=== PATIENT | female | born 1935 | race Caucasian/White ===

== ENCOUNTER 2016-11-25 12:01 | Emergency (ER) | payer MEDICARE, OTHER ==
[~2016-11-25] VITALS: Ht 165.1 cm; Wt 103.0 kg
[~2016-11-25 12:01] MED LIST: ACET-62 PO; APIX5TAB PO; BACI1CAP4 PO; CALC-850 PO CHEW; CHOL400T23 PO; CYCL5TAB PO; DONE10TA PO; FERR142T14 PO; GABA-305 PO; LEVO112T7 PO; LORA0.5T2 PO; MELA5TAB14 PO; MELO-273 PO; MEMA28CA PO; NITR0.4T39 PO; OMEP20CA4 PO; ONDA4TAB7 SL; OXYC1TAB66 PO; PRIM50TA30 PO; PROM25TA7 PO; VENL75TA4 PO; [UNRECOGNIZED DRUG - CODE] PO
[2016-11-25 12:05] VITALS: Ht 165.1 cm; Wt 103.0 kg
--- OUTSIDE RECORDS SUMMARY | 2016-11-25 12:05 | XMS REPORT | Continuity of Care Document ---
Author Author [facility] Organization [facility] Address Unknown Phone Unavailable Allergies Medications Problems Procedures Results Encounters ACCT No. Visit Date/Time Discharge Status Pt. Type Provider Facility Loc./Unit Complaint [id number] 11/21/2013 12:44:00 11/21/2013 23 :59:59 CLS Outpatient [id number] 11/07/2013 15:10:00 11/07/2013 23 :59:59 CLS Outpatient [id number] 11/05/2013 14:25:00 11/05/2013 23 :59:59 CLS Outpatient [id number] 10/17/2013 14:13:00 10/17/2013 23 :59:59 CLS Outpatient [id number] 10/15/2013 14:49:00 10/15/2013 23 :59:59 CLS Outpatient [id number] 09/24/2013 15:27:00 09/24/2013 23 :59:59 CLS Outpatient [id number] 09/09/2013 14:29:00 09/09/2013 23 :59:59 CLS Outpatient
--- OUTSIDE RECORDS SUMMARY | 2016-11-25 12:07 | XMS REPORT | Continuity of Care Document ---
Author Author [facility] Organization [facility] Address Unknown Phone Unavailable Support Name Relationship Address Phone ELDA TRACEY MD Caregiver [address] [place] [phone] STEPHANE WARNER MD Caregiver [address] [place] [phone] VALENTINA PUTNAM Next Of Kin [address] [place], [place] [id number] Insurance Providers Payer Name Policy Number Subscriber Name Relationship Medicare [id number] Diana Brunson 18 Self Other A Insurance [id number] Diana Brunson 18 Self Advance Directives Directive Response Recorded Date/Time Advanced Directives Type None 10/03/14 10:07pm Problems Medical Problems Problem Onset Date Status INTRACTABLE N/V, HYPONATREMIA Unknown Active Hyponatremia Unknown Active Intermittent confusion Unknown Active Mild hypovolemia Unknown Active REFRACTORY NAUSEA & VOMITING Unknown Active Chronic headache Unknown Active UTI (lower urinary tract infection) Unknown Active Decreased appetite Unknown Active Abdominal pain Unknown Active Chronic headache Unknown Active Gait instability Unknown Active Nausea Unknown Active Gait instability Unknown Active CAD (coronary artery disease) Unknown Active Hypercholesterolemia Unknown Active Hypothyroidism Unknown Active GERD (gastroesophageal reflux disease) Unknown Active History of kidney stones Unknown Resolved Myoclonic jerking Unknown Active Laceration of head Unknown Active Fall Unknown Active Laceration of head Unknown Active Gastroenteritis Unknown Active GERD (gastroesophageal reflux disease) Unknown Active Abdominal pain Unknown Active Intractable nausea and vomiting Unknown Active History of cardiac arrhythmia Unknown Active Aortic stenosis Unknown Active Depression Unknown Active Gastroenteritis Unknown Active Hypokalemia Unknown Resolved UTI (lower urinary tract infection) Unknown Active Syncopal episodes Unknown Active Medications Medication Dose Route Sig Days/Qty Instructions Order Date Discontinued Date Status Ibandronate Sodium 150 Mg PO MONTHLY 06/30/09 08/18/09 Discontinued Potassium Chloride 10 Meq PO NEEDED 05/04/10 05/07/10 Discontinued Omeprazole 20 Mg PO DAILY 10/25/08 06/29/09 Discontinued Orlistat 120 Mg PO DAILY 06/30/09 05/03/10 Discontinued Simvastatin 20 Mg PO DAILY 06/30/09 05/03/10 Discontinued Multivitamins 1 Tab PO DAILY 05/04/10 05/07/10 Discontinued Tramadol Hcl 50 Mg PO NEEDED 05/07/10 12/26/12 Discontinued Simvastatin 40 Mg PO DAILY 05/04/10 05/07/10 Discontinued Ascorbic Acid 1,000 Mg PO 2-3 TIMES A WK 05/04/10 05/07/10 Discontinued Glucosa [place] 2KCL/Chondroitin [place] 1 Cap PO 2-3 TIMES A WK 05/04/1011/11 Discontinued Fish Oil/Tyler-3 Fatty Acids 1 Cap PO NEEDED 05/07/10 08/05/10 Discontinued Calcium Carbonate 1 Tab PO DAILY 05/07/10 12/27/12 Discontinued Ferrous Sulfate 1 Tab PO DAILY 05/04/10 05/07/10 Discontinued Polyethylene Glycol 3350 17 Gm PO DAILY 05/07/10 12/10/10 Discontinued Fondaparinux Sodium 2.5 Mg SQ DAILY 05/07/10 07/30/10 Discontinued Docusate Sodium 100 Mg PO TWICE A DAY 05/07/10 07/30/10 Discontinued Potassium Chloride 10 Meq PO DAILY 05/07/10 03/05/13 Discontinued Simvastatin 40 Mg PO BEDTIME 05/07/10 Active Omeprazole 40 Mg PO NEEDED 07/30/10 12/10/10 Discontinued Citalopram Hydrobromide 40 Mg PO DAILY 12/09/10 12/27/12 Discontinued Ascorbic Acid 2,000 Mg PO DAILY 12/09/10 03/05/13 Discontinued Glucosamine Hcl/Chondr [place] A Na 1 Tab PO DAILY 12/09/10 01/02/11 Discontinued Multivitamins W-Minerals 1 Cap PO DAILY 12/09/10 01/02/11 Discontinued Levothyroxine Sodium 100 Mcg PO DAILY 10/22/12 Active Meloxicam 7.5 Mg PO DAILY 10/22/12 Active Prednisone 10 Mg PO DAILY 10/22/12 12/26/12 Discontinued Venlafaxine Hcl 75 Mg PO TWICE A DAY 12/27/12 10/25/13 Discontinued Hydrocodone Bit/Acetaminophen 1 Tab PO EVERY 4 HOURS 12/27/12 Discontinued Donepezil Hcl 10 Mg PO BEDTIME 10/25/13 Active Venlafaxine Hcl 75 Mg PO TWICE A DAY 03/24/14 Active Omeprazole 1 Cap PO DAILY 04/11/14 Active Divalproex Sodium 1 Tab PO TWICE A DAY 04/11/14 Active Ciprofloxacin HCl DAILY 04/11/14 06/23/14 Discontinued Gabapentin 1 Tab PO BEDTIME 04/11/14 06/23/14 Discontinued Hydrocodone/Acetaminophen 1 Tab PO Every 6 Hours 04/11/14 Active Sotalol HCl 80 Mg PO TWICE A DAY 04/11/14 Active Ondansetron 4 Mg PO FOUR TIMES DAILY PRN NAUSEA &/OR VOMITING 4 Qty 06/23/14 Discontinued Gabapentin 600 Mg PO THREE TIMES A DAY 30 Days 06/23/14 Active Cyclobenzaprine HCl 1 Tab PO TWICE A DAY MAY CAUSE DROWSINESS OR DIZZINESS 07/10/14 Active Ciprofloxacin HCl 250 Mg PO DAILY 30 Qty 07/10/14 Active Memantine HCl 5 Mg PO DAILY 10/03/14 Active Lactobacillus Combination No.4 10/03/14 Active Ferrous Sulfate Unknown Dose PO GIVE WITH BREAKFAST 10/03/14 Active Social History Social History Problem Response Recorded Date/Time Hx Substance Use No 10/03/2014 11:53pm Hx Alcohol Use No 10/03/2014 11:53pm Has the pt used tobacco in the last 12 months No 06/20/2014 7:02am Tobacco Usage none 06/20/2014 11:43am Query Response Start Date Stop Date Smoking Status Unknown if ever smoked Hospital Discharge Instructions No hospital discharge instructions. Plan of Care No plan of care. Functional Status Query Response Date Recorded Physical Hygiene Self October 03, 2014 11:53pm Disabilities None October 03, 2014 11:53pm Devices Used None October 03, 2014 11:53pm Dressing Self October 03, 2014 11:53pm Ambulation Assist October 03, 2014 11:53pm Diet Self October 03, 2014 11:53pm Mental Status Alert Oriented October 04, 2014 12:37am Disabilities None October 03, 2014 11:53pm Devices Used None October 03, 2014 11:53pm Physical Hygiene Self October 03, 2014 11:53pm Dressing Self October 03, 2014 11:53pm Ambulation Assist October 03, 2014 11:53pm Diet Self October 03, 2014 11:53pm Allergies, Adverse Reactions, Alerts Allergen Type Severity Reaction Status Last Updated naproxen sodium Adverse Reaction Intermediate HIGH BP, SOA Active 10/03/14 Iodinated Contrast Media - IV Dye Allergy Unknown RASH,SOA Active 10/03/14 Penicillin Allergy Severe ANAPHYLACTIC-ENDED IN ICU FOR A DAY Active 10/03 Sulfa (Sulfonamide Antibiotics) Allergy Unknown RASH,ITCHY Active 10/03/14 Morphine Allergy Unknown Active 10/03/14 Aspirin Adverse Reaction Intermediate HIGH BP, SOA Active 10/03/14 Nitrofurantoin Allergy Unknown Active 10/03/14 Fluoxetine Allergy Unknown Active 10/03/14 Metoclopramide Adverse Reaction Unknown Active 10/03/14 Immunizations Name Given Type Hx Influenza Vaccination N ALLERGIC TO VACCINE Historical Hx Pneumococcal Vaccination No Historical Hx Tetanus, Diptheria, Pertussis No Historical Hx Influenza Vaccination N ALLERGIC TO VACCINE Historical Hx Tetanus, Diptheria, Pertussis No Historical Vital Signs Acute Vital Signs Vital Response Date/Time Temperature (Fahrenheit) 98.2 deg F (96.8 - 99.1) Temperature (Calculated Celsius) 36.65274 degrees C (36.0 - 37.3) Pulse Rate (adult) 66 bpm (60 - 100) Respiratory Rate 16 breaths/min (10 - 20) O2 Sat by Pulse Oximetry 96 % (90 - 100) Blood Pressure 160/78 mm Hg Height 5 ft 6 in Weight 173 lb Body Mass Index 27.0 kg/m^2 Results Test Source Date Result Interp. Ref. Range Comments Activated Partial Thromboplast Time April 11, 2014 11:34am 30.2 SEC N 24-36 Alanine Aminotransferase (ALT/SGPT) October 03, 2014 10:10pm 32 U/L N 9- 52 Albumin October 03, 2014 10:10pm 3.6 G/DL N 3.5-5.0 Albumin/Globulin Ratio October 03, 2014 10:10pm 1.3 RATIO N 1.1-2.2 Alkaline Phosphatase October 03, 2014 10:10pm 70 U/L N 38-126 Amylase Level June 20, 2014 1:09am 58 U/L N 30-110 Anion Gap October 03, 2014 10:10pm 11 MEQ/L N 5-15 Aspartate Amino Transf (AST/SGOT) October 03, 2014 10:10pm 26 U/L N 14- 36 B-Type Natriuretic Peptide December 12, 2007 10:50am 139 PG/ML H 15-100 BUN/Creatinine Ratio October 03, 2014 10:10pm 27 RATIO H 6-26 Band Neutrophils # March 05, 2013 11:19am 2.4 T/MM3 - Band Neutrophils % March 05, 2013 11:19am 11.0 % H 0-6 Basophils # (Auto) October 03, 2014 10:10pm 0.0 T/MM3 N 0-0.2 Basophils (%) (Auto) October 03, 2014 10:10pm 0.3 % N 0-2 Blood Urea Nitrogen October 03, 2014 10:10pm 24.0 MG/DL H 7-17 Calcium Level October 03, 2014 10:10pm 8.7 MG/DL N 8.4-10.2 Calculated Osmolality October 03, 2014 10:10pm 269 MOSM/KG N 261-280 Carbon Dioxide Level October 03, 2014 10:10pm 24 MEQ/L N 22-30 Chemistry Specimen Hemolysis October 03, 2014 10:10pm < 15 0-25 0-25 : No Hemolysis.26-70: Slight Hemolysis - can falsely elevate K and Urine Protein. 71-285: Moderate Hemolysis - can falsely elevate K, Troponin I, CA 19-9, PTH, CSF GLucose, and Urine Protein, and can falsely decrease Phenytoin. 286-999: Gross Hemolysis - can falsely elevate K, Troponin I, CA 19-9, PTH, CSF Glucose, and Urine Protine, and can falsely decrease Phenytoin. Recommend specimen recollection. Chloride Level October 03, 2014 10:10pm 103 MEQ/L N 98-107 Cortisol AM Sample January 14, 2008 8:19am Send out - Creatinine October 03, 2014 10:10pm 0.9 MG/DL N 0.7-1.2 EKG August 17, 2009 11:29pm Complete - Eosinophils # (Auto) October 03, 2014 10:10pm 0.1 T/MM3 N 0-0.5 Eosinophils (%) (Auto) October 03, 2014 10:10pm 1.6 % N 0-4 Erythrocyte Sedimentation Rate March 05, 2013 11:19am 33 MM/HR H 0-20 Fractionated Catecholamines February 26, 2008 2:15pm Sent out - Free Thyroxine January 14, 2008 8:19am 0.67 NG/DL L 0.78-2.19 Free Triiodothyronine January 14, 2008 8:19am 2.91 PG/ML N 2.77-5.27 Globulin October 03, 2014 10:10pm 2.7 G/DL N 2.4-3.6 Glomerular Filtration Rate Calc October 03, 2014 10:10pm 60 - Glucometer June 22, 2014 2:47pm 88 mg/dL N 65-110 Glucose Level October 03, 2014 10:10pm 89 MG/DL N 65-110 Hematocrit October 03, 2014 10:10pm 30.7 % L 36-46 Hemoglobin October 03, 2014 10:10pm 10.0 GM/DL L 12-16 Icterus Index October 03, 2014 10:10pm < 2 0-7 Immature Granulocyte # (Auto) October 03, 2014 10:10pm 0.03 T/MM3 N 0.00 -0.03 Immature Granulocyte % (Auto) October 03, 2014 10:10pm 0.4 % N 0.0-0.5 Lab Scanned Report April 12, 2010 9:33am LAB TEST FORM REQUEST [id number] - Lipase June 20, 2014 1:09am 138 U/L N 23-300 Lymphocytes # (Auto) October 03, 2014 10:10pm 2.5 T/MM3 N 1-4.8 Lymphocytes # (Manual) March 05, 2013 11:19am 1.5 T/MM3 N 1-4.8 Lymphocytes % (Manual) March 05, 2013 11:19am 7.0 % L 23-45 Lymphocytes (%) (Auto) October 03, 2014 10:10pm 34.2 % N 23-45 MRSA Specimen Source April 12, 2010 9:18am Nasal - Magnesium Level June 21, 2014 4:56am 1.9 MG/DL N 1.6-2.3 COMMENT wyatt Mean Corpuscular Hemoglobin October 03, 2014 10:10pm 31.4 UUG N 26-34 Mean Corpuscular Hemoglobin Concent October 03, 2014 10:10pm 32.6 GM/DL N 31-37 Mean Corpuscular Volume October 03, 2014 10:10pm 96.5 UM3 N 80-100 Mean Platelet Volume October 03, 2014 10:10pm 9.8 UM3 N 9.4-12.4 Methicillin-Resist S.aureus DNA PCR April 12, 2010 9:18am Negative - Monocytes # (Auto) October 03, 2014 10:10pm 1.2 T/MM3 H 0-0.8 Monocytes # (Manual) March 05, 2013 11:19am 1.7 T/MM3 H 0-0.8 Monocytes % (Manual) March 05, 2013 11:19am 8.0 % N 0-9.0 Monocytes (%) (Auto) October 03, 2014 10:10pm 15.9 % H 0-9.0 HJ-Qyr-O-Type Natriuretic Peptide October 03, 2014 10:10pm 863 PG/ML H 0 -175 Rule in cut points: <50 years old=450; 50-75 years old=900; >75 years old=1800; When utilizing ProBNP rule-in cut points, adjustment for impaired renal function is typically not required. Neutrophils # (Auto) October 03, 2014 10:10pm 3.5 T/MM3 N 1.8-7.7 Neutrophils # (Manual) March 05, 2013 11:19am 16.0 T/MM3 H 1.8-7.7 Neutrophils % (Manual) March 05, 2013 11:19am 74.0 % H 33-66 Neutrophils (%) (Auto) October 03, 2014 10:10pm 47.6 % N 33-66 Platelet Count October 03, 2014 10:10pm 231 T/MM3 N 130-400 Potassium Level October 03, 2014 10:10pm 4.2 MEQ/L N 3.6-5 Prealbumin April 11, 2014 11:34am 15.9 MG/DL L 17.6-36.0 COMMENT blood in lab Procalcitonin April 11, 2014 11:34am < 0.05 NG/ML - PCT </=0.5 ng/ mL - sepsis not likely;PCT >0.5 and </=2 ng/mL - sepsis possible; PCT >2 ng/mL - sepsis likely; PCT >/=10 ng/mL - systemic inflammatory response - sepsis or septic shock highly indicated. Prothromb Time International Ratio April 11, 2014 11:34am 0.93 N 0.81- 1.09 THERAPUTIC RANGE=2.00-3.00 FOR ANTI-THROMBOSIS THERAPUTIC RANGE=2.50- 3.50 FOR IMPLANTED VALVE RDW Standard Deviation October 03, 2014 10:10pm 50.5 FL H 36.9-50.2 Red Blood Count October 03, 2014 10:10pm 3.18 M/MM3 L 4.00-5.20 Sodium Level October 03, 2014 10:10pm 138 MEQ/L N 134-144 Somatomedin-C January 14, 2008 8:19am Send out - Tests Not Done August 17, 2009 11:57pm Not done - Has specimen been collected/obtained? Y Thyroid Stimulating Hormone (TSH) April 11, 2014 11:34am 0.52 MIU/L N 0.47-4.68 Total Bilirubin October 03, 2014 10:10pm 0.30 MG/DL N 0.20-1.30 Total Protein October 03, 2014 10:10pm 6.3 G/DL N 6.3-8.2 Troponin I October 03, 2014 10:10pm 0.017 ng/ml N 0-0.12 Turbidity October 03, 2014 10:10pm < 20 0-20 Urinalysis Comment October 04, 2014 12:05am Microscopic not ind. - Has specimen been collected/obtained? Y Urine Bacteria July 10, 2014 3:55pm 3+ H - Has specimen been collected/obtained? Y Urine Bilirubin October 04, 2014 12:05am Negative - Has specimen been collected/obtained? Y Urine Blood October 04, 2014 12:05am Negative - Has specimen been collected/obtained? Y Urine Calcium Oxalate Crystals May 04, 2010 9:20am Moderate - Has specimen been collected/obtained? Y Urine Collection Type October 04, 2014 12:05am Voided-not cc-midstr - Has specimen been collected/obtained? Y Urine Color October 04, 2014 12:05am Yellow - Has specimen been collected/obtained? Y Urine Culture Indicated July 10, 2014 3:55pm Cult reflexed &setup - Has specimen been collected/obtained? Y Urine Glucose (UA) October 04, 2014 12:05am Negative - Has specimen been collected/obtained? Y Urine Ketones October 04, 2014 12:05am Negative - Has specimen been collected/obtained? Y Urine Leukocyte Esterase October 04, 2014 12:05am Trace H - Has specimen been collected/obtained? Y Urine Microscopic Not Indicated August 05, 2010 8:01am Not indicated - Has specimen been collected/obtained? Y Urine Nitrite October 04, 2014 12:05am Negative - Has specimen been collected/obtained? Y Urine Protein October 04, 2014 12:05am Negative - Has specimen been collected/obtained? Y Urine RBC July 10, 2014 3:55pm 1-3 /HPF - Has specimen been collected/obtained? Y Urine Renal Epithelial Cells May 04, 2010 9:20am 3-5 /HPF - Has specimen been collected/obtained? Y Urine Specific [place] October 04, 2014 12:05am 1.025 - Has specimen been collected/obtained? Y Urine Squamous Epithelial Cells July 10, 2014 3:55pm 0-5 - Has specimen been collected/obtained? Y Urine Transitional Epithelial Cells May 04, 2010 9:20am 0-1 /HPF - Has specimen been collected/obtained? Y Urine Turbidity October 04, 2014 12:05am Clear - Has specimen been collected/obtained? Y Urine Urobilinogen October 04, 2014 12:05am 0.2 EU/DL - Has specimen been collected/obtained? Y Urine WBC July 10, 2014 3:55pm 50-200 /HPF H - Has specimen been collected/obtained? Y Urine WBC Clumps March 05, 2013 12:50pm Many H - Has specimen been collected/obtained? Y Urine pH October 04, 2014 12:05am 5.5 - Has specimen been collected/ obtained? Y Valproic Acid (Depakene) Level October 03, 2014 10:10pm 32.4 UG/ML L 50- 120 Venous Blood Lactate April 11, 2014 11:34am 0.9 MMOL/L N 0.6-2.2 Vitamin B12 Level April 11, 2014 11:34am 747 PG/ML N 239-931 COMMENT blood in lab White Blood Count October 03, 2014 10:10pm 7.4 T/MM3 N 4.5-11.0 Blood Culture Blood April 11, 2014 11:37am NO GROWTH AFTER 5 DAYS Gram Stain Knee, Intraoperative Site-Right May 04, 2010 1:53pm Urine Culture Urine, Straight Cath July 10, 2014 4:31pm Escherichia Coli Procedures Procedure Status Date Provider(s) COMPREHEN METABOLIC PANEL completed 07/10/14 URINALYSIS AUTO W/SCOPE completed 07/10/14 COMPLETE CBC W/AUTO DIFF WBC completed 07/10/14 CULTURE AEROBIC IDENTIFY completed 07/10/14 URINE CULTURE/COLONY COUNT completed 07/10/14 MICROBE SUSCEPTIBLE GRAEME completed 07/10/14 HYDRATE IV INFUSION ADD-ON completed 07/10/14 HYDRATE IV INFUSION ADD-ON completed 07/10/14 THER/PROPH/DIAG INJ IV PUSH completed 07/10/14 EMERGENCY DEPT VISIT completed 07/10/14 [id number] ITEM OR SERVICE completed 07/10/14 [id number]"INJECTION, HYDROMORPHONE, UP TO 4 MG" completed 07/10/14 [id number]"INFUSION, NORMAL SALINE SOLUTION , 1000 CC" completed 07/10/14 Encounters Encounter Location Date/Time Departed Emergency Room [facility] 10/03/14 10:07pm Departed Emergency Room [facility] 07/10/14 2:48pm Recent Diagnosis
--- OUTSIDE RECORDS SUMMARY | 2016-11-25 12:07 | XMS REPORT | Continuity of Care Document ---
Author Author [facility] Organization [facility] Address Unknown Phone Unavailable Support Name Relationship Address Phone VALENTINA PUTNAM Next Of Kin [address] [place] [address] Unavailable Insurance Providers Payer Name Policy Number Subscriber Name Relationship Medicare [id number] Diana Brunson 16 Self [employer] [id number] Diana Brunson 16 Self Problems No Known Problems or Medical conditions. Family History History Response Recorded Date/Time HX of Orthopedic Surgeries N however, hear due to compression fx t-11 2:59pm Hx Abdominal Surgery Y moises, GASTRIC BYPASS 03/05/13 2:59pm HX Cerebrovascular Accident N 03/05/13 2:59pm Hx Seizures N 03/05/13 2:59pm Hx Angina Y 03/05/13 11:24am Hx Congestive Heart Failure N 03/05/13 2:59pm Hx Heart Attack N 03/05/13 2:59pm Hx Hypertension N 03/05/13 2:59pm Hx Rheumatic Fever N 03/05/13 11:24am Hx Chronic Obstructive Pulmonary Disease (COPD) N 03/05/13 2:59pm Hx Diabetes N 03/05/13 2:59pm Hx Cancer N 03/05/13 2:59pm Hx MRSA N 03/05/13 2:59pm HX of Cardiac Surgeries N 03/05/13 2:59pm HX of Reproductive Surgeries N 03/05/13 2:59pm HX of Endocrine Surgeries Y thyroidectomy 03/05/13 2:59pm HX of Throat Surgery N 03/05/13 2:59pm HX of Neurological Surgeries N 03/05/13 2:59pm HX of Genitourinary Surgeries N 03/05/13 2:59pm Cardiac CAD 01/02/11 9:34pm Social History History Response Recorded Date/Time Smoking Status Never smoker 03/05/13 2:59pm Hx Substance Use N 03/05/13 11:24am Hx Alcohol Use N 03/05/13 11:24am Has the pt used tobacco in the last 12 months N 03/05/13 2:59pm Allergies, Adverse Reactions, Alerts Allergen Type Severity Reaction Last Updated naproxen sodium Adverse Reaction Intermediate HIGH BP, SOA 03/05/13 Iodinated Contrast Media - IV Dye Allergy Unknown RASH,SOA 03/05/13 Penicillins Allergy Severe ANAPHYLACTIC-ENDED IN ICU FOR A DAY 03/05/13 Sulfa (Sulfonamide Antibiotics) Allergy Unknown RASH,ITCHY 03/05/13 morphine Allergy Unknown 03/05/13 aspirin Adverse Reaction Intermediate HIGH BP, SOA 03/05/13 Nitrofurantoin Allergy Unknown 03/05/13 fluoxetine Allergy Unknown 03/05/13 metoclopramide Adverse Reaction Unknown 03/05/13 Medications Medication Dose Units Route Sig Qty Days Promethazine Hcl (Phenergan) 25 Mg PO PRN Prednisone 10 Mg PO DAILY Hydrocodone Bit/Acetaminophen ([place] 7.5/325 Tablet) 1 Tab PO Q4HR Venlafaxine Hcl (Effexor) 75 Mg PO BID Cyclobenzaprine Hcl (Flexeril) 5 Mg PO DAILY Meloxicam (Mobic) 7.5 Mg PO BID Levothyroxine Sodium 125 Mcg PO DAILY Simvastatin (Zocor) 20 Mg PO HS Sotalol Hcl (Sotalol Af) 80 Mg PO BID Zolpidem Tartrate (Ambien) 10 Mg PO HS Ascorbic Acid (Vitamin C) 2000 Mg PO DAILY Potassium Chloride 10 Meq PO DAILY Citalopram Hydrobromide (Celexa) 40 Mg PO DAILY Calcium Carbonate (Calcium) 1 Tab PO DAILY Prednisone 10 Mg PO DAILY Tramadol Hcl (Ultram) 50 Mg PO PRN Immunizations Name Given Type Hx Influenza Vaccination N H Hx Pneumococcal Vaccination N H Hx Tetanus, Diptheria, Pertussis N H Response Recorded Date/Time Status not known Unknown Results Test Date Result Interp. Ref. Range Activated Partial Thromboplast Time March 05, 2013 11:19am 31.7 sec - Alanine Aminotransferase (ALT/SGPT) March 05, 2013 11:19am 35 U/L N 9-52 Albumin March 05, 2013 11:19am 3.3 G/DL L 3.5-5.0 Albumin/Globulin Ratio March 05, 2013 11:19am 1.3 RATIO N 1.1-2.2 Alkaline Phosphatase March 05, 2013 11:19am 78 U/L N 38-126 Amylase Level August 17, 2009 11:46pm 45 U/L N 30-110 Anion Gap March 09, 2013 4:42am 10 MEQ/L N 5-15 Aspartate Amino Transf (AST/SGOT) March 05, 2013 11:19am 31 U/L N 14-36 B-Type Natriuretic Peptide December 12, 2007 10:50am 139 PG/ML H 15-100 BUN/Creatinine Ratio March 09, 2013 4:42am 20 RATIO N 6-26 Band Neutrophils # March 05, 2013 11:19am 2.4 T/MM3 - Band Neutrophils % March 05, 2013 11:19am 11.0 % H 0-6 Basophils # (Auto) March 09, 2013 4:42am 0.0 T/MM3 N 0-0.2 Basophils (%) (Auto) March 09, 2013 4:42am 0.2 % N 0-2 Blood Urea Nitrogen March 09, 2013 4:42am 8.0 MG/DL N 7-17 Calcium Level March 09, 2013 4:42am 8.0 MG/DL L 8.4-10.2 Calculated Osmolality March 09, 2013 4:42am 270 MOSM/KG N 261-280 Carbon Dioxide Level March 09, 2013 4:42am 28 MEQ/L N 22-30 Chloride Level March 09, 2013 4:42am 104 MEQ/L N 98-107 Cortisol AM Sample January 14, 2008 8:19am Send out - Creatinine March 09, 2013 4:42am 0.4 MG/DL DL 0.7-1.2 Eosinophils # (Auto) March 09, 2013 4:42am 0.1 T/MM3 N 0-0.5 Eosinophils (%) (Auto) March 09, 2013 4:42am 0.9 % N 0-4 Erythrocyte Sedimentation Rate March 05, 2013 11:19am 33 MM/HR H 0-20 Fractionated Catecholamines February 26, 2008 2:15pm Sent out - Free Thyroxine January 14, 2008 8:19am 0.67 NG/DL L 0.78-2.19 Free Triiodothyronine January 14, 2008 8:19am 2.91 PG/ML N 2.77-5.27 Globulin March 05, 2013 11:19am 2.6 G/DL N 2.4-3.6 Glucose Level March 09, 2013 4:42am 89 MG/DL N 65-110 Hematocrit March 09, 2013 4:42am 30.8 % L 36-46 Hemoglobin March 09, 2013 4:42am 9.8 GM/DL L 12-16 Lipase August 17, 2009 11:46pm 98 U/L N 23-300 Lymphocytes # (Auto) March 09, 2013 4:42am 1.2 T/MM3 N 1-4.8 Lymphocytes # (Manual) March 05, 2013 11:19am 1.5 T/MM3 N 1-4.8 Lymphocytes % (Manual) March 05, 2013 11:19am 7.0 % L 23-45 Lymphocytes (%) (Auto) March 09, 2013 4:42am 23.0 % N 23-45 Magnesium Level March 05, 2013 11:19am 1.7 MG/DL N 1.6-2.3 Mean Corpuscular Hemoglobin March 09, 2013 4:42am 29.1 UUG N 26-34 Mean Corpuscular Hemoglobin Concent March 09, 2013 4:42am 31.8 GM/DL N 31- 37 Mean Corpuscular Volume March 09, 2013 4:42am 91.4 UM3 N 80-100 Mean Platelet Volume March 09, 2013 4:42am 9.4 UM3 N 9.4-12.4 Monocytes # (Auto) March 09, 2013 4:42am 0.8 T/MM3 N 0-0.8 Monocytes # (Manual) March 05, 2013 11:19am 1.7 T/MM3 H 0-0.8 Monocytes % (Manual) March 05, 2013 11:19am 8.0 % N 0-9.0 Monocytes (%) (Auto) March 09, 2013 4:42am 14.4 % H 0-9.0 Neutrophils # (Auto) March 09, 2013 4:42am 3.2 T/MM3 N 1.8-7.7 Neutrophils # (Manual) March 05, 2013 11:19am 16.0 T/MM3 H 1.8-7.7 Neutrophils % (Manual) March 05, 2013 11:19am 74.0 % H 33-66 Neutrophils (%) (Auto) March 09, 2013 4:42am 59.8 % N 33-66 Platelet Count March 09, 2013 4:42am 259 T/MM3 N 130-400 Potassium Level March 09, 2013 4:42am 4.0 MEQ/L DN 3.6-5 Prothromb Time International Ratio March 05, 2013 11:19am 1.20 N 0.79-1.23 RDW Standard Deviation March 09, 2013 4:42am 46.5 FL N 36.9-50.2 Red Blood Count March 09, 2013 4:42am 3.37 M/MM3 L 4.00-5.20 Sodium Level March 09, 2013 4:42am 142 MEQ/L N 134-144 Somatomedin-C January 14, 2008 8:19am Send out - Tests Not Done August 17, 2009 11:57pm Not done - Thyroid Stimulating Hormone (TSH) January 14, 2008 8:19am 1.51 MIU/ML N 0.47- 4.68 Total Bilirubin March 05, 2013 11:19am 0.60 MG/DL N 0.20-1.30 Total Protein March 05, 2013 11:19am 5.9 G/DL L 6.3-8.2 Troponin I March 05, 2013 9:30pm 0.082 ng/ml N 0-0.12 Urine Bacteria March 05, 2013 12:50pm 4+ H - Urine Bilirubin March 05, 2013 12:50pm Negative - Urine Blood March 05, 2013 12:50pm 3+ H - Urine Calcium Oxalate Crystals May 04, 2010 9:20am Moderate - Urine Collection Type March 05, 2013 12:50pm Straight cath - Urine Color March 05, 2013 12:50pm Yellow - Urine Culture Indicated March 05, 2013 12:50pm Cult reflexed &setup - Urine Glucose (UA) March 05, 2013 12:50pm Negative - Urine Ketones March 05, 2013 12:50pm Negative - Urine Leukocyte Esterase March 05, 2013 12:50pm 2+ H - Urine Nitrite March 05, 2013 12:50pm Negative - Urine Protein March 05, 2013 12:50pm Trace H - Urine RBC March 05, 2013 12:50pm 1-3 /HPF - Urine Renal Epithelial Cells May 04, 2010 9:20am 3-5 /HPF - Urine Specific [place] March 05, 2013 12:50pm 1.015 - Urine Squamous Epithelial Cells March 05, 2013 12:50pm 10-20 - Urine Transitional Epithelial Cells May 04, 2010 9:20am 0-1 /HPF - Urine Turbidity March 05, 2013 12:50pm Very cloudy - Urine Urobilinogen March 05, 2013 12:50pm 1 EU/DL - Urine WBC March 05, 2013 12:50pm 10-20 /HPF H - Urine WBC Clumps March 05, 2013 12:50pm Many H - Urine pH March 05, 2013 12:50pm 5.0 - White Blood Count March 09, 2013 4:42am 5.4 T/MM3 N 4.5-11.0 Urinalysis Comment October 22, 2012 8:16pm Microscopic not ind. - Glucometer March 05, 2013 11:12am 153 mg/dL H 65-110 EKG August 17, 2009 11:29pm Complete - Methicillin-Resist S.aureus DNA PCR April 12, 2010 9:18am Negative - Glomerular Filtration Rate Calc March 09, 2013 4:42am 154 - Immature Granulocyte # (Auto) March 09, 2013 4:42am 0.09 T/MM3 H 0.00-0.03 Immature Granulocyte % (Auto) March 09, 2013 4:42am 1.7 % H 0.0-0.5 Venous Blood Lactate March 05, 2013 12:25pm 1.3 MMOL/L N 0.6-2.2 Procalcitonin March 05, 2013 12:45pm 20.56 NG/ML PH - MRSA Specimen Source April 12, 2010 9:18am Nasal - Urine Microscopic Not Indicated August 05, 2010 8:01am Not indicated - Name: DIANA BRUNSON Unit #: [id number]
: 1935 Sex: F
Loc / Svc: MED Admit Date: 03/05/13
Signed Discharge Date:
DISCHARGE SUMMARY Report #: [id number]

General
Date
Date
DATE: 03/09/13
TIME: 13:07
Attending Physician
Abigail Glass DO
Admitting Physician
Abigail Glass DO
Consulting Physician
Admitting Diagnosis
1. UTI with sepsis< br>2. SIRS
3. Leukocytosis with bandemia
4. Chronic headaches due to prior closed head injury
5. Hypotension
6. Recent fx vertebrae
7. Chronic pain syndrome r/t #4, #7
8. Narcotic dependency r/t #7
9. Hypokalemia. K 2.6
10. Mitral valve prolapse
11. Prior gastric bypass with revision
Discharge Diagnosis
1. UTI with sepsis -- Escherichia coli noted on urine culture
2. bacteremia, ecoli / strep ashton pastuerianus
3. Leukocytosis with bandemia
4. Chronic headaches due to prior closed head injury
5. Hypotension
6. Recent fx vertebrae
7. Chronic pain syndrome r /t #4, #7
8. Narcotic dependency r/t #7
9. Hypokalemia.
10. Mitral valve prolapse
11. Prior gastric bypass with revision
12. Hyponatremia- improved
Procedures
none
Laboratory
Laboratory
Laboratory Tests< br>Test 03/09/13
04:42

White Blood Count 5.4 T/MM3

Red Blood Count 3.37 M/MM3

Hemoglobin 9.8 GM/DL

Hematocrit 30.8 %

Mean Corpuscular Volume 91.4 UM3

Mean Corpuscular Hemoglobin 29.1 UUG

Mean Corpuscular Hemoglobin 31.8 GM/DL
Concent

RDW Standard Deviation 46.5 FL

Platelet Count 259 T/MM3

Mean Platelet Volume 9.4 UM3

Immature Granulocyte % (Auto) 1.7 %

Neutrophils (%) ( Auto) 59.8 %

Lymphocytes (%) (Auto) 23.0 %

Monocytes (%) (Auto) 14.4 %

Eosinophils (%) (Auto) 0.9 %

Basophils (%) (Auto) 0.2 %< br>
Immature Granulocyte # (Auto) 0.09 T/MM3

Neutrophils # (Auto) 3.2 T/MM3

Lymphocytes # (Auto) 1.2 T/MM3

Monocytes # (Auto) 0.8 T/MM3

Eosinophils # (Auto) 0.1 T/MM3

Basophils # (Auto) 0.0 T/ MM3

Sodium Level 142 MEQ/L

Potassium Level 4.0 MEQ/L

Chloride Level 104 MEQ/L

Carbon Dioxide Level 28 MEQ/L

Anion Gap 10 MEQ/L

Blood Urea Nitrogen 8.0 MG/DL

Creatinine 0.4 MG/DL< br>
Glomerular Filtration Rate 154
Calc

BUN/Creatinine Ratio 20 RATIO

Glucose Level 89 MG/DL

Calculated Osmolality 270 MOSM/ KG

Calcium Level 8.0 MG/DL
History of Present Illness
Mrs. Brunson is a 77 year old female who was noted to have difficulty getting her words out starting
last night. Family concerned because 2 years ago she fell face first and has suffered some ongoing
headaches as a result. She has seen multiple neurologists, last seeing Dr. Price in [facility]. She is
on Ultram and Lortab for chronic pain. Daughter Lela reports concern patient was having a stroke so
brought her to ER for evaluation. patient verbalizes thinking she has had a fever recently,
although has not checked it. Denies cough. In Er Mrs. Brunson was found to have WBC 21.6 with a left
shift and bandemia. K 2.6. Procalcitonin 20.56. Urine noted to be grossly infected appearing with 4
+ bacteria, WBC clumps. She was given a dose of IV Levaquin and admitted as an inpt to the
hospitalist service for further monitoring and treatment.
Hospital Course
Pt admitted to the inpt unit under the hospitalist service. She was started on Levaquin, but this
was later changed to rocephin as her C &S revealed better abx coverage with this agent. She was
given IVF, and pain and nausea were controlled with PRN medications. She was given protonix and
SCDs for DVT and GI proteciton. She was given po and IV K for repletion. Overall her hospital stay
was one of steady improvement. PT did see her during her stay and she made good gains with them.
They day of discharge she was feeling well, still having some nausea but po intake was good. She
felt ready to go home. She was instructed to f/u with Dr Amin next week and rxs were called for
keflex 500mg TID for 10 days and zofran ODT #30 for prn nausea control. No other changes were made
to her medications. Should her s/s recur she could contact Dr Amin through the office or return
to the ED for emergent evalaution
Home Meds
Reported Medications
Promethazine Hcl (Phenergan) 25 Mg Tablet 25 Mg PO PRN

Prednisone 10 Mg Tablet 10 Mg PO DAILY
12/27/12
Hydrocodone Bit/Acetaminophen ([place] 7.5/325 Tablet) 1 Tab Tablet 1 Tab PO Q4HR
12/27
Venlafaxine Hcl (Effexor) 75 Mg Tablet 75 Mg PO BID
12/27/12
Cyclobenzaprine Hcl (Flexeril) 5 Mg Tablet 5 Mg PO DAILY
10/22/12
Meloxicam (Mobic) 7.5 Mg Tablet 7.5 Mg PO BID
10/22/12
Levothyroxine Sodium 125 Mcg Tablet 125 Mcg PO DAILY
10/22/12
Simvastatin (Zocor) 20 Mg Tablet 20 Mg PO HS Ref 0
05/07/10
Sotalol Hcl (Sotalol Af) 80 Mg Tablet 80 Mg PO BID Ref 0
05/07/10
Zolpidem Tartrate (Ambien) 10 Mg Tablet 10 Mg PO HS Ref 0
05/07/10
Discontinued Reported Medications
Ascorbic Acid (Vitamin C) 1000 Mg Tablet 2000 Mg PO DAILY Ref 0
12/09
Potassium Chloride 10 Meq Capsule.sa 10 Meq PO DAILY Ref 0

Discharge Disposition
stable
ABIGAIL GLASS Mar 09, 2013 13:14 Procedures Procedure Code Date DIAGNOSTIC COLONOSCOPY 82319 06/30/09 TOTAL KNEE REPLACEMENT 81.54 05/04/10 PACKED CELL TRANSFUSION 99.04 05/07/10 AMBULAT & GAIT TRAINING 93.22 05/07/10 OCCUPATIONAL THERAPY 93.83 05/07/10 THER/PROPH/DIAG INJ IV PUSH 45308 07/30/10 TX/PRO/DX INJ NEW DRUG ADDON 18918 07/30/10 REMOVAL OF THYROID 03220 12/10/10 CONTROL OF NOSEBLEED 31073 01/02/11 THER/PROPH/DIAG INJ IV PUSH 73944 01/02/11 HYDRATE IV INFUSION ADD-ON 45743 01/02/11 CONTROL OF NOSEBLEED 26013 10/22/12 Blood Culture 03/05/13 Gram Stain 05/04/10 Urine Culture 03/05/13 Encounters Encounter Location Date/Time Discharged Inpatient [facility] 03/05/13 1:24pm Departed Emergency Room [facility] 10/22/12 7:19pm
--- OUTSIDE RECORDS SUMMARY | 2016-11-25 12:08 | XMS REPORT | Continuity of Care Document ---
Author Author [facility] Organization [facility] Address Unknown Phone Unavailable Support Name Relationship Address Phone TANNER HUANG MD Caregiver [address] [place] [address] [place] [id number] ELDA TRACEY MD Caregiver [address] [place] [address] [place] [address] [phone] STEPHANE WARNER MD Caregiver [address] [place] [address] [place] [address] VALENTINA PUTNAM Next Of Kin [address] [place], [place] [id number] Insurance Providers Payer Name Policy Number Subscriber Name Relationship Medicare [id number] Diana Brunson 16 Self [place] 1977 Diana Brunson 16 Self Advance Directives Directive Response Recorded Date/Time Advanced Directives Type Living Will DPOA for Healthcare 04/11/14 1:25pm Ordered Resuscitation Status Full Code 04/11/14 3:27pm Chief Complaint and Reason for Visit Chief Complaint GAIT INSTABILITY Reason for Visit Gait instability Nausea Gait instability CAD (coronary artery disease) Hypercholesterolemia Hypothyroidism GERD (gastroesophageal reflux disease) History of kidney stones Myoclonic jerking Problems Medical Problems Problem Onset Date Status [...] stones Unknown Resolved Myoclonic jerking Unknown Active Medications Medication Dose Route Sig Days/Qty Instructions Order Date Discontinued Date Status Zolpidem Tartrate 10 Mg PO BEDTIME 05/07/10 Active Ibandronate Sodium 150 Mg PO MONTHLY 06/30/09 [...] 2-3 TIMES A WK 05/04/1011/11 Discontinued Fish Oil/[place]-3 Fatty Acids 1 Cap PO NEEDED 05/07/10 [...] PO DAILY 12/09/10 01/02/11 Discontinued Levothyroxine Sodium 125 Mcg PO DAILY 10/22/12 Active Meloxicam 7.5 [...] DAY 04/11/14 Active Ciprofloxacin HCl DAILY 04/11/14 Active Gabapentin 1 Tab PO BEDTIME 04/11/14 Active Hydrocodone/Acetaminophen 1 Tab PO Every 6 Hours 04/11/14 Active Sotalol HCl 80 Mg PO TWICE A DAY 04/11/14 Active Social History Social History Problem Response Recorded Date/Time Smoking Status Never smoker 04/11/2014 1:32pm Hx Substance Use No 04/11/2014 10:35am Hx Alcohol Use No 04/11/2014 10:35am Has the pt used tobacco in the last 12 months No 04/11/2014 1:32pm Query Response Start Date Stop Date Smoking Status Never smoker Hospital Discharge Instructions Instructions: Care Instructions: Reason for Hospitalization: Myoclonic jerking I was in the hospital because (patient own words): IT WAS HARD TO WALK AND I HAD A HEADACHE Discharge Diet: Cardiac, plenty of fluids Discharge Activity: As tolerated Follow Up Appointments: Dr Mcguire in ~ 1 week Condition at time of discharge: Good Care Plan Discharge Patient: Goal: Understand discharge plan Patient Instructions: see patient instructions Plan of Care Discharge Date 04/12/14 3:30pm Disposition 01 DISCHARGED HOME, SELF-CARE Instructions/Education Provided Myoclonus DI for Dehydration -- Adult Prescriptions See Medications Section Functional Status Query Response Date Recorded Physical Hygiene Self April 12, 2014 2:46pm Disabilities None April 12, 2014 2:46pm Devices Used Cane April 12, 2014 2:46pm Dressing Self April 12, 2014 2:46pm Ambulation Self April 12, 2014 2:46pm Diet Self April 12, 2014 2:46pm Mental Status Alert April 12, 2014 2:46pm Disabilities None April 12, 2014 2:46pm Devices Used Cane April 12, 2014 2:46pm Physical Hygiene Self April 12, 2014 2:46pm Dressing Self April 12, 2014 2:46pm Ambulation Self April 12, 2014 2:46pm Diet Self April 12, 2014 2:46pm Allergies, Adverse Reactions, Alerts Allergen Type Severity Reaction Status Last Updated naproxen sodium Adverse Reaction Intermediate HIGH BP, SOA Active 04/11/14 Iodinated Contrast Media - IV Dye Allergy Unknown RASH,SOA Active 04/11/14 Penicillin Allergy Severe ANAPHYLACTIC-ENDED IN ICU FOR A DAY Active 04/11 Sulfa (Sulfonamide Antibiotics) Allergy Unknown RASH,ITCHY Active 04/11/14 Morphine Allergy Unknown Active 04/11/14 Aspirin Adverse Reaction Intermediate HIGH BP, SOA Active 04/11/14 Nitrofurantoin Allergy Unknown Active 04/11/14 Fluoxetine Allergy Unknown Active 04/11/14 Metoclopramide Adverse Reaction Unknown Active 04/11/14 Immunizations Name Given Type Hx Influenza Vaccination N ALLERGIC TO VACCINE Historical Hx Pneumococcal Vaccination No Historical Hx Tetanus, Diptheria, Pertussis No Historical Hx Influenza Vaccination N ALLERGIC TO VACCINE Historical Hx Tetanus, Diptheria, Pertussis No Historical Vital Signs Acute Vital Signs Vital Response Date/Time Temperature (Fahrenheit) 98.3 deg F (96.8 - 99.1) Temperature (Calculated Celsius) 36.53419 degrees C (36.0 - 37.3) Temperature Source Oral Pulse Rate (adult) 62 bpm (60 - 100) Respiratory Rate 16 breaths/min (10 - 20) O2 Sat by Pulse Oximetry 99 % (90 - 100) Blood Pressure 152/83 mm Hg Blood Pressure Source Automatic Cuff Height 5 ft 5 in Weight 155 lb Body Mass Index 25.0 kg/m^2 Results Test Source Date Result Interp. Ref. Range Comments Activated Partial Thromboplast Time April 11, 2014 11:34am 30.2 SEC N 24-36 Alanine Aminotransferase (ALT/SGPT) April 11, 2014 11:34am 30 U/L N 9- 52 Albumin April 11, 2014 11:34am 3.2 G/DL L 3.5-5.0 Albumin/Globulin Ratio April 11, 2014 11:34am 1.2 RATIO N 1.1-2.2 Alkaline Phosphatase April 11, 2014 11:34am 82 U/L N 38-126 Amylase Level March 24, 2014 3:00pm 69 U/L N 30-110 Anion Gap April 12, 2014 4:12am 10 MEQ/L N 5-15 Aspartate Amino Transf (AST/SGOT) April 11, 2014 11:34am 33 U/L N 14- 36 B-Type Natriuretic Peptide December 12, 2007 10:50am 139 PG/ML H 15-100 BUN/Creatinine Ratio April 12, 2014 4:12am 17 RATIO N 6-26 Band Neutrophils # March 05, 2013 11:19am 2.4 T/MM3 - Band Neutrophils % March 05, 2013 11:19am 11.0 % H 0-6 Basophils # (Auto) April 12, 2014 4:12am 0.0 T/MM3 N 0-0.2 Basophils (%) (Auto) April 12, 2014 4:12am 0.7 % N 0-2 Blood Urea Nitrogen April 12, 2014 4:12am 10.0 MG/DL N 7-17 Calcium Level April 12, 2014 4:12am 8.5 MG/DL N 8.4-10.2 Calculated Osmolality April 12, 2014 4:12am 266 MOSM/KG N 261-280 Carbon Dioxide Level April 12, 2014 4:12am 29 MEQ/L N 22-30 Chemistry Specimen Hemolysis April 12, 2014 4:12am < 15 0-25 0-25: No Hemolysis.26-70: Slight Hemolysis - can falsely elevate K and Urine Protein. 71-285: Moderate Hemolysis - can falsely elevate K, Troponin I, CA 19-9, PTH, CSF GLucose, and Urine Protein, and can falsely decrease Phenytoin. 286-999: Gross Hemolysis - can falsely elevate K, Troponin I, CA 19-9, PTH, CSF Glucose, and Urine Protine, and can falsely decrease Phenytoin. Recommend specimen recollection. Chloride Level April 12, 2014 4:12am 100 MEQ/L N 98-107 Cortisol AM Sample January 14, 2008 8:19am Send out - Creatinine April 12, 2014 4:12am 0.6 MG/DL L 0.7-1.2 EKG August 17, 2009 11:29pm Complete - Eosinophils # (Auto) April 12, 2014 4:12am 0.1 T/MM3 N 0-0.5 Eosinophils (%) (Auto) April 12, 2014 4:12am 2.6 % N 0-4 Erythrocyte Sedimentation Rate March 05, 2013 11:19am 33 MM/HR H 0-20 Fractionated Catecholamines February 26, 2008 2:15pm Sent out - Free Thyroxine January 14, 2008 8:19am 0.67 NG/DL L 0.78-2.19 Free Triiodothyronine January 14, 2008 8:19am 2.91 PG/ML N 2.77-5.27 Globulin April 11, 2014 11:34am 2.6 G/DL N 2.4-3.6 Glomerular Filtration Rate Calc April 12, 2014 4:12am 96 - Glucometer October 27, 2013 10:10am 129 mg/dL H 65-110 Glucose Level April 12, 2014 4:12am 89 MG/DL N 65-110 Hematocrit April 12, 2014 4:12am 33.9 % L 36-46 Hemoglobin April 12, 2014 4:12am 10.9 GM/DL L 12-16 Icterus Index April 12, 2014 4:12am < 2 0-7 Immature Granulocyte # (Auto) April 12, 2014 4:12am 0.04 T/MM3 H 0.00- 0.03 Immature Granulocyte % (Auto) April 12, 2014 4:12am 0.9 % H 0.0-0.5 Lab Scanned Report April 12, 2010 9:33am LAB TEST FORM REQUEST [id number] - Lipase March 24, 2014 3:00pm 181 U/L N 23-300 Lymphocytes # (Auto) April 12, 2014 4:12am 1.5 T/MM3 N 1-4.8 Lymphocytes # (Manual) March 05, 2013 11:19am 1.5 T/MM3 N 1-4.8 Lymphocytes % (Manual) March 05, 2013 11:19am 7.0 % L 23-45 Lymphocytes (%) (Auto) April 12, 2014 4:12am 32.8 % N 23-45 MRSA Specimen Source April 12, 2010 9:18am Nasal - Magnesium Level April 11, 2014 11:34am 2.0 MG/DL N 1.6-2.3 Mean Corpuscular Hemoglobin April 12, 2014 4:12am 30.2 UUG N 26-34 Mean Corpuscular Hemoglobin Concent April 12, 2014 4:12am 32.2 GM/DL N 31-37 Mean Corpuscular Volume April 12, 2014 4:12am 93.9 UM3 N 80-100 Mean Platelet Volume April 12, 2014 4:12am 9.0 UM3 L 9.4-12.4 Methicillin-Resist S.aureus DNA PCR April 12, 2010 9:18am Negative - Monocytes # (Auto) April 12, 2014 4:12am 0.7 T/MM3 N 0-0.8 Monocytes # (Manual) March 05, 2013 11:19am 1.7 T/MM3 H 0-0.8 Monocytes % (Manual) March 05, 2013 11:19am 8.0 % N 0-9.0 Monocytes (%) (Auto) April 12, 2014 4:12am 15.7 % H 0-9.0 YR-Ehx-A-Type Natriuretic Peptide April 11, 2014 11:34am 715 PG/ML H 0- 175 Rule in cut points: <50 years old=450; 50-75 years old=900; >75 years old=1800; When utilizing ProBNP rule-in cut points, adjustment for impaired renal function is typically not required. Neutrophils # (Auto) April 12, 2014 4:12am 2.2 T/MM3 N 1.8-7.7 Neutrophils # (Manual) March 05, 2013 11:19am 16.0 T/MM3 H 1.8-7.7 Neutrophils % (Manual) March 05, 2013 11:19am 74.0 % H 33-66 Neutrophils (%) (Auto) April 12, 2014 4:12am 47.3 % N 33-66 Platelet Count April 12, 2014 4:12am 314 T/MM3 N 130-400 Potassium Level April 12, 2014 4:12am 3.9 MEQ/L N 3.6-5 Prealbumin April 11, 2014 [...] 3.50 FOR IMPLANTED VALVE RDW Standard Deviation April 12, 2014 4:12am 46.0 FL N 36.9-50.2 Red Blood Count April 12, 2014 4:12am 3.61 M/MM3 L 4.00-5.20 Sodium Level April 12, 2014 4:12am 139 MEQ/L N 134-144 Somatomedin-C January 14, 2008 8:19am Send out - Tests Not Done August 17, 2009 11:57pm Not done - Has specimen been collected/obtained? Y Thyroid Stimulating Hormone (TSH) April 11, 2014 11:34am 0.52 MIU/L N 0.47-4.68 Total Bilirubin April 11, 2014 11:34am < 0.10 MG/DL L 0.20-1.30 Total Protein April 11, 2014 11:34am 5.8 G/DL L 6.3-8.2 Troponin I April 11, 2014 11:34am < 0.012 ng/ml 0-0.12 Turbidity April 12, 2014 4:12am < 20 0-20 Urinalysis Comment April 11, 2014 10:55am Microscopic not ind. - Has specimen been collected/obtained? Y Urine Bacteria March 24, 2014 3:50pm 3+ H - Has specimen been collected/ obtained? Y Urine Bilirubin April 11, 2014 10:55am Negative - Has specimen been collected/obtained? Y Urine Blood April 11, 2014 10:55am Negative - Has specimen been collected/obtained? Y Urine Calcium Oxalate Crystals May 04, 2010 9:20am Moderate - Has specimen been collected/obtained? Y Urine Collection Type April 11, 2014 10:55am Straight cath - Has specimen been collected/obtained? Y Urine Color April 11, 2014 10:55am Yellow - Has specimen been collected/obtained? Y Urine Culture Indicated March 24, 2014 3:50pm Cult reflexed &setup - Has specimen been collected/obtained? Y Urine Glucose (UA) April 11, 2014 10:55am Negative - Has specimen been collected/obtained? Y Urine Ketones April 11, 2014 10:55am Negative - Has specimen been collected/obtained? Y Urine Leukocyte Esterase April 11, 2014 10:55am Negative - Has specimen been collected/obtained? Y Urine Microscopic Not Indicated August 05, 2010 8:01am Not indicated - Has specimen been collected/obtained? Y Urine Nitrite April 11, 2014 10:55am Negative - Has specimen been collected/obtained? Y Urine Protein April 11, 2014 10:55am Negative - Has specimen been collected/obtained? Y Urine RBC March 24, 2014 3:50pm 1-3 /HPF - Has specimen been collected /obtained? Y Urine Renal Epithelial Cells May 04, 2010 9:20am 3-5 /HPF - Has specimen been collected/obtained? Y Urine Specific [place] April 11, 2014 10:55am 1.020 - Has specimen been collected/obtained? Y Urine Squamous Epithelial Cells March 05, 2013 12:50pm 10-20 - Has specimen been collected/obtained? Y Urine Transitional Epithelial Cells May 04, 2010 9:20am 0-1 /HPF - Has specimen been collected/obtained? Y Urine Turbidity April 11, 2014 10:55am Clear - Has specimen been collected/obtained? Y Urine Urobilinogen April 11, 2014 10:55am 0.2 EU/DL - Has specimen been collected/obtained? Y Urine WBC March 24, 2014 3:50pm 20-30 /HPF H - Has specimen been collected/obtained? Y Urine WBC Clumps March 05, 2013 12:50pm Many H - Has specimen been collected/obtained? Y Urine pH April 11, 2014 10:55am 7.0 - Has specimen been collected/ obtained? Y Venous Blood Lactate April 11, 2014 11:34am 0.9 MMOL/L N 0.6-2.2 Vitamin B12 Level April 11, 2014 11:34am 747 PG/ML N 239-931 COMMENT blood in lab White Blood Count April 12, 2014 4:12am 4.6 T/MM3 N 4.5-11.0 Blood Culture Blood April 11, 2014 11:37am NO GROWTH AFTER 24 HOURS Gram Stain Knee, Intraoperative Site-Right May 04, 2010 1:53pm Urine Culture Urine, Straight Cath March 24, 2014 4:31pm Escherichia Coli Name: DIANA BRUNSON Unit #: [id number] : 1935 Sex: F Loc / Svc: ED DOS: 04/11/14 Signed Report #: [id number] DIAGNOSTIC IMAGING REPORT TYPE OF EXAM: CT HEAD W/O CONTRAST Dictated By: KOLBY KIM MD INDICATION: ITS.REASON: altered, AMANDA CT HEAD W/O CONTRAST: Comparison: March 05, 2013 Technique: Axial CT images through the head were performed without contrast. FINDINGS: The ventricles are of normal size, shape, and contour for the patient 's age. There are scattered areas of low attenuation in the white matter which most likely represent changes from chronic microvascular ischemia. The brainstem, cerebellum, and cerebral hemispheres otherwise have a normal morphology and CT attenuation. There is no evidence of midline displacement. No hemorrhage , signs of acute territorial stroke, mass effect, mass lesions, or edema is evident. The visualized portions of the skull base, midface, and calvarium demonstrate no abnormality. The paranasal sinuses are well aerated and free of significant disease. The tympanic and mastoid cavities appear normal. IMPRESSION: No acute intracranial abnormality or hemorrhage. . Procedures Procedure Status Date Provider(s) THER/PROPH/DIAG INJ IV PUSH completed 03/24/14 Encounters Encounter Location Date/Time Discharged Inpatient [facility] 04/11/14 12:51pm Departed Emergency Room [facility] 03/24/14 2:48pm Recent Diagnosis Gait instability Nausea Gait instability CAD (coronary artery disease) Hypercholesterolemia Hypothyroidism GERD (gastroesophageal reflux disease) History of kidney stones Myoclonic jerking
--- OUTSIDE RECORDS SUMMARY | 2016-11-25 12:08 | XMS REPORT | Continuity of Care Document ---
Author Author [facility] Organization [facility] Address Unknown Phone Unavailable Support Name Relationship Address Phone ELDA AMIN MD Caregiver [address] [place] [phone] ELIZABETH GARZA MD Caregiver [address] [place] [phone] VALENTINA PUTNAM Next Of Kin [address] [place], [place] [id number] Insurance Providers Payer Name Policy Number Subscriber Name Relationship Medicare [id number] Diana Brunson 18 Self Other A Insurance [id number] Diana Brunson 16 Self Advance Directives Directive Response Recorded Date/Time Advanced Directives Type Living Will DPOA for Healthcare 07/10/14 3:19pm Chief Complaint and Reason for Visit Chief Complaint Nausea,Vomiting,Diarrhea Reason for Visit Gastroenteritis [id number] Abdominal pain Problems Medical Problems Problem Onset Date Status [...] UTI (lower urinary tract infection) Unknown Active Medications Medication Dose Route Sig [...] 2-3 TIMES A WK 05/04/1011/11 Discontinued Fish Oil/Amboy-3 Fatty Acids 1 Cap PO NEEDED 05/07/10 [...] TIMES A DAY 30 Days 06/23/14 Active Ondansetron 4 Mg PO Q6H/0300,0900,1500,2100 30 Qty Oral disintegrating tablet 06/23/14 Active Cyclobenzaprine HCl 1 Tab PO TWICE A DAY 07/10/14 Active Ciprofloxacin HCl 1 Tab PO TWICE A DAY 10 Qty 07/10/14 Active Ciprofloxacin HCl 250 Mg PO DAILY 30 Qty 07/10/14 Active Social History Social History Problem Response Recorded Date/Time Smoking Status Never smoker 07/10/2014 3:29pm Hx Substance Use No 07/10/2014 3:29pm Hx Alcohol Use No 07/10/2014 3:29pm Has the pt used tobacco in the last 12 months No 06/20/2014 7:02am Query Response Start Date Stop Date Smoking Status Never smoker Hospital Discharge Instructions Instructions: Care Instructions: Reason for Hospitalization: hypokalemia, intractable vomiting I was in the hospital because (patient own words): "NAUSEA" Discharge Activity: As Tolerated Follow Up Appointments: FOLLOW UP WITH DR. AMIN ON 06/30/14 AT 9:30 AM Patient Instructions: Resume home medications as directed Condition at time of discharge: Good Have blood checked on 07/14 as outpatient. Notify Physician If: 1. Call your surgeon if you are having problems relating to your bowels at [phone]. 2. Please call Dr[address] Alicea or return to the emergency room if you develope fevers, chills, chest pain, shortness of breath, abdominal pain, dizziness with standing, passing out. Condition at time of discharge: Good Good Good General Information: n/a Condition at time of discharge: Fair Plan of Care Discharge Date 06/23/14 4:05pm Disposition 01 DISCHARGED HOME, SELF-CARE Condition at Discharge Improved Instructions/Education Provided [place] Diet Nausea and Vomiting-Adult Prescriptions See Medications Section Referrals ELDA AMIN MD 3 Days Functional Status Query Response Date Recorded Physical Hygiene Self July 10, 2014 3:29pm Disabilities None July 10, 2014 3:29pm Devices Used Walker July 10, 2014 3:29pm Dressing Self July 10, 2014 3:29pm Ambulation Assist July 10, 2014 3:29pm Diet Assist July 10, 2014 3:29pm Mental Status Alert Oriented July 10, 2014 3:29pm Disabilities None July 10, 2014 3:29pm Devices Used Walker July 10, 2014 3:29pm Physical Hygiene Self July 10, 2014 3:29pm Dressing Self July 10, 2014 3:29pm Ambulation Assist July 10, 2014 3:29pm Diet Assist July 10, 2014 3:29pm Allergies, Adverse Reactions, Alerts Allergen Type Severity Reaction Status Last Updated naproxen sodium Adverse Reaction Intermediate HIGH BP, SOA Active 07/10/14 Iodinated Contrast Media - IV Dye Allergy Unknown RASH,SOA Active 07/10/14 Penicillin Allergy Severe ANAPHYLACTIC-ENDED IN ICU FOR A DAY Active 06/20 Sulfa (Sulfonamide Antibiotics) Allergy Unknown RASH,ITCHY Active 07/10/14 Morphine Allergy Unknown Active 07/10/14 Aspirin Adverse Reaction Intermediate HIGH BP, SOA Active 07/10/14 Nitrofurantoin Allergy Unknown Active 07/10/14 Fluoxetine Allergy Unknown Active 07/10/14 Metoclopramide Adverse Reaction Unknown Active 07/10/14 Immunizations Name Given Type Hx Influenza Vaccination N ALLERGIC TO VACCINE Historical Hx Pneumococcal Vaccination No Historical Hx Tetanus, Diptheria, Pertussis No Historical Hx Influenza Vaccination N ALLERGIC TO VACCINE Historical Hx Tetanus, Diptheria, Pertussis No Historical Vital Signs Acute Vital Signs Vital Response Date/Time Temperature (Fahrenheit) 97.2 deg F (96.8 - 99.1) Temperature (Calculated Celsius) 36.78175 degrees C (36.0 - 37.3) Pulse Rate (adult) 65 bpm (60 - 100) Respiratory Rate 16 breaths/min (10 - 20) O2 Sat by Pulse Oximetry 94 % (90 - 100) Blood Pressure 160/70 mm Hg Height 5 ft 5 in Weight 163 lb Body Mass Index 27.0 kg/m^2 Results Test Source Date Result Interp. Ref. Range Comments Activated Partial Thromboplast Time April 11, 2014 11:34am 30.2 SEC N 24-36 Alanine Aminotransferase (ALT/SGPT) July 10, 2014 3:50pm 33 U/L N 9- 52 Albumin July 10, 2014 3:50pm 3.3 G/DL L 3.5-5.0 Albumin/Globulin Ratio July 10, 2014 3:50pm 1.2 RATIO N 1.1-2.2 Alkaline Phosphatase July 10, 2014 3:50pm 91 U/L N 38-126 Amylase Level June 20, 2014 1:09am 58 U/L N 30-110 Anion Gap July 10, 2014 3:50pm 5 MEQ/L N 5-15 Aspartate Amino Transf (AST/SGOT) July 10, 2014 3:50pm 25 U/L N 14- 36 B-Type Natriuretic Peptide December 12, 2007 10:50am 139 PG/ML H 15-100 BUN/Creatinine Ratio July 10, 2014 3:50pm 23 RATIO N 6-26 Band Neutrophils # March 05, 2013 11:19am 2.4 T/MM3 - Band Neutrophils % March 05, 2013 11:19am 11.0 % H 0-6 Basophils # (Auto) July 10, 2014 3:50pm 0.0 T/MM3 N 0-0.2 Basophils (%) (Auto) July 10, 2014 3:50pm 0.8 % N 0-2 Blood Urea Nitrogen July 10, 2014 3:50pm 14.0 MG/DL N 7-17 Calcium Level July 10, 2014 3:50pm 8.4 MG/DL N 8.4-10.2 Calculated Osmolality July 10, 2014 3:50pm 259 MOSM/KG L 261-280 Carbon Dioxide Level July 10, 2014 3:50pm 28 MEQ/L N 22-30 Chemistry Specimen Hemolysis July 10, 2014 3:50pm < 15 0-25 0-25 : No Hemolysis.26-70: [...] decrease Phenytoin. Recommend specimen recollection. Chloride Level July 10, 2014 3:50pm 101 MEQ/L N 98-107 Cortisol AM Sample January 14, 2008 8:19am Send out - Creatinine July 10, 2014 3:50pm 0.6 MG/DL L 0.7-1.2 EKG August 17, 2009 11:29pm Complete - Eosinophils # (Auto) July 10, 2014 3:50pm 0.1 T/MM3 N 0-0.5 Eosinophils (%) (Auto) July 10, 2014 3:50pm 1.3 % N 0-4 Erythrocyte Sedimentation Rate March 05, 2013 11:19am 33 MM/HR H 0-20 Fractionated Catecholamines February 26, 2008 2:15pm Sent out - Free Thyroxine January 14, 2008 8:19am 0.67 NG/DL L 0.78-2.19 Free Triiodothyronine January 14, 2008 8:19am 2.91 PG/ML N 2.77-5.27 Globulin July 10, 2014 3:50pm 2.8 G/DL N 2.4-3.6 Glomerular Filtration Rate Calc July 10, 2014 3:50pm 96 - Glucometer June 22, 2014 2:47pm 88 mg/dL N 65-110 Glucose Level July 10, 2014 3:50pm 97 MG/DL N 65-110 Hematocrit July 10, 2014 3:50pm 32.9 % L 36-46 Hemoglobin July 10, 2014 3:50pm 10.6 GM/DL L 12-16 Icterus Index July 10, 2014 3:50pm < 2 0-7 Immature Granulocyte # (Auto) July 10, 2014 3:50pm 0.01 T/MM3 N 0.00 -0.03 Immature Granulocyte % (Auto) July 10, 2014 3:50pm 0.2 % N 0.0-0.5 Lab Scanned Report April 12, 2010 9:33am LAB TEST FORM REQUEST [id number] - Lipase June 20, 2014 1:09am 138 U/L N 23-300 Lymphocytes # (Auto) July 10, 2014 3:50pm 1.9 T/MM3 N 1-4.8 Lymphocytes # (Manual) March 05, 2013 11:19am 1.5 T/MM3 N 1-4.8 Lymphocytes % (Manual) March 05, 2013 11:19am 7.0 % L 23-45 Lymphocytes (%) (Auto) July 10, 2014 3:50pm 35.6 % N 23-45 MRSA Specimen Source April 12, 2010 9:18am Nasal - Magnesium Level June 21, 2014 4:56am 1.9 MG/DL N 1.6-2.3 COMMENT wyatt Mean Corpuscular Hemoglobin July 10, 2014 3:50pm 30.9 UUG N 26-34 Mean Corpuscular Hemoglobin Concent July 10, 2014 3:50pm 32.2 GM/DL N 31-37 Mean Corpuscular Volume July 10, 2014 3:50pm 95.9 UM3 N 80-100 Mean Platelet Volume July 10, 2014 3:50pm 9.2 UM3 L 9.4-12.4 Methicillin-Resist S.aureus DNA PCR April 12, 2010 9:18am Negative - Monocytes # (Auto) July 10, 2014 3:50pm 0.7 T/MM3 N 0-0.8 Monocytes # (Manual) March 05, 2013 11:19am 1.7 T/MM3 H 0-0.8 Monocytes % (Manual) March 05, 2013 11:19am 8.0 % N 0-9.0 Monocytes (%) (Auto) July 10, 2014 3:50pm 12.3 % H 0-9.0 LA-Opj-A-Type Natriuretic Peptide April 11, 2014 11:34am 715 PG/ML H 0- 175 Rule in cut points: <50 years old=450; 50-75 years old=900; >75 years old=1800; When utilizing ProBNP rule-in cut points, adjustment for impaired renal function is typically not required. Neutrophils # (Auto) July 10, 2014 3:50pm 2.6 T/MM3 N 1.8-7.7 Neutrophils # (Manual) March 05, 2013 11:19am 16.0 T/MM3 H 1.8-7.7 Neutrophils % (Manual) March 05, 2013 11:19am 74.0 % H 33-66 Neutrophils (%) (Auto) July 10, 2014 3:50pm 49.8 % N 33-66 Platelet Count July 10, 2014 3:50pm 284 T/MM3 N 130-400 Potassium Level July 10, 2014 3:50pm 4.4 MEQ/L N 3.6-5 Prealbumin April 11, 2014 [...] 3.50 FOR IMPLANTED VALVE RDW Standard Deviation July 10, 2014 3:50pm 51.4 FL H 36.9-50.2 Red Blood Count July 10, 2014 3:50pm 3.43 M/MM3 L 4.00-5.20 Sodium Level July 10, 2014 3:50pm 134 MEQ/L N 134-144 Somatomedin-C January 14, 2008 8:19am Send out - Tests Not Done August 17, 2009 11:57pm Not done - Has specimen been collected/obtained? Y Thyroid Stimulating Hormone (TSH) April 11, 2014 11:34am 0.52 MIU/L N 0.47-4.68 Total Bilirubin July 10, 2014 3:50pm 0.20 MG/DL N 0.20-1.30 Total Protein July 10, 2014 3:50pm 6.1 G/DL L 6.3-8.2 Troponin I April 11, 2014 11:34am < 0.012 ng/ml 0-0.12 Turbidity July 10, 2014 3:50pm < 20 0-20 Urinalysis Comment June 20, 2014 1:23am Microscopic not ind. - Has specimen been collected/obtained? Y Urine Bacteria July 10, 2014 3:55pm 3+ H - Has specimen been collected/obtained? Y Urine Bilirubin July 10, 2014 3:55pm Negative - Has specimen been collected/obtained? Y Urine Blood July 10, 2014 3:55pm Trace-intact H - Has specimen been collected/obtained? Y Urine Calcium Oxalate Crystals May 04, 2010 9:20am Moderate - Has specimen been collected/obtained? Y Urine Collection Type July 10, 2014 3:55pm Straight cath - Has specimen been collected/obtained? Y Urine Color July 10, 2014 3:55pm Yellow - Has specimen been collected/obtained? Y Urine Culture Indicated July 10, 2014 3:55pm Cult reflexed &setup - Has specimen been collected/obtained? Y Urine Glucose (UA) July 10, 2014 3:55pm Negative - Has specimen been collected/obtained? Y Urine Ketones July 10, 2014 3:55pm Negative - Has specimen been collected/obtained? Y Urine Leukocyte Esterase July 10, 2014 3:55pm Trace H - Has specimen been collected/obtained? Y Urine Microscopic Not Indicated August 05, 2010 8:01am Not indicated - Has specimen been collected/obtained? Y Urine Nitrite July 10, 2014 3:55pm Positive H - Has specimen been collected/obtained? Y Urine Protein July 10, 2014 3:55pm Negative - Has specimen been collected/obtained? Y Urine RBC July 10, 2014 3:55pm 1-3 /HPF - Has specimen been collected/obtained? Y Urine Renal Epithelial Cells May 04, 2010 9:20am 3-5 /HPF - Has specimen been collected/obtained? Y Urine Specific [place] July 10, 2014 3:55pm 1.025 - Has specimen been collected/obtained? Y Urine Squamous Epithelial Cells July 10, 2014 3:55pm 0-5 - Has specimen been collected/obtained? Y Urine Transitional Epithelial Cells May 04, 2010 9:20am 0-1 /HPF - Has specimen been collected/obtained? Y Urine Turbidity July 10, 2014 3:55pm Sl cloudy - Has specimen been collected/obtained? Y Urine Urobilinogen July 10, 2014 3:55pm 0.2 EU/DL - Has specimen been collected/obtained? Y Urine WBC July 10, 2014 3:55pm 50-200 /HPF H - Has specimen been collected/obtained? Y Urine WBC Clumps March 05, 2013 12:50pm Many H - Has specimen been collected/obtained? Y Urine pH July 10, 2014 3:55pm 6.0 - Has specimen been collected/ obtained? Y Venous Blood Lactate April 11, 2014 11:34am 0.9 MMOL/L N 0.6-2.2 Vitamin B12 Level April 11, 2014 11:34am 747 PG/ML N 239-931 COMMENT blood in lab White Blood Count July 10, 2014 3:50pm 5.3 T/MM3 N 4.5-11.0 Blood Culture Blood April 11, 2014 11:37am NO GROWTH AFTER 5 DAYS Gram Stain Knee, Intraoperative Site-Right May 04, 2010 1:53pm Urine Culture Urine, Straight Cath March 24, 2014 4:31pm Escherichia Coli Name: DIANA BRUNSON Unit #: [id number] : 1935 Sex: F DISCHARGE SUMMARY Admit Date: 06/21/14 Report #: [id number] General Date Date DATE: 06/23/14 TIME: 11:05 Attending Physician Arden Savage MD Admitting Physician Arden Savage MD Consulting Physician Admitting Diagnosis VOMITING, HYPONATREMIA Discharge Diagnosis RESOLVED INTRACTABLE VOMITING Laboratory Laboratory Laboratory Tests Test 06/22/14 06/23/14 14:47 04:52 Glucometer 88 mg/dL White Blood Count 4.3 T/MM3 Red Blood Count 3.59 M/MM3 Hemoglobin 10.9 GM/DL Hematocrit 33.8 % Mean Corpuscular Volume 94.2 UM3 Mean Corpuscular Hemoglobin 30.4 UUG Mean Corpuscular Hemoglobin 32.2 GM/DL Concent RDW Standard Deviation 51.8 FL Platelet Count 288 T/MM3 Mean Platelet Volume 9.1 UM3 Immature Granulocyte % (Auto) 0.5 % Neutrophils (%) (Auto) 45.0 % Lymphocytes (%) (Auto) 34.1 % Monocytes (%) (Auto) 18.3 % Eosinophils (%) (Auto) 1.4 % Basophils (%) (Auto) 0.7 % Immature Granulocyte # (Auto) 0.02 T/MM3 Neutrophils # (Auto) 1.9 T/MM3 Lymphocytes # (Auto) 1.5 T/MM3 Monocytes # (Auto) 0.8 T/MM3 Eosinophils # (Auto) 0.1 T/MM3 Basophils # (Auto) 0.0 T/MM3 Turbidity < 20 Sodium Level 134 MEQ/L Potassium Level 4.1 MEQ/L Chloride Level 101 MEQ/L Carbon Dioxide Level 28 MEQ/L Anion Gap 5 MEQ/L Blood Urea Nitrogen 9.0 MG/DL Creatinine 0.5 MG/DL Glomerular Filtration Rate 119 Calc BUN/Creatinine Ratio 18 RATIO Glucose Level 88 MG/DL Calculated Osmolality 256 MOSM/KG Calcium Level 8.2 MG/DL Total Bilirubin 0.40 MG/DL Icterus Index < 2 Aspartate Amino Transf 46 U/L (AST/SGOT) Alanine Aminotransferase 50 U/L (ALT/SGPT) Alkaline Phosphatase 67 U/L Total Protein 5.4 G/DL Albumin 2.9 G/DL Globulin 2.5 G/DL Albumin/Globulin Ratio 1.2 RATIO Chemistry Specimen Hemolysis < [address] of the abdomen showing no acute disease History of Present Illness Diana Brunson is an 78 year old woman who presented to [facility] ED on 06/20 for acute onset of N/V/D. At that time she was complaining of cramping/sharp and diffuse abdominal pain. She also was complaining of headache, which is more chronic for her. She has been feeling weak/dizzy. She denies seeing any blood in her emesis or diarrhea. She denies respiratory problems or chest pain, but the patient hasn't been a good historian. In the ED, labs were stable, though hgb was slightly low at 11.6. On chemistries, her Na was low at 129 and AST was slightly high at 42. CT scan of her abd/pel did not show obvious disease, but was limited due to respiratory motion. Radiologist did note bladder distention. She was given IVF and antiemetics, but her symptoms persisted. Dr. Savage was notified, and given her intractable N/V, she was placed into outpatient observation status. Hospital Course Patient was admitted to inpatient status under the care of Dr. Savage. She was started on IV fluids and given Zofran and Phenergan as needed for nausea and vomiting. Patient was given Dilaudid as needed for pain . Protonix 40 mg daily was given during hospitalization for GI protection. Imodium was offered for diarrhea. SCDs to bilateral lower extremities for DVT prophylaxis. Patient's laboratory studies were monitored daily her hyponatremia did improve from 129 on admission to 134 on day of discharge. Patient's intractable nausea and vomiting did improve and patient was able to eat the majority of her breakfast on day of discharge. Patient is requesting to be discharged, she is feeling much better. Did encourage patient to followup with her primary care provider Dr. Amin in one week for reevaluation. She was in the with prescription of Zofran ODT 4 mg every 6 hours when necessary nausea and vomiting. This is a general summation of the patients hospital course. Please refer to the medical record if additional detail is needed. Total discharge time- 35 minutes Problems: (1) Intractable nausea and vomiting Status: Acute Assessment & Plan: Continue IVF at 60 ml/hr Continue antiemetics Will change diet to regular diet (2) Hyponatremia Status: Acute Assessment & Plan: Improved, Na up to 136 (3) Chronic headache Status: Chronic Assessment & Plan: Increase Neurontin to 600 mg TID -- Valentina (daughter) states that at home she has been taking 300 mg TID (4) CAD (coronary artery disease) Status: Chronic (5) History of cardiac arrhythmia Status: Chronic Assessment & Plan: Hx PVC's and PACs; continue Betapace (6) Hypercholesterolemia Status: Chronic Assessment & Plan: Continue Zocor. (7) Hypothyroidism Status: Chronic Assessment & Plan: Continue Synthroid. (8) GERD (gastroesophageal reflux disease) Status: Chronic Assessment & Plan: Continue PPI. (9) Aortic stenosis Status: Chronic (10) Depression Status: Chronic Assessment & Plan: Continue Effexor. (11) Hypokalemia Status: Resolved DVT Prophylaxis: SCD'S GI Prophylaxis: Protonix Code Status Full Code Home Meds Active Scripts Ondansetron (Zofran Odt)4 Mg Tab.rapdis4 Mg PO Q6HR #30 TAB Oral disintegrating tablet Prov:JAYME CALDWELL APRN 06/23/14 Gabapentin (Neurontin)600 Mg [id number] Mg PO TID 30 Days Prov:JAYME CALDWELL APRN 06/23/14 Reported Medications Sotalol HCl (Sotalol)80 Mg Jgkhmh96 Mg PO BID 04/11/14 Hydrocodone/Acetaminophen ([place] 10-325 Tablet)1 Each Tablet1 Tab PO Q6H 04/11/14 Divalproex Sodium (Depakote)125 Mg Tablet.dr1 Tab PO BID 04/11/14 Omeprazole (Prilosec)20 Mg Capsule.dr1 Cap PO DAILY 04/11/14 Venlafaxine Hcl (Effexor)100 Mg Vgvlnx12 Mg PO BID 03/24/14 Donepezil Hcl (Aricept)10 Mg Zadmfr98 Mg PO HS 10/25/13 Meloxicam (Mobic)7.5 Mg Tablet7.5 Mg PO DAILY 10/22/12 Levothyroxine Sodium 125 Mcg Tphfef508 Mcg PO DAILY 10/22/12 Simvastatin (Zocor)20 Mg Antsru91 Mg PO HS Ref 0 05/07/10 Zolpidem Tartrate (Ambien)10 Mg Qbiwni31 Mg PO HS Ref 0 05/07/10 Discontinued Reported Medications Gabapentin (Neurontin)300 Mg Capsule1 Tab PO HS 04/11/14 Ciprofloxacin HCl (Cipro)250 Mg Tablet Daily 04/11/14 Discontinued Scripts Ondansetron (Zofran Odt)4 Mg Tab.rapdis4 Mg PO QID PRN (NAUSEA &/OR VOMITING) # 4 TAB Ref 0 Prov:TRISHA DHILLON MD 06/20/14 Discharge Disposition stable Copies To 1: ELDA AMIN MD, JULIE V APRN Jun 23, 2014 11:05 Procedures Procedure Status Date Provider(s) RPR S/N/AX/GEN/TRNK 2.5CM/< completed 05/06/14 FADY WHITE MD Encounters Encounter Location Date/Time Registered Emergency Room [facility] 07/10/14 2:48pm Discharged Inpatient [facility] 06/21/14 1:06pm Departed Emergency Room [facility] 05/06/14 9:40pm Discharged Inpatient [facility] 04/11/14 12:51pm Recent Diagnosis
--- OUTSIDE RECORDS SUMMARY | 2016-11-25 12:08 | XMS REPORT | Continuity of Care Document ---
Author Author [facility] Organization [facility] Address Unknown Phone Unavailable Support Name Relationship Address Phone ELDA TRACEY MD Caregiver [address] [place] [phone] ELIZABETH GARZA MD Caregiver [address] [place] [phone] VALENTINA PUTNAM Next Of Kin [address] [place], [place] [id number] Insurance Providers Payer Name Policy Number Subscriber Name Relationship Medicare [id number] Diana Brunson 18 Self Other A Insurance [id number] Diana Brunson 18 Self Advance Directives Directive Response Recorded Date/Time Advanced Directives Type None 11/23/14 10:17am Problems Medical Problems Problem Onset Date Status [...] infection) Unknown Active Syncopal episodes Unknown Active Syncopal episodes Unknown Active UTI (lower urinary tract infection) [...] 2-3 TIMES A WK 05/04/1011/11 Discontinued Fish Oil/[place]-3 Fatty Acids 1 Cap PO NEEDED 05/07/10 [...] Tab PO EVERY 4 HOURS 12/27/12 Discontinued Venlafaxine Hcl 75 Mg PO TWICE [...] DAY 30 Days 06/23/14 Active Cyclobenzaprine HCl 5 Mg PO TWICE A DAY MAY CAUSE DROWSINESS OR DIZZINESS 07/10/14 Active Ciprofloxacin HCl 250 Mg PO DAILY 30 Qty 07/10/14 Active Memantine HCl 5 Mg PO DAILY 10/03/14 Active Lactobacillus Combination No.4 10/03/14 Active Ferrous Sulfate Unknown Dose PO GIVE WITH BREAKFAST 10/03/14 Active Donepezil HCl 1 Tab PO BEDTIME 11/23/14 Active Levofloxacin 1 Tab-Cap PO DAILY 7 Qty 11/23/14 Active Social History Social History Problem Response Recorded Date/Time Hx Substance Use No 11/23/2014 11:20am Hx Alcohol Use No 11/23/2014 11:20am Has the pt used tobacco in the last 12 months No 06/20/2014 7:02am Tobacco Usage none 06/20/2014 11:43am Query Response Start Date Stop Date Smoking Status Unknown if ever smoked Hospital Discharge Instructions No hospital discharge instructions. Plan of Care No plan of care. Functional Status Query Response Date Recorded Physical Hygiene Self November 23, 2014 11:20am Disabilities None November 23, 2014 11:20am Devices Used None November 23, 2014 11:20am Dressing Self November 23, 2014 11:20am Ambulation Self November 23, 2014 11:20am Diet Self November 23, 2014 11:20am Mental Status Alert Oriented November 23, 2014 12:25pm Disabilities None November 23, 2014 11:20am Devices Used None November 23, 2014 11:20am Physical Hygiene Self November 23, 2014 11:20am Dressing Self November 23, 2014 11:20am Ambulation Self November 23, 2014 11:20am Diet Self November 23, 2014 11:20am Allergies, Adverse Reactions, Alerts Allergen Type Severity Reaction Status Last Updated naproxen sodium Adverse Reaction Intermediate HIGH BP, SOA Active 11/23/14 Iodinated Contrast Media - IV Dye Allergy Unknown RASH,SOA Active 11/23/14 Penicillin Allergy Severe ANAPHYLACTIC-ENDED IN ICU FOR A DAY Active 11/23 Sulfa (Sulfonamide Antibiotics) Allergy Unknown RASH,ITCHY Active 11/23/14 Morphine Allergy Unknown Active 11/23/14 Aspirin Adverse Reaction Intermediate HIGH BP, SOA Active 11/23/14 Nitrofurantoin Allergy Unknown Active 11/23/14 Fluoxetine Allergy Unknown Active 11/23/14 Metoclopramide Adverse Reaction Unknown Active 11/23/14 Immunizations Name Given Type Hx Influenza Vaccination N ALLERGIC TO VACCINE Historical Hx Pneumococcal Vaccination No Historical Hx Tetanus, Diptheria, Pertussis No Historical Hx Influenza Vaccination N ALLERGIC TO VACCINE Historical Hx Tetanus, Diptheria, Pertussis No Historical Vital Signs Acute Vital Signs Vital Response Date/Time Temperature (Fahrenheit) 98.7 deg F (96.8 - 99.1) Temperature (Calculated Celsius) 37.19375 degrees C (36.0 - 37.3) Pulse Rate (adult) 54 bpm (60 - 100) Respiratory Rate 16 breaths/min (10 - 20) O2 Sat by Pulse Oximetry 97 % (90 - 100) Blood Pressure 126/69 mm Hg Height 5 ft 5 in Weight 154 lb Body Mass Index 25.0 kg/m^2 Results [...] October 03, 2014 10:10pm 60 - Glucometer November 23, 2014 10:24am 224 mg/dL H 65-110 Glucose Level October 03, 2014 10:10pm [...] 12, 2010 9:33am LAB TEST FORM REQUEST [id number] - Lipase June 20, 2014 1:09am 138 [...] 03, 2014 10:10pm 15.9 % H 0-9.0 [id number] Natriuretic Peptide October 03, 2014 10:10pm 863 [...] Has specimen been collected/obtained? Y Urine Bacteria November 23, 2014 11:25am None seen - Has specimen been collected/obtained? Y Urine Bilirubin November 23, 2014 11:25am Negative - Has specimen been collected/obtained? Y Urine Blood November 23, 2014 11:25am Trace-intact H - Has specimen been collected/obtained? Y Urine Calcium Oxalate Crystals May 04, 2010 9:20am Moderate - Has specimen been collected/obtained? Y Urine Collection Type November 23, 2014 11:25am Cleancatch-midstream - Has specimen been collected/obtained? Y Urine Color November 23, 2014 11:25am Yellow - Has specimen been collected/obtained? Y Urine Culture Indicated July 10, 2014 3:55pm Cult reflexed &setup - Has specimen been collected/obtained? Y Urine Glucose (UA) November 23, 2014 11:25am Negative - Has specimen been collected/obtained? Y Urine Ketones November 23, 2014 11:25am Negative - Has specimen been collected/obtained? Y Urine Leukocyte Esterase November 23, 2014 11:25am 2+ H - Has specimen been collected/obtained? Y Urine Microscopic Not Indicated August 05, 2010 8:01am Not indicated - Has specimen been collected/obtained? Y Urine Nitrite November 23, 2014 11:25am Negative - Has specimen been collected/obtained? Y Urine Protein November 23, 2014 11:25am Negative - Has specimen been collected/obtained? Y Urine RBC November 23, 2014 11:25am 1-3 /HPF - Has specimen been collected/obtained? Y Urine Renal Epithelial Cells May 04, 2010 9:20am 3-5 /HPF - Has specimen been collected/obtained? Y Urine Specific [place] November 23, 2014 11:25am 1.015 - Has specimen been collected/obtained? Y Urine Squamous Epithelial Cells November 23, 2014 11:25am 5-10 - Has specimen been collected/obtained? Y Urine Transitional Epithelial Cells May 04, 2010 9:20am 0-1 /HPF - Has specimen been collected/obtained? Y Urine Turbidity November 23, 2014 11:25am Clear - Has specimen been collected/obtained? Y Urine Urobilinogen November 23, 2014 11:25am 0.2 EU/DL - Has specimen been collected/obtained? Y Urine WBC November 23, 2014 11:25am 3-5 /HPF - Has specimen been collected/obtained? Y Urine WBC Clumps March 05, 2013 12:50pm Many H - Has specimen been collected/obtained? Y Urine pH November 23, 2014 11:25am 5.5 - Has specimen been collected/ obtained? [...] Cath July 10, 2014 4:31pm Escherichia Coli Name: DIANA BRUNSON Unit #: [id number] : 1935 Sex: F Loc / Svc: ED DOS: 10/03/14 Signed Report #: [id number] DIAGNOSTIC IMAGING REPORT TYPE OF EXAM: CHEST 1 VIEW Dictated By: KOLBY KIM MD INDICATION: ITS.REASON: cardiac evaluation, altered mental status symptomatic bradycardia CHEST 1 VIEW: Comparison: April 11, 2014 Findings: The lungs are stable in appearance without new focal airspace consolidation. There is no pleural effusion or pneumothorax. The heart size, pulmonary vascularity and mediastinal contours are unchanged. IMPRESSION: Stable appearance of the chest without acute cardiopulmonary disease. . Procedures Procedure Status Date Provider(s) ROUTINE VENIPUNCTURE completed 10/03/14 CT HEAD/BRAIN W/O DYE completed 10/03/14 CHEST X-RAY 1 VIEW FRONTAL completed 10/03/14 COMPREHEN METABOLIC PANEL completed 10/03/14 ASSAY DIPROPYLACETIC ACD TOT completed 10/03/14 URINALYSIS AUTO W/O SCOPE completed 10/03/14 ASSAY OF NATRIURETIC PEPTIDE completed 10/03/14 ASSAY OF TROPONIN QUANT completed 10/03/14 COMPLETE CBC W/AUTO DIFF WBC completed 10/03/14 HYDRATION IV INFUSION INIT completed 10/03/14 EMERGENCY DEPT VISIT completed 10/03/14 [id number] ITEM OR SERVICE completed 10/03/14 [id number]"INFUSION, NORMAL SALINE SOLUTION , 1000 CC" completed 10/03/14 Encounters Encounter Location Date/Time Departed Emergency Room [facility] 11/23/14 10:12am Departed Emergency Room [facility] 10/03/14 10:07pm Recent Diagnosis
--- NOTE | 2016-11-25 12:10 | NUR ---
BOWEL MOVEMENT WHEN MOVING PT TO COMMODE CHAIR PT IS INCONTENTENT OF A LARGE AMOUNT OF URINE, HAS LIQUID BOWEL DRIPPING AND A LARGE HARD BOWEL MOVEMENT ON THE OUTSIDE OF ANUS. [place] JELLY USED AROUND THE EDGES AND PT HAS A LARGE BOWEL MOVEMENT/HARD INTO THE COMMODE, SEVERAL SMALLER STOOLS FOLLOW ON THEIR OWN. NOTED SMALL AMOUNT OF BRIGHT RED BLOOD WHICH PT STATES HAS BEEN "DRIPPING OUT WITH STOOL" FOR SEVERAL DAYS. PT IS CLEANED, ADULT DISPOSBALE UNDERWEAR APPLIED AND PT PLACED BACK ON COT. PT REPORTS GREAT RELIEF STATING HER RECTAL PAIN IS NO LONGER A 10/10, NOW IS A 5/10.
--- OUTSIDE RECORDS SUMMARY | 2016-11-25 12:10 | XMS REPORT | Continuity of Care Document ---
Author Author [facility] Organization [facility] Address Unknown Phone Unavailable Support Name Relationship Address Phone TRISHA DHILLON MD Caregiver [address] [place] [address] ELDA TRACEY MD Caregiver [address] [place] [phone] VALENTINA PUTNAM Next Of Kin [address] [place], [place] [id number] Insurance Providers Payer Name Policy Number Subscriber Name Relationship Medicare [id number] Diana Brunson 18 Self Nancy Of [place] [id number] Diana Brunson 18 Self Advance Directives Directive Response Recorded Date/Time Advanced Directives Type Living Will DPOA for Healthcare 03/24/14 2:55pm Problems Medical Problems Problem Onset Date Status INTRACTABLE N/V, HYPONATREMIA Unknown Active Hyponatremia Unknown Active Intermittent confusion Unknown Active Mild hypovolemia Unknown Active REFRACTORY NAUSEA & VOMITING Unknown Active Chronic headache Unknown Active UTI (lower urinary tract infection) Unknown Active Decreased appetite Unknown Active Abdominal pain Unknown Active Chronic headache Unknown Active Medications Medication Dose Route Sig Days/Qty Instructions Order Date Discontinued Date Status Zolpidem Tartrate 10 Mg PO BEDTIME 05/07/10 Active Ibandronate Sodium 150 Mg PO MONTHLY 06/30/09 08/18/09 Discontinued Potassium Chloride 10 Meq PO NEEDED 05/04/10 05/07/10 Discontinued Omeprazole 20 Mg PO DAILY 10/25/08 06/29/09 Discontinued Sotalol Hcl 80 Mg PO TWICE A DAY 05/07/10 Active Orlistat 120 Mg PO DAILY 06/30/09 05/03/10 [...] 2-3 TIMES A WK 05/04/1011/11 Discontinued Fish Oil/[place]-3 Fatty Acids 1 Cap PO NEEDED 05/07/10 [...] Meq PO DAILY 05/07/10 03/05/13 Discontinued Simvastatin 20 Mg PO BEDTIME 05/07/10 Active Omeprazole 40 [...] DAILY 10/22/12 Active Meloxicam 7.5 Mg PO TWICE A DAY 10/22/12 Active Cyclobenzaprine Hcl 5 Mg PO DAILY 10/22/12 Active Prednisone 10 Mg PO DAILY 10/22/12 12/26/12 Discontinued Venlafaxine Hcl 75 Mg PO TWICE A DAY 12/27/12 10/25/13 Discontinued Hydrocodone Bit/Acetaminophen 1 Tab PO EVERY 4 HOURS 12/27/12 Active Promethazine Hcl 25 Mg PO NEEDED 12/27/12 Active Donepezil Hcl 10 Mg PO BEDTIME 10/25/13 Active Venlafaxine Hcl 100 Mg PO 03/24/14 Active Gabapentin 100 Mg PO 03/24/14 Active Ondansetron 4 Mg PO FOUR TIMES DAILY PRN NAUSEA &/OR VOMITING 10 Qty Active Social History Social History Problem Response Recorded Date/Time Smoking Status Never smoker 03/24/2014 2:48pm Hx Substance Use No 03/24/2014 2:48pm Hx Alcohol Use No 03/24/2014 2:48pm Has the pt used tobacco in the last 12 months No 10/23/2013 3:45pm Query Response Start Date Stop Date Smoking Status Never smoker Hospital Discharge Instructions No hospital discharge instructions. Plan of Care No plan of care. Functional Status Query Response Date Recorded Physical Hygiene Assist March 24, 2014 2:48pm Disabilities Visual March 24, 2014 2:48pm Devices Used Dentures Glasses March 24, 2014 2:48pm Dressing Assist March 24, 2014 2:48pm Ambulation Assist March 24, 2014 2:48pm Diet Assist March 24, 2014 2:48pm Mental Status Alert March 24, 2014 5:28pm Disabilities Visual March 24, 2014 2:48pm Devices Used Dentures Glasses March 24, 2014 2:48pm Physical Hygiene Assist March 24, 2014 2:48pm Dressing Assist March 24, 2014 2:48pm Ambulation Assist March 24, 2014 2:48pm Diet Assist March 24, 2014 2:48pm Allergies, Adverse Reactions, Alerts Allergen Type Severity Reaction Status Last Updated naproxen sodium Adverse Reaction Intermediate HIGH BP, SOA Active 03/24/14 Iodinated Contrast Media - IV Dye Allergy Unknown RASH,SOA Active 03/24/14 Penicillin Allergy Severe ANAPHYLACTIC-ENDED IN ICU FOR A DAY Active 03/24 Sulfa (Sulfonamide Antibiotics) Allergy Unknown RASH,ITCHY Active 03/24/14 Morphine Allergy Unknown Active 03/24/14 Aspirin Adverse Reaction Intermediate HIGH BP, SOA Active 03/24/14 Nitrofurantoin Allergy Unknown Active 03/24/14 Fluoxetine Allergy Unknown Active 03/24/14 Metoclopramide Adverse Reaction Unknown Active 03/24/14 Immunizations Name Given Type Hx Influenza Vaccination N ALLERGIC TO VACCINE Historical Hx Pneumococcal Vaccination No Historical Hx Tetanus, Diptheria, Pertussis No Historical Hx Influenza Vaccination N ALLERGIC TO VACCINE Historical Hx Tetanus, Diptheria, Pertussis No Historical Vital Signs Acute Vital Signs Vital Response Date/Time Temperature (Fahrenheit) 97.2 deg F (96.8 - 99.1) Temperature (Calculated Celsius) 36.87136 degrees C (36.0 - 37.3) Pulse Rate (adult) 71 bpm (60 - 100) Respiratory Rate 20 breaths/min (10 - 20) O2 Sat by Pulse Oximetry 95 % (90 - 100) Blood Pressure 156/82 mm Hg Height 5 ft 5 in Weight 147 lb Body Mass Index 24.0 kg/m^2 Results Test Source Date Result Interp. Ref. Range Comments Activated Partial Thromboplast Time March 05, 2013 11:19am 31.7 sec - PTT performed at [facility] Reference [facility], [address] [place] [id number] MedicalDirector Santino Aguirre MD Alanine Aminotransferase (ALT/SGPT) March 24, 2014 3:00pm 39 U/L N 9-52 Albumin March 24, 2014 3:00pm 3.6 G/DL N 3.5-5.0 Albumin/Globulin Ratio March 24, 2014 3:00pm 1.3 RATIO N 1.1-2.2 Alkaline Phosphatase March 24, 2014 3:00pm 101 U/L N 38-126 Amylase Level March 24, 2014 3:00pm 69 U/L N 30-110 Anion Gap March 24, 2014 3:00pm 9 MEQ/L N 5-15 Aspartate Amino Transf (AST/SGOT) March 24, 2014 3:00pm 41 U/L H 14-36 B-Type Natriuretic Peptide December 12, 2007 10:50am 139 PG/ML H 15-100 BUN/Creatinine Ratio March 24, 2014 3:00pm 28 RATIO H 6-26 Band Neutrophils # March 05, 2013 11:19am 2.4 T/MM3 - Band Neutrophils % March 05, 2013 11:19am 11.0 % H 0-6 Basophils # (Auto) March 24, 2014 3:00pm 0.0 T/MM3 N 0-0.2 Basophils (%) (Auto) March 24, 2014 3:00pm 0.3 % N 0-2 Blood Urea Nitrogen March 24, 2014 3:00pm 11.0 MG/DL N 7-17 Calcium Level March 24, 2014 3:00pm 8.6 MG/DL N 8.4-10.2 Calculated Osmolality March 24, 2014 3:00pm 249 MOSM/KG L 261-280 Carbon Dioxide Level March 24, 2014 3:00pm 27 MEQ/L N 22-30 Chloride Level March 24, 2014 3:00pm 93 MEQ/L L 98-107 Cortisol AM Sample January 14, 2008 8:19am Send out - Creatinine March 24, 2014 3:00pm 0.4 MG/DL L 0.7-1.2 Eosinophils # (Auto) March 24, 2014 3:00pm 0.1 T/MM3 N 0-0.5 Eosinophils (%) (Auto) March 24, 2014 3:00pm 0.8 % N 0-4 Erythrocyte Sedimentation Rate March 05, 2013 11:19am 33 MM/HR H 0-20 Fractionated Catecholamines February 26, 2008 2:15pm Sent out - Free Thyroxine January 14, 2008 8:19am 0.67 NG/DL L 0.78-2.19 Free Triiodothyronine January 14, 2008 8:19am 2.91 PG/ML N 2.77-5.27 Globulin March 24, 2014 3:00pm 2.8 G/DL N 2.4-3.6 Glucose Level March 24, 2014 3:00pm 117 MG/DL H 65-110 Hematocrit March 24, 2014 3:00pm 37.2 % N 36-46 Hemoglobin March 24, 2014 3:00pm 12.1 GM/DL N 12-16 Lipase March 24, 2014 3:00pm 181 U/L N 23-300 Lymphocytes # (Auto) March 24, 2014 3:00pm 1.5 T/MM3 N 1-4.8 Lymphocytes # (Manual) March 05, 2013 11:19am 1.5 T/MM3 N 1-4.8 Lymphocytes % (Manual) March 05, 2013 11:19am 7.0 % L 23-45 Lymphocytes (%) (Auto) March 24, 2014 3:00pm 24.3 % N 23-45 Magnesium Level October 26, 2013 4:55am 2.1 MG/DL N 1.6-2.3 COMMENT blood in lab Mean Corpuscular Hemoglobin March 24, 2014 3:00pm 30.0 UUG N 26-34 Mean Corpuscular Hemoglobin Concent March 24, 2014 3:00pm 32.5 GM/DL N 31 -37 Mean Corpuscular Volume March 24, 2014 3:00pm 92.1 UM3 N 80-100 Mean Platelet Volume March 24, 2014 3:00pm 9.3 UM3 L 9.4-12.4 Monocytes # (Auto) March 24, 2014 3:00pm 0.8 T/MM3 N 0-0.8 Monocytes # (Manual) March 05, 2013 11:19am 1.7 T/MM3 H 0-0.8 Monocytes % (Manual) March 05, 2013 11:19am 8.0 % N 0-9.0 Monocytes (%) (Auto) March 24, 2014 3:00pm 12.9 % H 0-9.0 Neutrophils # (Auto) March 24, 2014 3:00pm 3.6 T/MM3 N 1.8-7.7 Neutrophils # (Manual) March 05, 2013 11:19am 16.0 T/MM3 H 1.8-7.7 Neutrophils % (Manual) March 05, 2013 11:19am 74.0 % H 33-66 Neutrophils (%) (Auto) March 24, 2014 3:00pm 61.2 % N 33-66 Platelet Count March 24, 2014 3:00pm 306 T/MM3 N 130-400 Potassium Level March 24, 2014 3:00pm 4.0 MEQ/L N 3.6-5 Prothromb Time International Ratio March 05, 2013 11:19am 1.20 N 0.79- 1.23 THERAPUTIC RANGE=2.00-3.00 FOR ANTI-THROMBOSIS THERAPUTIC RANGE=2.50- 3.50 FOR IMPLANTED VALVE RDW Standard Deviation March 24, 2014 3:00pm 45.0 FL N 36.9-50.2 Red Blood Count March 24, 2014 3:00pm 4.04 M/MM3 N 4.00-5.20 Sodium Level March 24, 2014 3:00pm 129 MEQ/L L 134-144 Somatomedin-C January 14, 2008 8:19am Send out - Tests Not Done August 17, 2009 11:57pm Not done - Has specimen been collected/obtained? Y Thyroid Stimulating Hormone (TSH) March 24, 2014 3:00pm 0.62 MIU/L N 0.47 -4.68 Total Bilirubin March 24, 2014 3:00pm 0.10 MG/DL L 0.20-1.30 Total Protein March 24, 2014 3:00pm 6.4 G/DL N 6.3-8.2 Troponin I March 24, 2014 3:00pm < 0.012 ng/ml 0-0.12 Urine Bacteria March 24, 2014 3:50pm 3+ H - Has specimen been collected/ obtained? Y Urine Bilirubin March 24, 2014 3:50pm Negative - Has specimen been collected/obtained? Y Urine Blood March 24, 2014 3:50pm Trace-intact H - Has specimen been collected/obtained? Y Urine Calcium Oxalate Crystals May 04, 2010 9:20am Moderate - Has specimen been collected/obtained? Y Urine Collection Type March 24, 2014 3:50pm Straight cath - Has specimen been collected/obtained? Y Urine Color March 24, 2014 3:50pm Yellow - Has specimen been collected /obtained? Y Urine Culture Indicated March 24, 2014 3:50pm Cult reflexed &setup - Has specimen been collected/obtained? Y Urine Glucose (UA) March 24, 2014 3:50pm Negative - Has specimen been collected/obtained? Y Urine Ketones March 24, 2014 3:50pm Negative - Has specimen been collected/obtained? Y Urine Leukocyte Esterase March 24, 2014 3:50pm Trace H - Has specimen been collected/obtained? Y Urine Nitrite March 24, 2014 3:50pm Positive H - Has specimen been collected/obtained? Y Urine Protein March 24, 2014 3:50pm Negative - Has specimen been collected/obtained? Y Urine RBC March 24, 2014 3:50pm 1-3 /HPF - Has specimen been collected /obtained? Y Urine Renal Epithelial Cells May 04, 2010 9:20am 3-5 /HPF - Has specimen been collected/obtained? Y Urine Specific [place] March 24, 2014 3:50pm 1.010 L - Has specimen been collected/obtained? Y Urine Squamous Epithelial Cells March 05, 2013 12:50pm 10-20 - Has specimen been collected/obtained? Y Urine Transitional Epithelial Cells May 04, 2010 9:20am 0-1 /HPF - Has specimen been collected/obtained? Y Urine Turbidity March 24, 2014 3:50pm Clear - Has specimen been collected/obtained? Y Urine Urobilinogen March 24, 2014 3:50pm 0.2 EU/DL - Has specimen been collected/obtained? Y Urine WBC March 24, 2014 3:50pm 20-30 /HPF H - Has specimen been collected/obtained? Y Urine WBC Clumps March 05, 2013 12:50pm Many H - Has specimen been collected/obtained? Y Urine pH March 24, 2014 3:50pm 6.0 - Has specimen been collected/ obtained? Y White Blood Count March 24, 2014 3:00pm 6.0 T/MM3 N 4.5-11.0 Chemistry Specimen Hemolysis March 24, 2014 3:00pm 23 N 0-25 0-25: No Hemolysis.26-70: Slight Hemolysis - can falsely elevate K and Urine Protein. 71-285: Moderate Hemolysis - can falsely elevate K, Troponin I, CA 19-9, PTH, CSF GLucose, and Urine Protein, and can falsely decrease Phenytoin. 286-999: Gross Hemolysis - can falsely elevate K, Troponin I, CA 19-9, PTH, CSF Glucose, and Urine Protine, and can falsely decrease Phenytoin. Recommend specimen recollection. Urinalysis Comment October 22, 2012 8:16pm Microscopic not ind. - Has specimen been collected/obtained? Y Glucometer October 27, 2013 10:10am 129 mg/dL H 65-110 Lab Scanned Report April 12, 2010 9:33am LAB TEST FORM REQUEST [id number] - EKG August 17, 2009 11:29pm Complete - Methicillin-Resist S.aureus DNA PCR April 12, 2010 9:18am Negative - Turbidity March 24, 2014 3:00pm < 20 0-20 Glomerular Filtration Rate Calc March 24, 2014 3:00pm 154 - Immature Granulocyte # (Auto) March 24, 2014 3:00pm 0.03 T/MM3 N 0.00- 0.03 Immature Granulocyte % (Auto) March 24, 2014 3:00pm 0.5 % N 0.0-0.5 Venous Blood Lactate March 05, 2013 12:25pm 1.3 MMOL/L N 0.6-2.2 Procalcitonin October 23, 2013 1:34pm < 0.05 NG/ML - PCT </=0.5 ng/ mL - sepsis not likely;PCT >0.5 and </=2 ng/mL - sepsis possible; PCT >2 ng/mL - sepsis likely; PCT >/=10 ng/mL - systemic inflammatory response - sepsis or septic shock highly indicated. Icterus Index March 24, 2014 3:00pm < 2 0-7 MRSA Specimen Source April 12, 2010 9:18am Nasal - Urine Microscopic Not Indicated August 05, 2010 8:01am Not indicated - Has specimen been collected/obtained? Y Blood Culture Blood October 23, 2013 1:34pm NO GROWTH AFTER 5 DAYS Urine Culture Urine, Straight Cath March 05, 2013 1:23pm Escherichia Coli Gram Stain Knee, Intraoperative Site-Right May 04, 2010 1:53pm Procedures No known history of procedures. Encounters Encounter Location Date/Time Departed Emergency Room [facility] 03/24/14 2:48pm Recent Diagnosis
--- OUTSIDE RECORDS SUMMARY | 2016-11-25 12:11 | XMS REPORT | Continuity of Care Document ---
Author Author [facility] Organization [facility] Address Unknown Phone Unavailable Support Name Relationship Address Phone FADY WHITE MD Caregiver [facility] [address] [address] Unavailable ELDA TRACEY MD Caregiver [address] [place] [address] [place] [address] [phone] VALENTINA PUTNAM Next Of Kin [address] [place], [place] [id number] Insurance Providers Payer Name Policy Number Subscriber Name Relationship Medicare [id number] Diana Brunson 16 Self [place] [id number] Diana Brunson 16 Self Chief Complaint and Reason for Visit Chief Complaint Female Urogenital Problems Reason for Visit [id number] Nausea Problems Medical Problems Problem Onset Date Status [...] Unknown Active Laceration of head Unknown Active Medications Medication Dose Route Sig [...] 2-3 TIMES A WK 05/04/1011/11 Discontinued Fish Oil/[place]-3 Fatty Acids 1 Cap PO NEEDED 05/07/10 [...] History Problem Response Recorded Date/Time Smoking Status Unknown if ever smoked 05/06/2014 10:05pm Hx Substance Use No 05/06/2014 10:05pm Hx Alcohol Use No 05/06/2014 10:05pm Has the pt used tobacco in the [...] discharge plan Patient Instructions: see patient instructions Condition at time of discharge: Good Plan of Care Discharge Date 04/12/14 3:30pm Disposition 02 [place] [facility] Condition at Discharge Stable Instructions/Education Provided Myoclonus DI for Dehydration -- Adult Prescriptions See Medications Section Referrals ELDA TRACEY MD Functional Status Query Response Date Recorded Physical Hygiene Self May 06, 2014 10:05pm Disabilities Visual May 06, 2014 10:05pm Devices Used Glasses May 06, 2014 10:05pm Dressing Self May 06, 2014 10:05pm Ambulation Self May 06, 2014 10:05pm Diet Self May 06, 2014 10:05pm Mental Status Alert Oriented May 06, 2014 10:37pm Disabilities Visual May 06, 2014 10:05pm Devices Used Glasses May 06, 2014 10:05pm Physical Hygiene Self May 06, 2014 10:05pm Dressing Self May 06, 2014 10:05pm Ambulation Self May 06, 2014 10:05pm Diet Self May 06, 2014 10:05pm Allergies, Adverse Reactions, Alerts Allergen Type Severity Reaction Status Last Updated naproxen sodium Adverse Reaction Intermediate HIGH BP, SOA Active 05/06/14 Iodinated Contrast Media - IV Dye Allergy Unknown RASH,SOA Active 05/06/14 Penicillin Allergy Severe ANAPHYLACTIC-ENDED IN ICU FOR A DAY Active 05/06 Sulfa (Sulfonamide Antibiotics) Allergy Unknown RASH,ITCHY Active 05/06/14 Morphine Allergy Unknown Active 05/06/14 Aspirin Adverse Reaction Intermediate HIGH BP, SOA Active 05/06/14 Nitrofurantoin Allergy Unknown Active 05/06/14 Fluoxetine Allergy Unknown Active 05/06/14 Metoclopramide Adverse Reaction Unknown Active 05/06/14 Immunizations Name Given Type Hx Influenza Vaccination N ALLERGIC TO VACCINE Historical Hx Pneumococcal Vaccination No Historical Hx Tetanus, Diptheria, Pertussis No Historical Hx Influenza Vaccination N ALLERGIC TO VACCINE Historical Hx Tetanus, Diptheria, Pertussis No Historical Vital Signs Acute Vital Signs Vital Response Date/Time Temperature (Fahrenheit) 97.1 deg F (96.8 - 99.1) Temperature (Calculated Celsius) 36.17393 degrees C (36.0 - 37.3) Pulse Rate (adult) 67 bpm (60 - 100) Respiratory Rate 20 breaths/min (10 - 20) O2 Sat by Pulse Oximetry 97 % (90 - 100) Blood Pressure 156/74 mm Hg Height 5 ft 4 in Weight 187 lb Body Mass Index 32.0 kg/m^2 Results Test Source Date Result Interp. [...] 12, 2014 4:12am 29 MEQ/L N 22-30 Chloride Level April 12, 2014 4:12am 100 MEQ/L N 98-107 Cortisol AM Sample January 14, 2008 8:19am Send out - Creatinine April 12, 2014 4:12am 0.6 MG/DL L 0.7-1.2 Eosinophils # (Auto) April 12, 2014 4:12am [...] 11, 2014 11:34am 2.6 G/DL N 2.4-3.6 Glucose Level April 12, 2014 4:12am 89 MG/DL N 65-110 Hematocrit April 12, 2014 4:12am 33.9 % L 36-46 Hemoglobin April 12, 2014 4:12am 10.9 GM/DL L 12-16 Lipase March 24, 2014 3:00pm 181 U/L N 23-300 Lymphocytes # (Auto) April 12, 2014 4:12am 1.5 T/MM3 N 1-4.8 Lymphocytes # (Manual) March 05, 2013 11:19am 1.5 T/MM3 N 1-4.8 Lymphocytes % (Manual) March 05, 2013 11:19am 7.0 % L 23-45 Lymphocytes (%) (Auto) April 12, 2014 4:12am 32.8 % N 23-45 Magnesium Level April 11, 2014 11:34am 2.0 MG/DL N 1.6-2.3 Mean Corpuscular Hemoglobin April 12, 2014 4:12am 30.2 UUG N 26-34 Mean Corpuscular Hemoglobin Concent April 12, 2014 4:12am 32.2 GM/DL N 31-37 Mean Corpuscular Volume April 12, 2014 4:12am 93.9 UM3 N 80-100 Mean Platelet Volume April 12, 2014 4:12am 9.0 UM3 L 9.4-12.4 Monocytes # (Auto) April 12, 2014 4:12am 0.7 T/MM3 N 0-0.8 Monocytes # (Manual) March 05, 2013 11:19am 1.7 T/MM3 H 0-0.8 Monocytes % (Manual) March 05, 2013 11:19am 8.0 % N 0-9.0 Monocytes (%) (Auto) April 12, 2014 4:12am 15.7 % H 0-9.0 Neutrophils # (Auto) April 12, 2014 4:12am [...] MG/DL L 17.6-36.0 COMMENT blood in lab Prothromb Time International Ratio April 11, 2014 [...] 11, 2014 11:34am < 0.012 ng/ml 0-0.12 Urine Bacteria March [...] Has specimen been collected/obtained? Y Urine Specific [place] April 11, 2014 10:55am 1.020 - Has [...] - Has specimen been collected/ obtained? Y Vitamin B12 Level April 11, 2014 11:34am 747 PG/ML N 239-931 COMMENT blood in lab White Blood Count April 12, 2014 4:12am 4.6 T/MM3 N 4.5-11.0 Chemistry Specimen Hemolysis April 12, 2014 4:12am [...] decrease Phenytoin. Recommend specimen recollection. Urinalysis Comment April 11, 2014 10:55am Microscopic not ind. - Has specimen been collected/obtained? Y Glucometer October 27, 2013 10:10am 129 mg/dL H 65-110 Lab Scanned Report April 12, 2010 9:33am LAB TEST FORM REQUEST [id number] - EKG August 17, 2009 11:29pm Complete - Methicillin-Resist S.aureus DNA PCR April 12, 2010 9:18am Negative - Turbidity April 12, 2014 4:12am < 20 0-20 Glomerular Filtration Rate Calc April 12, 2014 4:12am 96 - Immature Granulocyte # (Auto) April 12, 2014 4:12am 0.04 T/MM3 H 0.00- 0.03 Immature Granulocyte % (Auto) April 12, 2014 4:12am 0.9 % H 0.0-0.5 Venous Blood Lactate April 11, 2014 11:34am 0.9 MMOL/L N 0.6-2.2 Procalcitonin April 11, 2014 11:34am < 0.05 NG/ML - PCT </=0.5 ng/ mL - sepsis not likely;PCT >0.5 and </=2 ng/mL - sepsis possible; PCT >2 ng/mL - sepsis likely; PCT >/=10 ng/mL - systemic inflammatory response - sepsis or septic shock highly indicated. Icterus Index April 12, 2014 4:12am < 2 0-7 MRSA Specimen Source April 12, 2010 9:18am Nasal - FB-Szb-F-Type Natriuretic Peptide April 11, 2014 11:34am 715 PG/ML H 0- 175 Rule in cut points: <50 years old=450; 50-75 years old=900; >75 years old=1800; When utilizing ProBNP rule-in cut points, adjustment for impaired renal function is typically not required. Urine Microscopic Not Indicated August 05, 2010 8:01am Not indicated - Has specimen been collected/obtained? Y Blood Culture Blood April 11, 2014 11:37am NO GROWTH AFTER 5 DAYS Urine Culture Urine, Straight Cath March 24, 2014 4:31pm Escherichia Coli Gram Stain Knee, Intraoperative Site-Right May 04, 2010 1:53pm Name: DIANA BRUNSON Unit #: [id number] : 1935 Sex: F Loc / Svc: ED DOS: 04/11/14 Signed Report #: [id number] DIAGNOSTIC IMAGING REPORT TYPE OF EXAM: CT [...] PUSH completed 03/24/14 Encounters Encounter Location Date/Time Departed Emergency Room [facility] 05/06/14 9:40pm Discharged Inpatient [facility] 04/11/14 12:51pm Departed Emergency Room [facility] 03/24/14 2:48pm Recent Diagnosis
--- NOTE | 2016-11-25 12:20 | NUR ---
PROVIDER DR. OLSON IN ROOM WITH PT.
--- OUTSIDE RECORDS SUMMARY | 2016-11-25 12:20 | XMS REPORT | Continuity of Care Document ---
Author Author [facility] Organization [facility] Address Unknown Phone Unavailable Allergies Medications Problems Procedures Results Encounters ACCT No. Visit Date/Time Discharge Status Pt. Type Provider Facility Loc./Unit Complaint [id number] 11/21/2013 12:44:00 11/21/2013 23 :59:59 CLS Outpatient [id number] 11/07/2013 15:10:00 11/07/2013 23 :59:59 CLS Outpatient [id number] 11/05/2013 14:25:00 11/05/2013 23 :59:59 CLS Outpatient [id number] 10/17/2013 14:13:00 10/17/2013 23 :59:59 CLS Outpatient [id number] 10/15/2013 14:49:00 10/15/2013 23 :59:59 CLS Outpatient [id number] 09/24/2013 15:27:00 09/24/2013 23 :59:59 CLS Outpatient [id number] 09/09/2013 14:29:00 09/09/2013 23 :59:59 CLS Outpatient
--- OUTSIDE RECORDS SUMMARY | 2016-11-25 12:21 | XMS REPORT | Continuity of Care Document ---
Author Author [facility] Organization [facility] Address Unknown Phone Unavailable Support Name Relationship Address Phone VALENTINA PUTNAM Next Of Kin [address] [place] [address] Unavailable Insurance Providers Payer Name Policy Number Subscriber Name Relationship Medicare [id number] Diana Brunson 16 Self [place] [employer] [place] [id number] Diana Brunson 16 Self Problems No Known [...] Prednisone 10 Mg PO DAILY Hydrocodone Bit/Acetaminophen ([place] 7.5/325 Tablet) 1 Tab PO Q4HR Venlafaxine [...] 2010 9:20am 3-5 /HPF - Urine Specific [place] March 05, 2013 12:50pm 1.015 - Urine [...] indicated - Name: DIANA BRUNSON Unit #: [id number]
: 1935 Sex: F
Loc / Svc: MED Admit Date: 03/05/13
Signed Discharge Date:
DISCHARGE SUMMARY Report #: [id number]

General
Date
Date
DATE: 03/09/13
TIME: 13:07
[...] multiple neurologists, last seeing Dr. Price in [facility]. She is
on Ultram and Lortab [...] 10 Mg PO DAILY
12/27/12
Hydrocodone Bit/Acetaminophen ([place] 7.5/325 Tablet) 1 Tab Tablet 1 Tab [...] 13:14 Procedures Procedure Code Date DIAGNOSTIC COLONOSCOPY 97587 06/30/09 TOTAL KNEE REPLACEMENT 81.54 05/04/10 PACKED CELL TRANSFUSION 99.04 05/07/10 AMBULAT & GAIT TRAINING 93.22 05/07/10 OCCUPATIONAL THERAPY 93.83 05/07/10 THER/PROPH/DIAG INJ IV PUSH 25437 07/30/10 TX/PRO/DX INJ NEW DRUG ADDON 76706 07/30/10 REMOVAL OF THYROID 58363 12/10/10 CONTROL OF NOSEBLEED 83953 01/02/11 THER/PROPH/DIAG INJ IV PUSH 73296 01/02/11 HYDRATE IV INFUSION ADD-ON 10532 01/02/11 CONTROL OF [place]SEBLE[place] 66381 10/22/12 Blood Culture 03/05/13 Gram Stain 05/04/10 Urine Culture 03/05/13 Encounters Encounter Location Date/Time Discharged Inpatient [facility] 03/05/13 1:24pm Departed Emergency Room [facility] 10/22/12 7:19pm
--- OUTSIDE RECORDS SUMMARY | 2016-11-25 12:22 | XMS REPORT | Continuity of Care Document ---
Author Author [facility] Organization LIVE Address Unknown Phone Unavailable Support Name Relationship Address Phone ELDA TRACEY MD Caregiver [address] [place] [phone] ELIZABETH GARZA MD Caregiver [address] [place] [phone] VALENTINA PUTNAM Next Of Kin [address] [place], [place] [id number] Insurance Providers Payer Name Policy Number Subscriber Name Relationship Medicare [id number] Diana Brunson 16 Self Other A Insurance [id number] Diana Brunson 16 Self Advance Directives Directive [...] 2-3 TIMES A WK 05/04/1011/11 Discontinued Fish Oil/[place]-3 Fatty Acids 1 Cap PO NEEDED 05/07/10 [...] F (96.8 - 99.1) Temperature (Calculated Celsius) 37.95298 degrees C (36.0 - 37.3) Pulse Rate [...] 12, 2010 9:33am LAB TEST FORM REQUEST [id number] - Lipase June 20, 2014 1:09am 138 [...] 03, 2014 10:10pm 15.9 % H 0-9.0 MF-Nci-Z-Type Natriuretic Peptide October 03, 2014 10:10pm 863 [...] Has specimen been collected/obtained? Y Urine Specific [place] November 23, 2014 11:25am 1.015 - Has [...] Escherichia Coli Name: DIANA BRUNSON Unit #: [id number] : 1935 Sex: F Loc / Svc: ED DOS: 10/03/14 Signed Report #: [id number] DIAGNOSTIC IMAGING REPORT TYPE OF EXAM: CHEST [...] completed 10/03/14 EMERGENCY DEPT VISIT completed 10/03/14 [id number] ITEM OR SERVICE completed 10/03/14 [id number]"INFUSION, NORMAL SALINE SOLUTION , 1000 CC" completed 10/03/14 Encounters Encounter Location Date/Time Departed Emergency Room [facility] 11/23/14 10:12am Departed Emergency Room [facility] 10/03/14 10:07pm Recent Diagnosis
--- OUTSIDE RECORDS SUMMARY | 2016-11-25 12:22 | XMS REPORT | Continuity of Care Document ---
Author Author [facility] Organization [facility] Address Unknown Phone Unavailable Support Name Relationship Address Phone ELDA TRACEY MD Caregiver [address] [place] [address] [place] [phone] STEPHANE WARNER MD Caregiver [address] [place] [phone] VALENTINA PUTNAM Next Of Kin [address] [place], [place] [id number] Insurance Providers Payer Name Policy Number Subscriber Name Relationship Medicare [id number] Diana Brunson 16 Self Other A Insurance [id number] Diana Brunson 16 Self Advance Directives Directive [...] 2-3 TIMES A WK 05/04/1011/11 Discontinued Fish Oil/[place]-3 Fatty Acids 1 Cap PO NEEDED 05/07/10 [...] F (96.8 - 99.1) Temperature (Calculated Celsius) 36.27492 degrees C (36.0 - 37.3) Pulse Rate [...] 12, 2010 9:33am LAB TEST FORM REQUEST [id number] - Lipase June 20, 2014 1:09am 138 [...] 03, 2014 10:10pm 15.9 % H 0-9.0 AR-Yfs-Q-Type Natriuretic Peptide October 03, 2014 10:10pm 863 [...] Has specimen been collected/obtained? Y Urine Specific [place] October 04, 2014 12:05am 1.025 - Has [...] completed 07/10/14 EMERGENCY DEPT VISIT completed 07/10/14 [id number] ITEM OR SERVICE completed 07/10/14 [id number]"INJECTION, HYDROMORPHONE, UP TO 4 MG" completed 07/10/14 [id number]"INFUSION, NORMAL SALINE SOLUTION , 1000 CC" completed 07/10/14 Encounters Encounter Location Date/Time Departed Emergency Room [facility] 10/03/14 10:07pm Departed Emergency Room [facility] 07/10/14 2:48pm Recent Diagnosis
--- OUTSIDE RECORDS SUMMARY | 2016-11-25 12:23 | XMS REPORT | Continuity of Care Document ---
Author Author [facility] Organization [facility] Address Unknown Phone Unavailable Support Name Relationship Address Phone ELDA AMIN MD Caregiver [address] [place] [phone] ELIZABETH GARZA MD Caregiver [address] [place] [phone] VALENTINA PUTNAM Next Of Kin [address] [place], [place] [address] Insurance Providers Payer Name Policy Number Subscriber Name Relationship Medicare [id number] Diana Brunson 16 Self Other A Insurance [id number] Diana Brunson 16 Self Advance Directives Directive Response Recorded Date/Time Advanced Directives Type Living Will DPOA for Healthcare 07/10/14 3:19pm Chief Complaint and Reason for Visit Chief Complaint Nausea,Vomiting,Diarrhea Reason for Visit Gastroenteritis [id number] Abdominal pain Problems Medical Problems Problem Onset [...] 2-3 TIMES A WK 05/04/1011/11 Discontinued Fish Oil/[place]-3 Fatty Acids 1 Cap PO NEEDED 05/07/10 [...] having problems relating to your bowels at [phone]. 2. Please call Dr[address] Alicea or return to the emergency room if you develope fevers, chills, chest pain, shortness of breath, abdominal pain, dizziness with standing, passing out. Condition at time of discharge: Good Good Good General Information: n/a Condition at time of discharge: Fair Plan of Care Discharge Date 06/23/14 4:05pm Disposition 01 DISCHARGED HOME, SELF-CARE Condition at Discharge Improved Instructions/Education Provided Gordon Diet Nausea and Vomiting-Adult Prescriptions See Medications [...] F (96.8 - 99.1) Temperature (Calculated Celsius) 36.29087 degrees C (36.0 - 37.3) Pulse Rate [...] 12, 2010 9:33am LAB TEST FORM REQUEST [id number] - Lipase June 20, 2014 1:09am 138 [...] 10, 2014 3:50pm 12.3 % H 0-9.0 JA-Upd-V-Type Natriuretic Peptide April 11, 2014 11:34am 715 [...] Has specimen been collected/obtained? Y Urine Specific [place] July 10, 2014 3:55pm 1.025 - Has [...] Escherichia Coli Name: DIANA BRUNSON Unit #: [id number] : 1935 Sex: F DISCHARGE SUMMARY Admit Date: 06/21/14 Report #: [id number] General Date Date DATE: 06/23/14 TIME: 11:05 [...] 78 year old woman who presented to [facility] ED on 06/20 for acute onset of [...] Prov:JAYME CALDWELL APRN 06/23/14 Gabapentin (Neurontin)600 Mg Flcrqt593 Mg PO TID 30 Days Prov:JAYME CALDWELL APRN 06/23/14 Reported Medications Sotalol HCl (Sotalol)80 Mg Pxalvu33 Mg PO BID 04/11/14 Hydrocodone/Acetaminophen ([place] 10-325 Tablet)1 Each Tablet1 Tab PO Q6H 04/11/14 Divalproex Sodium (Depakote)125 Mg Tablet.dr1 Tab PO BID 04/11/14 Omeprazole (Prilosec)20 Mg Capsule.dr1 Cap PO DAILY 04/11/14 Venlafaxine Hcl (Effexor)100 Mg Iiphwg52 Mg PO BID 03/24/14 Donepezil Hcl (Aricept)10 Mg Hsuwhz81 Mg PO HS 10/25/13 Meloxicam (Mobic)7.5 Mg Tablet7.5 Mg PO DAILY 10/22/12 Levothyroxine Sodium 125 Mcg Agxaqw529 Mcg PO DAILY 10/22/12 Simvastatin (Zocor)20 Mg Bnpodl84 Mg PO HS Ref 0 05/07/10 Zolpidem Tartrate (Ambien)10 Mg Aggkmn77 Mg PO HS Ref 0 05/07/10 Discontinued [...] Encounters Encounter Location Date/Time Registered Emergency Room [facility] 07/10/14 2:48pm Discharged Inpatient [facility] 06/21/14 1:06pm Departed Emergency Room [facility] 05/06/14 9:40pm Discharged Inpatient [facility] 04/11/14 12:51pm Recent Diagnosis
--- OUTSIDE RECORDS SUMMARY | 2016-11-25 12:23 | XMS REPORT | Continuity of Care Document ---
Author Author [facility] Organization [facility] Address Unknown Phone Unavailable Support Name Relationship Address Phone TANNER HUANG MD Caregiver [address] [place] [address] [place] [address] ELDA TRACEY MD Caregiver [address] [place] [address] [place] [address] [phone] STEPHANE WARNER MD Caregiver [address] [place] [address] [place] [address] VALENTINA PUTNAM Next Of Kin [address] [place], [place] [id number] Insurance Providers Payer Name Policy Number Subscriber Name Relationship Medicare [id number] Diana Brunson 16 Self [place] [id number] Diana Brunson 16 Self Advance Directives Directive [...] 2-3 TIMES A WK 05/04/1011/11 Discontinued Fish Oil/[place]-3 Fatty Acids 1 Cap PO NEEDED 05/07/10 [...] F (96.8 - 99.1) Temperature (Calculated Celsius) 36.76059 degrees C (36.0 - 37.3) Temperature Source [...] 12, 2010 9:33am LAB TEST FORM REQUEST [id number] - Lipase March 24, 2014 3:00pm 181 [...] 12, 2014 4:12am 15.7 % H 0-9.0 MG-Wyy-L-Type Natriuretic Peptide April 11, 2014 11:34am 715 [...] Has specimen been collected/obtained? Y Urine Specific [place] April 11, 2014 10:55am 1.020 - Has [...] Escherichia Coli Name: DIANA BRUNSON Unit #: [id number] : 1935 Sex: F Loc / Svc: ED DOS: 04/11/14 Signed Report #: [id number] DIAGNOSTIC IMAGING REPORT TYPE OF EXAM: CT [...] 03/24/14 Encounters Encounter Location Date/Time Discharged Inpatient [facility] 04/11/14 12:51pm Departed Emergency Room [facility] 03/24/14 2:48pm Recent Diagnosis Gait instability Nausea Gait instability CAD (coronary artery disease) Hypercholesterolemia Hypothyroidism GERD (gastroesophageal reflux disease) History of kidney stones Myoclonic jerking
--- OUTSIDE RECORDS SUMMARY | 2016-11-25 12:24 | XMS REPORT | Continuity of Care Document ---
Author Author [facility] Organization [facility] Address Unknown Phone Unavailable Support Name Relationship Address Phone TRISHA DHILLON MD Caregiver [address] [place] [address] ELDA TRACEY MD Caregiver [address] [place] [phone] VALENTINA PUTNAM Next Of Kin [address] [place], [place] [id number] Insurance Providers Payer Name Policy Number Subscriber Name Relationship Medicare [id number] Diana Brunson 16 Self [place] [id number] Diana Brunson 16 Self Advance Directives Directive [...] 2-3 TIMES A WK 05/04/1011/11 Discontinued Fish Oil/[place]-3 Fatty Acids 1 Cap PO NEEDED 05/07/10 [...] F (96.8 - 99.1) Temperature (Calculated Celsius) 36.39718 degrees C (36.0 - 37.3) Pulse Rate [...] 11:19am 31.7 sec - PTT performed at [facility], [address] [place] [id number] MedicalDirector Santino Aguirre MD Alanine Aminotransferase (ALT/SGPT) [...] Has specimen been collected/obtained? Y Urine Specific [place] March 24, 2014 3:50pm 1.010 L - [...] 12, 2010 9:33am LAB TEST FORM REQUEST [id number] - EKG August 17, 2009 11:29pm Complete [...] Encounters Encounter Location Date/Time Departed Emergency Room [facility] 03/24/14 2:48pm Recent Diagnosis
--- OUTSIDE RECORDS SUMMARY | 2016-11-25 12:26 | XMS REPORT | Continuity of Care Document ---
Author Author [facility] Organization [facility] Address Unknown Phone Unavailable Support Name Relationship Address Phone FADY WHITE MD Caregiver [facility] [address] [place] [address] Unavailable ELDA TRACEY MD Caregiver [address] [place] [address] [place] [address] [phone] VALENTINA PUTNAM Next Of Kin [address] [place], [place] [id number] Insurance Providers Payer Name Policy Number Subscriber Name Relationship Medicare [id number] Diana Brunson 16 Self [place] [id number] Diana Brunson 16 Self Chief Complaint and Reason for Visit Chief Complaint Female Urogenital Problems Reason for Visit [id number] Nausea Problems Medical Problems Problem Onset Date [...] 2-3 TIMES A WK 05/04/1011/11 Discontinued Fish Oil/[place]-3 Fatty Acids 1 Cap PO NEEDED 05/07/10 [...] Date 04/12/14 3:30pm Disposition 02 TO OBS [facility] Condition at Discharge Stable Instructions/Education Provided Myoclonus [...] F (96.8 - 99.1) Temperature (Calculated Celsius) 36.01298 degrees C (36.0 - 37.3) Pulse Rate [...] Has specimen been collected/obtained? Y Urine Specific [place] April 11, 2014 10:55am 1.020 - Has [...] 12, 2010 9:33am LAB TEST FORM REQUEST [id number] - EKG August 17, 2009 11:29pm Complete [...] Source April 12, 2010 9:18am Nasal - YR-Yyh-O-Type Natriuretic Peptide April 11, 2014 11:34am 715 [...] 2010 1:53pm Name: DIANA BRUNSON Unit #: [id number] : 1935 Sex: F Loc / Svc: ED DOS: 04/11/14 Signed Report #: [id number] DIAGNOSTIC IMAGING REPORT TYPE OF EXAM: CT [...] Encounters Encounter Location Date/Time Departed Emergency Room [facility] 05/06/14 9:40pm Discharged Inpatient [facility] 04/11/14 12:51pm Departed Emergency Room [facility] 03/24/14 2:48pm Recent Diagnosis
--- NOTE | 2016-11-25 12:36 | ERPDOC ---
Departure Disposition Decision Date: Nov 25, 2016 Disposition Decision Time: 14:35 Disposition: 01 DISCHARGED HOME, SELF-CARE Impression Impression Impression: Primary Impression: Constipation Constipation type: drug induced constipation Qualified Codes: K59.03 - Drug induced constipation Severity: Mild Condition: Improved Seen By: Physician only Referrals: ELDA TRACEY MD (Family) 2 Days INGRID NASSAR MD 2 Days Patient Instructions: Constipation (ED) Problems/Meds/Labs Reviewed?: Yes Medications reviewed and manag: Yes Follow up care ordered?: Yes Mental Status: Alert, Oriented HPI - Abdominal Pain General Chief Complaint: Abdominal Pain Stated Complaint: BACKED BOWL SYSTEM Time Seen by Provider: 12:13 Source: patient, family History/Exam Limitations: no limitations HPI - Abdominal Pain Initial Comments 81-year-old female presents to the emergency department with a chief complaint of constipation and not having a bowel movement in approximately one week. Patient notes generalized lower abdominal discomfort with her symptoms. Pain is moderate in nature. Pain is dull. There is no radiation of discomfort. Patient does note that she takes oral narcotic pain medication on a daily basis which is probably contributing to her constipation. Patient was at home when her symptoms began. Symptoms have been persistent in nature since onset. She does not note anything that makes her symptoms any better or any worse. No other complaints or associated symptoms. She has not tried any intervention for her symptoms prior to arrival to the ED. Allergies: Coded Allergies: Penicillins (Verified Allergy, Severe, ANAPHYLACTIC-ENDED IN ICU FOR A DAY , 11/25/16) Iodinated Contrast Media - Oral and (Verified Allergy, Unknown, RASH,SOA, 11/25/16) Sulfa (Sulfonamide Antibiotics) (Verified Allergy, Unknown, RASH,ITCHY, ) fluoxetine (Verified Allergy, Unknown, 11/25/16) morphine (Verified Allergy, Unknown, 11/25/16) nitrofurantoin (Verified Allergy, Unknown, 11/25/16) aspirin (Verified Adverse Reaction, Intermediate, HIGH BP, SOA, 11/25/16) naproxen sodium (Verified Adverse Reaction, Intermediate, HIGH BP, SOA, ) metoclopramide (Verified Adverse Reaction, Unknown, 11/25/16) PT HAD REGLAN PREOPERATIVELY AND A REACTION THAT SHE WAS UNABLE TO DESCRIBE Past History Patient Surgical History Cholecystectomy Heart catheterization Foot surgery Knee surgery, right TKA Past Medical History Metabolic: hypercholesterolemia, hypertension, hypothyroidism Cardiac: CAD GI: GERD, constipation Female: UTI, kidney stones Neurological: headaches Musculoskeletal: neck pain Psychological: depression Surgical History General: gallbladder Cardiac: cardiac cath Joint: foot, knee Family History Family PMH: FOUND: cancer Vaccines Hx Influenza Vaccination: No (unsure) Hx Pneumococcal Vaccination: No (unsure) Hx Tetanus, Diptheria, Pertuss: No Social History Smoking Status: Never smoker Substance Use Type: does not use Alcohol Intake: none Marital Status: Sexuality: male partner Housing: house Current Occupational Status: retired Review of Systems Constitutional Constitutional: DENIES: chills, fever Eyes General: DENIES: erythema, exudate Lids/Accessories: DENIES: erythema, swelling Vision: DENIES: acuity, blurring ENMT Ears: DENIES: drainage, erythema Hearing: DENIES: hearing loss Balance: DENIES: ataxia, falling to one side Sinuses: DENIES: congestion, pain Nose: DENIES: nosebleeds, pain Mouth/Throat: DENIES: painful swallowing, sore throat Teeth: DENIES: pain Jaw: DENIES: pain Cardiovascular Cardiac: DENIES: chest pain, dyspnea on exertion Rhythm/Rate: DENIES: irregular beat, palpitations Vascular: DENIES: pedal edema, unilateral swelling Pulmonary Respiratory: DENIES: cough, dyspnea, pleuritic chest pain, sputum GI Upper Abdomen: DENIES: nausea, pain, vomiting Lower Abdomen: constipation, pain, DENIES: blood in stool, diarrhea General: DENIES: dysuria, pain Musculoskeletal General: DENIES: pain, tenderness Integumentary Skin: DENIES: itching, rash Neurological General: DENIES: headache, numbness, weakness Psychiatric Psychiatric: DENIES: emotional instability, suicidal ideation/attempt Endocrine Endocrine: DENIES: polydipsia, polyphagia Hematologic/Lymphatic Hematologic/Lymphatic: DENIES: frequent nosebleeds, lymphadenopathy Allergic/Immunological Allergic/Immunoligical: DENIES: allergic reactions, hives Physical Exam General General Nourishment: well nourished, well developed, appears stated age, no acute distress, adult General Body Habitus: well groomed Vitals and Pain First Documented Vital Signs Date Time Temp Pulse Resp B/P Pulse Ox O2 Delivery O2 Flow Rate FiO2 11/25/16 12:05 98.7 54 16 129/70 97 Room Air Weight: Kilograms: 103.000 Height (feet): 5 Height (inches): 5.00 Triage Pain Scale: RN VS reviewed by Provider: Yes Normal Exams: Head: Normocephalic w/o trauma Eyes: Pupils are PERRLA w/ EOMI, No scleral icterus, irritation, or foreign bodies noted ENMT: No facial trauma, nasal exudates, pharyngeal erythema, or exudates are noted Dental: No fractured, loose, or missing teeth noted Neck: Full range of motion, without adenopathy, JVD, bruits or thyromegaly Chest/Resp: Clear all santiago, with good airflow, and symmetry bilaterally CV: Regular rate and rhythm, without murmur or gallop, Pulses 2+ all extremities, capillary refill, <2 seconds all ext., no pedal edema noted Abdomen: Bowel sounds positive, soft, non-tender, non-distended, no hepatosplenomegaly, masses or bruits noted Lymphatic: No lymphadenopathy, or lymphedema noted Musculoskeletal: No tenderness, or deformity noted, good range of motion, all extremities Integumentary: No rashes, hives, or bruising noted, hair and nails, without abnormality Neurologic: Patient is alert, and oriented, cranial nerves, motor/sensory/ cerebellar, exams w/o gross deficits, to observation Psychiatric: Patient exhibits, appropriate attention, emotion and affect Differential Diagnoses Considering: Constipation, Hernia, IBS, Ileus Progress Results/Orders Orders Procedure Category Date Status Time Cbc W/Auto LAB 11/25/16 Complete Diff-Reflex Manual Cmp - Comprehensive LAB 11/25/16 Complete Metabolic Lipase LAB 11/25/16 Complete Ua, Dip Wreflex LAB 11/25/16 Complete Microsc & Movie Producer 12:24 Catheterize For Ua JACKIE 11/25/16 Complete 12:24 EKG EKG 11/25/[address] Abd/Pelvis W/O CT 11/25/16 Resulted Contrast 12:24 Iv Lock (Ed Only) EDM 11/25/16 Transmitted 12:27 Lab Results Laboratory Tests Test 11/25/16 12:50 11/25/16 13:49 White Blood Count 5.8T/MM3 Red Blood Count 3.78M/MM3 Hemoglobin 12.1GM/DL Hematocrit 37.0% Mean Corpuscular Volume 97.9UM3 Mean Corpuscular Hemoglobin 32.0UUG Mean Corpuscular Hemoglobin Concent 32.7GM/DL RDW Standard Deviation 48.0FL Platelet Count 212T/MM3 Mean Platelet Volume 9.8UM3 Immature Granulocyte % (Auto) 0.3% Neutrophils (%) (Auto) 70.0% Lymphocytes (%) (Auto) 18.2% Monocytes (%) (Auto) 10.8% Eosinophils (%) (Auto) 0.5% Basophils (%) (Auto) 0.2% Absolute Immature Granulocyte (auto 0.02T/MM3 Absolute Neutrophils (auto) 4.0T/MM3 Absolute Lymphocytes (auto) 1.1T/MM3 Absolute Monocytes (auto) 0.6T/MM3 Absolute Eosinophils (auto) 0.0T/MM3 Absolute Basophils (auto) 0.0T/MM3 Turbidity < 20 Sodium Level 135MEQ/L Potassium Level 3.9MEQ/L Chloride Level 98MEQ/L Carbon Dioxide Level 31MEQ/L Anion Gap 6MEQ/L Blood Urea Nitrogen 12.0MG/DL Creatinine 0.7MG/DL Glomerular Filtration Rate Calc 80 BUN/Creatinine Ratio 17RATIO Glucose Level 96MG/DL Calculated Osmolality 260MOSM/KG Calcium Level 8.6MG/DL Total Bilirubin 0.60MG/DL Icterus Index < 2 Aspartate Amino Transf (AST/SGOT) 26U/L Alanine Aminotransferase (ALT/SGPT) 26U/L Alkaline Phosphatase 60U/L Total Protein 6.7G/DL Albumin 3.9G/DL Globulin 2.8G/DL Albumin/Globulin Ratio 1.4RATIO Lipase 66U/L Chemistry Specimen Hemolysis < 15 Urine Collection Type Straight cath Urine Color Yellow Urine Turbidity Clear Urine pH 7.0 Urine Specific [place] <=1.005 Urine Protein Negative Urine Glucose (UA) Negative Urine Ketones Negative Urine Blood Negative Urine Nitrite Negative Urine Bilirubin Negative Urine Urobilinogen 0.2EU/DL Urine Leukocyte Esterase Negative Urinalysis Comment Microscopic not ind. Progress Progress Labs/imaging were discussed in detail with the patient and questions are answered. Patient has a large bowel movement in the emergency department which improved her symptoms markedly. Patient is given a soapsuds enema and produces another bowel movement in the ED. Patient is feeling much better and is ready to be discharged home. Patient is discharged home in improved condition. She is to follow up as instructed. Patient is to return to the emergency Department if her condition worsens or changes in any manner. Patient is in agreement with the current plan of management. Patient is discussed with Dr. Nassar of general surgery and follow-up care is established for the patient in regards to the colonoscopy. Patient verbalizes agreement and understanding of the need for colonoscopy. EKG EKG : Rate: <60 Rhythm: sinus QRS: normal Intervals: [address]/T: non-specific changes Interpreted by: signing physician CT CT : CT: Abd/Pelvis no contrast Interpretation: Reviewed Written Report (larger stool [place]. otherwise no acute process. Follow-up colonoscopy recommended.) TOMMY OLSON DO Nov 25, 2016 12:36
--- NOTE | 2016-11-25 12:44 | NUR ---
EKG EKG TAKEN AND GIVEN TO DR OLSON
--- NOTE | 2016-11-25 12:58 | NUR ---
RADIOLOGY PT TO RADIOLOGY PER CART
--- NOTE | 2016-11-25 12:58 | NUR ---
CT PT TO CT PER COT.
[2016-11-25] MEDS ORDERED: APIX5TAB PO (13:05)
--- NOTE | 2016-11-25 13:07 | NUR ---
CT PT RETURNED.
--- NOTE | 2016-11-25 13:08 | NUR ---
REPORT RECEIVED FROM ANABELLA MAC. CARE ASSUMED.
[2016-11-25 13:14] LABS: BASOPHILS % (AUTO) 0.2 % (0-2); EOSINOPHILS % (AUTO) 0.5 % (0-4); HGB - HEMOGLOBIN 12.1 GM/DL (12-16); IMMATURE GRANULOCYTE # (AUTO) 0.02 T/MM3 (0.00-0.03); IMMATURE GRANULOCYTE % (AUTO) 0.3 % (0.0-0.5); LYMPHOCYTES # (AUTO) 1.1 T/MM3 (1-4.8); LYMPHOCYTES % (AUTO) 18.2 % (23-45); MEAN CORPUSCULAR HGB CONC(MCHC 32.7 GM/DL (31-37); MEAN CORPUSCULAR VOLUME 97.9 UM3 (80-100); MEAN PLATELET VOLUME 9.8 UM3 (9.4-12.4); MONOCYTES # (AUTO) 0.6 T/MM3 (0-0.8); MONOCYTES % (AUTO) 10.8 % (0-9.0); RED BLOOD COUNT 3.78 M/MM3 (4.00-5.20); WBC - WHITE BLOOD COUNT 5.8 T/MM3 (4.5-11.0)
[2016-11-25 13:26] LABS: ALBUMIN 3.9 G/DL (3.5-5.0); ALBUMIN/GLOBULIN RATIO 1.4 RATIO (1.1-2.2); ALKALINE PHOSPHATASE 60 U/L (38-126); ALT (SGPT) 26 U/L (9-52); ANION GAP 6 MEQ/L (5-15); AST (SGOT) 26 U/L (14-36); BUN/CREATININE RATIO 17 RATIO (6-26); CALCIUM 8.6 MG/DL (8.4-10.2); CHLORIDE 98 MEQ/L (98-107); CO2 - CARBON DIOXIDE 31 MEQ/L (22-30); CREATININE 0.7 MG/DL (0.7-1.2); GLOMERULAR FILTRATION RATE 80; GLUCOSE 96 MG/DL (65-110); POTASSIUM 3.9 MEQ/L (3.6-5); SODIUM 135 MEQ/L (134-144); TOTAL PROTEIN 6.7 G/DL (6.3-8.2)
--- NOTE | 2016-11-25 13:35 | DI ---
Indication: ITS.REASON: constipation, pain PROCEDURE: CT ABD/PELVIS W/O CONTRAST: Encounter: Initial Comparison: CT abdomen and pelvis dated June 20, 2014 Technique: Axial CT images were performed through the abdomen and pelvis without intravenous contrast. Coronal and sagittal two-dimensional reformats. Automated Exposure Control and Iterative Reconstruction dose reducing techniques were utilized. Findings: The lung bases are grossly clear. The unenhanced contours of the liver are stable. Postoperative changes in the proximal stomach and GE junction region. The gallbladder is not seen. The spleen, fatty replaced pancreas and right adrenal gland are grossly normal. Left adrenal gland is partially obscured by metallic artifact. Kidneys are grossly stable. No obstructing renal or ureteral stone disease appreciated. Bladder is normal. Uterus is unremarkable. Small amount of free pelvic fluid. Large amount of stool in the colon. There is an area of irregular narrowing in the mid sigmoid colon best seen on axial image #61 involving a segment of approximately 3 cm in length. Surgical anastomosis seen in the bowel at a couple different locations. No evidence of acute small bowel obstruction. Bone windows show degenerative change in the spine with prior treated compression fracture of T11. There is bilateral L5 spondylolysis with grade 1 spondylolisthesis of L5 on S1. Impression: Large colonic stool burden with suggestion of a sigmoid colonic stricture which could be benign or malignant. Recommend direct visualization with colonoscopy or flexible sigmoidoscopy to evaluate for any underlying neoplasm. .
[2016-11-25 13:55] LABS: LIPASE 66 U/L (23-300)
[2016-11-25 13:56] LABS: BLOOD, URINE NEGATIVE (NEGATIVE); COLOR,URINE YELLOW (YELLOW); LEUKOCYTE ESTERASE ,URINE NEGATIVE (NEGATIVE); NITRITE,URINE NEGATIVE (NEGATIVE); UROBILINOGEN,URINE 0.2 EU/DL (NORMAL)
--- NOTE | 2016-11-25 14:11 | NUR ---
SOAP SUDS ENEMA ADMINISTERED AT THIS TIME DIRECTED BY DR OLSON. PT TOLERATED ADMINISTRATION WELL.
--- NOTE | 2016-11-25 14:30 | NUR ---
ENEMA SMALL AMOUNT OF LIQUID RETURN FROM ENEMA. DR OLSON NOTIFIED.
[2016-11-25 14:40] VITALS: BP 184/86; PULSE 66; RESP 16; TEMP 97.7; O2SAT 96
--- NOTE | 2016-11-25 14:47 | NUR ---
DEPART PT ASSISTED TO . PT TAKEN TO PRIVATE VEHICLE DRIVEN BY , TAKEN VIA , BY ANABELLA CHICAS.
== END 2016-11-25 14:47 | disposition home or self-care (01) ==
LOC: ED 12:01
DX: K59.03 Drug induced constipation (principal); T40.2X5A Adverse effect of other opioids, initial encounter; Y92.009 Unspecified place in unspecified non-institutional (private) residence as the place of occurrence of the external cause; I10 Essential (primary) hypertension
CPT/HCPCS: 36000; 51701; 80053; 81003; 83690; 85025; 93005

== ENCOUNTER 2016-11-27 00:59 | Emergency (ER) | payer MEDICARE, OTHER ==
[~2016-11-27] VITALS: Ht 165.1 cm; Wt 89.4 kg
--- OUTSIDE RECORDS SUMMARY | 2016-11-27 01:04 | XMS REPORT | Continuity of Care Document ---
Author Author [facility] Organization [facility] Address Unknown Phone Unavailable Allergies Medications Problems Procedures Results Encounters ACCT No. Visit Date/Time Discharge Status Pt. Type Provider Facility Loc./Unit Complaint [id number] 11/21/2013 12:44:00 11/21/2013 23 :59:59 CLS Outpatient [id number] 11/07/2013 15:10:00 11/07/2013 23 :59:59 CLS Outpatient [id number] 11/05/2013 14:25:00 11/05/2013 23 :59:59 CLS Outpatient [id number] 10/17/2013 14:13:00 10/17/2013 23 :59:59 CLS Outpatient [id number] 10/15/2013 14:49:00 10/15/2013 23 :59:59 CLS Outpatient [id number] 09/24/2013 15:27:00 09/24/2013 23 :59:59 CLS Outpatient [id number] 09/09/2013 14:29:00 09/09/2013 23 :59:59 CLS Outpatient
--- OUTSIDE RECORDS SUMMARY | 2016-11-27 01:05 | XMS REPORT | Continuity of Care Document ---
Author Author [facility] Organization [facility] Address Unknown Phone Unavailable Support Name Relationship Address Phone ELDA TRACEY MD Caregiver [address] [place] [place] [phone] STEPHANE WARNER MD Caregiver [address] [place] [phone] VALENTINA PUTNAM Next Of Kin [address] [place], [place] [id number] Insurance Providers Payer Name Policy Number Subscriber Name Relationship Medicare [id number] Diana Brunson 18 Self Other A Insurance [id number] Diana Brunson 18 Self Advance Directives Directive [...] 2-3 TIMES A WK 05/04/1011/11 Discontinued Fish Oil/[place]-3 Fatty Acids 1 Cap PO NEEDED 05/07/10 [...] F (96.8 - 99.1) Temperature (Calculated Celsius) 36.20086 degrees C (36.0 - 37.3) Pulse Rate [...] 12, 2010 9:33am LAB TEST FORM REQUEST [id number] - Lipase June 20, 2014 1:09am 138 [...] 03, 2014 10:10pm 15.9 % H 0-9.0 WA-Wls-A-Type Natriuretic Peptide October 03, 2014 10:10pm 863 [...] Has specimen been collected/obtained? Y Urine Specific [place] October 04, 2014 12:05am 1.025 - Has [...] completed 07/10/14 EMERGENCY DEPT VISIT completed 07/10/14 [id number] ITEM OR SERVICE completed 07/10/14 233211"INJECTION, HYDROMORPHONE, UP TO 4 MG" completed 07/10/14 [id number]"INFUSION, NORMAL SALINE SOLUTION , 1000 CC" completed 07/10/14 Encounters Encounter Location Date/Time Departed Emergency Room [facility] 10/03/14 10:07pm Departed Emergency Room [facility] 07/10/14 2:48pm Recent Diagnosis
--- OUTSIDE RECORDS SUMMARY | 2016-11-27 01:05 | XMS REPORT | Continuity of Care Document ---
Author Author [facility] Organization [facility] Address Unknown Phone Unavailable Support Name Relationship Address Phone VALENTINA PUTNAM Next Of Kin [address] [place] [address] Unavailable Insurance Providers Payer Name Policy Number Subscriber Name Relationship Medicare [id number] Diana Brunson 18 Self [place] [id number] Diana Brunson 18 Self Problems No Known [...] Prednisone 10 Mg PO DAILY Hydrocodone Bit/Acetaminophen ([place] 7.5/325 Tablet) 1 Tab PO Q4HR Venlafaxine [...] 2010 9:20am 3-5 /HPF - Urine Specific [place] March 05, 2013 12:50pm 1.015 - Urine [...] 05, 2010 8:01am Not indicated - Name: DINAA BRUNSON Unit #: [id number]
: 1935 Sex: F
Loc / Svc: MED Admit Date: 03/05/13
Signed Discharge Date:
DISCHARGE SUMMARY Report #: [id number]

General
Date
Date
DATE: 03/09/13
TIME: 13:07
[...] multiple neurologists, last seeing Dr. Price in [facility]. She is
on Ultram and [...] 10 Mg PO DAILY
12/27/12
Hydrocodone Bit/Acetaminophen ([place] 7.5/325 Tablet) 1 Tab Tablet 1 Tab [...] 13:14 Procedures Procedure Code Date DIAGNOSTIC COLONOSCOPY 46144 06/30/09 TOTAL KNEE REPLACEMENT 81.54 05/04/10 PACKED CELL TRANSFUSION 99.04 05/07/10 AMBULAT & GAIT TRAINING 93.22 05/07/10 OCCUPATIONAL THERAPY 93.83 05/07/10 THER/PROPH/DIAG INJ IV PUSH 50065 07/30/10 TX/PRO/DX INJ NEW DRUG ADDON 62365 07/30/10 REMOVAL OF THYROID 89393 12/10/10 CONTROL OF NOSEBLEED 07703 01/02/11 THER/PROPH/DIAG INJ IV PUSH 60190 01/02/11 HYDRATE IV INFUSION ADD-ON 65907 01/02/11 CONTROL OF [place]SEBLEED 08050 10/22/12 Blood Culture 03/05/13 Gram Stain 05/04/10 Urine Culture 03/05/13 Encounters Encounter Location Date/Time Discharged Inpatient [facility] 03/05/13 1:24pm Departed Emergency Room [facility] 10/22/12 7:19pm
--- OUTSIDE RECORDS SUMMARY | 2016-11-27 01:06 | XMS REPORT | Continuity of Care Document ---
Author Author [facility] Organization [facility] Address Unknown Phone Unavailable Support Name Relationship Address Phone ELDA TRACEY MD Caregiver [address] [place] [phone] ELIZABETH GARZA MD Caregiver [address] [place] [address] [place] [phone] VALENTINA PUTNAM Next Of Kin [address] [place], [place] [id number] Insurance Providers Payer Name Policy Number Subscriber Name Relationship Medicare [id number] Diana Brunson 18 Self Other A Insurance [id number] Diana Brunson 18 Self Advance Directives Directive [...] 2-3 TIMES A WK 05/04/1011/11 Discontinued Fish Oil/[place]-3 Fatty Acids 1 Cap PO NEEDED 05/07/10 [...] F (96.8 - 99.1) Temperature (Calculated Celsius) 37.51419 degrees C (36.0 - 37.3) Pulse Rate [...] 12, 2010 9:33am LAB TEST FORM REQUEST [id number] - Lipase June 20, 2014 1:09am 138 [...] 03, 2014 10:10pm 15.9 % H 0-9.0 QF-Lrk-U-Type Natriuretic Peptide October 03, 2014 10:10pm 863 [...] Has specimen been collected/obtained? Y Urine Specific [place] November 23, 2014 11:25am 1.015 - Has [...] Escherichia Coli Name: DIANA BRUNSON Unit #: [id number] : 1935 Sex: F Loc / Svc: ED DOS: 10/03/14 Signed Report #: [id number] DIAGNOSTIC IMAGING REPORT TYPE OF EXAM: CHEST [...] completed 10/03/14 EMERGENCY DEPT VISIT completed 10/03/14 [id number] ITEM OR SERVICE completed 10/03/14 279898"INFUSION, NORMAL SALINE SOLUTION , 1000 CC" completed 10/03/14 Encounters Encounter Location Date/Time Departed Emergency Room [facility] 11/23/14 10:12am Departed Emergency Room [facility] 10/03/14 10:07pm Recent Diagnosis
--- OUTSIDE RECORDS SUMMARY | 2016-11-27 01:06 | XMS REPORT | Continuity of Care Document ---
Author Author [facility] Organization [facility] Address Unknown Phone Unavailable Support Name Relationship Address Phone ELDA AMIN MD Caregiver [address] [place] [phone] ELIZABETH GARZA MD Caregiver [address] [phone] VALENTINA PUTNAM Next Of Kin [address] [place], [place] [id number] Insurance Providers Payer Name Policy Number Subscriber Name Relationship Medicare [id number] Diana Brunson 18 Self Other A Insurance [id number] Diana Brunson 18 Self Advance Directives Directive Response Recorded Date/Time Advanced Directives Type Living Will DPOA for Healthcare 07/10/14 3:19pm Chief Complaint and Reason for Visit Chief Complaint Nausea,Vomiting,Diarrhea Reason for Visit Gastroenteritis [id number] Abdominal pain Problems Medical Problems Problem Onset [...] 2-3 TIMES A WK 05/04/1011/11 Discontinued Fish Oil/[place]-3 Fatty Acids 1 Cap PO NEEDED 05/07/10 [...] having problems relating to your bowels at [phone]. 2. Please call Dr. Alicea or return to the emergency room if you develope fevers, chills, chest pain, shortness of breath, abdominal pain, dizziness with standing, passing out. Condition at time of discharge: Good Good Good General Information: n/a Condition at time of discharge: Fair Plan of Care Discharge Date 06/23/14 4:05pm Disposition 01 DISCHARGED HOME, SELF-CARE Condition at Discharge Improved Instructions/Education Provided Bacon Diet Nausea and Vomiting-Adult Prescriptions See Medications [...] F (96.8 - 99.1) Temperature (Calculated Celsius) 36.73871 degrees C (36.0 - 37.3) Pulse Rate [...] 12, 2010 9:33am LAB TEST FORM REQUEST [id number] - Lipase June 20, 2014 1:09am 138 [...] 10, 2014 3:50pm 12.3 % H 0-9.0 XS-Hiw-P-Type Natriuretic Peptide April 11, 2014 11:34am 715 [...] Has specimen been collected/obtained? Y Urine Specific [place] July 10, 2014 3:55pm 1.025 - Has [...] Escherichia Coli Name: DIANA BRUNSON Unit #: [id number] : 1935 Sex: F DISCHARGE SUMMARY Admit Date: 06/21/14 Report #: [id number] General Date Date DATE: 06/23/14 TIME: 11:05 [...] 78 year old woman who presented to [facility] ED on 06/20 for acute onset of [...] Prov:JAYME CALDWELL APRN 06/23/14 Gabapentin (Neurontin)600 Mg Ktsptm745 Mg PO TID 30 Days Prov:JAYME CALDWELL APRN 06/23/14 Reported Medications Sotalol HCl (Sotalol)80 Mg Ilrrby45 Mg PO BID 04/11/14 Hydrocodone/Acetaminophen ([place] 10-325 Tablet)1 Each Tablet1 Tab PO Q6H 04/11/14 Divalproex Sodium (Depakote)125 Mg Tablet.dr1 Tab PO BID 04/11/14 Omeprazole (Prilosec)20 Mg Capsule.dr1 Cap PO DAILY 04/11/14 Venlafaxine Hcl (Effexor)100 Mg Rrhdjc52 Mg PO BID 03/24/14 Donepezil Hcl (Aricept)10 Mg Gvpfqk12 Mg PO HS 10/25/13 Meloxicam (Mobic)7.5 Mg Tablet7.5 Mg PO DAILY 10/22/12 Levothyroxine Sodium 125 Mcg Lkkxtb706 Mcg PO DAILY 10/22/12 Simvastatin (Zocor)20 Mg Dxevyf96 Mg PO HS Ref 0 05/07/10 Zolpidem Tartrate (Ambien)10 Mg Hzwxza90 Mg PO HS Ref 0 05/07/10 Discontinued [...] Encounters Encounter Location Date/Time Registered Emergency Room [facility] 07/10/14 2:48pm Discharged Inpatient [facility] 06/21/14 1:06pm Departed Emergency Room [facility] 05/06/14 9:40pm Discharged Inpatient [facility] 04/11/14 12:51pm Recent Diagnosis
--- OUTSIDE RECORDS SUMMARY | 2016-11-27 01:06 | XMS REPORT | Continuity of Care Document ---
Author Author [facility] Organization [facility] Address Unknown Phone Unavailable Support Name Relationship Address Phone TANNER HUANG MD Caregiver [address] [place] [address] [place] [address] ELDA TRACEY MD Caregiver [address] [place] [address] [place] [address] [phone] STEPHANE WARNER MD Caregiver [address] [place] [address] [place] [address] VALENTINA PUTNAM Next Of Kin [address] [place], [place] [id number] Insurance Providers Payer Name Policy Number Subscriber Name Relationship Medicare [id number] Diana Brunson 18 Self [place] [employer] [place] [id number] Diana Brunson 16 Self Advance Directives Directive [...] 2-3 TIMES A WK 05/04/1011/11 Discontinued Fish Oil/[place]-3 Fatty Acids 1 Cap PO NEEDED 05/07/10 [...] F (96.8 - 99.1) Temperature (Calculated Celsius) 36.38309 degrees C (36.0 - 37.3) Temperature Source [...] 12, 2010 9:33am LAB TEST FORM REQUEST [id number] - Lipase March 24, 2014 3:00pm 181 [...] 12, 2014 4:12am 15.7 % H 0-9.0 CS-Nmb-X-Type Natriuretic Peptide April 11, 2014 11:34am 715 [...] Has specimen been collected/obtained? Y Urine Specific [place] April 11, 2014 10:55am 1.020 - Has [...] Escherichia Coli Name: DIANA BRUNSON Unit #: [id number] : 1935 Sex: F Loc / Svc: ED DOS: 04/11/14 Signed Report #: [id number] DIAGNOSTIC IMAGING REPORT TYPE OF EXAM: CT [...] 03/24/14 Encounters Encounter Location Date/Time Discharged Inpatient [facility] 04/11/14 12:51pm Departed Emergency Room [facility] 03/24/14 2:48pm Recent Diagnosis Gait instability Nausea Gait instability CAD (coronary artery disease) Hypercholesterolemia Hypothyroidism GERD (gastroesophageal reflux disease) History of kidney stones Myoclonic jerking
--- OUTSIDE RECORDS SUMMARY | 2016-11-27 01:08 | XMS REPORT | Continuity of Care Document ---
Author Author [facility] Organization [facility] Address Unknown Phone Unavailable Support Name Relationship Address Phone TRISHA DHILLON MD Caregiver [address] [place] [address] ELDA TRACEY MD Caregiver [address] [place] [phone] VALENTINA PUTNAM Next Of Kin [address] [place], [place] [id number] Insurance Providers Payer Name Policy Number Subscriber Name Relationship Medicare [id number] Diana Brunson 18 Self [place] [id number] Diana Brunson 16 Self Advance Directives Directive [...] 2-3 TIMES A WK 05/04/1011/11 Discontinued Fish Oil/[place]-3 Fatty Acids 1 Cap PO NEEDED [...] F (96.8 - 99.1) Temperature (Calculated Celsius) 36.04429 degrees C (36.0 - 37.3) Pulse Rate [...] 11:19am 31.7 sec - PTT performed at [facility] Reference Lab, [address] [place] [address] MedicalDirector Santino Aguirre MD Alanine Aminotransferase (ALT/SGPT) [...] Has specimen been collected/obtained? Y Urine Specific [place] March 24, 2014 3:50pm 1.010 L - [...] 12, 2010 9:33am LAB TEST FORM REQUEST [id number] - EKG August 17, 2009 11:29pm Complete [...] Encounters Encounter Location Date/Time Departed Emergency Room [facility] 03/24/14 2:48pm Recent Diagnosis
--- OUTSIDE RECORDS SUMMARY | 2016-11-27 01:09 | XMS REPORT | Continuity of Care Document ---
Author Author [facility] Organization [facility] Address Unknown Phone Unavailable Support Name Relationship Address Phone FADY WHITE MD Caregiver [facility] [address] [place] [address] Unavailable ELDA TRACEY MD Caregiver [address] [place] [address] [place] [address] [phone] VALENTINA PUTNAM Next Of Kin [address] [place], [place] [id number] Insurance Providers Payer Name Policy Number Subscriber Name Relationship Medicare [id number] Diana Brunson 18 Self [place] [id number] Diana Brunson 16 Self Chief Complaint and Reason for Visit Chief Complaint Female Urogenital Problems Reason for Visit [id number] Nausea Problems Medical Problems Problem Onset Date [...] 2-3 TIMES A WK 05/04/1011/11 Discontinued Fish Oil/[place]-3 Fatty Acids 1 Cap PO NEEDED 05/07/10 [...] Date 04/12/14 3:30pm Disposition 02 TO OBS [facility] Condition at Discharge Stable Instructions/Education Provided Myoclonus [...] F (96.8 - 99.1) Temperature (Calculated Celsius) 36.60686 degrees C (36.0 - 37.3) Pulse Rate [...] Has specimen been collected/obtained? Y Urine Specific [place] April 11, 2014 10:55am 1.020 - Has [...] 12, 2010 9:33am LAB TEST FORM REQUEST [id number] - EKG August 17, 2009 11:29pm Complete [...] Source April 12, 2010 9:18am Nasal - CD-Mps-V-Type Natriuretic Peptide April 11, 2014 11:34am 715 [...] 2010 1:53pm Name: DIANA BRUNSON Unit #: [id number] : 1935 Sex: F Loc / Svc: ED DOS: 04/11/14 Signed Report #: [id number] DIAGNOSTIC IMAGING REPORT TYPE OF EXAM: CT [...] Date/Time Departed Emergency Room [facility] 05/06/14 9:40pm Discharged Inpatient [facility] 04/11/14 12:51pm Departed Emergency Room [facility] 03/24/14 2:48pm Recent Diagnosis
[2016-11-27 01:27] VITALS: Ht 165.1 cm; Wt 89.4 kg
--- NOTE | 2016-11-27 01:40 | ERPDOC ---
Departure Disposition Decision Date: Nov 27, 2016 Disposition Decision Time: 03:04 Disposition: 01 DISCHARGED HOME, SELF-CARE Impression Impression Impression: Primary Impression: Traumatic avulsion of nail plate of toe Encounter type: initial encounter Qualified Codes: S91.209A - Unspecified open wound of unspecified toe(s) with damage to nail, initial encounter Additional Impressions: Fall from standing Encounter type: initial encounter Qualified Codes: W19.XXXA - Unspecified fall, initial encounter Head contusion Encounter type: initial encounter Contusion of head detail: unspecified part of head Qualified Codes: S00.93XA - Contusion of unspecified part of head , initial encounter Severity: Moderate Condition: Stable Seen By: Physician only Referrals: ELDA TRACEY MD (Family) Follow-up with Dr. Tracey for reevaluation Patient Instructions: Nail Avulsion (ED) Problems/Meds/Labs Reviewed?: Yes Medications reviewed and manag: Yes Additional Instructions: Change bandage in 2 days Follow up care ordered?: Yes Mental Status: Alert, Oriented HPI - Fall/Injury General Stated Complaint: TOE BLEEDING AFTER FALL Time Seen by Provider: 01:40 Source: patient, family Exam Limitations: no limitations HPI - Fall/Injury Initial Comments Patient is an 81-year-old female presents emergency department for evaluation of toe bleeding. helped patient up to the bathroom this morning, patient knee gave out and she fell. Patient right 2nd digit toe active bleeding , patient is on anticoagulation. Patient and family feel that she might of hit her head. Patient was brought to the ER for evaluation. Occurred At: home Onset: Rapid Injuries/Pain Location: head, lower extremity Context: lost balance Allergies: Coded Allergies: Penicillins (Verified Allergy, Severe, ANAPHYLACTIC-ENDED IN ICU FOR A DAY , 11/27/16) Iodinated Contrast Media - Oral and (Verified Allergy, Unknown, RASH,SOA, 11/27/16) Sulfa (Sulfonamide Antibiotics) (Verified Allergy, Unknown, RASH,ITCHY, ) fluoxetine (Verified Allergy, Unknown, 11/27/16) morphine (Verified Allergy, Unknown, 11/27/16) nitrofurantoin (Verified Allergy, Unknown, 11/27/16) aspirin (Verified Adverse Reaction, Intermediate, HIGH BP, SOA, 11/27/16) naproxen sodium (Verified Adverse Reaction, Intermediate, HIGH BP, SOA, ) metoclopramide (Verified Adverse Reaction, Unknown, 11/27/16) PT HAD REGLAN PREOPERATIVELY AND A REACTION THAT SHE WAS UNABLE TO DESCRIBE Past History Patient Surgical History Cholecystectomy Heart catheterization Foot surgery Knee surgery, right TKA Past Medical History Metabolic: hypercholesterolemia, hypertension, hypothyroidism Cardiac: CAD GI: GERD, constipation Female: UTI, kidney stones Neurological: headaches Musculoskeletal: neck pain Psychological: depression Surgical History General: gallbladder Cardiac: cardiac cath Joint: foot, knee Family History Family PMH: FOUND: cancer Vaccines Hx Influenza Vaccination: No (unsure) Hx Pneumococcal Vaccination: No (unsure) Hx Tetanus, Diptheria, Pertuss: No Social History Substance Use Type: does not use Alcohol Intake: none Marital Status: Sexuality: male partner Housing: house Current Occupational Status: retired Review of Systems Constitutional Constitutional: DENIES: chills, dizziness, fever, weakness ENMT Sinuses: DENIES: congestion, rhinorrhea Cardiovascular Cardiac: DENIES: chest pain, dyspnea on exertion Pulmonary Respiratory: DENIES: cough, dyspnea, sputum, tachypnea GI Upper Abdomen: DENIES: nausea, pain, vomiting Lower Abdomen: DENIES: constipation, diarrhea, pain General: DENIES: frequency, urgency Musculoskeletal General: see HPI Integumentary Skin: see HPI Neurological General: DENIES: change in strength, headache, numbness, weakness Endocrine Endocrine: DENIES: heat/cold intolerance Hematologic/Lymphatic Hematologic/Lymphatic: DENIES: anemia Physical Exam General General Nourishment: well nourished, well developed General Body Habitus: well groomed Vitals and Pain First Documented Vital Signs Date Time Temp Pulse Resp B/P Pulse Ox O2 Delivery O2 Flow Rate FiO2 11/27/16 01:27 97.5 69 20 196/91 Room Air 11/27/16 01:45 98 Weight: Kilograms: Height (feet): 5 Height (inches): 5.00 Triage Pain Scale: RN VS reviewed by Provider: Yes Eyes (brief) Eyes Brief: found: EOMI, PERRL ENMT (brief) ENMT Brief: FOUND: TM clear, TM good light reflex, ear canals clear, mucosa moist, normal dentition, NOT FOUND: nasal erythema, nasal exudate, nasal swelling Neck (brief) Neck: NOT FOUND: adenopathy, spasm, tenderness Respiratory (brief) Respiratory: FOUND: clear all santiago, equal bilaterally, NOT FOUND: rales, wheezes Cardiovascular (brief) Cardiac: FOUND: regular rate, regular rhythm Capillary Refill: <2 sec Fastrak Foot/Ankle Foot/Ankle : Leg: Right Leg: NOT FOUND: contusion, deformity, discoloration, swelling, tender Ankle: NOT FOUND: achilles tendon insertion, tender lat. foot, tender lat. malleolus, tender med. malleolus, tender mid foot Foot: NOT FOUND: discoloration, numbness, swelling, tender 1st MTP joint, tender plantar fascia Toes: nail avulsion (patient has completely avulsed the nail off a 2nd digit ), NOT FOUND: decreased ROM, deformity, erythema, subungual hematoma Posterior Tibial Pulse: 3+ Dorsalis Pedis Pulse: 3+ Integumentary (brief) Integumentary Brief: FOUND: dry, pink, warm Neurologic (brief) Neurological Brief: FOUND: CN w/o gross def to obs, motor-no gross deficits, sensory-no gross deficits Psychiatric (brief) Psychiatric Brief: FOUND: alert, oriented Differential Diagnoses Considering: Abrasion, Concussion, Contusion, Epidural Hematoma, Dislocation, Fracture, Sprain, Strain, Subdural Hematoma, Other (laceration, avulsion) Progress Results/Orders Orders Procedure Category Date Status Time Toes Right 2 View RAD 11/27/16 Resulted Minimum 01:45 Ct Head W/O Contrast CT 11/27/16 Resulted 01:45 Lidocaine 1% PHA 11/27/16 Complete (Xylocaine 1%) 01:45 Tetanus + Diphtheria PHA 11/27/16 Complete Toxoid (Tenivac) 02:00 Acetaminophen PHA 11/27/16 Complete (Tylenol Extra 03:15 Dressing (Ed) EDM 11/27/16 Transmitted 03:07 Medications Current ED Medications Lidocaine HCl (Xylocaine 1%) 100 mg O ONCE INFIL ; Start 11/27/16 at 01:45; Stop 11/27/16 at 01:47; Status DC Tetanus/ Diphtheria Toxoids Adsorbed (Tenivac) 0.5 ml O ONCE IM Last administered on 11/27/16 03:14; Start 11/27/16 at 02:00; Stop 11/27/16 at 02:01 ; Status DC Acetaminophen (Tylenol Extra Strength) 1,000 mg O ONCE PO Last administered on 11/27/16t 03:09; Start 11/27/16 at 03:15; Stop 11/27/16 at 03:16; Status DC Xray Xray : Xray: Toe(s) R Interpretation: Normal, Interpreted by Me (no acute fractures or dislocations noted) CT CT : CT: Head no contrast Interpretation: Normal, Faxed Report STEPHANE WARNER MD Nov 27, 2016 01:40
[2016-11-27] MEDS ORDERED: LIDOCAINE 1% (10mg/ml) 30ml SDV INFIL ONE (01:45)
[2016-11-27] MEDS ORDERED: TETANUS + DIPHTHERIA (Td)(Adult) 0.5ml SYRINGE IM ONE (02:00)
--- NOTE | 2016-11-27 02:05 | NUR ---
IMAGING PT TO IMAGING VIA CART
--- NOTE | 2016-11-27 02:25 | NUR ---
IMAGING PT RETURN TO ROOM VIA CART FROM IMAGING AT THIS TIME.
[2016-11-27] MEDS ORDERED: FLUD0.1T PO (03:03)
[2016-11-27] MEDS ORDERED: CEPH-582 PO (03:03)
[2016-11-27] MEDS ORDERED: AMIO200T2 PO (03:03)
[2016-11-27] MEDS ORDERED: LISI2.5T2 PO (03:03)
[2016-11-27] MEDS ORDERED: CARV3.123 PO (03:03)
[2016-11-27] MEDS ORDERED: ACETAMINOPHEN 500 MG TABLET PO ONE (03:15)
--- NOTE | 2016-11-27 03:30 | NUR ---
BEDSIDED COMMMODE PT ASSISTED TO BEDSIDE COMMODE. ASSIST X2 AND GAIT BELT.
[2016-11-27 03:50] VITALS: BP 186/83; PULSE 57; RESP 20; TEMP 97.5; O2SAT 97
--- NOTE | 2016-11-27 03:50 | NUR ---
DEPART PT AND SPOUSE GIVEN DI FOR NAIL AVULSION AND F/U. BOTH VERBALIZE UNDERSTANDING. QUESTIONS ASKED/ANSWERED - DENY FURTHER QUESTIONS/NEEDS AT THIS TIME. PERSONAL BELONGINGS GATHERED. DRESSING ON TOE IN PLACE - CLEAN/DRY/INTACT AND APPROPRIATE. PT ASSISTED TO PERSONAL WHEEL CHAIR - ASSIST X2 AND GAIT BELT. PT ESCORTED TO ED EXIT WHERE SPOUSE MET WITH PRIVATE VEHICLE. PT ASSISTED FROM WHEEL CHAIR TO PRIVATE VEHICLE - ASSIST X2, GAIT BELT. NO SIGN OF DISTRESS.
--- OUTSIDE RECORDS SUMMARY | 2016-11-27 04:05 | XMS REPORT | Continuity of Care Document ---
Author Author [facility] Organization [facility] Address Unknown Phone Unavailable Allergies Medications Problems Procedures Results Encounters ACCT No. Visit Date/Time Discharge Status Pt. Type Provider Facility Loc./Unit Complaint [id number] 11/21/2013 12:44:00 11/21/2013 23 :59:59 CLS Outpatient [id number] 11/07/2013 15:10:00 11/07/2013 23 :59:59 CLS Outpatient [id number] 11/05/2013 14:25:00 11/05/2013 23 :59:59 CLS Outpatient [id number] 10/17/2013 14:13:00 10/17/2013 23 :59:59 CLS Outpatient [id number] 10/15/2013 14:49:00 10/15/2013 23 :59:59 CLS Outpatient [id number] 09/24/2013 15:27:00 09/24/2013 23 :59:59 CLS Outpatient [id number] 09/09/2013 14:29:00 09/09/2013 23 :59:59 CLS Outpatient
--- OUTSIDE RECORDS SUMMARY | 2016-11-27 04:06 | XMS REPORT | Continuity of Care Document ---
Author Author [facility] Organization [facility] Address Unknown Phone Unavailable Support Name Relationship Address Phone VALENTINA PUTNAM Next Of Kin [address] [place] [address] Unavailable Insurance Providers Payer Name Policy Number Subscriber Name Relationship Medicare [id number] Diana Brunson 16 Self [place] [employer] [place] [id number] Diana Brunson 16 Self Problems No Known [...] Prednisone 10 Mg PO DAILY Hydrocodone Bit/Acetaminophen ([place] 7.5/325 Tablet) 1 Tab PO Q4HR Venlafaxine [...] 2010 9:20am 3-5 /HPF - Urine Specific [place] March 05, 2013 12:50pm 1.015 - Urine [...] indicated - Name: DIANA BRUNSON Unit #: [id number]
: 1935 Sex: F
Loc / Svc: MED Admit Date: 03/05/13
Signed Discharge Date:
DISCHARGE SUMMARY Report #: [id number]

General
Date
Date
DATE: 03/09/13
TIME: 13:07
[...] 10 Mg PO DAILY
12/27/12
Hydrocodone Bit/Acetaminophen ([place] 7.5/325 Tablet) 1 Tab Tablet 1 Tab [...] 13:14 Procedures Procedure Code Date DIAGNOSTIC COLONOSCOPY 52622 06/30/09 TOTAL KNEE REPLACEMENT 81.54 05/04/10 PACKED CELL TRANSFUSION 99.04 05/07/10 AMBULAT & GAIT TRAINING 93.22 05/07/10 OCCUPATIONAL THERAPY 93.83 05/07/10 THER/PROPH/DIAG INJ IV PUSH 97953 07/30/10 TX/PRO/DX INJ NEW DRUG ADDON 66724 07/30/10 REMOVAL OF THYROID 17419 12/10/10 CONTROL OF NOSEBLEED 45372 01/02/11 THER/PROPH/DIAG INJ IV PUSH 43895 01/02/11 HYDRATE IV INFUSION ADD-ON 51225 01/02/11 CONTROL OF [place]SEBLEED 74062 10/22/12 Blood Culture 03/05/13 Gram Stain 05/04/10 Urine Culture 03/05/13 Encounters Encounter Location Date/Time Discharged Inpatient [facility] 03/05/13 1:24pm Departed Emergency Room [facility] 10/22/12 7:19pm
--- OUTSIDE RECORDS SUMMARY | 2016-11-27 04:06 | XMS REPORT | Continuity of Care Document ---
Author Author [facility] Organization [facility] Address Unknown Phone Unavailable Support Name Relationship Address Phone ELDA TRACEY MD Caregiver [address] [place] [place] [phone] STEPHANE WARNER MD Caregiver [address] [place] [address] [place] [phone] VALENTINA PUTNAM Next Of Kin [address] [place], [place] [id number] Insurance Providers Payer Name Policy Number Subscriber Name Relationship Medicare [id number] Diana Brunson 18 Self Other A Insurance [id number] Diana Brunson 16 Self Advance Directives Directive [...] 2-3 TIMES A WK 05/04/1011/11 Discontinued Fish Oil/[place]-3 Fatty Acids 1 Cap PO NEEDED 05/07/10 [...] F (96.8 - 99.1) Temperature (Calculated Celsius) 36.86965 degrees C (36.0 - 37.3) Pulse Rate [...] 12, 2010 9:33am LAB TEST FORM REQUEST [id number] - Lipase June 20, 2014 1:09am 138 [...] 03, 2014 10:10pm 15.9 % H 0-9.0 LA-Rze-Y-Type Natriuretic Peptide October 03, 2014 10:10pm 863 [...] Has specimen been collected/obtained? Y Urine Specific [place] October 04, 2014 12:05am 1.025 - Has [...] completed 07/10/14 EMERGENCY DEPT VISIT completed 07/10/14 [id number] ITEM OR SERVICE completed 07/10/14 953720"INJECTION, HYDROMORPHONE, UP TO 4 MG" completed 07/10/14 [id number]"INFUSION, NORMAL SALINE SOLUTION , 1000 CC" completed 07/10/14 Encounters Encounter Location Date/Time Departed Emergency Room [facility] 10/03/14 10:07pm Departed Emergency Room [facility] 07/10/14 2:48pm Recent Diagnosis
--- OUTSIDE RECORDS SUMMARY | 2016-11-27 04:07 | XMS REPORT | Continuity of Care Document ---
Author Author [facility] Organization [facility] Address Unknown Phone Unavailable Support Name Relationship Address Phone ELDA TRACEY MD Caregiver [address] [place] [phone] ELIZABETH GARZA MD Caregiver [address] [place] [address] [place] [phone] VALENTINA PUTNAM Next Of Kin [address] [place], [place] [id number] Insurance Providers Payer Name Policy Number Subscriber Name Relationship Medicare [id number] Diana Brunson 18 Self Other A Insurance [id number] Diana Brunson 16 Self Advance Directives Directive [...] 2-3 TIMES A WK 05/04/1011/11 Discontinued Fish Oil/[place]-3 Fatty Acids 1 Cap PO NEEDED 05/07/10 [...] F (96.8 - 99.1) Temperature (Calculated Celsius) 37.01535 degrees C (36.0 - 37.3) Pulse Rate [...] 12, 2010 9:33am LAB TEST FORM REQUEST [id number] - Lipase June 20, 2014 1:09am 138 [...] 03, 2014 10:10pm 15.9 % H 0-9.0 WX-Zck-Z-Type Natriuretic Peptide October 03, 2014 10:10pm 863 [...] Has specimen been collected/obtained? Y Urine Specific [place] November 23, 2014 11:25am 1.015 - Has [...] Escherichia Coli Name: DIANA BRUNSON Unit #: [id number] : 1935 Sex: F Loc / Svc: ED DOS: 10/03/14 Signed Report #: [id number] DIAGNOSTIC IMAGING REPORT TYPE OF EXAM: CHEST [...] completed 10/03/14 EMERGENCY DEPT VISIT completed 10/03/14 [id number] ITEM OR SERVICE completed 10/03/14 141196"INFUSION, NORMAL SALINE SOLUTION , 1000 CC" completed 10/03/14 Encounters Encounter Location Date/Time Departed Emergency Room [facility] 11/23/14 10:12am Departed Emergency Room [facility] 10/03/14 10:07pm Recent Diagnosis
--- OUTSIDE RECORDS SUMMARY | 2016-11-27 04:07 | XMS REPORT | Continuity of Care Document ---
Author Author [facility] Organization [facility] Address Unknown Phone Unavailable Support Name Relationship Address Phone ELDA AMIN MD Caregiver [address] [place] [phone] ELIZABETH GARZA MD Caregiver [address] [place] [phone] VALENTINA PUTNAM Next Of Kin [address] [place], [place] [id number] Insurance Providers Payer Name Policy Number Subscriber Name Relationship Medicare [id number] Diana Brunson 18 Self Other A Insurance [id number] Diana Brunson 16 Self Advance Directives Directive Response Recorded Date/Time Advanced Directives Type Living Will DPOA for Healthcare 07/10/14 3:19pm Chief Complaint and Reason for Visit Chief Complaint Nausea,Vomiting,Diarrhea Reason for Visit Gastroenteritis [id number] Abdominal pain Problems Medical Problems Problem Onset [...] 2-3 TIMES A WK 05/04/1011/11 Discontinued Fish Oil/[place]-3 Fatty Acids 1 Cap PO NEEDED 05/07/10 [...] having problems relating to your bowels at [phone]. 2. Please call Dr[address] Alicea or return to the emergency room if you develope fevers, chills, chest pain, shortness of breath, abdominal pain, dizziness with standing, passing out. Condition at time of discharge: Good Good Good General Information: n/a Condition at time of discharge: Fair Plan of Care Discharge Date 06/23/14 4:05pm Disposition 01 DISCHARGED HOME, SELF-CARE Condition at Discharge Improved Instructions/Education Provided [place] Diet Nausea and Vomiting-Adult Prescriptions See Medications [...] F (96.8 - 99.1) Temperature (Calculated Celsius) 36.90570 degrees C (36.0 - 37.3) Pulse Rate [...] 12, 2010 9:33am LAB TEST FORM REQUEST [id number] - Lipase June 20, 2014 1:09am 138 [...] 10, 2014 3:50pm 12.3 % H 0-9.0 KI-Hqj-T-Type Natriuretic Peptide April 11, 2014 11:34am 715 [...] Has specimen been collected/obtained? Y Urine Specific [place] July 10, 2014 3:55pm 1.025 - Has [...] Escherichia Coli Name: DIANA BRUNSON Unit #: [id number] : 1935 Sex: F DISCHARGE SUMMARY Admit Date: 06/21/14 Report #: [id number] General Date Date DATE: 06/23/14 TIME: 11:05 [...] 78 year old woman who presented to [facility] ED on 06/20 for acute onset of [...] Prov:JAYME CALDWELL APRN 06/23/14 Gabapentin (Neurontin)600 Mg Daxphd952 Mg PO TID 30 Days Prov:JAYME CALDWELL APRN 06/23/14 Reported Medications Sotalol HCl (Sotalol)80 Mg Iunfjj89 Mg PO BID 04/11/14 Hydrocodone/Acetaminophen ([place] 10-325 Tablet)1 Each Tablet1 Tab PO Q6H 04/11/14 Divalproex Sodium (Depakote)125 Mg Tablet.dr1 Tab PO BID 04/11/14 Omeprazole (Prilosec)20 Mg Capsule.dr1 Cap PO DAILY 04/11/14 Venlafaxine Hcl (Effexor)100 Mg Utlwwq16 Mg PO BID 03/24/14 Donepezil Hcl (Aricept)10 Mg Nxkyta31 Mg PO HS 10/25/13 Meloxicam (Mobic)7.5 Mg Tablet7.5 Mg PO DAILY 10/22/12 Levothyroxine Sodium 125 Mcg Gtcwcr437 Mcg PO DAILY 10/22/12 Simvastatin (Zocor)20 Mg Djbplj66 Mg PO HS Ref 0 05/07/10 Zolpidem Tartrate (Ambien)10 Mg Wlcmvj49 Mg PO HS Ref 0 05/07/10 Discontinued [...] Encounters Encounter Location Date/Time Registered Emergency Room [facility] 07/10/14 2:48pm Discharged Inpatient [facility] 06/21/14 1:06pm Departed Emergency Room [facility] 05/06/14 9:40pm Discharged Inpatient [facility] 04/11/14 12:51pm Recent Diagnosis
--- OUTSIDE RECORDS SUMMARY | 2016-11-27 04:08 | XMS REPORT | Continuity of Care Document ---
Author Author [facility] Organization [facility] Address Unknown Phone Unavailable Support Name Relationship Address Phone TANNER HUANG MD Caregiver [address] [place] [address] [place] [address] ELDA TRACEY MD Caregiver [address] [place] [address] [place] [address] [phone] STEPHANE WARNER MD Caregiver [address] [place] [address] [place] [address] VALENTINA PUTNAM Next Of Kin [address] [place], [place] [id number] Insurance Providers Payer Name Policy Number Subscriber Name Relationship Medicare [id number] Diana Brunson 16 Self [place] [id number] Diana Brunson 16 Self Advance Directives Directive [...] 2-3 TIMES A WK 05/04/1011/11 Discontinued Fish Oil/[place]-3 Fatty Acids 1 Cap PO NEEDED 05/07/10 [...] F (96.8 - 99.1) Temperature (Calculated Celsius) 36.14906 degrees C (36.0 - 37.3) Temperature Source [...] 12, 2010 9:33am LAB TEST FORM REQUEST [id number] - Lipase March 24, 2014 3:00pm 181 [...] 12, 2014 4:12am 15.7 % H 0-9.0 TR-Cpf-T-Type Natriuretic Peptide April 11, 2014 11:34am 715 [...] Has specimen been collected/obtained? Y Urine Specific [place] April 11, 2014 10:55am 1.020 - Has [...] Escherichia Coli Name: DIANA BRUNSON Unit #: [id number] : 1935 Sex: F Loc / Svc: ED DOS: 04/11/14 Signed Report #: [id number] DIAGNOSTIC IMAGING REPORT TYPE OF EXAM: CT [...] 03/24/14 Encounters Encounter Location Date/Time Discharged Inpatient [facility] 04/11/14 12:51pm Departed Emergency Room [facility] 03/24/14 2:48pm Recent Diagnosis Gait instability Nausea Gait instability CAD (coronary artery disease) Hypercholesterolemia Hypothyroidism GERD (gastroesophageal reflux disease) History of kidney stones Myoclonic jerking
--- OUTSIDE RECORDS SUMMARY | 2016-11-27 04:09 | XMS REPORT | Continuity of Care Document ---
Author Author [facility] Organization [facility] Address Unknown Phone Unavailable Support Name Relationship Address Phone TRISHA DHILLON MD Caregiver [address] [place] [address] ELDA TRACEY MD Caregiver [address] [place] [phone] VALENTINA PUTNAM Next Of Kin [address] [place], [place] [id number] Insurance Providers Payer Name Policy Number Subscriber Name Relationship Medicare [id number] Diana Brunson 16 Self [place] [id number] Diana Brunson 16 Self Advance Directives Directive [...] 2-3 TIMES A WK 05/04/1011/11 Discontinued Fish Oil/[place]-3 Fatty Acids 1 Cap PO NEEDED 05/07/10 [...] F (96.8 - 99.1) Temperature (Calculated Celsius) 36.83416 degrees C (36.0 - 37.3) Pulse Rate [...] 11:19am 31.7 sec - PTT performed at [facility] Reference Lab, [address] [place] [id number] MedicalDirector Santino Aguirre MD Alanine Aminotransferase (ALT/SGPT) [...] Has specimen been collected/obtained? Y Urine Specific [place] March 24, 2014 3:50pm 1.010 L - [...] 12, 2010 9:33am LAB TEST FORM REQUEST [id number] - EKG August 17, 2009 11:29pm Complete [...] Encounter Location Date/Time Departed Emergency Room [facility] 03/24/14 2:48pm Recent Diagnosis
--- OUTSIDE RECORDS SUMMARY | 2016-11-27 04:10 | XMS REPORT | Continuity of Care Document ---
Author Author [facility] Organization [facility] Address Unknown Phone Unavailable Support Name Relationship Address Phone FADY WHITE MD Caregiver [facility] [address] [place] [address] Unavailable ELDA TRACEY MD Caregiver [address] [place] [address] [place] [address] [phone] VALENTINA PUTNAM Next Of Kin [address] [place], [place] [id number] Insurance Providers Payer Name Policy Number Subscriber Name Relationship Medicare [id number] Diana Brunson 16 Self [place] [id number] Diana Brunson 16 Self Chief Complaint and Reason for Visit Chief Complaint Female Urogenital Problems Reason for Visit [id number] Nausea Problems Medical Problems Problem Onset Date [...] 2-3 TIMES A WK 05/04/1011/11 Discontinued Fish Oil/[place]-3 Fatty Acids 1 Cap PO NEEDED 05/07/10 [...] Date 04/12/14 3:30pm Disposition 02 TO OBS [facility] Condition at Discharge Stable Instructions/Education Provided Myoclonus [...] F (96.8 - 99.1) Temperature (Calculated Celsius) 36.60526 degrees C (36.0 - 37.3) Pulse Rate [...] Has specimen been collected/obtained? Y Urine Specific [place] April 11, 2014 10:55am 1.020 - Has [...] 12, 2010 9:33am LAB TEST FORM REQUEST [id number] - EKG August 17, 2009 11:29pm Complete [...] Source April 12, 2010 9:18am Nasal - DI-Qsn-O-Type Natriuretic Peptide April 11, 2014 11:34am 715 [...] 2010 1:53pm Name: DIANA BRUNSON Unit #: [id number] : 1935 Sex: F Loc / Svc: ED DOS: 04/11/14 Signed Report #: [id number] DIAGNOSTIC IMAGING REPORT TYPE OF EXAM: CT [...] Encounters Encounter Location Date/Time Departed Emergency Room [facility] 05/06/14 9:40pm Discharged Inpatient [facility] 04/11/14 12:51pm Departed Emergency Room [facility] 03/24/14 2:48pm Recent Diagnosis
--- NOTE | 2016-11-27 08:19 | DI ---
Indication: ITS.REASON: Laceration to the distal right 2nd toe distal phalanx area PROCEDURE: TOES RIGHT 2 VIEW MINIMUM: Encounter: Initial Comparison: None Findings: No acute fracture or dislocation. Severe hallux valgus deformity possible prior surgery. Hardware in the area of the partial bones, incompletely evaluated. Bony demineralization limiting detection of nondisplaced fracture. Impression: No acute displaced fracture. .
--- NOTE | 2016-11-27 08:21 | DI ---
Indication: ITS.REASON: fall, headache PROCEDURE: CT HEAD W/O CONTRAST: Encounter: Initial Comparison: April 04, 2016 Technique: Axial CT images through the head were performed without contrast. Iterative Reconstruction dose reducing technique was utilized. FINDINGS: Moderate atrophy. The ventricles are unchanged. There is no evidence of acute intracranial hemorrhage, midline displacement, or mass effect. There are extensive areas of low attenuation in the white matter which most likely represent changes of chronic microvascular ischemia. The CT attenuation of the brain parenchyma is otherwise normal within the cerebellum, brain stem, and cerebral hemispheres. Chronic small left mastoid effusion. There are no definite fractures of the skull base, calvarium, or visualized portion of the midface. IMPRESSION: No CT evidence of acute traumatic intracranial injury. There is a preliminary report by virtual radiologic. .
[2016-11-28] MEDS ORDERED: [UNRECOGNIZED DRUG - CODE] PO (15:10)
== END 2016-11-27 03:50 | disposition home or self-care (01) ==
LOC: ED 00:59
DX: S91.204A Unspecified open wound of right lesser toe(s) with damage to nail, initial encounter (principal); S00.93XA Contusion of unspecified part of head, initial encounter; W18.39XA Other fall on same level, initial encounter; Y93.89 Activity, other specified; Y92.002 Bathroom of unspecified non-institutional (private) residence as the place of occurrence of the external cause; Y99.8 Other external cause status
CPT/HCPCS: 70450; 73660; 90471; 90714; 99284; A6223; A9270

== ENCOUNTER 2016-11-28 14:31 | Emergency (ER) | payer MEDICARE, OTHER ==
[~2016-11-28] VITALS: Ht 165.1 cm; Wt 87.3 kg
[~2016-11-28 14:31] MED LIST changes: +AMIO200T2 PO; +CARV3.123 PO; +CEPH-582 PO; +FLUD0.1T PO; +LISI2.5T2 PO
[2016-11-28 14:33] VITALS: TEMP 98.1; Ht 165.1 cm; Wt 87.3 kg
--- OUTSIDE RECORDS SUMMARY | 2016-11-28 14:36 | XMS REPORT | Continuity of Care Document ---
Author Author [facility] Organization [facility] Address Unknown Phone Unavailable Allergies Medications Problems Procedures Results Encounters ACCT No. Visit Date/Time Discharge Status Pt. Type Provider Facility Loc./Unit Complaint [id number] 11/21/2013 12:44:00 11/21/2013 23 :59:59 CLS Outpatient [id number] 11/07/2013 15:10:00 11/07/2013 23 :59:59 CLS Outpatient [id number] 11/05/2013 14:25:00 11/05/2013 23 :59:59 CLS Outpatient [id number] 10/17/2013 14:13:00 10/17/2013 23 :59:59 CLS Outpatient [id number] 10/15/2013 14:49:00 10/15/2013 23 :59:59 CLS Outpatient [id number] 09/24/2013 15:27:00 09/24/2013 23 :59:59 CLS Outpatient [id number] 09/09/2013 14:29:00 09/09/2013 23 :59:59 CLS Outpatient
--- OUTSIDE RECORDS SUMMARY | 2016-11-28 14:37 | XMS REPORT | Continuity of Care Document ---
Author Author [facility] Organization [facility] Address Unknown Phone Unavailable Support Name Relationship Address Phone VALENTINA PUTNAM Next Of Kin [address] [place] [address] Unavailable Insurance Providers Payer Name Policy Number Subscriber Name Relationship Medicare [id number] Diana Brunson 16 Self [place] [id number] Diana Brunson 16 Self Problems No Known [...] Prednisone 10 Mg PO DAILY Hydrocodone Bit/Acetaminophen ([place] 7.5/325 Tablet) 1 Tab PO Q4HR Venlafaxine [...] 2010 9:20am 3-5 /HPF - Urine Specific [place] March 05, 2013 12:50pm 1.015 - Urine [...] indicated - Name: DIANA BRUNSON Unit #: [id number]
: 1935 Sex: F
Loc / Svc: MED Admit Date: 03/05/13
Signed Discharge Date:
DISCHARGE SUMMARY Report #: [id number]

General
Date
Date
DATE: 03/09/13
TIME: 13:07
[...] multiple neurologists, last seeing Dr. Price in [facility]. She is
on Ultram and Lortab for [...] 10 Mg PO DAILY
12/27/12
Hydrocodone Bit/Acetaminophen ([place] 7.5/325 Tablet) 1 Tab Tablet 1 Tab [...] 13:14 Procedures Procedure Code Date DIAGNOSTIC COLONOSCOPY 52074 06/30/09 TOTAL KNEE REPLACEMENT 81.54 05/04/10 PACKED CELL TRANSFUSION 99.04 05/07/10 AMBULAT & GAIT TRAINING 93.22 05/07/10 OCCUPATIONAL THERAPY 93.83 05/07/10 THER/PROPH/DIAG INJ IV PUSH 97534 07/30/10 TX/PRO/DX INJ NEW DRUG ADDON 53596 07/30/10 REMOVAL OF THYROID 29672 12/10/10 CONTROL OF NOSEBLEED 03442 01/02/11 THER/PROPH/DIAG INJ IV PUSH 96599 01/02/11 HYDRATE IV INFUSION ADD-ON 56402 01/02/11 CONTROL OF NOSEBLEED 22939 10/22/12 Blood Culture 03/05/13 Gram Stain 05/04/10 Urine Culture 03/05/13 Encounters Encounter Location Date/Time Discharged Inpatient [facility] 03/05/13 1:24pm Departed Emergency Room [facility] 10/22/12 7:19pm
--- OUTSIDE RECORDS SUMMARY | 2016-11-28 14:37 | XMS REPORT | Continuity of Care Document ---
Author Author [facility] Organization [facility] Address Unknown Phone Unavailable Support Name Relationship Address Phone ELDA TRACEY MD Caregiver [address] [place] [address] [place] [phone] STEPHANE WARNER MD Caregiver [address] [place] [place] [phone] VALENTINA PUTNAM Next Of Kin [address] [place], [place] [address] Insurance Providers Payer Name Policy Number Subscriber Name Relationship Medicare [id number] Diana Brunson 16 Self Other A Insurance [id number] Diana Brunson 16 Self Advance Directives Directive [...] 2-3 TIMES A WK 05/04/1011/11 Discontinued Fish Oil/[place]-3 Fatty Acids 1 Cap PO NEEDED 05/07/10 [...] F (96.8 - 99.1) Temperature (Calculated Celsius) 36.13676 degrees C (36.0 - 37.3) Pulse Rate [...] 12, 2010 9:33am LAB TEST FORM REQUEST [id number] - Lipase June 20, 2014 1:09am 138 [...] 03, 2014 10:10pm 15.9 % H 0-9.0 NC-Jsk-W-Type Natriuretic Peptide October 03, 2014 10:10pm 863 [...] Has specimen been collected/obtained? Y Urine Specific [place] October 04, 2014 12:05am 1.025 - Has [...] completed 07/10/14 EMERGENCY DEPT VISIT completed 07/10/14 [id number] ITEM OR SERVICE completed 07/10/14 [id number]"INJECTION, HYDROMORPHONE, UP TO 4 MG" completed 07/10/14 134992"INFUSION, NORMAL SALINE SOLUTION , 1000 CC" completed 07/10/14 Encounters Encounter Location Date/Time Departed Emergency Room [facility] 10/03/14 10:07pm Departed Emergency Room [facility] 07/10/14 2:48pm Recent Diagnosis
--- OUTSIDE RECORDS SUMMARY | 2016-11-28 14:38 | XMS REPORT | Continuity of Care Document ---
Author Author [facility] Organization [facility] Address Unknown Phone Unavailable Support Name Relationship Address Phone ELDA TRACEY MD Caregiver [address] [place] [phone] ELIZABETH GARZA MD Caregiver [address] [place] [place] [phone] VALENTINA PUTNAM Next Of Kin [address] [place], [place] [id number] Insurance Providers Payer Name Policy Number Subscriber Name Relationship Medicare [id number] Diana Brunson 16 Self Other A Insurance [id number] Diana Brunson 16 Self Advance Directives Directive [...] 2-3 TIMES A WK 05/04/1011/11 Discontinued Fish Oil/[place]-3 Fatty Acids 1 Cap PO NEEDED 05/07/10 [...] F (96.8 - 99.1) Temperature (Calculated Celsius) 37.06844 degrees C (36.0 - 37.3) Pulse Rate [...] 12, 2010 9:33am LAB TEST FORM REQUEST [id number] - Lipase June 20, 2014 1:09am 138 [...] 03, 2014 10:10pm 15.9 % H 0-9.0 GA-Roi-O-Type Natriuretic Peptide October 03, 2014 10:10pm 863 [...] Has specimen been collected/obtained? Y Urine Specific [place] November 23, 2014 11:25am 1.015 - Has [...] Escherichia Coli Name: DIANA BRUNSON Unit #: [id number] : 1935 Sex: F Loc / Svc: ED DOS: 10/03/14 Signed Report #: [id number] DIAGNOSTIC IMAGING REPORT TYPE OF EXAM: CHEST [...] completed 10/03/14 EMERGENCY DEPT VISIT completed 10/03/14 [id number] ITEM OR SERVICE completed 10/03/14 [id number]"INFUSION, NORMAL SALINE SOLUTION , 1000 CC" completed 10/03/14 Encounters Encounter Location Date/Time Departed Emergency Room [facility] 11/23/14 10:12am Departed Emergency Room [facility] 10/03/14 10:07pm Recent Diagnosis
--- OUTSIDE RECORDS SUMMARY | 2016-11-28 14:38 | XMS REPORT | Continuity of Care Document ---
Author Author [facility] Organization [facility] Address Unknown Phone Unavailable Support Name Relationship Address Phone ELDA AMIN MD Caregiver [address] [place] [phone] ELIZABETH GARZA MD Caregiver [address] [place] [phone] VALENTINA PUTNAM Next Of Kin [address] [place], [place] [id number] Insurance Providers Payer Name Policy Number Subscriber Name Relationship Medicare [id number] Diana Brunson 16 Self Other A Insurance [id number] Diana Brunson 16 Self Advance Directives Directive Response Recorded Date/Time Advanced Directives Type Living Will DPOA for Healthcare 07/10/14 3:19pm Chief Complaint and Reason for Visit Chief Complaint Nausea,Vomiting,Diarrhea Reason for Visit Gastroenteritis [id number] Abdominal pain Problems Medical Problems Problem Onset [...] 2-3 TIMES A WK 05/04/1011/11 Discontinued Fish Oil/[place]-3 Fatty Acids 1 Cap PO NEEDED 05/07/10 [...] having problems relating to your bowels at [phone]. 2. Please call Dr[address] Alicea or return to the emergency room if you develope fevers, chills, chest pain, shortness of breath, abdominal pain, dizziness with standing, passing out. Condition at time of discharge: Good Good Good General Information: n/a Condition at time of discharge: Fair Plan of Care Discharge Date 06/23/14 4:05pm Disposition 01 DISCHARGED HOME, SELF-CARE Condition at Discharge Improved Instructions/Education Provided [place] Diet Nausea and Vomiting-Adult Prescriptions See Medications [...] F (96.8 - 99.1) Temperature (Calculated Celsius) 36.88928 degrees C (36.0 - 37.3) Pulse Rate [...] 12, 2010 9:33am LAB TEST FORM REQUEST [id number] - Lipase June 20, 2014 1:09am 138 [...] 10, 2014 3:50pm 12.3 % H 0-9.0 WE-Vpx-P-Type Natriuretic Peptide April 11, 2014 11:34am 715 [...] Has specimen been collected/obtained? Y Urine Specific [place] July 10, 2014 3:55pm 1.025 - Has [...] Escherichia Coli Name: DIANA BRUNSON Unit #: [id number] : 1935 Sex: F DISCHARGE SUMMARY Admit Date: 06/21/14 Report #: [id number] General Date Date DATE: 06/23/14 TIME: 11:05 [...] 78 year old woman who presented to [facility] on [facility]/20 for acute onset of [...] Prov:JAYME CALDWELL APRN 06/23/14 Gabapentin (Neurontin)600 Mg Vgccze056 Mg PO TID 30 Days Prov:JAYME CALDWELL APRN 06/23/14 Reported Medications Sotalol HCl (Sotalol)80 Mg Ddxgxg01 Mg PO BID 04/11/14 Hydrocodone/Acetaminophen ([place] 10-325 Tablet)1 Each Tablet1 Tab PO Q6H 04/11/14 Divalproex Sodium (Depakote)125 Mg Tablet.dr1 Tab PO BID 04/11/14 Omeprazole (Prilosec)20 Mg Capsule.dr1 Cap PO DAILY 04/11/14 Venlafaxine Hcl (Effexor)100 Mg Fanxcf87 Mg PO BID 03/24/14 Donepezil Hcl (Aricept)10 Mg Ppjuaj75 Mg PO HS 10/25/13 Meloxicam (Mobic)7.5 Mg Tablet7.5 Mg PO DAILY 10/22/12 Levothyroxine Sodium 125 Mcg Jlwefm975 Mcg PO DAILY 10/22/12 Simvastatin (Zocor)20 Mg Zfgwnp84 Mg PO HS Ref 0 05/07/10 Zolpidem Tartrate (Ambien)10 Mg Uifwmu49 Mg PO HS Ref 0 05/07/10 Discontinued [...] Encounters Encounter Location Date/Time Registered Emergency Room [facility] 07/10/14 2:48pm Discharged Inpatient [facility] 06/21/14 1:06pm Departed Emergency Room [facility] 05/06/14 9:40pm Discharged Inpatient [facility] 04/11/14 12:51pm Recent Diagnosis
--- OUTSIDE RECORDS SUMMARY | 2016-11-28 14:39 | XMS REPORT | Continuity of Care Document ---
Author Author [facility] Organization [facility] Address Unknown Phone Unavailable Support Name Relationship Address Phone TANNER HUANG MD Caregiver [address] [place] [address] [place] [address] ELDA TRACEY MD Caregiver [address] [place] [address] [place] [address] [phone] STEPHANE WARNER MD Caregiver [address] [place] [address] [place] [address] VALENTINA PUTNAM Next Of Kin [address] [place], [place] [id number] Insurance Providers Payer Name Policy Number Subscriber Name Relationship Medicare [id number] Diana Brunson 16 Self [place] [id number] Diana Brunson 16 Self Advance Directives Directive [...] 2-3 TIMES A WK 05/04/1011/11 Discontinued Fish Oil/[place]-3 Fatty Acids 1 Cap PO NEEDED 05/07/10 [...] F (96.8 - 99.1) Temperature (Calculated Celsius) 36.27771 degrees C (36.0 - 37.3) Temperature Source [...] 12, 2010 9:33am LAB TEST FORM REQUEST [id number] - Lipase March 24, 2014 3:00pm 181 [...] 12, 2014 4:12am 15.7 % H 0-9.0 AQ-Not-N-Type Natriuretic Peptide April 11, 2014 11:34am 715 [...] Has specimen been collected/obtained? Y Urine Specific [place] April 11, 2014 10:55am 1.020 - Has [...] Escherichia Coli Name: DIANA BRUNSON Unit #: [id number] : 1935 Sex: F Loc / Svc: ED DOS: 04/11/14 Signed Report #: [id number] DIAGNOSTIC IMAGING REPORT TYPE OF EXAM: CT [...] 03/24/14 Encounters Encounter Location Date/Time Discharged Inpatient [facility] 04/11/14 12:51pm Departed Emergency Room [facility] 03/24/14 2:48pm Recent Diagnosis Gait instability Nausea Gait instability CAD (coronary artery disease) Hypercholesterolemia Hypothyroidism GERD (gastroesophageal reflux disease) History of kidney stones Myoclonic jerking
--- OUTSIDE RECORDS SUMMARY | 2016-11-28 14:40 | XMS REPORT | Continuity of Care Document ---
Author Author [facility] Organization [facility] Address Unknown Phone Unavailable Support Name Relationship Address Phone TRISHA DHILLON MD Caregiver [address] [address] ELDA TRACEY MD Caregiver [address] [place] [phone] VALENTINA PUTNAM Next Of Kin [address] [place], [place] [address] Insurance Providers Payer Name Policy Number Subscriber Name Relationship Medicare [id number] Diana Brunson 16 Self [place] [id number] Diana Brunson 16 Self Advance Directives Directive [...] 2-3 TIMES A WK 05/04/1011/11 Discontinued Fish Oil/[place]-3 Fatty Acids 1 Cap PO NEEDED 05/07/10 [...] F (96.8 - 99.1) Temperature (Calculated Celsius) 36.96164 degrees C (36.0 - 37.3) Pulse Rate [...] 11:19am 31.7 sec - PTT performed at [facility], [address] [place] [address] MedicalDirector Santino Aguirre MD Alanine Aminotransferase (ALT/SGPT) [...] Has specimen been collected/obtained? Y Urine Specific [place] March 24, 2014 3:50pm 1.010 L - [...] 12, 2010 9:33am LAB TEST FORM REQUEST [id number] - EKG August 17, 2009 11:29pm Complete [...] Encounters Encounter Location Date/Time Departed Emergency Room [facility] 03/24/14 2:48pm Recent Diagnosis
--- OUTSIDE RECORDS SUMMARY | 2016-11-28 14:42 | XMS REPORT | Continuity of Care Document ---
Author Author [facility] Organization [facility] Address Unknown Phone Unavailable Support Name Relationship Address Phone FADY WHITE MD Caregiver [facility] [address] [place] [address] Unavailable ELDA TRACEY MD Caregiver [address] [place] [address] [place] [address] [phone] VALENTINA PUTNAM Next Of Kin [address] [place], [place] [address] Insurance Providers Payer Name Policy Number Subscriber Name Relationship Medicare [id number] Diana Brunson 16 Self [place] [id number] Diana Brunson 16 Self Chief Complaint and Reason for Visit Chief Complaint Female Urogenital Problems Reason for Visit [id number] Nausea Problems Medical Problems Problem Onset Date [...] 2-3 TIMES A WK 05/04/1011/11 Discontinued Fish Oil/[place]-3 Fatty Acids 1 Cap PO NEEDED 05/07/10 [...] Date 04/12/14 3:30pm Disposition 02 TO OBS [facility] Condition at Discharge Stable Instructions/Education Provided Myoclonus [...] F (96.8 - 99.1) Temperature (Calculated Celsius) 36.97120 degrees C (36.0 - 37.3) Pulse Rate [...] Has specimen been collected/obtained? Y Urine Specific [place] April 11, 2014 10:55am 1.020 - Has [...] 12, 2010 9:33am LAB TEST FORM REQUEST [id number] - EKG August 17, 2009 11:29pm Complete [...] Source April 12, 2010 9:18am Nasal - GX-Gbj-M-Type Natriuretic Peptide April 11, 2014 11:34am 715 [...] 2010 1:53pm Name: DIANA BRUNSON Unit #: [id number] : 1935 Sex: F Loc / Svc: ED DOS: 04/11/14 Signed Report #: [id number] DIAGNOSTIC IMAGING REPORT TYPE OF EXAM: CT [...] Encounters Encounter Location Date/Time Departed Emergency Room [facility] 05/06/14 9:40pm Discharged Inpatient [facility] 04/11/14 12:51pm Departed Emergency Room [facility] 03/24/14 2:48pm Recent Diagnosis
[2016-11-28] MEDS ORDERED: [UNRECOGNIZED DRUG - CODE] PO (15:10)
--- OUTSIDE RECORDS SUMMARY | 2016-11-28 15:23 | XMS REPORT | Continuity of Care Document ---
Author Author [facility] Organization [facility] Address Unknown Phone Unavailable Allergies Medications Problems Procedures Results Encounters ACCT No. Visit Date/Time Discharge Status Pt. Type Provider Facility Loc./Unit Complaint [id number] 11/21/2013 12:44:00 11/21/2013 23 :59:59 CLS Outpatient [id number] 11/07/2013 15:10:00 11/07/2013 23 :59:59 CLS Outpatient [id number] 11/05/2013 14:25:00 11/05/2013 23 :59:59 CLS Outpatient [id number] 10/17/2013 14:13:00 10/17/2013 23 :59:59 CLS Outpatient [id number] 10/15/2013 14:49:00 10/15/2013 23 :59:59 CLS Outpatient [id number] 09/24/2013 15:27:00 09/24/2013 23 :59:59 CLS Outpatient [id number] 09/09/2013 14:29:00 09/09/2013 23 :59:59 CLS Outpatient
--- OUTSIDE RECORDS SUMMARY | 2016-11-28 15:24 | XMS REPORT | Continuity of Care Document ---
Author Author [facility] Organization [facility] Address Unknown Phone Unavailable Support Name Relationship Address Phone ELDA TRACEY MD Caregiver [address] [place] [address] [place] [phone] STEPHANE WARNER MD Caregiver [address] [place] [phone] VALENTINA PUTNAM Next Of Kin [address] [place], [place] [address] Insurance Providers Payer Name Policy Number Subscriber Name Relationship Medicare [id number] Diana Brunson 18 Self Other A Insurance [id number] Diana Brunson 16 Self Advance Directives Directive [...] 2-3 TIMES A WK 05/04/1011/11 Discontinued Fish Oil/[place]-3 Fatty Acids 1 Cap PO NEEDED 05/07/10 [...] F (96.8 - 99.1) Temperature (Calculated Celsius) 36.50384 degrees C (36.0 - 37.3) Pulse Rate [...] 12, 2010 9:33am LAB TEST FORM REQUEST [id number] - Lipase June 20, 2014 1:09am 138 [...] 03, 2014 10:10pm 15.9 % H 0-9.0 PM-Nmv-G-Type Natriuretic Peptide October 03, 2014 10:10pm 863 [...] Has specimen been collected/obtained? Y Urine Specific [place] October 04, 2014 12:05am 1.025 - Has [...] completed 07/10/14 EMERGENCY DEPT VISIT completed 07/10/14 [id number] ITEM OR SERVICE completed 07/10/14 [id number]"INJECTION, HYDROMORPHONE, UP TO 4 MG" completed 07/10/14 594999"INFUSION, NORMAL SALINE SOLUTION , 1000 CC" completed 07/10/14 Encounters Encounter Location Date/Time Departed Emergency Room [facility] 10/03/14 10:07pm Departed Emergency Room [facility] 07/10/14 2:48pm Recent Diagnosis
--- OUTSIDE RECORDS SUMMARY | 2016-11-28 15:24 | XMS REPORT | Continuity of Care Document ---
Author Author [facility] Organization [facility] Address Unknown Phone Unavailable Support Name Relationship Address Phone VALENTINA PUTNAM Next Of Kin [address] [address] Unavailable Insurance Providers Payer Name Policy Number Subscriber Name Relationship Medicare [id number] Diana Brunson 16 Self [place] [id number] Diana Brunson 16 Self Problems No Known [...] Prednisone 10 Mg PO DAILY Hydrocodone Bit/Acetaminophen ([place] 7.5/325 Tablet) 1 Tab PO Q4HR Venlafaxine [...] 2010 9:20am 3-5 /HPF - Urine Specific [place] March 05, 2013 12:50pm 1.015 - Urine [...] indicated - Name: DIANA BRUNSON Unit #: [id number]
: 1935 Sex: F
Loc / Svc: MED Admit Date: 03/05/13
Signed Discharge Date:
DISCHARGE SUMMARY Report #: [id number]

General
Date
Date
DATE: 03/09/13
TIME: 13:07
[...] 10 Mg PO DAILY
12/27/12
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.54 05/04/10 PACKED CELL TRANSFUSION 99.04 05/07/10 AMBULAT & GAIT TRAINING 93.22 05/07/10 OCCUPATIONAL THERAPY 93.83 05/07/10 THER/PROPH/DIAG INJ IV PUSH 81763 07/30/10 TX/PRO/DX INJ NEW DRUG ADDON 36182 07/30/10 REMOVAL OF THYROID 48605 12/10/10 CONTROL OF NOSEBLEED 20030 01/02/11 THER/PROPH/DIAG INJ IV PUSH 77906 01/02/11 HYDRATE IV INFUSION ADD-ON 00388 01/02/11 CONTROL OF NOSEBLEED 19285 10/22/12 Blood Culture 03/05/13 Gram Stain 05/04/10 Urine Culture 03/05/13 Encounters Encounter Location Date/Time Discharged Inpatient [facility] 03/05/13 1:24pm Departed Emergency Room [facility] 10/22/12 7:19pm
--- OUTSIDE RECORDS SUMMARY | 2016-11-28 15:25 | XMS REPORT | Continuity of Care Document ---
Author Author [facility] Organization [facility] Address Unknown Phone Unavailable Support Name Relationship Address Phone ELDA TRACEY MD Caregiver [address] [place] [phone] ELIZABETH GARZA MD Caregiver [address] [place] [phone] VALENTINA PUTNAM Next Of Kin [address] [place], [place] [address] Insurance Providers Payer Name Policy Number Subscriber Name Relationship Medicare [id number] Diana Brunson 18 Self Other A Insurance [id number] Diana Brunson 18 Self Advance Directives Directive [...] 2-3 TIMES A WK 05/04/1011/11 Discontinued Fish Oil/[place]-3 Fatty Acids 1 Cap PO NEEDED 05/07/10 [...] F (96.8 - 99.1) Temperature (Calculated Celsius) 37.15707 degrees C (36.0 - 37.3) Pulse Rate [...] 12, 2010 9:33am LAB TEST FORM REQUEST [id number] - Lipase June 20, 2014 1:09am 138 [...] 03, 2014 10:10pm 15.9 % H 0-9.0 BD-Njv-A-Type Natriuretic Peptide October 03, 2014 10:10pm 863 [...] Has specimen been collected/obtained? Y Urine Specific [place] November 23, 2014 11:25am 1.015 - Has [...] Escherichia Coli Name: DIANA BRUNSON Unit #: [id number] : 1935 Sex: F Loc / Svc: ED DOS: 10/03/14 Signed Report #: [id number] DIAGNOSTIC IMAGING REPORT TYPE OF EXAM: CHEST [...] completed 10/03/14 EMERGENCY DEPT VISIT completed 10/03/14 [id number] ITEM OR SERVICE completed 10/03/14 [id number]"INFUSION, NORMAL SALINE SOLUTION , 1000 CC" completed 10/03/14 Encounters Encounter Location Date/Time Departed Emergency Room [facility] 11/23/14 10:12am Departed Emergency Room [facility] 10/03/14 10:07pm Recent Diagnosis
--- OUTSIDE RECORDS SUMMARY | 2016-11-28 15:25 | XMS REPORT | Continuity of Care Document ---
Author Author [facility] Organization [facility] Address Unknown Phone Unavailable Support Name Relationship Address Phone ELDA AMIN MD Caregiver [address] [place] [phone] ELIZABETH GARZA MD Caregiver [address] [place] [phone] VALENTINA PUTNAM Next Of Kin [address] [place], [place] [id number] Insurance Providers Payer Name Policy Number Subscriber Name Relationship Medicare [id number] Diana Brunson 18 Self Other A Insurance [id number] Diana Brunson 16 Self Advance Directives Directive Response Recorded Date/Time Advanced Directives Type Living Will DPOA for Healthcare 07/10/14 3:19pm Chief Complaint and Reason for Visit Chief Complaint Nausea,Vomiting,Diarrhea Reason for Visit Gastroenteritis [id number] Abdominal pain Problems Medical Problems Problem Onset [...] 2-3 TIMES A WK 05/04/1011/11 Discontinued Fish Oil/[place]-3 Fatty Acids 1 Cap PO NEEDED 05/07/10 [...] having problems relating to your bowels at [phone]. 2. Please call Dr[address] Alicea or return to the emergency room if you develope fevers, chills, chest pain, shortness of breath, abdominal pain, dizziness with standing, passing out. Condition at time of discharge: Good Good Good General Information: n/a Condition at time of discharge: Fair Plan of Care Discharge Date 06/23/14 4:05pm Disposition 01 DISCHARGED HOME, SELF-CARE Condition at Discharge Improved Instructions/Education Provided [place] Diet Nausea and Vomiting-Adult Prescriptions See Medications [...] F (96.8 - 99.1) Temperature (Calculated Celsius) 36.08611 degrees C (36.0 - 37.3) Pulse Rate [...] 12, 2010 9:33am LAB TEST FORM REQUEST [id number] - Lipase June 20, 2014 1:09am 138 [...] 10, 2014 3:50pm 12.3 % H 0-9.0 HD-Lpg-O-Type Natriuretic Peptide April 11, 2014 11:34am 715 [...] Has specimen been collected/obtained? Y Urine Specific [place] July 10, 2014 3:55pm 1.025 - Has [...] Escherichia Coli Name: DIANA BRUNSON Unit #: [id number] : 1935 Sex: F DISCHARGE SUMMARY Admit Date: 06/21/14 Report #: [id number] General Date Date DATE: 06/23/14 TIME: 11:05 [...] year old woman who presented to [facility] ED on 06/20 for acute onset of [...] Prov:JAYME CALDWELL APRN 06/23/14 Gabapentin (Neurontin)600 Mg Yvyxvt679 Mg PO TID 30 Days Prov:JAYME CALDWELL APRN 06/23/14 Reported Medications Sotalol HCl (Sotalol)80 Mg Rqkgpa25 Mg PO BID 04/11/14 Hydrocodone/Acetaminophen ([place] 10-325 Tablet)1 Each Tablet1 Tab PO Q6H 04/11/14 Divalproex Sodium (Depakote)125 Mg Tablet.dr1 Tab PO BID 04/11/14 Omeprazole (Prilosec)20 Mg Capsule.dr1 Cap PO DAILY 04/11/14 Venlafaxine Hcl (Effexor)100 Mg Wvulbd71 Mg PO BID 03/24/14 Donepezil Hcl (Aricept)10 Mg Tbsxbw63 Mg PO HS 10/25/13 Meloxicam (Mobic)7.5 Mg Tablet7.5 Mg PO DAILY 10/22/12 Levothyroxine Sodium 125 Mcg Fymblb960 Mcg PO DAILY 10/22/12 Simvastatin (Zocor)20 Mg Oeqzjm84 Mg PO HS Ref 0 05/07/10 Zolpidem Tartrate (Ambien)10 Mg Ivvmyi91 Mg PO HS Ref 0 05/07/10 Discontinued [...] Encounters Encounter Location Date/Time Registered Emergency Room [facility] 07/10/14 2:48pm Discharged Inpatient [facility] 06/21/14 1:06pm Departed Emergency Room [facility] 05/06/14 9:40pm Discharged Inpatient [facility] 04/11/14 12:51pm Recent Diagnosis
--- OUTSIDE RECORDS SUMMARY | 2016-11-28 15:25 | XMS REPORT | Continuity of Care Document ---
Author Author [facility] Organization [facility] Address Unknown Phone Unavailable Support Name Relationship Address Phone TANNER HUANG MD Caregiver [address] [place] [address] [place] [address] ELDA TRACEY MD Caregiver [address] [place] [address] [place] [address] [phone] STEPHANE WARNER MD Caregiver [address] [place] [address] [place] [address] VALENTINA PUTNAM Next Of Kin [address] [place], [place] [id number] Insurance Providers Payer Name Policy Number Subscriber Name Relationship Medicare [id number] Diana Brunson 18 Self [place] [id number] Diana Brunson 16 Self Advance Directives Directive [...] 2-3 TIMES A WK 05/04/1011/11 Discontinued Fish Oil/[place]-3 Fatty Acids 1 Cap PO NEEDED 05/07/10 [...] F (96.8 - 99.1) Temperature (Calculated Celsius) 36.67823 degrees C (36.0 - 37.3) Temperature Source [...] 12, 2010 9:33am LAB TEST FORM REQUEST [id number] - Lipase March 24, 2014 3:00pm 181 [...] 12, 2014 4:12am 15.7 % H 0-9.0 SZ-Nva-S-Type Natriuretic Peptide April 11, 2014 11:34am 715 [...] specimen been collected/obtained? Y Urine Specific [place] April 11, 2014 10:55am 1.020 - Has [...] Escherichia Coli Name: DIANA BRUNSON Unit #: [id number] : 1935 Sex: F Loc / Svc: ED DOS: 04/11/14 Signed Report #: [id number] DIAGNOSTIC IMAGING REPORT TYPE OF EXAM: CT [...] 03/24/14 Encounters Encounter Location Date/Time Discharged Inpatient [facility] 04/11/14 12:51pm Departed Emergency Room [facility] 03/24/14 2:48pm Recent Diagnosis Gait instability Nausea Gait instability CAD (coronary artery disease) Hypercholesterolemia Hypothyroidism GERD (gastroesophageal reflux disease) History of kidney stones Myoclonic jerking
--- OUTSIDE RECORDS SUMMARY | 2016-11-28 15:27 | XMS REPORT | Continuity of Care Document ---
Author Author [facility] Organization [facility] Address Unknown Phone Unavailable Support Name Relationship Address Phone TRISHA DHILLON MD Caregiver [address] [place] [address] ELDA TRACEY MD Caregiver [address] [place] [phone] VALENTINA PUTNAM Next Of Kin [address] [place], [place] [id number] Insurance Providers Payer Name Policy Number Subscriber Name Relationship Medicare [id number] Diana Brunson 16 Self [place] [id number] Diana Brunson 16 Self Advance Directives Directive [...] 2-3 TIMES A WK 05/04/1011/11 Discontinued Fish Oil/[place]-3 Fatty Acids 1 Cap PO NEEDED 05/07/10 [...] F (96.8 - 99.1) Temperature (Calculated Celsius) 36.54760 degrees C (36.0 - 37.3) Pulse Rate [...] 11:19am 31.7 sec - PTT performed at [facility] Reference Lab, [address] [place] [address] MedicalDirector Santino Aguirre MD Alanine Aminotransferase (ALT/SGPT) [...] Has specimen been collected/obtained? Y Urine Specific [place] March 24, 2014 3:50pm 1.010 L - [...] 12, 2010 9:33am LAB TEST FORM REQUEST [id number] - EKG August 17, 2009 11:29pm Complete [...] Encounters Encounter Location Date/Time Departed Emergency Room [facility] 03/24/14 2:48pm Recent Diagnosis
--- OUTSIDE RECORDS SUMMARY | 2016-11-28 15:28 | XMS REPORT | Continuity of Care Document ---
Author Author [facility] Organization [facility] Address Unknown Phone Unavailable Support Name Relationship Address Phone FADY WHITE MD Caregiver [facility] [address] [place] [place] [address] Unavailable ELDA TRACEY MD Caregiver [address] [place] [address] [place] [address] [phone] VALENTINA PUTNAM Next Of Kin [address] [place], [place] [id number] Insurance Providers Payer Name Policy Number Subscriber Name Relationship Medicare [id number] Diana Brunson 18 Self [place] [id number] Diana Brunson 16 Self Chief Complaint and Reason for Visit Chief Complaint Female Urogenital Problems Reason for Visit [id number] Nausea Problems Medical Problems Problem Onset Date [...] 2-3 TIMES A WK 05/04/1011/11 Discontinued Fish Oil/[place]-3 Fatty Acids 1 Cap PO NEEDED 05/07/10 [...] Date 04/12/14 3:30pm Disposition 02 TO OBS [facility] Condition at Discharge Stable [...] F (96.8 - 99.1) Temperature (Calculated Celsius) 36.85482 degrees C (36.0 - 37.3) Pulse Rate [...] Has specimen been collected/obtained? Y Urine Specific [place] April 11, 2014 10:55am 1.020 - Has [...] 12, 2010 9:33am LAB TEST FORM REQUEST [id number] - EKG August 17, 2009 11:29pm Complete [...] Source April 12, 2010 9:18am Nasal - SR-Ltj-Q-Type Natriuretic Peptide April 11, 2014 11:34am 715 [...] 2010 1:53pm Name: DIANA BRUNSON Unit #: [id number] : 1935 Sex: F Loc / Svc: ED DOS: 04/11/14 Signed Report #: [id number] DIAGNOSTIC IMAGING REPORT TYPE OF EXAM: CT [...] Encounter Location Date/Time Departed Emergency Room [facility] 05/06/14 9:40pm Discharged Inpatient [facility] 04/11/14 12:51pm Departed Emergency Room [facility] 03/24/14 2:48pm Recent Diagnosis
--- NOTE | 2016-11-28 15:33 | ERPDOC ---
Departure Disposition Decision Date: Nov 28, 2016 Disposition Decision Time: 15:25 Disposition: 01 DISCHARGED HOME, SELF-CARE Impression Impression Impression: Primary Impression: Nailbed injury Additional Impressions: Anticoagulated Nail abnormalities Severity: Moderate Condition: Stable Seen By: Physician only Referrals: ELDA TRACEY MD (Family) 1 Week Patient Instructions: Nail Avulsion (ED) Problems/Meds/Labs Reviewed?: Yes Medications reviewed and manag: Yes Additional Instructions: Home to rest. Do not wear closed toed shoe on the right foot for a week. Leave current dressing on there until Monday morning. Then may remove and replace with antibiotic ointment and Telfa (nonadherent dressing) and gauze pad and then Coban around the foot. Leave that dressing on until Monday. After that may leave open to the air. You need to follow up with your primary care doctor next week, or ask them for a referral to a entertainment director (foot doctor) such as Dr Valle. He can help with trimming your nails and calluses so that this does not happen again with any of your other nails. Tylenol if needed for discomfort. Need to follow up to get your INR checked to make sure that it is not too high. Follow up care ordered?: Yes Mental Status: Alert, Oriented HPI General Chief Complaint: Lower Extremity Injury Stated Complaint: PAINFUL FOOT( LOTS OF BLEEDING) Time Seen by Provider: 14:37 Source: patient, family (spouse), RN notes reviewed, old records Exam Limitations: no limitations HPI Foot/Ankle Initial Comments This patient comes in complaining of continued bleeding from her right foot. She had an injury and was seen for a traumatic avulsion of the 2nd toenail on her foot yesterday here at this facility. After she went home, it started oozing. They had a home health nurse come over and sejeff redressed it and put a pressure dressing with Coban on the foot. The toenail has continued to ooze and she was sent in to see if it needs to be cauterized. She is anticoagulated due to history of atrial fibrillation. Occurred At: home Onset: Gradual Pain Scale: Now: 3/10 Location: right: 2nd toe Method of Injury: direct blow Modifying Factors: WORSE WITH: movement Associated Symptoms: other (bleeding) Allergies: Coded Allergies: Penicillins (Verified Allergy, Severe, ANAPHYLACTIC-ENDED IN ICU FOR A DAY , 11/28/16) Iodinated Contrast Media - Oral and (Verified Allergy, Unknown, RASH,SOA, 11/28/16) Sulfa (Sulfonamide Antibiotics) (Verified Allergy, Unknown, RASH,ITCHY, ) fluoxetine (Verified Allergy, Unknown, 11/28/16) morphine (Verified Allergy, Unknown, 11/28/16) nitrofurantoin (Verified Allergy, Unknown, 11/28/16) aspirin (Verified Adverse Reaction, Intermediate, HIGH BP, SOA, 11/28/16) naproxen sodium (Verified Adverse Reaction, Intermediate, HIGH BP, SOA, ) metoclopramide (Verified Adverse Reaction, Unknown, 11/28/16) PT HAD REGLAN PREOPERATIVELY AND A REACTION THAT SHE WAS UNABLE TO DESCRIBE Past History Patient Surgical History Cholecystectomy Heart catheterization Foot surgery Knee surgery, right TKA Past Medical History Metabolic: hypercholesterolemia, hypertension, hypothyroidism Cardiac: A-fib, CAD GI: GERD, constipation Female: UTI, kidney stones Neurological: headaches Musculoskeletal: neck pain Psychological: depression Surgical History General: gallbladder Cardiac: cardiac cath Joint: foot, knee Family History Family PMH: FOUND: cancer Vaccines Hx Influenza Vaccination: No (unsure) Hx Pneumococcal Vaccination: No (unsure) Hx Tetanus, Diptheria, Pertuss: No Social History Smoking Status: Unknown if ever smoked Substance Use Type: does not use Alcohol Intake: none Marital Status: Sexuality: male partner Housing: house Current Occupational Status: retired Record Review Pertinent history updated: Yes Review of Systems Constitutional Constitutional: DENIES: appetite decrease, chills, dizziness, fever, weakness Eyes General: DENIES: pain Lids/Accessories: DENIES: erythema Vision: DENIES: blurring ENMT Ears: DENIES: pain Hearing: DENIES: hearing loss Balance: DENIES: vertigo Sinuses: DENIES: congestion, rhinorrhea Mouth/Throat: DENIES: sore throat Teeth: DENIES: pain Cardiovascular Cardiac: DENIES: chest pain Rhythm/Rate: DENIES: palpitations Vascular: DENIES: pedal edema, unilateral swelling Pulmonary Respiratory: DENIES: cough, dyspnea, sputum GI Upper Abdomen: DENIES: heartburn/indigestion, nausea, vomiting Lower Abdomen: DENIES: blood in stool, constipation, diarrhea General: DENIES: dysuria, hematuria Female: DENIES: vaginal discharge Musculoskeletal General: pain (right foot), see HPI, DENIES: joint pain Integumentary Skin: see HPI Comments oozing Neurological General: DENIES: headache, memory disturbances, seizures, syncope Psychiatric Psychiatric: DENIES: anxiety, depression Endocrine Endocrine: DENIES: heat/cold intolerance Hematologic/Lymphatic Hematologic/Lymphatic: easy bruising, DENIES: anemia Allergic/Immunological Allergic/Immunoligical: DENIES: hives All other Systems All Other Systems: Reviewed and Negative Exam General General Nourishment: well nourished, well developed, appears stated age, no acute distress General Body Habitus: well groomed Vital Signs: RN Vital Signs have been reviewed: Yes, Temperature: 98.1, Source : Oral, Heart Rate: 63, Respiratory Rate: 18, BP: 134/71, Pulse Oximetry: 95 Height (Feet): 5 Height (Inches): 5.00 Fastrak Foot/Ankle Foot/Ankle : Leg: Right Leg: NOT FOUND: contusion, deformity, discoloration, edema, swelling, tender Ankle: NOT FOUND: achilles tendon insertion, ecchymosis, swelling, tender lat. foot, tender lat. malleolus, tender med. malleolus, tender mid foot Foot: other (significant calluses on the plantar foot over the ball of the foot), NOT FOUND: atrophy, deformity, discoloration, numbness, swelling, tender 1st MTP joint, tender plantar fascia Toes: nail avulsion, other (long thickened toe nails all toes), NOT FOUND: cap refill <2 sec ea toe, decreased ROM, deformity, ecchymosis, erythema, subungual hematoma Posterior Tibial Pulse: 2+ Dorsalis Pedis Pulse: 2+ Comments patient presents with blood soaked dressing covering the entire bottom of the foot. After it is removed, there is noted to be fairly steady oozing from the nailbed of the 2nd toe. Neurologic RN Documented GCS Eye Opening: Verbal: Motor: Total: Differential Diagnoses Considering: Other (nailbed laceration, iatrogenic coagulopathy) Procedures Procedures Performed Procedures Performed: Other Procedure Detail Procedure Details Initially attempted to apply QR powder to the toe to stop the oozing, but this did not stop the bleeding. Digital block was then done with Bupivacaine 0.5% 4 cc. After adequate anesthesia was achieved, electrocautery was used to stop the bleeding. It was noted that the other nails on the foot were quite long. The 3rd through 5th nails were trimmed for the patient so that they do not catch and get torn off like the 2nd nail was. Calluses were trimmed back as well. Antibiotic ointment and Telfa with mild pressure dressing were then placed. Patient tolerated procedure well. Progress Progress Progress Hemostasis achieved with cautery. Patient advised that she needs a entertainment director to prevent this happening again in the future. Will need to have her INR checked as scheduled. Follow up with PCP about that. GURINDER DHILLON MD Nov 28, 2016 15:33
--- NOTE | 2016-11-28 15:55 | NUR ---
DISMISSAL NOTE DISMISSAL INSTRUCTIONS GIVEN TO PT. AND NO FURTHER QUESTIONS. ASSISTED PT. INTO WHEELCHAIR AND PT. LEFT ED PER WHEELCHAIR WITH .
[2016-11-28] MEDS ORDERED: NEOMYCIN/POLYM/BACITR OINT PACKET TOP ONE (16:00)
[2016-11-28] MEDS ORDERED: BUPIVACAINE 0.5% (5mg/ml) 30ml INJ SDV INJ ONE (16:00)
[2016-11-28 16:24] VITALS: BP 138/74; PULSE 56; RESP 20; O2SAT 98
== END 2016-11-28 16:24 | disposition home or self-care (01) ==
LOC: ED 14:31
DX: S91.204A Unspecified open wound of right lesser toe(s) with damage to nail, initial encounter (principal); Z79.01 Long term (current) use of anticoagulants; X58.XXXA Exposure to other specified factors, initial encounter; Y93.9 Activity, unspecified; Y92.009 Unspecified place in unspecified non-institutional (private) residence as the place of occurrence of the external cause; Y99.8 Other external cause status
CPT/HCPCS: 12001; 99283; A9270

== ENCOUNTER 2016-11-29 20:34 | Inpatient (IN) | payer MEDICARE, OTHER ==
[~2016-11-29] VITALS: Ht 165.1 cm; Wt 84.3 kg
[~2016-11-29 20:34] MED LIST changes: +[UNRECOGNIZED DRUG - CODE] PO
--- NOTE | 2016-11-29 20:34 | NUR ---
ROOM PATIENT TO THE ROOM VIA EMS COT
--- OUTSIDE RECORDS SUMMARY | 2016-11-29 20:38 | XMS REPORT | Continuity of Care Document ---
Author Author [facility] Organization [facility] Address Unknown Phone Unavailable Allergies Medications Problems Procedures Results Encounters ACCT No. Visit Date/Time Discharge Status Pt. Type Provider Facility Loc./Unit Complaint [id number] 11/21/2013 12:44:00 11/21/2013 23 :59:59 CLS Outpatient [id number] 11/07/2013 15:10:00 11/07/2013 23 :59:59 CLS Outpatient [id number] 11/05/2013 14:25:00 11/05/2013 23 :59:59 CLS Outpatient [id number] 10/17/2013 14:13:00 10/17/2013 23 :59:59 CLS Outpatient [id number] 10/15/2013 14:49:00 10/15/2013 23 :59:59 CLS Outpatient [id number] 09/24/2013 15:27:00 09/24/2013 23 :59:59 CLS Outpatient [id number] 09/09/2013 14:29:00 09/09/2013 23 :59:59 CLS Outpatient
--- OUTSIDE RECORDS SUMMARY | 2016-11-29 20:40 | XMS REPORT | Continuity of Care Document ---
Author Author [facility] Organization [facility] Address Unknown Phone Unavailable Support Name Relationship Address Phone VALENTINA PUTNAM Next Of Kin [address] [place] [address] Unavailable Insurance Providers Payer Name Policy Number Subscriber Name Relationship Medicare [id number] Diana Brunson 18 Self [place] [id number] Diana Brunson 16 Self Problems No Known [...] Prednisone 10 Mg PO DAILY Hydrocodone Bit/Acetaminophen ([place] 7.5/325 Tablet) 1 Tab PO Q4HR Venlafaxine [...] 2010 9:20am 3-5 /HPF - Urine Specific [place] March 05, 2013 12:50pm 1.015 - Urine [...] indicated - Name: DIANA BRUNSON Unit #: [id number]
: 1935 Sex: F
Loc / Svc: MED Admit Date: 03/05/13
Signed Discharge Date:
DISCHARGE SUMMARY Report #: [id number]

General
Date
Date
DATE: 03/09/13
TIME: 13:07
[...] multiple neurologists, last seeing Dr. Price in [facility]. She is
on Ultram and [...] 10 Mg PO DAILY
12/27/12
Hydrocodone Bit/Acetaminophen ([place] 7.5/325 Tablet) 1 Tab Tablet 1 Tab [...] 13:14 Procedures Procedure Code Date DIAGNOSTIC COLONOSCOPY 01207 06/30/09 TOTAL KNEE REPLACEMENT 81.54 05/04/10 PACKED CELL TRANSFUSION 99.04 05/07/10 AMBULAT & GAIT TRAINING 93.22 05/07/10 OCCUPATIONAL THERAPY 93.83 05/07/10 THER/PROPH/DIAG INJ IV PUSH 18258 07/30/10 TX/PRO/DX INJ NEW DRUG ADDON 65723 07/30/10 REMOVAL OF THYROID 33687 12/10/10 CONTROL OF NOSEBLEED 77685 01/02/11 THER/PROPH/DIAG INJ IV PUSH 29663 01/02/11 HYDRATE IV INFUSION ADD-ON 69021 01/02/11 CONTROL OF NOSEBLEED 64222 10/22/12 Blood Culture 03/05/13 Gram Stain 05/04/10 Urine Culture 03/05/13 Encounters Encounter Location Date/Time Discharged Inpatient [facility] 03/05/13 1:24pm Departed Emergency Room [facility] 10/22/12 7:19pm
--- OUTSIDE RECORDS SUMMARY | 2016-11-29 20:41 | XMS REPORT | Continuity of Care Document ---
Author Author [facility] Organization [facility] Address Unknown Phone Unavailable Support Name Relationship Address Phone ELDA TRACEY MD Caregiver [address] [place] [phone] STEPHANE WARNER MD Caregiver [address] [place] [phone] VALENTINA PUTNAM Next Of Kin [address] [place], [place] [id number] Insurance Providers Payer Name Policy Number Subscriber Name Relationship Medicare [id number] Diana Brunson 18 Self Other A Insurance [id number] Diana Brunson 16 Self Advance Directives Directive [...] 2-3 TIMES A WK 05/04/1011/11 Discontinued Fish Oil/[place]-3 Fatty Acids 1 Cap PO NEEDED 05/07/10 [...] F (96.8 - 99.1) Temperature (Calculated Celsius) 36.40922 degrees C (36.0 - 37.3) Pulse Rate [...] 12, 2010 9:33am LAB TEST FORM REQUEST [id number] - Lipase June 20, 2014 1:09am 138 [...] 03, 2014 10:10pm 15.9 % H 0-9.0 GJ-Rvp-N-Type Natriuretic Peptide October 03, 2014 10:10pm 863 [...] Has specimen been collected/obtained? Y Urine Specific [place] October 04, 2014 12:05am 1.025 - Has [...] completed 07/10/14 EMERGENCY DEPT VISIT completed 07/10/14 [id number] ITEM OR SERVICE completed 07/10/14 375160"INJECTION, HYDROMORPHONE, UP TO 4 MG" completed 07/10/14 [id number]"INFUSION, NORMAL SALINE SOLUTION , 1000 CC" completed 07/10/14 Encounters Encounter Location Date/Time Departed Emergency Room [facility] 10/03/14 10:07pm Departed Emergency Room [facility] 07/10/14 2:48pm Recent Diagnosis
--- OUTSIDE RECORDS SUMMARY | 2016-11-29 20:42 | XMS REPORT | Continuity of Care Document ---
Author Author [facility] Organization [facility]IVE Address Unknown Phone Unavailable Support Name Relationship Address Phone ELDA TRACEY MD Caregiver [address] [place] [phone] ELIZABETH GARZA MD Caregiver [address] [place] [phone] VALENTINA PUTNAM Next Of Kin [address] [place], [place] [id number] Insurance Providers Payer Name Policy Number Subscriber Name Relationship Medicare [id number] Diana Brunson 18 Self Other A Insurance [id number] Diana Brunson 16 Self Advance Directives Directive [...] 2-3 TIMES A WK 05/04/1011/11 Discontinued Fish Oil/[place]-3 Fatty Acids 1 Cap PO NEEDED 05/07/10 [...] F (96.8 - 99.1) Temperature (Calculated Celsius) 37.36374 degrees C (36.0 - 37.3) Pulse Rate [...] 12, 2010 9:33am LAB TEST FORM REQUEST [id number] - Lipase June 20, 2014 1:09am 138 [...] 03, 2014 10:10pm 15.9 % H 0-9.0 GY-Zte-B-Type Natriuretic Peptide October 03, 2014 10:10pm 863 [...] Has specimen been collected/obtained? Y Urine Specific [place] November 23, 2014 11:25am 1.015 - Has [...] Escherichia Coli Name: DIANA BRUNSON Unit #: [id number] : 1935 Sex: F Loc / Svc: ED DOS: 10/03/14 Signed Report #: [id number] DIAGNOSTIC IMAGING REPORT TYPE OF EXAM: CHEST [...] completed 10/03/14 EMERGENCY DEPT VISIT completed 10/03/14 [id number] ITEM OR SERVICE completed 10/03/14 [id number]"INFUSION, NORMAL SALINE SOLUTION , 1000 CC" completed 10/03/14 Encounters Encounter Location Date/Time Departed Emergency Room [facility] 11/23/14 10:12am Departed Emergency Room [facility] 10/03/14 10:07pm Recent Diagnosis
--- OUTSIDE RECORDS SUMMARY | 2016-11-29 20:42 | XMS REPORT | Continuity of Care Document ---
Author Author [facility]IVE Organization [facility]IVE Address Unknown Phone Unavailable Support Name Relationship Address Phone ELDA AMIN MD Caregiver [address] [place] [phone] ELIZABETH GARZA MD Caregiver [address] [place] [phone] VALENTINA PUTNAM Next Of Kin [address] [place], [place] [id number] Insurance Providers Payer Name Policy Number Subscriber Name Relationship Medicare [id number] Diana Brunson 18 Self Other A Insurance [id number] Diana Brunson 16 Self Advance Directives Directive Response Recorded Date/Time Advanced Directives Type Living Will DPOA for Healthcare 07/10/14 3:19pm Chief Complaint and Reason for Visit Chief Complaint Nausea,Vomiting,Diarrhea Reason for Visit Gastroenteritis [id number] Abdominal pain Problems Medical Problems Problem Onset [...] 2-3 TIMES A WK 05/04/1011/11 Discontinued Fish Oil/[place]-3 Fatty Acids 1 Cap PO NEEDED 05/07/10 [...] having problems relating to your bowels at [phone]. 2. Please call Dr[address] Alicea or return to the emergency room if you develope fevers, chills, chest pain, shortness of breath, abdominal pain, dizziness with standing, passing out. Condition at time of discharge: Good Good Good General Information: n/a Condition at time of discharge: Fair Plan of Care Discharge Date 06/23/14 4:05pm Disposition 01 DISCHARGED HOME, SELF-CARE Condition at Discharge Improved Instructions/Education Provided [place] Diet Nausea and Vomiting-Adult Prescriptions See Medications [...] F (96.8 - 99.1) Temperature (Calculated Celsius) 36.46564 degrees C (36.0 - 37.3) Pulse Rate [...] 12, 2010 9:33am LAB TEST FORM REQUEST [id number] - Lipase June 20, 2014 1:09am 138 [...] 10, 2014 3:50pm 12.3 % H 0-9.0 NB-Tdo-W-Type Natriuretic Peptide April 11, 2014 11:34am 715 [...] Has specimen been collected/obtained? Y Urine Specific [place] July 10, 2014 3:55pm 1.025 - Has [...] Escherichia Coli Name: DIANA BRUNSON Unit #: [id number] : 1935 Sex: F DISCHARGE SUMMARY Admit Date: 06/21/14 Report #: [id number] General Date Date DATE: 06/23/14 TIME: 11:05 [...] 78 year old woman who [place] [facility] [place] for acute onset of [...] Prov:JAYME CALDWELL APRN 06/23/14 Gabapentin (Neurontin)600 Mg Zdckqo366 Mg PO TID 30 Days Prov:JAYME CALDWELL APRN 06/23/14 Reported Medications Sotalol HCl (Sotalol)80 Mg Suimjm70 Mg PO BID 04/11/14 Hydrocodone/Acetaminophen ([place] 10-325 Tablet)1 Each Tablet1 Tab PO Q6H 04/11/14 Divalproex Sodium (Depakote)125 Mg Tablet.dr1 Tab PO BID 04/11/14 Omeprazole (Prilosec)20 Mg Capsule.dr1 Cap PO DAILY 04/11/14 Venlafaxine Hcl (Effexor)100 Mg Pnsurp53 Mg PO BID 03/24/14 Donepezil Hcl (Aricept)10 Mg Vtzlcp04 Mg PO HS 10/25/13 Meloxicam (Mobic)7.5 Mg Tablet7.5 Mg PO DAILY 10/22/12 Levothyroxine Sodium 125 Mcg Qyohan411 Mcg PO DAILY 10/22/12 Simvastatin (Zocor)20 Mg Tjjwgo27 Mg PO HS Ref 0 05/07/10 Zolpidem Tartrate (Ambien)10 Mg Odingf41 Mg PO HS Ref 0 05/07/10 Discontinued [...] Encounters Encounter Location Date/Time Registered Emergency Room [facility] 07/10/14 2:48pm Discharged Inpatient [facility] 06/21/14 1:06pm Departed Emergency Room [facility] 05/06/14 9:40pm Discharged Inpatient [facility] 04/11/14 12:51pm Recent Diagnosis
--- OUTSIDE RECORDS SUMMARY | 2016-11-29 20:43 | XMS REPORT | Continuity of Care Document ---
Author Author [facility] Organization [facility]IVE Address Unknown Phone Unavailable Support Name Relationship Address Phone TANNER HUANG MD Caregiver [address] [place] [address] [place] [address] ELDA TRACEY MD Caregiver [address] [place] [address] [place] [address] [phone] STEPHANE WARNER MD Caregiver [address] [place] [address] [place] [address] VALENTINA PUTNAM Next Of Kin [address] [place], [place] [address] Insurance Providers Payer Name Policy Number Subscriber Name Relationship Medicare [id number] Diana Brunson 16 Self [place] [id number] Diana Brunson 16 Self Advance Directives Directive [...] 2-3 TIMES A WK 05/04/1011/11 Discontinued Fish Oil/[place]-3 Fatty Acids 1 Cap PO NEEDED 05/07/10 [...] F (96.8 - 99.1) Temperature (Calculated Celsius) 36.30917 degrees C (36.0 - 37.3) Temperature Source [...] 12, 2010 9:33am LAB TEST FORM REQUEST [id number] - Lipase March 24, 2014 3:00pm 181 [...] 12, 2014 4:12am 15.7 % H 0-9.0 CB-Anj-N-Type Natriuretic Peptide April 11, 2014 11:34am 715 [...] Has specimen been collected/obtained? Y Urine Specific [place] April 11, 2014 10:55am 1.020 - Has [...] Escherichia Coli Name: DIANA BRUNSON Unit #: [id number] : 1935 Sex: F Loc / Svc: ED DOS: 04/11/14 Signed Report #: [id number] DIAGNOSTIC IMAGING REPORT TYPE OF EXAM: CT [...] 03/24/14 Encounters Encounter Location Date/Time Discharged Inpatient [facility] 04/11/14 12:51pm Departed Emergency Room [facility] 03/24/14 2:48pm Recent Diagnosis Gait instability Nausea Gait instability CAD (coronary artery disease) Hypercholesterolemia Hypothyroidism GERD (gastroesophageal reflux disease) History of kidney stones Myoclonic jerking
--- NOTE | 2016-11-29 20:45 | ERPDOC ---
Departure Disposition Decision Date: Nov 29, 2016 Disposition Decision Time: 22:14 Disposition: 02 [place] [facility] [place] Impression Impression: Primary Impression: Abdominal hematoma Encounter type: initial encounter Qualified Codes: S36.92XA - Contusion of unspecified intra-abdominal organ, initial encounter Severity: Moderate Condition: Stable Seen By: Mid-level only Referrals: ELDA TRACEY MD (Family) Problems/Meds/Labs Reviewed?: Yes Medications reviewed and manag: Yes Follow up care ordered?: Yes Mental Status: Alert HPI - Fall/Injury General Chief Complaint: Fall Stated Complaint: FALL Time Seen by Provider: 20:42 Source: patient, EMS Exam Limitations: no limitations HPI - Fall/Injury Initial Comments She was at home this evening and was transferring [facility] to the [facility]. Her was helping her and he was not able to keep her up. She did fall to the ground. He was able to get her up to the recliner. Noted that she was having increased pain on the left abdomen and a hematoma that was increasing in size. She does take Eliquis daily and has had several ER visits this month. Was evaluated in ER for epistaxis as well as persistent toe nail bleeding after traumatic toe nail removal at home. She does deny any other pain or injury. Occurred At: home Onset: Rapid Duration: 1 hr Severity: moderate Injuries/Pain Location: abdomen (left side) Context: other (Was transferring from to [facility] and legs gave out) Loss of Consciousness: no loss of consciousness Associated Symptoms: abdominal pain, trouble walking, DENIES: chest pain, confusion, dizziness, headache, lightheadedness, muscle spasms, nausea/vomiting , neck pain, ringing in ears, seizures, shortness of breath, slurred speech, vision changes Hx of Similar Symptoms: No Allergies: Coded Allergies: Penicillins (Verified Allergy, Severe, ANAPHYLACTIC-ENDED IN ICU FOR A DAY , 11/28/16) Iodinated Contrast Media - Oral and (Verified Allergy, Unknown, RASH,SOA, 11/28/16) Sulfa (Sulfonamide Antibiotics) (Verified Allergy, Unknown, RASH,ITCHY, ) fluoxetine (Verified Allergy, Unknown, 11/28/16) morphine (Verified Allergy, Unknown, 11/28/16) nitrofurantoin (Verified Allergy, Unknown, 11/28/16) aspirin (Verified Adverse Reaction, Intermediate, HIGH BP, SOA, 11/28/16) naproxen sodium (Verified Adverse Reaction, Intermediate, HIGH BP, SOA, ) metoclopramide (Verified Adverse Reaction, Unknown, 11/28/16) PT HAD REGLAN PREOPERATIVELY AND A REACTION THAT SHE WAS UNABLE TO DESCRIBE Past History Patient Surgical History Cholecystectomy Heart catheterization Foot surgery Knee surgery, right TKA Past Medical History Metabolic: hypercholesterolemia, hypertension, hypothyroidism Cardiac: A-fib, CAD GI: GERD, constipation Female: UTI, kidney stones Neurological: headaches Musculoskeletal: neck pain Psychological: depression Surgical History General: gallbladder Cardiac: cardiac cath Joint: foot, knee Family History Family PMH: FOUND: cancer Vaccines Hx Influenza Vaccination: No (unsure) Hx Pneumococcal Vaccination: No (unsure) Hx Tetanus, Diptheria, Pertuss: No Social History Substance Use Type: does not use Alcohol Intake: none Marital Status: Sexuality: male partner Housing: house Current Occupational Status: retired Review of Systems Constitutional Constitutional: weakness, DENIES: chills, dizziness, fatigue, fever Cardiovascular Cardiac: DENIES: chest pain, orthopnea Rhythm/Rate: DENIES: irregular beat, palpitations Pulmonary Respiratory: DENIES: cough, dyspnea, sputum, tachypnea GI Upper Abdomen: pain, DENIES: nausea, vomiting Lower Abdomen: pain, DENIES: constipation, diarrhea Musculoskeletal General: DENIES: pain Integumentary Skin: color change (large swollen firm area on the left abdomen) Neurological General: DENIES: headache, numbness, tingling, weakness Physical Exam General General Nourishment: well nourished, well developed, appears stated age, no acute distress, adult General Body Habitus: well groomed Vitals and Pain First Documented Vital Signs Date Time Temp Pulse Resp B/P Pulse Ox O2 Delivery O2 Flow Rate FiO2 11/29/16 20:35 97.8 59 14 97/54 92 Room Air Weight: Kilograms: Height (feet): 5 Height (inches): 5.00 Triage Pain Scale: RN VS reviewed by Provider: Yes Normal Exams: Neck: Full range of motion, without adenopathy, JVD, bruits or thyromegaly Chest/Resp: Clear all santiago, with good airflow, and symmetry bilaterally CV: Regular rate and rhythm, without murmur or gallop, Pulses 2+ all extremities, capillary refill, <2 seconds all ext., no pedal edema noted Lymphatic: No lymphadenopathy, or lymphedema noted Neurologic: Patient is alert, and oriented Psychiatric: Patient exhibits, appropriate attention, emotion and affect Abdomen Inspection: NOT FOUND: distention Palpation: FOUND: soft, tender (She has a slightly larger than softball sized area on the left abdomen that is tender and firm to touch. Slightly ecchymotic in this region as well. ) Auscultation: FOUND: normoactive Differential Diagnoses Considering: Contusion, Other (Hematoma, organ rupture) Progress Results/Orders Orders Procedure Category Date Status Time Case Management CONS 11/29/16 Transmitted Consult Cmp - Comprehensive LAB 11/29/16 Complete Metabolic Iv Lock (Ed Only) EDM 11/29/16 Transmitted 20:42 Cbc W/Auto LAB 11/29/16 Complete Diff-Reflex Manual Ct Abd/Pelvis W/O CT 11/29/16 Taken Contrast INR LAB 11/29/16 Complete Normal Saline (Normal PHA 11/29/16 In Process Saline Iv) 21:00 Lab Results Laboratory Tests Test 11/29/16 20:55 White Blood Count 4.2T/MM3 Red Blood Count 3.33M/MM3 Hemoglobin 10.6GM/DL Hematocrit 32.9% Mean Corpuscular Volume 98.8UM3 Mean Corpuscular Hemoglobin 31.8UUG Mean Corpuscular Hemoglobin Concent 32.2GM/DL RDW Standard Deviation 49.2FL Platelet Count 225T/MM3 Mean Platelet Volume 9.7UM3 Immature Granulocyte % (Auto) 0.5% Neutrophils (%) (Auto) 54.7% Lymphocytes (%) (Auto) 27.8% Monocytes (%) (Auto) 14.8% Eosinophils (%) (Auto) 1.7% Basophils (%) (Auto) 0.5% Absolute Immature Granulocyte (auto 0.02T/MM3 Absolute Neutrophils (auto) 2.3T/MM3 Absolute Lymphocytes (auto) 1.2T/MM3 Absolute Monocytes (auto) 0.6T/MM3 Absolute Eosinophils (auto) 0.1T/MM3 Absolute Basophils (auto) 0.0T/MM3 Prothromb Time International Ratio 1.16 Turbidity < 20 Sodium Level 131MEQ/L Potassium Level 4.9MEQ/L Chloride Level 94MEQ/L Carbon Dioxide Level 31MEQ/L Anion Gap 6MEQ/L Blood Urea Nitrogen 22.0MG/DL Creatinine 0.8MG/DL Glomerular Filtration Rate Calc 69 BUN/Creatinine Ratio 28RATIO Glucose Level 98MG/DL Calculated Osmolality 256MOSM/KG Calcium Level 8.6MG/DL Total Bilirubin 0.50MG/DL Icterus Index < 2 Aspartate Amino Transf (AST/SGOT) 23U/L Alanine Aminotransferase (ALT/SGPT) 17U/L Alkaline Phosphatase 57U/L Total Protein 6.2G/DL Albumin 3.5G/DL Globulin 2.7G/DL Albumin/Globulin Ratio 1.3RATIO Chemistry Specimen Hemolysis < 15 Medications Current ED Medications Sodium Chloride (Normal Saline IV) 1,000 ml @ 500 mls/hr Q2H ONCE IV Last administered on 11/29/16t 21:09; Start 11/29/16 at 21:00; Stop 11/29/16 at 22:59 Progress Progress 2100-b/p noted to be hypotensive at 78/53. IVF initiated. She is alert and talkative and in NAD. EMS had given 100mcg of Fentanyl and she was pretty sedated from that during transport. CT does show large soft tissue hematoma of the left flank. B/P is up to 106 systolic with IVF. Pulse has remained in the 60s. Given that this is her 3rd visit for bleeding related c/o and the size of the hematoma and low b/ps I am more comfortable with having Diana stay OBS tonight. Hgb is 10.6 which is down from 12.1 on 11/25. Discussed HPI, labs, CT, and exam with Dr. Rodriguez she will admit at this time. CT CT : Reason for Exam: left abd hematoma CT: Abd/Pelvis no contrast Interpretation: Abnormal (large soft tissue hematoma of left flank) KRISTINA SAENZ APRN Nov 29, 2016 20:45
--- OUTSIDE RECORDS SUMMARY | 2016-11-29 20:45 | XMS REPORT | Continuity of Care Document ---
Author Author [facility] Organization [facility]IVE Address Unknown Phone Unavailable Support Name Relationship Address Phone TRISHA DHILLON MD Caregiver [address] [place] [address] ELDA TRACEY MD Caregiver [address] [place] [phone] VALENTINA PUTNAM Next Of Kin [address] [place], [place] [id number] Insurance Providers Payer Name Policy Number Subscriber Name Relationship Medicare [id number] Diana Brunson 16 Self [place] [id number] Diana Brunson 16 Self Advance Directives Directive [...] 2-3 TIMES A WK 05/04/1011/11 Discontinued Fish Oil/[place]-3 Fatty Acids 1 Cap PO NEEDED 05/07/10 [...] 11:19am 31.7 sec - PTT performed at [facility] Reference Lab, [address] [place] [address] MedicalDirector Santino Aguirre MD Alanine Aminotransferase (ALT/SGPT) [...] Has specimen been collected/obtained? Y Urine Specific [place] March 24, 2014 3:50pm 1.010 L - [...] 12, 2010 9:33am LAB TEST FORM REQUEST [id number] - EKG August 17, 2009 11:29pm Complete [...] Encounters Encounter Location Date/Time Departed Emergency Room [facility] 03/24/14 2:48pm Recent Diagnosis
--- OUTSIDE RECORDS SUMMARY | 2016-11-29 20:46 | XMS REPORT | Continuity of Care Document ---
Author Author [facility] Organization [facility] Address Unknown Phone Unavailable Support Name Relationship Address Phone FADY WHITE MD Caregiver [facility] [address] [place] [address] Unavailable ELDA TRACEY MD Caregiver [address] [place] [address] [place] [address] [phone] VALENTINA PUTNAM Next Of Kin [address] [place], [place] [id number] Insurance Providers Payer Name Policy Number Subscriber Name Relationship Medicare [id number] Diana Brunson 16 Self [place] [id number] Diana Brunson 16 Self Chief Complaint and Reason for Visit Chief Complaint Female Urogenital Problems Reason for Visit [id number] Nausea Problems Medical Problems Problem Onset Date [...] 2-3 TIMES A WK 05/04/1011/11 Discontinued Fish Oil/[place]-3 Fatty Acids 1 Cap PO NEEDED 05/07/10 [...] Date 04/12/14 3:30pm Disposition 02 TO O[place] [facility] Condition at Discharge Stable Instructions/Education Provided Myoclonus [...] F (96.8 - 99.1) Temperature (Calculated Celsius) 36.40228 degrees C (36.0 - 37.3) Pulse Rate [...] Has specimen been collected/obtained? Y Urine Specific [place] April 11, 2014 10:55am 1.020 - Has [...] 12, 2010 9:33am LAB TEST FORM REQUEST [id number] - EKG August 17, 2009 11:29pm Complete [...] Source April 12, 2010 9:18am Nasal - BF-Sxt-R-Type Natriuretic Peptide April 11, 2014 11:34am 715 [...] 2010 1:53pm Name: DIANA BRUNSON Unit #: [id number] : 1935 Sex: F Loc / Svc: ED DOS: 04/11/14 Signed Report #: [id number] DIAGNOSTIC IMAGING REPORT TYPE OF EXAM: CT [...] Encounters Encounter Location Date/Time Departed Emergency Room [facility] 05/06/14 9:40pm Discharged Inpatient [facility] 04/11/14 12:51pm Departed Emergency Room [facility] 03/24/14 2:48pm Recent Diagnosis
--- OUTSIDE RECORDS SUMMARY | 2016-11-29 20:47 | XMS REPORT | Continuity of Care Document ---
Author Author [facility] Organization [facility] Address Unknown Phone Unavailable Allergies Medications Problems Procedures Results Encounters ACCT No. Visit Date/Time Discharge Status Pt. Type Provider Facility Loc./Unit Complaint [id number] 11/21/2013 12:44:00 11/21/2013 23 :59:59 CLS Outpatient [id number] 11/07/2013 15:10:00 11/07/2013 23 :59:59 CLS Outpatient [id number] 11/05/2013 14:25:00 11/05/2013 23 :59:59 CLS Outpatient [id number] 10/17/2013 14:13:00 10/17/2013 23 :59:59 CLS Outpatient [id number] 10/15/2013 14:49:00 10/15/2013 23 :59:59 CLS Outpatient [id number] 09/24/2013 15:27:00 09/24/2013 23 :59:59 CLS Outpatient [id number] 09/09/2013 14:29:00 09/09/2013 23 :59:59 CLS Outpatient
--- OUTSIDE RECORDS SUMMARY | 2016-11-29 20:48 | XMS REPORT | Continuity of Care Document ---
Author Author [facility] Organization [facility] Address Unknown Phone Unavailable Support Name Relationship Address Phone VALENTINA PUTNAM Next Of Kin [address] [place] [address] Unavailable Insurance Providers Payer Name Policy Number Subscriber Name Relationship Medicare [id number] Diana Brunson 18 Self [place] [id number] Diana Brunson 16 Self Problems No Known [...] Prednisone 10 Mg PO DAILY Hydrocodone Bit/Acetaminophen ([place] 7.5/325 Tablet) 1 Tab PO Q4HR Venlafaxine [...] 2010 9:20am 3-5 /HPF - Urine Specific [place] March 05, 2013 12:50pm 1.015 - Urine [...] indicated - Name: DIANA BRUNSON Unit #: [id number]
: 1935 Sex: F
Loc / Svc: MED Admit Date: 03/05/13
Signed Discharge Date:
DISCHARGE SUMMARY Report #: [id number]

General
Date
Date
DATE: 03/09/13
TIME: 13:07
[...] multiple neurologists, last seeing Dr. Price in [facility]. She is
on Ultram and Lortab [...] 10 Mg PO DAILY
12/27/12
Hydrocodone Bit/Acetaminophen ([place] 7.5/325 Tablet) 1 Tab Tablet 1 Tab [...] 13:14 Procedures Procedure Code Date DIAGNOSTIC COLONOSCOPY 88685 06/30/09 TOTAL KNEE REPLACEMENT 81.54 05/04/10 PACKED CELL TRANSFUSION 99.04 05/07/10 AMBULAT & GAIT TRAINING 93.22 05/07/10 OCCUPATIONAL THERAPY 93.83 05/07/10 THER/PROPH/DIAG INJ IV PUSH 56075 07/30/10 TX/PRO/DX INJ NEW DRUG ADDON 47803 07/30/10 REMOVAL OF THYROID 42915 12/10/10 CONTROL OF NOSEBLEED 62502 01/02/11 THER/PROPH/DIAG INJ IV PUSH 59539 01/02/11 HYDRATE IV INFUSION ADD-ON 52485 01/02/11 CONTROL OF NOSEBLEED 21291 10/22/12 Blood Culture 03/05/13 Gram Stain 05/04/10 Urine Culture 03/05/13 Encounters Encounter Location Date/Time Discharged Inpatient [facility] 03/05/13 1:24pm Departed Emergency Room [facility] 10/22/12 7:19pm
--- OUTSIDE RECORDS SUMMARY | 2016-11-29 20:48 | XMS REPORT | Continuity of Care Document ---
Author Author [facility] Organization [facility] Address Unknown Phone Unavailable Support Name Relationship Address Phone ELDA TRACEY MD Caregiver [address] [place] [phone] STEPHANE WARNER MD Caregiver [address] [place] [phone] VALENTINA PUTNAM Next Of Kin [address] [place], [place] [id number] Insurance Providers Payer Name Policy Number Subscriber Name Relationship Medicare [id number] Diana Brunson 18 Self Other A Insurance [id number] Diana Brunson 16 Self Advance Directives Directive [...] 2-3 TIMES A WK 05/04/1011/11 Discontinued Fish Oil/[place]-3 Fatty Acids 1 Cap PO NEEDED 05/07/10 [...] F (96.8 - 99.1) Temperature (Calculated Celsius) 36.16333 degrees C (36.0 - 37.3) Pulse Rate [...] 12, 2010 9:33am LAB TEST FORM REQUEST [id number] - Lipase June 20, 2014 1:09am 138 [...] 03, 2014 10:10pm 15.9 % H 0-9.0 UB-Gno-G-Type Natriuretic Peptide October 03, 2014 10:10pm 863 [...] Has specimen been collected/obtained? Y Urine Specific [place] October 04, 2014 12:05am 1.025 - Has [...] completed 07/10/14 EMERGENCY DEPT VISIT completed 07/10/14 [id number] ITEM OR SERVICE completed 07/10/14 [id number]"INJECTION, HYDROMORPHONE, UP TO 4 MG" completed 07/10/14 257023"INFUSION, NORMAL SALINE SOLUTION , 1000 CC" completed 07/10/14 Encounters Encounter Location Date/Time Departed Emergency Room [facility] 10/03/14 10:07pm Departed Emergency Room [facility] 07/10/14 2:48pm Recent Diagnosis
--- OUTSIDE RECORDS SUMMARY | 2016-11-29 20:49 | XMS REPORT | Continuity of Care Document ---
Author Author [facility] LIVE Organization [facility] LIVE Address Unknown Phone Unavailable Support Name Relationship Address Phone ELDA TRACEY MD Caregiver [address] [place] [phone] ELIZABETH GARZA MD Caregiver [address] [place] [phone] VALENTINA PUTNAM Next Of Kin [address] [place], [place] [address] Insurance Providers Payer Name Policy Number Subscriber Name Relationship Medicare [id number] Diana Brunson 18 Self Other A Insurance [id number] Diana Brunson 18 Self Advance Directives Directive [...] 2-3 TIMES A WK 05/04/1011/11 Discontinued Fish Oil/[place]-3 Fatty Acids 1 Cap PO NEEDED 05/07/10 [...] F (96.8 - 99.1) Temperature (Calculated Celsius) 37.77873 degrees C (36.0 - 37.3) Pulse Rate [...] 12, 2010 9:33am LAB TEST FORM REQUEST [id number] - Lipase June 20, 2014 1:09am 138 [...] 03, 2014 10:10pm 15.9 % H 0-9.0 RD-Mwq-M-Type Natriuretic Peptide October 03, 2014 10:10pm 863 [...] Has specimen been collected/obtained? Y Urine Specific [place] November 23, 2014 11:25am 1.015 - Has [...] Escherichia Coli Name: DIANA BRUNSON Unit #: [id number] : 1935 Sex: F Loc / Svc: ED DOS: 10/03/14 Signed Report #: [id number] DIAGNOSTIC IMAGING REPORT TYPE OF EXAM: CHEST [...] completed 10/03/14 EMERGENCY DEPT VISIT completed 10/03/14 [id number] ITEM OR SERVICE completed 10/03/14 [id number]"INFUSION, NORMAL SALINE SOLUTION , 1000 CC" completed 10/03/14 Encounters Encounter Location Date/Time Departed Emergency Room [facility] 11/23/14 10:12am Departed Emergency Room [facility] 10/03/14 10:07pm Recent Diagnosis
--- OUTSIDE RECORDS SUMMARY | 2016-11-29 20:49 | XMS REPORT | Continuity of Care Document ---
Author Author [facility] LIVE Organization [facility]IVE Address Unknown Phone Unavailable Support Name Relationship Address Phone ELDA AMIN MD Caregiver [address] [place] [phone] ELIZABETH GARZA MD Caregiver [address] [place] [place] [phone] VALENTINA PUTNAM Next Of Kin [address] [place], [place] [address] Insurance Providers Payer Name Policy Number Subscriber Name Relationship Medicare [id number] Diana Brunson 18 Self Other A Insurance [id number] Diana Brunson 18 Self Advance Directives Directive Response Recorded Date/Time Advanced Directives Type Living Will DPOA for Healthcare 07/10/14 3:19pm Chief Complaint and Reason for Visit Chief Complaint Nausea,Vomiting,Diarrhea Reason for Visit Gastroenteritis [id number] Abdominal pain Problems Medical Problems Problem Onset [...] 2-3 TIMES A WK 05/04/1011/11 Discontinued Fish Oil/[place]-3 Fatty Acids 1 Cap PO NEEDED 05/07/10 [...] having problems relating to your bowels at [phone]. 2. Please call Dr[address] Alicea or return to the emergency room if you develope fevers, chills, chest pain, shortness of breath, abdominal pain, dizziness with standing, passing out. Condition at time of discharge: Good Good Good General Information: n/a Condition at time of discharge: Fair Plan of Care Discharge Date 06/23/14 4:05pm Disposition 01 DISCHARGED HOME, SELF-CARE Condition at Discharge Improved Instructions/Education Provided [place] Diet Nausea and Vomiting-Adult Prescriptions See Medications [...] F (96.8 - 99.1) Temperature (Calculated Celsius) 36.42720 degrees C (36.0 - 37.3) Pulse Rate [...] 12, 2010 9:33am LAB TEST FORM REQUEST [id number] - Lipase June 20, 2014 1:09am 138 [...] 10, 2014 3:50pm 12.3 % H 0-9.0 KR-Ogm-T-Type Natriuretic Peptide April 11, 2014 11:34am 715 [...] Has specimen been collected/obtained? Y Urine Specific [place] July 10, 2014 3:55pm 1.025 - Has [...] Escherichia Coli Name: DIANA BRUNSON Unit #: [id number] : 1935 Sex: F DISCHARGE SUMMARY Admit Date: 06/21/14 Report #: [id number] General Date Date DATE: 06/23/14 TIME: 11:05 [...] 78 year old woman who presented to [facility] ED on 06/20 [...] Prov:JAYME CALDWELL APRN 06/23/14 Gabapentin (Neurontin)600 Mg Csqxkd059 Mg PO TID 30 Days Prov:JAYME CALDWELL APRN 06/23/14 Reported Medications Sotalol HCl (Sotalol)80 Mg Gflyxz27 Mg PO BID 04/11/14 Hydrocodone/Acetaminophen ([place] 10-325 Tablet)1 Each Tablet1 Tab PO Q6H 04/11/14 Divalproex Sodium (Depakote)125 Mg Tablet.dr1 Tab PO BID 04/11/14 Omeprazole (Prilosec)20 Mg Capsule.dr1 Cap PO DAILY 04/11/14 Venlafaxine Hcl (Effexor)100 Mg Tijwfz90 Mg PO BID 03/24/14 Donepezil Hcl (Aricept)10 Mg Bgbvjz22 Mg PO HS 10/25/13 Meloxicam (Mobic)7.5 Mg Tablet7.5 Mg PO DAILY 10/22/12 Levothyroxine Sodium 125 Mcg Azucuq614 Mcg PO DAILY 10/22/12 Simvastatin (Zocor)20 Mg Lamksh54 Mg PO HS Ref 0 05/07/10 Zolpidem Tartrate (Ambien)10 Mg Fhbxfq16 Mg PO HS Ref 0 05/07/10 Discontinued [...] Encounters Encounter Location Date/Time Registered Emergency Room [facility] 07/10/14 2:48pm Discharged Inpatient [facility] 06/21/14 1:06pm Departed Emergency Room [facility] 05/06/14 9:40pm Discharged Inpatient [facility] 04/11/14 12:51pm Recent Diagnosis
--- OUTSIDE RECORDS SUMMARY | 2016-11-29 20:49 | XMS REPORT | Continuity of Care Document ---
Author Author [facility] LIVE Organization [facility]IVE Address Unknown Phone Unavailable Support Name Relationship Address Phone TANNER HUANG MD Caregiver [address] [place] [address] [place] [address] ELDA TRACEY MD Caregiver [address] [place] [address] [place] [address] [phone] STEPHANE WARNER MD Caregiver [address] [place] [address] [place] [address] VALENTINA PUTNAM Next Of Kin [address] [place], [place] [id number] Insurance Providers Payer Name Policy Number Subscriber Name Relationship Medicare [id number] Diana Brunson 18 Self [place] [id number] Diana Brunson 18 Self Advance Directives Directive [...] 2-3 TIMES A WK 05/04/1011/11 Discontinued Fish Oil/[place]-3 Fatty Acids 1 Cap PO NEEDED 05/07/10 [...] F (96.8 - 99.1) Temperature (Calculated Celsius) 36.90627 degrees C (36.0 - 37.3) Temperature Source [...] 12, 2010 9:33am LAB TEST FORM REQUEST [id number] - Lipase March 24, 2014 3:00pm 181 [...] 12, 2014 4:12am 15.7 % H 0-9.0 NI-Wla-W-Type Natriuretic Peptide April 11, 2014 11:34am 715 [...] Has specimen been collected/obtained? Y Urine Specific [place] April 11, 2014 10:55am 1.020 - Has [...] Escherichia Coli Name: DIANA BRUNSON Unit #: [id number] : 1935 Sex: F Loc / Svc: ED DOS: 04/11/14 Signed Report #: [id number] DIAGNOSTIC IMAGING REPORT TYPE OF EXAM: CT [...] 03/24/14 Encounters Encounter Location Date/Time Discharged Inpatient [facility] 04/11/14 12:51pm Departed Emergency Room [facility] 03/24/14 2:48pm Recent Diagnosis Gait instability Nausea Gait instability CAD (coronary artery disease) Hypercholesterolemia Hypothyroidism GERD (gastroesophageal reflux disease) History of kidney stones Myoclonic jerking
--- OUTSIDE RECORDS SUMMARY | 2016-11-29 20:51 | XMS REPORT | Continuity of Care Document ---
Author Author [facility] LIVE Organization [facility]IVE Address Unknown Phone Unavailable Support Name Relationship Address Phone TRISHA DHILLON MD Caregiver [address] [place] [address] ELDA TRACEY MD Caregiver [address] [place] [phone] VALENTINA PUTNAM Next Of Kin [address] [place], [place] [id number] Insurance Providers Payer Name Policy Number Subscriber Name Relationship Medicare [id number] Diana Brunson 18 Self [place] [id number] Diana Brunson 18 Self Advance Directives Directive [...] 2-3 TIMES A WK 05/04/1011/11 Discontinued Fish Oil/[place]-3 Fatty Acids 1 Cap PO NEEDED 05/07/10 [...] F (96.8 - 99.1) Temperature (Calculated Celsius) 36.88906 degrees C (36.0 - 37.3) Pulse Rate [...] 11:19am 31.7 sec - PTT performed at [facility] Reference [facility], [address] [place] [address] MedicalDirector Santino Aguirre MD Alanine Aminotransferase (ALT/SGPT) [...] Has specimen been collected/obtained? Y Urine Specific [place] March 24, 2014 3:50pm 1.010 L - [...] 12, 2010 9:33am LAB TEST FORM REQUEST [id number] - EKG August 17, 2009 11:29pm Complete [...] Encounters Encounter Location Date/Time Departed Emergency Room [facility] 03/24/14 2:48pm Recent Diagnosis
--- OUTSIDE RECORDS SUMMARY | 2016-11-29 20:52 | XMS REPORT | Continuity of Care Document ---
Author Author [facility] Organization [facility] Address Unknown Phone Unavailable Support Name Relationship Address Phone FADY WHITE MD Caregiver [facility] [address] [place] [address] Unavailable ELDA TRACEY MD Caregiver [address] [place] [address] [place] [address] [phone] VALENTINA PUTNAM Next Of Kin [address] [place], [place] [id number] Insurance Providers Payer Name Policy Number Subscriber Name Relationship Medicare [id number] Diana Brunson 18 Self [place] [id number] Diana Brunson 18 Self Chief Complaint and Reason for Visit Chief Complaint Female Urogenital Problems Reason for Visit [id number] Nausea Problems Medical Problems Problem Onset Date [...] 2-3 TIMES A WK 05/04/1011/11 Discontinued Fish Oil/[place]-3 Fatty Acids 1 Cap PO NEEDED 05/07/10 [...] Date 04/12/14 3:30pm Disposition 02 TO OBS [facility] Condition at Discharge Stable Instructions/Education [...] F (96.8 - 99.1) Temperature (Calculated Celsius) 36.15127 degrees C (36.0 - 37.3) Pulse Rate [...] Has specimen been collected/obtained? Y Urine Specific [place] April 11, 2014 10:55am 1.020 - Has [...] 12, 2010 9:33am LAB TEST FORM REQUEST [id number] - EKG August 17, 2009 11:29pm Complete [...] Source April 12, 2010 9:18am Nasal - EH-Vir-A-Type Natriuretic Peptide April 11, 2014 11:34am 715 [...] 2010 1:53pm Name: DIANA BRUNSON Unit #: [id number] : 1935 Sex: F Loc / Svc: ED DOS: 04/11/14 Signed Report #: [id number] DIAGNOSTIC IMAGING REPORT TYPE OF EXAM: CT [...] Encounters Encounter Location Date/Time Departed Emergency Room [facility] 05/06/14 9:40pm Discharged Inpatient [facility] 04/11/14 12:51pm Departed Emergency Room [facility] 03/24/14 2:48pm Recent Diagnosis
[2016-11-29] MEDS ORDERED: NORMAL SALINE 1,000 ML IV ONE (21:00)
[2016-11-29 21:04] LABS: INR 1.16 (0.76-1.04); PROTHROMBIN TIME 12.6 SEC (9.31-12.49)
[2016-11-29 21:10] LABS: ALBUMIN 3.5 G/DL (3.5-5.0); ALBUMIN/GLOBULIN RATIO 1.3 RATIO (1.1-2.2); ALKALINE PHOSPHATASE 57 U/L (38-126); ALT (SGPT) 17 U/L (9-52); ANION GAP 6 MEQ/L (5-15); AST (SGOT) 23 U/L (14-36); BUN/CREATININE RATIO 28 RATIO (6-26); CALCIUM 8.6 MG/DL (8.4-10.2); CHLORIDE 94 MEQ/L (98-107); CO2 - CARBON DIOXIDE 31 MEQ/L (22-30); CREATININE 0.8 MG/DL (0.7-1.2); GLOMERULAR FILTRATION RATE 69; GLUCOSE 98 MG/DL (65-110); POTASSIUM 4.9 MEQ/L (3.6-5); SODIUM 131 MEQ/L (134-144); TOTAL PROTEIN 6.2 G/DL (6.3-8.2)
--- NOTE | 2016-11-29 21:13 | NUR ---
CT TO CT VIA CART
[2016-11-29 21:16] LABS: BASOPHILS % (AUTO) 0.5 % (0-2); EOSINOPHILS # (AUTO) 0.1 T/MM3 (0-0.5); EOSINOPHILS % (AUTO) 1.7 % (0-4); HCT - HEMATOCRIT 32.9 % (36-46); HGB - HEMOGLOBIN 10.6 GM/DL (12-16); IMMATURE GRANULOCYTE # (AUTO) 0.02 T/MM3 (0.00-0.03); IMMATURE GRANULOCYTE % (AUTO) 0.5 % (0.0-0.5); LYMPHOCYTES # (AUTO) 1.2 T/MM3 (1-4.8); LYMPHOCYTES % (AUTO) 27.8 % (23-45); MEAN CORPUSCULAR HGB 31.8 UUG (26-34); MEAN CORPUSCULAR HGB CONC(MCHC 32.2 GM/DL (31-37); MEAN CORPUSCULAR VOLUME 98.8 UM3 (80-100); MEAN PLATELET VOLUME 9.7 UM3 (9.4-12.4); MONOCYTES # (AUTO) 0.6 T/MM3 (0-0.8); MONOCYTES % (AUTO) 14.8 % (0-9.0); NEUTROPHILS #(AUTO)-ABSOLUTE 2.3 T/MM3 (1.8-7.7); NEUTROPHILS % (AUTO) 54.7 % (33-66); RED BLOOD COUNT 3.33 M/MM3 (4.00-5.20); WBC - WHITE BLOOD COUNT 4.2 T/MM3 (4.5-11.0)
--- NOTE | 2016-11-29 21:25 | NUR ---
CT RETURNS FROM CT VIA CART
--- OUTSIDE RECORDS SUMMARY | 2016-11-29 22:21 | XMS REPORT | Continuity of Care Document ---
Author Author [facility] Organization [facility] Address Unknown Phone Unavailable Allergies Medications Problems Procedures Results Encounters ACCT No. Visit Date/Time Discharge Status Pt. Type Provider Facility Loc./Unit Complaint [id number] 11/21/2013 12:44:00 11/21/2013 23 :59:59 CLS Outpatient [id number] 11/07/2013 15:10:00 11/07/2013 23 :59:59 CLS Outpatient [id number] 11/05/2013 14:25:00 11/05/2013 23 :59:59 CLS Outpatient [id number] 10/17/2013 14:13:00 10/17/2013 23 :59:59 CLS Outpatient [id number] 10/15/2013 14:49:00 10/15/2013 23 :59:59 CLS Outpatient [id number] 09/24/2013 15:27:00 09/24/2013 23 :59:59 CLS Outpatient [id number] 09/09/2013 14:29:00 09/09/2013 23 :59:59 CLS Outpatient
--- NOTE | 2016-11-29 22:22 | NUR ---
PLACE IN FACILITY PATIENT TO GO TO ROOM 160, ANABELLA DSOUZA
--- OUTSIDE RECORDS SUMMARY | 2016-11-29 22:22 | XMS REPORT | Continuity of Care Document ---
Author Author [facility] LIVE Organization [facility] LIVE Address Unknown Phone Unavailable Support Name Relationship Address Phone ELDA TRACEY MD Caregiver [address] [place] [address] [place] [phone] STEPHANE WARNER MD Caregiver [address] [place] [address] [place] [phone] VALENTINA PUTNAM Next Of Kin [address] [place], [place] [address] Insurance Providers Payer Name Policy Number Subscriber Name Relationship Medicare [id number] Diana Brunson 18 Self Other A Insurance [id number] Diana Brunson 18 Self Advance Directives Directive [...] 2-3 TIMES A WK 05/04/1011/11 Discontinued Fish Oil/[place]-3 Fatty Acids 1 Cap PO NEEDED 05/07/10 [...] F (96.8 - 99.1) Temperature (Calculated Celsius) 36.52559 degrees C (36.0 - 37.3) Pulse Rate [...] 12, 2010 9:33am LAB TEST FORM REQUEST [id number] - Lipase June 20, 2014 1:09am 138 [...] 03, 2014 10:10pm 15.9 % H 0-9.0 YQ-Uhi-I-Type Natriuretic Peptide October 03, 2014 10:10pm 863 [...] Has specimen been collected/obtained? Y Urine Specific [place] October 04, 2014 12:05am 1.025 - Has [...] completed 07/10/14 EMERGENCY DEPT VISIT completed 07/10/14 [id number] ITEM OR SERVICE completed 07/10/14 [id number]"INJECTION, HYDROMORPHONE, UP TO 4 MG" completed 07/10/14 [id number]"INFUSION, NORMAL SALINE SOLUTION , 1000 CC" completed 07/10/14 Encounters Encounter Location Date/Time Departed Emergency Room [facility] 10/03/14 10:07pm Departed Emergency Room [facility] 07/10/14 2:48pm Recent Diagnosis
--- OUTSIDE RECORDS SUMMARY | 2016-11-29 22:22 | XMS REPORT | Continuity of Care Document ---
Author Author [facility] LIVE Organization [facility]IVE Address Unknown Phone Unavailable Support Name Relationship Address Phone VALENTINA PUTNAM Next Of Kin [address] [place] [address] Unavailable Insurance Providers Payer Name Policy Number Subscriber Name Relationship Medicare [id number] Diana Brunson 18 Self [place] [id number] Diana Brunson 16 Self Problems No Known [...] Prednisone 10 Mg PO DAILY Hydrocodone Bit/Acetaminophen ([place] 7.5/325 Tablet) 1 Tab PO Q4HR Venlafaxine [...] 2010 9:20am 3-5 /HPF - Urine Specific [place] March 05, 2013 12:50pm 1.015 - Urine [...] indicated - Name: DIANA BRUNSON Unit #: [id number]
: 1935 Sex: F
Loc / Svc: MED Admit Date: 03/05/13
Signed Discharge Date:
DISCHARGE SUMMARY Report #: [id number]

General
Date
Date
DATE: 03/09/13
TIME: 13:07
[...] multiple neurologists, last seeing Dr. [facility] in [facility]. She is
on Ultram and Lortab for [...] 10 Mg PO DAILY
12/27/12
Hydrocodone Bit/Acetaminophen ([place] 7.5/325 Tablet) 1 Tab Tablet 1 Tab [...] 13:14 Procedures Procedure Code Date DIAGNOSTIC COLONOSCOPY 25747 06/30/09 TOTAL KNEE REPLACEMENT 81.54 05/04/10 PACKED CELL TRANSFUSION 99.04 05/07/10 AMBULAT & GAIT TRAINING 93.22 05/07/10 OCCUPATIONAL THERAPY 93.83 05/07/10 THER/PROPH/DIAG INJ IV PUSH 72116 07/30/10 TX/PRO/DX INJ NEW DRUG ADDON 18143 07/30/10 REMOVAL OF THYROID 20302 12/10/10 CONTROL OF NOSEBLEED 23562 01/02/11 THER/PROPH/DIAG INJ IV PUSH 80849 01/02/11 HYDRATE IV INFUSION ADD-ON 49051 01/02/11 CONTROL OF NOSEBLEED 18853 10/22/12 Blood Culture 03/05/13 Gram Stain 05/04/10 Urine Culture 03/05/13 Encounters Encounter Location Date/Time Discharged Inpatient [facility] 03/05/13 1:24pm Departed Emergency Room [facility] 10/22/12 7:19pm
--- OUTSIDE RECORDS SUMMARY | 2016-11-29 22:23 | XMS REPORT | Continuity of Care Document ---
Author Author [facility] LIVE Organization [facility]IVE Address Unknown Phone Unavailable Support Name Relationship Address Phone ELDA AMIN MD Caregiver [address] [place] [phone] ELIZABETH GARZA MD Caregiver [address] [place] [phone] VALENTINA PUTNAM Next Of Kin [address] [place], [place] [id number] Insurance Providers Payer Name Policy Number Subscriber Name Relationship Medicare [id number] Diana Brunson 18 Self Other A Insurance [id number] Diana Brunson 18 Self Advance Directives Directive Response Recorded Date/Time Advanced Directives Type Living Will DPOA for Healthcare 07/10/14 3:19pm Chief Complaint and Reason for Visit Chief Complaint Nausea,Vomiting,Diarrhea Reason for Visit Gastroenteritis [id number] Abdominal pain Problems Medical Problems Problem Onset [...] 2-3 TIMES A WK 05/04/1011/11 Discontinued Fish Oil/[place]-3 Fatty Acids 1 Cap PO NEEDED 05/07/10 [...] having problems relating to your bowels at [phone]. 2. Please call Dr. Alicea or return to the emergency room if you develope fevers, chills, chest pain, shortness of breath, abdominal pain, dizziness with standing, passing out. Condition at time of discharge: Good Good Good General Information: n/a Condition at time of discharge: Fair Plan of Care Discharge Date 06/23/14 4:05pm Disposition 01 DISCHARGED HOME, SELF-CARE Condition at Discharge Improved Instructions/Education Provided [place] Diet Nausea and Vomiting-Adult Prescriptions See Medications [...] F (96.8 - 99.1) Temperature (Calculated Celsius) 36.09408 degrees C (36.0 - 37.3) Pulse Rate [...] 12, 2010 9:33am LAB TEST FORM REQUEST [id number] - Lipase June 20, 2014 1:09am 138 [...] 10, 2014 3:50pm 12.3 % H 0-9.0 MD-Qea-J-Type Natriuretic Peptide April 11, 2014 11:34am 715 [...] Has specimen been collected/obtained? Y Urine Specific [place] July 10, 2014 3:55pm 1.025 - Has [...] Escherichia Coli Name: DIANA BRUNSON Unit #: [id number] : 1935 Sex: F DISCHARGE SUMMARY Admit Date: 06/21/14 Report #: [id number] General Date Date DATE: 06/23/14 TIME: 11:05 [...] 78 year old woman who presented to [facility] ED on 06/20 [...] Prov:JAYME CALDWELL APRN 06/23/14 Gabapentin (Neurontin)600 Mg Rhnfut887 Mg PO TID 30 Days Prov:JAYME CALDWELL APRN 06/23/14 Reported Medications Sotalol HCl (Sotalol)80 Mg Djdmtw48 Mg PO BID 04/11/14 Hydrocodone/Acetaminophen ([place] 10-325 Tablet)1 Each Tablet1 Tab PO Q6H 04/11/14 Divalproex Sodium (Depakote)125 Mg Tablet.dr1 Tab PO BID 04/11/14 Omeprazole (Prilosec)20 Mg Capsule.dr1 Cap PO DAILY 04/11/14 Venlafaxine Hcl (Effexor)100 Mg Vkelqj35 Mg PO BID 03/24/14 Donepezil Hcl (Aricept)10 Mg Vlwgrr88 Mg PO HS 10/25/13 Meloxicam (Mobic)7.5 Mg Tablet7.5 Mg PO DAILY 10/22/12 Levothyroxine Sodium 125 Mcg Qyatko227 Mcg PO DAILY 10/22/12 Simvastatin (Zocor)20 Mg Phsmzh80 Mg PO HS Ref 0 05/07/10 Zolpidem Tartrate (Ambien)10 Mg Qpbxxz10 Mg PO HS Ref 0 05/07/10 Discontinued [...] Encounters Encounter Location Date/Time Registered Emergency Room [facility] 07/10/14 2:48pm Discharged Inpatient [facility] 06/21/14 1:06pm Departed Emergency Room [facility] 05/06/14 9:40pm Discharged Inpatient [facility] 04/11/14 12:51pm Recent Diagnosis
--- OUTSIDE RECORDS SUMMARY | 2016-11-29 22:23 | XMS REPORT | Continuity of Care Document ---
Author Author [facility] Organization [facility] Address Unknown Phone Unavailable Support Name Relationship Address Phone TANNER HUANG MD Caregiver [address] [place] [address] [place] [address] ELDA TRACEY MD Caregiver [address] [place] [address] [place] [address] [phone] STEPHANE WARNER MD Caregiver [address] [place] [address] [place] [address] VALENTINA PUTNAM Next Of Kin [address] [place], [place] [address] Insurance Providers Payer Name Policy Number Subscriber Name Relationship Medicare [id number] Diana Brunson 18 Self [place] [id number] Diana Brunson 18 Self Advance Directives Directive [...] 2-3 TIMES A WK 05/04/1011/11 Discontinued Fish Oil/[place]-3 Fatty Acids 1 Cap PO NEEDED 05/07/10 [...] F (96.8 - 99.1) Temperature (Calculated Celsius) 36.00746 degrees C (36.0 - 37.3) Temperature Source [...] 12, 2010 9:33am LAB TEST FORM REQUEST [id number] - Lipase March 24, 2014 3:00pm 181 [...] 12, 2014 4:12am 15.7 % H 0-9.0 PE-Zam-R-Type Natriuretic Peptide April 11, 2014 11:34am 715 [...] Has specimen been collected/obtained? Y Urine Specific [place] April 11, 2014 10:55am 1.020 - Has [...] Escherichia Coli Name: DIANA BRUNSON Unit #: [id number] : 1935 Sex: F Loc / Svc: ED DOS: 04/11/14 Signed Report #: [id number] DIAGNOSTIC IMAGING REPORT TYPE OF EXAM: CT [...] 03/24/14 Encounters Encounter Location Date/Time Discharged Inpatient [facility] 04/11/14 12:51pm Departed Emergency Room [facility] 03/24/14 2:48pm Recent Diagnosis Gait instability Nausea Gait instability CAD (coronary artery disease) Hypercholesterolemia Hypothyroidism GERD (gastroesophageal reflux disease) History of kidney stones Myoclonic jerking
--- OUTSIDE RECORDS SUMMARY | 2016-11-29 22:23 | XMS REPORT | Continuity of Care Document ---
Author Author [facility] LIVE Organization [facility] Address Unknown Phone Unavailable Support Name Relationship Address Phone ELDA TRACEY MD Caregiver [address] [place] [phone] ELIZABETH GARZA MD Caregiver [address] [place] [address] [place] [phone] VALENTINA PUTNAM Next Of Kin [address] [place], [place] [id number] Insurance Providers Payer Name Policy Number Subscriber Name Relationship Medicare [id number] Diana Brunson 18 Self Other A Insurance [id number] Diana Brunson 18 Self Advance Directives Directive [...] TIMES A WK 05/04/1011/11 Discontinued Fish Oil/[place]-3 Fatty Acids 1 Cap PO NEEDED 05/07/10 [...] F (96.8 - 99.1) Temperature (Calculated Celsius) 37.18334 degrees C (36.0 - 37.3) Pulse Rate [...] 12, 2010 9:33am LAB TEST FORM REQUEST [id number] - Lipase June 20, 2014 1:09am 138 [...] 03, 2014 10:10pm 15.9 % H 0-9.0 EE-Fwo-Y-Type Natriuretic Peptide October 03, 2014 10:10pm 863 [...] Has specimen been collected/obtained? Y Urine Specific [place] November 23, 2014 11:25am 1.015 - Has [...] Escherichia Coli Name: DIANA BRUNSON Unit #: [id number] : 1935 Sex: F Loc / Svc: ED DOS: 10/03/14 Signed Report #: [id number] DIAGNOSTIC IMAGING REPORT TYPE OF EXAM: CHEST [...] completed 10/03/14 EMERGENCY DEPT VISIT completed 10/03/14 [id number] ITEM OR SERVICE completed 10/03/14 [id number]"INFUSION, NORMAL SALINE SOLUTION , 1000 CC" completed 10/03/14 Encounters Encounter Location Date/Time Departed Emergency Room [facility] 11/23/14 10:12am Departed Emergency Room [facility] 10/03/14 10:07pm Recent Diagnosis
--- OUTSIDE RECORDS SUMMARY | 2016-11-29 22:25 | XMS REPORT | Continuity of Care Document ---
Author Author [facility] Organization [facility] Address Unknown Phone Unavailable Support Name Relationship Address Phone TRISHA DHILLON MD Caregiver [address] [place] [address] ELDA TRACEY MD Caregiver [address] [place] [phone] VALENTINA PUTNAM Next Of Kin [address] [place], [place] [id number] Insurance Providers Payer Name Policy Number Subscriber Name Relationship Medicare [id number] Diana Brunson 18 Self [place] [id number] Diana Brunson 16 Self Advance Directives Directive [...] 2-3 TIMES A WK 05/04/1011/11 Discontinued Fish Oil/[place]-3 Fatty Acids 1 Cap PO NEEDED 05/07/10 [...] F (96.8 - 99.1) Temperature (Calculated Celsius) 36.07909 degrees C (36.0 - 37.3) Pulse Rate [...] 11:19am 31.7 sec - PTT performed at [facility], [address] [place] [address] MedicalDirector Santino Aguirre MD Alanine Aminotransferase (ALT/SGPT) [...] Has specimen been collected/obtained? Y Urine Specific [place] March 24, 2014 3:50pm 1.010 L - [...] 12, 2010 9:33am LAB TEST FORM REQUEST [id number] - EKG August 17, 2009 11:29pm Complete [...] Encounters Encounter Location Date/Time Departed Emergency Room [facility] 03/24/14 2:48pm Recent Diagnosis
--- OUTSIDE RECORDS SUMMARY | 2016-11-29 22:26 | XMS REPORT | Continuity of Care Document ---
Author Author [facility] Organization [facility] Address Unknown Phone Unavailable Support Name Relationship Address Phone FADY WHITE MD Caregiver [facility] [address] [place] [address] Unavailable ELDA TRACEY MD Caregiver [address] [place] [address] [place] [address] [phone] VALENTINA PUTNAM Next Of Kin [address] [place], [place] [id number] Insurance Providers Payer Name Policy Number Subscriber Name Relationship Medicare [id number] Diana Brunson 18 Self [place] [id number] Diana Brunson 18 Self Chief Complaint and Reason for Visit Chief Complaint Female Urogenital Problems Reason for Visit [id number] Nausea Problems Medical Problems Problem Onset Date [...] 2-3 TIMES A WK 05/04/1011/11 Discontinued Fish Oil/Eastman-3 Fatty Acids 1 Cap PO NEEDED 05/07/10 [...] Date 04/12/14 3:30pm Dis[place] [address] [facility] [place] Stable Instructions/Education Provided Myoclonus [...] F (96.8 - 99.1) Temperature (Calculated Celsius) 36.71406 degrees C (36.0 - 37.3) Pulse Rate [...] Has specimen been collected/obtained? Y Urine Specific [place] April 11, 2014 10:55am 1.020 - Has [...] 12, 2010 9:33am LAB TEST FORM REQUEST [id number] - EKG August 17, 2009 11:29pm Complete [...] Source April 12, 2010 9:18am Nasal - SP-Zxc-E-Type Natriuretic Peptide April 11, 2014 11:34am 715 [...] 2010 1:53pm Name: DIANA BRUNSON Unit #: [id number] : 1935 Sex: F Loc / Svc: ED DOS: 04/11/14 Signed Report #: [id number] DIAGNOSTIC IMAGING REPORT TYPE OF EXAM: CT [...] Emergency Room [facility] 05/06/14 9:40pm Discharged Inpatient [facility] 04/11/14 12:51pm Departed Emergency Room [facility] 03/24/14 2:48pm Recent Diagnosis
--- NOTE | 2016-11-29 22:30 | NUR ---
DEPART PATIENT TRANSPORTED TO ROOM 160 VIA CART. TRANSFERRED OVER TO BED BY 3 ASSIST. CAUSED PATIENT GREAT AMOUNT OF PAIN. CARES RELEASED TO ANABELLA DSOUZA.
--- NOTE | 2016-11-29 22:30 | NUR ---
ADMIT TO MEDICAL ROOM 160 FROM E.R. BY CART. PT TALKING WITH EYES CLOSED, MOST ANSWERS ARE "NO", PT CANNOT REMEMBER WHY SHE IS HERE. CAN TELL ME SHE'S AT THE HOSPITAL AND NAME AND BIRTHDAY. HALF BASKETBALL SIZE LUMP TO LEFT ABD. AND PINK SCRAPES/BRUISED AREAS TO LATERAL UPPER LEFT ABD AND SMALL SCRAPE/BRUISE TO LEFT HIP/LATERAL BUTTOCK. PT C/O 10/10 PAIN AND HOLLERS WITH MOVEMENT. NO PAIN ELSEWHERE. NO FAMILY ACCOMPANIES PATIENT. PT LIVES ON "[address] WITH ". PT DENIES USUALLY USING ANYTHING TO HELP AMBULATE AT HOME. ALSO HER RIGHT GREAT TOE IS WRAPPED IN [place], APPARENTLY IT WAS CAUGHT ON A RUG RECENTLY. TELE DOC NOTIFIED THAT PT READY FOR ADMIT.
[2016-11-29 22:40] VITALS: BP 127/74; PULSE 62; RESP 16; TEMP 96.5; O2SAT 95
[2016-11-29] MEDS ORDERED: MELATONIN 5 MG TABLET PO PRN (22:45)
[2016-11-29] MEDS ORDERED: LORAZEPAM 0.5 MG TABLET PO PRN (22:45)
[2016-11-29] MEDS ORDERED: ONDANSETRON 4mg/2ml INJECTION IV PRN (22:45)
[2016-11-29 22:47] VITALS: Ht 165.1 cm; Wt 84.3 kg
[2016-11-29 23:04] VITALS: BP 111/72; PULSE 60; RESP 16; TEMP 96.5; O2SAT 95
--- NOTE | 2016-11-29 23:08 | HPPDOC ---
MAGDALENA OCHOA MD 11/29/16 2259: HPI - Adult Date DATE: 11/29/16 TIME: 22:56 General Chief Complaint: Fall History of Present Illness 81 yo F presented to the ED this PM after falling while trying to transfer from her wheel chair to commode. Her was helping her and was not able to keep her up. She was given 100mcg of fentanyl by EMS and is somnolent and a poor historian. She reports that her left hip hurts and she appears to have a large hematoma on her LLQ and hip. She take eliquis 5mg BID for A. Fib. Patient has been seen several times in the ER over the past month for concerns of bleeding with epitasis and a toe nail that would not stop bleeding. She was admitted for monitoring of her hematoma and PT/OT eval and treat. Past Medical History Past Medical History Aortic stenosis Coronary artery disease Hypercholesterolemia hypothyroidism GERD Constipation History of kidney stones. Hypertension Depression Chronic headaches Chronic neck Surgical History Patient's Surgical History: Cholecystectomy Heart catheterization Foot surgery Knee surgery, right TKA Current Medications Home Meds Reported Medications Ibuprofen (Motrin Ib) 200 Mg Tablet, 400 MG PO Q4H Y for PAIN 11/28/16 Lisinopril (Lisinopril) 2.5 Mg Tablet, 2.5 MG PO DAILY 11/27/16 Fludrocortisone Acetate (Fludrocortisone Acetate) 0.1 Mg Tablet, 0.1 MG PO DAILY , TAB 11/27/16 Cephalexin (Keflex) 250 Mg Capsule, 250 MG PO HS 11/27/16 Carvedilol (Carvedilol) 3.125 Mg Tablet, 1 TAB PO BIDWM 11/27/16 Amiodarone HCl (Amiodarone HCl) 200 Mg Tablet, 200 MG PO DAILY, TAB 11/27/16 Apixaban (Eliquis) 5 Mg Tablet, 5 MG PO BID 11/25/16 Bacillus Coagulans/Inulin (Probiotic Formula Capsule) 1 Each Capsule, 1 CAP PO DAILY 11/15/16 Calcium Carbonate/Vitamin D3 (Calcium 500+D Tablet Chew) 1 Each Tab.chew, 2 TAB PO CHEW DAILY 11/15/16 Cholecalciferol (Vitamin D3) (Vitamin D-400) 400 Unit Tablet, 400 UNIT PO DAILY 11/15/16 Ferrous Sulfate (Slow Fe) 142 Mg Tablet.er, 142 MG PO DAILY 11/15/16 Lorazepam (Lorazepam) 0.5 Mg Tablet, 0.5 MG PO HS Y for ANXIETY 11/15/16 Melatonin (Melatonin) 5 Mg Tablet, 5 MG PO HS Y for INSOMNIA 11/15/16 Meloxicam (Meloxicam) 7.5 Mg Tablet, 7.5 MG PO BID 11/15/16 Nitroglycerin (Nitroglycerin) 0.4 Mg Tab.subl, 0.4 MG PO Q5MIN Y for CHEST PAIN 11/15/16 Ondansetron (Zofran Odt) 4 Mg Tab.rapdis, 4 MG SL QID Y for NAUSEA 11/15/16 Oxycodone HCl/Acetaminophen (Percocet 7.5-325 mg Tablet) 7.5-325 Tablet, 1 TAB PO QID Y for PAIN 11/15/16 Promethazine HCl (Promethazine HCl) 25 Mg Tablet, 25 MG PO Q6H Y for NAUSEA 11/15/16 Acetaminophen (Acetaminophen) 500 Mg Tablet, 1000 MG PO Q8H Y for PAIN 11/15/16 Divalproex Sodium (Divalproex Sodium) 125 Mg Tablet.dr, 125 MG PO BID 05/11/16 Venlafaxine HCl (Venlafaxine HCl) 75 Mg Tablet, 112.5 MG PO BID 05/11/16 Memantine HCl (Namenda Xr) 28 Mg Cap.spr.24, 28 MG PO DAILY 05/11/16 Levothyroxine Sodium (Levothyroxine Sodium) 112 Mcg Tablet, 112 MCG PO ACB 05/11/16 Donepezil HCl (Aricept) 10 Mg Tablet, 10 MG PO HS 04/04/16 Cyclobenzaprine HCl (Cyclobenzaprine HCl) 5 Mg Tablet, 5 MG PO BID Y for PAIN 04/04/16 Primidone (Primidone) 50 Mg Tablet, 50 MG PO TID 08/01/15 Gabapentin (Gabapentin) 600 Mg Tablet, 600 MG PO TID 08/01/15 Omeprazole (Prilosec) 20 Mg Capsule.dr, 20 MG PO DAILY 04/11/14 Allergies: Coded Allergies: Penicillins (Verified Allergy, Severe, ANAPHYLACTIC-ENDED IN ICU FOR A DAY , 11/28/16) Iodinated Contrast Media - Oral and (Verified Allergy, Unknown, RASH,SOA, 11/28/16) Sulfa (Sulfonamide Antibiotics) (Verified Allergy, Unknown, RASH,ITCHY, ) fluoxetine (Verified Allergy, Unknown, 11/28/16) morphine (Verified Allergy, Unknown, 11/28/16) nitrofurantoin (Verified Allergy, Unknown, 11/28/16) aspirin (Verified Adverse Reaction, Intermediate, HIGH BP, SOA, 11/28/16) naproxen sodium (Verified Adverse Reaction, Intermediate, HIGH BP, SOA, ) metoclopramide (Verified Adverse Reaction, Unknown, 11/28/16) PT HAD REGLAN PREOPERATIVELY AND A REACTION THAT SHE WAS UNABLE TO DESCRIBE Family History Family History: Unable to obtain family history Social History Substance Use Type: does not use Alcohol Intake: none Marital Status: Sexuality: male partner Housing: house Current Occupational Status: retired Advance Directives: No DPOA for Healthcare Only Review of Systems Unable to Obtain ROS Due to: clinical condition (solmnolent from fentanyl ) Physical Exam General General Nourishment: well nourished, well developed Vital Signs Vital Signs Date Time Temp Pulse Resp B/P Pulse Ox O2 Delivery O2 Flow Rate FiO2 11/29/16 22:30 97.8 62 14 106/61 93 Room Air Height (Feet): 5 Height (Inches): 5.00 Respiratory Brief: FOUND: clear all santiago, equal bilaterally Cardiovascular (brief) Cardiac Brief: FOUND: regular rate, regular rhythm Abdomen (brief) Abdominal Brief: FOUND: BS normo active x4, tender (LLQ) Musculoskeletal (brief) Musculoskeletal Brief: FOUND: deformity Integumentary (brief) Integumentary Brief: FOUND: pink Neurologic (brief) Neurological Brief: FOUND: cranial 2-12 intact Neurologic RN Documented GCS Eye Opening: (4)Spontaneous Verbal: (5)Oriented Motor: (6)Obeys Commands Total: Psychiatric (brief) FOUND: alert Laboratory Laboratory Tests Test 11/29/16 20:55 White Blood Count 4.2T/MM3 Red Blood Count 3.33M/MM3 Hemoglobin 10.6GM/DL Hematocrit 32.9% Mean Corpuscular Volume 98.8UM3 Mean Corpuscular Hemoglobin 31.8UUG Mean Corpuscular Hemoglobin Concent 32.2GM/DL RDW Standard Deviation 49.2FL Platelet Count 225T/MM3 Mean Platelet Volume 9.7UM3 Immature Granulocyte % (Auto) 0.5% Neutrophils (%) (Auto) 54.7% Lymphocytes (%) (Auto) 27.8% Monocytes (%) (Auto) 14.8% Eosinophils (%) (Auto) 1.7% Basophils (%) (Auto) 0.5% Absolute Immature Granulocyte (auto 0.02T/MM3 Absolute Neutrophils (auto) 2.3T/MM3 Absolute Lymphocytes (auto) 1.2T/MM3 Absolute Monocytes (auto) 0.6T/MM3 Absolute Eosinophils (auto) 0.1T/MM3 Absolute Basophils (auto) 0.0T/MM3 Prothromb Time International Ratio 1.16 Turbidity < 20 Sodium Level 131MEQ/L Potassium Level 4.9MEQ/L Chloride Level 94MEQ/L Carbon Dioxide Level 31MEQ/L Anion Gap 6MEQ/L Blood Urea Nitrogen 22.0MG/DL Creatinine 0.8MG/DL Glomerular Filtration Rate Calc 69 BUN/Creatinine Ratio 28RATIO Glucose Level 98MG/DL Calculated Osmolality 256MOSM/KG Calcium Level 8.6MG/DL Total Bilirubin 0.50MG/DL Icterus Index < 2 Aspartate Amino Transf (AST/SGOT) 23U/L Alanine Aminotransferase (ALT/SGPT) 17U/L Alkaline Phosphatase 57U/L Total Protein 6.2G/DL Albumin 3.5G/DL Globulin 2.7G/DL Albumin/Globulin Ratio 1.3RATIO Chemistry Specimen Hemolysis < 15 Sepsis Diagnostic Criteria Sepsis Confirmed/Suspected Infection: No Assessment & Plan Problems: (1) Abdominal hematoma Status: Acute Qualifiers: Encounter type: initial encounter Qualified Codes: S36.92XA - Contusion of unspecified intra-abdominal organ, initial encounter Assessment & Plan: due to fall and eliquis. CT scan showed soft tissue swelling. No intra-abdominal injury. Hold eliquis this PM and tomorrow. Continue to monitor for signs of increased bleeding. Supportive care overnight. Percocet for pain. PT/OT eval and treat. question continued use of eliquis given patients multiple episodes of bleeding and falls. NS 100cc/hr overnight for gentle fluid hydration. (2) Fall Assessment & Plan: due to weakness. PT/OT eval and treat in the AM. (3) Weakness generalized Status: Acute Assessment & Plan: PT/OT eval and treat. Social work consult in AM to help with possible transition to SNF. (4) Dementia Status: Chronic (5) Hypothyroidism Status: Chronic (6) GERD (gastroesophageal reflux disease) Status: Chronic (7) History of cardiac arrhythmia Status: Resolved Assessment Continue all other home medications for chronic medical conditions. DVT Prophylaxis: other Code Status Full Code Hospital Course Summary Disclaimer The hospital course summary below is not to be considered part of the above Progress Note. DARY CONTRERAS MD 11/30/16 1010: Past Medical History Current Medications Home Meds Reported Medications Ibuprofen (Motrin Ib) 200 Mg Tablet, 400 MG PO Q4H Y for PAIN 11/28/16 Lisinopril (Lisinopril) 2.5 Mg Tablet, 2.5 MG PO DAILY 11/27/16 Fludrocortisone Acetate (Fludrocortisone Acetate) 0.1 Mg Tablet, 0.1 MG PO DAILY , TAB 11/27/16 Cephalexin (Keflex) 250 Mg Capsule, 250 MG PO HS 11/27/16 Carvedilol (Carvedilol) 3.125 Mg Tablet, 1 TAB PO BIDWM 11/27/16 Amiodarone HCl (Amiodarone HCl) 200 Mg Tablet, 200 MG PO DAILY, TAB 11/27/16 Apixaban (Eliquis) 5 Mg Tablet, 5 MG PO BID 11/25/16 Bacillus Coagulans/Inulin (Probiotic Formula Capsule) 1 Each Capsule, 1 CAP PO DAILY 11/15/16 Calcium Carbonate/Vitamin D3 (Calcium 500+D Tablet Chew) 1 Each Tab.chew, 2 TAB PO CHEW DAILY 11/15/16 Cholecalciferol (Vitamin D3) (Vitamin D-400) 400 Unit Tablet, 400 UNIT PO DAILY 11/15/16 Ferrous Sulfate (Slow Fe) 142 Mg Tablet.er, 142 MG PO DAILY 11/15/16 Lorazepam (Lorazepam) 0.5 Mg Tablet, 0.5 MG PO HS Y for ANXIETY 11/15/16 Melatonin (Melatonin) 5 Mg Tablet, 5 MG PO HS Y for INSOMNIA 11/15/16 Meloxicam (Meloxicam) 7.5 Mg Tablet, 7.5 MG PO BID 11/15/16 Nitroglycerin (Nitroglycerin) 0.4 Mg Tab.subl, 0.4 MG PO Q5MIN Y for CHEST PAIN 11/15/16 Ondansetron (Zofran Odt) 4 Mg Tab.rapdis, 4 MG SL QID Y for NAUSEA 11/15/16 Oxycodone HCl/Acetaminophen (Percocet 7.5-325 mg Tablet) 7.5-325 Tablet, 1 TAB PO QID Y for PAIN 11/15/16 Promethazine HCl (Promethazine HCl) 25 Mg Tablet, 25 MG PO Q6H Y for NAUSEA 11/15/16 Acetaminophen (Acetaminophen) 500 Mg Tablet, 1000 MG PO Q8H Y for PAIN 11/15/16 Divalproex Sodium (Divalproex Sodium) 125 Mg Tablet.dr, 125 MG PO BID 05/11/16 Venlafaxine HCl (Venlafaxine HCl) 75 Mg Tablet, 112.5 MG PO BID 05/11/16 Memantine HCl (Namenda Xr) 28 Mg Cap.spr.24, 28 MG PO DAILY 05/11/16 Levothyroxine Sodium (Levothyroxine Sodium) 112 Mcg Tablet, 112 MCG PO ACB 05/11/16 Donepezil HCl (Aricept) 10 Mg Tablet, 10 MG PO HS 04/04/16 Cyclobenzaprine HCl (Cyclobenzaprine HCl) 5 Mg Tablet, 5 MG PO BID Y for PAIN 04/04/16 Primidone (Primidone) 50 Mg Tablet, 50 MG PO TID 08/01/15 Gabapentin (Gabapentin) 600 Mg Tablet, 600 MG PO TID 08/01/15 Omeprazole (Prilosec) 20 Mg Capsule.dr, 20 MG PO DAILY 04/11/14 Allergies: Coded Allergies: Penicillins (Verified Allergy, Severe, ANAPHYLACTIC-ENDED IN ICU FOR A DAY , 11/28/16) Iodinated Contrast Media - Oral and (Verified Allergy, Unknown, RASH,SOA, 11/28/16) Sulfa (Sulfonamide Antibiotics) (Verified Allergy, Unknown, RASH,ITCHY, ) fluoxetine (Verified Allergy, Unknown, 11/28/16) morphine (Verified Allergy, Unknown, 11/28/16) nitrofurantoin (Verified Allergy, Unknown, 11/28/16) aspirin (Verified Adverse Reaction, Intermediate, HIGH BP, SOA, 11/28/16) naproxen sodium (Verified Adverse Reaction, Intermediate, HIGH BP, SOA, ) metoclopramide (Verified Adverse Reaction, Unknown, 11/28/16) PT HAD REGLAN PREOPERATIVELY AND A REACTION THAT SHE WAS UNABLE TO DESCRIBE Assessment & Plan Assessment 11/30/2016-Dr. Contreras I've seen and examined the patient and reviewed the H&P above. I discussed the patient with Dr. Ochoa earlier this morning. The patient is currently on the ventilator in CCU and is not able to give a history. Past medical history: Agree with above. The patient does not have history of seizures. She is on divalproex for headaches. She has history of atrial fibrillation. Medications and allergies were reviewed Family history includes ovarian cancer in her sister. Parents and siblings of unknown cause Social history patient is a nonsmoker nondrinker. She requests full code at this time per family. Unable to obtain review of systems Physical exam currently the patient is sedated and on the ventilator. Heart rate is in the low 60s and occasionally drops lower requiring intermittent external pacing. Blood pressure is 200/85 secondary to dopamine which she is on to help with heart rate. HEENT reveals the patient to have oral intubation. Chest is clear to auscultation bilaterally. Cardiovascular reveals a bradycardic rate with irregular rhythm. Abdomen is soft and nontender. Left flank/side reveals a large hematoma. Abdomen is soft and nontender with hypoactive bowel sounds. Extremities are free of edema. Skin is warm and dry. Impression Severe bradycardia requiring external pacing Acute blood loss anemia secondary to abdominal wall hematoma post fall in a patient on anticoagulation Chronic anticoagulation with Eliquis Status post CODE BLUE History of A. fib on amiodarone and Coreg Dementia Aortic stenosis Coronary artery disease Hypertension Depression Chronic headaches Plan Earlier on my arrival around 7:30 this morning the patient was fairly hypotensive and bradycardic. She was given 2 units of blood and fluids wide open at the time. Dopamine was increased up to 20 mics. Only 2 IVs were available and the patient was given an intraosseous line. PICC line was attempted and we are unable to get that in at this time at the bedside. We'll try with radiology under fluoroscopy. We'll check a stat hemoglobin post 2 units of blood. Check renal panel, magnesium and check troponin. Repeat EKG. Dr. Rosenberg was consulted and recommends temporary pacemaker placement. We will plan for this when catheter lab is available. Continue on the ventilator for respiratory support. 2 new external pacing as needed for now. Continue dopamine to keep heart rate at least in the 60s. Dopamine can be discontinued once pacemaker is in place. Protonix for GI protection Give Synthroid IV DC oral medications Plan for transfer to trauma service at the [facility] once patient is stabilized with temporary pacemaker. Greater than 2 hours and 15 minutes of critical care time spent seeing and evaluating the patient this morning, talking with multiple family members. Discussing with Dr. Rosenberg. And attending at bedside to help manage severe bradycardia, hypotension. MAGDALENA OCHOA MD Nov 29, 2016 22:59 DARY CONTRERAS MD Nov 30, 2016 10:10
[2016-11-29] MEDS: NORMAL SALINE 1,000 ML IV SCH (23:40)
--- NOTE | 2016-11-29 23:40 | NUR ---
BEGUM PT ALLERGIC TO IODINE DYE, USED CHLORHEXIDINE STICKS X3 TO STERILIZE KIRAN BEFORE BEGUM INSERTION, AFTER NORMAL KIRAN CARE WAS PERFORMED. OTHER THAN THE BURNING FROM THE SWAB STICKS, PT TOLERATED BEGUM PLACEMENT OK. 2 ATTEMPTS FOR CATH DUE TO UNABLE TO VISUALIZE URETHRA THE FIRST TRY. LIGHT ALISE URINE RETURNED WITH SECOND ATTEMPT AND UA WILL BE SENT.
[2016-11-30] VITALS (96 sets, daily range): BP systolic 44–228; BP diastolic 29–141; PULSE 35–109; RESP 9–50; TEMP 96.3–97.4; O2SAT 91–100
[2016-11-30 00:16] LABS: BLOOD, URINE NEGATIVE (NEGATIVE); COLOR,URINE YELLOW (YELLOW); LEUKOCYTE ESTERASE ,URINE NEGATIVE (NEGATIVE); NITRITE,URINE NEGATIVE (NEGATIVE); UROBILINOGEN,URINE 0.2 EU/DL (NORMAL)
--- NOTE | 2016-11-30 01:30 | NUR ---
UNRESPONSIVE PT WAS ADMITTED, C/O 06/13 PAIN. HAD NOT HAD PAIN MEDS SINCE EMS. GAVE 1 PO PERCOCET 7.5MG AT 2338. AFTER INITIAL ADMISSION PT WAS MORE ALERT, KEEPING EYES OPEN, ASKING FOR FOOD. TOOK IN JELLO AND ASKED ABOUT MORE TO EAT. OFFERED A MEAL TRAY. SET UP FOR PATIENT, CUT UP HER FOOD, GIVEN A COFFEE SHE HAD REQUESTED. PT SITTING UP AND EATING WHEN LAST CHECKED ON 0015. NOW AT 0128, IN ROOM, PT APPEARED TO BE SNORING. ASKED RANDALL WHITE TO COME HELP REPOSITION AND BOOST IN BED IN ATTEMPT TO AWAKEN PT. PT DID NOT RESPOND TO STERNAL RUBS, OR FURTHER COMMANDS. PUPILS EQUAL AND PINPOINT. HYPOTENSION WITH SBP 54 PULSE 35 BPM. RANDALL CALLED LUISANA THE SHOW CARD WRITER ON SHIFT WHILE I CONTACTED DR OCHOA THROUGH TIGER TEXT AND THEN PHONE AT 0131. AT 0135 RAPID RESPONSE. CALLED FOR TELE TO BE BROUGHT AT 0132, MEANWHILE LUISANA, SHOW CARD WRITER RESPONDED, PT BREATHING AGONAL, SHE WAS PALE AND DIAPHORETIC. PT PLACED SUPINE AND AFTER 1 BREATH, QUIT BREATHING, NO PULSE. CALLED LASHAY MACE. SEE LASHAY BLUE ASSESSMENT.
--- NOTE | 2016-11-30 01:40 | NUR ---
Family Contacted Daughter, Kristine, contacted at this time to advise of pt decline in status (code blue). Information provided. Pt's daughter lives in [place] and is unable to come to the hospital due to weather and drowsiness from medication. She will contact pt's who lives here in [place]. Phone number provided to daughter for her to call back. Addendum: 11/30/16 at 0302 by AUDREY NUNEZ RN Daughter called back. Provided update. Pt now has pulse and is moving about in bed. Informed daughter that pt will be intubated and transferred to CCU 3. Provided CCU phone number. She states that she was unable to get a hold of pt's , however is concerned with him driving in the weather also. RN assured her that she would be contacted should pt's status worsen. Daughter is appreciative.
--- NOTE | 2016-11-30 02:07 | NUR ---
CT Pt transferred to CT via cart. Pt is intubated. RT bags pt during procedure. Pt is externally paced at 60 BPM at 40 mA. This RN, Gabbi Cole RN, Uriel Major RT, Gaby Lomax RN assists.
[2016-11-30 02:21] LABS: BASOPHILS % (AUTO) 0.3 % (0-2); EOSINOPHILS # (AUTO) 0.1 T/MM3 (0-0.5); EOSINOPHILS % (AUTO) 1.4 % (0-4); HCT - HEMATOCRIT 24.6 % (36-46); IMMATURE GRANULOCYTE # (AUTO) 0.03 T/MM3 (0.00-0.03); IMMATURE GRANULOCYTE % (AUTO) 0.5 % (0.0-0.5); LYMPHOCYTES # (AUTO) 2.6 T/MM3 (1-4.8); LYMPHOCYTES % (AUTO) 45.3 % (23-45); MEAN CORPUSCULAR HGB 32.8 UUG (26-34); MEAN CORPUSCULAR HGB CONC(MCHC 32.5 GM/DL (31-37); MEAN CORPUSCULAR VOLUME 100.8 UM3 (80-100); MEAN PLATELET VOLUME 9.7 UM3 (9.4-12.4); MONOCYTES # (AUTO) 0.7 T/MM3 (0-0.8); MONOCYTES % (AUTO) 12.1 % (0-9.0); NEUTROPHILS #(AUTO)-ABSOLUTE 2.3 T/MM3 (1.8-7.7); NEUTROPHILS % (AUTO) 40.4 % (33-66); RED BLOOD COUNT 2.44 M/MM3 (4.00-5.20); WBC - WHITE BLOOD COUNT 5.8 T/MM3 (4.5-11.0)
[2016-11-30 02:22] LABS: INR 1.15 (0.76-1.04); PROTHROMBIN TIME 12.5 SEC (9.31-12.49); PTT 24.8 SEC (24-36)
[2016-11-30 02:24] LABS: ALBUMIN 2.7 G/DL (3.5-5.0); ALBUMIN/GLOBULIN RATIO 1.3 RATIO (1.1-2.2); ALKALINE PHOSPHATASE 39 U/L (38-126); ALT (SGPT) 24 U/L (9-52); ANION GAP 3 MEQ/L (5-15); AST (SGOT) 19 U/L (14-36); BUN/CREATININE RATIO 22 RATIO (6-26); CALCIUM 7.8 MG/DL (8.4-10.2); CHLORIDE 99 MEQ/L (98-107); CK - CPK 60 U/L (30-135); CO2 - CARBON DIOXIDE 30 MEQ/L (22-30); GLOMERULAR FILTRATION RATE 53; GLUCOSE 127 MG/DL (65-110); LACTATE - LACTIC ACID 2.5 MMOL/L (0.6-2.2); POTASSIUM 4.7 MEQ/L (3.6-5); SODIUM 132 MEQ/L (134-144); TOTAL PROTEIN 4.8 G/DL (6.3-8.2)
--- NOTE | 2016-11-30 02:25 | NUR ---
Admit Pt admitted to CCU at this time. Pt placed onto ventilator by RT at 100% FiO2. Pt sedated at this time. Pt is paced 100% externally at 60 bpm. Pt has weak radial pulses. Pt BP is 106/56, 02 sats are99%. Will monitor closely.
--- NOTE | 2016-11-30 02:50 | NUR ---
Orders Dr Mary orders cardiology consult. Discussed case with . Relayed CT results. Relayed HR, BP, O2 sats.
--- NOTE | 2016-11-30 03:04 | PNPDOC ---
Subjective Date DATE: 11/30/16 TIME: 02:57 Subjective Called by nursing staff for patient becoming unresponsive and bradycardic with HR in the 30's. Patient then went asystole and code blue started. Patient had 1 round of CPR before spontaneous perfusion occurred. Patient given .4mg Narcan, this did not resolve her symptoms. Patient was found to be continually bradycardic. construction mgr was set to pace. Patient was intubated, STAT labs ordered and CT head performed. CT head was negative for acute findings. CBC did show a drop in Hgb to 8.0 from 10.6. Patient remained on cardiac pacing and cardiology consulted for symptomatic bradycardia. Objective Vital Signs Vital signs Vital Signs Date Time Temp Pulse Resp B/P Pulse Ox O2 Delivery O2 Flow Rate FiO2 11/29/16 23:04 96.5 60 16 111/72 95 Room Air Height (Feet): 5 Height (Inches): 5.00 Weight (Kilograms): 89.700 Laboratory Laboratory Laboratory Tests 11/29/16 20:55 11/30/16 01:51 Laboratory Tests 11/29/16 20:55 11/30/16 01:51 Sepsis Diagnostic Criteria Sepsis Confirmed/Suspected Infection: No Assessment & Plan Problems: (1) Abdominal hematoma Status: Acute Qualifiers: Encounter type: initial encounter Qualified Codes: S36.92XA - Contusion of unspecified intra-abdominal organ, initial encounter Assessment & Plan: due to fall and eliquis. CT scan showed soft tissue swelling. No intra-abdominal injury. Hold eliquis this PM and tomorrow. Continue to monitor for signs of increased bleeding. Supportive care overnight. Percocet for pain. PT/OT eval and treat. question continued use of eliquis given patients multiple episodes of bleeding and falls. NS 100cc/hr overnight for gentle fluid hydration. (2) Fall Assessment & Plan: due to weakness. PT/OT eval and treat in the AM. (3) Weakness generalized Status: Acute Assessment & Plan: PT/OT eval and treat. Social work consult in AM to help with possible transition to SNF. (4) Dementia Status: Chronic (5) Hypothyroidism Status: Chronic (6) GERD (gastroesophageal reflux disease) Status: Chronic (7) History of cardiac arrhythmia Status: Resolved Assessment Continue all other home medications for chronic medical conditions. Code Status Full Code Hospital Course Summary Disclaimer The hospital course summary below is not to be considered part of the above Progress Note. MAGDALENA OCHOA MD Nov 30, 2016 03:03
[2016-11-30] MEDS: NORMAL SALINE 1,000 ML IV SCH ×2 (03:10→16:06)
--- NOTE | 2016-11-30 03:10 | NUR ---
CXR Order rec'd from Dr Mary for CXR for placement of ET tube. Addendum: 11/30/16 at 1037 by CASSY PEREZ RN Time on this is 0312 on 11/30/16.
[2016-11-30] MEDS ORDERED: DOPamine 400 MG in D5W 250 ML IV SCH ×2 (03:30→06:30)
--- NOTE | 2016-11-30 03:40 | NUR ---
Dopamine started Dopamine gtt started at this time for HR control.
--- NOTE | 2016-11-30 03:42 | NUR ---
Restraints Pt is more awake at this time and squeezes hands on command. Pupils equal, reactive to light. Pt moves legs on command. Dr Mary ok's restraints so pt doesn't pull out ET tube. Pt shakes head "no" when asked if she was in pain. Restraints applied. Pt nods head "yes" when alerted of need for restraints. Radial pulses palpable.
--- NOTE | 2016-11-30 03:42 | NUR ---
Orders Dr Mary orders Fentanyl and Versed gtt at this time for sedation for pt. Dr Mary denies need to place OG tube at this time. Dr Mary alerted of Dopamine started to help HR/BP per orders from cardiology and to hopefully get pt off external pacing. Order rec'd for Ativan 1 mg Q2H PRN for coverage until Fentanyl and Versed gtt started.
[2016-11-30] MEDS ORDERED: LORAZEPAM 2 MG/ML INJECTION IV PRN (03:45)
--- NOTE | 2016-11-30 03:49 | NUR ---
Ativan Ativan admin for pt comfort at this time.
[2016-11-30] MEDS ORDERED: MIDAZOLAM IV SCH (04:00)
[2016-11-30] MEDS ORDERED: NORMAL SALINE IV ONE (04:00)
[2016-11-30] MEDS ORDERED: FENTANYL IV ONE (04:00)
[2016-11-30] MEDS ORDERED: NORMAL SALINE IV SCH (04:00)
--- NOTE | 2016-11-30 04:15 | NUR ---
CXR results/New orders CXR results relayed to Dr Mary: ET Tube a t2.3 cm above mert. Relayed BP 59/33. Relayed Dopamine gtt at 2 mcg/kg/min. Order rec'd to go to 5 mcg/kg/min. Order rec'd for CT of abd/pelvis.
[2016-11-30 04:20] LABS: BASOPHILS % (AUTO) 0.2 % (0-2); EOSINOPHILS % (AUTO) 0.8 % (0-4); HCT - HEMATOCRIT 21.9 % (36-46); HGB - HEMOGLOBIN 7.2 GM/DL (12-16); IMMATURE GRANULOCYTE # (AUTO) 0.04 T/MM3 (0.00-0.03); IMMATURE GRANULOCYTE % (AUTO) 0.8 % (0.0-0.5); LYMPHOCYTES % (AUTO) 20.3 % (23-45); MEAN CORPUSCULAR HGB 31.9 UUG (26-34); MEAN CORPUSCULAR HGB CONC(MCHC 32.9 GM/DL (31-37); MEAN CORPUSCULAR VOLUME 96.9 UM3 (80-100); MEAN PLATELET VOLUME 8.9 UM3 (9.4-12.4); MONOCYTES # (AUTO) 0.5 T/MM3 (0-0.8); MONOCYTES % (AUTO) 10.8 % (0-9.0); NEUTROPHILS #(AUTO)-ABSOLUTE 3.4 T/MM3 (1.8-7.7); NEUTROPHILS % (AUTO) 67.1 % (33-66); RED BLOOD COUNT 2.26 M/MM3 (4.00-5.20)
--- NOTE | 2016-11-30 04:29 | NUR ---
Dr Mary Relayed to Dr Mary of AB: pH 7.48, pCO2 38, pO2 83, bicarb 28. Order rec'd for CBC and consult surgery commissioning specialist.
[2016-11-30 04:33] LABS: ANION GAP 3 MEQ/L (5-15); BUN/CREATININE RATIO 23 RATIO (6-26); CALCIUM 7.6 MG/DL (8.4-10.2); CHLORIDE 104 MEQ/L (98-107); CO2 - CARBON DIOXIDE 26 MEQ/L (22-30); CREATININE 0.9 MG/DL (0.7-1.2); GLOMERULAR FILTRATION RATE 60; GLUCOSE 131 MG/DL (65-110); POTASSIUM 4.3 MEQ/L (3.6-5); SODIUM 133 MEQ/L (134-144)
--- NOTE | 2016-11-30 04:35 | NUR ---
Dr Hayes Alerted Dr Hayes of pt status, current HR, meds, CT results. Dr Hayes encourages tx to [facility] and to have blood ready and/or give blood.
--- NOTE | 2016-11-30 04:35 | NUR ---
HR Pt HR now above 60 and no longer paced. Pt HR is irregular with some pwaves noted. Pacing off at this time.
--- NOTE | 2016-11-30 04:45 | NUR ---
Dr Rodriguez Alerted Dr Mary of Dr Hayes's recommendation. Dr Mary states she has spoken with a trauma surgeon in [place] and they would like the pt to be more stable prior to transfer. Order rec'd to type and screen blood at this time.
--- NOTE | 2016-11-30 04:50 | NUR ---
CT To CT at this time. Monitored by this RN. Gabbi Cole RN assists. RT assists.
--- NOTE | 2016-11-30 05:09 | NUR ---
Back to room Pt back to room at this time from CT.
[2016-11-30] MEDS ORDERED: TRANEXAMIC ACID 1,000 MG in NORMAL SALINE 100 ML IV SCH (05:15)
--- NOTE | 2016-11-30 05:17 | NUR ---
Sedation Versed and Fentanyl started per pharmacy recommendation for comfort/sedation while on vent.
--- NOTE | 2016-11-30 05:19 | NUR ---
Orders Dr Mary orders 2 units blood. Addendum: 11/30/16 at 4 by CASSY PEREZ RN Discussed hgb of 7.2.
--- NOTE | 2016-11-30 05:40 | NUR ---
Orders Dr Mary alerted of Fentanyl gtt was started at 7 mcg/kg/min. Discussed orders for Tranexamic Acid. Dr Mary wants 1 Gram given per orders then give another Gram as a gtt.
[2016-11-30] MEDS ORDERED: NORMAL SALINE 500 ML IV SCH (05:41)
--- NOTE | 2016-11-30 05:47 | NUR ---
Pharmacist Andrea Jimenez with pharmacy alerted of Tranexamic Acid orders. Discussed bolus rate. Andrea states the gtt rate will be entered by pharmacist that will come in a t0600 today.
--- NOTE | 2016-11-30 05:48 | NUR ---
Family alerted family of pt status throughout night. spoke with Kristine, daughter. She states she will call her father about blood transfusions and PICC line.
--- NOTE | 2016-11-30 05:51 | NUR ---
PICC Alerted Kayy and Dayana with Infusion therapy of order for PICC line. Kayy states she will be here around 0700.
--- NOTE | 2016-11-30 06:00 | NUR ---
Family Discussed code status with daughter Kristine. Daughter verifies full code status at this time.
--- NOTE | 2016-11-30 06:13 | NUR ---
[facility] calls with critical finding on CT of abd and pelvis. This information was relayed to Dr Mary . Discussed current HR, BP, current meds. No new orders rec'd.
[2016-11-30] MEDS ORDERED: TRANEXAMIC ACID 1,000 MG in NORMAL SALINE 100 ML IV ONE (06:15)
--- NOTE | 2016-11-30 06:15 | NUR ---
Consent Received phone call from pt's daughter, Kristine Greenberg, RE: consent for blood transfusion and picc line insertion. When she called, she was able to 3-way call with pt's , Mark Brunson. Both the daughter, Kristine, and , Mark, gave consent to both procedures. Witnessed by this RN and another CCU RN, SAMY Bustamante.
--- NOTE | 2016-11-30 06:26 | NUR ---
Dr Mary Discussed if Dr wants an EKG. No EKG orderred.
[2016-11-30] MEDS ORDERED: LEVOTHYROXINE 112 MCG TABLET PO SCH (06:30)
--- NOTE | 2016-11-30 06:47 | NUR ---
supervisor chemical Gabbi Cole RN, shift foreman here to attempt another IV site. this RN has attempted 1.
--- NOTE | 2016-11-30 06:54 | NUR ---
Blood./ Blood is ready at [facility]. Dr Mary orders all meds to continue, but to hold NS maintenance fluid which is running at 125/hr during blood transfusion.
--- NOTE | 2016-11-30 07:12 | NUR ---
Dr Contreras page Page sent to Dr Contreras
--- NOTE | 2016-11-30 07:24 | NUR ---
Dr Contreras Alerted Dr Contreras of critical pt status with HR down to 60's again, BP 58/32. Relayed current meds, blood, status. Order rec'd to give 2 units of blood wide open. Order rec'd for Dr in ED to come put in I& O. Alerted Dr in ED of this. Addendum: 11/30/16 at 1115 by CASSY PEREZ RN Dr Contreras here at this time. Addendum: 11/30/16 at 1946 by CASSY PEREZ RN Order also rec'd to start pacing again
--- NOTE | 2016-11-30 07:30 | NUR ---
Family alerted daughter Kristine of pt critical condition. She states her and her father will be in.
--- NOTE | 2016-11-30 07:35 | NUR ---
IO IO placed at this time by Dr Orellana.
[2016-11-30 07:37] LABS: BASOPHILS % (AUTO) 0.2 % (0-2); EOSINOPHILS # (AUTO) 0.1 T/MM3 (0-0.5); EOSINOPHILS % (AUTO) 0.8 % (0-4); HCT - HEMATOCRIT 26.6 % (36-46); HGB - HEMOGLOBIN 8.5 GM/DL (12-16); IMMATURE GRANULOCYTE # (AUTO) 0.04 T/MM3 (0.00-0.03); IMMATURE GRANULOCYTE % (AUTO) 0.6 % (0.0-0.5); LYMPHOCYTES # (AUTO) 1.4 T/MM3 (1-4.8); LYMPHOCYTES % (AUTO) 20.9 % (23-45); MEAN CORPUSCULAR HGB 31.8 UUG (26-34); MEAN CORPUSCULAR VOLUME 99.6 UM3 (80-100); MEAN PLATELET VOLUME 10.1 UM3 (9.4-12.4); MONOCYTES # (AUTO) 0.7 T/MM3 (0-0.8); MONOCYTES % (AUTO) 10.5 % (0-9.0); NEUTROPHILS #(AUTO)-ABSOLUTE 4.4 T/MM3 (1.8-7.7); RED BLOOD COUNT 2.67 M/MM3 (4.00-5.20); WBC - WHITE BLOOD COUNT 6.6 T/MM3 (4.5-11.0)
--- NOTE | 2016-11-30 07:48 | NUR ---
BBK 2nd unit of blood started at this time.
--- NOTE | 2016-11-30 07:50 | NUR ---
Maye KYLE here to insert PICC line.
--- NOTE | 2016-11-30 07:51 | NUR ---
first unit PRBCs finished, second starting. sBP 160s, HR 120s, weaning dopamine down, blood rate down to 150/hour.
--- NOTE | 2016-11-30 07:53 | DI ---
Indication: ITS.REASON: post code PROCEDURE: CT HEAD W/O CONTRAST: Encounter: Initial Comparison: November 27, 2016 Technique: Axial CT images through the head were performed without contrast. Iterative Reconstruction dose reducing technique was utilized. FINDINGS: Moderate atrophy. The ventricles are stable. There are extensive confluent areas of low attenuation in the white matter which most likely represent changes from chronic microvascular ischemia. The brainstem, cerebellum, and cerebral hemispheres otherwise have a normal morphology and CT attenuation. There is no evidence of midline displacement. No hemorrhage, signs of acute territorial stroke, mass effect, mass lesions, or edema is evident. The visualized portions of the skull base, midface, and calvarium demonstrate no abnormality. The paranasal sinuses are well aerated and free of significant disease. The tympanic and mastoid cavities appear normal. IMPRESSION: No acute intracranial abnormality or hemorrhage. There is a preliminary report by [facility]. .
--- NOTE | 2016-11-30 07:58 | DI ---
Indication: ITS.REASON: fall, abdominal mass PROCEDURE: CT ABD/PELVIS W/O CONTRAST: Encounter: Initial Comparison: November 25, 2016 Technique: Axial CT images were performed through the abdomen and pelvis without intravenous contrast. Coronal and sagittal two-dimensional reformats. Automated Exposure Control and Iterative Reconstruction dose reducing techniques were utilized. Findings: Minimal atelectasis in the lung bases. Cardiac silhouette remains enlarged. Unenhanced contours of the solid organs are stable from the very recent comparison study. Postoperative changes in the stomach. Large amount of stool in the colon. No clear evidence of small bowel obstruction. No evidence of free intraperitoneal air. Fibroid uterus. Mildly distended bladder. Possible sigmoid colonic stricture suggested on the comparison study is not definitely seen on today's exam. Bone windows show no acute changes. Large hematoma in the subcutaneous tissues overlying the left lateral abdomen and upper pelvis. This area measures up to 11.5 cm craniocaudally and 6.2 cm in width on coronal image #27. There is differing attenuation within the collection suggesting active bleeding. Impression: 1. Large left lower abdominal and upper pelvic subcutaneous hematoma with suggestion of active bleeding. Surgical consultation is recommended. 2. No acute intra-abdominal disease process seen. There is a preliminary report by [facility]. .
[2016-11-30] MEDS ORDERED: CARVEDILOL 3.125 MG TABLET PO SCH (08:00)
--- NOTE | 2016-11-30 08:00 | NUR ---
Dr Ben Contreras order to keep ahead 4 units of blood. Alerted laboratory.
--- NOTE | 2016-11-30 08:10 | NUR ---
here, given update will bring in after PICC inserted.
--- NOTE | 2016-11-30 08:11 | NUR ---
Dr Abigail Hayes calls for update. Relayed how night went. Dr Hayes talks with Dr Contreras at this time.
--- NOTE | 2016-11-30 08:15 | DI ---
Indication: ITS.REASON: low bp PROCEDURE: CT ABD/PELVIS W/O CONTRAST: Encounter: Initial Comparison: CT abdomen and pelvis dated November 29, 2016 Technique: Axial CT images were performed through the abdomen and pelvis without intravenous contrast. Coronal and sagittal two-dimensional reformats. Automated Exposure Control and Iterative Reconstruction dose reducing techniques were utilized. Findings: Right basilar consolidation is new, probably atelectasis. Unenhanced solid organs are unchanged. Trace pericardial effusion. Continued expansion of the left flank hematoma which is not entirely included in the [id number]. No new findings within the abdomen or pelvis. Large amount of colonic stool, particularly in the rectum. No free air. Impression: 1. Continued enlargement of the left flank hematoma with evidence of active bleeding. Again surgical consultation is recommended. 2. New right lower lobe atelectasis. There is a preliminary report by [facility]. .
--- NOTE | 2016-11-30 08:16 | DI ---
Indication: ITS.REASON: ET TUBE PLACEMENT PROCEDURE: CHEST 1 VIEW: Encounter: Initial Comparison: April 08, 2016 Findings: New endotracheal tube in place with the tip projecting 2 cm above the mert. Right minor fissure pleural thickening or scarring. No focal pneumonia. Mild emphysema. No pneumothorax or effusion. Elevated right hemidiaphragm. Heart size and mediastinal contours are stable. Pulmonary vascularity is grossly normal. Impression: Endotracheal tube tip projects in appropriate position. .
--- NOTE | 2016-11-30 08:23 | NUR ---
SBP 176, pulse 70s with intermittant bradycardia and pacing.
[2016-11-30] MEDS ORDERED: GABAPENTIN 600 MG TABLET PO SCH (09:00)
[2016-11-30] MEDS ORDERED: MEMANTINE HCL 28 MG PO SCH (09:00)
[2016-11-30] MEDS ORDERED: DIVALPROEX 125 MG TABLET PO SCH (09:00)
[2016-11-30] MEDS ORDERED: MELOXICAM 7.5 MG TABLET PO SCH (09:00)
[2016-11-30] MEDS ORDERED: FLUDROCORTISONE 0.1 MG TABLET PO SCH (09:00)
[2016-11-30] MEDS ORDERED: VENLAFAXINE 75 MG TABLET PO SCH (09:00)
[2016-11-30] MEDS ORDERED: AMIODARONE 200 MG TABLET PO SCH (09:00)
[2016-11-30] MEDS ORDERED: LISINOPRIL 2.5 MG TABLET PO SCH (09:00)
[2016-11-30] MEDS ORDERED: PRIMIDONE 50 MG TABLET PO SCH (09:00)
--- NOTE | 2016-11-30 09:16 | DI ---
Indication: ITS.REASON: picc line placement PROCEDURE: CHEST 1 VIEW: Encounter: Initial Comparison: November 30, 2016 at 0332 Findings: There is a new right PICC line in place. The line demonstrates a sharp kink at the mid SVC level with the tip doubling back upon itself projecting over the brachiocephalic/SVC junction region. Endotracheal tube remains in stable position. No pneumothorax. Worsening right lower lobe consolidation. Left lung is grossly stable. Heart size and mediastinal contours are stable. Impression: New right PICC line appears kinked in the mid SVC. Recommend repositioning prior to use. Findings were relayed to the clinical service by the wood technologist at the time of the exam. .
--- NOTE | 2016-11-30 09:20 | NUR ---
Second unit of blood finished at this time. SBP still labile 100s to 180s
--- NOTE | 2016-11-30 09:22 | NUR ---
Infusion therapy working still on PICC. SBP 180s, hr 60s
[2016-11-30] MEDS ORDERED: OMEPRAZOLE 20 MG CAPSULE PO SCH (09:33)
[2016-11-30 10:00] LABS: HGB - HEMOGLOBIN 11.6 GM/DL (12-16)
[2016-11-30 10:00] LABS: ALBUMIN 2.9 G/DL (3.5-5.0); ANION GAP 8 MEQ/L (5-15); BUN/CREATININE RATIO 24 RATIO (6-26); CALCIUM 7.7 MG/DL (8.4-10.2); CHLORIDE 99 MEQ/L (98-107); CO2 - CARBON DIOXIDE 26 MEQ/L (22-30); CREATININE 0.9 MG/DL (0.7-1.2); GLOMERULAR FILTRATION RATE 60; GLUCOSE 137 MG/DL (65-110); MAGNESIUM 2.7 MG/DL (1.6-2.3); POTASSIUM 4.1 MEQ/L (3.6-5); SODIUM 133 MEQ/L (134-144)
[2016-11-30] MEDS ORDERED: PANTOPRAZOLE 40mg INJECTION IV SCH (10:00)
[2016-11-30 10:23] LABS: PHOSPHORUS 3.5 MG/DL (2.5-4.5)
--- NOTE | 2016-11-30 11:00 | NUR ---
Radiology here assist Nain Kim with insertion of PICC line, cleared to use.
--- NOTE | 2016-11-30 11:08 | CONSPD ---
GREG RAMOS RADIOLOGICAL EQUIPMENT SPECIALIST 11/30/16 0928: Consultation Info Date DATE: 11/30/16 TIME: 09:25 Date of Consultation: Nov 30, 2016 Attending Physician: Julia Contreras MD Reason for Consultation: bradycardia, pacing HPI - Adult Date DATE: 11/30/16 TIME: 09:25 General Date of Admission Date of Admission: Nov 29, 2016 at 22:13 Chief Complaint: Fall History of Present Illness Diana is an 81 year old female who is well known to Dr. Rosenberg with a history of paroxysmal atrial fibrillation and nonrheumatic aortic valve insufficiency and stenosis who was admitted to [facility] after suffering a fall. She was at home last evening and was transferring from to the commode. Her was helping her and he was not able to keep her up. She did fall to the ground. He was able to get her up to the recliner. Noted that she was having increased pain on the left abdomen and a hematoma that was increasing in size. She does take Eliquis daily and has had several ER visits this month. Was evaluated in ER for epistaxis as well as persistent toe nail bleeding after traumatic toe nail removal at home. At 0128 the RN was at the bedside to reposition the patient and she was unresponsive and bradycardic with HR in the 30's. She then went asystole and code blue started. She had 1 round of CPR before spontaneous perfusion occurred. She was given 0.4mg Narcan, this did not resolve her symptoms. She was found to be continually bradycardic. nurse monitoring was set to pace. She was intubated, STAT labs ordered and CT head performed. CT head was negative for acute findings. CBC did show a drop in Hgb to 8.0 from 10.6. Patient remained on cardiac pacing and cardiology consulted for symptomatic bradycardia. Diana is now in CCU, intubated and sedated. Her and other family are at the bedside. She has received IVF bolus, 2 units of PRBCs, is on Dopamine at 2mcg/kg and Tranexamic Acid drip to help with bleeding related to Eliquis. Her Hgb is 11.2 at this time. HR is variable with external pacing on and off. BP is elevated above normal limits when HR improves. Past Medical History Past Medical History Metabolic: cancer (thyroid), hypercholesterolemia, hypertension, hypothyroidism ENMT: glaucoma Cardiac: A-fib, CAD GI: GERD, constipation Female: UTI, kidney stones Neurological: headaches Musculoskeletal: back pain (lumbar spinal stenosis), neck pain, osteoarthritis Hematologic: anemia Psychological: anxiety, dementia, depression Surgical History General: colonoscopy, gallbladder Cardiac: cardiac cath Joint: foot, knee Current Medications Home Meds Discontinued Reported Medications Ibuprofen (Motrin Ib) 200 Mg Tablet, 400 MG PO Q4H Y for PAIN 11/28/16 Lisinopril (Lisinopril) 2.5 Mg Tablet, 2.5 MG PO DAILY 11/27/16 Fludrocortisone Acetate (Fludrocortisone Acetate) 0.1 Mg Tablet, 0.1 MG PO DAILY , TAB 11/27/16 Cephalexin (Keflex) 250 Mg Capsule, 250 MG PO HS 11/27/16 Carvedilol (Carvedilol) 3.125 Mg Tablet, 1 TAB PO BIDWM 11/27/16 Amiodarone HCl (Amiodarone HCl) 200 Mg Tablet, 200 MG PO DAILY, TAB 11/27/16 Apixaban (Eliquis) 5 Mg Tablet, 5 MG PO BID 11/25/16 Bacillus Coagulans/Inulin (Probiotic Formula Capsule) 1 Each Capsule, 1 CAP PO DAILY 11/15/16 Calcium Carbonate/Vitamin D3 (Calcium 500+D Tablet Chew) 1 Each Tab.chew, 2 TAB PO CHEW DAILY 11/15/16 Cholecalciferol (Vitamin D3) (Vitamin D-400) 400 Unit Tablet, 400 UNIT PO DAILY 11/15/16 Ferrous Sulfate (Slow Fe) 142 Mg Tablet.er, 142 MG PO DAILY 11/15/16 Lorazepam (Lorazepam) 0.5 Mg Tablet, 0.5 MG PO HS Y for ANXIETY 11/15/16 Melatonin (Melatonin) 5 Mg Tablet, 5 MG PO HS Y for INSOMNIA 11/15/16 Meloxicam (Meloxicam) 7.5 Mg Tablet, 7.5 MG PO BID 11/15/16 Nitroglycerin (Nitroglycerin) 0.4 Mg Tab.subl, 0.4 MG PO Q5MIN Y for CHEST PAIN 11/15/16 Ondansetron (Zofran Odt) 4 Mg Tab.rapdis, 4 MG SL QID Y for NAUSEA 11/15/16 Oxycodone HCl/Acetaminophen (Percocet 7.5-325 mg Tablet) 7.5-325 Tablet, 1 TAB PO QID Y for PAIN 11/15/16 Promethazine HCl (Promethazine HCl) 25 Mg Tablet, 25 MG PO Q6H Y for NAUSEA 11/15/16 Acetaminophen (Acetaminophen) 500 Mg Tablet, 1000 MG PO Q8H Y for PAIN 11/15/16 Divalproex Sodium (Divalproex Sodium) 125 Mg Tablet.dr, 125 MG PO BID 05/11/16 Venlafaxine HCl (Venlafaxine HCl) 75 Mg Tablet, 112.5 MG PO BID 05/11/16 Memantine HCl (Namenda Xr) 28 Mg Cap.spr.24, 28 MG PO DAILY 05/11/16 Levothyroxine Sodium (Levothyroxine Sodium) 112 Mcg Tablet, 112 MCG PO ACB 05/11/16 Donepezil HCl (Aricept) 10 Mg Tablet, 10 MG PO HS 04/04/16 Cyclobenzaprine HCl (Cyclobenzaprine HCl) 5 Mg Tablet, 5 MG PO BID Y for PAIN 04/04/16 Primidone (Primidone) 50 Mg Tablet, 50 MG PO TID 08/01/15 Gabapentin (Gabapentin) 600 Mg Tablet, 600 MG PO TID 08/01/15 Omeprazole (Prilosec) 20 Mg Capsule.dr, 20 MG PO DAILY 04/11/14 Allergies: Coded Allergies: Penicillins (Verified Allergy, Severe, ANAPHYLACTIC-ENDED IN ICU FOR A DAY , 11/28/16) Iodinated Contrast Media - Oral and (Verified Allergy, Unknown, RASH,SOA, 11/28/16) Sulfa (Sulfonamide Antibiotics) (Verified Allergy, Unknown, RASH,ITCHY, ) fluoxetine (Verified Allergy, Unknown, 11/28/16) morphine (Verified Allergy, Unknown, 11/28/16) nitrofurantoin (Verified Allergy, Unknown, 11/28/16) aspirin (Verified Adverse Reaction, Intermediate, HIGH BP, SOA, 11/28/16) naproxen sodium (Verified Adverse Reaction, Intermediate, HIGH BP, SOA, ) metoclopramide (Verified Adverse Reaction, Unknown, 11/28/16) PT HAD REGLAN PREOPERATIVELY AND A REACTION THAT SHE WAS UNABLE TO DESCRIBE Family History FOUND: cancer Vaccines NO UNKNOWN unsure T Social History Smoking Status: Never smoker Substance Use Type: does not use Alcohol Intake: none Marital Status: Sexuality: male partner Housing: house Current Occupational Status: retired Advance Directives: No DPOA for Healthcare Only Review of Systems Unable to Obtain ROS Due to: clinical condition Physical Exam General General Nourishment: well nourished, well developed, apparent age General Body Habitus: well groomed Vital Signs Vital Signs Date Time Temp Pulse Resp B/P Pulse Ox O2 Delivery O2 Flow Rate FiO2 11/30/16 07:40 97.0 83 16 180/86 100 Mechanical Ventilator 60 Height (Feet): 5 Height (Inches): 5.00 Telemetry Rhythm: Sinus Bradycardia Comments on bedside external temporary pacing Cardiovascular (brief) Cardiac Brief: FOUND: murmur (II/), regular rhythm, NOT FOUND: pedal edema, regular rate (bradycardia) Abdomen (brief) Abdominal Brief: FOUND: soft Integumentary (brief) Integumentary Brief: FOUND: dry, warm Neurologic RN Documented GCS Eye Opening: (4)Spontaneous Verbal: (5)Oriented Motor: (6)Obeys Commands Total: Psychiatric (brief) FOUND: other (sedated) Laboratory Laboratory Tests Test 11/29/16 20:55 11/29/16 23:50 11/30/16 01:51 11/30/16 02:10 White Blood Count 4.2T/MM3 5.8T/MM3 Red Blood Count 3.33M/MM3 2.44M/MM3 Hemoglobin 10.6GM/DL 8.0GM/DL Hematocrit 32.9% 24.6% Mean Corpuscular Volume 98.8UM3 100.8UM3 Mean Corpuscular Hemoglobin 31.8UUG 32.8UUG Mean Corpuscular Hemoglobin Concent 32.2GM/DL 32.5GM/DL RDW Standard Deviation 49.2FL 49.7FL Platelet Count 225T/MM3 191T/MM3 Mean Platelet Volume 9.7UM3 9.7UM3 Immature Granulocyte % (Auto) 0.5% 0.5% Neutrophils (%) (Auto) 54.7% 40.4% Lymphocytes (%) (Auto) 27.8% 45.3% Monocytes (%) (Auto) 14.8% 12.1% Eosinophils (%) (Auto) 1.7% 1.4% Basophils (%) (Auto) 0.5% 0.3% Absolute Immature Granulocyte (auto 0.02T/MM3 0.03T/MM3 Absolute Neutrophils (auto) 2.3T/MM3 2.3T/MM3 Absolute Lymphocytes (auto) 1.2T/MM3 2.6T/MM3 Absolute Monocytes (auto) 0.6T/MM3 0.7T/MM3 Absolute Eosinophils (auto) 0.1T/MM3 0.1T/MM3 Absolute Basophils (auto) 0.0T/MM3 0.0T/MM3 Prothromb Time International Ratio 1.16 1.15 Turbidity < 20 < 20 Sodium Level 131MEQ/L 132MEQ/L Potassium Level 4.9MEQ/L 4.7MEQ/L Chloride Level 94MEQ/L 99MEQ/L Carbon Dioxide Level 31MEQ/L 30MEQ/L Anion Gap 6MEQ/L 3MEQ/L Blood Urea Nitrogen 22.0MG/DL 22.0MG/DL Creatinine 0.8MG/DL 1.0MG/DL Glomerular Filtration Rate Calc 69 53 BUN/Creatinine Ratio 28RATIO 22RATIO Glucose Level 98MG/DL 127MG/DL Calculated Osmolality 256MOSM/KG 260MOSM/KG Calcium Level 8.6MG/DL 7.8MG/DL Total Bilirubin 0.50MG/DL 0.40MG/DL Icterus Index < 2 < 2 Aspartate Amino Transf (AST/SGOT) 23U/L 19U/L Alanine Aminotransferase (ALT/SGPT) 17U/L 24U/L Alkaline Phosphatase 57U/L 39U/L Total Protein 6.2G/DL 4.8G/DL Albumin 3.5G/DL 2.7G/DL Globulin 2.7G/DL 2.1G/DL Albumin/Globulin Ratio 1.3RATIO 1.3RATIO Chemistry Specimen Hemolysis < 15 < 15 Urine Collection Type Myrick indwelling Urine Color Yellow Urine Turbidity Clear Urine pH 5.5 Urine Specific Scuddy 1.010 Urine Protein Negative Urine Glucose (UA) Negative Urine Ketones Negative Urine Blood Negative Urine Nitrite Negative Urine Bilirubin Negative Urine Urobilinogen 0.2EU/DL Urine Leukocyte Esterase Negative Urinalysis Comment Microscopic not ind. Activated Partial Thromboplast Time 24.8SEC Total Creatine Kinase 60U/L Troponin I < 0.012ng/ml Plasma Lactate 2.5MMOL/L Arterial Blood pH 7.590 Arterial Blood Partial Pressure CO2 26MMHG Arterial Blood pO2 at Patient Temp 386MMHG Arterial Blood HCO3 25MEQ/L Arterial Blood Total CO2 25.7MEQ/L Arterial Blood Oxygen Saturation 100.0% Arterial Blood Base Excess 4.1MMOL/L Oxygen Delivery Method (LAB) Ambu-bag, % Blood Gas Oxygen Liter Flow Blood Gas Oxygen Percent Given 100 Blood Gas Vent Rate Blood Gas Tidal Volume ML Test 11/30/16 04:10 11/30/16 05:48 11/30/16 09:52 White Blood Count 5.0T/MM3 6.6T/MM3 Red Blood Count 2.26M/MM3 2.67M/MM3 Hemoglobin 7.2GM/DL 8.5GM/DL 11.6GM/DL Hematocrit 21.9% 26.6% Mean Corpuscular Volume 96.9UM3 99.6UM3 Mean Corpuscular Hemoglobin 31.9UUG 31.8UUG Mean Corpuscular Hemoglobin Concent 32.9GM/DL 32.0GM/DL RDW Standard Deviation 45.3FL 48.2FL Platelet Count 163T/MM3 207T/MM3 Mean Platelet Volume 8.9UM3 10.1UM3 Immature Granulocyte % (Auto) 0.8% 0.6% Neutrophils (%) (Auto) 67.1% 67.0% Lymphocytes (%) (Auto) 20.3% 20.9% Monocytes (%) (Auto) 10.8% 10.5% Eosinophils (%) (Auto) 0.8% 0.8% Basophils (%) (Auto) 0.2% 0.2% Absolute Immature Granulocyte (auto 0.04T/MM3 0.04T/MM3 Absolute Neutrophils (auto) 3.4T/MM3 4.4T/MM3 Absolute Lymphocytes (auto) 1.0T/MM3 1.4T/MM3 Absolute Monocytes (auto) 0.5T/MM3 0.7T/MM3 Absolute Eosinophils (auto) 0.0T/MM3 0.1T/MM3 Absolute Basophils (auto) 0.0T/MM3 0.0T/MM3 Arterial Blood pH 7.480 Arterial Blood Partial Pressure CO2 38MMHG Arterial Blood pO2 at Patient Temp 82MMHG Arterial Blood HCO3 28MEQ/L Arterial Blood Total CO2 29.5MEQ/L Arterial Blood Oxygen Saturation 97.0% Arterial Blood Base Excess 4.6MMOL/L Oxygen Delivery Method (LAB) Vent-endotrach, % Blood Gas Oxygen Liter Flow Blood Gas Oxygen Percent Given 60 Blood Gas Vent Rate Blood Gas Tidal Volume ML Turbidity < 20 < 20 Sodium Level 133MEQ/L 133MEQ/L Potassium Level 4.3MEQ/L 4.1MEQ/L Chloride Level 104MEQ/L 99MEQ/L Carbon Dioxide Level 26MEQ/L 26MEQ/L Anion Gap 3MEQ/L 8MEQ/L Blood Urea Nitrogen 21.0MG/DL 22.0MG/DL Creatinine 0.9MG/DL 0.9MG/DL Glomerular Filtration Rate Calc 60 60 BUN/Creatinine Ratio 23RATIO 24RATIO Glucose Level 131MG/DL 137MG/DL Calculated Osmolality 261MOSM/KG 261MOSM/KG Calcium Level 7.6MG/DL 7.7MG/DL Icterus Index < 2 < 2 Chemistry Specimen Hemolysis < 15 < 15 Magnesium Level 2.7MG/DL Troponin I < 0.012ng/ml Albumin 2.9G/DL Laboratory Tests Test 11/29/16 20:55 11/29/16 23:50 11/30/16 01:51 11/30/16 02:10 White Blood Count 4.2T/MM3 5.8T/MM3 Red Blood Count 3.33M/MM3 2.44M/MM3 Hemoglobin 10.6GM/DL 8.0GM/DL Hematocrit 32.9% 24.6% Mean Corpuscular Volume 98.8UM3 100.8UM3 Mean Corpuscular Hemoglobin 31.8UUG 32.8UUG Mean Corpuscular Hemoglobin Concent 32.2GM/DL 32.5GM/DL RDW Standard Deviation 49.2FL 49.7FL Platelet Count 225T/MM3 191T/MM3 Mean Platelet Volume 9.7UM3 9.7UM3 Immature Granulocyte % (Auto) 0.5% 0.5% Neutrophils (%) (Auto) 54.7% 40.4% Lymphocytes (%) (Auto) 27.8% 45.3% Monocytes (%) (Auto) 14.8% 12.1% Eosinophils (%) (Auto) 1.7% 1.4% Basophils (%) (Auto) 0.5% 0.3% Absolute Immature Granulocyte (auto 0.02T/MM3 0.03T/MM3 Absolute Neutrophils (auto) 2.3T/MM3 2.3T/MM3 Absolute Lymphocytes (auto) 1.2T/MM3 2.6T/MM3 Absolute Monocytes (auto) 0.6T/MM3 0.7T/MM3 Absolute Eosinophils (auto) 0.1T/MM3 0.1T/MM3 Absolute Basophils (auto) 0.0T/MM3 0.0T/MM3 Prothromb Time International Ratio 1.16 1.15 Turbidity < 20 < 20 Sodium Level 131MEQ/L 132MEQ/L Potassium Level 4.9MEQ/L 4.7MEQ/L Chloride Level 94MEQ/L 99MEQ/L Carbon Dioxide Level 31MEQ/L 30MEQ/L Anion Gap 6MEQ/L 3MEQ/L Blood Urea Nitrogen 22.0MG/DL 22.0MG/DL Creatinine 0.8MG/DL 1.0MG/DL Glomerular Filtration Rate Calc 69 53 BUN/Creatinine Ratio 28RATIO 22RATIO Glucose Level 98MG/DL 127MG/DL Calculated Osmolality 256MOSM/KG 260MOSM/KG Calcium Level 8.6MG/DL 7.8MG/DL Total Bilirubin 0.50MG/DL 0.40MG/DL Icterus Index < 2 < 2 Aspartate Amino Transf (AST/SGOT) 23U/L 19U/L Alanine Aminotransferase (ALT/SGPT) 17U/L 24U/L Alkaline Phosphatase 57U/L 39U/L Total Protein 6.2G/DL 4.8G/DL Albumin 3.5G/DL 2.7G/DL Globulin 2.7G/DL 2.1G/DL Albumin/Globulin Ratio 1.3RATIO 1.3RATIO Chemistry Specimen Hemolysis < 15 < 15 Urine Collection Type Myrick indwelling Urine Color Yellow Urine Turbidity Clear Urine pH 5.5 Urine Specific Scuddy 1.010 Urine Protein Negative Urine Glucose (UA) Negative Urine Ketones Negative Urine Blood Negative Urine Nitrite Negative Urine Bilirubin Negative Urine Urobilinogen 0.2EU/DL Urine Leukocyte Esterase Negative Urinalysis Comment Microscopic not ind. Activated Partial Thromboplast Time 24.8SEC Total Creatine Kinase 60U/L Troponin I < 0.012ng/ml Plasma Lactate 2.5MMOL/L Arterial Blood pH 7.590 Arterial Blood Partial Pressure CO2 26MMHG Arterial Blood pO2 at Patient Temp 386MMHG Arterial Blood HCO3 25MEQ/L Arterial Blood Total CO2 25.7MEQ/L Arterial Blood Oxygen Saturation 100.0% Arterial Blood Base Excess 4.1MMOL/L Oxygen Delivery Method (LAB) Ambu-bag, % Blood Gas Oxygen Liter Flow Blood Gas Oxygen Percent Given 100 Blood Gas Vent Rate Blood Gas Tidal Volume ML Test 11/30/16 04:10 11/30/16 05:48 White Blood Count 5.0T/MM3 6.6T/MM3 Red Blood Count 2.26M/MM3 2.67M/MM3 Hemoglobin 7.2GM/DL 8.5GM/DL Hematocrit 21.9% 26.6% Mean Corpuscular Volume 96.9UM3 99.6UM3 Mean Corpuscular Hemoglobin 31.9UUG 31.8UUG Mean Corpuscular Hemoglobin Concent 32.9GM/DL 32.0GM/DL RDW Standard Deviation 45.3FL 48.2FL Platelet Count 163T/MM3 207T/MM3 Mean Platelet Volume 8.9UM3 10.1UM3 Immature Granulocyte % (Auto) 0.8% 0.6% Neutrophils (%) (Auto) 67.1% 67.0% Lymphocytes (%) (Auto) 20.3% 20.9% Monocytes (%) (Auto) 10.8% 10.5% Eosinophils (%) (Auto) 0.8% 0.8% Basophils (%) (Auto) 0.2% 0.2% Absolute Immature Granulocyte (auto 0.04T/MM3 0.04T/MM3 Absolute Neutrophils (auto) 3.4T/MM3 4.4T/MM3 Absolute Lymphocytes (auto) 1.0T/MM3 1.4T/MM3 Absolute Monocytes (auto) 0.5T/MM3 0.7T/MM3 Absolute Eosinophils (auto) 0.0T/MM3 0.1T/MM3 Absolute Basophils (auto) 0.0T/MM3 0.0T/MM3 Arterial Blood pH 7.480 Arterial Blood Partial Pressure CO2 38MMHG Arterial Blood pO2 at Patient Temp 82MMHG Arterial Blood HCO3 28MEQ/L Arterial Blood Total CO2 29.5MEQ/L Arterial Blood Oxygen Saturation 97.0% Arterial Blood Base Excess 4.6MMOL/L Oxygen Delivery Method (LAB) Vent-endotrach, % Blood Gas Oxygen Liter Flow Blood Gas Oxygen Percent Given 60 Blood Gas Vent Rate Blood Gas Tidal Volume ML Turbidity < 20 Sodium Level 133MEQ/L Potassium Level 4.3MEQ/L Chloride Level 104MEQ/L Carbon Dioxide Level 26MEQ/L Anion Gap 3MEQ/L Blood Urea Nitrogen 21.0MG/DL Creatinine 0.9MG/DL Glomerular Filtration Rate Calc 60 BUN/Creatinine Ratio 23RATIO Glucose Level 131MG/DL Calculated Osmolality 261MOSM/KG Calcium Level 7.6MG/DL Icterus Index < 2 Chemistry Specimen Hemolysis < 15 EKG Sinus bradycardia, sinus arrhythmia and 1st degree AV block. Radiology DATE OF EXAM: 11/30/16 ORDERING DOCTOR: MAGDALENA OCHOA MD TYPE OF EXAM: CT ABD/PELVIS W/O CONTRAST REASON FOR EXAM: low bp Indication: ITS.REASON: low bp PROCEDURE: CT ABD/PELVIS W/O CONTRAST: Encounter: Initial Comparison: CT abdomen and pelvis dated November 29, 2016 Technique: Axial CT images were performed through the abdomen and pelvis without intravenous contrast. Coronal and sagittal two-dimensional reformats. Automated Exposure Control and Iterative Reconstruction dose reducing techniques were utilized. Findings: Right basilar consolidation is new, probably atelectasis. Unenhanced solid organs are unchanged. Trace pericardial effusion. Continued expansion of the left flank hematoma which is not entirely included in the [id number]. No new findings within the abdomen or pelvis. Large amount of colonic stool, particularly in the rectum. No free air. Impression: 1. Continued enlargement of the left flank hematoma with evidence of active bleeding. Again surgical consultation is recommended. 2. New right lower lobe atelectasis. There is a preliminary report by virtual radiologic. DATE OF EXAM: 11/30/16 ORDERING DOCTOR: MAGDALENA OCHOA MD TYPE OF EXAM: CT HEAD W/O CONTRAST REASON FOR EXAM: post code Indication: ITS.REASON: post code PROCEDURE: CT HEAD W/O CONTRAST: Encounter: Initial Comparison: November 27, 2016 Technique: Axial CT images through the head were performed without contrast. Iterative Reconstruction dose reducing technique was utilized. FINDINGS: Moderate atrophy. The ventricles are stable. There are extensive confluent areas of low attenuation in the white matter which most likely represent changes from chronic microvascular ischemia. The brainstem, cerebellum, and cerebral hemispheres otherwise have a normal morphology and CT attenuation. There is no evidence of midline displacement. No hemorrhage, signs of acute territorial stroke, mass effect, mass lesions, or edema is evident. The visualized portions of the skull base, midface, and calvarium demonstrate no abnormality. The paranasal sinuses are well aerated and free of significant disease. The tympanic and mastoid cavities appear normal. IMPRESSION: No acute intracranial abnormality or hemorrhage. There is a preliminary report by virtual radiologic. DATE OF EXAM: 11/30/16 ORDERING DOCTOR: MAGDALENA OCHOA MD TYPE OF EXAM: CHEST 1 VIEW REASON FOR EXAM: ET TUBE PLACEMENT Indication: ITS.REASON: ET TUBE PLACEMENT PROCEDURE: CHEST 1 VIEW: Encounter: Initial Comparison: April 08, 2016 Findings: New endotracheal tube in place with the tip projecting 2 cm above the mert. Right minor fissure pleural thickening or scarring. No focal pneumonia. Mild emphysema. No pneumothorax or effusion. Elevated right hemidiaphragm. Heart size and mediastinal contours are stable. Pulmonary vascularity is grossly normal. Impression: Endotracheal tube tip projects in appropriate position Impression/Recommendation Problems: (1) Bradycardia Status: Acute Assessment & Plan: on bedside external temporary pacing (2) Abdominal hematoma Status: Acute Assessment & Plan: Continued enlargement of the left flank hematoma with evidence of active bleeding per CT of Abd/Pelvis. (3) Fall Assessment & Plan: Unclear is fall was caused by bradycardia/ syncope, HR 59 on presentation to ED (4) Paroxysmal atrial fibrillation Status: Chronic Assessment & Plan: Patient takes Eliquis for A Fib, last taken yesterday morning 11/29/16 0800 (5) Aortic stenosis Status: Chronic Assessment & Plan: continue current therapy, routine monitoring Recommendation Diana is on bedside external temporary pacing. She needs Emergent temporary Pacemaker now. Cardiac catheterization lab is occupied at this time. Will plan temporary pacemaker, possible permanent pacemaker when [place] laborer is available. Patient is not stable for transfer to [facility] without temporary pacemaker insertion. Thank you for allowing us to participate in this patient's care, we will follow along with you. CONSTANTIN ROSENBERG MD 12/06/16 8947: Past Medical History Current Medications Home Meds Discontinued Reported Medications Ibuprofen (Motrin Ib) 200 Mg Tablet, 400 MG PO Q4H Y for PAIN 11/28/16 Lisinopril (Lisinopril) 2.5 Mg Tablet, 2.5 MG PO DAILY 11/27/16 Fludrocortisone Acetate (Fludrocortisone Acetate) 0.1 Mg Tablet, 0.1 MG PO DAILY , TAB 3/26/17 Cephalexin (Keflex) 250 Mg Capsule, 250 MG PO HS 11/27/16 Carvedilol (Carvedilol) 3.125 Mg Tablet, 1 TAB PO BIDWM 11/27/16 Amiodarone HCl (Amiodarone HCl) 200 Mg Tablet, 200 MG PO DAILY, TAB 11/27/16 Apixaban (Eliquis) 5 Mg Tablet, 5 MG PO BID 11/25/16 Bacillus Coagulans/Inulin (Probiotic Formula Capsule) 1 Each Capsule, 1 CAP PO DAILY 11/15/16 Calcium Carbonate/Vitamin D3 (Calcium 500+D Tablet Chew) 1 Each Tab.chew, 2 TAB PO CHEW DAILY 11/15/16 Cholecalciferol (Vitamin D3) (Vitamin D-400) 400 Unit Tablet, 400 UNIT PO DAILY 11/15/16 Ferrous Sulfate (Slow Fe) 142 Mg Tablet.er, 142 MG PO DAILY 11/15/16 Lorazepam (Lorazepam) 0.5 Mg Tablet, 0.5 MG PO HS Y for ANXIETY 11/15/16 Melatonin (Melatonin) 5 Mg Tablet, 5 MG PO HS Y for INSOMNIA 11/15/16 Meloxicam (Meloxicam) 7.5 Mg Tablet, 7.5 MG PO BID 11/15/16 Nitroglycerin (Nitroglycerin) 0.4 Mg Tab.subl, 0.4 MG PO Q5MIN Y for CHEST PAIN 11/15/16 Ondansetron (Zofran Odt) 4 Mg Tab.rapdis, 4 MG SL QID Y for NAUSEA 11/15/16 Oxycodone HCl/Acetaminophen (Percocet 7.5-325 mg Tablet) 7.5-325 Tablet, 1 TAB PO QID Y for PAIN 11/15/16 Promethazine HCl (Promethazine HCl) 25 Mg Tablet, 25 MG PO Q6H Y for NAUSEA 11/15/16 Acetaminophen (Acetaminophen) 500 Mg Tablet, 1000 MG PO Q8H Y for PAIN 11/15/16 Divalproex Sodium (Divalproex Sodium) 125 Mg Tablet.dr, 125 MG PO BID 05/11/16 Venlafaxine HCl (Venlafaxine HCl) 75 Mg Tablet, 112.5 MG PO BID 05/11/16 Memantine HCl (Namenda Xr) 28 Mg Cap.spr.24, 28 MG PO DAILY 05/11/16 Levothyroxine Sodium (Levothyroxine Sodium) 112 Mcg Tablet, 112 MCG PO ACB 05/11/16 Donepezil HCl (Aricept) 10 Mg Tablet, 10 MG PO HS 04/04/16 Cyclobenzaprine HCl (Cyclobenzaprine HCl) 5 Mg Tablet, 5 MG PO BID Y for PAIN 04/04/16 Primidone (Primidone) 50 Mg Tablet, 50 MG PO TID 08/01/15 Gabapentin (Gabapentin) 600 Mg Tablet, 600 MG PO TID 08/01/15 Omeprazole (Prilosec) 20 Mg Capsule.dr, 20 MG PO DAILY 04/11/14 Allergies: Coded Allergies: Penicillins (Verified Allergy, Severe, ANAPHYLACTIC-ENDED IN ICU FOR A DAY , 11/28/16) Iodinated Contrast Media - Oral and (Verified Allergy, Unknown, RASH,SOA, 11/28/16) Sulfa (Sulfonamide Antibiotics) (Verified Allergy, Unknown, RASH,ITCHY, ) fluoxetine (Verified Allergy, Unknown, 11/28/16) morphine (Verified Allergy, Unknown, 11/28/16) nitrofurantoin (Verified Allergy, Unknown, 11/28/16) aspirin (Verified Adverse Reaction, Intermediate, HIGH BP, SOA, 11/28/16) naproxen sodium (Verified Adverse Reaction, Intermediate, HIGH BP, SOA, ) metoclopramide (Verified Adverse Reaction, Unknown, 11/28/16) PT HAD REGLAN PREOPERATIVELY AND A REACTION THAT SHE WAS UNABLE TO DESCRIBE Impression/Recommendation Recommendation After examining the patient I agree with the above assessment. I am involved in the formulation of the patient's plan of care. GREG RAMOS RADIOLOGICAL EQUIPMENT SPECIALIST Nov 30, 2016 09:28 CONSTANTIN ROSENBERG MD Dec 06, 2016 14:53
[2016-11-30] MEDS ORDERED: EPINEPHRINE 1mg/10ml PFS IV ONE (11:18)
[2016-11-30] MEDS ORDERED: NALOXONE IV ONE (11:18)
[2016-11-30] MEDS ORDERED: HEPARIN 1,000units in NS 500ml BAG IV ONE ×2 (12:41→13:20)
[2016-11-30] MEDS ORDERED: LIDOCAINE 1% (10mg/ml) 30ml SDV ONE ×3 (12:41→14:03)
--- NOTE | 2016-11-30 13:17 | DI ---
Indication:ITS.REASON: ADJUST PICC LINE BEDSIDE Procedure:PICC LINE REPOSITION w FLUORO PICC LINE REPOSITION: Using aseptic technique and fluoroscopic guidance, a .018 guidewire was advanced through the existing right-sided triple-lumen PICC line. Then using fluoroscopic guidance, the guidewire was utilized to manipulate the PICC line until the tip was near the cavoatrial junction. External catheter length is 4 cm. A fluoroscopic image was then taken and archived. I was able to aspirate blood and inject freely through the ports. The procedure was completed without complication. Impression:Successful repositioning of the tip of the patient's existing right-sided triple lumen PICC line. The tip resides near the cavoatrial junction. Fluoroscopy dose: 620.24 mrad. Fluoroscopy time is 48 seconds Nain Woo RPA/CARLA performed this under my personal supervision. .
[2016-11-30] MEDS ORDERED: MIDAZOLAM 2mg/2ml INJECTION IV ONE (13:21)
[2016-11-30] MEDS ORDERED: ROCURONIUM 50mg/5ml INJECTION IV ONE (13:21)
--- NOTE | 2016-11-30 13:40 | NUR ---
Paced 20-30% SBP 150s-160s, responds, sleeps. To CVL at this time for Pacemaker.
[2016-11-30] MEDS ORDERED: DiphenhydrAMINE 50 MG/ML INJECTION ONE (13:59)
[2016-11-30] MEDS ORDERED: VANCOMYCIN 1,000 MG in NORMAL SALINE 250 ML IV ONE (14:00)
[2016-11-30] MEDS ORDERED: BACITRACIN INJ. 50,000 UNITS VL ONE (14:18)
[2016-11-30] MEDS ORDERED: [UNRECOGNIZED DRUG - SUPPLY] TOP ONE (14:23)
--- NOTE | 2016-11-30 15:19 | NUR ---
CM CM IN ROLE EXPLAINED, CONTACT INFORMATION PROVIDED. PT FAMILY IS UNSURE OF DC PLAN AT THIS TIME WILL DISCUSS WHEN MORE APPROPRIATE. PT/DTR AWARE TO CONTACT CM SHOULD NEEDS ARISE. Addendum: 11/30/16 at 1604 by LARRY AGUILAR RN Amended: Links added.
[2016-11-30 15:37] LABS: HGB - HEMOGLOBIN 8.9 GM/DL (12-16)
--- NOTE | 2016-11-30 15:45 | DI ---
Indication: ITS.REASON: PPM PROCEDURE: CHEST 1 VIEW: Encounter: Initial Comparison: November 30, 2016 at 0910 Findings: Right PICC line has been repositioned with the tip now projecting over the lower SVC. It is somewhat obscured by the new overlapping left dual lead cardiac pacemaker leads. There are right atrial and right ventricular leads without evidence of lead fracture or discontinuity. Endotracheal tube remains in place. New small left apical pneumothorax, on the order of 15-20%. Atelectasis or fluid along the minor fissure. Heart size and mediastinal contours are stable. Pulmonary vascularity is grossly normal. Impression: 1. New left cardiac pacemaker with a small left pneumothorax. Recommend close radiographic follow-up due to the patient's mechanical ventilation. 2. Repositioning of the right PICC line. Impression 1 was called to the ordering physician at 1540 on November 30, 2016. .
--- NOTE | 2016-11-30 16:00 | NUR ---
Back from having permanant pacemaker inserted in [employer]. returns with Dopamine DCd, SBPs in the 90s.
--- NOTE | 2016-11-30 16:36 | DSPDOC ---
General Date Date DATE: 11/30/16 TIME: 16:21 Attending Physician Julia Contreras MD Admitting Physician Julia Contreras MD Consulting Physician Constantin Rosenberg MD Admitting Diagnosis abdominal hematoma Discharge Diagnosis Left flank/Abdominal subcutaneous hematoma Acute blood loss anemia Bradycardia severe with heart block Status post CODE BLUE Aortic stenosis Chronic anticoagulation with Eliquis History of A. fib Fall at home Dementia Hypothyroidism with elevated TSH History of cardiac arrhythmia Procedures Mechanical ventilation Left tibial intraosseous placed the morning of 11/30/2016 PICC line placement 11/30/2016 Permanent pacemaker placement 11/30/2016-Dr. Rosenberg Laboratory Laboratory Tests Test 11/29/16 20:55 11/29/16 23:50 11/30/16 01:51 11/30/16 02:10 White Blood Count 4.2T/MM3 (4.5-11.0) 5.8T/MM3 (4.5-11.0) Red Blood Count 3.33M/MM3 (4.00-5.20) 2.44M/MM3 (4.00-5.20) Hemoglobin 10.6GM/DL (12-16) 8.0GM/DL (12-16) Hematocrit 32.9% (36-46) 24.6% (36-46) Mean Corpuscular Volume 98.8UM3 (80-100) 100.8UM3 (80-100) Mean Corpuscular Hemoglobin 31.8UUG (26-34) 32.8UUG (26-34) Mean Corpuscular Hemoglobin Concent 32.2GM/DL (31-37) 32.5GM/DL (31-37) RDW Standard Deviation 49.2FL (36.9-50.2) 49.7FL (36.9-50.2) Platelet Count 225T/MM3 (130-400) 191T/MM3 (130-400) Mean Platelet Volume 9.7UM3 (9.4-12.4) 9.7UM3 (9.4-12.4) Immature Granulocyte % (Auto) 0.5% (0.0-0.5) 0.5% (0.0-0.5) Neutrophils (%) (Auto) 54.7% (33-66) 40.4% (33-66) Lymphocytes (%) (Auto) 27.8% (23-45) 45.3% (23-45) Monocytes (%) (Auto) 14.8% (0-9.0) 12.1% (0-9.0) Eosinophils (%) (Auto) 1.7% (0-4) 1.4% (0-4) Basophils (%) (Auto) 0.5% (0-2) 0.3% (0-2) Absolute Immature Granulocyte (auto 0.02T/MM3 (0.00-0.03) 0.03T/MM3 (0.00-0.03) Absolute Neutrophils (auto) 2.3T/MM3 (1.8-7.7) 2.3T/MM3 (1.8-7.7) Absolute Lymphocytes (auto) 1.2T/MM3 (1-4.8) 2.6T/MM3 (1-4.8) Absolute Monocytes (auto) 0.6T/MM3 (0-0.8) 0.7T/MM3 (0-0.8) Absolute Eosinophils (auto) 0.1T/MM3 (0-0.5) 0.1T/MM3 (0-0.5) Absolute Basophils (auto) 0.0T/MM3 (0-0.2) 0.0T/MM3 (0-0.2) Prothromb Time International Ratio 1.16 (0.76-1.04) 1.15 (0.76-1.04) Turbidity < 20 (0-20) < 20 (0-20) Sodium Level 131MEQ/L (134-144) 132MEQ/L (134-144) Potassium Level 4.9MEQ/L (3.6-5) 4.7MEQ/L (3.6-5) Chloride Level 94MEQ/L (98-107) 99MEQ/L (98-107) Carbon Dioxide Level 31MEQ/L (22-30) 30MEQ/L (22-30) Anion Gap 6MEQ/L (5-15) 3MEQ/L (5-15) Blood Urea Nitrogen 22.0MG/DL (7-17) 22.0MG/DL (7-17) Creatinine 0.8MG/DL (0.7-1.2) 1.0MG/DL (0.7-1.2) Glomerular Filtration Rate Calc 69 53 BUN/Creatinine Ratio 28RATIO (6-26) 22RATIO (6-26) Glucose Level 98MG/DL (65-110) 127MG/DL (65-110) Calculated Osmolality 256MOSM/KG (261-280) 260MOSM/KG (261-280) Calcium Level 8.6MG/DL (8.4-10.2) 7.8MG/DL (8.4-10.2) Total Bilirubin 0.50MG/DL (0.20-1.30) 0.40MG/DL (0.20-1.30) Icterus Index < 2 (0-7) < 2 (0-7) Aspartate Amino Transf (AST/SGOT) 23U/L (14-36) 19U/L (14-36) Alanine Aminotransferase (ALT/SGPT) 17U/L (9-52) 24U/L (9-52) Alkaline Phosphatase 57U/L (38-126) 39U/L (38-126) Total Protein 6.2G/DL (6.3-8.2) 4.8G/DL (6.3-8.2) Albumin 3.5G/DL (3.5-5.0) 2.7G/DL (3.5-5.0) Globulin 2.7G/DL (2.4-3.6) 2.1G/DL (2.4-3.6) Albumin/Globulin Ratio 1.3RATIO (1.1-2.2) 1.3RATIO (1.1-2.2) Chemistry Specimen Hemolysis < 15 (0-25) < 15 (0-25) Urine Collection Type Myrick indwelling Urine Color Yellow (YELLOW) Urine Turbidity Clear (CLEAR) Urine pH 5.5 (5.0-8.0) Urine Specific Paradis 1.010 (1.015-1.025) Urine Protein Negative (NEGATIVE) Urine Glucose (UA) Negative (NEGATIVE) Urine Ketones Negative (NEGATIVE) Urine Blood Negative (NEGATIVE) Urine Nitrite Negative (NEGATIVE) Urine Bilirubin Negative (NEGATIVE) Urine Urobilinogen 0.2EU/DL (NORMAL) Urine Leukocyte Esterase Negative (NEGATIVE) Urinalysis Comment Microscopic not ind. Activated Partial Thromboplast Time 24.8SEC (24-36) Total Creatine Kinase 60U/L (30-135) Creatine Kinase MB 0.9ng/mL (0.0-3.4) Troponin I < 0.012ng/ml (0-0.12) Plasma Lactate 2.5MMOL/L (0.6-2.2) Arterial Blood pH 7.590 (7.350-7.450) Arterial Blood Partial Pressure CO2 26MMHG (34-45) Arterial Blood pO2 at Patient Temp 386MMHG (80-100) Arterial Blood HCO3 25MEQ/L (22-26) Arterial Blood Total CO2 25.7MEQ/L (23-27) Arterial Blood Oxygen Saturation 100.0% (95.0-98.0) Arterial Blood Base Excess 4.1MMOL/L (-2.0-2.0) Oxygen Delivery Method (LAB) Ambu-bag, % Blood Gas Oxygen Liter Flow Blood Gas Oxygen Percent Given 100 Blood Gas Vent Rate (0-30) Blood Gas Tidal Volume ML (0-1200) Test 11/30/16 04:10 11/30/16 05:48 11/30/16 09:52 11/30/16 15:29 White Blood Count 5.0T/MM3 (4.5-11.0) 6.6T/MM3 (4.5-11.0) Red Blood Count 2.26M/MM3 (4.00-5.20) 2.67M/MM3 (4.00-5.20) Hemoglobin 7.2GM/DL (12-16) 8.5GM/DL (12-16) 11.6GM/DL (12-16) 8.9GM/DL (12-16) Hematocrit 21.9% (36-46) 26.6% (36-46) Mean Corpuscular Volume 96.9UM3 (80-100) 99.6UM3 (80-100) Mean Corpuscular Hemoglobin 31.9UUG (26-34) 31.8UUG (26-34) Mean Corpuscular Hemoglobin Concent 32.9GM/DL (31-37) 32.0GM/DL (31-37) RDW Standard Deviation 45.3FL (36.9-50.2) 48.2FL (36.9-50.2) Platelet Count 163T/MM3 (130-400) 207T/MM3 (130-400) Mean Platelet Volume 8.9UM3 (9.4-12.4) 10.1UM3 (9.4-12.4) Immature Granulocyte % (Auto) 0.8% (0.0-0.5) 0.6% (0.0-0.5) Neutrophils (%) (Auto) 67.1% (33-66) 67.0% (33-66) Lymphocytes (%) (Auto) 20.3% (23-45) 20.9% (23-45) Monocytes (%) (Auto) 10.8% (0-9.0) 10.5% (0-9.0) Eosinophils (%) (Auto) 0.8% (0-4) 0.8% (0-4) Basophils (%) (Auto) 0.2% (0-2) 0.2% (0-2) Absolute Immature Granulocyte (auto 0.04T/MM3 (0.00-0.03) 0.04T/MM3 (0.00-0.03) Absolute Neutrophils (auto) 3.4T/MM3 (1.8-7.7) 4.4T/MM3 (1.8-7.7) Absolute Lymphocytes (auto) 1.0T/MM3 (1-4.8) 1.4T/MM3 (1-4.8) Absolute Monocytes (auto) 0.5T/MM3 (0-0.8) 0.7T/MM3 (0-0.8) Absolute Eosinophils (auto) 0.0T/MM3 (0-0.5) 0.1T/MM3 (0-0.5) Absolute Basophils (auto) 0.0T/MM3 (0-0.2) 0.0T/MM3 (0-0.2) Arterial Blood pH 7.480 (7.350-7.450) Arterial Blood Partial Pressure CO2 38MMHG (34-45) Arterial Blood pO2 at Patient Temp 82MMHG (80-100) Arterial Blood HCO3 28MEQ/L (22-26) Arterial Blood Total CO2 29.5MEQ/L (23-27) Arterial Blood Oxygen Saturation 97.0% (95.0-98.0) Arterial Blood Base Excess 4.6MMOL/L (-2.0-2.0) Oxygen Delivery Method (LAB) Vent-endotrach, % Blood Gas Oxygen Liter Flow Blood Gas Oxygen Percent Given 60 Blood Gas Vent Rate (0-30) Blood Gas Tidal Volume ML (0-1200) Turbidity < 20 (0-20) < 20 (0-20) Sodium Level 133MEQ/L (134-144) 133MEQ/L (134-144) Potassium Level 4.3MEQ/L (3.6-5) 4.1MEQ/L (3.6-5) Chloride Level 104MEQ/L (98-107) 99MEQ/L (98-107) Carbon Dioxide Level 26MEQ/L (22-30) 26MEQ/L (22-30) Anion Gap 3MEQ/L (5-15) 8MEQ/L (5-15) Blood Urea Nitrogen 21.0MG/DL (7-17) 22.0MG/DL (7-17) Creatinine 0.9MG/DL (0.7-1.2) 0.9MG/DL (0.7-1.2) Glomerular Filtration Rate Calc 60 60 BUN/Creatinine Ratio 23RATIO (6-26) 24RATIO (6-26) Glucose Level 131MG/DL (65-110) 137MG/DL (65-110) Calculated Osmolality 261MOSM/KG (261-280) 261MOSM/KG (261-280) Calcium Level 7.6MG/DL (8.4-10.2) 7.7MG/DL (8.4-10.2) Icterus Index < 2 (0-7) < 2 (0-7) Chemistry Specimen Hemolysis < 15 (0-25) < 15 (0-25) Phosphorus Level 3.5MG/DL (2.5-4.5) Magnesium Level 2.7MG/DL (1.6-2.3) Troponin I < 0.012ng/ml (0-0.12) Albumin 2.9G/DL (3.5-5.0) Thyroid Stimulating Hormone (TSH) 20.30MIU/L (0.47-4.68) Radiology CT abdomen and pelvis without contrast 11/29/2016 shows a large left lower abdominal and upper pelvic subcutaneous hematoma with suggestion of active bleeding. No acute intra-abdominal disease process seen Repeat CT abdomen and pelvis without contrast on 11/30/2016 showed continued enlargement of the left flank hematoma with evidence of active bleeding. Again surgical consultation is recommended. Right lower lobe atelectasis. CT head shows no acute intracranial abnormality or hemorrhage on 11/30/2016 Chest x-ray 11/30/2016 post PICC line placement shows a new left cardiac pacemaker with a small left pneumothorax. Recommend close radiographic follow- up due to the patient's mechanical ventilation. Repositioning of the right PICC line with the tip now projecting over the lower SVC. History of Present Illness 81 yo F presented to the ED this PM after falling while trying to transfer from her wheel chair to [facility]. Her was helping her and was not able to keep her up. She was given 100mcg of fentanyl by EMS and is somnolent and a poor historian. She reports that her left hip hurts and she appears to have a large hematoma on her LLQ and hip. She take eliquis 5mg BID for A. Fib. Patient has been seen several times in the ER over the past month for concerns of bleeding with epitasis and a toe nail that would not stop bleeding. She was admitted for monitoring of her hematoma and PT/OT eval and treat. Hospital Course 11/30/2016-Dr. Contreras I've seen and examined the patient and reviewed the H&P above. I discussed the patient with Dr. Mary earlier this morning. The patient is currently on the ventilator in CCU and is not able to give a history. Past medical history: Agree with above. The patient does not have history of seizures. She is on divalproex for headaches. She has history of atrial fibrillation. Medications and allergies were reviewed Family history includes ovarian cancer in her sister. Parents and siblings of unknown cause Social history patient is a nonsmoker nondrinker. She requests full code at this time per family. Unable to obtain review of systems Physical exam currently the patient is sedated and on the ventilator. Heart rate is in the low 60s and occasionally drops lower requiring intermittent external pacing. Blood pressure is 200/85 secondary to dopamine which she is on to help with heart rate. HEENT reveals the patient to have oral intubation. Chest is clear to auscultation bilaterally. Cardiovascular reveals a bradycardic rate with irregular rhythm. Abdomen is soft and nontender. Left flank/side reveals a large hematoma. Abdomen is soft and nontender with hypoactive bowel sounds. Extremities are free of edema. Skin is warm and dry. Impression Severe bradycardia requiring external pacing Acute blood loss anemia secondary to abdominal wall hematoma post fall in a patient on anticoagulation Chronic anticoagulation with Eliquis Status post CODE BLUE History of A. fib on amiodarone and Coreg Dementia Aortic stenosis Coronary artery disease Hypertension Depression Chronic headaches Plan Earlier on my arrival around 7:30 this morning the patient was fairly hypotensive and bradycardic. She was given 2 units of blood and fluids wide open at the time. Dopamine was increased up to 20 mics. Only 2 IVs were available and the patient was given an intraosseous line. PICC line was attempted and we are unable to get that in at this time at the bedside. We'll try with radiology under fluoroscopy. We'll check a stat hemoglobin post 2 units of blood. Check renal panel, magnesium and check troponin. Repeat EKG. Dr. Rosenberg was consulted and recommends temporary pacemaker placement. We will plan for this when catheter lab is available. Continue on the ventilator for respiratory support. Continue external pacing as needed for now. Continue dopamine to keep heart rate at least in the 60s. Dopamine can be discontinued once pacemaker is in place. Protonix for GI protection Give Synthroid IV DC oral medications Plan for transfer to trauma service at the [facility] once patient is stabilized with temporary pacemaker. 11/30/2016-4:30 PM The patient underwent successful declined placement by fluoroscopy. She later underwent successful permanent pacemaker placement by Dr. Rosenberg. Chest x-ray post pacemaker did show a small left pneumothorax. I did relay these results to Dr. Peck. Heart rate is currently 69 and blood pressure systolic is ranging from 100-135. Urine output is good. Oxygen saturation is in the high 90s on 50% FiO2 with mechanical ventilation. Hemoglobin after 2 units of blood transfused this morning was 11.6. Repeat hemoglobin after pacemaker placement was 8.9. Now that pacemaker has been placed and she is cardiovascularly stable, will transfer to the [facility] to the trauma service. I did discuss the patient with Dr. PECK. Discussed plans for transfer with the patient's family and with Dr. Stack. Patient will need a repeat chest x-ray regarding small pneumothorax on the left seen post pacemaker placement. The patient was requiring dopamine prior to pacemaker placement for heart rate support, but this has been discontinued after pacemaker placement. The patient is currently sedated on the ventilator. Problems: (1) Abdominal hematoma Status: Acute Assessment & Plan: due to fall and eliquis. CT scan showed soft tissue swelling. No intra-abdominal injury. Hold eliquis this PM and tomorrow. Continue to monitor for signs of increased bleeding. Supportive care overnight. Percocet for pain. PT/OT eval and treat. question continued use of eliquis given patients multiple episodes of bleeding and falls. NS 100cc/hr overnight for gentle fluid hydration. (2) Fall Assessment & Plan: due to weakness. PT/OT eval and treat in the AM. (3) Weakness generalized Status: Acute Assessment & Plan: PT/OT eval and treat. Social work consult in AM to help with possible transition to SNF. (4) Dementia Status: Chronic (5) Hypothyroidism Status: Chronic (6) GERD (gastroesophageal reflux disease) Status: Chronic (7) History of cardiac arrhythmia Status: Resolved Code Status Full Code Home Meds Discontinued Reported Medications Ibuprofen (Motrin Ib) 200 Mg Tablet, 400 MG PO Q4H Y for PAIN 11/28/16 Lisinopril (Lisinopril) 2.5 Mg Tablet, 2.5 MG PO DAILY 11/27/16 Fludrocortisone Acetate (Fludrocortisone Acetate) 0.1 Mg Tablet, 0.1 MG PO DAILY , TAB 11/27/16 Cephalexin (Keflex) 250 Mg Capsule, 250 MG PO HS 11/27/16 Carvedilol (Carvedilol) 3.125 Mg Tablet, 1 TAB PO BIDWM 11/27/16 Amiodarone HCl (Amiodarone HCl) 200 Mg Tablet, 200 MG PO DAILY, TAB 11/27/16 Apixaban (Eliquis) 5 Mg Tablet, 5 MG PO BID 11/25/16 Bacillus Coagulans/Inulin (Probiotic Formula Capsule) 1 Each Capsule, 1 CAP PO DAILY 11/15/16 Calcium Carbonate/Vitamin D3 (Calcium 500+D Tablet Chew) 1 Each Tab.chew, 2 TAB PO CHEW DAILY 11/15/16 Cholecalciferol (Vitamin D3) (Vitamin D-400) 400 Unit Tablet, 400 UNIT PO DAILY 11/15/16 Ferrous Sulfate (Slow Fe) 142 Mg Tablet.er, 142 MG PO DAILY 11/15/16 Lorazepam (Lorazepam) 0.5 Mg Tablet, 0.5 MG PO HS Y for ANXIETY 11/15/16 Melatonin (Melatonin) 5 Mg Tablet, 5 MG PO HS Y for INSOMNIA 11/15/16 Meloxicam (Meloxicam) 7.5 Mg Tablet, 7.5 MG PO BID 11/15/16 Nitroglycerin (Nitroglycerin) 0.4 Mg Tab.subl, 0.4 MG PO Q5MIN Y for CHEST PAIN 11/15/16 Ondansetron (Zofran Odt) 4 Mg Tab.rapdis, 4 MG SL QID Y for NAUSEA 11/15/16 Oxycodone HCl/Acetaminophen (Percocet 7.5-325 mg Tablet) 7.5-325 Tablet, 1 TAB PO QID Y for PAIN 11/15/16 Promethazine HCl (Promethazine HCl) 25 Mg Tablet, 25 MG PO Q6H Y for NAUSEA 11/15/16 Acetaminophen (Acetaminophen) 500 Mg Tablet, 1000 MG PO Q8H Y for PAIN 11/15/16 Divalproex Sodium (Divalproex Sodium) 125 Mg Tablet.dr, 125 MG PO BID 05/11/16 Venlafaxine HCl (Venlafaxine HCl) 75 Mg Tablet, 112.5 MG PO BID 05/11/16 Memantine HCl (Namenda Xr) 28 Mg Cap.spr.24, 28 MG PO DAILY 05/11/16 Levothyroxine Sodium (Levothyroxine Sodium) 112 Mcg Tablet, 112 MCG PO ACB 05/11/16 Donepezil HCl (Aricept) 10 Mg Tablet, 10 MG PO HS 04/04/16 Cyclobenzaprine HCl (Cyclobenzaprine HCl) 5 Mg Tablet, 5 MG PO BID Y for PAIN 04/04/16 Primidone (Primidone) 50 Mg Tablet, 50 MG PO TID 08/01/15 Gabapentin (Gabapentin) 600 Mg Tablet, 600 MG PO TID 08/01/15 Omeprazole (Prilosec) 20 Mg Capsule.dr, 20 MG PO DAILY 04/11/14 Face to Face Encounter I met with patient on the day of dismissal and discussed follow up appointments , medications, and safety plan. Discharge Disposition Transfer to [facility] in serious condition-she is cardiovascularly stable at this time Copies To 1: ELDA TRACEY MD Copies To 2: CONSTANTIN ROSENBERG MD, STEPHANIE L MD Nov 30, 2016 16:24
--- NOTE | 2016-11-30 17:15 | NUR ---
transferred to [facility] per EMS after report to SICU RN. SBPs in 160s, paced about 25%. Good urine outputs, family frequently updated regarding patient status.
[2016-11-30] MEDS ORDERED: DONEPEZIL 10 MG TABLET PO SCH (22:00)
[2016-12-01] MEDS ORDERED: LEVOTHYROXINE 100 MCG IV SCH (09:00)
== END 2016-11-30 17:15 | disposition short-term general hospital (02) | DRG 242 ==
LOC: ED 20:34 → EDHOLD 22:13 → MED 22:30 → CCU 11-30 02:25 → OBSVTOIN 11-30 16:17
PROVIDERS: ADMIT Internal Medicine; ATTEND Internal Medicine
PROC: 0JH606Z Insertion of Pacemaker, Dual Chamber into Chest Subcutaneous Tissue and Fascia, Open Approach (ICD-10-PCS; principal; 2016-11-30)
PROC: 02H63JZ Insertion of Pacemaker Lead into Right Atrium, Percutaneous Approach (ICD-10-PCS; 2016-11-30)
PROC: 02HK3JZ Insertion of Pacemaker Lead into Right Ventricle, Percutaneous Approach (ICD-10-PCS; 2016-11-30)
PROC: 5A12012 Performance of Cardiac Output, Single, Manual (ICD-10-PCS; 2016-11-30)
PROC: 30233N1 Transfusion of Nonautologous Red Blood Cells into Peripheral Vein, Percutaneous Approach (ICD-10-PCS; 2016-11-30)
PROC: 5A1935Z Respiratory Ventilation, Less than 24 Consecutive Hours (ICD-10-PCS; 2016-11-30)
PROC: 0BH17EZ Insertion of Endotracheal Airway into Trachea, Via Natural or Artificial Opening (ICD-10-PCS; 2016-11-30)
DX: I44.2 Atrioventricular block, complete (principal); I46.9 Cardiac arrest, cause unspecified; D62 Acute posthemorrhagic anemia; S36.92XA Contusion of unspecified intra-abdominal organ, initial encounter; R00.1 Bradycardia, unspecified; I48.0 Paroxysmal atrial fibrillation; I35.0 Nonrheumatic aortic (valve) stenosis; I25.10 Atherosclerotic heart disease of native coronary artery without angina pectoris; I10 Essential (primary) hypertension; E03.9 Hypothyroidism, unspecified; R51 Headache; E78.00 Pure hypercholesterolemia, unspecified; K21.9 Gastro-esophageal reflux disease without esophagitis; K59.00 Constipation, unspecified; F32.9 Major depressive disorder, single episode, unspecified; W18.39XA Other fall on same level, initial encounter; Y93.89 Activity, other specified; Y92.012 Bathroom of single-family (private) house as the place of occurrence of the external cause; Y99.8 Other external cause status
CPT/HCPCS: 36415; 36416; 36597; 36600; 80048; 80053; 80069; 81003; 82550; 82553; 82803; 83605; 83735; 84443; 84484; 85018; 85025; 85610; 85730; 86850; 86900; 86901; 86920; 86922; 93005; 94002; 94770; 96360; 96361; 99218

== ENCOUNTER → 2016-12-19 | Outpatient (CLI) | payer MEDICARE, OTHER ==
[~2016-12-19] MED LIST changes: +ACET-2321 PO; -ACET-62 PO; -AMIO200T2 PO; +AMIO200T7 PO; -APIX5TAB PO; -BACI1CAP4 PO; -CALC-850 PO CHEW; +CARV3.12 PO; -CARV3.123 PO; -CEPH-582 PO; -CHOL400T23 PO; -FERR142T14 PO; +FERR324T4 PO; +FERR325T21 PO; -GABA-305 PO; +GABA600T PO; +LEVO112T4 PO; -LEVO112T7 PO; -LISI2.5T2 PO; -LORA0.5T2 PO; +MAGN800O PO; -MELA5TAB14 PO; -MELO-273 PO; +MELO7.5T12 PO; +MULT-933 PO; -NITR0.4T39 PO; +OMEP20CA10 PO; -OMEP20CA4 PO; -ONDA4TAB7 SL; +OXYC-541 PO; -OXYC1TAB66 PO; +POLY17PO6 PO; +PRIM50TA23 PO; -PRIM50TA30 PO; -PROM25TA7 PO; +SACC250C3; +SENN8.6T94 PO; +VENL37.59 PO; -VENL75TA4 PO; -[UNRECOGNIZED DRUG - CODE] PO; -[UNRECOGNIZED DRUG - CODE] PO
--- NOTE | 2016-12-19 18:50 | ECHOF ---
DATE OF PROCEDURE December 19, 2016 This is a two-dimensional echo with spectral Doppler, color-flow and M-mode. It was obtained in a patient with atrial fibrillation. Left atrium is dilated. Left ventricular end-diastolic dimension is normal. Left ventricular wall thickness is increased. LV systolic function is normal with ejection fraction of 65%. Right atrium is normal. Right ventricle is normal. Aortic root dimension is normal. Mitral valve is morphologically normal with mild mitral regurgitation. Aortic valve shows fibrocalcific changes with restriction on opening motion. Transaortic velocities are increased with peak velocity of 2.9 m/sec with peak gradient of 33 and mean gradient of 21. Aortic valve area is calculated at 1.16 cm2. Mild aortic insufficiency is present. Tricuspid valve shows mild tricuspid regurgitation with normal estimated pulmonary artery systolic pressure of 27. Pulmonary valve shows mild pulmonary insufficiency. There is no pericardial effusion. IMPRESSION 1. Normal LV systolic function with ejection fraction of 65%. 2. Concentric left ventricular hypertrophy. 3. Left atrial dilation. 4. Moderate aortic stenosis with a valve area of 1.16 cm2 with mild aortic insufficiency. 5. Mild mitral regurgitation. 6. Mild tricuspid regurgitation with normal estimated pulmonary artery systolic pressure of 27. 7. Mild pulmonary insufficiency. MTDD
== END ==
LOC: IMA 14:15
PROVIDERS: ATTEND Internal Medicine Cardiovascular Disease
DX: I48.0 Paroxysmal atrial fibrillation (principal); I08.3 Combined rheumatic disorders of mitral, aortic and tricuspid valves
CPT/HCPCS: 93306

== ENCOUNTER 2017-05-06 11:35 | Observation (INO) ==
--- NOTE | 2017-05-06 13:54 | Emergency Department Report ---
General Adult HPI - General Chief complaint: Medical Emergency Stated complaint: poss fall, lethargic Time Seen by Provider: 05/06/17 11:48 Source: patient, family, EMS, old records reviewed Mode of arrival: EMS Limitations: altered mental status - History of Present Illness HPI narrative: This patient arrives via EMS after Home Health called them to come bring the patient in for evaluation. She has been here several times recently. She lives at home with her . He has advancing dementia and there have been some concerns about how well they are doing at home. Apparently she had some fall last night and the neighbors were called. They got her back in bed. Home Health came this morning and noted a skin tear on her hand that had been wrapped so tightly by the that her fingers were blue. The patient complains first of a headache and later that she hurts all over. 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 The daughter calls the ER and tells the nurses that the patient needs to be admitted because she is not safe at home and that they are trying to get her in to [facility]. EMS reports that there are lots of Meals on Wheels meals that have been delivered but never touched. They cannot tell if she has eaten anything recently. They think that she has been in bed for days. She was found this morning on the toilet with evidence that she had been sitting there for some time. The daughter says that the dad usually helps the mom get off the toilet but he is not doing well with all the stress of taking care of her right now. Patient says that she has not had a stool in 10 days. But that is the same thing she said when here in ER earlier this week and she was given enemas and did have a BM. Daughter reminds pt of this and she doesn't think we are right. Location: head Radiation: non-radiation Quality: aching (pt cannot rate pain) Consistency: constant Relieving factors: medication (takes Percocet QID for pain) Associated symptoms: confusion, weakness Treatments prior to arrival: none - Related Data Home Medications Medication Instructions Recorded Confirmed Amiodarone [Pacerone] 200 mg PO DAILY #0 tab 12/13/16 05/06/17 Carvedilol [Coreg] 3.125 mg PO BIDWM #0 tab 12/13/16 05/06/17 Ferrous Sulfate 324 mg PO WB #0 tab 12/13/16 05/06/17 Fludrocortisone [Florinef] 0.1 mg PO DAILY #0 tab 12/13/16 05/06/17 Gabapentin [Neurontin] 600 mg PO TID #0 tab 12/13/16 05/06/17 Levothyroxine Sodium [Synthroid] 112 mcg PO ACB #0 tab 12/13/16 05/06/17 Meloxicam [Mobic] 7.5 mg PO DAILY #0 12/13/16 05/06/17 Multivitamin [Multi-Day Vitamins] 1 tab PO BID #30 tab 12/13/16 05/06/17 Omeprazole 20 mg PO ACB #0 cap 12/13/16 05/06/17 Polyethylene Glycol 3350 [Miralax] 17 g PO DAILY #0 bottle 12/13/16 05/06/17 Primidone [Mysoline] 50 mg PO TID #0 tab 12/13/16 05/06/17 Saccharomyces Boulardii [Florastor] 250 mg PO PRN #0 12/13/16 05/06/17 Sennosides [Senokot] 8.6 mg PO DAILY #0 tab 12/13/16 05/06/17 Lisinopril [Prinivil] 5 mg PO DAILY 04/29/17 05/06/17 Venlafaxine [Effexor] 75 mg PO TID 04/29/17 05/06/17 CephALEXin [Keflex] 250 mg PO DAILY 05/06/17 05/06/17 Cholecalciferol (Vitamin D3) 4,000 unit PO DAILY 05/06/17 05/06/17 [Vitamin D3] Divalproex Sodium 125 mg PO BID 05/06/17 05/06/17 Donepezil [Aricept] 10 mg PO HS 05/06/17 05/06/17 Ibuprofen 200 mg PO Q4H PRN 05/06/17 05/06/17 Memantine [Namenda] 10 mg PO BID 05/06/17 05/06/17 Oxycodone/APAP 7.5/325 [Percocet 1 tab PO Q4H PRN 05/06/17 05/06/17 7.5/325] Turmeric Root Extract [Turmeric] 1,500 mg PO DAILY 05/06/17 05/06/17 Previous Rx's Medication Instructions Recorded Acetaminophen [Tylenol] 325 - 650 mg PO Q5H PRN tablet 05/09/17 Donepezil [Aricept] 10 mg PO HS tablet 05/09/17 Melatonin 3 mg PO HS PRN tablet 05/09/17 Allergies Allergy/AdvReac Type Severity Reaction Status Date / Time Penicillins Allergy Severe ANAPHYLACTIC-ENDED Verified 05/06/17 12:00 IN ICU FOR A DAY fluoxetine Allergy Unknown Verified 05/06/17 12:00 Iodinated Contrast- Oral and Allergy Unknown RASH,SOA Verified 05/06/17 12:00 IV Dye morphine Allergy Unknown Verified 05/06/17 12:00 nitrofurantoin Allergy Unknown Verified 05/06/17 12:00 Sulfa (Sulfonamide Allergy Unknown RASH,ITCHY Verified 05/06/17 12:00 Antibiotics) aspirin AdvReac Intermediate HIGH BP, Verified 05/06/17 12:00 SOA naproxen AdvReac Intermediate Shortness Verified 05/06/17 12:00 of Breath (Air) metoclopramide AdvReac Unknown Verified 05/06/17 12:00 Review of Systems Constitutional: Reports: weakness. Denies: fever, chills Eyes: Denies: eye pain ENT: Denies: ear pain, throat pain, congestion Cardiovascular: Denies: chest pain, palpitations Respiratory: Denies: cough, dyspnea Gastrointestinal: Denies: abdominal pain Genitourinary: Denies: urgency, dysuria Musculoskeletal: Denies: back pain Integumentary: Denies: rash Neurological: Reports: as per HPI, headache, weakness Psychiatric: Denies: anxiety Endocrine: Reports: fatigue Hematological/Lymphatic: Denies: easy bleeding Allergic/Immunologic: Denies: facial swelling PFSH Patient Stated Medical History Alzheimer's Disease Yes Dementia Yes Cataracts Yes Cardiac Arrhythmia Yes Hypertension Yes Gastroesophageal Reflux Yes Disease Hx Urinary Tract Infection Yes Other Musculoskeletal Yes: Arthritis Shingles Yes Post Menopausal Yes Clinic Medical History Headache (Chronic Medical) Hyperlipidemia (Chronic Medical) Mitral valve prolapse (Chronic Medical) Osteoporosis (Chronic Medical) Surgical History: 1. Cholecystectomy: December 2008. 2. Gastric bypass x 2. 3. Right TKR. 4. Kidney surgery Family History: Family History Son Bipolar 1 disorder Unknown , Suicide Bipolar 1 disorder Mother Coronary artery disease Osteoporosis Stroke Father Coronary artery disease Glaucoma Brother HTN (hypertension) Hyperlipidemia Sister Colon cancer - Social History Smoking status: Never smoker Substance use type: does not use Alcohol intake frequency: does not drink Current residence: Apartment/Private Home Physical Exam - Limitations Limitations: altered mental status - General General appearance: alert - Normal Exams: Head:: Normocephalic without trauma Eyes:: Pupils are PERRLA w/ EOMI, No scleral icterus, irritation, or foreign bodies noted ENMT:: No facial trauma, nasal exudates, pharyngeal erythema, or exudates are noted Neck:: Full range of motion, without adenopathy, JVD, bruits or thyromegaly Chest/Respirations:: Clear all santiago, with good airflow, and symmetry bilaterally Cardiovascular:: Regular rate and rhythm, Pulses 2+ all extremities Abdomen:: Bowel sounds positive, non-distended, no hepatosplenomegaly Lymphatic:: No lymphadenopathy, or lymphedema noted Musculoskeletal:: No tenderness, or deformity noted Integumentary:: No rashes - Head Head exam: atraumatic, normocephalic - Abdominal Exam Abdominal exam: Present: soft, tenderness, guarding, normal bowel sounds. Absent: distention, rebound, rigidity, trauma, incision, psoas sign, obturator sign, Shin's sign, ascites, mass, pulsatile mass Abdominal tenderness: Present: diffuse - Neurological Exam Neurological exam: Present: CN II-XII intact, reflexes normal, other (patient seems somewhat lethargic, but opens eyes to name and responds to questions. Early in visit she says she has a headache and hirts all over, later that she never has headaches and doesn't hurt when she has not been given analgesics, and has hx on chart of chronic headaches.). Absent: motor sensory deficit - Psychiatric Psychiatric exam: Present: flat affect. Absent: depressed, agitated, anxious, manic Course - Consultations Consultation #1: 14:30 -- Dr Contreras -- reviewed history and exam and labs -- she asks for additional CT. Consultation #2: 15:30 -- second CT back -- Dr Contreras accepts admission. Vital Signs Temperature 36.6 C 05/06/17 11:35 Pulse Rate 72 05/06/17 11:35 Respiratory Rate 18 05/06/17 11:35 Blood Pressure 146/79 H 05/06/17 11:35 Pulse Oximetry 99 05/06/17 11:35 Temperature 36.1 C 05/09/17 07:16 Pulse Rate 96 05/09/17 15:38 Respiratory Rate 18 05/09/17 15:38 Blood Pressure 133/74 05/09/17 15:38 Pulse Oximetry 96 05/09/17 15:38 Medical Decision Making - MDM Narrative Medical decision making narrative: Initial evaluation and labs done. At that time pt said she hurt all over, but leelee head ("whole head"). Labs compared with recent labs from earlier this week - - no acute change except for mild decrease in sodium from 135 to 131. No signs of UTI, no elevation of WBC to suggest infection. Later went in to talk with patient with daughter present. Pt seems more confused, changes history, cannot recall events that daughter reminds her of. But when she hears daughter talk to me about terminal manager care options starts yelling No, No, No and clearly seems to be following conversation more than she appears to. Has some abdominal pain that is most likely related to constipation. Care situation is not optimal at home. Daughter is convinced pt is not safe with repeated falls, and pt's with dementia is losing ability to care for her. Due to increasing confusion without obvious source and increased weakness, will admit for further evaluation and attempt to help daughter with placement options. - Differential Diagnosis sepsis, UTI, head/neck trauma, encephalopathy, weakness, debility - Lab Data Lab results reviewed: Yes: I reviewed the patient's lab results. Result diagrams: 05/06/17 11:58 05/07/17 04:54 Lab Results 05/06/17 05/06/17 05/06/17 Range/Units 11:58 11:58 13:57 WBC 4.6 D (4.5-11.0) T/MM3 RBC 3.81 L (4.00-5.20) M/MM3 Hgb 12.4 (12-16) GM/DL Hct 36.7 (36-46) % MCV 96.3 (80-100) UM3 MCH 32.5 (26-34) UUG MCHC 33.8 (31-37) GM/DL RDW Std Deviation 45.4 (36.9-50.2) FL Plt Count 201 (130-400) T/MM3 MPV 10.2 (9.4-12.4) UM3 Immature Gran % (Auto) 1.3 H (0.0-0.5) % Neut % (Auto) 49.4 (33-66) % Lymph % (Auto) 36.3 (23-45) % Louisa % (Auto) 11.7 H (0-9.0) % Eos % (Auto) 1.1 (0-4) % Baso % (Auto) 0.2 (0-2) % Neut # 2.3 (1.8-7.7) T/MM3 Lymph # 1.7 (1-4.8) T/MM3 Louisa # 0.5 (0-0.8) T/MM3 Eos # 0.1 (0-0.5) T/MM3 Baso # 0.0 (0-0.2) T/MM3 Abs Immat Gran (auto) 0.06 H (0.00-0.03) T/MM3 Turbidity < 20 (0-20) Sodium 131 L (134-144) MEQ/L Potassium 4.0 (3.6-5) MEQ/L Chloride 95 L (98-107) MEQ/L Carbon Dioxide 26 (22-30) MEQ/L Anion Gap 10 (5-15) MEQ/L BUN 12.0 (7-17) MG/DL Creatinine 0.6 L (0.7-1.2) MG/DL GFR Calculation 95 BUN/Creatinine Ratio 20 (6-26) RATIO Glucose 96 (65-110) MG/DL Calculated Osmolality 253 L (261-280) MOSM/KG Calcium 9.0 (8.4-10.2) MG/DL Icterus Index < 2 (0-7) TSH 10.20 H (0.47-4.68) MIU/L Specimen Hemolysis < 15 (0-25) Ur Collection Type Urine, clean catch Urine Color Yellow (YELLOW) Urine Clarity Clear Urine pH 5.5 (5.0-8.0) Ur Specific [place] <=1.005 L (1.015-1.025) Urine Protein Negative (NEGATIVE) Urine Glucose (UA) Negative (NEGATIVE) Urine Ketones Negative (NEGATIVE) Urine Occult Blood Negative (NEGATIVE) Urine Nitrate Negative (NEGATIVE) Urine Bilirubin Negative (NEGATIVE) Urine Urobilinogen 0.2 (NORMAL) EU/DL Ur Leukocyte Esterase Negative (NEGATIVE) Urinalysis Comment Microscopic not ind. - Radiology Data Radiology results reviewed: Yes: I reviewed the patient's radiology results. CT head and C-spine -- no acute trauma or other changes Critical Care Time Critical Care Time: No Disposition Clinical Impression: Encephalopathy acute, Generalized weakness Disposition: 02 To [facility] Condition: Improved - Seen By: physician
[2017-05-06 18:19] VITALS: BMI 31.8
[2017-05-06] MEDS ORDERED: IBUPROFEN 200 MG TABLET PO PRN (19:22)
[2017-05-06] MEDS ORDERED: CYCLOBENZAPRINE 5 MG TABLET PO PRN (19:22)
[2017-05-06] MEDS: POLYETHYL GLYCOL 3350 17gm PACKET PO SCH (20:40)
[2017-05-06] MEDS ORDERED: DONEPEZIL 10 MG TABLET PO SCH (21:00)
[2017-05-06] MEDS ORDERED: METOCLOPRAMIDE 10mg/2ml INJECTION IVP PRN (21:11)
[2017-05-06] MEDS: DIVALPROEX 125 MG TABLET PO SCH (21:18)
[2017-05-06] MEDS: CARVEDILOL 3.125 MG TABLET PO SCH (21:18)
[2017-05-06] MEDS: VENLAFAXINE 75 MG TABLET PO SCH (21:18)
[2017-05-06] MEDS: GABAPENTIN 600 MG TABLET PO SCH (21:19)
[2017-05-06] MEDS: MEMANTINE 10 MG TABLET PO SCH (21:19)
[2017-05-06] MEDS: PRIMIDONE 50 MG TABLET PO SCH (21:19)
--- NOTE | 2017-05-06 21:22 | History & Physical Report ---
History of Present Illness Date: 05/06/17 Chief complaint: worsening dementia, falls and gait instability HPI: Patient is a very pleasant 81-year-old female. History is obtained from the patient, her daughter Lela who his DPOA, and old records. The patient lives at home with her . The patient has progressive dementia and progressive gait instability. She has had multiple falls at home and her is getting too weak to be able to pick her up off the floor. He has been calling neighbors and occasionally EMS. Per Lela, he has been developing confusion himself. He is occasionally forgetting to give Diana her medications. Diana currently has home health and AIDS that come out to her house to help with bathing and medications. Her daughter Lela also has video cameras in the house to monitor her parents. She has seen a continued decline in their living situation and she had an appointment scheduled this coming week to talk about putting Diana in [facility]. Unfortunately, this weekend or breath continued to have increasing difficulties at home. She was in the emergency room twice on April 29 first with headache and body aches and then came back with severe constipation requiring enemas. She was then in the emergency room on the again with headaches. She fell out of bed yesterday and the neighbors were called and helped her back into bed. At some point, when she fell she scraped her arm. Today the home health nurse found her on the toilet where it appeared she had been sitting for a long time and had rendon on her legs. The home health aide called EMS. When EMS came to the house they found a lot of meals from [employer] all over the house that had not been eaten. The patient was brought to the emergency room and lab work was essentially normal other than sodium of 131 and TSH elevated at 10.2. CBC was essentially normal. UA was negative. CT head CT C-spine showed no acute fractures. The patient's family stated they could no longer care for her at home with her increasing weakness and dementia. Her is becoming too forgetful and weak to care for her either. Review of Systems Review of systems: The patient has had increasing weakness and occasionally her knees give out on her. She is not a candidate for knee replacement. She has frequent chronic headaches. She has frequent constipation and develops impaction at times. She has frequent abdominal pain. Otherwise, comprehensive review of systems is negative other than the above in history of present illness [facility] Patient Stated Medical History Alzheimer's Disease Yes Dementia Yes Cataracts Yes Other HEENT Yes: Fractured right side of face Cardiac Arrhythmia Yes Hypertension Yes Valvular Heart Disease Yes Asthma Yes Bronchitis Yes Chronic Obstructive Pulmonary Yes: previously diagnosed, daughter reports it Disease (COPD) is gone now Pneumonia Yes Gastroesophageal Reflux Yes Disease Other GI Yes: Chronic Constipation and previous laxative abuse Hx Urinary Tract Infection Yes Other Yes: Kidney repair Anemia Yes Clotting Problems Yes Other Musculoskeletal Yes: Degenerative Arthritis Cellulitis Yes Shingles Yes Depression Yes Post Menopausal Yes Clinic Medical History Headache (Chronic Medical) Hyperlipidemia (Chronic Medical) Mitral valve prolapse (Chronic Medical) Osteoporosis (Chronic Medical) Aortic stenosis Coronary artery disease Echocardiogram on 12/19/2016 showing ejection fraction of 65%, left ventricular hypertrophy, moderate aortic stenosis, mild aortic insufficiency, mild mitral regurg, mild tricuspid regurg hyperlipidemia Hypothyroidism GERD severe constipation history of kidney stones hypertension depression chronic headaches Hospitalization in November 2017 with acute blood loss anemia from a left flank subcutaneous hematoma while the patient was on a blood thinner and had a fall. 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 She had a CODE BLUE event and was intubated. She was transferred to [facility] as a trauma. She did well there and was transferred to nursing home for a month and then discharge to home. History of atrial fibrillation dementia Surgical History: 1. Cholecystectomy: December 2008. 2. Gastric bypass x 2. 3. Right TKR. 4. Kidney surgery. 5. Pacemaker placement Family History: Family History Son Bipolar 1 disorder Unknown , Suicide Bipolar 1 disorder Mother Coronary artery disease Osteoporosis Stroke Father Coronary artery disease Glaucoma Brother HTN (hypertension) Hyperlipidemia Sister Colon cancer - Social History Smoking status: Never smoker Current residence: Apartment/Private Home Social history: Daughter Lela is DPOA. Patient still wants to be a full code. Medications Home Medications Medication Instructions Recorded Confirmed Type Amiodarone [Pacerone] 200 mg PO DAILY #0 tab 12/13/16 05/06/17 History Carvedilol [Coreg] 3.125 mg PO BIDWM #0 tab 12/13/16 05/06/17 History Cyclobenzaprine HCl 1 tab PO BID PRN #0 tab 12/13/16 05/06/17 History Ferrous Sulfate 324 mg PO WB #0 tab 12/13/16 05/06/17 History Fludrocortisone [Florinef] 0.1 mg PO DAILY #0 tab 12/13/16 05/06/17 History Gabapentin [Neurontin] 600 mg PO TID #0 tab 12/13/16 05/06/17 History Levothyroxine Sodium [Synthroid] 112 mcg PO ACB #0 tab 12/13/16 05/06/17 History Meloxicam [Mobic] 7.5 mg PO DAILY #0 12/13/16 05/06/17 History Multivitamin [Multi-Day Vitamins] 1 tab PO BID #30 tab 12/13/16 05/06/17 History Omeprazole 20 mg PO ACB #0 cap 12/13/16 05/06/17 History Polyethylene Glycol 3350 [Miralax] 17 g PO DAILY #0 bottle 12/13/16 05/06/17 History Primidone [Mysoline] 50 mg PO TID #0 tab 12/13/16 05/06/17 History Saccharomyces Boulardii [Florastor] 250 mg PO PRN #0 12/13/16 05/06/17 History Sennosides [Senokot] 8.6 mg PO DAILY #0 tab 12/13/16 05/06/17 History Lisinopril [Prinivil] 5 mg PO DAILY 04/29/17 05/06/17 History Venlafaxine [Effexor] 75 mg PO TID 04/29/17 05/06/17 History CephALEXin [Keflex] 250 mg PO DAILY 05/06/17 05/06/17 History Cholecalciferol (Vitamin D3) 4,000 unit PO DAILY 05/06/17 05/06/17 History [Vitamin D3] Cyclobenzaprine [Flexeril] 5 mg PO DAILY 05/06/17 05/06/17 History Divalproex Sodium 125 mg PO BID 05/06/17 05/06/17 History Donepezil [Aricept] 10 mg PO HS 05/06/17 05/06/17 History Ibuprofen 200 mg PO Q4H PRN 05/06/17 05/06/17 History Memantine [Namenda] 10 mg PO BID 05/06/17 05/06/17 History Oxycodone/APAP 7.5/325 [Percocet 1 tab PO Q4H PRN 05/06/17 05/06/17 History 7.5/325] Turmeric Root Extract [Turmeric] 1,500 mg PO DAILY 05/06/17 05/06/17 History Allergies Allergy/AdvReac Type Severity Reaction Status Date / Time Penicillins Allergy Severe ANAPHYLACTIC-ENDED Verified 05/06/17 12:00 IN ICU FOR A DAY fluoxetine Allergy Unknown Verified 05/06/17 12:00 Iodinated Contrast- Oral and Allergy Unknown RASH,SOA Verified 05/06/17 12:00 IV Dye morphine Allergy Unknown Verified 05/06/17 12:00 nitrofurantoin Allergy Unknown Verified 05/06/17 12:00 Sulfa (Sulfonamide Allergy Unknown RASH,ITCHY Verified 05/06/17 12:00 Antibiotics) aspirin AdvReac Intermediate HIGH BP, Verified 05/06/17 12:00 SOA naproxen AdvReac Intermediate Shortness Verified 05/06/17 12:00 of Breath (Air) metoclopramide AdvReac Unknown Verified 05/06/17 12:00 Exam Vital Signs: Temperature 97.7 F 05/06/17 17:46 Pulse Rate 67 05/06/17 17:46 Respiratory Rate 16 05/06/17 17:46 Blood Pressure 152/99 H 05/06/17 17:46 Pulse Oximetry 98 05/06/17 17:46 Height/Weight/BMI: Height 1.65 m Weight 86.7 kg Body Mass Index 31.8 Comments: GEN-alert, moderately confused, no acute distress HEENT-sclera anicteric, pupils are equal, oropharynx is moist NECK-supple CV-regular rate and rhythm CHEST-clear to auscultation bilaterally ABD-soft, nontender with positive bowel sounds. Left lateral side reveals a hematoma which is getting smaller per patient's daughter -no Myrick EXT-no edema NEURO-significant for confusion, no focal deficits SKIN-warm and dry. Results - Labs CBC & Chem 7: 05/06/17 11:58 05/06/17 11:58 Assessment and Plan Resuscitation Status: Full Code Assessment and Plan: Impression Worsening dementia Gait instability with frequent falls Hypernatremia Chronic headaches Elevated TSH-she is on Synthroid but has been forgetting to take her medications at times Severe constipation Moderate aortic stenosis Coronary artery disease Skin tear on arm History of borderline low B 12 which could be contributing to memory decline Paroxysmal A. fib-off of anticoagulation because of fall risk Plan Resume patient's home medication Provide a safe environment Recheck basic metabolic profile in the morning Consult case management for help with alf placement Up with assist only Sepsis Assessment - Evaluation Sepsis screening result: No Definite Risk Hospital Course Summary Disclaimer: The visit summary below is not to be considered part of the above Progress Note.
[2017-05-06] MEDS: MELATONIN 1 MG TABLET PO PRN (23:55)
[2017-05-07] MEDS: LEVOTHYROXINE 112 MCG TABLET PO SCH (06:44)
[2017-05-07] MEDS: OMEPRAZOLE 20 MG CAPSULE PO SCH (06:44)
[2017-05-07] MEDS: MEMANTINE 10 MG TABLET PO SCH ×2 (09:03→20:52)
[2017-05-07] MEDS: GABAPENTIN 600 MG TABLET PO SCH ×3 (09:03→20:52)
[2017-05-07] MEDS: FLUDROCORTISONE 0.1 MG TABLET PO SCH (09:03)
[2017-05-07] MEDS: SENNOSIDES 8.6 MG TABLET PO SCH (09:04)
[2017-05-07] MEDS: LISINOPRIL 5 MG TABLET PO SCH (09:04)
[2017-05-07] MEDS: PRIMIDONE 50 MG TABLET PO SCH ×3 (09:04→20:52)
[2017-05-07] MEDS: VENLAFAXINE 75 MG TABLET PO SCH ×3 (09:04→17:48)
[2017-05-07] MEDS: DIVALPROEX 125 MG TABLET PO SCH ×2 (09:04→20:52)
[2017-05-07] MEDS: FERROUS SULFATE 324 MG TABLET PO SCH (09:04)
[2017-05-07] MEDS: AMIODARONE 200 MG TABLET PO SCH (09:04)
[2017-05-07] MEDS: CARVEDILOL 3.125 MG TABLET PO SCH ×2 (09:05→17:48)
[2017-05-07] MEDS: POLYETHYL GLYCOL 3350 17gm PACKET PO SCH (09:05)
--- NOTE | 2017-05-07 09:10 | CT Scan Report ---
Indication: fall, confusion, headache PROCEDURE: CT cervical spine wo con: Encounter: Initial Comparison: None Technique: Axial CT images through the cervical spine were performed without contrast. Coronal and sagittal reformatted images were also obtained. Automated Exposure Control and Iterative Reconstruction dose reducing techniques were utilized. FINDINGS: The alignment of the cervical spine is straightened. Multilevel degenerative changes are present. There is no evidence of acute fracture or subluxation of the cervical spine. The atlantoaxial articulation, dens, and upper cervical spine demonstrate no subluxation. The paraspinal soft tissues and spinal canal appear unremarkable. IMPRESSION: No acute traumatic abnormality of the cervical spine. There is a preliminary report by [facility]. .
[2017-05-07] MEDS ORDERED: METOCLOPRAMIDE 5mg TABLET PO PRN (09:28)
--- NOTE | 2017-05-07 10:03 | CT Scan Report ---
Indication: fall, head pain PROCEDURE: CT head/brain wo con: Encounter: Initial Comparison: April 29, 2017 Technique: Axial CT images through the head were performed without contrast. Iterative Reconstruction dose reducing technique was utilized. FINDINGS: Mild generalized atrophy. The ventricles are of normal size, shape, and configuration for the patient's age. There is no evidence of acute intracranial hemorrhage, midline displacement, or mass effect. There are extensive areas of low attenuation in the white matter which most likely represent changes of chronic microvascular ischemia. The CT attenuation of the brain parenchyma is otherwise normal within the cerebellum, brain stem, and cerebral hemispheres. The tympanic cavities and mastoid air cells are free of appreciable disease. There are no definite fractures of the skull base, calvarium, or visualized portion of the midface. IMPRESSION: No CT evidence of acute traumatic intracranial injury. There is a preliminary report by [facility]. .
--- NOTE | 2017-05-07 14:12 | Progress Note ---
Subjective: The patient was seen in her room accompanied by her . She has significant dementia. She states she feels fine and has no pain and no shortness of breath. She states she is eating well. She does not remember that she has required a walker for ambulation at home. She does not remember her frequent falls at home. She did not remember that her was taking care of her and in fact, she thought she was taking care of him. Objective Vital signs: Temperature 98.7 F 05/07/17 07:35 Pulse Rate 74 05/07/17 07:35 Respiratory Rate 18 05/07/17 07:35 Blood Pressure 147/84 H 05/07/17 07:35 Pulse Oximetry 93 05/07/17 07:35 Height/Weight/BMI: Height 1.65 m Weight 95.8 kg Body Mass Index 31.8 Comments: GEN-alert, pleasant, no acute distress. Very confused HEENT-sclera anicteric, oropharynx is moist NECK-supple CV-regular rate and rhythm with a 3/6 systolic murmur CHEST-clear to auscultation bilaterally ABD-soft, obese, nontender and nondistended. She does have a resolving hematoma on the lateral left side of her abdomen/side -no Myrick EXT-no edema NEURO-very confused. No focal deficits. Caustics Loader strength is symmetric. Strength in the legs is symmetric SKIN-warm and dry and without rashes. Both forearms have bandages from skin tears. Buttocks and thighs show no signs of irritation or skin breakdown from her prolonged time on the toilet reported yesterday Results - Labs CBC & Chem 7: 05/06/17 11:58 05/07/17 04:54 Labs: B 12 is pending Assessment and Plan Assessment and Plan: 05/07/2017 Impression Worsening dementia Gait instability with frequent falls Hyponatremia-resolved Chronic headaches-none today Elevated TSH-she is on Synthroid but has been forgetting to take her medications at times Severe constipation-she had 1 large soft brown stool recorded today Moderate aortic stenosis Coronary artery disease Skin tear on arms History of borderline low B 12 which could be contributing to memory decline Paroxysmal A. fib-off of anticoagulation because of fall risk Plan Continue patient's home medication Provide a safe environment Up with assist only PT OT eval and treat Await B-12 level Discussed today on the phone with case management and the patient's daughter Lela. They're working on plans for discharge. I do not think the patient's is able to care for his at home. He appears fatigued and stated himself that he can no longer care for her by himself. Sepsis Assessment - Evaluation Sepsis screening result: No Definite Risk Hospital Course Summary Disclaimer: The visit summary below is not to be considered part of the above Progress Note. Hospital Course: 05/06/2017 Impression Worsening dementia Gait instability with frequent falls Hypernatremia Chronic headaches Elevated TSH-she is on Synthroid but has been forgetting to take her medications at times Severe constipation Moderate aortic stenosis Coronary artery disease Skin tear on arm History of borderline low B 12 which could be contributing to memory decline Paroxysmal A. fib-off of anticoagulation because of fall risk Plan Resume patient's home medication Provide a safe environment Recheck basic metabolic profile in the morning Consult case management for help with long term placement Up with assist only
[2017-05-07] MEDS: DONEPEZIL 10 MG TABLET PO SCH (20:53)
[2017-05-07] MEDS: MELATONIN 1 MG TABLET PO PRN (23:34)
[2017-05-08] MEDS: OMEPRAZOLE 20 MG CAPSULE PO SCH (06:11)
[2017-05-08] MEDS: LEVOTHYROXINE 112 MCG TABLET PO SCH (06:11)
[2017-05-08] MEDS: VENLAFAXINE 75 MG TABLET PO SCH ×3 (08:24→17:07)
[2017-05-08] MEDS: CARVEDILOL 3.125 MG TABLET PO SCH ×2 (08:24→17:07)
[2017-05-08] MEDS: FERROUS SULFATE 324 MG TABLET PO SCH (08:25)
[2017-05-08] MEDS: DIVALPROEX 125 MG TABLET PO SCH ×2 (08:25→20:26)
[2017-05-08] MEDS: FLUDROCORTISONE 0.1 MG TABLET PO SCH (08:26)
[2017-05-08] MEDS: PRIMIDONE 50 MG TABLET PO SCH ×3 (08:26→20:26)
[2017-05-08] MEDS: GABAPENTIN 600 MG TABLET PO SCH ×3 (08:27→20:26)
[2017-05-08] MEDS: AMIODARONE 200 MG TABLET PO SCH (08:27)
[2017-05-08] MEDS: MEMANTINE 10 MG TABLET PO SCH ×2 (08:27→20:26)
[2017-05-08] MEDS: LISINOPRIL 5 MG TABLET PO SCH (08:27)
[2017-05-08] MEDS: SENNOSIDES 8.6 MG TABLET PO SCH (08:28)
[2017-05-08] MEDS ORDERED: ONDANSETRON 4 MG TABLET PO PRN (08:30)
[2017-05-08] MEDS: POLYETHYL GLYCOL 3350 17gm PACKET PO SCH (08:31)
[2017-05-08] MEDS: ACETAMINOPHEN 325 MG TABLET PO PRN ×2 (08:46→14:54)
--- NOTE | 2017-05-08 09:19 | Progress Note ---
<Elisabeth Chamorro V - Last Filed: 05/08/17 09:08> Subjective: Kalyani is seen today in follow up this morning. She is laying in bed with her teeth laying in the bed with her. She complains of having a generalized headache this morning as well as a "upset stomach". Denies having chest pain or shortness of breath. She does not have any neurological deficits. She was given pain pill and Zofran. Upon re-evaluation 30 minutes later Kalyani continues to have a headache and is surprised that she was given a pain pill. She asks how long ago she took the pill. She has tolerated eating breakfast without any vomiting. Objective Vital signs: Temperature 95.7 F L 05/08/17 07:00 Pulse Rate 72 05/08/17 07:00 Respiratory Rate 16 05/08/17 07:00 Blood Pressure 151/83 H 05/08/17 07:00 Pulse Oximetry 97 05/08/17 07:00 Height/Weight/BMI: Height 1.65 m Weight 88 kg Body Mass Index 31.8 - Constitutional Present: no acute distress, well nourished, well developed - Routine HEENT Exam Eye: Present: EOMI ENT: Present: mucous membranes moist - Routine Respiratory Exam Present: CTA bilaterally. Absent: wheezes - Routine Cardiovascular Exam Present: RRR, S1, S2. Absent: murmur - Routine Abdominal Exam Present: soft, normoactive bowel sounds, non distended. Absent: tenderness - Routine Extremities Exam Present: full ROM - Routine Back/Spine/Pelvis Exam Back/Spine: Present: full ROM - Routine Skin Exam Present: dry, warm - Routine Neurological Exam Present: alert, CN II-XII intact, moving all extremities, vision grossly intact , hearing grossly intact, normal speech. Absent: sensory deficit, motor deficit - Routine Lymphatic Exam Lymphatic: Absent: adenopathy - Routine Psychiatric Exam Comments: Confused Results - Labs CBC & Chem 7: 05/06/17 11:58 05/07/17 04:54 Assessment and Plan Assessment and Plan: 05/08/17 Impression Worsening dementia Gait instability with frequent falls Hyponatremia-resolved Chronic headaches-none today Elevated TSH-she is on Synthroid but has been forgetting to take her medications at times Severe constipation-she had 1 large soft brown stool recorded today Moderate aortic stenosis Coronary artery disease Skin tear on arms History of borderline low B 12 which could be contributing to memory decline Paroxysmal A. fib-off of anticoagulation because of fall risk Plan Given new onset headache this morning accompanied multiple recent falls will obtain Ct of the brain. Initially she had a CT on 05/06 that was negative for intracranial trauma. Given her significant dementia she is difficult to assess mental status BP mildly elevated 151/81. May be related to headache and pain. Will continue to monitor. Continue with PT and OT for safety recommends Discussed with CM regarding placement options. Concerned that can no longer care for her at home. Will discuss further with attending, Dr Contreras Sepsis Assessment - Evaluation Sepsis screening result: No Definite Risk Hospital Course Summary Disclaimer: The visit summary below is not to be considered part of the above Progress Note. Hospital Course: 05/06/2017 Impression Worsening dementia Gait instability with frequent falls Hypernatremia Chronic headaches Elevated TSH-she is on Synthroid but has been forgetting to take her medications at times Severe constipation Moderate aortic stenosis Coronary artery disease Skin tear on arm History of borderline low B 12 which could be contributing to memory decline Paroxysmal A. fib-off of anticoagulation because of fall risk Plan Resume patient's home medication Provide a safe environment Recheck basic metabolic profile in the morning Consult case management for help with detention placement Up with assist only 05/08/17 Plan Given new onset headache this morning accompanied multiple recent falls will obtain Ct of the brain. Initially she had a CT on 05/06 that was negative for intracranial trauma. Given her significant dementia she is difficult to assess mental status BP mildly elevated 151/81. May be related to headache and pain. Will continue to monitor. Continue with PT and OT for safety recommends Discussed with CM regarding placement options. Concerned that can no longer care for her at home. Will discuss further with attending, Dr Contreras <Julia Contreras - Last Filed: 05/08/17 11:35> Objective Vital signs: Temperature 95.7 F L 05/08/17 07:00 Pulse Rate 72 05/08/17 07:00 Respiratory Rate 16 05/08/17 07:00 Blood Pressure 151/83 H 05/08/17 07:00 Pulse Oximetry 97 05/08/17 07:00 Height/Weight/BMI: Height 1.65 m Weight 88 kg Body Mass Index 31.8 Results - Labs CBC & Chem 7: 05/06/17 11:58 05/07/17 04:54 Assessment and Plan Assessment and Plan: 05/08/2017-I reviewed this chart, the patient history, and the BANK ACCOUNTANT's/PA's documented findings as above. We discussed and formulated the assessment and plan as above with the additions below.-Dr. Contreras Patient is sitting up in a chair. She complains of having a headache. When asked if she is having pain anywhere else she kind of motions to her arms and then says she hurts everywhere. She denies any other specific complaints. She has significant dementia. She received Percocet 7.5 mg 1 tablet about an hour ago but does not remember that. She was also complaining of a headache when my nurse practitioner, Elisabeth saw her. CT head was ordered and showed no acute findings. On exam the patient is alert and confused. She is in no acute distress and is not agitated. HEENT reveals sclerae to be anicteric and pupils are equal. Neck is supple. Chest is clear to auscultation. Cardiovascular reveals a regular rate and rhythm with a 3/6 systolic murmur. Abdomen is soft, obese and nontender with positive bowel sounds. Extremities reveal no significant edema. B 12 level has come back and is normal at 554. Regarding headache, I did review her home meds and mobic but had not been continued. We'll restart mobic 7.5 mg once daily and will give a dose now. She does carry a history of chronic headaches. With her dementia, the stress of being in a new environment may be contributing some to her headaches. Await PT and OT eval. IRU screen has been ordered. Discussed with case management and we are working on discharge plans. Hospital Course Summary Disclaimer: The visit summary below is not to be considered part of the above Progress Note.
[2017-05-08] MEDS: OXYCODONE/APAP 7.5 MG/325 MG TABLET PO PRN ×2 (10:36→20:26)
[2017-05-08] MEDS: MELOXICAM 7.5 MG TABLET PO SCH (11:50)
[2017-05-08 16:35] VITALS: RESP 18
--- NOTE | 2017-05-08 16:45 | CT Scan Report ---
Indication: Multiple recent falls, Headache PROCEDURE: CT head/brain wo con: Encounter: Initial Comparison: May 06, 2017 Technique: Axial CT images through the head were performed without contrast. Iterative Reconstruction dose reducing technique was utilized. FINDINGS: Atrophy. Ventricles are stable. There are extensive areas of low attenuation in the white matter which most likely represent changes from chronic microvascular ischemia. Old lacunar infarcts in the basal ganglia. The brainstem, cerebellum, and cerebral hemispheres otherwise have a normal morphology and CT attenuation. There is no evidence of midline displacement. No hemorrhage, signs of acute territorial stroke, mass effect, mass lesions, or edema is evident. The visualized portions of the skull base, midface, and calvarium demonstrate no abnormality. The paranasal sinuses are well aerated and free of significant disease. The tympanic and mastoid cavities appear normal. IMPRESSION: No acute intracranial abnormality or hemorrhage. Stable head CT. There is a preliminary report by [employer]. .
[2017-05-08] MEDS: DONEPEZIL 10 MG TABLET PO SCH (20:26)
[2017-05-08] MEDS: MELATONIN 1 MG TABLET PO PRN (23:05)
[2017-05-09] MEDS: ACETAMINOPHEN 325 MG TABLET PO PRN ×2 (04:03→08:36)
[2017-05-09] MEDS: LEVOTHYROXINE 112 MCG TABLET PO SCH (06:00)
[2017-05-09] MEDS: OMEPRAZOLE 20 MG CAPSULE PO SCH (06:00)
[2017-05-09 07:17] VITALS: TEMP 96.9
[2017-05-09] MEDS: AMIODARONE 200 MG TABLET PO SCH (08:34)
[2017-05-09] MEDS: SENNOSIDES 8.6 MG TABLET PO SCH (08:34)
[2017-05-09] MEDS: VENLAFAXINE 75 MG TABLET PO SCH ×3 (08:34→20:20)
[2017-05-09] MEDS: CARVEDILOL 3.125 MG TABLET PO SCH ×2 (08:35→20:20)
[2017-05-09] MEDS: DIVALPROEX 125 MG TABLET PO SCH (08:35)
[2017-05-09] MEDS: GABAPENTIN 600 MG TABLET PO SCH ×2 (08:35→15:39)
[2017-05-09] MEDS: LISINOPRIL 5 MG TABLET PO SCH (08:35)
[2017-05-09] MEDS: FERROUS SULFATE 324 MG TABLET PO SCH (08:35)
[2017-05-09] MEDS: FLUDROCORTISONE 0.1 MG TABLET PO SCH (08:35)
[2017-05-09] MEDS: PRIMIDONE 50 MG TABLET PO SCH ×2 (08:36→15:39)
[2017-05-09] MEDS: MELOXICAM 7.5 MG TABLET PO SCH (08:37)
[2017-05-09] MEDS: POLYETHYL GLYCOL 3350 17gm PACKET PO SCH (08:37)
[2017-05-09] MEDS: MEMANTINE 10 MG TABLET PO SCH (08:42)
[2017-05-09] MEDS: OXYCODONE/APAP 7.5 MG/325 MG TABLET PO PRN (11:52)
--- NOTE | 2017-05-09 14:51 | Discharge Instructions ---
Discharge Plan - Med Rec/Dispo Referrals/Follow Up: Benjamín Hameed MD [Family Provider] - (Follow up with Dr Hameed in 1 week) Vince Instructions: Weakness (GEN), Encephalopathy (GEN) Prescriptions: New Melatonin 3 mg PO HS PRN tablet PRN Reason: Insomnia Acetaminophen [Tylenol] 325 - 650 mg PO Q5H PRN tablet PRN Reason: Discomfort Donepezil [Aricept] 10 mg PO HS tablet Continue Omeprazole 20 mg PO ACB #0 cap Saccharomyces Boulardii [Florastor] 250 mg PO PRN #0 Carvedilol [Coreg] 3.125 mg PO BIDWM #0 tab Ferrous Sulfate 324 mg PO WB #0 tab Primidone [Mysoline] 50 mg PO TID #0 tab Gabapentin [Neurontin] 600 mg PO TID #0 tab Venlafaxine [Effexor] 75 mg PO TID Lisinopril [Prinivil] 5 mg PO DAILY CephALEXin [Keflex] 250 mg PO DAILY Cholecalciferol (Vitamin D3) [Vitamin D3] 4,000 unit PO DAILY Donepezil [Aricept] 10 mg PO HS Divalproex Sodium 125 mg PO BID Oxycodone/APAP 7.5/325 [Percocet 7.5/325] 1 tab PO Q4H PRN PRN Reason: Pain Turmeric Root Extract [Turmeric] 1,500 mg PO DAILY Ibuprofen 200 mg PO Q4H PRN PRN Reason: Pain Fludrocortisone [Florinef] 0.1 mg PO DAILY #0 tab Multivitamin [Multi-Day Vitamins] 1 tab PO BID #30 tab Sennosides [Senokot] 8.6 mg PO DAILY #0 tab Levothyroxine Sodium [Synthroid] 112 mcg PO ACB #0 tab Polyethylene Glycol 3350 [Miralax] 17 g PO DAILY #0 bottle Amiodarone [Pacerone] 200 mg PO DAILY #0 tab Memantine [Namenda] 10 mg PO BID Discontinued Cyclobenzaprine HCl 1 tab PO BID PRN #0 tab PRN Reason: Prn Orders Cyclobenzaprine [Flexeril] 5 mg PO DAILY No Action Meloxicam [Mobic] 7.5 mg PO DAILY #0 Discharge Instructions/Outpatient Orders: Final Provider Discharge Instructions Location: Determined By Patient - Disposition 01 Discharged Home, Self-Care
--- NOTE | 2017-05-09 15:02 | Discharge Summary ---
<Elisabeth Chamorro V - Last Filed: 05/09/17 14:58> Discharge Information Date of admission: 05/06/17 17:18 Anticipated date of discharge: 05/09/17 Attending Physician: Abeba Harrington MD Primary care physician: Benjamín Hameed MD Consults: - Procedures Procedures: None - Laboratory Labs: 05/07/17 04:54 - Microbiology None - Radiology Radiology: 05/06/17- Ct Head- intracranial abnormality or hemorrhage 05/06/17-CT cervical spine without evidence of acute trauma or injury. 05/08/17- Repeat Ct Head- No intracranial abnormality - Pathology None History of Present Illness HPI: Patient is a very pleasant 81-year-old female. History is obtained from the patient, her daughter Lela who his DPOA, and old records. The patient lives at home with her . The patient has progressive dementia and progressive gait instability. She has had multiple falls at home and her is getting too weak to be able to pick her up off the floor. He has been calling neighbors and occasionally EMS. Per Lela, he has been developing confusion himself. He is occasionally forgetting to give Diaan her medications. Diana currently has home health and AIDS that come out to her house to help with bathing and medications. Her daughter Lela also has video cameras in the house to monitor her parents. She has seen a continued decline in their living situation and she had an appointment scheduled this coming week to talk about putting Diana in [facility]. Unfortunately, this weekend or breath continued to have increasing difficulties at home. She was in the emergency room twice on April 29 first with headache and body aches and then came back with severe constipation requiring enemas. She was then in the emergency room on the again with headaches. She fell out of bed yesterday and the neighbors were called and helped her back into bed. At some point, when she fell she scraped her arm. Today the home health nurse found her on the toilet where it appeared she had been sitting for a long time and had rendon on her legs. The home health aide called EMS. When EMS came to the house they found a lot of meals from [employer] all over the house that had not been eaten. The patient was brought to the emergency room and lab work was essentially normal other than sodium of 131 and TSH elevated at 10.2. CBC was essentially normal. UA was negative. CT head CT C-spine showed no acute fractures. The patient's family stated they could no longer care for her at home with her increasing weakness and dementia. Her is becoming too forgetful and weak to care for her either. Objective Vital signs: Temperature 96.9 F 05/09/17 07:16 Pulse Rate 126 H 05/09/17 07:16 Respiratory Rate 18 05/09/17 07:16 Blood Pressure 114/82 05/09/17 07:16 Pulse Oximetry 97 05/09/17 07:16 Height/Weight/BMI: Height 1.65 m Weight 88.1 kg Body Mass Index 31.8 - Constitutional Present: no acute distress, well nourished, well developed - Routine HEENT Exam Eye: Present: EOMI ENT: Present: mucous membranes moist, dentition normal - Routine Respiratory Exam Present: CTA bilaterally. Absent: wheezes - Routine Cardiovascular Exam Present: RRR, S1, S2. Absent: murmur - Routine Abdominal Exam Present: soft, normoactive bowel sounds, non distended. Absent: tenderness - Routine Extremities Exam Present: normal capillary refill - Routine Skin Exam Present: intact, dry, warm - Routine Neurological Exam Present: alert, CN II-XII intact, moving all extremities Pleasantly confused - Routine Lymphatic Exam Lymphatic: Absent: adenopathy - Routine Psychiatric Exam Present: cooperative Comments: Confused Hospital Course This is a general summary of the patient's hospital course. For more details refer to the complete medical record. Hospital course: 05/06/2017 Impression Worsening dementia Gait instability with frequent falls Hypernatremia Chronic headaches Elevated TSH-she is on Synthroid but has been forgetting to take her medications at times Severe constipation Moderate aortic stenosis Coronary artery disease Skin tear on arm History of borderline low B 12 which could be contributing to memory decline Paroxysmal A. fib-off of anticoagulation because of fall risk Plan Resume patient's home medication Provide a safe environment Recheck basic metabolic profile in the morning Consult case management for help with [place] placement Up with assist only 05/08/17 Given new onset headache this morning accompanied multiple recent falls will obtain Ct of the brain. Initially she had a CT on 05/06 that was negative for intracranial trauma. Given her significant dementia she is difficult to assess mental status BP mildly elevated 151/81. May be related to headache and pain. Will continue to monitor. Continue with PT and OT for safety recommends Discussed with CM regarding placement options. Concerned that can no longer care for her at home. Will discuss further with attending, Dr Contreras 05/09/17- Discharge Multiple discussions with family and CM regarding discharge plans. Daughter reports they have a safe discharge plan for priscila. Dottie will stay at home during the day. Family is also given patient and family. A cell phone with preprogrammed numbers for patient and spouse to call any time they need assistance. The ongoing plan will be to work on long-term placement at a [place] [facility] [place] facility. This meeting and care assessment is arranged with [facility]. Priscila is doing well overall and remains pleasantly confused. she will return on usual home medications. She has not received any muscle relaxer while in the hospital and will continue with this stopped as this may play a role in falls. Would recommend only using Oxycodone minimally for pain control as this also will cause increased confusion and risk for falls. Commended follow-up with primary care provider, Dr. Hameed in one week. Total discharge time greater than 35 minutes. Time spent with patient: discharge greater than 30 minutes Discharge Plan - Med Rec/Dispo Referrals/Follow Up: Benjamín Hameed MD [Family Provider] - (Follow up with Dr Hameed in 1 week) Vince Instructions: Weakness (GEN), Encephalopathy (GEN) Prescriptions: New Melatonin 3 mg PO HS PRN tablet PRN Reason: Insomnia Acetaminophen [Tylenol] 325 - 650 mg PO Q5H PRN tablet PRN Reason: Discomfort Donepezil [Aricept] 10 mg PO HS tablet Continue Omeprazole 20 mg PO ACB #0 cap Saccharomyces Boulardii [Florastor] 250 mg PO PRN #0 Carvedilol [Coreg] 3.125 mg PO BIDWM #0 tab Ferrous Sulfate 324 mg PO WB #0 tab Primidone [Mysoline] 50 mg PO TID #0 tab Gabapentin [Neurontin] 600 mg PO TID #0 tab Venlafaxine [Effexor] 75 mg PO TID Lisinopril [Prinivil] 5 mg PO DAILY CephALEXin [Keflex] 250 mg PO DAILY Cholecalciferol (Vitamin D3) [Vitamin D3] 4,000 unit PO DAILY Donepezil [Aricept] 10 mg PO HS Divalproex Sodium 125 mg PO BID Oxycodone/APAP 7.5/325 [Percocet 7.5/325] 1 tab PO Q4H PRN PRN Reason: Pain Turmeric Root Extract [Turmeric] 1,500 mg PO DAILY Ibuprofen 200 mg PO Q4H PRN PRN Reason: Pain Fludrocortisone [Florinef] 0.1 mg PO DAILY #0 tab Multivitamin [Multi-Day Vitamins] 1 tab PO BID #30 tab Sennosides [Senokot] 8.6 mg PO DAILY #0 tab Levothyroxine Sodium [Synthroid] 112 mcg PO ACB #0 tab Polyethylene Glycol 3350 [Miralax] 17 g PO DAILY #0 bottle Amiodarone [Pacerone] 200 mg PO DAILY #0 tab Memantine [Namenda] 10 mg PO BID Discontinued Cyclobenzaprine HCl 1 tab PO BID PRN #0 tab PRN Reason: Prn Orders Cyclobenzaprine [Flexeril] 5 mg PO DAILY No Action Meloxicam [Mobic] 7.5 mg PO DAILY #0 Discharge Instructions/Outpatient Orders: Final Provider Discharge Instructions Location: Determined By Patient - Disposition 01 Discharged Home, Self-Care <Abeba Harrington - Last Filed: 05/09/17 16:33> Discharge Information Date of admission: 05/06/17 17:18 Attending Physician: Abeba Harrington MD Primary care physician: Benjamín Hameed MD Consults: 05/06/17 21:32 Case Management Consult [Case Management Consult] [CONS] Routine Reason For Exam: [place] placement. Please call Delia boyle [phone] 05/08/17 Inpatient Rehab Screening [CONS] Routine 05/09/17 13:19 Doctor [Physician Consult] [CONS] Routine Consulting Provider: Cece Mcdonald Reason For Exam: placement Ordering Provider has Notified Spray Blender: Yes 05/09/17 13:26 Doctor [Physician Consult] [CONS] Routine Consulting Provider: [facility] Reason For Exam: placement Ordering Provider has Notified Spray Blender: Yes - Laboratory Labs: 05/07/17 04:54 Objective Vital signs: Temperature 96.9 F 05/09/17 07:16 Pulse Rate 96 05/09/17 15:38 Respiratory Rate 18 05/09/17 15:38 Blood Pressure 133/74 05/09/17 15:38 Pulse Oximetry 96 05/09/17 15:38 Height/Weight/BMI: Height 5 ft 5 in Weight 194 lb 3.636 oz Body Mass Index 31.8 Hospital Course This is a general summary of the patient's hospital course. For more details refer to the complete medical record. Hospital course: I have independently evaluated and examined this patient. I reviewed the chart, the patient's history, and the CIDER MAKER/PA's documented findings as above. We discussed and formulated the assessment and plan as above with additions as below. The pt was seen by me at 1420. She remains pleasantly confused. She has no complaints. She is sitting up in chair drinking coffee. Review of systems as above. In general, the patient is alert and oriented 3, cooperative with exam, and in no respiratory distress. HEENT: Head is atraumatic, normocephalic, no conjunctival petechiae, no oral thrush, mucous membranes are moist and pink. Lungs: Clear to auscultation without wheezes, crackles or rhonchi CV: Regular rate and rhythm without murmur Abdomen: Soft, nontender, bowel sounds are present, there is no guarding no rebound. Extremities: No clubbing, no cyanosis, no edema. Skin: Warm and dry no sign of rash Neuro: Patient is pleasantly confused but cooperative The patient will be stopped discharge back to home. The granddaughter will be staying at home during the day. Unfortunately despite case management's earnest attempts, there were no opportunities for long-term placement in a [place] facility at this time.
[2017-05-09 15:38] VITALS: BP 133/74; PULSE 96; O2SAT 96
== END 2017-05-09 17:00 | disposition home health service (06) ==
LOC: MED 11:35 → ED 11:35 → MED 17:45
PROVIDERS: ADMIT Internal Medicine; ATTEND Internal Medicine Infectious Disease

== ENCOUNTER 2017-05-11 14:18 | Inpatient (IN) ==
--- NOTE | 2017-05-11 14:34 | Emergency Department Report ---
Medical Clearance HPI - General Chief complaint: Medical Clearance Stated complaint: evaluation Time Seen by Provider: 05/11/17 14:32 Home medications: Home Medications Medication Instructions Recorded Confirmed Amiodarone [Pacerone] 200 mg PO DAILY #0 tab 12/13/16 05/06/17 Carvedilol [Coreg] 3.125 mg PO BIDWM #0 tab 12/13/16 05/06/17 Ferrous Sulfate 324 mg PO WB #0 tab 12/13/16 05/06/17 Fludrocortisone [Florinef] 0.1 mg PO DAILY #0 tab 12/13/16 05/06/17 Gabapentin [Neurontin] 600 mg PO TID #0 tab 12/13/16 05/06/17 Levothyroxine Sodium [Synthroid] 112 mcg PO ACB #0 tab 12/13/16 05/06/17 Meloxicam [Mobic] 7.5 mg PO DAILY #0 12/13/16 05/06/17 Multivitamin [Multi-Day Vitamins] 1 tab PO BID #30 tab 12/13/16 05/06/17 Omeprazole 20 mg PO ACB #0 cap 12/13/16 05/06/17 Polyethylene Glycol 3350 [Miralax] 17 g PO DAILY #0 bottle 12/13/16 05/06/17 Primidone [Mysoline] 50 mg PO TID #0 tab 12/13/16 05/06/17 Saccharomyces Boulardii [Florastor] 250 mg PO PRN #0 12/13/16 05/06/17 Sennosides [Senokot] 8.6 mg PO DAILY #0 tab 12/13/16 05/06/17 Lisinopril [Prinivil] 5 mg PO DAILY 04/29/17 05/06/17 Venlafaxine [Effexor] 75 mg PO TID 04/29/17 05/06/17 CephALEXin [Keflex] 250 mg PO DAILY 05/06/17 05/06/17 Cholecalciferol (Vitamin D3) 4,000 unit PO DAILY 05/06/17 05/06/17 [Vitamin D3] Divalproex Sodium 125 mg PO BID 05/06/17 05/06/17 Donepezil [Aricept] 10 mg PO HS 05/06/17 05/06/17 Ibuprofen 200 mg PO Q4H PRN 05/06/17 05/06/17 Memantine [Namenda] 10 mg PO BID 05/06/17 05/06/17 Oxycodone/APAP 7.5/325 [Percocet 1 tab PO Q4H PRN 05/06/17 05/06/17 7.5/325] Turmeric Root Extract [Turmeric] 1,500 mg PO DAILY 05/06/17 05/06/17 Previous Rx's Medication Instructions Recorded Acetaminophen [Tylenol] 325 - 650 mg PO Q5H PRN tablet 05/09/17 Donepezil [Aricept] 10 mg PO HS tablet 05/09/17 Melatonin 3 mg PO HS PRN tablet 05/09/17 Allergies/Adverse reactions: Allergies Allergy/AdvReac Type Severity Reaction Status Date / Time Penicillins Allergy Severe ANAPHYLACTIC-ENDED Verified 05/06/17 12:00 IN ICU FOR A DAY fluoxetine Allergy Unknown Verified 05/06/17 12:00 Iodinated Contrast- Oral and Allergy Unknown RASH,SOA Verified 05/06/17 12:00 IV Dye morphine Allergy Unknown Verified 05/06/17 12:00 nitrofurantoin Allergy Unknown Verified 05/06/17 12:00 Sulfa (Sulfonamide Allergy Unknown RASH,ITCHY Verified 05/06/17 12:00 Antibiotics) aspirin AdvReac Intermediate HIGH BP, Verified 05/06/17 12:00 SOA naproxen AdvReac Intermediate Shortness Verified 05/06/17 12:00 of Breath (Air) metoclopramide AdvReac Unknown Verified 05/06/17 12:00 [facility] Patient Stated Medical History Alzheimer's Disease Yes Dementia Yes Cataracts Yes Other HEENT Yes: Fractured right side of face Cardiac Arrhythmia Yes Hypertension Yes Valvular Heart Disease Yes Asthma Yes Bronchitis Yes Chronic Obstructive Pulmonary Yes: previously diagnosed, daughter reports it Disease (COPD) is gone now Pneumonia Yes Gastroesophageal Reflux Yes Disease Other GI Yes: Chronic Constipation and previous laxative abuse Hx Urinary Tract Infection Yes Other Yes: Kidney repair Anemia Yes Clotting Problems Yes Other Musculoskeletal Yes: Degenerative Arthritis Cellulitis Yes Shingles Yes Depression Yes Post Menopausal Yes Clinic Medical History Headache (Chronic Medical) Hyperlipidemia (Chronic Medical) Mitral valve prolapse (Chronic Medical) Osteoporosis (Chronic Medical) Surgical History: 1. Cholecystectomy: December 2008. 2. Gastric bypass x 2. 3. Right TKR. 4. Kidney surgery Family History: Family History Son Bipolar 1 disorder Unknown , Suicide Bipolar 1 disorder Mother Coronary artery disease Osteoporosis Stroke Father Coronary artery disease Glaucoma Brother HTN (hypertension) Hyperlipidemia Sister Colon cancer - Social History Smoking status: Never smoker Disposition Prescriptions: No Action Omeprazole 20 mg PO ACB #0 cap Saccharomyces Boulardii [Florastor] 250 mg PO PRN #0 Carvedilol [Coreg] 3.125 mg PO BIDWM #0 tab Ferrous Sulfate 324 mg PO WB #0 tab Primidone [Mysoline] 50 mg PO TID #0 tab Gabapentin [Neurontin] 600 mg PO TID #0 tab Venlafaxine [Effexor] 75 mg PO TID Lisinopril [Prinivil] 5 mg PO DAILY CephALEXin [Keflex] 250 mg PO DAILY Cholecalciferol (Vitamin D3) [Vitamin D3] 4,000 unit PO DAILY Donepezil [Aricept] 10 mg PO HS Divalproex Sodium 125 mg PO BID Oxycodone/APAP 7.5/325 [Percocet 7.5/325] 1 tab PO Q4H PRN PRN Reason: Pain Turmeric Root Extract [Turmeric] 1,500 mg PO DAILY Ibuprofen 200 mg PO Q4H PRN PRN Reason: Pain Melatonin 3 mg PO HS PRN tablet PRN Reason: Insomnia Fludrocortisone [Florinef] 0.1 mg PO DAILY #0 tab Multivitamin [Multi-Day Vitamins] 1 tab PO BID #30 tab Sennosides [Senokot] 8.6 mg PO DAILY #0 tab Levothyroxine Sodium [Synthroid] 112 mcg PO ACB #0 tab Polyethylene Glycol 3350 [Miralax] 17 g PO DAILY #0 bottle Amiodarone [Pacerone] 200 mg PO DAILY #0 tab Meloxicam [Mobic] 7.5 mg PO DAILY #0 Memantine [Namenda] 10 mg PO BID Acetaminophen [Tylenol] 325 - 650 mg PO Q5H PRN tablet PRN Reason: Discomfort Donepezil [Aricept] 10 mg PO HS tablet Referrals: Benjamín Hameed MD [Family Provider] -
--- NOTE | 2017-05-11 14:37 | Emergency Department Report ---
Medical Clearance HPI - General Chief complaint: Medical Clearance Stated complaint: evaluation Time Seen by Provider: 05/11/17 14:32 Source: patient, family Mode of arrival: wheelchair - History of Present Illness HPI Narrative: 81 YO F brought to ED by and daughter for generation clearance. Daughter states that patient has become more confused over the last 2 days. She called PCP's office today and was told to come to ED for generations clearance. When patient is asked why she is here today she says she has a headache. Patient has been having frequent headaches. Patient nor her knows if she has had any medication for headache today. Patient was [place] [facility] [place] 05[place]07[place] and dismissed on 05-09-17 for weakness and encephalopathy. Patient has dementia and has had increasing decline over the last few weeks with multiple falls. Home medications: Home Medications Medication Instructions Recorded Confirmed Amiodarone [Pacerone] 200 mg PO DAILY #0 tab 12/13/16 05/11/17 Carvedilol [Coreg] 3.125 mg PO BIDWM #0 tab 12/13/16 05/11/17 Ferrous Sulfate 324 mg PO WB #0 tab 12/13/16 05/11/17 Fludrocortisone [Florinef] 0.1 mg PO DAILY #0 tab 12/13/16 05/11/17 Gabapentin [Neurontin] 600 mg PO TID #0 tab 12/13/16 05/11/17 Levothyroxine Sodium [Synthroid] 112 mcg PO ACB #0 tab 12/13/16 05/11/17 Meloxicam [Mobic] 7.5 mg PO DAILY #0 12/13/16 05/11/17 Multivitamin [Multi-Day Vitamins] 1 tab PO BID #30 tab 12/13/16 05/11/17 Omeprazole 20 mg PO ACB #0 cap 12/13/16 05/11/17 Polyethylene Glycol 3350 [Miralax] 17 g PO DAILY #0 bottle 12/13/16 05/11/17 Primidone [Mysoline] 50 mg PO TID #0 tab 12/13/16 05/11/17 Saccharomyces Boulardii [Florastor] 250 mg PO PRN #0 12/13/16 05/11/17 Sennosides [Senokot] 8.6 mg PO DAILY #0 tab 12/13/16 05/11/17 Lisinopril [Prinivil] 5 mg PO DAILY 04/29/17 05/11/17 Venlafaxine [Effexor] 75 mg PO TID 04/29/17 05/11/17 CephALEXin [Keflex] 250 mg PO DAILY 05/06/17 05/11/17 Cholecalciferol (Vitamin D3) 4,000 unit PO DAILY 05/06/17 05/11/17 [Vitamin D3] Divalproex Sodium 125 mg PO BID 05/06/17 05/11/17 Ibuprofen 200 mg PO Q4H PRN 05/06/17 05/11/17 Memantine [Namenda] 10 mg PO BID 05/06/17 05/11/17 Oxycodone/APAP 7.5/325 [Percocet 1 tab PO Q4H PRN 05/06/17 05/11/17 7.5/325] Turmeric Root Extract [Turmeric] 1,500 mg PO DAILY 05/06/17 05/11/17 Previous Rx's Medication Instructions Recorded Acetaminophen [Tylenol] 325 - 650 mg PO Q5H PRN tablet 05/09/17 Donepezil [Aricept] 10 mg PO HS tablet 05/09/17 Melatonin 3 mg PO HS PRN tablet 05/09/17 Allergies/Adverse reactions: Allergies Allergy/AdvReac Type Severity Reaction Status Date / Time Penicillins Allergy Severe ANAPHYLACTIC-ENDED Verified 05/06/17 12:00 IN ICU FOR A DAY fluoxetine Allergy Unknown Verified 05/06/17 12:00 Iodinated Contrast- Oral and Allergy Unknown RASH,SOA Verified 05/06/17 12:00 IV Dye morphine Allergy Unknown Verified 05/06/17 12:00 nitrofurantoin Allergy Unknown Verified 05/06/17 12:00 Sulfa (Sulfonamide Allergy Unknown RASH,ITCHY Verified 05/06/17 12:00 Antibiotics) aspirin AdvReac Intermediate HIGH BP, Verified 05/06/17 12:00 SOA naproxen AdvReac Intermediate Shortness Verified 05/06/17 12:00 of Breath (Air) metoclopramide AdvReac Unknown Verified 05/06/17 12:00 Review of Systems Limitations: ROS unobtainable due to patient's medical condition PFSH Patient Stated Medical History Alzheimer's Disease Yes Dementia Yes Cataracts Yes Other HEENT Yes: Fractured right side of face Cardiac Arrhythmia Yes Hypertension Yes Valvular Heart Disease Yes Asthma Yes Bronchitis Yes Chronic Obstructive Pulmonary Yes: previously diagnosed, daughter reports it Disease (COPD) is gone now Pneumonia Yes Gastroesophageal Reflux Yes Disease Other GI Yes: Chronic Constipation and previous laxative abuse Hx Urinary Tract Infection Yes Other Yes: Kidney repair Anemia Yes Clotting Problems Yes Other Musculoskeletal Yes: Degenerative Arthritis Cellulitis Yes Shingles Yes Depression Yes Post Menopausal Yes Clinic Medical History Headache (Chronic Medical) Hyperlipidemia (Chronic Medical) Mitral valve prolapse (Chronic Medical) Osteoporosis (Chronic Medical) Surgical History: 1. Cholecystectomy: December 2008. 2. Gastric bypass x 2. 3. Right TKR. 4. Kidney surgery Family History: Family History Son Bipolar 1 disorder Unknown , Suicide Bipolar 1 disorder Mother Coronary artery disease Osteoporosis Stroke Father Coronary artery disease Glaucoma Brother HTN (hypertension) Hyperlipidemia Sister Colon cancer - Social History Smoking status: Never smoker Household members: spouse Physical Exam - Limitations Limitations: other (dementia) - General General appearance: alert, in no apparent distress - Normal Exams: Head:: Normocephalic without trauma Eyes:: Pupils are PERRLA w/ EOMI, No scleral icterus, irritation ENMT:: No facial trauma, nasal exudates, pharyngeal erythema, or exudates are noted Neck:: Full range of motion, without adenopathy Chest/Respirations:: Clear all santiago, with good airflow, and symmetry bilaterally Cardiovascular:: Regular rate and rhythm Abdomen:: Bowel sounds positive, soft, non-tender, non-distended Musculoskeletal:: No tenderness, or deformity noted Integumentary:: No rashes - Neurological Exam Neurological exam: Present: alert, CN II-XII intact, reflexes normal. Absent: oriented X3 (orient to person and knows she is at the hospital but not [facility]) Course Vital Signs Temperature 97.8 F 05/11/17 14:24 Pulse Rate 72 05/11/17 14:24 Respiratory Rate 14 05/11/17 14:24 Blood Pressure 120/70 05/11/17 14:24 Pulse Oximetry 97 05/11/17 14:24 Temperature 97.0 F 05/11/17 20:52 Pulse Rate 70 05/11/17 20:52 Respiratory Rate 20 05/11/17 20:52 Blood Pressure 130/76 05/11/17 20:52 Pulse Oximetry 97 05/11/17 20:52 Medical Clearance - [facility] Narrative Medical decision making narrative: Patient had no acute findings on head CT on 05-06-17 and 05-08-17, labs were noncontributory from recent hospitalization. [facility] does not feel patient needs labs or CT today. Patient was screened and [facility] to [facility]. Differential dx. Delirium Dementia Depression Self Care Deficit - Medical Records Attestation: I reviewed the patient's medical records. Disposition Clinical Impression: Medical clearance for psychiatric admission Dementia Qualifiers: Dementia type: unspecified type Dementia behavioral disturbance: without behavioral disturbance Qualified Code(s): F03.90 - Unspecified dementia without behavioral disturbance Disposition: 63 To [facility] Condition: Stable - Seen By: midlevel
[2017-05-11] MEDS ORDERED: LORazepam 0.5 MG TABLET PO PRN (16:03)
[2017-05-11] MEDS ORDERED: HALOPERIDOL 5 MG/ML INJECTION IM PRN ×2 (16:03→16:56)
[2017-05-11] MEDS ORDERED: HALOPERIDOL 0.5 MG TABLET PO PRN ×2 (16:03→16:56)
[2017-05-11] MEDS ORDERED: IBUPROFEN 200 MG TABLET PO PRN (16:06)
[2017-05-11] MEDS ORDERED: OXYCODONE/APAP 7.5 MG/325 MG TABLET PO PRN (16:06)
[2017-05-11] MEDS ORDERED: MELATONIN 1 MG TABLET PO PRN (16:06)
[2017-05-11] MEDS ORDERED: CARVEDILOL 3.125 MG TABLET PO SCH (17:30)
[2017-05-11] MEDS: CARVEDILOL 3.125 MG TABLET PO SCH (18:40)
--- NOTE | 2017-05-11 19:59 | 24 Hour Neuropsychiatic Eval ---
Date of Admission: 05/11/17 16:35 Chief complaint: "My head hurts" History of Present Illness: HPI: 81 Y/O CF with a hx of dementia and depression admitted for increasing confusing and self care failure over the last two days. Pt was reportedly recently in [facility] for some delirium. Family reports recently the pt had a fall and has been more confused over the last two days. On face to face the pt is pleasant but confused. She is only oriented to self. She states she is not sure why she is here but believes it is due to pain. She is a poor historian and scored a 5 on her SLUMS. She reports her mood is stable and denies any psychotic symptoms. PAST PSYCH: Pt is a poor historian but was on our unit last year when she was treated for depression and self care failure. She reportedly has a hx of dementia as well. [facility] Medical History Headache (Chronic Medical) Hyperlipidemia (Chronic Medical) Mitral valve prolapse (Chronic Medical) Osteoporosis (Chronic Medical) Surgical History: 1. Cholecystectomy: December 2008. 2. Gastric bypass x 2. 3. Right TKR. 4. Kidney surgery Family History: Family History Son Bipolar 1 disorder Unknown , Suicide Bipolar 1 disorder Mother Coronary artery disease Osteoporosis Stroke Father Coronary artery disease Glaucoma Brother HTN (hypertension) Hyperlipidemia Sister Colon cancer - Social History Smoking status: Never smoker Review of Systems - Musculoskeletal Musculoskeletal: Present: back pain, neck pain - Psychiatric Psychiatric: Present: behavioral changes, mood swings Mental Status Exam Vitals: Last Vital Signs Temp 97.3 F 05/11/17 16:59 Pulse 76 05/11/17 16:59 Resp 20 05/11/17 16:59 BP 150/86 H 05/11/17 16:59 Pulse Ox 97 05/11/17 16:59 Height: 1.65 m Weight: 90.2 kg - Mental Status Exam Muscle Strength/Tone: Weak Dressing: Casual Grooming: Fair Attitude: Guarded Motor Activity: Retardation Eye Contact: Fair Speech: Slowed Volume: Soft Rhythm: Appropriate Rhythm Orientation: Oriented to person, Oriented to place Mood: Neutral Affect: Anxious Rate of Thoughts: Delayed Thought Organization: [place] Associations: [employer] Abstract Reasoning: Poor abstract reasoning Thought Content: Normal Perception/Psychotic: Hx psychosis, not current Language: Naming Impaired Fund of Knowledge: Poor fund of knowledge Memory: Poor-immediate, Poor-recent Suicidal Ideation: None Homicidal Ideation: None Insight: Poor Judgement: Poor Impulse Control: Poor Assessment and Plan (1) Major neurocognitive disorder Problem details: with Behavioral Disturbance Current visit: Yes Status: Acute (2) MDD (major depressive disorder) Qualifiers: Major depression recurrence: recurrent Current visit: Yes Status: Acute Continue to evaluate and stabilize. Will continue home meds including Effexor and Depakote. Consult medical team for medical management
[2017-05-11] MEDS ORDERED: GABAPENTIN 600 MG TABLET PO SCH (21:00)
[2017-05-11] MEDS ORDERED: MEMANTINE 10 MG TABLET PO SCH (21:00)
[2017-05-11] MEDS ORDERED: DONEPEZIL 10 MG TABLET PO SCH (21:00)
[2017-05-11] MEDS ORDERED: DIVALPROEX 125 MG TABLET PO SCH (21:00)
[2017-05-11] MEDS: DIVALPROEX 125 MG TABLET PO SCH (21:07)
[2017-05-11] MEDS ORDERED: MAG-AL + SIM ORAL LIQUID 30ml PO PRN (21:07)
[2017-05-11] MEDS: GABAPENTIN 600 MG TABLET PO SCH (21:07)
[2017-05-11] MEDS: MEMANTINE 10 MG TABLET PO SCH (21:07)
[2017-05-11] MEDS: DONEPEZIL 10 MG TABLET PO SCH (21:09)
[2017-05-11] MEDS: MELATONIN 1 MG TABLET PO PRN (21:21)
[2017-05-11] MEDS: OXYCODONE/APAP 7.5 MG/325 MG TABLET PO PRN (21:22)
[2017-05-11] MEDS: Venlaflaxine XR 75 MG CAPSULE (24hr) PO SCH (22:34)
[2017-05-12] MEDS: OMEPRAZOLE 20 MG CAPSULE PO SCH (05:38)
[2017-05-12] MEDS: LEVOTHYROXINE 112 MCG TABLET PO SCH (05:39)
[2017-05-12] MEDS ORDERED: OMEPRAZOLE 20 MG CAPSULE PO SCH (06:30)
[2017-05-12] MEDS ORDERED: LEVOTHYROXINE 112 MCG TABLET PO SCH (06:30)
[2017-05-12] MEDS: OXYCODONE/APAP 7.5 MG/325 MG TABLET PO PRN ×2 (06:43→18:31)
[2017-05-12] MEDS ORDERED: FERROUS SULFATE 324 MG TABLET PO SCH (08:00)
--- NOTE | 2017-05-12 08:11 | History & Physical Report ---
<MenaTrisha D - Last Filed: 05/12/17 09:05> History of Present Illness Date: 05/12/17 Chief complaint: Headache HPI: Diana Brunson is an 81 y/o woman who was admitted to [facility] on 05/11/17 for increasing confusion at home. She was actually hospitalized at [facility] from -05/09/17 for encephalopathy and falling, but workup was negative and she was discharged home with what family considered a safe discharge plan. However, since arriving home she's exhibited increasing decline and confusion. At baseline she's A&O x1 and is usually pleasantly confused. However, since discharge home she's been refusing cares and has been resistant to get out of bed. She didn't want to change her clothes. She's also been forgetting family members, and speaking of grandsons as if they were still living. Despite support from family members and home health aids, she has been failing at home, and her spouse is no longer able to effectively care for her anymore. When she was examined this morning she complained of a terrible global headache (she was in no acute distress and smiled frequently). She was quite talkative. She also noted left great toe pain - denies trauma or hx of gout (however she has had frequent falls). She denied chest pain, cough/cold, dyspnea, but frequently conversation turned back to her headache, so ROS was limited. She did state she was tired and not ready to get out of bed for the moment. Review of Systems ROS unobtainable: due to mental status (limited ROS - pt focused on painful areas (headache, left toe)) Review of systems: She denied any recent fevers or illnesses, chest pain or dyspnea, but frequently conversation turned back to headaches. - Constitutional Constitutional: Present: headache(s) - Cardiovascular Cardiovascular: Present: other (hx A-fib) - Gastrointestinal Gastrointestinal: Present: constipation (positive hx) - Genitourinary Genitourinary: Present: other (hx UTI) - Musculoskeletal Musculoskeletal: Present: as per HPI - Neurological Neurological: Present: as per HPI, frequent falls, headache(s) - Psychiatric Psychiatric: Present: behavioral changes, depression PFSH Dementia Gait instability with frequent falls Chronic headaches Elevated TSH-she is on Synthroid but has been forgetting to take her medications at times Severe constipation Moderate aortic stenosis Mitral valve prolapse Coronary artery disease Anemia History of borderline low B 12 Paroxysmal A. fib-off of anticoagulation because of fall risk HTN Asthma/COPD Osteoporosis OA GERD Cataracts Surgical History: 1. Cholecystectomy: December 2008. 2. Gastric bypass x 2. 3. Right TKR. 4. Kidney surgery Family History: Son Bipolar 1 disorder Mother - Coronary artery disease, Osteoporosis, Stroke Father - Coronary artery disease, Glaucoma Brother HTN (hypertension), Hyperlipidemia Sister Colon cancer - Social History Smoking status: Never smoker Alcohol intake frequency: does not drink Housing: house Household members: spouse Medications Home Medications Medication Instructions Recorded Confirmed Type Amiodarone [Pacerone] 200 mg PO DAILY #0 tab 12/13/16 05/11/17 History Carvedilol [Coreg] 3.125 mg PO BIDWM #0 tab 12/13/16 05/11/17 History Ferrous Sulfate 324 mg PO WB #0 tab 12/13/16 05/11/17 History Fludrocortisone [Florinef] 0.1 mg PO DAILY #0 tab 12/13/16 05/11/17 History Gabapentin [Neurontin] 600 mg PO TID #0 tab 12/13/16 05/11/17 History Levothyroxine Sodium [Synthroid] 112 mcg PO ACB #0 tab 12/13/16 05/11/17 History Meloxicam [Mobic] 7.5 mg PO DAILY #0 12/13/16 05/11/17 History Multivitamin [Multi-Day Vitamins] 1 tab PO BID #30 tab 12/13/16 05/11/17 History Omeprazole 20 mg PO ACB #0 cap 12/13/16 05/11/17 History Polyethylene Glycol 3350 [Miralax] 17 g PO DAILY #0 bottle 12/13/16 05/11/17 History Primidone [Mysoline] 50 mg PO TID #0 tab 12/13/16 05/11/17 History Saccharomyces Boulardii [Florastor] 250 mg PO PRN #0 12/13/16 05/11/17 History Sennosides [Senokot] 8.6 mg PO DAILY #0 tab 12/13/16 05/11/17 History Lisinopril [Prinivil] 5 mg PO DAILY 04/29/17 05/11/17 History Venlafaxine [Effexor] 75 mg PO TID 04/29/17 05/11/17 History CephALEXin [Keflex] 250 mg PO DAILY 05/06/17 05/11/17 History Cholecalciferol (Vitamin D3) 4,000 unit PO DAILY 05/06/17 05/11/17 History [Vitamin D3] Divalproex Sodium 125 mg PO BID 05/06/17 05/11/17 History Ibuprofen 200 mg PO Q4H PRN 05/06/17 05/11/17 History Memantine [Namenda] 10 mg PO BID 05/06/17 05/11/17 History Oxycodone/APAP 7.5/325 [Percocet 1 tab PO Q4H PRN 05/06/17 05/11/17 History 7.5/325] Turmeric Root Extract [Turmeric] 1,500 mg PO DAILY 05/06/17 05/11/17 History Allergies Allergy/AdvReac Type Severity Reaction Status Date / Time Penicillins Allergy Severe ANAPHYLACTIC-ENDED Verified 05/06/17 12:00 IN ICU FOR A DAY fluoxetine Allergy Unknown Verified 05/06/17 12:00 Iodinated Contrast- Oral and Allergy Unknown RASH,SOA Verified 05/06/17 12:00 IV Dye morphine Allergy Unknown Verified 05/06/17 12:00 nitrofurantoin Allergy Unknown Verified 05/06/17 12:00 Sulfa (Sulfonamide Allergy Unknown RASH,ITCHY Verified 05/06/17 12:00 Antibiotics) aspirin AdvReac Intermediate HIGH BP, Verified 05/06/17 12:00 SOA naproxen AdvReac Intermediate Shortness Verified 05/06/17 12:00 of Breath (Air) metoclopramide AdvReac Unknown Verified 05/06/17 12:00 Exam Vital Signs: Temperature 97.0 F 05/11/17 20:52 Pulse Rate 70 05/11/17 20:52 Respiratory Rate 20 05/11/17 20:52 Blood Pressure 130/76 05/11/17 20:52 Pulse Oximetry 97 05/11/17 20:52 - Constitutional Present: no acute distress, well nourished, well developed - Routine HEENT Exam Head: Present: normocephalic Eye: Present: EOMI, scleral injection (R>L) ENT: Present: mucous membranes moist - Routine Neck Exam Present: supple - Routine Respiratory Exam Present: CTA bilaterally. Absent: wheezes - Routine Cardiovascular Exam Present: S1, S2, murmur (4/6), irregular rhythm - Routine Abdominal Exam Present: soft, normoactive bowel sounds, tenderness (complained of diffuse pain on palpation), non distended. Absent: rebound, guarding - Routine Extremities Exam Present: no edema, pulses intact, normal capillary refill. Absent: calf tenderness - Detailed Lower Extremity Exam Foot/Toes: Left erythema (mild erythema and tenderness to left great toe) - Routine Skin Exam Present: intact, dry, pallor, warm - Routine Neurological Exam Present: alert. Absent: oriented X3 (x1) - Routine Psychiatric Exam Present: normal affect, cooperative Assessment and Plan (1) Major neurocognitive disorder Problem details: with Behavioral Disturbance Current visit: Yes Status: Acute Resuscitation Status: Full Code Assessment and Plan: ASSESSMENT Dementia with behavioral changes Gait instability with frequent falls Chronic headaches Elevated TSH-she is on Synthroid but has been forgetting to take her medications at times Severe constipation Moderate aortic stenosis Mitral valve prolapse Coronary artery disease Anemia; History of borderline low B 12 Paroxysmal A. fib-off of anticoagulation because of fall risk HTN Asthma/COPD PLAN Obtain BMP, CBC, UA. Headache is primary concern - last hospitalization head CT was negative for acute findings. She's on a variety of different analgesics for her headaches. Provide safe environment - hx of frequent falls. TSH was checked 05/06/17 - 10.2, though there were reports that she wasn't taking her Synthroid at home. This has been resumed. Vit B12 was 554 - start oral replacement. She's on Keflex 250 mg daily as a home med - in review of [facility] records, Dr. Garcia Rx Keflex daily, likely prophylactic for recurrent UTI. CM working on DC plans. Psych H&P reviewed - psych meds are continued at this point. Sepsis Assessment - Evaluation Sepsis screening result: No Definite Risk Hospital Course Summary Disclaimer: The visit summary below is not to be considered part of the above Progress Note. Hospital Course: 05/12/17 Hospitalist ASSESSMENT Dementia with behavioral changes Gait instability with frequent falls Chronic headaches Elevated TSH-she is on Synthroid but has been forgetting to take her medications at times Severe constipation Moderate aortic stenosis Mitral valve prolapse Coronary artery disease Anemia; History of borderline low B 12 Paroxysmal A. fib-off of anticoagulation because of fall risk HTN Asthma/COPD PLAN Obtain BMP, CBC, UA. Headache is primary concern - last hospitalization head CT was negative for acute findings. She's on a variety of different analgesics for her headaches. Provide safe environment - hx of frequent falls. TSH was checked 05/06/17 - 10.2, though there were reports that she wasn't taking her Synthroid at home. This has been resumed. Vit B12 was 554 - start oral replacement. She's on Keflex 250 mg daily as a home med - in review of [facility] records, Dr. Garcia Rx Keflex daily, likely prophylactic for recurrent UTI. CM working on DC plans. Psych H&P reviewed - psych meds are continued at this point. <Abeba Harrington - Last Filed: 05/12/17 20:30> History of Present Illness Date: 05/12/17 [facility] Patient Stated Medical History Alzheimer's Disease Yes Dementia Yes Cataracts Yes Other HEENT Yes: Fractured right side of face Cardiac Arrhythmia Yes Hypertension Yes Valvular Heart Disease Yes Asthma Yes Bronchitis Yes Chronic Obstructive Pulmonary Yes: previously diagnosed, daughter reports it Disease (COPD) is gone now Pneumonia Yes Gastroesophageal Reflux Yes Disease Other GI Yes: Chronic Constipation and previous laxative abuse Hx Urinary Tract Infection Yes Other Yes: Kidney repair Anemia Yes Clotting Problems Yes Other Musculoskeletal Yes: Degenerative Arthritis Cellulitis Yes Shingles Yes Depression Yes Post Menopausal Yes Clinic Medical History Headache (Chronic Medical) Hyperlipidemia (Chronic Medical) Mitral valve prolapse (Chronic Medical) Osteoporosis (Chronic Medical) Family History: Family History Son Bipolar 1 disorder Unknown , Suicide Bipolar 1 disorder Mother Coronary artery disease Osteoporosis Stroke Father Coronary artery disease Glaucoma Brother HTN (hypertension) Hyperlipidemia Sister Colon cancer Exam Vital Signs: Temperature 97.8 F 05/12/17 16:00 Pulse Rate 76 05/12/17 16:00 Respiratory Rate 16 05/12/17 16:00 Blood Pressure 123/62 05/12/17 16:00 Pulse Oximetry 96 05/12/17 16:00 Results - Labs CBC & Chem 7: 05/12/17 09:40 05/12/17 09:40 Assessment and Plan (1) Major neurocognitive disorder Problem details: with Behavioral Disturbance Current visit: Yes Status: Acute Assessment and Plan: I have independently evaluated and examined this patient. I reviewed the chart, the patient's history, and the CAR FRAMER/PA's documented findings as above. We discussed and formulated the assessment and plan as above with additions as below. In general, the patient is alert and in pleasantly confused. She was, cooperative with exam, and in no respiratory distress. HEENT: Head is atraumatic, normocephalic, no conjunctival petechiae, no oral thrush, mucous membranes are moist and pink. Lungs: Clear to auscultation without wheezes, crackles or rhonchi CV: Regular rate and rhythm without murmur Abdomen: Soft, nontender, bowel sounds are present, there is no guarding no rebound. Extremities: No clubbing, no cyanosis, no edema. Skin: Warm and dry no sign of rash Neuro: Patient is very talkative, slightly confused. She moves all 4 extremities , no unilateral weakness. To clarify patient's original hospitalization earlier this week. When she was admitted to the hospital, case management explored all avenues to get the patient transferred to a long-term care facility. Secondary to insurance issues, we are unable to find any long-term wound care institution that would be willing to provide care for her in a timely manner and still meet the time frame given to us by her insurance for her hospitalization. Family made arrangements for a granddaughter to stay with her during the day while we were trying to find a better option for her. Subsequent changes as noted above resulted in the patient qualifying for hospitalization in the [facility]. Reviewed the indications for cephalexin. I believe the risk of developing a resistant organism or an adverse reaction to cephalexin or C. difficile colitis is much higher than any benefit as a prophylaxis for recurrent UTIs and therefore we will discontinue her cephalexin. Hospital Course Summary Disclaimer: The visit summary below is not to be considered part of the above Progress Note.
[2017-05-12] MEDS ORDERED: LISINOPRIL 5 MG TABLET PO SCH (09:00)
[2017-05-12] MEDS ORDERED: SENNOSIDES 8.6 MG TABLET PO SCH (09:00)
[2017-05-12] MEDS ORDERED: AMIODARONE 200 MG TABLET PO SCH (09:00)
[2017-05-12] MEDS ORDERED: POLYETHYL GLYCOL 3350 17gm PACKET PO SCH (09:00)
[2017-05-12] MEDS ORDERED: FLUDROCORTISONE 0.1 MG TABLET PO SCH (09:00)
[2017-05-12] MEDS ORDERED: BISACODYL 10 MG SUPPOSITORY RECTALLY PRN (09:25)
[2017-05-12] MEDS: CARVEDILOL 3.125 MG TABLET PO SCH ×2 (09:29→17:44)
[2017-05-12] MEDS: FERROUS SULFATE 324 MG TABLET PO SCH (09:30)
[2017-05-12] MEDS: Venlaflaxine XR 75 MG CAPSULE (24hr) PO SCH (09:30)
[2017-05-12] MEDS: FLUDROCORTISONE 0.1 MG TABLET PO SCH (09:31)
[2017-05-12] MEDS: DIVALPROEX 125 MG TABLET PO SCH (09:31)
[2017-05-12] MEDS: POLYETHYL GLYCOL 3350 17gm PACKET PO SCH (09:32)
[2017-05-12] MEDS: AMIODARONE 200 MG TABLET PO SCH (09:34)
[2017-05-12] MEDS: GABAPENTIN 600 MG TABLET PO SCH ×3 (09:34→20:20)
[2017-05-12] MEDS: MEMANTINE 10 MG TABLET PO SCH ×2 (09:34→20:20)
[2017-05-12] MEDS: SENNOSIDES 8.6 MG TABLET PO SCH (09:57)
[2017-05-12] MEDS: LISINOPRIL 5 MG TABLET PO SCH (09:57)
[2017-05-12] MEDS: IBUPROFEN 200 MG TABLET PO PRN (15:12)
[2017-05-12] MEDS: LORazepam 0.5 MG TABLET PO PRN (18:30)
[2017-05-12] MEDS ORDERED: DIVALPROEX 125 MG TABLET PO SCH (18:52)
--- NOTE | 2017-05-12 18:52 | Neuropsych Progress Note ---
[facility] Subjective Date: 05/12/17 - Sujective/Severity of Illness Medications: Al Hydroxide/Mg Hydroxide (Maalox Plus) 30 ml PO Q6H PRN PRN Reason: Indigestion Last Admin: 05/11/17 21:11 Dose: 30 ml Amiodarone HCl (Pacerone) 200 mg PO DAILY [facility] Last Admin: 05/12/17 09:34 Dose: 200 mg Bisacodyl (Dulcolax) 10 mg RECTALLY DAILY PRN PRN Reason: Constipation Last Admin: 05/12/17 10:38 Dose: 10 mg Carvedilol (Coreg) 3.125 mg PO BIDWM [facility] Last Admin: 05/12/17 17:44 Dose: 3.125 mg Cephalexin HCl (Keflex) 250 mg PO DAILY [facility] Last Admin: 05/12/17 09:31 Dose: 250 mg Cholecalciferol (Vit. D-3) 4,000 unit PO DAILY [facility] Last Admin: 05/12/17 09:57 Dose: 4,000 unit Cyanocobalamin (Vit. B-12) 500 mcg PO DAILY [facility] Divalproex Sodium (Depakote) 125 mg PO BID [facility] Last Admin: 05/12/17 09:31 Dose: 125 mg Donepezil HCl (Aricept) 10 mg PO HS [facility] Last Admin: 05/11/17 21:09 Dose: 10 mg Ferrous Sulfate (Feosol) 324 mg PO WB [facility] Last Admin: 05/12/17 09:30 Dose: 324 mg Fludrocortisone Acetate (Florinef) 0.1 mg PO DAILY [facility] Last Admin: 05/12/17 09:31 Dose: 0.1 mg Gabapentin (Neurontin) 600 mg PO TID [facility] Last Admin: 05/12/17 15:20 Dose: 600 mg Haloperidol (Haldol) 0.5 mg PO Q6H PRN PRN Reason: Extreme agitation Haloperidol Lactate (Haldol) 0.5 mg IM Q6H PRN PRN Reason: Extreme agitation Ibuprofen (Motrin) 200 mg PO Q4H PRN PRN Reason: Pain Last Admin: 05/12/17 15:12 Dose: 200 mg Levothyroxine Sodium (Synthroid) 112 mcg PO ACB [facility] Last Admin: 05/12/17 05:39 Dose: 112 mcg Lisinopril (Prinivil) 5 mg PO DAILY [facility] Last Admin: 05/12/17 09:57 Dose: 5 mg Lorazepam (Ativan) 0.5 mg PO Q6H PRN PRN Reason: Extreme agitation Last Admin: 05/12/17 18:30 Dose: 0.5 mg Lorazepam (Ativan Inj) 0.5 mg IM Q6H PRN PRN Reason: Extreme agitation Melatonin (Melatonin) 3 mg PO HS PRN PRN Reason: Insomnia Last Admin: 05/11/17 21:21 Dose: 3 mg Memantine (Namenda) 10 mg PO BID [facility] Last Admin: 05/12/17 09:34 Dose: 10 mg Omeprazole (Prilosec) 20 mg PO ACB [facility] Last Admin: 05/12/17 05:38 Dose: 20 mg Oxycodone/Acetaminophen (Percocet 7.5/325) 1 tab PO Q4H PRN PRN Reason: Pain Last Admin: 05/12/17 18:31 Dose: 1 tab Polyethylene Glycol (Miralax) 17 gm PO DAILY [facility] Last Admin: 05/12/17 09:32 Dose: 17 gm Senna (Senna Lax) 8.6 mg PO DAILY [facility] Last Admin: 05/12/17 09:57 Dose: 8.6 mg Venlafaxine HCl (Effexor Xr) 75 mg PO WB [facility] Last Admin: 05/12/17 09:30 Dose: 75 mg Subjective: Pt seen and chart examined. Nursing reports pt slept well and has a good appetite. Nursing reports pt can be irritable and have a labile mood and is confused. On face to face the pt is confused. She is only oriented to self. She reports a AMANDA and states this is a chronic issue. She voices no other concerns. Tolerating meds Start Time: 17:15 Stop Time: 17:30 Mental Status Exam Vitals: Last Vital Signs Temp 97.8 F 05/12/17 16:00 Pulse 76 05/12/17 16:00 Resp 16 05/12/17 16:00 BP 123/62 05/12/17 16:00 Pulse Ox 96 05/12/17 16:00 Height: 1.65 m Weight: 90.2 kg - Mental Status Exam Muscle Strength/Tone: Weak Dressing: Casual Grooming: Fair Attitude: Guarded Motor Activity: Retardation Eye Contact: Fair Speech: Slowed Volume: Soft Rhythm: Appropriate Rhythm Orientation: Oriented to person, Oriented to place Mood: Neutral Rate of Thoughts: Delayed Thought Organization: [place] Associations: [employer] Abstract Reasoning: Poor abstract reasoning Thought Content: Normal Perception/Psychotic: Hx psychosis, not current Language: Naming Impaired Fund of Knowledge: Poor fund of knowledge Memory: Poor-immediate, Poor-recent Suicidal Ideation: None Homicidal Ideation: None Insight: Poor Judgement: Poor Impulse Control: Poor - Laboratory Result Diagrams: 05/12/17 09:40 05/12/17 09:40 Laboratory Results - last 24 hr 05/12/17 05/12/17 09:40 09:40 WBC 3.6 L RBC 3.65 L Hgb 11.8 L Hct 35.9 L MCV 98.4 MCH 32.3 MCHC 32.9 RDW Std Deviation 48.3 Plt Count 202 MPV 10.0 Immature Gran % (Auto) 1.4 H Neut % (Auto) 49.4 Lymph % (Auto) 36.0 [place] % (Auto) 11.8 H Eos % (Auto) 0.8 Baso % (Auto) 0.6 Neut # 1.8 Lymph # 1.3 [place] # 0.4 Eos # 0.0 Baso # 0.0 Abs Immat Gran (auto) 0.05 H Turbidity < 20 Sodium 138 Potassium 4.2 Chloride 100 Carbon Dioxide 30 Anion Gap 8 BUN 12.0 Creatinine 0.7 GFR Calculation 80 BUN/Creatinine Ratio 17 Glucose 86 Calculated Osmolality 265 Calcium 8.9 Icterus Index < 2 Specimen Hemolysis < 15 Assessment and Plan (1) Major neurocognitive disorder Problem details: with Behavioral Disturbance Current visit: Yes Status: Acute (2) MDD (major depressive disorder) Qualifiers: Major depression recurrence: recurrent Current visit: Yes Status: Acute Hospital Course Summary Disclaimer: The visit summary below is not to be considered part of the above Progress Note. Hospital Course: 05/12/17 Hospitalist ASSESSMENT Dementia with behavioral changes Gait instability with frequent falls Chronic headaches Elevated TSH-she is on Synthroid but has been forgetting to take her medications at times Severe constipation Moderate aortic stenosis Mitral valve prolapse Coronary artery disease Anemia; History of borderline low B 12 Paroxysmal A. fib-off of anticoagulation because of fall risk HTN Asthma/COPD PLAN Obtain BMP, CBC, UA. Headache is primary concern - last hospitalization head CT was negative for acute findings. She's on a variety of different analgesics for her headaches. Provide safe environment - hx of frequent falls. TSH was checked 05/06/17 - 10.2, though there were reports that she wasn't taking her Synthroid at home. This has been resumed. Vit B12 was 554 - start oral replacement. She's on Keflex 250 mg daily as a home med - in review of [facility] records, Dr. Garcia Rx Keflex daily, likely prophylactic for recurrent UTI. CM working on DC plans. Psych H&P reviewed - psych meds are continued at this point. 05/12/17 18:51 Pt remains labile. Will increase Depakote to 250mg PO BID
[2017-05-12] MEDS: DONEPEZIL 10 MG TABLET PO SCH (20:19)
[2017-05-12] MEDS: DIVALPROEX 250 MG TABLET PO SCH (20:20)
[2017-05-13] MEDS: LEVOTHYROXINE 112 MCG TABLET PO SCH (06:22)
[2017-05-13] MEDS: OMEPRAZOLE 20 MG CAPSULE PO SCH (06:22)
[2017-05-13] MEDS: CARVEDILOL 3.125 MG TABLET PO SCH ×2 (09:37→17:25)
[2017-05-13] MEDS: FERROUS SULFATE 324 MG TABLET PO SCH (09:41)
[2017-05-13] MEDS: Venlaflaxine XR 75 MG CAPSULE (24hr) PO SCH (09:41)
[2017-05-13] MEDS: GABAPENTIN 600 MG TABLET PO SCH ×3 (09:42→20:16)
[2017-05-13] MEDS: MEMANTINE 10 MG TABLET PO SCH ×2 (09:42→20:16)
[2017-05-13] MEDS: POLYETHYL GLYCOL 3350 17gm PACKET PO SCH (09:42)
[2017-05-13] MEDS: FLUDROCORTISONE 0.1 MG TABLET PO SCH (09:42)
[2017-05-13] MEDS: SENNOSIDES 8.6 MG TABLET PO SCH (09:43)
[2017-05-13] MEDS: LISINOPRIL 5 MG TABLET PO SCH (09:43)
[2017-05-13] MEDS: AMIODARONE 200 MG TABLET PO SCH (09:43)
[2017-05-13] MEDS: IBUPROFEN 200 MG TABLET PO PRN ×2 (09:46→17:29)
[2017-05-13] MEDS: DIVALPROEX 250 MG TABLET PO SCH ×2 (09:46→20:16)
[2017-05-13] MEDS: CYANOCOBALAMIN (B-12) 500mcg TABLET PO SCH (09:51)
--- NOTE | 2017-05-13 12:36 | Neuropsych Progress Note ---
[facility] Subjective Date: 05/13/17 - Sujective/Severity of Illness Medications: Al Hydroxide/Mg Hydroxide (Maalox Plus) 30 ml PO Q6H PRN PRN Reason: Indigestion Last Admin: 05/11/17 21:11 Dose: 30 ml Amiodarone HCl (Pacerone) 200 mg PO DAILY [facility] Last Admin: 05/13/17 09:43 Dose: 200 mg Bisacodyl (Dulcolax) 10 mg RECTALLY DAILY PRN PRN Reason: Constipation Last Admin: 05/12/17 10:38 Dose: 10 mg Carvedilol (Coreg) 3.125 mg PO BIDWM [facility] Last Admin: 05/13/17 09:37 Dose: 3.125 mg Cholecalciferol (Vit. D-3) 4,000 unit PO DAILY [facility] Last Admin: 05/13/17 09:44 Dose: 4,000 unit Cyanocobalamin (Vit. B-12) 500 mcg PO DAILY [facility] Last Admin: 05/13/17 09:51 Dose: 500 mcg Divalproex Sodium (Depakote) 250 mg PO BID [facility] Last Admin: 05/13/17 09:46 Dose: 250 mg Donepezil HCl (Aricept) 10 mg PO HS [facility] Last Admin: 05/12/17 20:19 Dose: 10 mg Ferrous Sulfate (Feosol) 324 mg PO WB [facility] Last Admin: 05/13/17 09:41 Dose: 324 mg Fludrocortisone Acetate (Florinef) 0.1 mg PO DAILY [facility] Last Admin: 05/13/17 09:42 Dose: 0.1 mg Gabapentin (Neurontin) 600 mg PO TID [facility] Last Admin: 05/13/17 09:42 Dose: 600 mg Haloperidol (Haldol) 0.5 mg PO Q6H PRN PRN Reason: Extreme agitation Haloperidol Lactate (Haldol) 0.5 mg IM Q6H PRN PRN Reason: Extreme agitation Ibuprofen (Motrin) 200 mg PO Q4H PRN PRN Reason: Pain Last Admin: 05/13/17 09:46 Dose: 200 mg Levothyroxine Sodium (Synthroid) 112 mcg PO ACB [facility] Last Admin: 05/13/17 06:22 Dose: 112 mcg Lisinopril (Prinivil) 5 mg PO DAILY [facility] Last Admin: 05/13/17 09:43 Dose: 5 mg Lorazepam (Ativan) 0.5 mg PO Q6H PRN PRN Reason: Extreme agitation Last Admin: 05/12/17 18:30 Dose: 0.5 mg Lorazepam (Ativan Inj) 0.5 mg IM Q6H PRN PRN Reason: Extreme agitation Melatonin (Melatonin) 3 mg PO HS PRN PRN Reason: Insomnia Last Admin: 05/11/17 21:21 Dose: 3 mg Memantine (Namenda) 10 mg PO BID [facility] Last Admin: 05/13/17 09:42 Dose: 10 mg Omeprazole (Prilosec) 20 mg PO ACB [facility] Last Admin: 05/13/17 06:22 Dose: 20 mg Oxycodone/Acetaminophen (Percocet 7.5/325) 1 tab PO Q4H PRN PRN Reason: Pain Last Admin: 05/12/17 18:31 Dose: 1 tab Polyethylene Glycol (Miralax) 17 gm PO DAILY [facility] Last Admin: 05/13/17 09:42 Dose: 17 gm Senna (Senna Lax) 8.6 mg PO DAILY [facility] Last Admin: 05/13/17 09:43 Dose: 8.6 mg Venlafaxine HCl (Effexor Xr) 75 mg PO WB [facility] Last Admin: 05/13/17 09:41 Dose: 75 mg Subjective: Pt seen and chart examined. Nursing reports pt is irritable and demanding at times but is redirectable and no behaviors noted. Sleeping well and has a good appetite. On face to face the pt is pleasant but confused. She reports she continues to have a AMANDA. She is only oriented to self and looks to her to answer questions. She reports tolerating her medication well. Start Time: 12:15 Stop Time: 12:30 Mental Status Exam Vitals: Last Vital Signs Temp 97 F 05/13/17 08:00 Pulse 76 05/13/17 08:00 Resp 18 05/13/17 08:00 BP 130/59 05/13/17 08:00 Pulse Ox 99 05/13/17 08:00 Height: 1.65 m Weight: 90.2 kg - Mental Status Exam Muscle Strength/Tone: Weak Dressing: Casual Grooming: Fair Attitude: Guarded Motor Activity: Retardation Eye Contact: Fair Speech: Slowed Volume: Soft Rhythm: Appropriate Rhythm Orientation: Oriented to person, Oriented to place Mood: Neutral Rate of Thoughts: Delayed Thought Organization: [place] Associations: Flight of Ideas Abstract Reasoning: Poor abstract reasoning Thought Content: Normal Perception/Psychotic: Hx psychosis, 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2 Ur Leukocyte Esterase 1+ A Urine RBC None seen Urine WBC 10-20 H Ur Squamous Epith Cells 0-5 Urine Bacteria Trace H Ur Culture Indicated? Cult not indicated Assessment and Plan (1) Major neurocognitive disorder Problem details: with Behavioral Disturbance Current visit: Yes Status: Acute (2) MDD (major depressive disorder) Qualifiers: Major depression recurrence: recurrent Current visit: Yes Status: Acute Hospital Course Summary Disclaimer: The visit summary below is not to be considered part of the above Progress Note. Hospital Course: 05/12/17 Hospitalist ASSESSMENT Dementia with behavioral changes Gait instability with frequent falls Chronic headaches Elevated TSH-she is on Synthroid but has been forgetting to take her medications at times Severe constipation Moderate aortic stenosis Mitral valve prolapse Coronary artery disease Anemia; History of borderline low B 12 Paroxysmal A. fib-off of anticoagulation because of fall risk HTN Asthma/COPD PLAN Obtain BMP, CBC, UA. Headache is primary concern - last hospitalization head CT was negative for acute findings. She's on a variety of different analgesics for her headaches. Provide safe environment - hx of frequent falls. TSH was checked 05/06/17 - 10.2, though there were reports that she wasn't taking her Synthroid at home. This has been resumed. Vit B12 was 554 - start oral replacement. She's on Keflex 250 mg daily as a home med - in review of [facility] records, Dr. Garcia Rx Keflex daily, likely prophylactic for recurrent UTI. CM working on DC plans. Psych H&P reviewed - psych meds are continued at this point. 09/08/17 18:51 Pt remains labile. Will increase Depakote to 250mg PO BID 05/13/17 12:36 Continues to have some mood lability. Continue current care
[2017-05-13] MEDS: DONEPEZIL 10 MG TABLET PO SCH (20:16)
[2017-05-13] MEDS: LORazepam 0.5 MG TABLET PO PRN (21:15)
[2017-05-13] MEDS: OXYCODONE/APAP 7.5 MG/325 MG TABLET PO PRN (22:12)
[2017-05-13] MEDS: MELATONIN 1 MG TABLET PO PRN (22:30)
[2017-05-14] MEDS: POLYETHYL GLYCOL 3350 17gm PACKET PO SCH (08:08)
[2017-05-14] MEDS: OMEPRAZOLE 20 MG CAPSULE PO SCH (08:08)
[2017-05-14] MEDS: LEVOTHYROXINE 112 MCG TABLET PO SCH (08:08)
[2017-05-14] MEDS: FLUDROCORTISONE 0.1 MG TABLET PO SCH (08:09)
[2017-05-14] MEDS: MEMANTINE 10 MG TABLET PO SCH ×2 (08:09→21:37)
[2017-05-14] MEDS: CARVEDILOL 3.125 MG TABLET PO SCH ×2 (08:09→17:21)
[2017-05-14] MEDS: FERROUS SULFATE 324 MG TABLET PO SCH (08:09)
[2017-05-14] MEDS: Venlaflaxine XR 75 MG CAPSULE (24hr) PO SCH (08:09)
[2017-05-14] MEDS: GABAPENTIN 600 MG TABLET PO SCH ×3 (08:09→21:37)
[2017-05-14] MEDS: DIVALPROEX 250 MG TABLET PO SCH ×2 (08:09→21:37)
[2017-05-14] MEDS: AMIODARONE 200 MG TABLET PO SCH (08:09)
[2017-05-14] MEDS: SENNOSIDES 8.6 MG TABLET PO SCH (08:09)
[2017-05-14] MEDS: CYANOCOBALAMIN (B-12) 500mcg TABLET PO SCH (08:10)
[2017-05-14] MEDS: LISINOPRIL 5 MG TABLET PO SCH (08:11)
[2017-05-14] MEDS: IBUPROFEN 200 MG TABLET PO PRN ×2 (08:50→16:43)
--- NOTE | 2017-05-14 08:52 | Progress Note ---
Subjective: Diana was at the dining table, eating breakfast. She looks pale, ill. Staff report that she has been nauseated, but there has been no known vomiting. She is carrying an emesis bag with her. She has been having loose stools. Two other people in generations have been diagnosed with novovirus. She complains of a headache, and holds up her hands on either side of her head and tells me that her headache is "this big". She also complains of diffuse abdominal pain. She rested well last night. Objective Vital signs: Temperature 96.7 F L 05/14/17 08:00 Pulse Rate 76 05/14/17 08:00 Respiratory Rate 16 05/14/17 08:00 Blood Pressure 128/64 05/14/17 08:00 Pulse Oximetry 97 05/14/17 08:00 - Constitutional Present: mild distress, well nourished, well developed - Routine HEENT Exam ENT: Present: mucous membranes moist, oropharynx clear - Routine Respiratory Exam Present: CTA bilaterally - Routine Cardiovascular Exam Present: RRR, S1, S2, murmur - Routine Abdominal Exam Present: soft, non distended, non tender. Absent: normoactive bowel sounds ( hyperactive) - Routine Extremities Exam Present: no edema - Routine Skin Exam Present: dry, pallor, warm - Routine Neurological Exam Present: alert. Absent: oriented X3 (x1) - Routine Psychiatric Exam Present: normal affect, cooperative Results - Labs CBC & Chem 7: 05/12/17 09:40 05/12/17 09:40 Assessment and Plan (1) Major neurocognitive disorder Problem details: with Behavioral Disturbance Current visit: Yes Status: Acute DVT Prophylaxis: SCD's Assessment and Plan: ASSESSMENT Nausea, diarrhea Dementia with behavioral changes Gait instability with frequent falls Chronic headaches Elevated TSH-she is on Synthroid but has been forgetting to take her medications at times Severe constipation Moderate aortic stenosis Mitral valve prolapse Coronary artery disease Anemia; History of borderline low B 12 Paroxysmal A. fib-off of anticoagulation because of fall risk HTN Asthma/COPD Prophylactic Keflex daily for recurrent UTI - discontinued PLAN Diana has nausea, diarrhea. Two others from [facility] have become ill with Norovirus. Will check BMP, CBC, and stool (GI Panel). Vital signs are stable; no hypotension or tachycardia. Afebrile. Prophylactic Keflex was discontinued - risks outweigh benefits. Psych notes reviewed. Discussed with [employer] staff; Dr. Reed aware of Diana's symptoms. Sepsis Assessment - Evaluation Sepsis screening result: No Definite Risk Hospital Course Summary Disclaimer: The visit summary below is not to be considered part of the above Progress Note. Hospital Course: 05/12/17 Hospitalist ASSESSMENT Dementia with behavioral changes Gait instability with frequent falls Chronic headaches Elevated TSH-she is on Synthroid but has been forgetting to take her medications at times Severe constipation Moderate aortic stenosis Mitral valve prolapse Coronary artery disease Anemia; History of borderline low B 12 Paroxysmal A. fib-off of anticoagulation because of fall risk HTN Asthma/COPD PLAN Obtain BMP, CBC, UA. Headache is primary concern - last hospitalization head CT was negative for acute findings. She's on a variety of different analgesics for her headaches. Provide safe environment - hx of frequent falls. TSH was checked 05/06/17 - 10.2, though there were reports that she wasn't taking her Synthroid at home. This has been resumed. Vit B12 was 554 - start oral replacement. She's on Keflex 250 mg daily as a home med - in review of [facility] records, Dr. Garcia Rx Keflex daily, likely prophylactic for recurrent UTI. CM working on DC plans. Psych H&P reviewed - psych meds are continued at this point. 05/12/17 18:51 Pt remains labile. Will increase Depakote to 250mg PO BID 05/13/17 12:36 Continues to have some mood lability. Continue current care 05/14/17 Diana has nausea, diarrhea. Two others from [facility] have become ill with Norovirus. Will check BMP, CBC, and stool (GI Panel). Vital signs are stable; no hypotension or tachycardia. Afebrile. Prophylactic Keflex was discontinued - risks outweigh benefits.
[2017-05-14] MEDS: OXYCODONE/APAP 7.5 MG/325 MG TABLET PO PRN ×4 (09:59→21:37)
--- NOTE | 2017-05-14 12:34 | Neuropsych Progress Note ---
[facility] Subjective Date: 05/14/17 - Sujective/Severity of Illness Medications: Al Hydroxide/Mg Hydroxide (Maalox Plus) 30 ml PO Q6H PRN PRN Reason: Indigestion Last Admin: 05/11/17 21:11 Dose: 30 ml Amiodarone HCl (Pacerone) 200 mg PO DAILY [facility] Last Admin: 05/14/17 08:09 Dose: 200 mg Bisacodyl (Dulcolax) 10 mg RECTALLY DAILY PRN PRN Reason: Constipation Last Admin: 05/12/17 10:38 Dose: 10 mg Carvedilol (Coreg) 3.125 mg PO BIDWM [facility] Last Admin: 05/14/17 08:09 Dose: 3.125 mg Cholecalciferol (Vit. D-3) 4,000 unit PO DAILY [facility] Last Admin: 05/14/17 08:08 Dose: 4,000 unit Cyanocobalamin (Vit. B-12) 500 mcg PO DAILY [facility] Last Admin: 05/14/17 08:10 Dose: 500 mcg Divalproex Sodium (Depakote) 250 mg PO BID [facility] Last Admin: 05/14/17 08:09 Dose: 250 mg Donepezil HCl (Aricept) 10 mg PO HS [facility] Last Admin: 05/13/17 20:16 Dose: 10 mg Ferrous Sulfate (Feosol) 324 mg PO WB [facility] Last Admin: 05/14/17 08:09 Dose: 324 mg Fludrocortisone Acetate (Florinef) 0.1 mg PO DAILY [facility] Last Admin: 05/14/17 08:09 Dose: 0.1 mg Gabapentin (Neurontin) 600 mg PO TID [facility] Last Admin: 05/14/17 08:09 Dose: 600 mg Haloperidol (Haldol) 0.5 mg PO Q6H PRN PRN Reason: Extreme agitation Haloperidol Lactate (Haldol) 0.5 mg IM Q6H PRN PRN Reason: Extreme agitation Ibuprofen (Motrin) 200 mg PO Q4H PRN PRN Reason: Pain Last Admin: 05/14/17 08:50 Dose: 200 mg Levothyroxine Sodium (Synthroid) 112 mcg PO ACB [facility] Last Admin: 05/14/17 08:08 Dose: 112 mcg Lisinopril (Prinivil) 5 mg PO DAILY [facility] Last Admin: 05/14/17 08:11 Dose: 5 mg Lorazepam (Ativan) 0.5 mg PO Q6H PRN PRN Reason: Extreme agitation Last Admin: 05/13/17 21:15 Dose: 0.5 mg Lorazepam (Ativan Inj) 0.5 mg IM Q6H PRN PRN Reason: Extreme agitation Melatonin (Melatonin) 3 mg PO HS PRN PRN Reason: Insomnia Last Admin: 05/13/17 22:30 Dose: 3 mg Memantine (Namenda) 10 mg PO BID [facility] Last Admin: 05/14/17 08:09 Dose: 10 mg Omeprazole (Prilosec) 20 mg PO ACB [facility] Last Admin: 05/14/17 08:08 Dose: 20 mg Oxycodone/Acetaminophen (Percocet 7.5/325) 1 tab PO Q4H PRN PRN Reason: Pain Last Admin: 05/14/17 09:59 Dose: 1 tab Polyethylene Glycol (Miralax) 17 gm PO DAILY [facility] Last Admin: 05/14/17 08:08 Dose: 17 gm Senna (Senna Lax) 8.6 mg PO DAILY [facility] Last Admin: 05/14/17 08:09 Dose: 8.6 mg Venlafaxine HCl (Effexor Xr) 75 mg PO WB [facility] Last Admin: 05/14/17 08:09 Dose: 75 mg Subjective: Pt seen and chart examined. Nursing reports pt is doing well. Sleeping well and has a good appetite. No behaviors noted. On face to face the pt states she continues to deal with a AMANDA. She is pleasant but confused. Only oriented to self. Tolerating meds Start Time: 10:30 Stop Time: 10:45 Mental Status Exam Vitals: Last Vital Signs Temp 96.7 F L 05/14/17 08:00 Pulse 76 05/14/17 08:00 Resp 16 05/14/17 08:00 BP 128/64 05/14/17 08:00 Pulse Ox 97 05/14/17 08:00 Height: 1.65 m Weight: 90.2 kg - Mental Status Exam Muscle Strength/Tone: Weak Dressing: Casual Grooming: Fair Attitude: Guarded Motor Activity: Retardation Eye Contact: Fair Speech: Slowed Volume: Soft Rhythm: Appropriate Rhythm Orientation: Oriented to person, Oriented to place Mood: Neutral Rate of Thoughts: Delayed Thought Organization: [place] Associations: Flight of Ideas Abstract Reasoning: Poor abstract reasoning Thought Content: Normal Perception/Psychotic: Hx psychosis, 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 Language: Naming Impaired Fund of Knowledge: Poor fund of knowledge Memory: Poor-immediate, Poor-recent Suicidal Ideation: None Homicidal Ideation: None Insight: Poor Judgement: Poor Impulse Control: Poor - Laboratory Result Diagrams: 05/14/17 09:38 05/14/17 09:38 Laboratory Results - last 24 hr 05/14/17 05/14/17 09:38 09:38 WBC 2.7 L RBC 3.41 L Hgb 11.0 L Hct 33.9 L MCV 99.4 MCH 32.3 MCHC 32.4 RDW Std Deviation 50.0 Plt Count 190 MPV 9.9 Immature Gran % (Auto) 0.7 H Neut % (Auto) 55.2 Lymph % (Auto) 32.1 [place] % (Auto) 10.1 H Eos % (Auto) 1.5 Baso % (Auto) 0.4 Neut # 1.5 L Lymph # 0.9 L [place] # 0.3 Eos # 0.0 Baso # 0.0 Abs Immat Gran (auto) 0.02 Turbidity < 20 Sodium 134 Potassium 3.9 Chloride 99 Carbon Dioxide 27 Anion Gap 8 BUN 12.0 Creatinine 0.7 GFR Calculation 80 BUN/Creatinine Ratio 17 Glucose 181 H Calculated Osmolality 263 Calcium 8.9 Icterus Index < 2 Specimen Hemolysis < 15 Assessment and Plan (1) Major neurocognitive disorder Problem details: with Behavioral Disturbance Current visit: Yes Status: Acute (2) MDD (major depressive disorder) Qualifiers: Major depression recurrence: recurrent Current visit: Yes Status: Acute Hospital Course Summary Disclaimer: The visit summary below is not to be considered part of the above Progress Note. Hospital Course: 05/12/17 Hospitalist ASSESSMENT Dementia with behavioral changes Gait instability with frequent falls Chronic headaches Elevated TSH-she is on Synthroid but has been forgetting to take her medications at times Severe constipation Moderate aortic stenosis Mitral valve prolapse Coronary artery disease Anemia; History of borderline low B 12 Paroxysmal A. fib-off of anticoagulation because of fall risk HTN Asthma/COPD PLAN Obtain BMP, CBC, UA. Headache is primary concern - last hospitalization head CT was negative for acute findings. She's on a variety of different analgesics for her headaches. Provide safe environment - hx of frequent falls. TSH was checked 05/06/17 - 10.2, though there were reports that she wasn't taking her Synthroid at home. This has been resumed. Vit B12 was 554 - start oral replacement. She's on Keflex 250 mg daily as a home med - in review of [facility] records, Dr. Garcia Rx Keflex daily, likely prophylactic for recurrent UTI. CM working on DC plans. Psych H&P reviewed - psych meds are continued at this point. 05/12/17 18:51 Pt remains labile. Will increase Depakote to 250mg PO BID 05/13/17 12:36 Continues to have some mood lability. Continue current care 05/14/17 Diana has nausea, diarrhea. Two others from [facility] have become ill with Norovirus. Will check BMP, CBC, and stool (GI Panel). Vital signs are stable; no hypotension or tachycardia. Afebrile. Prophylactic Keflex was discontinued - risks outweigh benefits.
[2017-05-14] MEDS: LORazepam 0.5 MG TABLET PO PRN ×2 (12:51→17:21)
[2017-05-14] MEDS: MELATONIN 1 MG TABLET PO PRN (21:37)
[2017-05-15] MEDS: OXYCODONE/APAP 7.5 MG/325 MG TABLET PO PRN ×3 (03:51→17:08)
[2017-05-15] MEDS: LEVOTHYROXINE 112 MCG TABLET PO SCH (06:11)
[2017-05-15] MEDS: FERROUS SULFATE 324 MG TABLET PO SCH (08:48)
[2017-05-15] MEDS: DIVALPROEX 250 MG TABLET PO SCH ×2 (08:48→19:58)
[2017-05-15] MEDS: Venlaflaxine XR 75 MG CAPSULE (24hr) PO SCH (08:48)
[2017-05-15] MEDS: CARVEDILOL 3.125 MG TABLET PO SCH ×2 (08:48→17:08)
[2017-05-15] MEDS: GABAPENTIN 600 MG TABLET PO SCH ×3 (08:49→19:58)
[2017-05-15] MEDS: POLYETHYL GLYCOL 3350 17gm PACKET PO SCH (08:49)
[2017-05-15] MEDS: FLUDROCORTISONE 0.1 MG TABLET PO SCH (08:49)
[2017-05-15] MEDS: MEMANTINE 10 MG TABLET PO SCH ×2 (08:49→19:58)
[2017-05-15] MEDS: AMIODARONE 200 MG TABLET PO SCH (08:50)
[2017-05-15] MEDS: LISINOPRIL 5 MG TABLET PO SCH (08:50)
[2017-05-15] MEDS: SENNOSIDES 8.6 MG TABLET PO SCH (08:50)
[2017-05-15] MEDS: CYANOCOBALAMIN (B-12) 500mcg TABLET PO SCH (08:51)
--- NOTE | 2017-05-15 11:17 | Progress Note ---
Subjective: Patient is seen lying in her bed this morning. She reports she hurts all over, but the most pain is in her head. She reports she does not have a history of headaches. She denies any fall that she is aware of. Given her dementia, this may or may not be accurate. The nurses report she has been consistent in complaining of headache pain. There are 2 separate documentations of headache and 06/13, however, nurses report that she complains frequently, so it's difficult to determine the significance of her pain. She has had some nausea as well. This could be attributed to recent findings of Campylobacter and EPEC. She has had no vomiting and has remained afebrile. Objective Vital signs: Temperature 98.0 F 05/15/17 08:00 Pulse Rate 85 05/15/17 08:00 Respiratory Rate 18 05/15/17 08:00 Blood Pressure 138/74 05/15/17 08:00 Pulse Oximetry 97 05/15/17 08:00 - Constitutional Present: well nourished, well developed - Routine HEENT Exam Head: Present: normocephalic, atraumatic - Routine Respiratory Exam Present: CTA bilaterally. Absent: wheezes - Routine Cardiovascular Exam Present: RRR, S1, S2. Absent: murmur - Routine Abdominal Exam Present: soft, normoactive bowel sounds, tenderness (mild-diffuse), non distended - Routine Extremities Exam Present: no edema, normal capillary refill - Routine Skin Exam Present: dry, warm - Routine Neurological Exam Present: alert, moving all extremities, normal speech - Routine Lymphatic Exam Lymphatic: Absent: adenopathy - Routine Psychiatric Exam Present: normal affect Results - Labs CBC & Chem 7: 05/15/17 06:16 05/15/17 06:16 Labs: Laboratory Tests 05/14/17 08:58 Stool Campylobacter PCR Detected A* Stool EPEC (PCR) Detected A Assessment and Plan (1) Major neurocognitive disorder Problem details: with Behavioral Disturbance Current visit: Yes Status: Acute Assessment and Plan: ASSESSMENT Headache-severe per patient report Campylobacter and enteropathic Escherichia coli stool infection Dementia with behavioral changes Gait instability with frequent falls Chronic headaches Elevated TSH-she is on Synthroid but has been forgetting to take her medications at times Severe constipation Moderate aortic stenosis Mitral valve prolapse Coronary artery disease Anemia; History of borderline low B 12 Paroxysmal A. fib-off of anticoagulation because of fall risk HTN Asthma/COPD Prophylactic Keflex daily for recurrent UTI - discontinued PLAN Patient is in contact precautions given her infection. Given the ongoing, severe headache and nausea in patient with dementia with behavioral changes and at risk for previous unreported fall, will check head CT despite normal head CT on recent hospitalization. Vital signs are stable; no hypotension or tachycardia. Afebrile. Discussed with [facility] staff and Dr. Reed. Sepsis Assessment - Evaluation Sepsis screening result: No Definite Risk Hospital Course Summary Disclaimer: The visit summary below is not to be considered part of the above Progress Note. Hospital Course: ASSESSMENT Dementia with behavioral changes Gait instability with frequent falls Chronic headaches Elevated TSH-she is on Synthroid but has been forgetting to take her medications at times Severe constipation Moderate aortic stenosis Mitral valve prolapse Coronary artery disease Anemia; History of borderline low B 12 Paroxysmal A. fib-off of anticoagulation because of fall risk HTN Asthma/COPD 05/12/17 Hospitalist consult Obtain BMP, CBC, UA. Headache is primary concern - last hospitalization head CT was negative for acute findings. She's on a variety of different analgesics for her headaches. Provide safe environment - hx of frequent falls. TSH was checked 05/06/17 - 10.2, though there were reports that she wasn't taking her Synthroid at home. This has been resumed. Vit B12 was 554 - start oral replacement. She's on Keflex 250 mg daily as a home med - in review of [facility] records, Dr. Garcia Rx Keflex daily, likely prophylactic for recurrent UTI. CM working on DC plans. Psych H&P reviewed - psych meds are continued at this point. 05/12/17 18:51 Pt remains labile. Will increase Depakote to 250mg PO BID 05/13/17 12:36 Continues to have some mood lability. Continue current care 05/14/17 Diana has nausea, diarrhea. Two others from [facility] have become ill with Norovirus. Will check BMP, CBC, and stool (GI Panel). Vital signs are stable; no hypotension or tachycardia. Afebrile. Prophylactic Keflex was discontinued - risks outweigh benefits. 05/15/17 11:22 Patient is in contact precautions given her Campylobacter and Escherichia coli stool infection. Given the ongoing, severe headache and nausea in patient with dementia with behavioral changes and at risk for previous unreported fall, will check head CT despite normal head CT on recent hospitalization.
--- NOTE | 2017-05-15 12:11 | CT Scan Report ---
EXAM: CT head/brain wo con LOCATION OF DICTATION: [place] HISTORY: severe headace, behavioral change COMPARISON: May 08, 2017 TECHNIQUE: Axial CT images through the head were performed without contrast. Iterative Reconstruction dose reducing technique was utilized. FINDINGS: The ventricles are of normal size, shape, and contour for the patient's age. Moderate deep/subcortical white matter disease likely secondary to chronic small vessel ischemia. The brainstem, cerebellum, and cerebral hemispheres otherwise have a normal morphology and CT attenuation. There is no evidence of midline displacement. No hemorrhage, signs of acute territorial stroke, mass effect, mass lesions, or edema is evident. The visualized portions of the skull base, midface, and calvarium demonstrate no abnormality. The paranasal sinuses are well aerated and free of significant disease. The tympanic and mastoid cavities appear normal. IMPRESSION: Moderate deep/subcortical white matter disease likely secondary to chronic small vessel ischemia without evidence for acute intracranial process or hemorrhage. .
[2017-05-15] MEDS ORDERED: PNEUMOCOCCAL 13 VACCINE 0.5ml INJECTION IM ONE (12:32)
--- NOTE | 2017-05-15 19:51 | Neuropsych Progress Note ---
[facility] Subjective Date: 05/15/17 - Sujective/Severity of Illness Medications: Al Hydroxide/Mg Hydroxide (Maalox Plus) 30 ml PO Q6H PRN PRN Reason: Indigestion Last Admin: 05/11/17 21:11 Dose: 30 ml Amiodarone HCl (Pacerone) 200 mg PO DAILY [facility] Last Admin: 05/15/17 08:50 Dose: 200 mg Bisacodyl (Dulcolax) 10 mg RECTALLY DAILY PRN PRN Reason: Constipation Last Admin: 05/12/17 10:38 Dose: 10 mg Carvedilol (Coreg) 3.125 mg PO BIDWM [facility] Last Admin: 05/15/17 17:08 Dose: 3.125 mg Cholecalciferol (Vit. D-3) 4,000 unit PO DAILY [facility] Last Admin: 05/15/17 08:51 Dose: 4,000 unit Cyanocobalamin (Vit. B-12) 500 mcg PO DAILY [facility] Last Admin: 05/15/17 08:51 Dose: 500 mcg Divalproex Sodium (Depakote) 250 mg PO BID [facility] Last Admin: 05/15/17 08:48 Dose: 250 mg Donepezil HCl (Aricept) 10 mg PO HS [facility] Last Admin: 05/13/17 20:16 Dose: 10 mg Ferrous Sulfate (Feosol) 324 mg PO WB [facility] Last Admin: 05/15/17 08:48 Dose: 324 mg Fludrocortisone Acetate (Florinef) 0.1 mg PO DAILY [facility] Last Admin: 05/15/17 08:49 Dose: 0.1 mg Gabapentin (Neurontin) 600 mg PO TID [facility] Last Admin: 05/15/17 17:08 Dose: 600 mg Haloperidol (Haldol) 0.5 mg PO Q6H PRN PRN Reason: Extreme agitation Haloperidol Lactate (Haldol) 0.5 mg IM Q6H PRN PRN Reason: Extreme agitation Ibuprofen (Motrin) 200 mg PO Q4H PRN PRN Reason: Pain Last Admin: 05/14/17 16:43 Dose: 200 mg Levothyroxine Sodium (Synthroid) 112 mcg PO ACB [facility] Last Admin: 05/15/17 06:11 Dose: 112 mcg Lisinopril (Prinivil) 5 mg PO DAILY [facility] Last Admin: 05/15/17 08:50 Dose: 5 mg Lorazepam (Ativan) 0.5 mg PO Q6H PRN PRN Reason: Extreme agitation Last Admin: 05/14/17 17:21 Dose: 0.5 mg Lorazepam (Ativan Inj) 0.5 mg IM Q6H PRN PRN Reason: Extreme agitation Melatonin (Melatonin) 3 mg PO HS PRN PRN Reason: Insomnia Last Admin: 05/14/17 21:37 Dose: 3 mg Memantine (Namenda) 10 mg PO BID [facility] Last Admin: 05/15/17 08:49 Dose: 10 mg Omeprazole (Prilosec) 20 mg PO ACB [facility] Last Admin: 05/14/17 08:08 Dose: 20 mg Oxycodone/Acetaminophen (Percocet 7.5/325) 1 tab PO Q4H PRN PRN Reason: Pain Last Admin: 05/15/17 17:08 Dose: 1 tab Polyethylene Glycol (Miralax) 17 gm PO DAILY [facility] Last Admin: 05/15/17 08:49 Dose: 17 gm Senna (Senna Lax) 8.6 mg PO DAILY [facility] Last Admin: 05/15/17 08:50 Dose: 8.6 mg Venlafaxine HCl (Effexor Xr) 75 mg PO WB [facility] Last Admin: 05/15/17 08:48 Dose: 75 mg Subjective: Pt seen and chart examined. Nursing reports pt is doing well. Sleeping well and has a good appetite. No behaviors noted. On face to face the pt is pleasant but confused. She is only oriented to self. She states she continues to have a AMANDA but she is smiling and has a bright affect. She reports tolerating her meds. Start Time: 17:15 Stop Time: 17:40 Mental Status Exam Vitals: Last Vital Signs Temp 98.2 F 05/15/17 16:00 Pulse 72 05/15/17 16:00 Resp 22 05/15/17 16:00 BP 121/76 05/15/17 16:00 Pulse Ox 96 05/15/17 16:00 Height: 1.65 m Weight: 90.2 kg - Mental Status Exam Muscle Strength/Tone: Weak Dressing: Casual Grooming: Fair Attitude: Guarded Motor Activity: Retardation Eye Contact: Fair Speech: Slowed Volume: Soft Rhythm: Appropriate Rhythm Orientation: Oriented to person, Oriented to place Mood: Neutral Rate of Thoughts: Delayed Thought Organization: [place] Associations: Flight of Ideas Abstract Reasoning: Poor abstract reasoning Thought Content: Normal Perception/Psychotic: Hx psychosis, not current Language: Naming Impaired Fund of Knowledge: Poor fund of knowledge Memory: Poor-immediate, Poor-recent Suicidal Ideation: None Homicidal Ideation: None Insight: Poor Judgement: Poor Impulse Control: Poor - Laboratory Result Diagrams: 05/15/17 06:16 05/15/17 06:16 Laboratory Results - last 24 hr 05/15/17 05/15/17 06:16 06:16 WBC 3.9 L D RBC 3.43 L Hgb 11.0 L Hct 34.0 L MCV 99.1 MCH 32.1 MCHC 32.4 RDW Std Deviation 49.0 Plt Count 195 MPV 9.9 Immature Gran % (Auto) 1.3 H Neut % (Auto) 36.1 Lymph % (Auto) 45.2 H [place] % (Auto) 15.3 H Eos % (Auto) 1.3 Baso % (Auto) 0.8 Neut # 1.4 L Lymph # 1.8 [place] # 0.6 Eos # 0.1 Baso # 0.0 Abs Immat Gran (auto) 0.05 H Turbidity < 20 Sodium 135 Potassium 4.5 Chloride 99 Carbon Dioxide 30 Anion Gap 6 BUN 14.0 Creatinine 0.7 GFR Calculation 80 BUN/Creatinine Ratio 20 Glucose 81 Calculated Osmolality 260 L Calcium 8.6 Icterus Index < 2 Specimen Hemolysis < 15 Assessment and Plan (1) Major neurocognitive disorder Problem details: with Behavioral Disturbance Current visit: Yes Status: Acute (2) MDD (major depressive disorder) Qualifiers: Major depression recurrence: recurrent Current visit: Yes Status: Acute Hospital Course Summary Disclaimer: The visit summary below is not to be considered part of the above Progress Note. Hospital Course: ASSESSMENT Dementia with behavioral changes Gait instability with frequent falls Chronic headaches Elevated TSH-she is on Synthroid but has been forgetting to take her medications at times Severe constipation Moderate aortic stenosis Mitral valve prolapse Coronary artery disease Anemia; History of borderline low B 12 Paroxysmal A. fib-off of anticoagulation because of fall risk HTN Asthma/COPD 05/12/17 Hospitalist consult Obtain BMP, CBC, UA. Headache is primary concern - last hospitalization head CT was negative for acute findings. She's on a variety of different analgesics for her headaches. Provide safe environment - hx of frequent falls. TSH was checked 05/06/17 - 10.2, though there were reports that she wasn't taking her Synthroid at home. This has been resumed. Vit B12 was 554 - start oral replacement. She's on Keflex 250 mg daily as a home med - in review of [facility] records, Dr. Garcia Rx Keflex daily, likely prophylactic for recurrent UTI. CM working on DC plans. Psych H&P reviewed - psych meds are continued at this point. 05/12/17 18:51 Pt remains labile. Will increase Depakote to 250mg PO BID 05/13/17 12:36 Continues to have some mood lability. Continue current care 05/14/17 Diana has nausea, diarrhea. Two others from [facility] have become ill with Norovirus. Will check BMP, CBC, and stool (GI Panel). Vital signs are stable; no hypotension or tachycardia. Afebrile. Prophylactic Keflex was discontinued - risks outweigh benefits. 05/15/17 11:22 Patient is in contact precautions given her Campylobacter and Escherichia coli stool infection. Given the ongoing, severe headache and nausea in patient with dementia with behavioral changes and at risk for previous unreported fall, will check head CT despite normal head CT on recent hospitalization. 05/15/17 19:50 Pt improving. Continue current care
[2017-05-15] MEDS: MELATONIN 1 MG TABLET PO PRN (20:36)
[2017-05-16] MEDS: GABAPENTIN 600 MG TABLET PO SCH ×5 (00:31→20:39)
[2017-05-16] MEDS: MEMANTINE 10 MG TABLET PO SCH ×4 (00:31→20:38)
[2017-05-16] MEDS: DIVALPROEX 250 MG TABLET PO SCH ×4 (00:31→20:38)
[2017-05-16] MEDS: OXYCODONE/APAP 7.5 MG/325 MG TABLET PO PRN ×4 (03:33→19:22)
[2017-05-16] MEDS: LEVOTHYROXINE 112 MCG TABLET PO SCH (05:56)
[2017-05-16] MEDS: OMEPRAZOLE 20 MG CAPSULE PO SCH (05:56)
[2017-05-16] MEDS: IBUPROFEN 200 MG TABLET PO PRN (06:35)
[2017-05-16] MEDS: Venlaflaxine XR 75 MG CAPSULE (24hr) PO SCH (09:10)
[2017-05-16] MEDS: FERROUS SULFATE 324 MG TABLET PO SCH (09:11)
[2017-05-16] MEDS: FLUDROCORTISONE 0.1 MG TABLET PO SCH (09:11)
[2017-05-16] MEDS: AMIODARONE 200 MG TABLET PO SCH (09:12)
[2017-05-16] MEDS: CYANOCOBALAMIN (B-12) 500mcg TABLET PO SCH (09:12)
[2017-05-16] MEDS: CARVEDILOL 3.125 MG TABLET PO SCH ×2 (09:13→17:07)
[2017-05-16] MEDS: LISINOPRIL 5 MG TABLET PO SCH (09:13)
--- NOTE | 2017-05-16 10:15 | Progress Note ---
Subjective: Patient is seen in her room sitting up eating breakfast. She reports she is not doing well. When asked what is wrong she points to her chest and abdomen and says "it's not good." She states she continues to have a headache. We reviewed that her CT scan of her head was negative. She reports she has a good appetite. She denies diarrhea, vomiting, chest pain and shortness of breath. Nurses have no current concerns. Objective Vital signs: Temperature 97.7 F 05/16/17 09:15 Pulse Rate 81 05/16/17 09:15 Respiratory Rate 18 05/16/17 09:15 Blood Pressure 126/87 05/16/17 09:15 Pulse Oximetry 96 05/16/17 09:15 - Constitutional Present: no acute distress, well nourished, well developed - Routine Respiratory Exam Present: CTA bilaterally. Absent: wheezes - Routine Cardiovascular Exam Present: murmur, irregularly irregular - Routine Abdominal Exam Present: soft, normoactive bowel sounds, non distended. Absent: tenderness - Routine Extremities Exam Present: no edema, normal capillary refill - Routine Skin Exam Present: dry, warm - Routine Neurological Exam Present: alert - Routine Lymphatic Exam Lymphatic: Absent: adenopathy - Routine Psychiatric Exam Present: normal affect Results - Labs CBC & Chem 7: 05/15/17 06:16 05/15/17 06:16 - Imaging and Cardiology CT scan - head Additional comments: Type of Exam(s): CT head/brain wo con Reason for Exam(s): severe headace, behavioral change EXAM: CT head/brain wo con LOCATION OF DICTATION: [place] HISTORY: severe headace, behavioral change COMPARISON: May 08, 2017 TECHNIQUE: Axial CT images through the head were performed without contrast. Iterative Reconstruction dose reducing technique was utilized. FINDINGS: The ventricles are of normal size, shape, and contour for the patient's age. Moderate deep/subcortical white matter disease likely secondary to chronic small vessel ischemia. The brainstem, cerebellum, and cerebral hemispheres otherwise have a normal morphology and CT attenuation. There is no evidence of midline displacement. No hemorrhage, signs of acute territorial stroke, mass effect, mass lesions, or edema is evident. The visualized portions of the skull base, midface, and calvarium demonstrate no abnormality. The paranasal sinuses are well aerated and free of significant disease. The tympanic and mastoid cavities appear normal. IMPRESSION: Moderate deep/subcortical white matter disease likely secondary to chronic small vessel ischemia without evidence for acute intracranial process or hemorrhage. . Assessment and Plan (1) Major neurocognitive disorder Problem details: with Behavioral Disturbance Current visit: Yes Status: Acute Assessment and Plan: ASSESSMENT Campylobacter and enteropathic Escherichia coli stool infection Dementia with behavioral changes Gait instability with frequent falls Chronic headaches Elevated TSH-she is on Synthroid but has been forgetting to take her medications at times Severe constipation Moderate aortic stenosis Mitral valve prolapse Coronary artery disease Anemia; History of borderline low B 12 Paroxysmal A. fib-off of anticoagulation because of fall risk HTN Asthma/COPD Prophylactic Keflex daily for recurrent UTI - discontinued PLAN She had a temp of 100.5 last evening, but all other temperatures have been normal. Other vital signs stable. No change in care at this time. Sepsis Assessment - Evaluation Sepsis screening result: No Definite Risk Hospital Course Summary Disclaimer: The visit summary below is not to be considered part of the above Progress Note. Hospital Course: ASSESSMENT Dementia with behavioral changes Gait instability with frequent falls Chronic headaches Elevated TSH-she is on Synthroid but has been forgetting to take her medications at times Severe constipation Moderate aortic stenosis Mitral valve prolapse Coronary artery disease Anemia; History of borderline low B 12 Paroxysmal A. fib-off of anticoagulation because of fall risk HTN Asthma/COPD 05/12/17 Hospitalist consult Obtain BMP, CBC, UA. Headache is primary concern - last hospitalization head CT was negative for acute findings. She's on a variety of different analgesics for her headaches. Provide safe environment - hx of frequent falls. TSH was checked 05/06/17 - 10.2, though there were reports that she wasn't taking her Synthroid at home. This has been resumed. Vit B12 was 554 - start oral replacement. She's on Keflex 250 mg daily as a home med - in review of [facility] records, Dr. Garcia Rx Keflex daily, likely prophylactic for recurrent UTI. CM working on DC plans. Psych H&P reviewed - psych meds are continued at this point. 05/12/17 18:51 Pt remains labile. Will increase Depakote to 250mg PO BID 05/13/17 12:36 Continues to have some mood lability. Continue current care 05/14/17 Diana has nausea, diarrhea. Two others from [facility] have become ill with Norovirus. Will check BMP, CBC, and stool (GI Panel). Vital signs are stable; no hypotension or tachycardia. Afebrile. Prophylactic Keflex was discontinued - risks outweigh benefits. 05/15/17 11:22 Patient is in contact precautions given her Campylobacter and Escherichia coli stool infection. Given the ongoing, severe headache and nausea in patient with dementia with behavioral changes and at risk for previous unreported fall, will check head CT despite normal head CT on recent hospitalization. 05/15/17 Pt improving. Continue current care 05/16/17 She had a temp of 100.5 last evening, but all other temperatures have been normal. Other vital signs stable. No change in care at this time.
[2017-05-16] MEDS: LORazepam 0.5 MG TABLET PO PRN (19:22)
[2017-05-16] MEDS: MELATONIN 1 MG TABLET PO PRN (19:25)
--- NOTE | 2017-05-16 19:30 | Neuropsych Progress Note ---
[facility] Subjective Date: 05/16/17 - Sujective/Severity of Illness Medications: Al Hydroxide/Mg Hydroxide (Maalox Plus) 30 ml PO Q6H PRN PRN Reason: Indigestion Last Admin: 05/11/17 21:11 Dose: 30 ml Amiodarone HCl (Pacerone) 200 mg PO DAILY [facility] Last Admin: 05/16/17 09:12 Dose: 200 mg Bisacodyl (Dulcolax) 10 mg RECTALLY DAILY PRN PRN Reason: Constipation Last Admin: 05/12/17 10:38 Dose: 10 mg Carvedilol (Coreg) 3.125 mg PO BIDWM [facility] Last Admin: 05/16/17 17:07 Dose: 3.125 mg Cholecalciferol (Vit. D-3) 4,000 unit PO DAILY [facility] Last Admin: 05/16/17 09:12 Dose: 4,000 unit Cyanocobalamin (Vit. B-12) 500 mcg PO DAILY [facility] Last Admin: 05/16/17 09:12 Dose: 500 mcg Divalproex Sodium (Depakote) 250 mg PO BID [facility] Last Admin: 05/16/17 19:23 Dose: 250 mg Donepezil HCl (Aricept) 10 mg PO HS [facility] Last Admin: 05/13/17 20:16 Dose: 10 mg Ferrous Sulfate (Feosol) 324 mg PO WB [facility] Last Admin: 05/16/17 09:11 Dose: 324 mg Fludrocortisone Acetate (Florinef) 0.1 mg PO DAILY [facility] Last Admin: 05/16/17 09:11 Dose: 0.1 mg Gabapentin (Neurontin) 600 mg PO TID [facility] Last Admin: 05/16/17 19:22 Dose: 600 mg Haloperidol (Haldol) 0.5 mg PO Q6H PRN PRN Reason: Extreme agitation Haloperidol Lactate (Haldol) 0.5 mg IM Q6H PRN PRN Reason: Extreme agitation Ibuprofen (Motrin) 200 mg PO Q4H PRN PRN Reason: Pain Last Admin: 05/16/17 06:35 Dose: 200 mg Levothyroxine Sodium (Synthroid) 112 mcg PO ACB [facility] Last Admin: 05/16/17 05:56 Dose: 112 mcg Lisinopril (Prinivil) 5 mg PO DAILY [facility] Last Admin: 05/16/17 09:13 Dose: 5 mg Lorazepam (Ativan) 0.5 mg PO Q6H PRN PRN Reason: Extreme agitation Last Admin: 05/16/17 19:22 Dose: 0.5 mg Lorazepam (Ativan Inj) 0.5 mg IM Q6H PRN PRN Reason: Extreme agitation Melatonin (Melatonin) 3 mg PO HS PRN PRN Reason: Insomnia Last Admin: 05/16/17 19:25 Dose: 3 mg Memantine (Namenda) 10 mg PO BID [facility] Last Admin: 05/16/17 19:23 Dose: 10 mg Omeprazole (Prilosec) 20 mg PO ACB [facility] Last Admin: 05/16/17 05:56 Dose: 20 mg Oxycodone/Acetaminophen (Percocet 7.5/325) 1 tab PO Q4H PRN PRN Reason: Pain Last Admin: 05/16/17 19:22 Dose: 1 tab Polyethylene Glycol (Miralax) 17 gm PO DAILY [facility] Last Admin: 05/15/17 08:49 Dose: 17 gm Senna (Senna Lax) 8.6 mg PO DAILY [facility] Last Admin: 05/15/17 08:50 Dose: 8.6 mg Venlafaxine HCl (Effexor Xr) 75 mg PO WB [facility] Last Admin: 05/16/17 09:10 Dose: 75 mg Subjective: Pt seen and chart examined. Nursing reports pt is doing well. Sleeping well and has a good appetite. No behaviors noted. On face to face the pt is pleasant but confused. She is smiling more. She still is concerned about a AMANDA but it is improved. Tolerating meds Start Time: 17:30 Stop Time: 17:45 Mental Status Exam Vitals: Last Vital Signs Temp 99.6 F 05/16/17 16:12 Pulse 72 05/16/17 17:17 Resp 16 05/16/17 16:12 BP 124/79 05/16/17 17:17 Pulse Ox 92 05/16/17 16:12 Height: 1.65 m Weight: 90.2 kg - Mental Status Exam Muscle Strength/Tone: Weak Dressing: Casual Grooming: Fair Attitude: Guarded Motor Activity: Retardation Eye Contact: Fair Speech: Slowed Volume: Soft Rhythm: Appropriate Rhythm Orientation: Oriented to person, Oriented to place Mood: Neutral Rate of Thoughts: Delayed Thought Organization: [place] Associations: Flight of Ideas Abstract Reasoning: Poor abstract reasoning Thought Content: Normal Perception/Psychotic: Hx psychosis, not current Language: Naming Impaired Fund of Knowledge: Poor fund of knowledge Memory: Poor-immediate, Poor-recent Suicidal Ideation: None Homicidal Ideation: None Insight: Poor Judgement: Poor Impulse Control: Poor - Laboratory Result Diagrams: 05/15/17 06:16 05/15/17 06:16 Laboratory Results - last 24 hr 05/15/17 06:16 ESR 7 Assessment and Plan (1) Major neurocognitive disorder Problem details: with Behavioral Disturbance Current visit: Yes Status: Acute (2) MDD (major depressive disorder) Qualifiers: Major depression recurrence: recurrent Current visit: Yes Status: Acute Hospital Course Summary Disclaimer: The visit summary below is not to be considered part of the above Progress Note. Hospital Course: ASSESSMENT Dementia with behavioral changes Gait instability with frequent falls Chronic headaches Elevated TSH-she is on Synthroid but has been forgetting to take her medications at times Severe constipation Moderate aortic stenosis Mitral valve prolapse Coronary artery disease Anemia; History of borderline low B 12 Paroxysmal A. fib-off of anticoagulation because of fall risk HTN Asthma/COPD 05/12/17 Hospitalist consult Obtain BMP, CBC, UA. Headache is primary concern - last hospitalization head CT was negative for acute findings. She's on a variety of different analgesics for her headaches. Provide safe environment - hx of frequent falls. TSH was checked 05/06/17 - 10.2, though there were reports that she wasn't taking her Synthroid at home. This has been resumed. Vit B12 was 554 - start oral replacement. She's on Keflex 250 mg daily as a home med - in review of [facility] records, Dr. Garcia Rx Keflex daily, likely prophylactic for recurrent UTI. CM working on DC plans. Psych H&P reviewed - psych meds are continued at this point. 05/12/17 18:51 Pt remains labile. Will increase Depakote to 250mg PO BID 05/13/17 12:36 Continues to have some mood lability. Continue current care 05/14/17 Diana has nausea, diarrhea. Two others from [facility] have become ill with Norovirus. Will check BMP, CBC, and stool (GI Panel). Vital signs are stable; no hypotension or tachycardia. Afebrile. Prophylactic Keflex was discontinued - risks outweigh benefits. 05/15/17 11:22 Patient is in contact precautions given her Campylobacter and Escherichia coli stool infection. Given the ongoing, severe headache and nausea in patient with dementia with behavioral changes and at risk for previous unreported fall, will check head CT despite normal head CT on recent hospitalization. 05/15/17 Pt improving. Continue current care 05/16/17 She had a temp of 100.5 last evening, but all other temperatures have been normal. Other vital signs stable. No change in care at this time. 05/16/17 19:29 Pt doing well. Will change Effexor to regular version due to concerns from family for absorption issues
[2017-05-16] MEDS: DONEPEZIL 10 MG TABLET PO SCH (20:37)
[2017-05-17] MEDS: OXYCODONE/APAP 7.5 MG/325 MG TABLET PO PRN ×3 (00:26→19:43)
[2017-05-17] MEDS: LEVOTHYROXINE 112 MCG TABLET PO SCH (05:48)
[2017-05-17] MEDS: OMEPRAZOLE 20 MG CAPSULE PO SCH (05:48)
--- NOTE | 2017-05-17 08:05 | Progress Note ---
Progress Note: Recent dx of campylobacter/EPEC in stool not requiring any treatment. Nurses notes, psych notes, vital signs, I&O's reviewed. Patient doing well. No concerns at this time. Continue current treatment.
[2017-05-17] MEDS: CARVEDILOL 3.125 MG TABLET PO SCH ×2 (09:02→17:40)
[2017-05-17] MEDS: FERROUS SULFATE 324 MG TABLET PO SCH (09:02)
[2017-05-17] MEDS: GABAPENTIN 600 MG TABLET PO SCH ×3 (09:03→19:53)
[2017-05-17] MEDS: MEMANTINE 10 MG TABLET PO SCH ×2 (09:03→19:53)
[2017-05-17] MEDS: AMIODARONE 200 MG TABLET PO SCH (09:03)
[2017-05-17] MEDS: LISINOPRIL 5 MG TABLET PO SCH (09:03)
[2017-05-17] MEDS: DIVALPROEX 250 MG TABLET PO SCH ×2 (09:03→19:53)
[2017-05-17] MEDS: FLUDROCORTISONE 0.1 MG TABLET PO SCH (09:03)
[2017-05-17] MEDS: CYANOCOBALAMIN (B-12) 500mcg TABLET PO SCH (09:03)
[2017-05-17] MEDS: VENLAFAXINE 75 MG TABLET PO SCH ×2 (09:08→17:40)
[2017-05-17] MEDS: IBUPROFEN 200 MG TABLET PO PRN (09:12)
--- NOTE | 2017-05-17 19:47 | Neuropsych Progress Note ---
[facility] Subjective Date: 05/17/17 - Sujective/Severity of Illness Medications: Al Hydroxide/Mg Hydroxide (Maalox Plus) 30 ml PO Q6H PRN PRN Reason: Indigestion Last Admin: 05/11/17 21:11 Dose: 30 ml Amiodarone HCl (Pacerone) 200 mg PO DAILY [facility] Last Admin: 05/17/17 09:03 Dose: 200 mg Bisacodyl (Dulcolax) 10 mg RECTALLY DAILY PRN PRN Reason: Constipation Last Admin: 05/12/17 10:38 Dose: 10 mg Carvedilol (Coreg) 3.125 mg PO BIDWM [facility] Last Admin: 05/17/17 17:40 Dose: 3.125 mg Cholecalciferol (Vit. D-3) 4,000 unit PO DAILY [facility] Last Admin: 05/17/17 09:04 Dose: 4,000 unit Cyanocobalamin (Vit. B-12) 500 mcg PO DAILY [facility] Last Admin: 05/17/17 09:03 Dose: 500 mcg Divalproex Sodium (Depakote) 250 mg PO BID [facility] Last Admin: 05/17/17 09:03 Dose: 250 mg Donepezil HCl (Aricept) 10 mg PO HS [facility] Last Admin: 05/16/17 20:37 Dose: 10 mg Ferrous Sulfate (Feosol) 324 mg PO WB [facility] Last Admin: 05/17/17 09:02 Dose: 324 mg Fludrocortisone Acetate (Florinef) 0.1 mg PO DAILY [facility] Last Admin: 05/17/17 09:03 Dose: 0.1 mg Gabapentin (Neurontin) 600 mg PO TID [facility] Last Admin: 05/17/17 16:30 Dose: 600 mg Haloperidol (Haldol) 0.5 mg PO Q6H PRN PRN Reason: Extreme agitation Haloperidol Lactate (Haldol) 0.5 mg IM Q6H PRN PRN Reason: Extreme agitation Ibuprofen (Motrin) 200 mg PO Q4H PRN PRN Reason: Pain Last Admin: 05/17/17 09:12 Dose: 200 mg Levothyroxine Sodium (Synthroid) 112 mcg PO ACB [facility] Last Admin: 05/17/17 05:48 Dose: 112 mcg Lisinopril (Prinivil) 5 mg PO DAILY [facility] Last Admin: 05/17/17 09:03 Dose: 5 mg Lorazepam (Ativan) 0.5 mg PO Q6H PRN PRN Reason: Extreme agitation Last Admin: 05/16/17 19:22 Dose: 0.5 mg Lorazepam (Ativan Inj) 0.5 mg IM Q6H PRN PRN Reason: Extreme agitation Melatonin (Melatonin) 3 mg PO HS PRN PRN Reason: Insomnia Last Admin: 05/16/17 19:25 Dose: 3 mg Memantine (Namenda) 10 mg PO BID [facility] Last Admin: 05/17/17 09:03 Dose: 10 mg Omeprazole (Prilosec) 20 mg PO ACB [facility] Last Admin: 05/17/17 05:48 Dose: 20 mg Oxycodone/Acetaminophen (Percocet 7.5/325) 1 tab PO Q4H PRN PRN Reason: Pain Last Admin: 05/17/17 12:31 Dose: 1 tab Polyethylene Glycol (Miralax) 17 gm PO DAILY [facility] Last Admin: 05/15/17 08:49 Dose: 17 gm Senna (Senna Lax) 8.6 mg PO DAILY [facility] Last Admin: 05/15/17 08:50 Dose: 8.6 mg Venlafaxine HCl (Effexor) 75 mg PO BIDWM [facility] Last Admin: 05/17/17 17:40 Dose: 75 mg Subjective: PPatient seen and chart reviewed. Case discussed with treatment team. On interview, patient is pleasant but perseverates on wanting to go outside throughout the interview (currently in isolation, on contact precautions until 48 hrs asymptomatic). She describes her mood as "bad" because of this but redirects easily. Patient denies any SI, HI or AVH. Patient denies any adverse side effects related to psychotropic medications. Nursing staff report patient has been frustrated with isolation and subsequently has used the call light frequently, but hasn't had any other significant behavioral difficulties on the unit. Patient slept 11 hours overnight. VSS. Patient is eating well. Psychotropic PRNs required in the past 24 hours: none. Start Time: 14:40 Stop Time: 15:00 Mental Status Exam Vitals: Last Vital Signs Temp 98.0 F 05/17/17 16:00 Pulse 71 05/17/17 16:00 Resp 18 05/17/17 16:00 BP 120/79 05/17/17 16:00 Pulse Ox 97 05/17/17 16:00 Height: 1.65 m Weight: 90.2 kg - Mental Status Exam Muscle Strength/Tone: Weak Dressing: Casual Grooming: Fair Attitude: Cooperative Motor Activity: Retardation Eye Contact: Fair Speech: Slowed Volume: Soft Rhythm: Appropriate Rhythm Orientation: Oriented to person, Oriented to place Mood: Other ("Mad" because she cannot go outside today, affect calm/stable) Rate of Thoughts: Delayed Thought Organization: [place] Associations: [place] [employer] Abstract Reasoning: Poor abstract reasoning Thought Content: Normal Perception/Psychotic: Hx psychosis, 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 Language: Naming Impaired Fund of Knowledge: Poor fund of knowledge Memory: Poor-immediate, Poor-recent Suicidal Ideation: None Homicidal Ideation: None Insight: Poor Judgement: Poor Impulse Control: Fair - Laboratory Result Diagrams: 05/15/17 06:16 05/15/17 06:16 Assessment and Plan (1) Major neurocognitive disorder Problem details: with Behavioral Disturbance Current visit: Yes Status: Acute (2) MDD (major depressive disorder) Qualifiers: Major depression recurrence: recurrent Current visit: Yes Status: Acute Hospital Course Summary Disclaimer: The visit summary below is not to be considered part of the above Progress Note. Hospital Course: ASSESSMENT Dementia with behavioral changes Gait instability with frequent falls Chronic headaches Elevated TSH-she is on Synthroid but has been forgetting to take her medications at times Severe constipation Moderate aortic stenosis Mitral valve prolapse Coronary artery disease Anemia; History of borderline low B 12 Paroxysmal A. fib-off of anticoagulation because of fall risk HTN Asthma/COPD 05/12/17 Hospitalist consult Obtain BMP, CBC, UA. Headache is primary concern - last hospitalization head CT was negative for acute findings. She's on a variety of different analgesics for her headaches. Provide safe environment - hx of frequent falls. TSH was checked 05/06/17 - 10.2, though there were reports that she wasn't taking her Synthroid at home. This has been resumed. Vit B12 was 554 - start oral replacement. She's on Keflex 250 mg daily as a home med - in review of [facility] [place] records, Dr. Garcia Rx Keflex daily, likely prophylactic for recurrent UTI. CM working on DC plans. Psych H&P reviewed - psych meds are continued at this point. 05/12/17 18:51 Pt remains labile. Will increase Depakote to 250mg PO BID 05/13/17 12:36 Continues to have some mood lability. Continue current care 05/14/17 Diana has nausea, diarrhea. Two others from [facility] have become ill with Norovirus. Will check BMP, CBC, and stool (GI Panel). Vital signs are stable; no hypotension or tachycardia. Afebrile. Prophylactic Keflex was discontinued - risks outweigh benefits. 05/15/17 11:22 Patient is in contact precautions given her Campylobacter and Escherichia coli stool infection. Given the ongoing, severe headache and nausea in patient with dementia with behavioral changes and at risk for previous unreported fall, will check head CT despite normal head CT on recent hospitalization. 05/15/17 Pt improving. Continue current care 05/16/17 She had a temp of 100.5 last evening, but all other temperatures have been normal. Other vital signs stable. No change in care at this time. 05/16/17 19:29 Pt doing well. Will change Effexor to regular version due to concerns from family for absorption issues 05/17/17 19:48 Continue Depakote and Effexor at current doses - patient seems to be doing well other than frustration at contact precautions d/t Campylobacter in stool. Continue to monitor WBCs, mood, behavior and response to treatment.
[2017-05-17] MEDS: DONEPEZIL 10 MG TABLET PO SCH (19:55)
[2017-05-17] MEDS: LORazepam 0.5 MG TABLET PO PRN (21:58)
[2017-05-18] MEDS: OXYCODONE/APAP 7.5 MG/325 MG TABLET PO PRN ×4 (01:09→18:21)
[2017-05-18] MEDS: DONEPEZIL 10 MG TABLET PO SCH ×2 (05:47→20:20)
[2017-05-18] MEDS: DIVALPROEX 250 MG TABLET PO SCH ×3 (05:47→20:21)
[2017-05-18] MEDS: GABAPENTIN 600 MG TABLET PO SCH ×4 (05:48→20:23)
[2017-05-18] MEDS: MEMANTINE 10 MG TABLET PO SCH ×3 (05:48→20:23)
[2017-05-18] MEDS: OMEPRAZOLE 20 MG CAPSULE PO SCH (05:54)
[2017-05-18] MEDS: LEVOTHYROXINE 112 MCG TABLET PO SCH (05:54)
[2017-05-18] MEDS: FERROUS SULFATE 324 MG TABLET PO SCH (08:59)
[2017-05-18] MEDS: FLUDROCORTISONE 0.1 MG TABLET PO SCH (08:59)
[2017-05-18] MEDS: CARVEDILOL 3.125 MG TABLET PO SCH ×2 (08:59→17:41)
[2017-05-18] MEDS: CYANOCOBALAMIN (B-12) 500mcg TABLET PO SCH (09:00)
[2017-05-18] MEDS: AMIODARONE 200 MG TABLET PO SCH (09:00)
[2017-05-18] MEDS: LISINOPRIL 5 MG TABLET PO SCH (09:00)
[2017-05-18] MEDS: IBUPROFEN 200 MG TABLET PO PRN ×2 (09:01→16:28)
[2017-05-18] MEDS: VENLAFAXINE 75 MG TABLET PO SCH ×2 (09:21→17:41)
--- NOTE | 2017-05-18 10:28 | Progress Note ---
Subjective: Patient is seen today in her room sitting in her chair. She continues to complain of headache. She denies chest pain, shortness of breath, or abdominal pain. Her last loose stool was 05/16/17 1:30 PM. She has remained afebrile for the past 48+ hours. No nursing concerns at this point. Objective Vital signs: Temperature 98.7 F 05/17/17 20:47 Pulse Rate 77 05/17/17 20:47 Respiratory Rate 18 05/17/17 20:47 Blood Pressure 109/65 05/17/17 20:47 Pulse Oximetry 95 05/17/17 20:47 - Constitutional Present: no acute distress, well nourished, well developed - Routine HEENT Exam Head: Present: normocephalic, atraumatic - Routine Respiratory Exam Present: CTA bilaterally. Absent: wheezes - Routine Cardiovascular Exam Present: murmur, irregularly irregular - Routine Abdominal Exam Present: soft, normoactive bowel sounds, non distended. Absent: tenderness - Routine Extremities Exam Present: no edema, non tender - Routine Neurological Exam Present: alert - Routine Psychiatric Exam Present: normal affect Results - Labs CBC & Chem 7: 05/15/17 06:16 05/15/17 06:16 Assessment and Plan (1) Major neurocognitive disorder Problem details: with Behavioral Disturbance Current visit: Yes Status: Acute Assessment and Plan: ASSESSMENT Campylobacter and enteropathic Escherichia coli stool infection Dementia with behavioral changes Gait instability with frequent falls Chronic headaches Elevated TSH-she is on Synthroid but has been forgetting to take her medications at times Severe constipation Moderate aortic stenosis Mitral valve prolapse Coronary artery disease Anemia; History of borderline low B 12 Paroxysmal A. fib-off of anticoagulation because of fall risk HTN Asthma/COPD Prophylactic Keflex daily for recurrent UTI - discontinued PLAN Contact precautions may be discontinued at 1:30 this afternoon assuming she has no further loose stools. She is requiring PRN Percocet, this is not new for her. She continues to complain of severe headache, without showing any signs of distress. Recent CT head was negative. Chart reviewed and discussed with nurse. Sepsis Assessment - Evaluation Sepsis screening result: No Definite Risk Hospital Course Summary Disclaimer: The visit summary below is not to be considered part of the above Progress Note. Hospital Course: ASSESSMENT Dementia with behavioral changes Gait instability with frequent falls Chronic headaches Elevated TSH-she is on Synthroid but has been forgetting to take her medications at times Severe constipation Moderate aortic stenosis Mitral valve prolapse Coronary artery disease Anemia; History of borderline low B 12 Paroxysmal A. fib-off of anticoagulation because of fall risk HTN Asthma/COPD 05/12/17 Hospitalist consult Obtain BMP, CBC, UA. Headache is primary concern - last hospitalization head CT was negative for acute findings. She's on a variety of different analgesics for her headaches. Provide safe environment - hx of frequent falls. TSH was checked 05/06/17 - 10.2, though there were reports that she wasn't taking her Synthroid at home. This has been resumed. Vit B12 was 554 - start oral replacement. She's on Keflex 250 mg daily as a home med - in review of [facility] records, Dr. Garcia Rx Keflex daily, likely prophylactic for recurrent UTI. CM working on DC plans. Psych H&P reviewed - psych meds are continued at this point. 05/12/17 18:51 Pt remains labile. Will increase Depakote to 250mg PO BID 05/13/17 12:36 Continues to have some mood lability. Continue current care 05/14/17 Diana has nausea, diarrhea. Two others from [facility] have become ill with Norovirus. Will check BMP, CBC, and stool (GI Panel). Vital signs are stable; no hypotension or tachycardia. Afebrile. Prophylactic Keflex was discontinued - risks outweigh benefits. 05/15/17 11:22 Patient is in contact precautions given her Campylobacter and Escherichia coli stool infection. Given the ongoing, severe headache and nausea in patient with dementia with behavioral changes and at risk for previous unreported fall, will check head CT despite normal head CT on recent hospitalization. 05/15/17 Pt improving. Continue current care 05/16/17 She had a temp of 100.5 last evening, but all other temperatures have been normal. Other vital signs stable. No change in care at this time. 05/16/17 19:29 Pt doing well. Will change Effexor to regular version due to concerns from family for absorption issues 05/17/17 19:48 Continue Depakote and Effexor at current doses - patient seems to be doing well other than frustration at contact precautions d/t Campylobacter in stool. Continue to monitor WBCs, mood, behavior and response to treatment. 05/18/17 10:34 Contact precautions may be discontinued at 1:30 this afternoon assuming she has no further loose stools. She is requiring PRN Percocet, this is not new for her. She continues to complain of severe headache, without showing any signs of distress. Recent CT head was negative. Labs in a.m.: CBC to monitor WBCs with patient being on Depakote, and BMP for recent diarrhea.
--- NOTE | 2017-05-18 18:11 | Neuropsych Progress Note ---
[facility] Subjective Date: 05/18/17 - Sujective/Severity of Illness Medications: Al Hydroxide/Mg Hydroxide (Maalox Plus) 30 ml PO Q6H PRN PRN Reason: Indigestion Last Admin: 05/11/17 21:11 Dose: 30 ml Amiodarone HCl (Pacerone) 200 mg PO DAILY [facility] Last Admin: 05/18/17 09:00 Dose: 200 mg Bisacodyl (Dulcolax) 10 mg RECTALLY DAILY PRN PRN Reason: Constipation Last Admin: 05/12/17 10:38 Dose: 10 mg Carvedilol (Coreg) 3.125 mg PO BIDWM [facility] Last Admin: 05/18/17 17:41 Dose: 3.125 mg Cholecalciferol (Vit. D-3) 4,000 unit PO DAILY [facility] Last Admin: 05/18/17 09:00 Dose: 4,000 unit Cyanocobalamin (Vit. B-12) 500 mcg PO DAILY [facility] Last Admin: 05/18/17 09:00 Dose: 500 mcg Divalproex Sodium (Depakote) 250 mg PO BID [facility] Last Admin: 05/18/17 08:59 Dose: 250 mg Donepezil HCl (Aricept) 10 mg PO HS [facility] Last Admin: 05/18/17 05:47 Dose: Not Given Ferrous Sulfate (Feosol) 324 mg PO WB [facility] Last Admin: 05/18/17 08:59 Dose: 324 mg Fludrocortisone Acetate (Florinef) 0.1 mg PO DAILY [facility] Last Admin: 05/18/17 08:59 Dose: 0.1 mg Gabapentin (Neurontin) 600 mg PO TID [facility] Last Admin: 05/18/17 16:27 Dose: 600 mg Haloperidol (Haldol) 0.5 mg PO Q6H PRN PRN Reason: Extreme agitation Haloperidol Lactate (Haldol) 0.5 mg IM Q6H PRN PRN Reason: Extreme agitation Ibuprofen (Motrin) 200 mg PO Q4H PRN PRN Reason: Pain Last Admin: 05/18/17 16:28 Dose: 200 mg Levothyroxine Sodium (Synthroid) 112 mcg PO ACB [facility] Last Admin: 05/18/17 05:54 Dose: 112 mcg Lisinopril (Prinivil) 5 mg PO DAILY [facility] Last Admin: 05/18/17 09:00 Dose: 5 mg Lorazepam (Ativan) 0.5 mg PO Q6H PRN PRN Reason: Extreme agitation Last Admin: 05/17/17 21:58 Dose: 0.5 mg Lorazepam (Ativan Inj) 0.5 mg IM Q6H PRN PRN Reason: Extreme agitation Melatonin (Melatonin) 3 mg PO HS PRN PRN Reason: Insomnia Last Admin: 05/16/17 19:25 Dose: 3 mg Memantine (Namenda) 10 mg PO BID [facility] Last Admin: 05/18/17 09:00 Dose: 10 mg Omeprazole (Prilosec) 20 mg PO ACB [facility] Last Admin: 05/18/17 05:54 Dose: 20 mg Oxycodone/Acetaminophen (Percocet 7.5/325) 1 tab PO Q4H PRN PRN Reason: Pain Last Admin: 05/18/17 12:07 Dose: 1 tab Polyethylene Glycol (Miralax) 17 gm PO DAILY [facility] Last Admin: 05/15/17 08:49 Dose: 17 gm Senna (Senna Lax) 8.6 mg PO DAILY [facility] Last Admin: 05/15/17 08:50 Dose: 8.6 mg Venlafaxine HCl (Effexor) 75 mg PO BIDWM [facility] Last Admin: 05/18/17 17:41 Dose: 75 mg Subjective: PPatient seen and chart reviewed. Case discussed with treatment team. On interview, patient is pleasant and cooperative, and describes her mood as "good." She is not perseverating on wanting to go outside as she was yesterday but she is now off of contact precautions/isolation as she has been asymptomatic for 48 hours. She did report feeling sad when her left but denies feeling depressed. Patient does complain of some nausea. Patient denies any SI, HI or AVH. Nursing staff report patient became agitated and refused to move from the wheelchair to her bed last night, requiring PRN Ativan at 2200. She has been cooperative so far today. Patient slept 7 hours overnight. VSS. Patient is eating well. Start Time: 14:00 Stop Time: 14:20 Mental Status Exam Vitals: Last Vital Signs Temp 98.7 F 05/18/17 16:00 Pulse 79 05/18/17 16:00 Resp 16 05/18/17 16:00 BP 120/65 05/18/17 16:00 Pulse Ox 96 05/18/17 16:00 Height: 1.65 m Weight: 90.2 kg - Mental Status Exam Muscle Strength/Tone: Weak Dressing: Casual Grooming: Fair Attitude: Cooperative Motor Activity: Retardation Eye Contact: Fair Speech: Slowed Volume: Soft Rhythm: Appropriate Rhythm Orientation: Oriented to person, Oriented to place Mood: Neutral (affect calm, stable today though became agitated last night requiring PRN) Rate of Thoughts: Delayed Thought Organization: [place] Associations: Illogical (at times) Abstract Reasoning: Poor abstract reasoning Thought Content: Normal Perception/Psychotic: Hx psychosis, not current Language: Naming Impaired Fund of Knowledge: Poor fund of knowledge Memory: Poor-immediate, Poor-recent Suicidal Ideation: None Homicidal Ideation: None Insight: Poor Judgement: Poor Impulse Control: Other (Limited) - Laboratory Result Diagrams: 05/15/17 06:16 05/15/17 06:16 Assessment and Plan (1) Major neurocognitive disorder Problem details: with Behavioral Disturbance Current visit: Yes Status: Acute (2) MDD (major depressive disorder) Qualifiers: Major depression recurrence: recurrent Current visit: Yes Status: Acute Hospital Course Summary Disclaimer: The visit summary below is not to be considered part of the above Progress Note. Hospital Course: ASSESSMENT Dementia with behavioral changes Gait instability with frequent falls Chronic headaches Elevated TSH-she is on Synthroid but has been forgetting to take her medications at times Severe constipation Moderate aortic stenosis Mitral valve prolapse Coronary artery disease Anemia; History of borderline low B 12 Paroxysmal A. fib-off of anticoagulation because of fall risk HTN Asthma/COPD 05/12/17 Hospitalist consult Obtain BMP, CBC, UA. Headache is primary concern - last hospitalization head CT was negative for acute findings. She's on a variety of different analgesics for her headaches. Provide safe environment - hx of frequent falls. TSH was checked 05/06/17 - 10.2, though there were reports that she wasn't taking her Synthroid at home. This has been resumed. Vit B12 was 554 - start oral replacement. She's on Keflex 250 mg daily as a home med - in review of [facility] [place] records, Dr. Garcia Rx Keflex daily, likely prophylactic for recurrent UTI. CM working on DC plans. Psych H&P reviewed - psych meds are continued at this point. 05/12/17 18:51 Pt remains labile. Will increase Depakote to 250mg PO BID 05/13/17 12:36 Continues to have some mood lability. Continue current care 05/14/17 Diana has nausea, diarrhea. Two others from [facility] have become ill with Norovirus. Will check BMP, CBC, and stool (GI Panel). Vital signs are stable; no hypotension or tachycardia. Afebrile. Prophylactic Keflex was discontinued - risks outweigh benefits. 05/15/17 11:22 Patient is in contact precautions given her Campylobacter and Escherichia coli stool infection. Given the ongoing, severe headache and nausea in patient with dementia with behavioral changes and at risk for previous unreported fall, will check head CT despite normal head CT on recent hospitalization. 05/15/17 Pt improving. Continue current care 05/16/17 She had a temp of 100.5 last evening, but all other temperatures have been normal. Other vital signs stable. No change in care at this time. 05/16/17 19:29 Pt doing well. Will change Effexor to regular version due to concerns from family for absorption issues 05/17/17 19:48 Continue Depakote and Effexor at current doses - patient seems to be doing well other than frustration at contact precautions d/t Campylobacter in stool. Continue to monitor WBCs, mood, behavior and response to treatment. 05/18/17 10:34 Contact precautions may be discontinued at 1:30 this afternoon assuming she has no further loose stools. She is requiring PRN Percocet, this is not new for her. She continues to complain of severe headache, without showing any signs of distress. Recent CT head was negative. Labs in a.m.: CBC to monitor WBCs with patient being on Depakote, and BMP for recent diarrhea. 05/18/17 18:12 Psych: Increase Effexor to 112.5mg PO q AM and 75mg PO q HS; continue current dose of Depakote. Labs in AM. Continue current care otherwise; monitor mood, behavior and response to treatment.
[2017-05-19] MEDS: OXYCODONE/APAP 7.5 MG/325 MG TABLET PO PRN (04:34)
[2017-05-19] MEDS: OMEPRAZOLE 20 MG CAPSULE PO SCH (05:44)
[2017-05-19] MEDS: LEVOTHYROXINE 112 MCG TABLET PO SCH (05:44)
[2017-05-19] MEDS: CARVEDILOL 3.125 MG TABLET PO SCH ×2 (08:55→17:18)
[2017-05-19] MEDS: VENLAFAXINE 75 MG TABLET PO SCH ×2 (08:55→17:17)
[2017-05-19] MEDS: FLUDROCORTISONE 0.1 MG TABLET PO SCH (08:56)
[2017-05-19] MEDS: DIVALPROEX 250 MG TABLET PO SCH ×2 (08:56→20:01)
[2017-05-19] MEDS: FERROUS SULFATE 324 MG TABLET PO SCH (08:56)
[2017-05-19] MEDS: GABAPENTIN 600 MG TABLET PO SCH ×3 (08:57→20:01)
[2017-05-19] MEDS: AMIODARONE 200 MG TABLET PO SCH (08:58)
[2017-05-19] MEDS: VENLAFAXINE 37.5 MG TABLET PO SCH (08:58)
[2017-05-19] MEDS: CYANOCOBALAMIN (B-12) 500mcg TABLET PO SCH (08:59)
[2017-05-19] MEDS: LISINOPRIL 5 MG TABLET PO SCH (08:59)
[2017-05-19] MEDS: MEMANTINE 10 MG TABLET PO SCH ×2 (09:02→20:01)
[2017-05-19] MEDS: DONEPEZIL 10 MG TABLET PO SCH (20:01)
[2017-05-19] MEDS: IBUPROFEN 200 MG TABLET PO PRN (20:01)
--- NOTE | 2017-05-19 20:10 | Neuropsych Progress Note ---
[facility] Subjective Date: 05/19/17 - Sujective/Severity of Illness Medications: Al Hydroxide/Mg Hydroxide (Maalox Plus) 30 ml PO Q6H PRN PRN Reason: Indigestion Last Admin: 05/11/17 21:11 Dose: 30 ml Amiodarone HCl (Pacerone) 200 mg PO DAILY [facility] Last Admin: 05/19/17 08:58 Dose: 200 mg Bisacodyl (Dulcolax) 10 mg RECTALLY DAILY PRN PRN Reason: Constipation Last Admin: 05/12/17 10:38 Dose: 10 mg Carvedilol (Coreg) 3.125 mg PO BIDWM [facility] Last Admin: 05/19/17 17:18 Dose: 3.125 mg Cholecalciferol (Vit. D-3) 4,000 unit PO DAILY [facility] Last Admin: 05/19/17 09:00 Dose: 4,000 unit Cyanocobalamin (Vit. B-12) 500 mcg PO DAILY [facility] Last Admin: 05/19/17 08:59 Dose: 500 mcg Divalproex Sodium (Depakote) 250 mg PO BID [facility] Last Admin: 05/19/17 20:01 Dose: 250 mg Donepezil HCl (Aricept) 10 mg PO HS [facility] Last Admin: 05/19/17 20:01 Dose: 10 mg Ferrous Sulfate (Feosol) 324 mg PO WB [facility] Last Admin: 05/19/17 08:56 Dose: 324 mg Fludrocortisone Acetate (Florinef) 0.1 mg PO DAILY [facility] Last Admin: 05/19/17 08:56 Dose: 0.1 mg Gabapentin (Neurontin) 600 mg PO TID [facility] Last Admin: 05/19/17 20:01 Dose: 600 mg Haloperidol (Haldol) 0.5 mg PO Q6H PRN PRN Reason: Extreme agitation Haloperidol Lactate (Haldol) 0.5 mg IM Q6H PRN PRN Reason: Extreme agitation Ibuprofen (Motrin) 200 mg PO Q4H PRN PRN Reason: Pain Last Admin: 05/19/17 20:01 Dose: 200 mg Levothyroxine Sodium (Synthroid) 112 mcg PO ACB [facility] Last Admin: 05/19/17 05:44 Dose: 112 mcg Lisinopril (Prinivil) 5 mg PO DAILY [facility] Last Admin: 05/19/17 08:59 Dose: 5 mg Lorazepam (Ativan) 0.5 mg PO Q6H PRN PRN Reason: Extreme agitation Last Admin: 05/17/17 21:58 Dose: 0.5 mg Lorazepam (Ativan Inj) 0.5 mg IM Q6H PRN PRN Reason: Extreme agitation Melatonin (Melatonin) 3 mg PO HS PRN PRN Reason: Insomnia Last Admin: 05/16/17 19:25 Dose: 3 mg Memantine (Namenda) 10 mg PO BID [facility] Last Admin: 05/19/17 20:01 Dose: 10 mg Omeprazole (Prilosec) 20 mg PO ACB [facility] Last Admin: 05/19/17 05:44 Dose: 20 mg Oxycodone/Acetaminophen (Percocet 7.5/325) 1 tab PO Q4H PRN PRN Reason: Pain Last Admin: 05/19/17 04:34 Dose: 1 tab Polyethylene Glycol (Miralax) 17 gm PO DAILY [facility] Last Admin: 05/15/17 08:49 Dose: 17 gm Senna (Senna Lax) 8.6 mg PO DAILY [facility] Last Admin: 05/15/17 08:50 Dose: 8.6 mg Venlafaxine HCl (Effexor) 75 mg PO BIDWM [facility] Last Admin: 05/19/17 17:17 Dose: 75 mg Venlafaxine HCl (Effexor) 37.5 mg PO DAILY [facility] Last Admin: 05/19/17 08:58 Dose: 37.5 mg Subjective: PPatient seen and chart reviewed. Case discussed with treatment team. On interview, patient is guarded and perhaps mildly paranoid. When asked about her mood, she repeatedly says she should feel happy, thankful, etc. but implies she is not feeling that way. When I query her further, she will not answer and says, "Why do I have to tell you how I feel?" She reports that she feels well physically today and denies any AE associated with psychotropic medications. Patient denies any SI, HI or AVH. Nursing staff report patient has been mildly anxious but less demanding. She is adherent with medications and has not had any significant behavioral difficulties on the unit. She participates in groups. Patient slept 8.75 hours overnight. VSS. Patient is eating well. Start Time: 16:00 Stop Time: 16:20 Mental Status Exam Vitals: Last Vital Signs Temp 97.6 F 05/19/17 16:23 Pulse 71 05/19/17 16:23 Resp 16 05/19/17 16:23 BP 129/76 05/19/17 16:23 Pulse Ox 94 05/19/17 16:23 Height: 1.65 m Weight: 89.2 kg - Mental Status Exam Muscle Strength/Tone: Normal Dressing: Casual Grooming: Fair Attitude: Guarded Motor Activity: Retardation Eye Contact: Fair Speech: Slowed Volume: Soft Rhythm: Appropriate Rhythm Orientation: Oriented to person, Oriented to place Mood: Anxious Affect: Anxious Rate of Thoughts: Delayed Thought Organization: [place] Associations: Illogical (at times) Abstract Reasoning: Poor abstract reasoning Thought Content: Paranoia (Mild) Perception/Psychotic: Hx psychosis, not current Language: Naming Impaired Fund of Knowledge: Poor fund of knowledge Memory: Poor-immediate, Poor-recent Suicidal Ideation: None Homicidal Ideation: None Insight: Poor Judgement: Poor Impulse Control: Other (Limited) - Laboratory Result Diagrams: 05/19/17 05:39 05/19/17 05:39 Laboratory Results - last 24 hr 05/19/17 05/19/17 05:39 05:39 WBC 4.0 L RBC 3.39 L Hgb 11.0 L Hct 34.0 L MCV 100.3 H MCH 32.4 MCHC 32.4 RDW Std Deviation 50.6 H Plt Count 188 MPV 10.1 Immature Gran % (Auto) 1.3 H Neut % (Auto) 43.3 Lymph % (Auto) 37.8 [place]erry % (Auto) 15.3 H Eos % (Auto) 1.8 Baso % (Auto) 0.5 Neut # 1.7 L Lymph # 1.5 Ferry # 0.6 Eos # 0.1 Baso # 0.0 Abs Immat Gran (auto) 0.05 H Turbidity < 20 Sodium 141 Potassium 4.3 Chloride 102 Carbon Dioxide 30 Anion Gap 9 BUN 16.0 Creatinine 0.6 L GFR Calculation 95 BUN/Creatinine Ratio 27 H Glucose 81 Calculated Osmolality 271 Calcium 8.6 Icterus Index < 2 Specimen Hemolysis < 15 Assessment and Plan (1) Major neurocognitive disorder Problem details: with Behavioral Disturbance Current visit: Yes Status: Acute (2) MDD (major depressive disorder) Qualifiers: Major depression recurrence: recurrent Current visit: Yes Status: Acute Hospital Course Summary Disclaimer: The visit summary below is not to be considered part of the above Progress Note. Hospital Course: ASSESSMENT Dementia with behavioral changes Gait instability with frequent falls Chronic headaches Elevated TSH-she is on Synthroid but has been forgetting to take her medications at times Severe constipation Moderate aortic stenosis Mitral valve prolapse Coronary artery disease Anemia; History of borderline low B 12 Paroxysmal A. fib-off of anticoagulation because of fall risk HTN Asthma/COPD 05/12/17 Hospitalist consult Obtain BMP, CBC, UA. Headache is primary concern - last hospitalization head CT was negative for acute findings. She's on a variety of different analgesics for her headaches. Provide safe environment - hx of frequent falls. TSH was checked 05/06/17 - 10.2, though there were reports that she wasn't taking her Synthroid at home. This has been resumed. Vit B12 was 554 - start oral replacement. She's on Keflex 250 mg daily as a home med - in review of [facility] records, Dr. Garcia Rx Keflex daily, likely prophylactic for recurrent UTI. CM working on DC plans. Psych H&P reviewed - psych meds are continued at this point. 05/12/17 18:51 Pt remains labile. Will increase Depakote to 250mg PO BID 05/13/17 12:36 Continues to have some mood lability. Continue current care 05/14/17 Diana has nausea, diarrhea. Two others from [facility] have become ill with Norovirus. Will check BMP, CBC, and stool (GI Panel). Vital signs are stable; no hypotension or tachycardia. Afebrile. Prophylactic Keflex was discontinued - risks outweigh benefits. 05/15/17 11:22 Patient is in contact precautions given her Campylobacter and Escherichia coli stool infection. Given the ongoing, severe headache and nausea in patient with dementia with behavioral changes and at risk for previous unreported fall, will check head CT despite normal head CT on recent hospitalization. 05/15/17 Pt improving. Continue current care 05/16/17 She had a temp of 100.5 last evening, but all other temperatures have been normal. Other vital signs stable. No change in care at this time. 05/16/17 19:29 Pt doing well. Will change Effexor to regular version due to concerns from family for absorption issues 05/17/17 19:48 Continue Depakote and Effexor at current doses - patient seems to be doing well other than frustration at contact precautions d/t Campylobacter in stool. Continue to monitor WBCs, mood, behavior and response to treatment. 05/18/17 10:34 Contact precautions may be discontinued at 1:30 this afternoon assuming she has no further loose stools. She is requiring PRN Percocet, this is not new for her. She continues to complain of severe headache, without showing any signs of distress. Recent CT head was negative. Labs in a.m.: CBC to monitor WBCs with patient being on Depakote, and BMP for recent diarrhea. 05/18/17 18:12 Psych: Increase Effexor to 112.5mg PO q AM and 75mg PO q HS; continue current dose of Depakote. Labs in AM. Continue current care otherwise; monitor mood, behavior and response to treatment. 05/19/17 20:12 Psych: Continue current doses of Effexor and Depakote, which patient seems to be tolerating well. Exhibiting some mild paranoia but is not as familiar with me as staff, and has not had any problematic behavior. Begin looking into discharge arrangements - patient will require SNU with OT/PT Speech Eval and Treat.
[2017-05-19] MEDS: MELATONIN 1 MG TABLET PO PRN (21:06)
[2017-05-20] MEDS: IBUPROFEN 200 MG TABLET PO PRN (03:37)
[2017-05-20] MEDS: OMEPRAZOLE 20 MG CAPSULE PO SCH (06:25)
[2017-05-20] MEDS: LEVOTHYROXINE 112 MCG TABLET PO SCH (06:25)
[2017-05-20] MEDS: OXYCODONE/APAP 7.5 MG/325 MG TABLET PO PRN ×2 (06:47→16:02)
[2017-05-20] MEDS: CARVEDILOL 3.125 MG TABLET PO SCH ×2 (08:24→17:28)
[2017-05-20] MEDS: AMIODARONE 200 MG TABLET PO SCH (08:25)
[2017-05-20] MEDS: MEMANTINE 10 MG TABLET PO SCH ×2 (08:25→20:18)
[2017-05-20] MEDS: GABAPENTIN 600 MG TABLET PO SCH ×3 (08:25→20:19)
[2017-05-20] MEDS: FLUDROCORTISONE 0.1 MG TABLET PO SCH (08:25)
[2017-05-20] MEDS: VENLAFAXINE 37.5 MG TABLET PO SCH (08:25)
[2017-05-20] MEDS: FERROUS SULFATE 324 MG TABLET PO SCH (08:25)
[2017-05-20] MEDS: VENLAFAXINE 75 MG TABLET PO SCH ×2 (08:25→17:28)
[2017-05-20] MEDS: DIVALPROEX 250 MG TABLET PO SCH ×2 (08:25→20:18)
[2017-05-20] MEDS: LISINOPRIL 5 MG TABLET PO SCH (08:26)
[2017-05-20] MEDS: CYANOCOBALAMIN (B-12) 500mcg TABLET PO SCH (08:26)
[2017-05-20] MEDS: DONEPEZIL 10 MG TABLET PO SCH (20:18)
[2017-05-20] MEDS: MELATONIN 1 MG TABLET PO PRN (20:31)
--- NOTE | 2017-05-20 20:45 | Neuropsych Progress Note ---
[facility] Subjective Date: 05/20/17 - Sujective/Severity of Illness Medications: Al Hydroxide/Mg Hydroxide (Maalox Plus) 30 ml PO Q6H PRN PRN Reason: Indigestion Last Admin: 05/11/17 21:11 Dose: 30 ml Amiodarone HCl (Pacerone) 200 mg PO DAILY [facility] Last Admin: 05/20/17 08:25 Dose: 200 mg Bisacodyl (Dulcolax) 10 mg RECTALLY DAILY PRN PRN Reason: Constipation Last Admin: 05/12/17 10:38 Dose: 10 mg Carvedilol (Coreg) 3.125 mg PO BIDWM [facility] Last Admin: 05/20/17 17:28 Dose: 3.125 mg Cholecalciferol (Vit. D-3) 4,000 unit PO DAILY [facility] Last Admin: 05/20/17 08:26 Dose: 4,000 unit Cyanocobalamin (Vit. B-12) 500 mcg PO DAILY [facility] Last Admin: 05/20/17 08:26 Dose: 500 mcg Divalproex Sodium (Depakote) 250 mg PO BID [facility] Last Admin: 05/20/17 20:18 Dose: 250 mg Donepezil HCl (Aricept) 10 mg PO HS [facility] Last Admin: 05/20/17 20:18 Dose: 10 mg Ferrous Sulfate (Feosol) 324 mg PO WB [facility] Last Admin: 05/20/17 08:25 Dose: 324 mg Fludrocortisone Acetate (Florinef) 0.1 mg PO DAILY [facility] Last Admin: 05/20/17 08:25 Dose: 0.1 mg Gabapentin (Neurontin) 600 mg PO TID [facility] Last Admin: 05/20/17 20:19 Dose: 600 mg Haloperidol (Haldol) 0.5 mg PO Q6H PRN PRN Reason: Extreme agitation Haloperidol Lactate (Haldol) 0.5 mg IM Q6H PRN PRN Reason: Extreme agitation Ibuprofen (Motrin) 200 mg PO Q4H PRN PRN Reason: Pain Last Admin: 05/20/17 03:37 Dose: 200 mg Levothyroxine Sodium (Synthroid) 112 mcg PO ACB [facility] Last Admin: 05/20/17 06:25 Dose: 112 mcg Lisinopril (Prinivil) 5 mg PO DAILY [facility] Last Admin: 05/20/17 08:26 Dose: 5 mg Lorazepam (Ativan) 0.5 mg PO Q6H PRN PRN Reason: Extreme agitation Last Admin: 05/17/17 21:58 Dose: 0.5 mg Lorazepam (Ativan Inj) 0.5 mg IM Q6H PRN PRN Reason: Extreme agitation Melatonin (Melatonin) 3 mg PO HS PRN PRN Reason: Insomnia Last Admin: 05/20/17 20:31 Dose: 3 mg Memantine (Namenda) 10 mg PO BID [facility] Last Admin: 05/20/17 20:18 Dose: 10 mg Omeprazole (Prilosec) 20 mg PO ACB [facility] Last Admin: 05/20/17 06:25 Dose: 20 mg Oxycodone/Acetaminophen (Percocet 7.5/325) 1 tab PO Q4H PRN PRN Reason: Pain Last Admin: 05/20/17 16:02 Dose: 1 tab Polyethylene Glycol (Miralax) 17 gm PO DAILY [facility] Last Admin: 05/15/17 08:49 Dose: 17 gm Senna (Senna Lax) 8.6 mg PO DAILY [facility] Last Admin: 05/15/17 08:50 Dose: 8.6 mg Venlafaxine HCl (Effexor) 75 mg PO BIDWM [facility] Last Admin: 05/20/17 17:28 Dose: 75 mg Venlafaxine HCl (Effexor) 37.5 mg PO DAILY [facility] Last Admin: 05/20/17 08:25 Dose: 37.5 mg Subjective: Patient seen and chart reviewed. Case discussed with treatment team. On interview, patient is very pleasant and cooperative, with brighter affect than previously. Her is visiting on the unit and she obviously very much enjoys spending time with him and does not appear anxious. She reports her mood is very good. She does complain of headache (PRN given) and left side pain - CXR pending. No signs of paranoia today. She denies any AE associated with psychotropic medications. Her also states he feels she is doing very well currently. Patient denies any SI, HI or AVH. Nursing staff report patient has been pleasant, cooperative, and has not been demanding. She is adherent with medications and has not had any significant behavioral difficulties on the unit. She participates in groups. Patient slept well overnight. VSS. Patient is eating well. Start Time: 11:00 Stop Time: 11:20 Mental Status Exam Vitals: Last Vital Signs Temp 97.7 F 05/20/17 16:55 Pulse 73 05/20/17 16:55 Resp 16 05/20/17 16:55 BP 137/71 05/20/17 16:55 Pulse Ox 96 05/20/17 16:55 Height: 1.65 m Weight: 89.2 kg - Mental Status Exam Muscle Strength/Tone: Normal Dressing: Casual Grooming: Fair Attitude: Cooperative Motor Activity: Retardation (baseline) Eye Contact: Good Speech: Slowed Volume: Soft Rhythm: Appropriate Rhythm Orientation: Disoriented to time, Disoriented to situation, Oriented to person, Oriented to place Mood: Euthymic Affect: Bright Rate of Thoughts: Delayed Thought Organization: [place] Associations: Intact Abstract Reasoning: Poor abstract reasoning Thought Content: Normal Perception/Psychotic: Hx psychosis, not current Language: Naming Impaired Fund of Knowledge: Marti aware current events, Poor fund of knowledge Memory: Poor-immediate, Poor-recent Suicidal Ideation: None Homicidal Ideation: None Insight: Limited Judgement: Limited Impulse Control: Fair - Laboratory Result Diagrams: 05/19/17 05:39 05/19/17 05:39 Assessment and Plan (1) Major neurocognitive disorder Problem details: with Behavioral Disturbance Current visit: Yes Status: Acute (2) MDD (major depressive disorder) Qualifiers: Major depression recurrence: recurrent Current visit: Yes Status: Acute Hospital Course Summary Disclaimer: The visit summary below is not to be considered part of the above Progress Note. Hospital Course: ASSESSMENT Dementia with behavioral changes Gait instability with frequent falls Chronic headaches Elevated TSH-she is on Synthroid but has been forgetting to take her medications at times Severe constipation Moderate aortic stenosis Mitral valve prolapse Coronary artery disease Anemia; History of borderline low B 12 Paroxysmal A. fib-off of anticoagulation because of fall risk HTN Asthma/COPD 05/12/17 Hospitalist consult Obtain BMP, CBC, UA. Headache is primary concern - last hospitalization head CT was negative for acute findings. She's on a variety of different analgesics for her headaches. Provide safe environment - hx of frequent falls. TSH was checked 05/06/17 - 10.2, though there were reports that she wasn't taking her Synthroid at home. This has been resumed. Vit B12 was 554 - start oral replacement. She's on Keflex 250 mg daily as a home med - in review of [facility] records, Dr. Garcia Rx Keflex daily, likely prophylactic for recurrent UTI. CM working on DC plans. Psych H&P reviewed - psych meds are continued at this point. 05/12/17 18:51 Pt remains labile. Will increase Depakote to 250mg PO BID 05/13/17 12:36 Continues to have some mood lability. Continue current care 05/14/17 Diana has nausea, diarrhea. Two others from [facility] have become ill with Norovirus. Will check BMP, CBC, and stool (GI Panel). Vital signs are stable; no hypotension or tachycardia. Afebrile. Prophylactic Keflex was discontinued - risks outweigh benefits. 05/15/17 11:22 Patient is in contact precautions given her Campylobacter and Escherichia coli stool infection. Given the ongoing, severe headache and nausea in patient with dementia with behavioral changes and at risk for previous unreported fall, will check head CT despite normal head CT on recent hospitalization. 05/15/17 Pt improving. Continue current care 05/16/17 She had a temp of 100.5 last evening, but all other temperatures have been normal. Other vital signs stable. No change in care at this time. 05/16/17 19:29 Pt doing well. Will change Effexor to regular version due to concerns from family for absorption issues 05/17/17 19:48 Continue Depakote and Effexor at current doses - patient seems to be doing well other than frustration at contact precautions d/t Campylobacter in stool. Continue to monitor WBCs, mood, behavior and response to treatment. 05/18/17 10:34 Contact precautions may be discontinued at 1:30 this afternoon assuming she has no further loose stools. She is requiring PRN Percocet, this is not new for her. She continues to complain of severe headache, without showing any signs of distress. Recent CT head was negative. Labs in a.m.: CBC to monitor WBCs with patient being on Depakote, and BMP for recent diarrhea. 05/18/17 18:12 Psych: Increase Effexor to 112.5mg PO q AM and 75mg PO q HS; continue current dose of Depakote. Labs in AM. Continue current care otherwise; monitor mood, behavior and response to treatment. 05/19/17 20:12 Psych: Continue current doses of Effexor and Depakote, which patient seems to be tolerating well. Exhibiting some mild paranoia but is not as familiar with me as staff, and has not had any problematic behavior. Begin looking into discharge arrangements - patient will require SNU with OT/PT Speech Eval and Treat. 05/20/17 20:44 Psych: Patient significantly improved and doing well on current medication regimen. Chest x-ray pending. SW to finalize discharge arrangements in conjunction with SNU.
[2017-05-21] MEDS: OXYCODONE/APAP 7.5 MG/325 MG TABLET PO PRN ×3 (03:00→20:17)
[2017-05-21] MEDS: OMEPRAZOLE 20 MG CAPSULE PO SCH (05:34)
[2017-05-21] MEDS: LEVOTHYROXINE 112 MCG TABLET PO SCH (05:34)
[2017-05-21] MEDS: VENLAFAXINE 75 MG TABLET PO SCH ×2 (08:22→17:14)
[2017-05-21] MEDS: FLUDROCORTISONE 0.1 MG TABLET PO SCH (08:22)
[2017-05-21] MEDS: DIVALPROEX 250 MG TABLET PO SCH ×2 (08:22→19:39)
[2017-05-21] MEDS: FERROUS SULFATE 324 MG TABLET PO SCH (08:22)
[2017-05-21] MEDS: VENLAFAXINE 37.5 MG TABLET PO SCH (08:22)
[2017-05-21] MEDS: CARVEDILOL 3.125 MG TABLET PO SCH (08:22)
[2017-05-21] MEDS: GABAPENTIN 600 MG TABLET PO SCH ×3 (08:23→19:38)
[2017-05-21] MEDS: MEMANTINE 10 MG TABLET PO SCH ×2 (08:23→19:39)
[2017-05-21] MEDS: AMIODARONE 200 MG TABLET PO SCH (08:23)
[2017-05-21] MEDS: LISINOPRIL 5 MG TABLET PO SCH (08:23)
[2017-05-21] MEDS: CYANOCOBALAMIN (B-12) 500mcg TABLET PO SCH (08:24)
--- NOTE | 2017-05-21 11:43 | XRay Report ---
Indication: left lateral rib pain PROCEDURE: XR chest 1V: Encounter: Initial Comparison: November 30, 2016 Findings: Linear scarring in the right mid lung is stable. Linear atelectasis has developed in the left midlung. Right PICC line and endotracheal tube have been removed. 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 Prior left pneumothorax has resolved. No pneumothorax seen currently. No lobar consolidation or pleural effusion. Heart size and mediastinal contours are stable. No acute displaced rib fracture seen. Impression: No acute cardiopulmonary disease. .
--- NOTE | 2017-05-21 15:39 | Progress Note ---
Subjective: Diana is seen today in follow up. She is up in chair, visiting with sister and family. She is very jovial, joking around. She does not report any pain or any concerns. Note of prior c/o chest wall pain yesterday, CXR is reviewed today. Chart reviewed for collateral information. Objective Vital signs: Temperature 97.2 F 05/21/17 08:00 Pulse Rate 69 05/21/17 08:00 Respiratory Rate 22 05/21/17 08:00 Blood Pressure 161/67 H 05/21/17 08:00 Pulse Oximetry 98 05/21/17 08:00 Height/Weight/BMI: Weight 89.2 kg Comments: EKG- 100% AV paced - Constitutional Present: no acute distress, obese, cooperative - Routine HEENT Exam Head: Present: normocephalic, atraumatic Eye: Present: EOMI, PERRL ENT: Present: mucous membranes moist - Routine Respiratory Exam Present: decreased breath sounds, CTA bilaterally, distant breath sounds. Absent: rales, rhonchi, wheezes - Routine Cardiovascular Exam Present: S1, S2, irregular rhythm - Routine Abdominal Exam Present: soft, normoactive bowel sounds, non distended, non tender - Routine Extremities Exam Present: edema (1+ LE edema bilaterally) - Routine Musculoskeletal Exam Musculoskeletal: Present: moving extremities well - Routine Skin Exam Present: intact, dry, warm - Routine Neurological Exam Present: alert, moving all extremities - Routine Psychiatric Exam Present: cooperative Results - Labs CBC & Chem 7: 05/19/17 05:39 05/19/17 05:39 - Echocardiogram Echocardiogram: Reviewed- 100% CREDIT VERIFIER - Imaging and Cardiology Chest x-ray Status: image reviewed by me Additional comments: No evidence of rib fx. Right linear atelectasis. Atelectasis +/- fluid overload. Assessment and Plan (1) Major neurocognitive disorder Problem details: with Behavioral Disturbance Current visit: Yes Status: Acute DVT Prophylaxis: other (N/A) GI Prophylaxis: other (omeprazole) Resuscitation Status: Full Code Assessment and Plan: ASSESSMENT Campylobacter and enteropathic Escherichia coli stool infection Dementia with behavioral changes Gait instability with frequent falls Chronic headaches Elevated TSH-she is on Synthroid but has been forgetting to take her medications at times Severe constipation Moderate aortic stenosis Mitral valve prolapse Coronary artery disease Anemia; History of borderline low B 12 Paroxysmal A. fib-off of anticoagulation because of fall risk HTN Asthma/COPD Prophylactic Keflex daily for recurrent UTI - discontinued HFpEF PLAN 05/21/17 *Diarrhea resolved. Reports eating well. *Concern yesterday for chest wall pain. Appears to have atelectasis and mild pulmonary edema. Add low dose Lasix and monitor. Chest discomfort may be due to fluid overload. Suspect hx of orthostasis- Florinef. Will mildly increase Coreg for HF. PPM in place for rate control. Decrease MYRON to 2.5mg PO Q HS- Can DC MYRON/ARB given pEF if needed. *Continue synthroid for hypothyroidism. *Chronic AMANDA- PRN percocet and motrin provide some relief. Increased risk of medication overuse AMANDA. Continue depakote- could consider increasing Depakote for AMANDA relief if indicated. Remains on Gabapentin TID. May need to decrease dose due to advanced age. Overall, feeling well. Continue to monitor. - Time spent with patient 25 - 35 minutes Sepsis Assessment - Evaluation Sepsis screening result: No Definite Risk Hospital Course Summary Disclaimer: The visit summary below is not to be considered part of the above Progress Note. Hospital Course: ASSESSMENT Dementia with behavioral changes Gait instability with frequent falls Chronic headaches Elevated TSH-she is on Synthroid but has been forgetting to take her medications at times Severe constipation Moderate aortic stenosis Mitral valve prolapse Coronary artery disease Anemia; History of borderline low B 12 Paroxysmal A. fib-off of anticoagulation because of fall risk HTN Asthma/COPD 05/12/17 Hospitalist consult Obtain BMP, CBC, UA. Headache is primary concern - last hospitalization head CT was negative for acute findings. She's on a variety of different analgesics for her headaches. Provide safe environment - hx of frequent falls. TSH was checked 05/06/17 - 10.2, though there were reports that she wasn't taking her Synthroid at home. This has been resumed. Vit B12 was 554 - start oral replacement. She's on Keflex 250 mg daily as a home med - in review of [facility] records, Dr. Garcia Rx Keflex daily, likely prophylactic for recurrent UTI. CM working on DC plans. Psych H&P reviewed - psych meds are continued at this point. 05/12/17 18:51 Pt remains labile. Will increase Depakote to 250mg PO BID 05/13/17 12:36 Continues to have some mood lability. Continue current care 05/14/17 Diana has nausea, diarrhea. Two others from [facility] have become ill with Norovirus. Will check BMP, CBC, and stool (GI Panel). Vital signs are stable; no hypotension or tachycardia. Afebrile. Prophylactic Keflex was discontinued - risks outweigh benefits. 05/15/17 11:22 Patient is in contact precautions given her Campylobacter and Escherichia coli stool infection. Given the ongoing, severe headache and nausea in patient with dementia with behavioral changes and at risk for previous unreported fall, will check head CT despite normal head CT on recent hospitalization. 05/15/17 Pt improving. Continue current care 05/16/17 She had a temp of 100.5 last evening, but all other temperatures have been normal. Other vital signs stable. No change in care at this time. 05/16/17 19:29 Pt doing well. Will change Effexor to regular version due to concerns from family for absorption issues 05/17/17 19:48 Continue Depakote and Effexor at current doses - patient seems to be doing well other than frustration at contact precautions d/t Campylobacter in stool. Continue to monitor WBCs, mood, behavior and response to treatment. 05/18/17 10:34 Contact precautions may be discontinued at 1:30 this afternoon assuming she has no further loose stools. She is requiring PRN Percocet, this is not new for her. She continues to complain of severe headache, without showing any signs of distress. Recent CT head was negative. Labs in a.m.: CBC to monitor WBCs with patient being on Depakote, and BMP for recent diarrhea. 05/18/17 18:12 Psych: Increase Effexor to 112.5mg PO q AM and 75mg PO q HS; continue current dose of Depakote. Labs in AM. Continue current care otherwise; monitor mood, behavior and response to treatment. 05/19/17 20:12 Psych: Continue current doses of Effexor and Depakote, which patient seems to be tolerating well. Exhibiting some mild paranoia but is not as familiar with me as staff, and has not had any problematic behavior. Begin looking into discharge arrangements - patient will require SNU with OT/PT Speech Eval and Treat. 05/20/17 20:44 Psych: Patient significantly improved and doing well on current medication regimen. Chest x-ray pending. SW to finalize discharge arrangements in conjunction with SNU. 05/21/17 15:46 05/21/17 *Diarrhea resolved. Reports eating well. *Concern yesterday for chest wall pain. Appears to have atelectasis and mild pulmonary edema. Add low dose Lasix and monitor. Chest discomfort may be due to fluid overload. Suspect hx of orthostasis- Florinef. Will mildly increase Coreg for HF. PPM in place for rate control. Decrease MYRON to 2.5mg PO Q HS- Can DC MYRON/ARB given pEF if needed. *Continue synthroid for hypothyroidism. *Chronic AMANDA- PRN percocet and motrin provide some relief. Increased risk of medication overuse AMANDA. Continue depakote- could consider increasing Depakote for AMANDA relief if indicated. Remains on Gabapentin TID. May need to decrease dose due to advanced age. Overall, feeling well. Continue to monitor.
[2017-05-21] MEDS: CARVEDILOL 6.25 MG TABLET PO SCH (17:13)
--- NOTE | 2017-05-21 19:09 | Neuropsych Progress Note ---
[facility] Subjective Date: 05/21/17 - Sujective/Severity of Illness Medications: Al Hydroxide/Mg Hydroxide (Maalox Plus) 30 ml PO Q6H PRN PRN Reason: Indigestion Last Admin: 05/11/17 21:11 Dose: 30 ml Amiodarone HCl (Pacerone) 200 mg PO DAILY [facility] Last Admin: 05/21/17 08:23 Dose: 200 mg Bisacodyl (Dulcolax) 10 mg RECTALLY DAILY PRN PRN Reason: Constipation Last Admin: 05/12/17 10:38 Dose: 10 mg Carvedilol (Coreg) 6.25 mg PO BIDWM [facility] Last Admin: 05/21/17 17:13 Dose: 6.25 mg Cholecalciferol (Vit. D-3) 4,000 unit PO DAILY [facility] Last Admin: 05/21/17 08:24 Dose: 4,000 unit Cyanocobalamin (Vit. B-12) 500 mcg PO DAILY [facility] Last Admin: 05/21/17 08:24 Dose: 500 mcg Divalproex Sodium (Depakote) 250 mg PO BID [facility] Last Admin: 05/21/17 08:22 Dose: 250 mg Donepezil HCl (Aricept) 10 mg PO HS [facility] Last Admin: 05/20/17 20:18 Dose: 10 mg Ferrous Sulfate (Feosol) 324 mg PO WB [facility] Last Admin: 05/21/17 08:22 Dose: 324 mg Fludrocortisone Acetate (Florinef) 0.1 mg PO DAILY [facility] Last Admin: 05/21/17 08:22 Dose: 0.1 mg Furosemide (Lasix) 20 mg PO DAILY [facility] Gabapentin (Neurontin) 600 mg PO TID [facility] Last Admin: 05/21/17 15:10 Dose: 600 mg Haloperidol (Haldol) 0.5 mg PO Q6H PRN PRN Reason: Extreme agitation Haloperidol Lactate (Haldol) 0.5 mg IM Q6H PRN PRN Reason: Extreme agitation Ibuprofen (Motrin) 200 mg PO Q4H PRN PRN Reason: Pain Last Admin: 05/20/17 03:37 Dose: 200 mg Levothyroxine Sodium (Synthroid) 112 mcg PO ACB [facility] Last Admin: 05/21/17 05:34 Dose: 112 mcg Lisinopril (Prinivil) 2.5 mg PO HS [facility] Lorazepam (Ativan) 0.5 mg PO Q6H PRN PRN Reason: Extreme agitation Last Admin: 05/17/17 21:58 Dose: 0.5 mg Lorazepam (Ativan Inj) 0.5 mg IM Q6H PRN PRN Reason: Extreme agitation Melatonin (Melatonin) 3 mg PO HS PRN PRN Reason: Insomnia Last Admin: 05/20/17 20:31 Dose: 3 mg Memantine (Namenda) 10 mg PO BID [facility] Last Admin: 05/21/17 08:23 Dose: 10 mg Omeprazole (Prilosec) 20 mg PO ACB [facility] Last Admin: 05/21/17 05:34 Dose: 20 mg Oxycodone/Acetaminophen (Percocet 7.5/325) 1 tab PO Q4H PRN PRN Reason: Pain Last Admin: 05/21/17 09:59 Dose: 1 tab Polyethylene Glycol (Miralax) 17 gm PO DAILY [facility] Last Admin: 05/15/17 08:49 Dose: 17 gm Senna (Senna Lax) 8.6 mg PO DAILY [facility] Last Admin: 05/15/17 08:50 Dose: 8.6 mg Venlafaxine HCl (Effexor) 75 mg PO BIDWM [facility] Last Admin: 05/21/17 17:14 Dose: 75 mg Venlafaxine HCl (Effexor) 37.5 mg PO DAILY [facility] Last Admin: 05/21/17 08:22 Dose: 37.5 mg Subjective: Patient seen and chart reviewed. Case discussed with treatment team. On interview, patient is very pleasant and cooperative, with bright affect. She very much enjoys speaking about her and their marriage of 60+ years. She reports her mood is very good. She does complain of headache (PRN given) and left side pain - see note from hospitalist after CXR yesterday. No signs of paranoia today. She denies any AE associated with psychotropic medications. Patient denies any SI, HI or AVH. Nursing staff report patient has been pleasant, cooperative, and has not been demanding. She is adherent with medications and has not had any significant behavioral difficulties on the unit. She participates in groups. Patient slept well overnight. VSS. Patient is eating well. Start Time: 10:00 Stop Time: 10:20 Mental Status Exam Vitals: Last Vital Signs Temp 97.4 F 05/21/17 16:00 Pulse 79 05/21/17 16:00 Resp 16 05/21/17 16:00 BP 137/86 05/21/17 16:00 Pulse Ox 95 05/21/17 16:00 Height: 1.65 m Weight: 89.2 kg - Mental Status Exam Muscle Strength/Tone: Normal Dressing: Casual Grooming: Fair Attitude: Cooperative Motor Activity: Retardation (baseline) Eye Contact: Good Speech: Slowed Volume: Soft Rhythm: Appropriate Rhythm Orientation: Disoriented to time, Disoriented to situation, Oriented to person, Oriented to place Mood: Euthymic Affect: Bright, Hostile Rate of Thoughts: Delayed Thought Organization: [place] Associations: Intact Abstract Reasoning: Poor abstract reasoning Thought Content: Somatic Concerns Perception/Psychotic: Hx psychosis, not current Language: Naming Impaired Fund of Knowledge: Marti aware current events, Poor fund of knowledge Memory: Poor-immediate, Poor-recent Suicidal Ideation: None Homicidal Ideation: None Insight: Limited Judgement: Limited Impulse Control: Good - Laboratory Result Diagrams: 05/19/17 05:39 05/19/17 05:39 Assessment and Plan (1) Major neurocognitive disorder Problem details: with Behavioral Disturbance Current visit: Yes Status: Acute (2) MDD (major depressive disorder) Qualifiers: Major depression recurrence: recurrent Current visit: Yes Status: Acute Hospital Course Summary Disclaimer: The visit summary below is not to be considered part of the above Progress Note. Hospital Course: ASSESSMENT Dementia with behavioral changes Gait instability with frequent falls Chronic headaches Elevated TSH-she is on Synthroid but has been forgetting to take her medications at times Severe constipation Moderate aortic stenosis Mitral valve prolapse Coronary artery disease Anemia; History of borderline low B 12 Paroxysmal A. fib-off of anticoagulation because of fall risk HTN Asthma/COPD 05/12/17 Hospitalist consult Obtain BMP, CBC, UA. Headache is primary concern - last hospitalization head CT was negative for acute findings. She's on a variety of different analgesics for her headaches. Provide safe environment - hx of frequent falls. TSH was checked 05/06/17 - 10.2, though there were reports that she wasn't taking her Synthroid at home. This has been resumed. Vit B12 was 554 - start oral replacement. She's on Keflex 250 mg daily as a home med [facility], likely prophylactic for recurrent UTI. CM working on DC plans. Psych H&P reviewed - psych meds are continued at this point. 05/12/17 18:51 Pt remains labile. Will increase Depakote to 250mg PO BID 05/13/17 12:36 Continues to have some mood lability. Continue current care 05/14/17 Diana has nausea, diarrhea. Two others from [facility] have become ill with Norovirus. Will check BMP, CBC, and stool (GI Panel). Vital signs are stable; no hypotension or tachycardia. Afebrile. Prophylactic Keflex was discontinued - risks outweigh benefits. 05/15/17 11:22 Patient is in contact precautions given her Campylobacter and Escherichia coli stool infection. Given the ongoing, severe headache and nausea in patient with dementia with behavioral changes and at risk for previous unreported fall, will check head CT despite normal head CT on recent hospitalization. 05/15/17 Pt improving. Continue current care 05/16/17 She had a temp of 100.5 last evening, but all other temperatures have been normal. Other vital signs stable. No change in care at this time. 05/16/17 19:29 Pt doing well. Will change Effexor to regular version due to concerns from family for absorption issues 05/17/17 19:48 Continue Depakote and Effexor at current doses - patient seems to be doing well other than frustration at contact precautions d/t Campylobacter in stool. Continue to monitor WBCs, mood, behavior and response to treatment. 05/18/17 10:34 Contact precautions may be discontinued at 1:30 this afternoon assuming she has no further loose stools. She is requiring PRN Percocet, this is not new for her. She continues to complain of severe headache, without showing any signs of distress. Recent CT head was negative. Labs in a.m.: CBC to monitor WBCs with patient being on Depakote, and BMP for recent diarrhea. 05/18/17 18:12 Psych: Increase Effexor to 112.5mg PO q AM and 75mg PO q HS; continue current dose of Depakote. Labs in AM. Continue current care otherwise; monitor mood, behavior and response to treatment. 05/19/17 20:12 Psych: Continue current doses of Effexor and Depakote, which patient seems to be tolerating well. Exhibiting some mild paranoia but is not as familiar with me as staff, and has not had any problematic behavior. Begin looking into discharge arrangements - patient will require SNU with OT/PT Speech Eval and Treat. 05/20/17 20:44 Psych: Patient significantly improved and doing well on current medication regimen. Chest x-ray pending. SW to finalize discharge arrangements in conjunction with SNU. 05/21/17 15:46 05/21/17 *Diarrhea resolved. Reports eating well. *Concern yesterday for chest wall pain. Appears to have atelectasis and mild pulmonary edema. Add low dose Lasix and monitor. Chest discomfort may be due to fluid overload. Suspect hx of orthostasis- Florinef. Will mildly increase Coreg for HF. PPM in place for rate control. Decrease MYRON to 2.5mg PO Q HS- Can DC MYRON/ARB given pEF if needed. *Continue synthroid for hypothyroidism. *Chronic AMANDA- PRN percocet and motrin provide some relief. Increased risk of medication overuse AMANDA. Continue depakote- could consider increasing Depakote for AMANDA relief if indicated. Remains on Gabapentin TID. May need to decrease dose due to advanced age. Overall, feeling well. Continue to monitor. 05/21/17 19:08 Psych: Patient doing well - continue planning for discharge to SNU on 05/22/17.
--- NOTE | 2017-05-21 19:17 | Discharge Instructions ---
Discharge Plan - Med Rec/Dispo Referrals/Follow Up: Benjamín Hameed MD [Family Provider] - (Dr. Naomi Hameed on 06/08/17 at 1:30 pm for Hosp. follow-up. [address] [place] [address] Patient will be seen on rounds at the facility for Mental Health follow-up. ) Additional Instructions: Discharge Diagnosis: Major neurocognitive disorder, vascular, behavioral disturbance resolved by time of discharge Major depressive disorder, recurrent, severe (improved by discharge) Reasons for Admission: Doesn't want to get out of bed, ADL's declining, and refuses to walk, even though she can. IN CASE OF PSYCHIATRIC EMERGENCY, CONTACT [facility] STAFF AT ( available 24 hrs daily). Prescriptions: No Action Omeprazole 20 mg PO ACB #0 cap Saccharomyces Boulardii [Florastor] 250 mg PO PRN #0 Carvedilol [Coreg] 3.125 mg PO BIDWM #0 tab Ferrous Sulfate 324 mg PO WB #0 tab Primidone [Mysoline] 50 mg PO TID #0 tab Gabapentin [Neurontin] 600 mg PO TID #0 tab Venlafaxine [Effexor] 75 mg PO TID Lisinopril [Prinivil] 5 mg PO DAILY CephALEXin [Keflex] 250 mg PO DAILY Cholecalciferol (Vitamin D3) [Vitamin D3] 4,000 unit PO DAILY Divalproex Sodium 125 mg PO BID Oxycodone/APAP 7.5/325 [Percocet 7.5/325] 1 tab PO Q4H PRN PRN Reason: Pain Turmeric Root Extract [Turmeric] 1,500 mg PO DAILY Ibuprofen 200 mg PO Q4H PRN PRN Reason: Pain Melatonin 3 mg PO HS PRN tablet PRN Reason: Insomnia Fludrocortisone [Florinef] 0.1 mg PO DAILY #0 tab Multivitamin [Multi-Day Vitamins] 1 tab PO BID #30 tab Sennosides [Senokot] 8.6 mg PO DAILY #0 tab Levothyroxine Sodium [Synthroid] 112 mcg PO ACB #0 tab Polyethylene Glycol 3350 [Miralax] 17 g PO DAILY #0 bottle Amiodarone [Pacerone] 200 mg PO DAILY #0 tab Meloxicam [Mobic] 7.5 mg PO DAILY #0 Memantine [Namenda] 10 mg PO BID Acetaminophen [Tylenol] 325 - 650 mg PO Q5H PRN tablet PRN Reason: Discomfort Donepezil [Aricept] 10 mg PO HS tablet - Disposition 03 To [facility] ([facility])
[2017-05-21] MEDS: IBUPROFEN 200 MG TABLET PO PRN (19:19)
--- NOTE | 2017-05-21 19:26 | Neuropsychiatric Disch Summary ---
Discharge Information Date of admission: 05/11/17 16:35 Anticipated date of discharge: 05/22/17 Attending Physician: Eufemia Brooks MD Primary care physician: Benjamín Hameed MD Consults: Hospitalist group for optimization of medical comorbidities - Discharge Diagnosis (1) Major neurocognitive disorder Status: Chronic Discharge Diagnosis: Vascular, behavioral disturbance resolved by time of discharge (2) MDD (major depressive disorder) Status: Acute Discharge Diagnosis: Recurrent, severe (improved by time of discharge) (3) Generalized weakness Status: Acute - Laboratory Labs: 05/19/17 05:39 05/19/17 05:39 - Radiology Radiology: Date of Exam: 05/15/17 Ordering Provider: Toya Kuhn Type of Exam(s): CT head/brain wo con Reason for Exam(s): severe headace, behavioral change EXAM: CT head/brain wo con LOCATION OF DICTATION: [facility] HISTORY: severe headace, behavioral change COMPARISON: May 08, 2017 TECHNIQUE: Axial CT images through the head were performed without contrast. Iterative Reconstruction dose reducing technique was utilized. FINDINGS: The ventricles are of normal size, shape, and contour for the patient's age. Moderate deep/subcortical white matter disease likely secondary to chronic small vessel ischemia. The brainstem, cerebellum, and cerebral hemispheres otherwise have a normal morphology and CT attenuation. There is no evidence of midline displacement. No hemorrhage, signs of acute territorial stroke, mass effect, mass lesions, or edema is evident. The visualized portions of the skull base, midface, and calvarium demonstrate no abnormality. The paranasal sinuses are well aerated and free of significant disease. The tympanic and mastoid cavities appear normal. IMPRESSION: Moderate deep/subcortical white matter disease likely secondary to chronic small vessel ischemia without evidence for acute intracranial process or hemorrhage. Date of Admission: 05/11/17 16:35 Chief complaint: Confusion, self-care failure History of Present Illness: HPI: 81 Y/O CF with a hx of dementia and depression admitted for increasing confusing and self care failure over the last two days. Pt was reportedly recently in [facility] for some delirium. Family reports recently the pt had a fall and has been more confused over the last two days. On face to face the pt is pleasant but confused. She is only oriented to self. She states she is not sure why she is here but believes it is due to pain. She is a poor historian and scored a 5 on her SLUMS. She reports her mood is stable and denies any psychotic symptoms. PAST PSYCH: Pt is a poor historian but was on our unit last year when she was treated for depression and self care failure. She reportedly has a hx of dementia as well. Hospital Course This is a general summary of the patient's hospital course. For more details refer to the complete medical record. Hospital course: ASSESSMENT Dementia with behavioral changes Gait instability with frequent falls Chronic headaches Elevated TSH-she is on Synthroid but has been forgetting to take her medications at times Severe constipation Moderate aortic stenosis Mitral valve prolapse Coronary artery disease Anemia; History of borderline low B 12 Paroxysmal A. fib-off of anticoagulation because of fall risk HTN Asthma/COPD 05/12/17 Hospitalist consult Obtain BMP, CBC, UA. Headache is primary concern - last hospitalization head CT was negative for acute findings. She's on a variety of different analgesics for her headaches. Provide safe environment - hx of frequent falls. TSH was checked 05/06/17 - 10.2, though there were reports that she wasn't taking her Synthroid at home. This has been resumed. Vit B12 was 554 - start oral replacement. She's on Keflex 250 mg daily as a home med - in review of [facility] records, Dr. Garcia Rx Keflex daily, likely prophylactic for recurrent UTI. CM working on DC plans. Psych H&P reviewed - psych meds are continued at this point. 05/12/17 18:51 Pt remains labile. Will increase Depakote to 250mg PO BID 05/13/17 12:36 Continues to have some mood lability. Continue current care 05/14/17 Diana has nausea, diarrhea. Two others from [facility] have become ill with Norovirus. Will check BMP, CBC, and stool (GI Panel). Vital signs are stable; no hypotension or tachycardia. Afebrile. Prophylactic Keflex was discontinued - risks outweigh benefits. 05/15/17 11:22 Patient is in contact precautions given her Campylobacter and Escherichia coli stool infection. Given the ongoing, severe headache and nausea in patient with dementia with behavioral changes and at risk for previous unreported fall, will check head CT despite normal head CT on recent hospitalization. 05/15/17 Pt improving. Continue current care 05/16/17 She had a temp of 100.5 last evening, but all other temperatures have been normal. Other vital signs stable. No change in care at this time. 05/16/17 19:29 Pt doing well. Will change Effexor to regular version due to concerns from family for absorption issues 05/17/17 19:48 Continue Depakote and Effexor at current doses - patient seems to be doing well other than frustration at contact precautions d/t Campylobacter in stool. Continue to monitor WBCs, mood, behavior and response to treatment. 05/18/17 10:34 Contact precautions may be discontinued at 1:30 this afternoon assuming she has no further loose stools. She is requiring PRN Percocet, this is not new for her. She continues to complain of severe headache, without showing any signs of distress. Recent CT head was negative. Labs in a.m.: CBC to monitor WBCs with patient being on Depakote, and BMP for recent diarrhea. 05/18/17 18:12 Psych: Increase Effexor to 112.5mg PO q AM and 75mg PO q HS; continue current dose of Depakote. Labs in AM. Continue current care otherwise; monitor mood, behavior and response to treatment. 05/19/17 20:12 Psych: Continue current doses of Effexor and Depakote, which patient seems to be tolerating well. Exhibiting some mild paranoia but is not as familiar with me as staff, and has not had any problematic behavior. Begin looking into discharge arrangements - patient will require SNU with OT/PT Speech Eval and Treat. 05/20/17 20:44 Psych: Patient significantly improved and doing well on current medication regimen. Chest x-ray pending. SW to finalize discharge arrangements in conjunction with SNU. 05/21/17 15:46 05/21/17 *Diarrhea resolved. Reports eating well. *Concern yesterday for chest wall pain. Appears to have atelectasis and mild pulmonary edema. Add low dose Lasix and monitor. Chest discomfort may be due to fluid overload. Suspect hx of orthostasis- Florinef. Will mildly increase Coreg for HF. PPM in place for rate control. Decrease MYRON to 2.5mg PO Q HS- Can DC MYRON/ARB given pEF if needed. *Continue synthroid for hypothyroidism. *Chronic AMANDA- PRN percocet and motrin provide some relief. Increased risk of medication overuse AMANDA. Continue depakote- could consider increasing Depakote for AMANDA relief if indicated. Remains on Gabapentin TID. May need to decrease dose due to advanced age. Overall, feeling well. Continue to monitor. 05/21/17 19:08 Psych: Patient doing well - continue planning for discharge to SNU on 05/22/17. Discharge Plan - Med Rec/Dispo Referrals/Follow Up: Benjamín Hameed MD [Family Provider] - (Dr. Naomi Hameed on 06/08/17 at 1:30 pm for Hosp. follow-up. [address] [place] [address] Patient will be seen on rounds at the facility for Mental Health follow-up. [phone]) Additional Instructions: Discharge Diagnosis: Major neurocognitive disorder, vascular, behavioral disturbance resolved by time of discharge Major depressive disorder, recurrent, severe (improved by discharge) Reasons for Admission: Doesn't want to get out of bed, ADL's declining, and refuses to walk, even though she can. IN CASE OF PSYCHIATRIC EMERGENCY, CONTACT [facility] AT ( available 24 hrs daily). Prescriptions: No Action Omeprazole 20 mg PO ACB #0 cap Saccharomyces Boulardii [Florastor] 250 mg PO PRN #0 Carvedilol [Coreg] 3.125 mg PO BIDWM #0 tab Ferrous Sulfate 324 mg PO WB #0 tab Primidone [Mysoline] 50 mg PO TID #0 tab Gabapentin [Neurontin] 600 mg PO TID #0 tab Venlafaxine [Effexor] 75 mg PO TID Lisinopril [Prinivil] 5 mg PO DAILY CephALEXin [Keflex] 250 mg PO DAILY Cholecalciferol (Vitamin D3) [Vitamin D3] 4,000 unit PO DAILY Divalproex Sodium 125 mg PO BID Oxycodone/APAP 7.5/325 [Percocet 7.5/325] 1 tab PO Q4H PRN PRN Reason: Pain Turmeric Root Extract [Turmeric] 1,500 mg PO DAILY Ibuprofen 200 mg PO Q4H PRN PRN Reason: Pain Melatonin 3 mg PO HS PRN tablet PRN Reason: Insomnia Fludrocortisone [Florinef] 0.1 mg PO DAILY #0 tab Multivitamin [Multi-Day Vitamins] 1 tab PO BID #30 tab Sennosides [Senokot] 8.6 mg PO DAILY #0 tab Levothyroxine Sodium [Synthroid] 112 mcg PO ACB #0 tab Polyethylene Glycol 3350 [Miralax] 17 g PO DAILY #0 bottle Amiodarone [Pacerone] 200 mg PO DAILY #0 tab Meloxicam [Mobic] 7.5 mg PO DAILY #0 Memantine [Namenda] 10 mg PO BID Acetaminophen [Tylenol] 325 - 650 mg PO Q5H PRN tablet PRN Reason: Discomfort Donepezil [Aricept] 10 mg PO HS tablet - Disposition 03 [facility] ([facility])
--- NOTE | 2017-05-21 19:32 | Extended Care Facility Orders ---
Admission Orders Admit to:: [facility] Allergies/Adverse Reactions: Allergies Penicillins Allergy (Severe, Verified 05/06/17 12:00) ANAPHYLACTIC-ENDED IN ICU FOR A DAY fluoxetine Allergy (Unknown, Verified 05/06/17 12:00) Iodinated Contrast- Oral and IV Dye Allergy (Unknown, Verified 05/06/17 12:00) RASH,SOA morphine Allergy (Unknown, Verified 05/06/17 12:00) nitrofurantoin Allergy (Unknown, Verified 05/06/17 12:00) Sulfa (Sulfonamide Antibiotics) Allergy (Unknown, Verified 05/06/17 12:00) RASH,ITCHY aspirin Adverse Reaction (Intermediate, Verified 05/06/17 12:00) HIGH BP, SOA naproxen Adverse Reaction (Intermediate, Verified 05/06/17 12:00) Shortness of Breath (Air) metoclopramide Adverse Reaction (Unknown, Verified 05/06/17 12:00) PT HAD REGLAN PREOPERATIVELY AND A REACTION THAT SHE WAS UNABLE TO DESCRIBE Admitting Diagnosis: Major depressive disorder Admitting Physician: Eufemia Brooks MD Attending Physician: Eufemia Brooks MD Code Status: Full Code Anticiapted Length of Stay: 30 days or less Rehab Potential: good Rehab Prognosis: good Diet: Regular Wound/Incision Care: Blister on toe May use Facility Protocol or Standing Orders: Yes Evaluations/Treatment: Speech, PT, OT [facility] Certification: I certify that SNF services are required to be given on an Inpatient basis because of the patients need for halfway care on a continuing basis for the condition(s) for which he/she received inpatient hospital services prior to his/her transfer to the SNF. SNF inpatient care is necessary for the following reasons Indication for [facility]: Other - Additional Information Resident is Aware of Diagnosis: Yes Referrals: Benjamín Hameed MD [Family Provider] - (Dr. Naomi Hameed on 06/08/17 at 1:30 pm for Hosp. follow-up. [address] [place] [address] Patient will be seen on rounds at the facility for Mental Health follow-up. )
[2017-05-21] MEDS: DONEPEZIL 10 MG TABLET PO SCH (19:38)
[2017-05-22] MEDS: OXYCODONE/APAP 7.5 MG/325 MG TABLET PO PRN ×3 (02:54→13:55)
[2017-05-22] MEDS: DONEPEZIL 10 MG TABLET PO SCH (04:03)
[2017-05-22] MEDS: DIVALPROEX 250 MG TABLET PO SCH ×2 (04:03→08:27)
[2017-05-22] MEDS: MEMANTINE 10 MG TABLET PO SCH ×2 (04:04→08:28)
[2017-05-22] MEDS: GABAPENTIN 600 MG TABLET PO SCH ×3 (04:04→14:10)
[2017-05-22] MEDS: LEVOTHYROXINE 112 MCG TABLET PO SCH (05:38)
[2017-05-22] MEDS: OMEPRAZOLE 20 MG CAPSULE PO SCH (05:39)
[2017-05-22] MEDS: VENLAFAXINE 37.5 MG TABLET PO SCH (08:27)
[2017-05-22] MEDS: CARVEDILOL 6.25 MG TABLET PO SCH (08:27)
[2017-05-22] MEDS: VENLAFAXINE 75 MG TABLET PO SCH (08:27)
[2017-05-22] MEDS: FERROUS SULFATE 324 MG TABLET PO SCH (08:27)
[2017-05-22] MEDS: FLUDROCORTISONE 0.1 MG TABLET PO SCH (08:27)
[2017-05-22] MEDS: AMIODARONE 200 MG TABLET PO SCH (08:28)
[2017-05-22] MEDS: CYANOCOBALAMIN (B-12) 500mcg TABLET PO SCH (08:28)
[2017-05-22] MEDS ORDERED: FUROSEMIDE 20 MG TABLET PO SCH (09:00)
[2017-05-22 10:08] VITALS: BP 163/97; PULSE 74; RESP 16; TEMP 97; O2SAT 97
--- NOTE | 2017-05-22 11:34 | Discharge Instructions ---
Discharge Plan - Med Rec/Dispo Referrals/Follow Up: Benjamín Hameed MD [Family Provider] - (Dr. Naomi Hameed on 06/08/17 at 1:30 pm for Hosp. follow-up. [address] [place] [address] Patient will be seen on rounds at the facility for Mental Health follow-up. ) Additional Instructions: Discharge Diagnosis: Major neurocognitive disorder, vascular, behavioral disturbance resolved by time of discharge Major depressive disorder, recurrent, severe (improved by discharge) Reasons for Admission: Doesn't want to get out of bed, ADL's declining, and refuses to walk, even though she can. IN CASE OF PSYCHIATRIC EMERGENCY, CONTACT [facility] AT ( available 24 hrs daily). Prescriptions: No Action Omeprazole 20 mg PO ACB #0 cap Saccharomyces Boulardii [Florastor] 250 mg PO PRN #0 Carvedilol [Coreg] 3.125 mg PO BIDWM #0 tab Ferrous Sulfate 324 mg PO WB #0 tab Primidone [Mysoline] 50 mg PO TID #0 tab Gabapentin [Neurontin] 600 mg PO TID #0 tab Venlafaxine [Effexor] 75 mg PO TID Lisinopril [Prinivil] 5 mg PO DAILY CephALEXin [Keflex] 250 mg PO DAILY Cholecalciferol (Vitamin D3) [Vitamin D3] 4,000 unit PO DAILY Divalproex Sodium 125 mg PO BID Oxycodone/APAP 7.5/325 [Percocet 7.5/325] 1 tab PO Q4H PRN PRN Reason: Pain Turmeric Root Extract [Turmeric] 1,500 mg PO DAILY Ibuprofen 200 mg PO Q4H PRN PRN Reason: Pain Melatonin 3 mg PO HS PRN tablet PRN Reason: Insomnia Fludrocortisone [Florinef] 0.1 mg PO DAILY #0 tab Multivitamin [Multi-Day Vitamins] 1 tab PO BID #30 tab Sennosides [Senokot] 8.6 mg PO DAILY #0 tab Levothyroxine Sodium [Synthroid] 112 mcg PO ACB #0 tab Polyethylene Glycol 3350 [Miralax] 17 g PO DAILY #0 bottle Amiodarone [Pacerone] 200 mg PO DAILY #0 tab Meloxicam [Mobic] 7.5 mg PO DAILY #0 Memantine [Namenda] 10 mg PO BID Acetaminophen [Tylenol] 325 - 650 mg PO Q5H PRN tablet PRN Reason: Discomfort Donepezil [Aricept] 10 mg PO HS tablet - Disposition 03 [facility] ([facility])
[2017-05-22] MEDS ORDERED: LISINOPRIL 2.5 MG TABLET PO SCH (21:00)
== END 2017-05-22 15:15 | DRG 884 ==
LOC: ED 14:18 → GEN 16:35
PROVIDERS: ADMIT Psychiatry & Neurology Psychiatry; ATTEND Psychiatry & Neurology Psychiatry

== ENCOUNTER 2017-12-22 00:16 | Observation (INO) ==
[2017-12-22] MEDS ORDERED: HYDROCODONE/APAP 5mg/325mg TABLET PO ONE (02:50)
[2017-12-22 03:33] VITALS: BMI 30.2
[2017-12-22] MEDS ORDERED: SENNA + DOCUSATE TABLET PO PRN (03:41)
[2017-12-22] MEDS ORDERED: ONDANSETRON 4 MG/2 ML INJECTION IVP PRN (03:41)
[2017-12-22] MEDS ORDERED: LORazepam 0.5 MG TABLET PO PRN (03:46)
--- NOTE | 2017-12-22 03:56 | History & Physical Report ---
History of Present Illness Date: 12/22/17 Chief complaint: Fall HPI: diana is a pleasantly demented 82-year-old female who is placed in observation status following her third emergency room visit in 24 hours. by review of records, the first 2 were occasioned by some sundowning, advancing delirium perhaps exacerbated by urinary tract infection for which she was placed on omnicef. apparently she had recently had a rhino rocket placed for epistaxis, but she had pulled that out. late last evening, she apparently fell at home, and was discovered to have fractured her left distal radius and ulna. this was splinted in the emergency department, and according to orthopedics no short-term intervention is warranted otherwise. [place] , who i am told also has some dementia. her daughter is her durable power of tax attorney and requested admission, certainly as they are home alone with home health checking on them regularly, this did not appear to be a safe disposition at the late hour, she is placed in observation status for further evaluation and management and case management consultation in the morning. Review of Systems ROS unobtainable: due to mental status - Constitutional Constitutional: Present: as per HPI Past Medical History Medical History: Medical History (Last Reviewed 12/04/17 @ 14:29 by Lise Horn MD) COPD (chronic obstructive pulmonary disease) (Chronic) Tremor (Chronic) Migraine headache (Chronic) Depression (Chronic) Anxiety (Chronic) MRSA (methicillin resistant Staphylococcus aureus) (Inactive) GERD (gastroesophageal reflux disease) (Chronic) Thyroid disease (Chronic) Hyperlipidemia (Chronic) Mitral valve prolapse (Chronic) Osteoporosis (Chronic) Surgical History: 1. Cholecystectomy - 12/2008. 2. Gastric bypass x 2. 3. Right TKR - 04/2010. 4. Pacemaker - 11/2016. 4. Kidney surgery - 2017 Family History: Family History (Last Reviewed 12/04/17 @ 14:29 by Lise Horn MD) Son Bipolar 1 disorder Unknown , Suicide Bipolar 1 disorder Mother Coronary artery disease Osteoporosis Stroke Father Coronary artery disease Glaucoma Brother High blood pressure Hyperlipidemia Sister Cancer of colon Family History: Unable to Obtain - Social History Smoking status: Never smoker Medications Home Medications Medication Instructions Recorded Confirmed Type Amiodarone [Pacerone] 200 mg PO NOON #0 tab 12/13/16 12/22/17 History Carvedilol [Coreg] 3.125 mg PO BIDWM #0 tab 12/13/16 12/22/17 History Memantine [Namenda] 10 mg PO BID 05/06/17 12/22/17 History Donepezil [Aricept] 10 mg PO HS tab 05/09/17 12/22/17 Rx Neurontin (gabapentin) 600 mg 600 mg PO TID #90 tab 09/11/17 12/22/17 Rx tablet venlafaxine 75 mg tablet 75 mg PO BID tab 09/11/17 12/22/17 History Depakote (divalproex) 125 mg 125 mg PO DAILY tab 12/04/17 12/22/17 History tablet,delayed release melatonin 10 mg capsule 10 mg PO HS 12/04/17 12/22/17 History Acetaminophen [Tylenol] 500 mg PO PRN 12/20/17 12/22/17 History Cefdinir [Omnicef] 300 mg PO BID #14 cap 12/20/17 12/22/17 Rx Cholecalciferol (Vitamin D3) 2,000 unit PO TID 12/20/17 12/22/17 History [Vitamin D3] Ferrous Sulfate 325 mg PO HS 12/20/17 12/22/17 History LORazepam [Ativan] 0.5 mg PO DAILY PRN 12/20/17 12/22/17 History Levothyroxine Tab [Synthroid] 137 mcg PO DAILY 12/20/17 12/22/17 History Lisinopril [Prinivil] 5 mg PO DAILY 12/20/17 12/22/17 History OLANZapine ODT [ZyPREXA Zydis] 10 mg SL HS PRN #30 tab 12/20/17 12/22/17 Rx Omeprazole [Prilosec] 20 mg PO DAILY 12/20/17 12/22/17 History Ondansetron HCl [Zofran] 4 mg PO PRN 12/20/17 12/22/17 History Allergies Allergy/AdvReac Type Severity Reaction Status Date / Time Penicillins Allergy Severe ANAPHYLACTIC-ENDED Verified 12/22/17 00:27 IN ICU FOR A DAY fluoxetine Allergy Unknown Verified 12/22/17 00:27 Iodinated Contrast- Oral and Allergy Unknown RASH,SOA Verified 12/22/17 00:27 IV Dye morphine Allergy Unknown Verified 12/22/17 00:27 nitrofurantoin Allergy Unknown Verified 12/22/17 00:27 Sulfa (Sulfonamide Allergy Unknown RASH,ITCHY Verified 12/22/17 00:27 Antibiotics) iodine Allergy RASH, SOA Verified 12/22/17 00:27 aspirin AdvReac Intermediate HIGH BP, Verified 12/22/17 00:27 SOA naproxen AdvReac Intermediate Shortness Verified 12/22/17 00:27 of Breath (Air) metoclopramide AdvReac Unknown Verified 12/22/17 00:27 Exam Vital Signs: Temperature 97.3 F 12/22/17 03:31 Pulse Rate 78 12/22/17 03:31 Respiratory Rate 18 12/22/17 03:31 Blood Pressure 168/86 H 12/22/17 03:31 Pulse Oximetry 98 12/22/17 03:31 Height/Weight/BMI: Height 5 ft 5 in Weight 82.5 kg Body Mass Index 30.2 - Constitutional Present: no acute distress - Routine HEENT Exam Head: Present: normocephalic, atraumatic Eye: Present: EOMI ENT: Present: mucous membranes moist - Routine Neck Exam Present: supple. Absent: JVD - Routine Respiratory Exam Present: CTA bilaterally. Absent: accessory muscle use - Routine Cardiovascular Exam Present: RRR - Routine Abdominal Exam Present: soft, normoactive bowel sounds, non distended, non tender. Absent: tenderness - Routine Extremities Exam Absent: cyanosis, clubbing, edema - Routine Skin Exam Present: intact, dry. Absent: rash Comments: Some erythema noted to her L heel posteriorly - Routine Neurological Exam Present: alert. Absent: oriented X3 She is a non-historian for me, answered some yes/no questions for the RN at the bedside. She apparently indicated to staff that she had only fallen once today, but other reports indicated several falls recently - Routine Psychiatric Exam Comments: Flat affect - Additional findings Additional findings: examination performed using telemedicine equipment with the assistance of the bedside nurse Assessment and Plan (1) Wrist fracture, closed Current visit: Yes Status: Acute (2) COPD (chronic obstructive pulmonary disease) Current visit: No Status: Chronic (3) Thyroid disease Current visit: No Status: Chronic (4) Dementia Current visit: No Status: Acute (5) Hyperlipidemia Current visit: No Status: Chronic Assessment and Plan: Diana is placed in observation status for further elucidation of her most appropriate disposition. the majority of her home medications are continued as reconciled, including omnicef for recently diagnosed urinary tract infection on a prior er visit. she denied pain at this time. physical and occupational therapy assessments are appreciated and may be helpful in determining her new functional status. certainly her cognitive impairment plays a significant role in her perceived inability to care for herself at home. she can likely follow-up with orthopedics as an outpatient, this was indicated by the emergency room provider who spoke with orthopedics. we will provide further symptomatic supportive and diagnostic cares as the current workup or as changes in her clinical scenario indicate. DVT Prophylaxis: SCD's Resuscitation Status: Full Code - Physician Narrative Physician: Fozia Wilburn MD Narrative: Date: 12/22/17 Time: 853 CC: "I fell" HPI: Ms. Brunson is a very pleasant 82 y/o female with dementia. The patient was seen in the emergency room on 12/20 on 2 separate occasions. Initially she came in with a nosebleed and hematuria. She was taken initially to her primary care physician's office and Merocel was placed. Despite that she continued to have using around the Merocel and was noted to have hematuria. Her primary care physician sent her to the ER for further evaluation. Her epistaxis had essentially resolved by the time she got to the ER. She was subsequently sent back home. She was brought back to the emergency room late afternoon by EMS ( called by the daughter who lives in [place]) for concerns of behavioral disturbances, altered mental status and self removal of nasal packing. She was diagnosed with a urinary tract infection recently which felt may be the nidus of her behavioral changes. She was given antibiotics in the ER and then DC's home on omnicef. Apparently she was refusing to take her medications at home. There was no criteria for admission and she was again sent home. This morning she came back to the emergency room after sustaining a fall last evening. She does have a bruise and bump on her left for head. In addition she was found to have a fracture of her left distal radius and ulna. This was splinted in the emergency room. Orthopedics was consultative and felt no short- term intervention was warranted. At this point her daughter who lives in [place], who is her DPOA requested the patient be admitted. The patient [place]. They do have home health checks on them regularly but it was felt she would be best served with an observation admission for safety reasons. When seen by me this morning she is resting comfortably. She was able to tell me that she fell at home. She denies syncope or near syncopal episodes. She stated that she thinks she just tripped. She is having some discomfort in her left arm, and is asking for pain medication. She is fairly somnolent this morning and I have to keep waking her to continue my interview. Her review of systems was performed however reliability is questionable due to her dementia. She denies headache. She denies feeling short of breath. She denies having any cough. She denies any chest pain or palpitations. She denies nausea or vomiting. She denies diarrhea or constipation. She denies abdominal pain. She denies any genitourinary symptoms. Her only complaint is that of her left arm. Past medical history: (Pt could not provide history of surgeries, this was obtained from old record review) Current medications: Tylenol 500 mg PRN vitamin D3 2000 units TID melatonin 10 mg QHS Zyprexa 10 mg sublingual QHS Zofran 4 mg PRN amiodarone 200 mg Q day carvedilol 3.125 mg BID Omnicef 300 mg BID Divalproex 125 mg daily Aricept 10 mg QHS ferrous sulfate 325 mg QHS gabapentin 600 mg TID levothyroxine hundred and 37 g daily lisinopril 5 mg daily lorazepam 0.5 mg daily Namenda 10 mg BID Prilosec 20 mg daily Effexor 75 mg BID Allergies: (Pt could not provide history of surgeries, this was obtained from old record review) penicillins fluoxetine iodinated contrast morphine nitrofurantoin sulfa antibiotics aspirin naproxen metoclopramide Medical history: (Pt could not provide history of surgeries, this was obtained from old record review) PAF s/p PPM, no OAC 2/2 falls Asthma/COPD chronic tremor chronic migraine headaches Depression anxiety gastric softer reflux disease hypothyroidism dyslipidemia hypertension osteoporosis dementia aortic stenosis coronary artery disease history of nephrology psoriasis chronic pain constipation Surgical history: (Pt could not provide history of surgeries, this was obtained from old record review) cholecystectomy heart catheterization right total knee foot surgery PPM Abdominal surgeries x 2 (circa ) Rehana n Y gastric bypass 1980 Kidney surgery (?renal stones) Family History: (Obtained from old record review) Son Bipolar 1 disorder Mother , CAD, Stroke, Osteoporosis Father , CAD Brother HTN, HLP Sister Colon ca Social history: (Reliability suspect due to dementia) Pt tells me she lives with her "I think". Never smoked Walks unassisted No ETOH ROS: 14 pt review of systems was attempted and was negative except documented in the history of present illness. Please note however the patient has underlying dementia and was unable to give me much history so her review of systems is questionable and reliability. Physical exam: Gen: alert and oriented. NAD Skin: warm and dry HEENT: NC/AT PERRL, EOMI, Sclera, lids and conjunctiva wnl, MMM, OP clear Neck: supple. No JVD, Carotids 2+ without bruits. Lungs: clear, No rales, rhonchi, wheezes. CV: regular. No murmur, rub or gallop Abd: soft. NT/ND, +BS MS: No edema. Good strength and ROM. Neuro: No focal deficit Significant lab another data: Echo done on 12/19/16: IMPRESSION 1. Normal LV systolic function with ejection fraction of 65%. 2. Concentric left ventricular hypertrophy. 3. Left atrial dilation. 4. Moderate aortic stenosis with a valve area of 1.16 cm2 with mild aortic insufficiency. 5. Mild mitral regurgitation. 6. Mild tricuspid regurgitation with normal estimated pulmonary artery systolic pressure of 27. 7. Mild pulmonary insufficiency. 12/20/17 Labs: white blood count 6100, hemoglobin 12, hematocrit 36.2, platelets 185. INR 1.01 sodium 131, potassium 3.8, chlorine 96, CO2 24, B1 12, creatinine 0.7 and glucose 114, calcium 8.7, liver function test are wnl urine analysis revealed 3+ blood positive nitrates 3+ leukocyte esterase white blood count too numerous to count 3+ bacteria urine culture grew out Klebsiella pneumonia sensitive to the cephalosporins, floxacins, bactrim, augmentin, and zosyn. Of note, pt treated with omnicef. Assessment and plan: 1. Fall-mechanical with left wrist fracture and Left frontal scalp hematoma 2. Wrist fracture-splinted -No short term need for orthopedic intervention -Will need follow up as outpt 3. Recent UTI -On Omnicef for Klebsiella Pneumonia -Repeat urine for resolution 4. Dementia -Prior admit to generations in the past -May need placement 5. Asthma/COPD -Resp therapy PRN -Currently without evidence of exacerbation 6. CAD -No complaints of anginal symptoms 7. VHD (2017) -Moderate aortic stenosis with a valve area of 1.16 cm2 with mild aortic insufficiency. -Mild mitral regurgitation. -Mild tricuspid regurgitation with normal estimated pulmonary artery systolic pressure of 27. -Mild pulmonary insufficiency 8. Hypothyroid -Continue supplements -Repeat TSH and FT4 9. Dementia, depression -Continue Namenda, Effexor, Divalproex, Aricept, zyprexa 10. Hyperlipidemia -Not on statins 11. Anemia -On iron and vit D supplements 12. HTN -Continue coreg and lisinopril 13. PAF -On amiodarone -Telemetry -Not on OAC 2/2 frequent falls 14. Chronic pain -On gabapentin-continue 15. GERD -On PPI 16. Prophylaxis -PPI and SCDs 17. PT/OT evaluation It appears to me that she is likely unable to care for herself at home. I do not know the status of her husbands mental capacity. She may benefit from [facility] psych eval. Will get case management to work with her and her family on options at discharge. Hospital Course Summary Disclaimer: The visit summary below is not to be considered part of the above Progress Note.
[2017-12-22] MEDS ORDERED: FALL RISK - PHARMACY CONSULT MC ONE (04:37)
[2017-12-22] MEDS: HYDROCODONE/APAP 5mg/325mg TABLET PO PRN ×3 (07:16→21:36)
[2017-12-22 07:39] VITALS: RESP 16; O2SAT 97
--- NOTE | 2017-12-22 08:00 | XRay Report ---
Indication: Fall PROCEDURE: XR wrist LT 3-4 views: Encounter: Initial Comparison: None Findings/ Impression: Closed posttraumatic impacted minimally dorsally angulated fracture of the distal radius. This does not appear to extend into the joint space however bony demineralization limits evaluation. There is also a minimally displaced fracture of the distal ulna and ulnar styloid. Osteoarthritis also noted in the first carpometacarpal joint. .
--- NOTE | 2017-12-22 08:01 | CT Scan Report ---
Indication: Fall PROCEDURE: CT head/brain wo con: Encounter: Initial Comparison: May 15, 2017 Technique: Axial CT images through the head were performed without contrast. Iterative Reconstruction dose reducing technique was utilized. FINDINGS: Moderate generalized atrophy. The ventricles are of normal size, shape, and configuration for the patient's age. There is no evidence of acute intracranial hemorrhage, midline displacement, or mass effect. There are extensive areas of low attenuation in the white matter which most likely represent changes of chronic microvascular ischemia. The CT attenuation of the brain parenchyma is otherwise normal within the cerebellum, brain stem, and cerebral hemispheres. The tympanic cavities and mastoid air cells are free of appreciable disease. There are no definite fractures of the skull base, calvarium, or visualized portion of the midface. Left frontal scalp hematoma. IMPRESSION: No CT evidence of acute traumatic intracranial injury. There is a preliminary report by [id number]. .
[2017-12-22] MEDS: LEVOTHYROXINE 137 MCG PO SCH (09:13)
[2017-12-22] MEDS: LISINOPRIL 5 MG TABLET PO SCH (09:13)
[2017-12-22] MEDS: DIVALPROEX 125 MG TABLET PO SCH (09:13)
[2017-12-22] MEDS: FERROUS SULFATE 324 MG TABLET PO SCH (09:14)
[2017-12-22] MEDS: CEFDINIR 300 MG PO SCH ×2 (09:14→21:36)
[2017-12-22] MEDS: CARVEDILOL 3.125 MG TABLET PO SCH ×2 (09:14→18:03)
[2017-12-22] MEDS: VENLAFAXINE 75 MG TABLET PO SCH ×2 (09:14→18:03)
[2017-12-22] MEDS: MEMANTINE 10 MG TABLET PO SCH ×2 (09:14→21:36)
[2017-12-22] MEDS: OMEPRAZOLE 20 MG CAPSULE PO SCH (09:14)
[2017-12-22] MEDS: GABAPENTIN 600 MG TABLET PO SCH ×3 (09:14→21:36)
[2017-12-22] MEDS ORDERED: OLANZapine ODT 5 MG TABLET PO PRN (09:59)
[2017-12-22] MEDS ORDERED: ACETAMINOPHEN 500 MG TABLET PO PRN (10:00)
[2017-12-22] MEDS: ACETAMINOPHEN 325 MG TABLET PO PRN (12:58)
[2017-12-22] MEDS: AMIODARONE 200 MG TABLET PO SCH (12:58)
[2017-12-22] MEDS ORDERED: MELATONIN 5 MG TABLET PO SCH (21:00)
[2017-12-22] MEDS ORDERED: NON-FORMULARY MEDICATION 1 EACH EACH (Ferrous Sulfate [Ferrous Sulfate] 325 MG) PO SCH (21:00)
[2017-12-22] MEDS ORDERED: DONEPEZIL 10 MG TABLET PO SCH (21:00)
[2017-12-23] MEDS: HYDROCODONE/APAP 5mg/325mg TABLET PO PRN (03:07)
[2017-12-23] MEDS: OMEPRAZOLE 20 MG CAPSULE PO SCH (05:55)
[2017-12-23] MEDS: LEVOTHYROXINE 137 MCG PO SCH (05:55)
--- NOTE | 2017-12-23 07:21 | Emergency Department Report ---
Fall HPI - General Chief Complaint: Fall Stated Complaint: fell, lt wrist pain, head injury Time Seen by Provider: 12/22/17 00:32 Source: patient, family, EMS, RN notes reviewed, old records reviewed Mode of arrival: EMS Limitations: altered mental status (Dementia) - History of Present Illness HPI Narrative: 82yo woman presented to the ER by EMS after a fall. Pt is demented and has been having episodes of behavioral disturbances, sundowning, etc. Pt was seen in this ER yesterday and placed on zyprexa HS for treatment of agitation and sundowning. After not sleeping well for weeks, pt slept most of the day. Daughter (DPOA) called the PCM, who stated that the zyprexa was inappropriate and instructed them to not give more. Granddaughter and great-granddaughter ( who actually care for pt and are present on both ER visits) did not redose zyprexa due to pts sleeping. After sleeping all night/day, pt awoke this evening and tried to go the bathroom. Pt fell, striking her head and injuring her left wrist. Pt believes that she broke her wrist. MD complaint: fall Onset (ago): minute(s) Fall from: standing Fall witnessed: no Place fall occurred: home Loss of consciousness: none Prolonged down time: no Symptoms prior to fall: other (Dementia) Context: tripped/slipped Location of injury: head Location of injury - extremities: Left: forearm Severity: moderate Severity scale (1-10): 5 Quality: stabbing, aching Associated symptoms (after fall): headache - Related Data Home Medications Medication Instructions Recorded Confirmed Amiodarone [Pacerone] 200 mg PO NOON #0 tab 12/13/16 12/22/17 Carvedilol [Coreg] 3.125 mg PO BIDWM #0 tab 12/13/16 12/22/17 Memantine [Namenda] 10 mg PO BID 05/06/17 12/22/17 venlafaxine 75 mg tablet 75 mg PO BID tab 09/11/17 12/22/17 Depakote (divalproex) 125 mg 125 mg PO DAILY tab 12/04/17 12/22/17 tablet,delayed release melatonin 10 mg capsule 10 mg PO HS 12/04/17 12/22/17 Acetaminophen [Tylenol] 500 mg PO PRN 12/20/17 12/22/17 Cholecalciferol (Vitamin D3) 2,000 unit PO TID 12/20/17 12/22/17 [Vitamin D3] Ferrous Sulfate 325 mg PO HS 12/20/17 12/22/17 LORazepam [Ativan] 0.5 mg PO DAILY PRN 12/20/17 12/22/17 Levothyroxine Tab [Synthroid] 137 mcg PO DAILY 12/20/17 12/22/17 Lisinopril [Prinivil] 5 mg PO DAILY 12/20/17 12/22/17 Omeprazole [Prilosec] 20 mg PO DAILY 12/20/17 12/22/17 Ondansetron HCl [Zofran] 4 mg PO PRN 12/20/17 12/22/17 Previous Rx's Medication Instructions Recorded Donepezil [Aricept] 10 mg PO HS tab 05/09/17 Neurontin (gabapentin) 600 mg 600 mg PO TID #90 tab 09/11/17 tablet Cefdinir [Omnicef] 300 mg PO BID #14 cap 12/20/17 OLANZapine ODT [ZyPREXA Zydis] 10 mg SL HS PRN #30 tab 12/20/17 Allergies Allergy/AdvReac Type Severity Reaction Status Date / Time Penicillins Allergy Severe ANAPHYLACTIC-ENDED Verified 12/22/17 00:27 IN ICU FOR A DAY fluoxetine Allergy Unknown Verified 12/22/17 00:27 Iodinated Contrast- Oral and Allergy Unknown RASH,SOA Verified 12/22/17 00:27 IV Dye morphine Allergy Unknown Verified 12/22/17 00:27 nitrofurantoin Allergy Unknown Verified 12/22/17 00:27 Sulfa (Sulfonamide Allergy Unknown RASH,ITCHY Verified 12/22/17 00:27 Antibiotics) iodine Allergy RASH, SOA Verified 12/22/17 00:27 aspirin AdvReac Intermediate HIGH BP, Verified 12/22/17 00:27 SOA naproxen AdvReac Intermediate Shortness Verified 12/22/17 00:27 of Breath (Air) metoclopramide AdvReac Unknown Verified 12/22/17 00:27 Review of Systems All systems: reviewed and negative except as stated Musculoskeletal: Reports: as per HPI, joint swelling, arthralgia. Denies: back pain, myalgia PFSH Patient Stated Medical History Alzheimer's Disease Yes Dementia Yes Cataracts Yes Other HEENT Yes: Fractured right side of face Cardiac Arrhythmia Yes Hypertension Yes Valvular Heart Disease Yes Asthma Yes Bronchitis Yes Chronic Obstructive Pulmonary Yes Disease (COPD) Pneumonia Yes Gastroesophageal Reflux Yes Disease Other GI Yes: Chronic Constipation Hx Urinary Tract Infection Yes Other Yes: Kidney repair Anemia Yes Clotting Problems Yes Other Musculoskeletal Yes: Degenerative Arthritis Cellulitis Yes Shingles Yes Depression Yes Post Menopausal Yes Clinic Medical History (Last Reviewed 12/04/17 @ 14:29 by Lise Horn MD) COPD (chronic obstructive pulmonary disease) (Chronic Medical) Tremor (Chronic Medical) Migraine headache (Chronic Medical) Depression (Chronic Medical) Anxiety (Chronic Medical) MRSA (methicillin resistant Staphylococcus aureus) (Inactive Medical) GERD (gastroesophageal reflux disease) (Chronic Medical) Thyroid disease (Chronic Medical) Hyperlipidemia (Chronic Medical) Mitral valve prolapse (Chronic Medical) Osteoporosis (Chronic Medical) Surgical History: 1. Cholecystectomy - 12/2008. 2. Gastric bypass x 2. 3. Right TKR - 04/2010. 4. Pacemaker - 11/2016. 4. Kidney surgery - 2016 Family History: Family History (Last Reviewed 12/04/17 @ 14:29 by Lise Horn MD) Son Bipolar 1 disorder Unknown , Suicide Bipolar 1 disorder Mother Coronary artery disease Osteoporosis Stroke Father Coronary artery disease Glaucoma Brother High blood pressure Hyperlipidemia Sister Cancer of colon - Social History Smoking status: Never smoker Substance use type: does not use Alcohol intake: never Housing: house Household members: spouse Current occupational status: retired Current residence: Apartment/Private Home Physical Exam - Limitations Limitations: altered mental status (Dementia) - General General appearance: alert, in no apparent distress, obese - Expanded Head Exam Head exam physical: Present: hematoma. Absent: laceration, abrasion, contusion , raccoon eyes, Michelle's sign, tenderness of temporal artery, CSF rhinorrhea, CSF otorrhea 1 - Hematoma - Eye Eye exam: Present: normal appearance, PERRL, EOMI. Absent: scleral icterus - ENT ENT exam: Present: normal exam, normal oropharynx, mucous membranes moist, normal external ear exam - Neck Neck exam: Present: normal inspection, full ROM, trachea midline. Absent: tenderness, lymphadenopathy - Chest Chest inspection: Present: normal inspection, symmetric chest wall rise. Absent : tenderness, rash - Respiratory Respiratory exam: Present: normal lung sounds bilaterally. Absent: respiratory distress, wheezes, stridor, prolonged expiratory phase, crackles - Cardiovascular Cardiovascular exam: Present: regular rate, normal rhythm, normal heart sounds. Absent: rubs, gallop, clicks - Abdominal Exam Abdominal exam: Present: soft, normal bowel sounds. Absent: distention, tenderness, guarding, rebound, rigidity - Expanded Upper Extremity Exam left Forearm/Wrist exam: Present: tenderness, swelling, ecchymosis, deformity, crepitus. Absent: normal inspection, full ROM, abrasion, laceration, dislocation, erythema - Skin Skin exam: Present: warm, dry. Absent: rash - Neurological Exam Neurological exam: Present: alert, CN II-XII intact, reflexes normal. Absent: oriented X3 - Psychiatric Psychiatric exam: Present: flat affect Course - Consultations Consultation #1: Dr. Sherwood: Place sugar-tong splint. Pt can f/u in clinic. Consultation #2: Xander Telemed: Will admit for obs overnight. Pt unlikely to meet inpt criteria; will give case mgmt a chance to work with pt and DPOA in the AM. Vital Signs Temperature 98.7 F 12/22/17 00:17 Pulse Rate 79 12/22/17 00:17 Respiratory Rate 20 12/22/17 00:17 Blood Pressure 181/93 H 12/22/17 00:17 Pulse Oximetry 96 12/22/17 00:17 Temperature 97.4 F 12/22/17 23:59 Pulse Rate 70 12/22/17 23:59 Respiratory Rate 16 12/22/17 23:59 Blood Pressure 118/66 12/22/17 23:59 Pulse Oximetry 97 12/22/17 23:59 Fall - MDM Narrative Medical decision making narrative: This is pts third ER visit in 24hrs. No indications for admission, however, pt is clearly not safe at home. DPOA has not come to the ER at any point during pts ER visits over the last 24hrs. By phone, DPOA is demanding and aggressive. 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 Pts caretakers repeatedly state that they believe that pt and spouse need to be institutionalized. They have attempted to discuss this with DPOA numerous times, without any success. All of the foregoing is discussed with telehospitalist. Will admit for obs; pt will likely not meet inpt criteria. Regardless, txfr to rehab is unlikely to be covered or helpful, 2/2 underlying dx of dementia and comorbidities. If DPOA is unwilling to act in pts best interests, referral to DCF as 'elder abuse' may be warranted. - Differential Diagnosis Likely: fracture of wrist (Wrist sprain, ICH), concussion without loss of consciousness - Medical Records Attestation: I reviewed the patient's medical records. - Lab Data Attestation: I reviewed the patient's lab results. Result diagrams: 12/22/17 11:00 12/22/17 11:00 - Radiology Data Attestation: I reviewed the patient's radiology results. Left wrist: Fractured distal radius/ulna. Disposition Clinical Impression: Repeated falls Radius and ulna distal fracture Qualifiers: Encounter type: initial encounter Fracture type: closed Laterality: left Qualified Code(s): S52.502A - Unspecified fracture of the lower end of left radius, initial encounter for closed fracture; S52.602A - Unspecified fracture of lower end of left ulna, initial encounter for closed fracture Scalp hematoma Qualifiers: Encounter type: initial encounter Qualified Code(s): S00.03XA - Contusion of scalp, initial encounter Disposition: To OBS [facility] Condition: Stable - Seen By: physician
[2017-12-23 07:43] VITALS: TEMP 97.5
--- NOTE | 2017-12-23 08:31 | Progress Note ---
- Date 12/23/17 Subjective: F/U: mechanical fall, left wrist fracture, dementia. Kalyani is seen this morning shortly after waking up. She still appears drowsy. She reports that she is feeling good and denies any current pain. No chest pain , shortness of breath, cough, abdominal pain, nausea, vomiting or dysuria. She continues on omnicef for current UTI secondary to klebsiella pneumonia. Her appetite has been stable and urinary output is adequate. Splint clean, dry and intact to left wrist with good cap refill and N/V intact. Objective Vital signs: Temperature 97.5 F 12/23/17 07:37 Pulse Rate 71 12/23/17 07:37 Respiratory Rate 16 12/23/17 07:37 Blood Pressure 119/65 12/23/17 07:37 Pulse Oximetry 97 12/23/17 07:37 Height/Weight/BMI: Height 5 ft 5 in Weight 184 lb 11.958 oz Body Mass Index 30.2 Comments: Sitting in recliner, preparing for breakfast; appears drowsy. - Constitutional Present: no acute distress, well nourished, well developed, cooperative - Routine HEENT Exam Head: Present: normocephalic Eye: Present: PERRL. Absent: conjunctival icterus ENT: Present: mucous membranes moist Comments: Slight swelling and bruising noted to left orbital and face from fall prior to admission. - Routine Respiratory Exam Present: CTA bilaterally. Absent: rales, respiratory distress, wheezes - Routine Cardiovascular Exam Present: RRR, S1, S2, murmur - Routine Abdominal Exam Present: soft, normoactive bowel sounds, non tender, distended - Routine Extremities Exam Present: edema (trace), pulses intact Comments: Splint to left wrist intact, clean and dry; brisk cap refill; N/V intact. - Routine Back/Spine/Pelvis Exam Back/Spine: Present: kyphosis. Absent: vertebral tenderness - Routine Musculoskeletal Exam Musculoskeletal: Present: no clubbing or cyanosis - Routine Skin Exam Present: intact, dry, warm Comments: Afebrile. - Routine Neurological Exam Present: alert, hearing grossly intact, normal speech - Routine Lymphatic Exam Lymphatic: Absent: lymphedema - Routine Psychiatric Exam Present: cooperative Results - Labs CBC & Chem 7: 12/23/17 08:06 12/23/17 08:06 Microbiology Results: Microbiology 12/22/17 10:42 Urine, Cath Straight Urine Culture - Preliminary Culture Initiated - Results Pending Assessment and Plan (1) Wrist fracture, closed Current visit: Yes Status: Acute (2) UTI (urinary tract infection) Current visit: Yes Status: Acute (3) Hyperlipidemia Current visit: No Status: Chronic (4) Dementia Current visit: No Status: Chronic (5) Thyroid disease Current visit: No Status: Chronic (6) COPD (chronic obstructive pulmonary disease) Current visit: No Status: Chronic Assessment and Plan: Assessment and plan: 1. Fall-mechanical with left wrist fracture and left frontal scalp hematoma 2. Wrist fracture-splinted -No short term need for orthopedic intervention -Will need follow up as outpatient. 3. Recent UTI -On Omnicef for Klebsiella Pneumonia UTI - started 12/20/17 in ED. -Repeat UA reveals 20-30 WBC with 2+ bacteria - culture and sensitivity results pending. 4. Dementia with recent behavioral changes -Prior admit to generations in the past -May need placement upon discharge. -No behaviors currently. -Continue Namenda, Effexor, Divalproex, Aricept, zyprexa 5. Asthma/COPD -Resp therapy PRN -Currently without evidence of exacerbation 6. CAD -No complaints of anginal symptoms -Continue home medications. 7. VHD (2017) -Moderate aortic stenosis with a valve area of 1.16 cm2 with mild aortic insufficiency. -Mild mitral regurgitation. -Mild tricuspid regurgitation with normal estimated pulmonary artery systolic pressure of 27. -Mild pulmonary insufficiency 8. Hypothyroid -Continue supplements - TSH 1.81 on admission. 9. Anemia -On iron and vit D supplements - stable without signs of acute bleeding. 10. HTN -Continue coreg and lisinopril -Given recent falls, will assess orthostatic pressures. 12. A-fib. -On amiodarone -Continue to monitor closely on telemetry - NS rhythm currently. -No oral anticoagulation due to risk of falls. 13. Chronic pain -On gabapentin-continue 14. GERD -Continue Prilosec 15. PT/OT evaluation on 12/22/17 -Significant concern for safety at home given cognitive impairments. Would benefit from SNU. -PT/OT noted decreased strength, activity tolerance, endurance, balance. Recommend inpatient PT/OT. DVT Prophylaxis: SCD's GI Prophylaxis: other (Prilosec) Resuscitation Status: Full Code - Time spent with patient Time with patient PN: 30 minutes - Physician Narrative Physician: Arden Savage MD Narrative: Date: 12/23/17 Time: 1710 Have independently interviewed and examined pt. Chart reviewed. Case discussed with CM and my PA. Care plan developed with my supervision; agree with above. Doing okay. Notes difficulty getting around due to wrist splint. Still has pain , but last Tempe use was a 0300 this am. Breathing well. Eating well. Lungs: decreased, no distress CV: regular AB: soft nt MSE: awake alert Plan: Did place IRU evaluation for patient, was declined. CM has worked with pt' s daughter on care arrangements at home. Most likely needing NH care, but family not for this currently. With medical stability, will discharge to home. See orders for details. Hospital Course Summary Disclaimer: The visit summary below is not to be considered part of the above Progress Note. Hospital Course: Assessment and plan - 12/22/17: 1. Fall-mechanical with left wrist fracture and Left frontal scalp hematoma; Wrist fracture-splinted. -No short term need for orthopedic intervention -Will need follow up as outpt 3. Recent UTI; On Omnicef for Klebsiella Pneumonia; Repeat urine for resolution. 5. Asthma/COPD -Resp therapy PRN -Currently without evidence of exacerbation. 7. VHD (2017) -Moderate aortic stenosis with a valve area of 1.16 cm2 with mild aortic insufficiency-Mild mitral regurgitation.-Mild tricuspid regurgitation with normal estimated pulmonary artery systolic pressure of 27.-Mild pulmonary insufficiency 8. Hypothyroid -Continue supplements 9. Dementia, depression -Continue Namenda, Effexor, Divalproex, Aricept, Zyprexa 10. Hyperlipidemia-Not on statins 11. Anemia-On iron and vit D supplements 12. HTN-Continue Coreg and lisinopril 13. PAF-On ursausblpa-Fgaktykec-Vhk on OAC 2/2 frequent falls 14. Chronic pain-On gabapentin-continue 15. GERD-On PPI 16. Prophylaxis-PPI and SCDs 17. PT/OT evaluation It appears to me that she is likely unable to care for herself at home. I do not know the status of her husbands mental capacity. She may benefit from [facility] psych eval. Will get case management to work with her and her family on options at discharge. 12/23/17 1. Fall-mechanical with left wrist fracture and left frontal scalp hematoma 2. Wrist [id number] short term need for orthopedic intervention-Will need follow up as outpatient. 3. Recent UTI-On Omnicef for Klebsiella Pneumonia UTI - started 12/20/17 in ED.- Repeat UA reveals 20-30 WBC with 2+ bacteria - culture and sensitivity results pending. 4. Dementia with recent behavioral changes-Prior admit to generations in the past-May need placement upon discharge.-No behaviors currently.-Continue Namenda , Effexor, Divalproex, Aricept, Zyprexa 5. Asthma/COPD-Resp therapy PRN-Currently without evidence of exacerbation 6. CAD-No complaints of anginal symptoms-Continue home medications. 7. VHD (2017-Moderate aortic stenosis with a valve area of 1.16 cm2 with mild aortic insufficiency.-Mild mitral regurgitation.-Mild tricuspid regurgitation with normal estimated pulmonary artery systolic pressure of 27.-Mild pulmonary insufficiency 8. Hypothyroid -Continue supplements - TSH 1.81 on admission. 9. Anemia-On iron and vit D supplements - stable without signs of acute bleeding. 10. HTN-Continue coreg and lisinopril-Given recent falls, will assess orthostatic pressures. 12. A-fib.-On amiodarone-Continue to monitor closely on telemetry - NS rhythm currently.-No oral anticoagulation due to risk of falls. 13. Chronic pain-On gabapentin-continue 14. GERD-Continue Prilosec 15. PT/OT evaluation on 12/22/17-Significant concern for safety at home given cognitive impairments. Would benefit from SNU.-PT/OT noted decreased strength, activity tolerance, endurance, balance. Recommend inpatient PT/OT. Attempted IRU evaluation, but patient declined. Discussed with CM-will discharge to home for continuation of care. Complete course of Omnicef. May use [place] sparingly for severe pain - Tempe 5 1/2 to 1 every 6 hours as needed. F/U with Romaine Mccracken in about 1 week for ortho evaluation - discussed with him. Will need F/U with Dr Hameed this week for medical evaluation. See orders for details.
[2017-12-23] MEDS: FERROUS SULFATE 324 MG TABLET PO SCH (08:49)
[2017-12-23] MEDS: CEFDINIR 300 MG PO SCH (08:49)
[2017-12-23] MEDS: VENLAFAXINE 75 MG TABLET PO SCH ×2 (08:49→17:16)
[2017-12-23] MEDS: MEMANTINE 10 MG TABLET PO SCH (08:49)
[2017-12-23] MEDS: GABAPENTIN 600 MG TABLET PO SCH ×2 (08:49→14:36)
[2017-12-23] MEDS: CARVEDILOL 3.125 MG TABLET PO SCH ×2 (08:49→17:16)
[2017-12-23] MEDS: LISINOPRIL 5 MG TABLET PO SCH (08:50)
[2017-12-23] MEDS: DIVALPROEX 125 MG TABLET PO SCH (08:51)
[2017-12-23] MEDS ORDERED: POLYETHYL GLYCOL 3350 17gm PACKET PO SCH (09:00)
[2017-12-23] MEDS ORDERED: SENNA + DOCUSATE TABLET PO SCH (09:00)
[2017-12-23] MEDS: ACETAMINOPHEN 325 MG TABLET PO PRN ×2 (09:52→14:36)
[2017-12-23] MEDS: AMIODARONE 200 MG TABLET PO SCH (12:17)
[2017-12-23 16:04] VITALS: BP 114/66; PULSE 70
--- NOTE | 2017-12-23 17:38 | Discharge Summary ---
Discharge Information Date of admission: 12/22/17 03:08 Anticipated date of discharge: 12/23/17 Attending Physician: Arden Savage MD Primary care physician: Benjamín Hameed MD Consults: [facility] Screen [CONS] Routine Case Management Consult [CONS] Routine Reason For Exam: Assist with appropriate disposition planning, thx! IRU Screening [Inpatient Rehab Screening] [CONS] Routine - Discharge Diagnosis (1) Wrist fracture, closed Status: Acute (2) UTI (urinary tract infection) Status: Acute (3) Hyperlipidemia Status: Chronic (4) Dementia Status: Chronic (5) Thyroid disease Status: Chronic (6) COPD (chronic obstructive pulmonary disease) Status: Chronic Discharge diagnosis Fall-mechanical with left wrist fracture and left frontal scalp hematoma Wrist fracture-splinted Associated conditions and complications Recent UTI On Omnicef for Klebsiella Pneumonia UTI - started 12/20/17 in ED. Dementia with recent behavioral changes Hypokalemia (POA) - resolved Asthma/COPD CAD VHD (2016) Hypothyroid Anemia HTN A-fib. Chronic pain GERD - Laboratory Labs: Admit Lab 12/22/17 11:00 WBC 6.3 Hgb 12.2 Hct 38.0 MCV 100.8 H Plt Count 160 Neut % (Auto) 61.2 Lymph % (Auto) 24.0 Randall % (Auto) 12.5 H Eos % (Auto) 0.5 Baso % (Auto) 0.2 Admit Lab 12/22/17 11:00 Sodium 138 D Potassium 3.4 L Chloride 100 Carbon Dioxide 25 Anion Gap 13 BUN 12.0 Creatinine 0.7 GFR Calculation 80 BUN/Creatinine Ratio 17 Glucose 143 H Calculated Osmolality 268 Calcium 8.6 Magnesium 2.0 Icterus Index < 2 TSH 1.81 12/23/17 08:06 12/23/17 08:06 - Microbiology Microbiology 12/22/17 10:42 Urine, Cath Straight Urine Culture - Preliminary No Growth After 1 Day - Radiology Radiology: Date of Exam: 12/22/17 Type of Exam: CT head/brain wo con FINDINGS: Moderate generalized atrophy. The ventricles are of normal size, shape , and configuration for the patient's age. There is no evidence of acute intracranial hemorrhage, midline displacement, or mass effect. There are extensive areas of low attenuation in the white matter which most likely represent changes of chronic microvascular ischemia. The CT attenuation of the brain parenchyma is otherwise normal within the cerebellum, brain stem, and cerebral hemispheres. The tympanic cavities and mastoid air cells are free of appreciable disease. There are no definite fractures of the skull base, calvarium, or visualized portion of the midface. Left frontal scalp hematoma. IMPRESSION: No CT evidence of acute traumatic intracranial injury. Date of Exam: 12/22/17 Type of Exam: XR wrist LT 3-4 views Impression: Closed posttraumatic impacted minimally dorsally angulated fracture of the distal radius. This does not appear to extend into the joint space however bony demineralization limits evaluation. There is also a minimally displaced fracture of the distal ulna and ulnar styloid. Osteoarthritis also noted in the first carpometacarpal joint. History of Present Illness HPI: Diana is a pleasantly demented 82-year-old female who is placed in observation status following her third emergency room visit in 24 hours. by review of records, the first 2 were occasioned by some sundowning, advancing delirium perhaps exacerbated by urinary tract infection for which she was placed on Omnicef. apparently she had recently had a rhino rocket placed for epistaxis, but she had pulled that out. late last evening, she apparently fell at home, and was discovered to have fractured her left distal radius and ulna. this was splinted in the emergency department, and according to orthopedics no short-term intervention is warranted otherwise. [place] , who i am told also has some dementia. her daughter is her durable power of attorney law clerk and requested admission, certainly as they are home alone with home health checking on them regularly, this did not appear to be a safe disposition at the late hour, she is placed in observation status for further evaluation and management and case management consultation in the morning. For complete details of the H&P refer to that document. Objective Vital signs: Temperature 97.5 F 12/23/17 16:00 Pulse Rate 70 12/23/17 16:00 Respiratory Rate 16 12/23/17 16:00 Blood Pressure 114/66 12/23/17 16:00 Pulse Oximetry 97 12/23/17 16:00 Height/Weight/BMI: Height 1.65 m Weight 83.8 kg Body Mass Index 30.2 Hospital Course This is a general summary of the patient's hospital course. For more details refer to the complete medical record. Hospital course: Assessment and plan - 12/22/17: 1. Fall-mechanical with left wrist fracture and Left frontal scalp hematoma; Wrist fracture-splinted. -No short term need for orthopedic intervention -Will need follow up as outpt 3. Recent UTI; On Omnicef for Klebsiella Pneumonia; Repeat urine for resolution. 5. Asthma/COPD -Resp therapy PRN -Currently without evidence of exacerbation. 7. VHD (2017) -Moderate aortic stenosis with a valve area of 1.16 cm2 with mild aortic insufficiency-Mild mitral regurgitation.-Mild tricuspid regurgitation with normal estimated pulmonary artery systolic pressure of 27.-Mild pulmonary insufficiency 8. Hypothyroid -Continue supplements 9. Dementia, depression -Continue Namenda, Effexor, Divalproex, Aricept, Zyprexa 10. Hyperlipidemia-Not on statins 11. Anemia-On iron and vit D supplements 12. HTN-Continue Coreg and lisinopril 13. PAF-On byycmlbdjl-Hgmrhnuja-Boh on OAC 2/2 frequent falls 14. Chronic pain-On gabapentin-continue 15. GERD-On PPI 16. Prophylaxis-PPI and SCDs 17. PT/OT evaluation It appears to me that she is likely unable to care for herself at home. I do not know the status of her husbands mental capacity. She may benefit from [facility] psych eval. Will get case management to work with her and her family on options at discharge. 12/23/17 1. Fall-mechanical with left wrist fracture and left frontal scalp hematoma 2. Wrist njtqjkkm-mazkuovo-Ue short term need for orthopedic intervention-Will need follow up as outpatient. 3. Recent UTI-On Omnicef for Klebsiella Pneumonia UTI - started 12/20/17 in ED.- Repeat UA reveals 20-30 WBC with 2+ bacteria - culture and sensitivity results pending. 4. Dementia with recent behavioral changes-Prior admit to [facility] in the past-May need placement upon discharge.-No behaviors currently.-Continue Namenda , Effexor, Divalproex, Aricept, Zyprexa 5. Asthma/COPD-Resp therapy PRN-Currently without evidence of exacerbation 6. CAD-No complaints of anginal symptoms-Continue home medications. 7. VHD (2017-Moderate aortic stenosis with a valve area of 1.16 cm2 with mild aortic insufficiency.-Mild mitral regurgitation.-Mild tricuspid regurgitation with normal estimated pulmonary artery systolic pressure of 27.-Mild pulmonary insufficiency 8. Hypothyroid -Continue supplements - TSH 1.81 on admission. 9. Anemia-On iron and vit D supplements - stable without signs of acute bleeding. 10. HTN-Continue coreg and lisinopril-Given recent falls, will assess orthostatic pressures. 12. A-fib.-On amiodarone-Continue to monitor closely on telemetry - NS rhythm currently.-No oral anticoagulation due to risk of falls. 13. Chronic pain-On gabapentin-continue 14. GERD-Continue Prilosec 15. PT/OT evaluation on 12/22/17-Significant concern for safety at home given cognitive impairments. Would benefit from SNU.-PT/OT noted decreased strength, activity tolerance, endurance, balance. Recommend inpatient PT/OT. Attempted IRU evaluation, but patient declined. Discussed with CM-will discharge to home for continuation of care; home health orders written. Complete course of Omnicef. May use [place] sparingly for severe pain - [place] 5 1/2 to 1 every 6 hours as needed. F/U with Romaine Mccracken in about 1 week for ortho evaluation - discussed with him. Will need F/U with Dr Hameed this week for medical evaluation. See orders for details. Time spent with patient: discharge greater than 30 minutes Resuscitation Status: Full Code Discharge Plan - Discharge Disposition Discharge Date: 12/23/17 Disposition: 86 Home Health Service *Condition: Stable Reason For Visit (Visit label in EMR): Lt fx, dementia - Discharge Medications *Discharge Medications: New Hydrocodone/APAP 5/325 [[place] 5/325] 1 tab PO Q6HR PRN #20 tab PRN Reason: Severe Pain PEG 3350 17gm PACKET [Miralax] 17 gm PO DAILY PRN packet PRN Reason: Constipation Senna + Docusate [Senna Plus Tablet] 1 tab PO BID PRN tablet PRN Reason: Constipation Continue Carvedilol [Coreg] 3.125 mg PO BIDWM #0 tab Lisinopril [Prinivil] 5 mg PO DAILY Omeprazole [Prilosec] 20 mg PO DAILY Levothyroxine Tab [Synthroid] 137 mcg PO DAILY Ondansetron HCl [Zofran] 4 mg PO PRN Acetaminophen [Tylenol] 500 mg PO PRN Amiodarone [Pacerone] 200 mg PO NOON #0 tab Memantine [Namenda] 10 mg PO BID Donepezil [Aricept] 10 mg PO HS tab Ferrous Sulfate 325 mg PO HS LORazepam [Ativan] 0.5 mg PO DAILY PRN PRN Reason: Anxiety Cefdinir [Omnicef] 300 mg PO BID #14 cap OLANZapine ODT [ZyPREXA Zydis] 10 mg SL HS PRN #30 tab PRN Reason: Agitation/Restlessness Neurontin (gabapentin) 600 mg tablet 600 mg PO TID #90 tab venlafaxine 75 mg tablet 75 mg PO BID tab Depakote (divalproex) 125 mg tablet,delayed release 125 mg PO DAILY tab melatonin 10 mg capsule 10 mg PO HS No Action Cholecalciferol (Vitamin D3) [Vitamin D3] 2,000 unit PO TID - Discharge Packet/Instructions *Diet: Low sodium *Activity: As tolerated *Pain Management/Treatment: [place] 5/325 1/2 to 1 tablet every 6 hours for severe pain. My use acetaminophen for minor pain. *Wound Care: n/a Additional Instructions: Leave splint on. Do not get wet. Complete course on antibiotics started in ED. Be cautious about constipation with Wh[place] use. May use Miralax and/or Senna Plus as needed. *Expected Signs/Symptoms: Decrease of wrist pain with time. *Notify Physician if: Pain not controlled. *During Business Hours Contact: Dr Hameed *After Business Hours Contact: Call [facility] and have Dr Hameed or his covering provider contacted. *Pending Lab/Results: No Pending Lab - Referrals/Follow Up *Referrals/Follow Up: Romaine Mccracken PA [Physician [employer]in[employer]] - 1 Week (Follow up for wrist fracture. Call on Monday 12/25 for appointment. ) Benjamín Hameed MD [Primary Care Provider] - 1 Week (Hospital follow up in 1 week - call on Monday 12/25 for appointment. ) - Patient Handouts - Dismissal Complete Discharge Instructions are:: Complete Physician Narrative - Narrative Physician: Arden Savage MD Attestation Narrative: Date: 12/23/17 Time: 173 I have independently interviewed and examined patient prior to discharge. See my progress not for details. Medically stable for discharge.
== END 2017-12-23 18:47 | disposition home health service (06) ==
LOC: SRG 00:16 → ED 00:16 → SRG 03:05 → SUATTDRO 03:08
PROVIDERS: ADMIT Internal Medicine; ATTEND Hospitalist

== ENCOUNTER 2018-01-07 17:44 | Observation (INO) ==
--- NOTE | 2018-01-07 17:53 | Emergency Department Report ---
Fall HPI - General Chief Complaint: Fall Stated Complaint: fall,skin tears,headache,R knee pain Time Seen by Provider: 01/07/18 17:53 Source: patient, EMS Mode of arrival: EMS - History of Present Illness HPI Narrative: 82 YO F brought to ED via EMS for fall at home in her bathroom. Patient was transferring from wheelchair to toilet when she slid to the floor per who witnessed incident and helped her to the floor. says patient did not hit her head or have LOC. Patient has hematoma on right leg and complaining of right knee pain. Patient has skin tears on right forearm. Patient has chronic headaches per since fall 4 years ago. Patient denies neck/back pain or other injuries. Left arm is in long arm cast from previous wrist fracture. Onset (ago): minute(s) - Related Data Home Medications Medication Instructions Recorded Confirmed Amiodarone [Pacerone] 200 mg PO NOON #0 tab 12/13/16 01/07/18 Carvedilol [Coreg] 3.125 mg PO BIDWM #0 tab 12/13/16 01/07/18 Memantine [Namenda] 10 mg PO BID 05/06/17 01/07/18 Acetaminophen [Tylenol] 500 mg PO PRN 12/20/17 01/07/18 Cholecalciferol (Vitamin D3) 2,000 unit PO TID 12/20/17 01/07/18 [Vitamin D3] Ferrous Sulfate 325 mg PO HS 12/20/17 01/07/18 Levothyroxine Tab [Synthroid] 137 mcg PO DAILY 12/20/17 01/07/18 Omeprazole [Prilosec] 20 mg PO DAILY 12/20/17 01/07/18 Ondansetron HCl [Zofran] 4 mg PO PRN 12/20/17 01/07/18 Divalproex Sodium 125 mg PO DAILY 01/07/18 01/07/18 Gabapentin [Neurontin] 600 mg PO TID 01/07/18 01/07/18 Melatonin/Pyridoxine HCl (B6) 1 each PO HS 01/07/18 01/07/18 [Melatonin 10 mg Tablet] Venlafaxine [Effexor] 75 mg PO DAILY 01/07/18 01/07/18 Previous Rx's Medication Instructions Recorded Donepezil [Aricept 10 mg] 10 mg PO HS tab 05/09/17 OLANZapine ODT [ZyPREXA Zydis] 10 mg SL HS PRN #30 tab 12/20/17 PEG 3350 17gm PACKET [Miralax] 17 gm PO DAILY PRN packet 12/23/17 Senna + Docusate [Senna Plus 1 tab PO BID PRN tab 12/23/17 Tablet] Bisacodyl Supp [Dulcolax] 10 mg IA DAILY PRN #10 suppositor 01/10/18 Hydrocodone/APAP 5/325 [[place] 1 tab PO Q6H PRN #30 tab 01/10/18 5/325] Midodrine [Proamatine] 2.5 mg PO 0700,1100,1500 #90 tab 01/10/18 Allergies Allergy/AdvReac Type Severity Reaction Status Date / Time Penicillins Allergy Severe ANAPHYLACTIC-ENDED Verified 01/07/18 18:09 IN ICU FOR A DAY fluoxetine Allergy Unknown Verified 01/07/18 18:09 Iodinated Contrast- Oral and Allergy Unknown RASH,SOA Verified 01/07/18 18:09 IV Dye morphine Allergy Unknown Verified 01/07/18 18:09 nitrofurantoin Allergy Unknown Verified 01/07/18 18:09 Sulfa (Sulfonamide Allergy Unknown RASH,ITCHY Verified 01/07/18 18:09 Antibiotics) iodine Allergy RASH, SOA Verified 01/07/18 18:09 aspirin AdvReac Intermediate HIGH BP, Verified 01/07/18 18:09 SOA naproxen AdvReac Intermediate Shortness Verified 01/07/18 18:09 of Breath (Air) metoclopramide AdvReac Unknown Verified 01/07/18 18:09 Review of Systems All systems: reviewed and negative except as stated Musculoskeletal: Reports: as per HPI, other (right knee pain) Neurological: Reports: as per HPI, headache PFSH Patient Stated Medical History Alzheimer's Disease Yes Dementia Yes Cataracts Yes Other HEENT Yes: Fractured right side of face Cardiac Arrhythmia Yes Hypertension Yes Valvular Heart Disease Yes Asthma Yes Bronchitis Yes Chronic Obstructive Pulmonary Yes Disease (COPD) Pneumonia Yes Gastroesophageal Reflux Yes Disease Other GI Yes: Chronic Constipation Hx Urinary Tract Infection Yes Other Yes: Kidney repair Anemia Yes Clotting Problems Yes Other Musculoskeletal Yes: Degenerative Arthritis Cellulitis Yes Shingles Yes Depression Yes Post Menopausal Yes Clinic Medical History (Last Reviewed 12/29/17 @ 11:29 by SARAH Bright) COPD (chronic obstructive pulmonary disease) (Chronic Medical) Tremor (Chronic Medical) Migraine headache (Chronic Medical) Depression (Chronic Medical) Anxiety (Chronic Medical) MRSA (methicillin resistant Staphylococcus aureus) (Inactive Medical) GERD (gastroesophageal reflux disease) (Chronic Medical) Thyroid disease (Chronic Medical) Hyperlipidemia (Chronic Medical) Mitral valve prolapse (Chronic Medical) Osteoporosis (Chronic Medical) Medical History Updates: Left rad/uln distal fx Surgical History: 1. Cholecystectomy - 12/2008. 2. Gastric bypass x 2. 3. Right TKR - 04/2010. 4. Pacemaker - 11/2016. 4. Kidney surgery - 2017 Family History: Family History (Last Reviewed 01/01/18 @ 08:19 by SARAH Bright) Son Bipolar 1 disorder Unknown , Suicide Bipolar 1 disorder Mother Coronary artery disease Osteoporosis Stroke Father Coronary artery disease Glaucoma Brother High blood pressure Hyperlipidemia Sister Cancer of colon - Social History Smoking status: Never smoker Substance use type: does not use Alcohol intake: never Housing: house Household members: spouse Current occupational status: retired Current residence: Apartment/Private Home Physical Exam - Limitations Limitations: no limitations - General General appearance: alert, in no apparent distress - Normal Exams: Head:: Normocephalic without trauma Eyes:: Pupils are PERRLA w/ EOMI, No scleral icterus, irritation ENMT:: No facial trauma, nasal exudates, pharyngeal erythema Neck:: Full range of motion, without adenopathy Chest/Respirations:: Clear all santiago, with good airflow, and symmetry bilaterally Cardiovascular:: Regular rate and rhythm Abdomen:: Bowel sounds positive, soft, non-tender, non-distended Neurological:: Patient is alert, and oriented, cranial nerves, motor/sensory/ cerebellar, exams w/o gross deficits, to observation Psychiatric:: Patient exhibits, appropriate attention, emotion and affect - ENT ENT exam: Present: TM's normal bilaterally - Neck Neck exam: Present: trachea midline - Expanded Neck Exam Neck exam focused ED: Absent: midline tenderness, anterior neck swelling - Expanded Upper Extremity Exam right Shoulder exam: Present: full ROM. Absent: tenderness, swelling, ecchymosis, deformity, dislocation, tenderness over AC joint Elbow exam: Present: full ROM. Absent: tenderness, swelling, deformity, pain w / pronation/supination Forearm/Wrist exam: Present: full ROM, other (see below). Absent: tenderness, swelling, deformity, tenderness over anatomical snuff box Hand exam: Present: full ROM. Absent: tenderness, swelling, ecchymosis, deformity Neuromotor exam: Normal: wrist extension, thumb opposition, thumb IP flexion, thumb adduction Vascular exam: Normal: radial pulse (2+) left Shoulder exam: Present: full ROM. Absent: tenderness, deformity, tenderness over AC joint Arm exam: Present: other (long arm cast intact) Neuromotor exam: Normal: fingers 2-5 abduction Vascular exam: Normal: capillary refill (< 3 sec) - Expanded Lower Extremity Exam right Hip/Pelvis exam: Present: full ROM, pelvis stable. Absent: tenderness, swelling , deformity, external rotation, internal rotation, shortening Knee exam: Present: tenderness (TTP over hematomas), knee extension intact, other (Large hematoma proximal and distal medial of knee). Absent: full ROM ( decreased due to pain), deformity, anterior drawer sign, posterior draw sign Ankle exam: Present: full ROM. Absent: tenderness, swelling, ecchymosis, deformity, crepitus, tenderness over talofibular lig Foot/toe exam: Present: full ROM. Absent: tenderness, swelling, ecchymosis, deformity, crepitus, tenderness at base of 5th metatarsal Neurovascular/Tendon exam: Present: normal fine/light touch. Absent: extremity cold to touch left Hip/Pelvis exam: Present: full ROM. Absent: tenderness, swelling, deformity, external rotation, internal rotation, shortening Knee exam: Present: full ROM. Absent: tenderness, swelling, deformity, anterior drawer sign, posterior draw sign Ankle exam: Present: full ROM. Absent: tenderness, swelling, deformity Foot/toe exam: Present: full ROM. Absent: tenderness, swelling, deformity, tenderness at base of 5th metatarsal Neurovascular/Tendon exam: Present: normal fine/light touch. Absent: extremity cold to touch - Back Exam Back exam: Present: full ROM. Absent: tenderness, muscle spasm, paraspinal tenderness - Skin Skin exam: Present: warm, dry, other (see below) - Expanded Neurological Exam Patient oriented to: Present: person, place - Other Other exam information: Partial skin tear 2cm x1.5 cm distal right forearm, no active bleeding Partial skin tear 2.5cm x 2cm distal right forearm, no active bleeding Partial skin tear 3.5cm x 2cm proximal right forearm, no active bleeding Partial skin tear 3.5cm x 2.5cm proximal right forearm, no active bleeding Course - Consultations Consultation #1: I discussed patient's HPI, PMH, VS, exam findings, x-rays and treatment in the ED with Dr. Celaya. I discussed that patient states she cannot go home and patient//POA agree patient is admitted for placement for skilled or senior living due to the fact she cannot take care of herself nor can her at this time. Dr. Celaya will admit observation status. Vital Signs Temperature 98.2 F 01/07/18 17:45 Pulse Rate 69 01/07/18 17:45 Respiratory Rate 20 01/07/18 17:45 Blood Pressure 149/84 H 01/07/18 17:45 Pulse Oximetry 97 01/07/18 17:45 Temperature 97.6 F 01/10/18 07:00 Pulse Rate 69 01/10/18 08:00 Respiratory Rate 16 01/10/18 07:00 Blood Pressure 148/81 H 01/10/18 07:00 Pulse Oximetry 94 01/10/18 07:00 Fall - MDM Narrative Medical decision making narrative: Patient reports minimal pain until she tired to get up and bear weight. Patient complained of pain in right knee and said it was too painful for her to walk with assistance of walker. Patient was given 50mcg of fentanyl. Right knee films show stable knee prosthesis with no acute osseous findings. Patient states she needs to be admitted she cannot go home "my cannot care for me like this". I discussed with patient and her that she would be admitted observation for placement in skilled or senior living which they agreed with. - Differential Diagnosis Likely: compression fracture (, subdural hematoma, knee fracture, contusion), concussion with loss of consciousness, concussion without loss of consciousness - Medical Records Attestation: I reviewed the patient's medical records. - Lab Data Result diagrams: 01/10/18 04:22 01/10/18 04:22 - Radiology Data Attestation: I reviewed the patient's radiology results. Right knee: no acute osseous finding (Dr. Hutchison) Disposition Clinical Impression: Right knee pain Qualifiers: Chronicity: acute Qualified Code(s): M25.561 - Pain in right knee Contusion of lower limb, right Qualifiers: Encounter type: initial encounter Qualified Code(s): S80.11XA - Contusion of right lower leg, initial encounter Avulsion of skin of forearm Qualifiers: Encounter type: initial encounter Laterality: right Qualified Code(s): S51.801A - Unspecified open wound of right forearm, initial encounter Disposition: 02 To [facility] Condition: Stable - Seen By: midlevel
[2018-01-07] MEDS ORDERED: FentaNYL 100 MCG/2 ML INJECTION NAS ONE (19:44)
[2018-01-07] MEDS ORDERED: FentaNYL 100 MCG/2 ML INJECTION IVP PRN ×2 (20:59→22:54)
--- NOTE | 2018-01-07 21:12 | XRay Report ---
EXAM: XR knee RT 3V HISTORY: knee pain with movement, surrounding hematomas TECHNIQUE: 3 views of the right knee were obtained. ENCOUNTER: Initial COMPARISON: Prior examination dated 02/03/2016 FINDINGS: There is stable appearance of the right total knee prosthesis. The orthopedic hardware is in good position showing no evidence of loosening or failure. The osseous structures of the right knee are moderately demineralized but show no evidence of acute fracture or focal destructive lesions. There is no evidence of suprapatellar bursa effusion or obvious soft tissue swelling. IMPRESSION: 1. No plain film evidence of acute bony trauma in the region of the right knee. 2. Stable appearance of the right total knee prosthesis showing no evidence of loosening or failure. If symptoms persist further evaluation with nuclear medicine bone scan may be helpful. .
[2018-01-07] MEDS ORDERED: OLANZapine ODT 5 MG TABLET PO PRN (22:44)
[2018-01-07] MEDS ORDERED: ACETAMINOPHEN 325 MG TABLET PO PRN (22:44)
[2018-01-07] MEDS ORDERED: SENNA + DOCUSATE TABLET PO PRN (22:44)
--- NOTE | 2018-01-07 22:44 | History & Physical Report ---
History of Present Illness Date: 01/08/18 Chief complaint: fall, right knee pain, hard to ambulate d/t pain HPI: 82 YO w/ multiple medical issues including dementia, HTN, Asthma/COPD, HLD and hypothyroidism is brought to ED via EMS for fall at home in her bathroom. Patient was transferring from wheelchair to toilet when she slid to the floor per who witnessed and helped her to the floor. says patient did not hit her head or have LOC. Patient thought to possibly have hit her right knee and has hematoma on right leg and complaining of right knee pain which is making it difficult for her to ambulate w/ her walker. Patient has skin tears on right forearm but no head/face contusions or lacerations. Patient desires admission and placement in rehab or skilled. Patient denies cp, soa, dyspnea, f/c/s, n/v/d, melena or hematochezia and denies change in bladder function. Patient has chronic headaches per since fall 4 years ago. Patient has cast on left arm d/t fall and wrist fracture w/i past 4-6 weeks. Patient was admitted at that time to be placed in Rehab however she refused to go to Rehab. In ER patient had xray right knee showing no acute fracture, did have TKA in that knee years ago. Patient's VSS reported as "normal" by ER provider and so no labs were done or drawn. Patient did receive Fentanyl 50 mcg intranasally and then IV and pain under better control. Patient refuses to bear weight on right knee at this time. Patient to be admitted to the Hospitalist service for further evaluation and management. Patient continues to c/o right knee pain and left wrist pain. Review of Systems All systems PM: 10-point ROS was reviewed, no additional remarkable complaints except Past Medical History Medical History: Medical History (Last Reviewed 12/29/17 @ 11:29 by SARAH Bright) COPD (chronic obstructive pulmonary disease) (Chronic) Tremor (Chronic) Migraine headache (Chronic) Depression (Chronic) Anxiety (Chronic) MRSA (methicillin resistant Staphylococcus aureus) (Inactive) GERD (gastroesophageal reflux disease) (Chronic) Thyroid disease (Chronic) Hyperlipidemia (Chronic) Mitral valve prolapse (Chronic) Osteoporosis (Chronic) Medical History Updates: Left rad/uln distal fx Surgical History: 1. Cholecystectomy - 12/2008. 2. Gastric bypass x 2. 3. Right TKR - 04/2010. 4. Pacemaker - 11/2016. 4. Kidney surgery - 2017 Family History: Family History (Last Reviewed 01/01/18 @ 08:19 by Trisha Gruber [facility]) Son Bipolar 1 disorder Unknown , Suicide Bipolar 1 disorder Mother Coronary artery disease Osteoporosis Stroke Father Coronary artery disease Glaucoma Brother High blood pressure Hyperlipidemia Sister Cancer of colon Family History: As Above - Social History Smoking status: Never smoker Medications Home Medications Medication Instructions Recorded Confirmed Type Amiodarone [Pacerone] 200 mg PO NOON #0 tab 12/13/16 01/07/18 History Carvedilol [Coreg] 3.125 mg PO BIDWM #0 tab 12/13/16 01/07/18 History Memantine [Namenda] 10 mg PO BID 05/06/17 01/07/18 History Donepezil [Aricept 10 mg] 10 mg PO HS tab 05/09/17 01/07/18 Rx Acetaminophen [Tylenol] 500 mg PO PRN 12/20/17 01/07/18 History Cholecalciferol (Vitamin D3) 2,000 unit PO TID 12/20/17 01/07/18 History [Vitamin D3] Ferrous Sulfate 325 mg PO HS 12/20/17 01/07/18 History Levothyroxine Tab [Synthroid] 137 mcg PO DAILY 12/20/17 01/07/18 History Lisinopril [Prinivil] 5 mg PO DAILY 12/20/17 01/07/18 History OLANZapine ODT [ZyPREXA Zydis] 10 mg SL HS PRN #30 tab 12/20/17 01/07/18 Rx Omeprazole [Prilosec] 20 mg PO DAILY 12/20/17 01/07/18 History Ondansetron HCl [Zofran] 4 mg PO PRN 12/20/17 01/07/18 History PEG 3350 17gm PACKET [Miralax] 17 gm PO DAILY PRN packet 12/23/17 01/07/18 Rx Senna + Docusate [Senna Plus 1 tab PO BID PRN tab 12/23/17 01/07/18 Rx Tablet] Divalproex Sodium 125 mg PO DAILY 01/07/18 01/07/18 History Gabapentin [Neurontin] 600 mg PO TID 01/07/18 01/07/18 History Melatonin/Pyridoxine HCl (B6) 1 each PO HS 01/07/18 01/07/18 History [Melatonin 10 mg Tablet] Venlafaxine [Effexor] 75 mg PO DAILY 01/07/18 01/07/18 History Allergies Allergy/AdvReac Type Severity Reaction Status Date / Time Penicillins Allergy Severe ANAPHYLACTIC-ENDED Verified 01/07/18 18:09 IN ICU FOR A DAY fluoxetine Allergy Unknown Verified 01/07/18 18:09 Iodinated Contrast- Oral and Allergy Unknown RASH,SOA Verified 01/07/18 18:09 IV Dye morphine Allergy Unknown Verified 01/07/18 18:09 nitrofurantoin Allergy Unknown Verified 01/07/18 18:09 Sulfa (Sulfonamide Allergy Unknown RASH,ITCHY Verified 01/07/18 18:09 Antibiotics) iodine Allergy RASH, SOA Verified 01/07/18 18:09 aspirin AdvReac Intermediate HIGH BP, Verified 01/07/18 18:09 SOA naproxen AdvReac Intermediate Shortness Verified 01/07/18 18:09 of Breath (Air) metoclopramide AdvReac Unknown Verified 01/07/18 18:09 Exam Vital Signs: Temperature 98.2 F 01/07/18 17:50 Pulse Rate 70 01/07/18 20:04 Respiratory Rate 20 01/07/18 19:51 Blood Pressure 152/99 H 01/07/18 19:30 Pulse Oximetry 96 01/07/18 20:04 - Constitutional Present: no acute distress - Routine HEENT Exam Head: Present: normocephalic, atraumatic Eye: Present: EOMI, PERRL ENT: Present: mucous membranes moist - Routine Neck Exam Present: supple, full ROM. Absent: JVD - Routine Respiratory Exam Present: CTA bilaterally - Routine Cardiovascular Exam Present: RRR, S1, S2, murmur - Routine Abdominal Exam Present: soft, normoactive bowel sounds, non distended, non tender - Routine Extremities Exam Absent: cyanosis, clubbing - Routine Psychiatric Exam Present: normal affect Comments: Does not recall specifics of events tonight, did say she hit her knee. Alert and oriented to person. - Additional findings Additional findings: Right knee w/ some swelling just distal to the joint, mainly medial swelling/ small hematoma; Left wrist in full arm cast; some tightness of cast around left hand Results - Labs CBC & Chem 7: 01/08/18 05:01 01/08/18 05:01 Assessment and Plan Assessment and Plan: Assessment: 1) Acute fall w/ right knee pain w/ hematoma and patient states difficult to ambulate d/t pain in right knee - no obvious fx on xray per report however h/o TKA in 2009 on right knee 2) Recent h/o falls - had recent fall w/ fracture of left wrist - currently in a long-arm cast 3) Dementia 4) HTN 5) H/o arrhythmia w/ reported h/o pacemaker and on rate controllers 6) HLD 7) Hypothyroidism 8) H/o MVP Plan: Admit to Hospitalist for monitoring overnight PT consult SW consult for placement - Rehab vs. SNF continue home meds as indicated Monitor BP Telemetry Labs in AM including CBC, BMP, Mg level and TSH Prn pain meds UA collected on medical unit - results pending Fall precautions Consider consult to ortho to eval right knee (prior h/o TKA) and left wrist cast - c/o pain. DVT Prophylaxis: SCD's GI Prophylaxis: other (Prilosec) Resuscitation Status: Full Code - Physician Narrative Physician: Fozia Wilburn MD Narrative: Date: 01/08/18 Time: 1333 CC: patient has underlying dementia and when seen by me this morning she did not know where she was or why she was here. According to the overnight history and physical she sustained another fall and came in with right knee pain and inability to ambulate secondary to that pain. HPI: 82-year-old female patient who lives at home with her and has underlying dementia with frequent falls presented to the emergency room after EMS was called to her home when she sustained a fall in her bathroom. Apparently she was transferring from the wheelchair to the toilet when she slid to the floor. Apparently her witnessed this and helped her to the floor. did say that she did not hit her head or have any loss of consciousness. She may have hit her right knee was complaining of right knee pain. She had skin tears on the right forearm that they did not document any head or face contusions or lacerations. When I saw her this morning she did report falling a week ago hurting her left arm which is in a long cast at present. After spending about 30 minutes with her she did remember that she fell she thinks it was yesterday again but cannot tell me the circumstances around it. Currently she complains of right arm pain more than left arm. The right arm is dressed due to the skin tears. Her knees are relatively unremarkable. She does state however that both of them hurt. I did do the review of systems with her but many times she will report I don't think so instead of a definitive yes or no. She does not think she's had any fever or chills. She does not think she's been short of breath. She states she has a cough but that's not new or worse. She denies chest discomfort. She thinks she has palpitations but that's not new either. Denies nausea, vomiting or abdominal pain. She does have some constipation. She thought she was going to go this morning and got on the toilet but then was unable to go. She denies any black tarry stools or bloody stools. She does not think her legs swell. Past medical history: Current medications: Aricept 10 mg QHS ferrous sulfate 325 mg QHS melatonin 10 mg QHS Zofran 4 mg PRN amiodarone 200 mg daily core egg 3.125 mg BID vitamin D3 2000 units TID divalproex sodium 125 mg daily gabapentin 600 mg TID Synthroid 137 g daily lisinopril 5 mg daily Namenda 10 mg BID Zyprexa 10 mg QHS Prilosec 20 mg daily Miralax 17 g daily senna plus BID Effexor 75 mg daily Allergies: penicillin fluoxetine iodinated contrast morphine nitrofurantoin sulfa antibiotics aspirin naproxen metoclopramide Medical history: please note past the history is obtained from old records as when I asked her the specific chronic medical illnesses she denied all. History of aortic stenosis history of coronary artery disease hypothyroidism- there is chart history of thyroid cancer hypercholesterolemia gastroesophageal reflux disease constipation history of kidney stones hypertension Depression arrhythmias including paroxysmal atrial fibrillation previously on chronic oral anticoagulation-status post permanent pacemaker placement 11/30/16 history of high-grade heart block dementia history left flank hematoma osteoporosis migraine headaches chronic tremor asthma/COPD Surgical history: permanent pacemaker cholecystectomy heart catheterization right total knee replacement foot surgery history of 2 intestinal bypasses in the Reh[place]-en-Y gastric bypass in a 1980 kidney surgery Family history: patient reports mom 83 of old age, prior records reports she had coronary artery disease and stroke patient reports dad of old age in his late 80s, old records revealed he also had coronary artery disease Social history: patient lives with her lifetime non-smoker walks with a walker or a cane but sometimes in the home unassisted no alcohol Review of systems: 14 point review of systems was attempted and is negative except as documented in the history of present illness. Physical exam: Gen: alert and oriented. NAD Skin: warm and dry HEENT: NC/AT PERRL, EOMI, Sclera, lids and conjunctiva wnl, MMM, OP clear Neck: supple. No JVD, Carotids 2+ without bruits. Lungs: clear, No rales, rhonchi, wheezes. CV: irregular. 3/6 ROBERTO, Abd: soft. NT/ND, +BS MS: No edema. Good strength and ROM. No significant swelling of either knee, hematoma on the medial right knee. Left arm in long cast, right arm skin tears with dressing in place. Neuro: No focal deficit, poor memory Psy: normal mood and affect Assessment and plan: Acute fall w/ right knee pain w/ hematoma and patient states difficult to ambulate d/t pain in right knee - no obvious fx on xray per report however h/o TKA in 2009 on right knee -patient seen by orthopedic surgery did not find any abnormalities. -Will consult physical therapy, occupational therapy and do an IRU screen Recent h/o falls - had recent fall w/ fracture of left wrist - currently in a long-arm cast Dementia -patient on Aricept and Namenda, Effexor and divalproex sodium -patient did tell me she does not think her and her can continue to live on their own -will get case management to assist in possible placement of both her and her HTN -on Coreg, lisinopril -adjust as needed for good blood pressure control H/o arrhythmia including atrial fibrillation and high-grade heart block -status post permanent pacemaker implantation -on amiodarone and carvedilol -telemetry Hypothyroidism -on levothyroxine valvular heart disease -aortic stenosis with an aortic valve area of 1.16 cm in 2017 -mitral valve prolapse Case management is going to work on trying to find place for patient and her . Hospital Course Summary Disclaimer: The visit summary below is not to be considered part of the above Progress Note.
[2018-01-07] MEDS ORDERED: FALL RISK - PHARMACY CONSULT MC ONE (22:47)
[2018-01-07] MEDS ORDERED: ALBUTEROL 2.5mg/3ml (0.083%) NEB AEROSOL PRN (22:53)
[2018-01-07 22:58] VITALS: BMI 31.1
[2018-01-07] MEDS: HYDROCODONE/APAP 5mg/325mg TABLET PO PRN (23:56)
[2018-01-07] MEDS: MELATONIN 1 MG TABLET PO PRN (23:56)
[2018-01-08] MEDS: CARVEDILOL 3.125 MG TABLET PO SCH ×2 (08:00→18:46)
[2018-01-08] MEDS: GABAPENTIN 600 MG TABLET PO SCH ×3 (08:00→20:02)
[2018-01-08] MEDS: OMEPRAZOLE 20 MG CAPSULE PO SCH (08:00)
[2018-01-08] MEDS: MEMANTINE 10 MG TABLET PO SCH ×2 (08:00→20:02)
[2018-01-08] MEDS: LEVOTHYROXINE 137 MCG TABLET PO SCH (08:00)
[2018-01-08] MEDS: DIVALPROEX 125 MG TABLET PO SCH (08:00)
[2018-01-08] MEDS: HYDROCODONE/APAP 5mg/325mg TABLET PO PRN ×3 (08:00→20:02)
[2018-01-08] MEDS ORDERED: LISINOPRIL 5 MG TABLET PO SCH (09:00)
[2018-01-08] MEDS ORDERED: VENLAFAXINE 75 MG TABLET PO SCH (09:00)
--- NOTE | 2018-01-08 13:11 | Orthopedic Consult Note ---
Orthopedic Consultation HPI - Consultation Info Consult Date: 01/08/18 Attending Physician: Fozia Wilburn MD - History of Present Illness 82-year-old female who is known to my clinic from a previous left distal radius fracture being treated nonoperatively in a cast. She is recently placed in a long arm cast because she was noncompliant with the short arm cast. She fell at home last evening and had increased knee pain. She had a total knee replacement 3 years ago. She was admitted for pain control and for evaluation for rehabilitation. She states to me that she has not been able to put weight on the leg since her fall. Review of Systems - Constitutional Constitutional: Absent: chills, fever(s), night sweats - Cardiovascular Cardiovascular: Absent: chest pain, palpitations - Respiratory Respiratory: Absent: cough, dyspnea - Gastrointestinal Gastrointestinal: Absent: abdominal pain, nausea, vomiting - Genitourinary Genitourinary Female: Absent: dysuria - Musculoskeletal Musculoskeletal: Present: as per HPI - Integumentary/Breasts Integumentary: Absent: lesions, rash - Neurological Neurological: Absent: numbness, tingling PFSH Patient Stated Medical History Alzheimer's Disease Yes Dementia Yes Cataracts Yes Other HEENT Yes: Fractured right side of face Cardiac Arrhythmia Yes Hypertension Yes Valvular Heart Disease Yes Asthma Yes Bronchitis Yes Chronic Obstructive Pulmonary Yes Disease (COPD) Pneumonia Yes Gastroesophageal Reflux Yes Disease Other GI Yes: Chronic Constipation Hx Urinary Tract Infection Yes Other Yes: Kidney repair Anemia Yes Clotting Problems Yes Other Musculoskeletal Yes: Degenerative Arthritis Cellulitis Yes Shingles Yes Depression Yes Post Menopausal Yes Clinic Medical History (Last Reviewed 12/29/17 @ 11:29 by Trisha Gruber, [facility]) COPD (chronic obstructive pulmonary disease) (Chronic Medical) Tremor (Chronic Medical) Migraine headache (Chronic Medical) Depression (Chronic Medical) Anxiety (Chronic Medical) MRSA (methicillin resistant Staphylococcus aureus) (Inactive Medical) GERD (gastroesophageal reflux disease) (Chronic Medical) Thyroid disease (Chronic Medical) Hyperlipidemia (Chronic Medical) Mitral valve prolapse (Chronic Medical) Osteoporosis (Chronic Medical) Medical History Updates: Left rad/uln distal fx Surgical History: 1. Cholecystectomy - 12/2008. 2. Gastric bypass x 2. 3. Right TKR - 04/2010. 4. Pacemaker - 11/2016. 4. Kidney surgery - 2016 Family History: Family History (Last Reviewed 01/01/18 @ 08:19 by Trisha Gruber Sangeetha) Son Bipolar 1 disorder Unknown , Suicide Bipolar 1 disorder Mother Coronary artery disease Osteoporosis Stroke Father Coronary artery disease Glaucoma Brother High blood pressure Hyperlipidemia Sister Cancer of colon - Social History Smoking status: Never smoker Substance use type: does not use Alcohol intake: never Housing: house Household members: spouse Current occupational status: retired Current residence: Apartment/Private Home Medications Home Medications Medication Instructions Recorded Confirmed Type Amiodarone [Pacerone] 200 mg PO NOON #0 tab 12/13/16 01/07/18 History Carvedilol [Coreg] 3.125 mg PO BIDWM #0 tab 12/13/16 01/07/18 History Memantine [Namenda] 10 mg PO BID 05/06/17 01/07/18 History Donepezil [Aricept 10 mg] 10 mg PO HS tab 05/09/17 01/07/18 Rx Acetaminophen [Tylenol] 500 mg PO PRN 12/20/17 01/07/18 History Cholecalciferol (Vitamin D3) 2,000 unit PO TID 12/20/17 01/07/18 History [Vitamin D3] Ferrous Sulfate 325 mg PO HS 12/20/17 01/07/18 History Levothyroxine Tab [Synthroid] 137 mcg PO DAILY 12/20/17 01/07/18 History Lisinopril [Prinivil] 5 mg PO DAILY 12/20/17 01/07/18 History OLANZapine ODT [ZyPREXA Zydis] 10 mg SL HS PRN #30 tab 12/20/17 01/07/18 Rx Omeprazole [Prilosec] 20 mg PO DAILY 12/20/17 01/07/18 History Ondansetron HCl [Zofran] 4 mg PO PRN 12/20/17 01/07/18 History PEG 3350 17gm PACKET [Miralax] 17 gm PO DAILY PRN packet 12/23/17 01/07/18 Rx Senna + Docusate [Senna Plus 1 tab PO BID PRN tab 12/23/17 01/07/18 Rx Tablet] Divalproex Sodium 125 mg PO DAILY 01/07/18 01/07/18 History Gabapentin [Neurontin] 600 mg PO TID 01/07/18 01/07/18 History Melatonin/Pyridoxine HCl (B6) 1 each PO HS 01/07/18 01/07/18 History [Melatonin 10 mg Tablet] Venlafaxine [Effexor] 75 mg PO DAILY 01/07/18 01/07/18 History Allergies Allergy/AdvReac Type Severity Reaction Status Date / Time Penicillins Allergy Severe ANAPHYLACTIC-ENDED Verified 01/07/18 18:09 IN ICU FOR A DAY fluoxetine Allergy Unknown Verified 01/07/18 18:09 Iodinated Contrast- Oral and Allergy Unknown RASH,SOA Verified 01/07/18 18:09 IV Dye morphine Allergy Unknown Verified 01/07/18 18:09 nitrofurantoin Allergy Unknown Verified 01/07/18 18:09 Sulfa (Sulfonamide Allergy Unknown RASH,ITCHY Verified 01/07/18 18:09 Antibiotics) iodine Allergy RASH, SOA Verified 01/07/18 18:09 aspirin AdvReac Intermediate HIGH BP, Verified 01/07/18 18:09 SOA naproxen AdvReac Intermediate Shortness Verified 01/07/18 18:09 of Breath (Air) metoclopramide AdvReac Unknown Verified 01/07/18 18:09 Exam - Constitutional Vital Signs: Temperature 97.5 F 01/08/18 07:32 Pulse Rate 94 01/08/18 11:19 Respiratory Rate 16 01/08/18 11:19 Blood Pressure 125/79 01/08/18 11:19 Pulse Oximetry 95 01/08/18 11:19 General: cooperative, no acute distress, well developed Nutritional Appearance: average body habitus Orientation: alert - RLE Postoperative Appearance: surgical incision well healed, knee alignment neutral Knee: other (medial hematoma without open wound to the medial knee. Knee is ligaments stable on exam. No effusion. Calf is soft and nontender.) - Cast/Brace Cast/Brace Side: left Cast/Brace Type: long arm cast Condition: in good condition without signs of skin ulceration - Labs Result Diagrams: 01/08/18 05:01 01/08/18 05:01 Abnormal lab results 01/07/18 01/08/18 01/08/18 Range/Units 23:24 05:01 05:01 RBC 3.46 L (4.00-5.20) M/MM3 Hgb 11.3 L (12-16) GM/DL Hct 33.6 L (36-46) % Immature Gran % (Auto) 1.9 H (0.0-0.5) % [place] % (Auto) 22.0 H (0-9.0) % [place] # (Auto) 1.3 H (0-0.8) T/MM3 Abs Immat Gran (auto) 0.11 H (0.00-0.03) T/MM3 Potassium 5.1 H (3.6-5) MEQ/L Creatinine 0.5 L (0.7-1.2) mg/dL Calculated Osmolality 260 L (261-280) MOSM/KG Specimen Hemolysis 56 H (0-25) Ur Specific [place] <=1.005 L (1.015-1.025) H & H 01/08/18 Range/Units 05:01 Hgb 11.3 L (12-16) GM/DL Hct 33.6 L (36-46) % - Diagnostic results Knee x-ray: image reviewed Impression and Recommendation (1) Wrist fracture, closed Current visit: No Qualifiers: Encounter type: subsequent encounter Laterality: left Fracture healing: with routine healing Qualified Code(s): S62.102D - Fracture of unspecified carpal bone, left wrist, subsequent encounter for fracture with routine healing Status: Acute Continue long arm cast this time follow up in my clinic as previous scheduled. (2) Contusion of lower limb, right Current visit: Yes Qualifiers: Encounter type: initial encounter Qualified Code(s): S80.11XA - Contusion of right lower leg, initial encounter Status: Acute The knee itself is stable and I see no signs of compromise to the knee replacement. I recommended physical therapy and weightbearing as tolerated. Follow-up as needed on an outpatient basis. Ice as needed. Hospital Course Summary Disclaimer: The visit summary below is not to be considered part of the above Progress Note.
[2018-01-08] MEDS: AMIODARONE 200 MG TABLET PO SCH (13:55)
[2018-01-08] MEDS: SALINE FLUSH 10ml SYRINGE IVF PRN ×2 (15:47→20:02)
[2018-01-08] MEDS: POLYETHYL GLYCOL 3350 17gm PACKET PO PRN (18:45)
[2018-01-08] MEDS: MELATONIN 1 MG TABLET PO PRN (20:55)
[2018-01-09] MEDS: HYDROCODONE/APAP 5mg/325mg TABLET PO PRN ×4 (01:54→17:51)
[2018-01-09] MEDS: MIDODRINE 2.5 MG TABLET PO SCH ×3 (06:27→15:43)
[2018-01-09] MEDS: LEVOTHYROXINE 137 MCG TABLET PO SCH (06:27)
[2018-01-09] MEDS: OMEPRAZOLE 20 MG CAPSULE PO SCH (06:27)
[2018-01-09] MEDS: SALINE FLUSH 10ml SYRINGE IVF PRN ×2 (06:28→10:32)
[2018-01-09] MEDS: POLYETHYL GLYCOL 3350 17gm PACKET PO PRN (08:16)
[2018-01-09] MEDS: CARVEDILOL 3.125 MG TABLET PO SCH ×2 (08:16→17:51)
[2018-01-09] MEDS: GABAPENTIN 600 MG TABLET PO SCH ×3 (08:17→20:00)
[2018-01-09] MEDS: VENLAFAXINE 75 MG TABLET PO SCH (08:17)
[2018-01-09] MEDS: MEMANTINE 10 MG TABLET PO SCH ×2 (08:17→20:00)
[2018-01-09] MEDS: DIVALPROEX 125 MG TABLET PO SCH (08:17)
[2018-01-09] MEDS ORDERED: LISINOPRIL 2.5 MG TABLET PO SCH (09:00)
[2018-01-09] MEDS: NS 1,000 ML IV SCH ×2 (10:33→22:34)
--- NOTE | 2018-01-09 10:48 | Progress Note ---
- Date 01/09/18 Subjective: F/U: s/p fall, knee pain. Diana is seen this morning while resting in bed. She denies any complaints or concerns. No chest pain, shortness of breath, abdominal pain, nausea, vomiting or dysuria. She was seen and evaluated by ortho who recommended continuation of long arm cast to left arm for previous wrist fracture and encouraged ice and weight bearing as tolerated with physical therapy for right knee pain. No disturbance to joint replacement noted. Awaiting IRU screen for possible admission to IRU. She is starting to recognize that she may not be able to return home. Unfortunately, limited placement options due to financial constraints. Case management continues to work on discharge planning. Objective Vital signs: Temperature 98.3 F 01/09/18 07:17 Pulse Rate 71 01/09/18 07:17 Respiratory Rate 14 01/09/18 07:17 Blood Pressure 107/60 01/09/18 07:17 Pulse Oximetry 91 01/09/18 07:17 Height/Weight/BMI: Height 5 ft 5 in Weight 182 lb 8.684 oz Body Mass Index 31.1 Comments: Resting in bed. - Constitutional Present: no acute distress, well nourished, well developed, obese, cooperative - Routine HEENT Exam Head: Present: normocephalic Eye: Present: PERRL. Absent: conjunctival icterus ENT: Present: mucous membranes dry, oropharynx clear - Routine Respiratory Exam Present: CTA bilaterally. Absent: respiratory distress, wheezes - Routine Cardiovascular Exam Present: RRR, S1, S2, murmur - Routine Abdominal Exam Present: soft, normoactive bowel sounds, non tender - Routine Extremities Exam Present: no edema, pulses intact Comments: left arm in long arm cast. - Routine Back/Spine/Pelvis Exam Back/Spine: Present: kyphosis. Absent: vertebral tenderness - Routine Musculoskeletal Exam Musculoskeletal: Present: no clubbing or cyanosis - Routine Skin Exam Present: intact, dry, warm Comments: Afebrile. - Routine Neurological Exam Present: alert, moving all extremities, hearing grossly intact, normal speech - Routine Lymphatic Exam Lymphatic: Absent: lymphedema - Routine Psychiatric Exam Present: cooperative Results - Labs CBC & Chem 7: 01/09/18 05:01 01/09/18 05:01 Assessment and Plan Assessment and Plan: Assessment: Acute fall w/ right knee pain w/ hematoma and patient states difficult to ambulate d/t pain in right knee - no obvious fx on xray per report however h/o TKA in 2010 on right knee Recent h/o falls - had recent fall w/ fracture of left wrist - currently in a long-arm cast Dementia Hypertension. History of arrhythmia w/ reported h/o pacemaker and on rate controllers Hyperlipidemia. Hypothyroidism History of MVP History of aortic stenosis. Hyponatremia - NEW DIAGNOSIS 01/09/18. Anemia, chronic - NEW DIAGNOSIS 01/09/18 Plan - 01/09/18: Evaluated by ortho who did not find any abnormalities with knee or joint replacement. Recommended ice and weight bearing as tolerated with PT to knee. Continue long arm cast to left with follow up with ortho as scheduled. Continue to encourage participation with therapies. Will have IRU screen for possible admission. Monitor orthostatic hypotension. Midodrine 2.5mg TID started 01/08/18 and home lisinopril held due to low blood pressures. Case management continues to work on discharge planning. Limited due to finances. Continue to monitor closely on telemetry. Monitor blood pressure closely. Lower today (107/60). Continue Aricept and Namenda, Effexor and divalproex sodium for dementia. Persistent anemia (Hgb 10.0). No signs of bleeding. New hyponatremia (Na 133). Encourage oral intake. NS 75cc/hr for gentle hydration. Recheck labs in AM to monitor blood counts, electrolytes and renal function. DVT Prophylaxis: SCD's GI Prophylaxis: other (Prilosec) Resuscitation Status: Full Code - Time spent with patient Time with patient PN: 30 minutes - Physician Narrative Physician: Arden Savage MD Narrative: Date: 01/09/18 Time: 1744 Have independently interviewed & examined pt. Chart reviewed. Case discussed with JOSUE & my PA. Care plan developed with my supervision; agree with above. Resting in bed. Reports feels miserable - bad headache and nausea. Feels AMANDA feeding into nausea. Breathing fair-notes slight SOA. Hard to be up due to AMANDA and knee pain. Lungs: decreased CV: regular AB: soft nt BS decreased MSE: awake alert Plan: IVF initiated due to decreasing sodium. Ortho ordered CT knee secondary to pain. Continue with supportive treatment. JOSUE has made arrangements for care at [facility] for respite and PT/OT through medicare part B. Hospital Course Summary Disclaimer: The visit summary below is not to be considered part of the above Progress Note. Hospital Course: Plan - 01/09/18: Evaluated by ortho who did not find any abnormalities with knee or joint replacement. Recommended ice and weight bearing as tolerated with PT to knee. Continue long arm cast to left with follow up with ortho as scheduled. Continue to encourage participation with therapies. Will have IRU screen for possible admission. Monitor orthostatic hypotension. Midodrine 2.5mg TID started 01/08/18 and home lisinopril held due to low blood pressures. Case management continues to work on discharge planning. Limited due to finances. Continue to monitor closely on telemetry. Monitor blood pressure closely. Lower today (107/60). Continue Aricept and Namenda, Effexor and divalproex sodium for dementia. Persistent anemia (Hgb 10.0). No signs of bleeding. New hyponatremia (Na 133). Encourage oral intake. NS 75cc/hr for gentle hydration. Recheck labs in AM to monitor blood counts, electrolytes and renal function.
[2018-01-09] MEDS: AMIODARONE 200 MG TABLET PO SCH (12:39)
--- NOTE | 2018-01-09 13:51 | Orthopedic Progress Note ---
Date: Date: 01/09/18 Time: 1347 Subjective/Severity of Illness: Diana is lying in bed when I visit. She complains of pain with her right knee. Nursing reports she hasn't tolerated ambulation due to pain. Patient has sat up to bedside with assist of PT per nursing. She is confused and has difficult time explaining extent of her pain and location, however is significant tenderness with palpation and ROM. No family at the bedside. Exam - Constitutional Vital Signs: Temperature 98.2 F 01/09/18 12:12 Pulse Rate 75 01/09/18 12:12 Respiratory Rate 16 01/09/18 12:12 Blood Pressure 126/69 01/09/18 12:12 Pulse Oximetry 94 01/09/18 12:12 General: cooperative, no acute distress, well developed Nutritional Appearance: average body habitus Orientation: alert, confused - LUE Neurological: no deficits, normal to light touch Left Upper Extremity Comments: Long arm cast in place, normal wear. Exposed digits neuro intact, capillary refill less than 2 secs. - RLE Postoperative Appearance: surgical incision well healed, knee alignment neutral , neurovascullary intact to extremities Knee: +1 effusion Knee Palpation: Tender to Palpation: anterior, tibial tubercle, other ( Generalized pain over right knee, tenderness to palpation from proximal to mid tibia) Skin: ecchymosis (proximal tibia) Flexion: other (unable to perform full ROM, painful) Neurological: no deficits Vascular: dorsalis pedis pulse within normal limits - Respiratory Respiratory Exam: non-labored - Cardiac Cardiovascular exam: pedal pulses intact - Wound Right Lower Dorsal Arm Wound Drainage Amount: Small Wound Drainage Description: Sanguineous - Labs Result Diagrams: 01/09/18 05:01 01/09/18 05:01 Abnormal lab results 01/09/18 01/09/18 Range/Units 05:01 05:01 RBC 3.09 L (4.00-5.20) M/MM3 Hgb 10.0 L D (12-16) GM/DL Hct 30.7 L (36-46) % Immature Gran % (Auto) 1.1 H (0.0-0.5) % [place] % (Auto) 19.2 H (0-9.0) % Neut # (Auto) 1.7 L (1.8-7.7) T/MM3 [place] # (Auto) 0.9 H (0-0.8) T/MM3 Abs Immat Gran (auto) 0.05 H (0.00-0.03) T/MM3 Sodium 133 L (134-144) MEQ/L Chloride 97 L (98-107) MEQ/L Calculated Osmolality 257 L (261-280) MOSM/KG H & H 01/08/18 01/09/18 Range/Units 05:01 05:01 Hgb 11.3 L 10.0 L D (12-16) GM/DL Hct 33.6 L 30.7 L (36-46) % Orthopedic Assessment and Plan (1) Wrist fracture, closed Status: Acute Qualifiers: Encounter type: subsequent encounter Laterality: left Fracture healing: with routine healing Qualified Code(s): S62.102D - Fracture of unspecified carpal bone, left wrist, subsequent encounter for fracture with routine healing Assessment and Plan: Continue with long arm cast, follow up as scheduled outpatient. (2) Contusion of lower limb, right Status: Acute Qualifiers: Encounter type: initial encounter Qualified Code(s): S80.11XA - Contusion of right lower leg, initial encounter (3) Right knee pain Status: Acute Qualifiers: Chronicity: acute Qualified Code(s): M25.561 - Pain in right knee Assessment and Plan: Patient very painful with ROM, tenderness to palpation. Has not been able to ambulate. Will proceed with CT of right knee/proximal-mid tibia. Hospital Course Summary Disclaimer: The visit summary below is not to be considered part of the above Progress Note. Hospital Course: Plan - 01/09/18: Evaluated by ortho who did not find any abnormalities with knee or joint replacement. Recommended ice and weight bearing as tolerated with PT to knee. Continue long arm cast to left with follow up with ortho as scheduled. Continue to encourage participation with therapies. Will have IRU screen for possible admission. Monitor orthostatic hypotension. Midodrine 2.5mg TID started 01/08/18 and home lisinopril held due to low blood pressures. Case management continues to work on discharge planning. Limited due to finances. Continue to monitor closely on telemetry. Monitor blood pressure closely. Lower today (107/60). Continue Aricept and Namenda, Effexor and divalproex sodium for dementia. Persistent anemia (Hgb 10.0). No signs of bleeding. New hyponatremia (Na 133). Encourage oral intake. NS 75cc/hr for gentle hydration. Recheck labs in AM to monitor blood counts, electrolytes and renal function.
--- NOTE | 2018-01-09 16:27 | CT Scan Report ---
Indication: Right knee pain s/p fall, s/p TKA 3 years PROCEDURE: CT knee RT wo con: Encounter: Initial Comparison: Radiographs dated January 07, 2018 Technique: Axial CT images were performed through the right knee without intravenous contrast. Coronal and sagittal two-dimensional reformats. Automated Exposure Control and Iterative Reconstruction dose reducing techniques were utilized. Findings: Metallic artifact from the total knee prosthesis. Severe bony demineralization limiting detection of nondisplaced fractures. There is subtle angulation of the medial tibial metaphyseal cortex seen on coronal images 20 through 23 without a discrete fracture line. No additional area concerning for fracture. Atrophy of the quadriceps and hamstring musculature. Subcutaneous hematoma in the proximal pretibial region measuring 3.1 x 2.6 x 0.8 cm. Impression: Severe bony demineralization limiting the exam. There is a possible nondisplaced buckle fracture of the proximal medial tibial metaphysis seen on one plane only. .
[2018-01-09] MEDS ORDERED: PROCHLORPERAZINE 10 MG/2 ML INJECTION IVP PRN (17:25)
[2018-01-09] MEDS: ACETAMINOPHEN 325 MG TABLET PO PRN (19:18)
[2018-01-09] MEDS: MELATONIN 1 MG TABLET PO PRN (20:01)
[2018-01-09 23:01] VITALS: RESP 16
[2018-01-10] MEDS: ACETAMINOPHEN 325 MG TABLET PO PRN (05:21)
[2018-01-10] MEDS: LEVOTHYROXINE 137 MCG TABLET PO SCH (05:35)
[2018-01-10] MEDS: OMEPRAZOLE 20 MG CAPSULE PO SCH (05:35)
[2018-01-10] MEDS: MIDODRINE 2.5 MG TABLET PO SCH ×2 (06:00→11:19)
[2018-01-10 07:11] VITALS: BP 148/81; TEMP 97.6; O2SAT 94
[2018-01-10] MEDS: HYDROCODONE/APAP 5mg/325mg TABLET PO PRN (07:21)
--- NOTE | 2018-01-10 08:29 | Orthopedic Progress Note ---
Date: Date: 01/10/18 Time: 825 Subjective/Severity of Illness: Diana is lying in bed this morning when I visit. She continues to have right knee pain, however complains of generalized pain. CT scan yesterday revealed possible nondisplaced buckle fracture of the proximal medial tibial metaphysis. Denies any pain or concerns with left wrist fracture. Has long arm cast in good condition. No nausea, soa, cp. Exam - Constitutional Vital Signs: Temperature 97.6 F 01/10/18 07:00 Pulse Rate 72 01/10/18 07:00 Respiratory Rate 16 01/10/18 07:00 Blood Pressure 148/81 H 01/10/18 07:00 Pulse Oximetry 94 01/10/18 07:00 General: cooperative, no acute distress, well developed Nutritional Appearance: average body habitus Orientation: alert, confused - LUE Vascular: capillary refill <2 seconds Left Upper Extremity Comments: long arm cast in good condition, normal wear. Patient has flexion contracture with 4th finger, ROM normal with other digits. - RLE Postoperative Appearance: surgical incision well healed, knee alignment neutral , neurovascullary intact to extremities Knee Palpation: Tender to Palpation: other (generalized tenderness to palpation over right knee. Eccymosis/contusion over medial tibia, with significant tenderness to palpation) Vascular: dorsalis pedis pulse within normal limits, capillary refill <2 seconds - Cast/Brace Cast/Brace Side: left Cast/Brace Type: long arm cast Condition: in good condition without signs of skin ulceration, shows normal signs of wear, exposed digits with good ROM and capillary refill - Respiratory Respiratory Exam: non-labored - Cardiac Cardiovascular exam: pedal pulses intact - Labs Result Diagrams: 01/10/18 04:22 01/10/18 04:22 Abnormal lab results 01/10/18 01/10/18 Range/Units 04:22 04:22 WBC 3.8 L (4.5-11.0) T/MM3 RBC 3.06 L (4.00-5.20) M/MM3 Hgb 9.8 L (12-16) GM/DL Hct 30.9 L (36-46) % MCV 101.0 H (80-100) UM3 RDW Std Deviation 50.3 H (36.9-50.2) [place] Immature Gran % (Auto) 1.1 H (0.0-0.5) % [place] % (Auto) 22.1 H (0-9.0) % Neut # (Auto) 1.3 L (1.8-7.7) T/MM3 Abs Immat Gran (auto) 0.04 H (0.00-0.03) T/MM3 Creatinine 0.6 L (0.7-1.2) mg/dL H & H 01/08/18 01/09/18 01/10/18 Range/Units 05:01 05:01 04:22 Hgb 11.3 L 10.0 L D 9.8 L (12-16) GM/DL Hct 33.6 L 30.7 L 30.9 L (36-46) % Orthopedic Assessment and Plan (1) Wrist fracture, closed Status: Acute Qualifiers: Encounter type: subsequent encounter Laterality: left Fracture healing: with routine healing Qualified Code(s): S62.102D - Fracture of unspecified carpal bone, left wrist, subsequent encounter for fracture with routine healing Assessment and Plan: Continue with long arm cast, follow up as scheduled outpatient. (2) Contusion of lower limb, right Status: Acute Qualifiers: Encounter type: initial encounter Qualified Code(s): S80.11XA - Contusion of right lower leg, initial encounter (3) Right knee pain Status: Acute Qualifiers: Chronicity: acute Qualified Code(s): M25.561 - Pain in right knee Assessment and Plan: Continue PT, WBAT with walker. Place patient in hinged knee brace. (4) Nondisplaced fracture of proximal end of right tibia Status: Acute Assessment and Plan: CT showed possible nondisplaced buckle fracture of proximal medial tibia. Will place patient in hinged knee brace, continue PT. WBAT with walker to protect patient. Decrease risk of falls. Follow up outpatient with Ortho in 2 weeks. Hospital Course Summary Disclaimer: The visit summary below is not to be considered part of the above Progress Note. Hospital Course: Plan - 01/09/18: Evaluated by ortho who did not find any abnormalities with knee or joint replacement. Recommended ice and weight bearing as tolerated with PT to knee. Continue long arm cast to left with follow up with ortho as scheduled. Continue to encourage participation with therapies. Will have IRU screen for possible admission. Monitor orthostatic hypotension. Midodrine 2.5mg TID started 01/08/18 and home lisinopril held due to low blood pressures. Case management continues to work on discharge planning. Limited due to finances. Continue to monitor closely on telemetry. Monitor blood pressure closely. Lower today (107/60). Continue Aricept and Namenda, Effexor and divalproex sodium for dementia. Persistent anemia (Hgb 10.0). No signs of bleeding. New hyponatremia (Na 133). Encourage oral intake. NS 75cc/hr for gentle hydration. Recheck labs in AM to monitor blood counts, electrolytes and renal function.
[2018-01-10] MEDS: GABAPENTIN 600 MG TABLET PO SCH (09:03)
[2018-01-10] MEDS: DIVALPROEX 125 MG TABLET PO SCH (09:03)
[2018-01-10] MEDS: VENLAFAXINE 75 MG TABLET PO SCH (09:04)
[2018-01-10] MEDS: CARVEDILOL 3.125 MG TABLET PO SCH (09:04)
[2018-01-10] MEDS: MEMANTINE 10 MG TABLET PO SCH (09:05)
--- NOTE | 2018-01-10 09:08 | Progress Note ---
- Date 01/10/18 Subjective: F/U: Acute fall with right knee pain Resting in bed this morning. Noted headache, some nausea still. Breathing well. Ortho recommending hinged knee brace to help with ambulation. Objective Vital signs: Temperature 97.6 F 01/10/18 07:00 Pulse Rate 72 01/10/18 07:00 Respiratory Rate 16 01/10/18 07:00 Blood Pressure 148/81 H 01/10/18 07:00 Pulse Oximetry 94 01/10/18 07:00 Height/Weight/BMI: Height 1.65 m Weight 83.5 kg Body Mass Index 31.1 - Constitutional Present: well nourished, well developed, obese, cooperative - Routine HEENT Exam Head: Present: normocephalic, atraumatic Eye: Present: EOMI, PERRL ENT: Present: mucous membranes moist - Routine Respiratory Exam Present: CTA bilaterally. Absent: rales, respiratory distress, rhonchi, wheezes , crackles - Routine Cardiovascular Exam Present: RRR, murmur - Routine Abdominal Exam Present: soft, normoactive bowel sounds, non distended, non tender - Routine Extremities Exam Present: no edema. Absent: cyanosis, clubbing - Routine Musculoskeletal Exam Musculoskeletal: Present: no clubbing or cyanosis - Routine Skin Exam Present: dry, warm - Routine Neurological Exam Present: alert, moving all extremities, vision grossly intact, hearing grossly intact, normal speech - Routine Psychiatric Exam Present: normal affect, cooperative Results - Labs CBC & Chem 7: 01/10/18 04:22 01/10/18 04:22 Assessment and Plan Assessment and Plan: Assessment Acute fall w/ right knee pain w/ hematoma and patient states difficult to ambulate d/t pain in right knee - no obvious fx on xray per report however h/o TKA in 2009 on right knee Recent h/o falls - had recent fall w/ fracture of left wrist - currently in a long-arm cast Dementia Hypertension. History of arrhythmia w/ reported h/o pacemaker and on rate controllers Hyperlipidemia. Hypothyroidism History of MVP History of aortic stenosis. Hyponatremia (Not POA) Anemia, chronic Plan Ortho recommends hinged knee brace to right knee to add stability to knee to help decrease risk for fall. Ideally on all the time but could be off at night if brace is a nuisance. May be weight bearing as tolerated with walker. CM has made care arrangement at [facility]. Lab stable. Breathing stable. Will discharge to [facility] for continued care. F/U with Dr Hameed in 1 week. F/U with ortho in 2-3 weeks. See orders for details. Case discussed with ortho and CM. Time spent with care and discharge greater than 30 minuted. DVT Prophylaxis: SCD's Resuscitation Status: Full Code - Physician Narrative Physician: Arden Savage MD Narrative: Date: 01/10/18 Time: 904 Hospital Course Summary Disclaimer: The visit summary below is not to be considered part of the above Progress Note. Hospital Course: 01/09/18 Evaluated by ortho who did not find any abnormalities with knee or joint replacement. Recommended ice and weight bearing as tolerated with PT to knee. Continue long arm cast to left with follow up with ortho as scheduled. Continue to encourage participation with therapies. Will have IRU screen for possible admission. Monitor orthostatic hypotension. Midodrine 2.5mg TID started 01/08/18 and home lisinopril held due to low blood pressures. Case management continues to work on discharge planning. Limited due to finances. Continue to monitor closely on telemetry. Monitor blood pressure closely. Lower today (107/60). Continue Aricept and Namenda, Effexor and divalproex sodium for dementia. Persistent anemia (Hgb 10.0). No signs of bleeding. New hyponatremia (Na 133). Encourage oral intake. NS 75cc/hr for gentle hydration. Recheck labs in AM to monitor blood counts, electrolytes and renal function. 01/10/18 Ortho recommends hinged knee brace to right knee to add stability to knee to help decrease risk for fall. Ideally on all the time but could be off at night if brace is a nuisance. May be weight bearing as tolerated with walker. CM has made care arrangement at [facility]. Lab stable. Breathing stable. Will discharge to [facility] for continued care. F/U with Dr Hameed in 1 week. F/U with ortho in 2-3 weeks. See orders for details.
[2018-01-10 09:37] VITALS: PULSE 69
--- NOTE | 2018-01-10 09:37 | Extended Care Facility Orders ---
Admission Orders Admit to:: ICF, Other Allergies/Adverse Reactions: Allergies Penicillins Allergy (Severe, Verified 01/07/18 18:09) ANAPHYLACTIC-ENDED IN ICU FOR A DAY fluoxetine Allergy (Unknown, Verified 01/07/18 18:09) Iodinated Contrast- Oral and IV Dye Allergy (Unknown, Verified 01/07/18 18:09) RASH,SOA morphine Allergy (Unknown, Verified 01/07/18 18:09) nitrofurantoin Allergy (Unknown, Verified 01/07/18 18:09) Sulfa (Sulfonamide Antibiotics) Allergy (Unknown, Verified 01/07/18 18:09) RASH,ITCHY iodine Allergy (Verified 01/07/18 18:09) RASH, SOA aspirin Adverse Reaction (Intermediate, Verified 01/07/18 18:09) HIGH BP, SOA naproxen Adverse Reaction (Intermediate, Verified 01/07/18 18:09) Shortness of Breath (Air) metoclopramide Adverse Reaction (Unknown, Verified 01/07/18 18:09) PT HAD REGLAN PREOPERATIVELY AND A REACTION THAT SHE WAS UNABLE TO DESCRIBE Admitting Diagnosis: right knee pain, s/p fall Admitting Physician: Arden Savage MD Attending Physician: Dr Hameed Code Status: Full Code Anticiapted Length of Stay: 30 days or less Rehab Potential: fair Rehab Prognosis: fair Diet: Regular May use Facility Protocol or Standing Orders: Yes May have flu vaccine: Yes Evaluations/Treatment: PT, OT Assisted Certification: I certify that SNF services are required to be given on an Inpatient basis because of the patients need for [facility] care on a continuing basis for the condition(s) for which he/she received inpatient hospital services prior to his/her transfer to the SNF. SNF inpatient care is necessary for the following reasons Indication for Assisted: Not Applicable - Additional Information In Event of Arrest: Start CPR,call 911,send patient to the ER Resident is Aware of Diagnosis: No (Dementia limits ) Referrals: Romaine Mccracken PA [Physician Pe Teacher] - 01/15/18 11:00 am Benjamín Hameed MD [Primary Care Provider] - 1 Week (Hospital follow up - frequent falls. ) Additional Orders: Activities: Hinged knee brace to right knee to add stability to knee to help decrease risk for fall. Ideally on all the time but could be off at night if brace is a nuisance. May be weight bearing as tolerated with walker. Walker for assistance. Fall risk.
--- NOTE | 2018-01-10 18:07 | Discharge Summary ---
Discharge Information Date of admission: 01/07/18 21:33 Anticipated date of discharge: 01/10/18 Attending Physician: Arden Savage MD Primary care physician: Benjamín Hameed MD Consults: Physician Consult: Ronaldo Thompson Reason For Exam: wrist/knee pain Discharge diagnosis Acute fall w/ right knee pain w/ hematoma and patient states difficult to ambulate d/t pain in right knee - no obvious fx on xray per report however h/o TKA in 2009 on right knee Associated conditions and complications Recent h/o falls - had recent fall w/ fracture of left wrist - currently in a long-arm cast Dementia Hypertension. History of arrhythmia w/ reported h/o pacemaker and on rate controllers Hyperlipidemia. Hypothyroidism History of MVP History of aortic stenosis. Hyponatremia (Not POA) - resolved Hyperkalemia (POA) - resolved Anemia, chronic - Laboratory Labs: Admit Lab 01/08/18 05:01 WBC 5.9 Hgb 11.3 L Hct 33.6 L MCV 97.1 Plt Count 231 Neut % (Auto) 40.4 Lymph % (Auto) 33.6 Hodgeman % (Auto) 22.0 H Eos % (Auto) 1.4 Baso % (Auto) 0.7 Admit Lab 01/08/18 01/08/18 05:01 07:00 Sodium 136 Potassium 5.1 H Chloride 102 Carbon Dioxide 23 Anion Gap 11 BUN 11.0 Creatinine 0.5 L GFR Calculation 118 BUN/Creatinine Ratio 22 Glucose 89 Calculated Osmolality 260 L Calcium 8.9 Magnesium 2.2 TSH 1.44 01/10/18 04:22 01/10/18 04:22 - Radiology Radiology: Date of Exam: 01/07/18 Type of Exam: XR knee RT 3V FINDINGS: There is stable appearance of the right total knee prosthesis. The orthopedic hardware is in good position showing no evidence of loosening or failure. The osseous structures of the right knee are moderately demineralized but show no evidence of acute fracture or focal destructive lesions. There is no evidence of suprapatellar bursa effusion or obvious soft tissue swelling. IMPRESSION: 1. No plain film evidence of acute bony trauma in the region of the right knee. 2. Stable appearance of the right total knee prosthesis showing no evidence of loosening or failure. If symptoms persist further evaluation with nuclear medicine bone scan may be helpful. Date of Exam: 01/09/18 Type of Exam: CT knee RT wo con Findings: Metallic artifact from the total knee prosthesis. Severe bony demineralization limiting detection of nondisplaced fractures. There is subtle angulation of the medial tibial metaphyseal cortex seen on coronal images 20 through 23 without a discrete fracture line. No additional area concerning for fracture. Atrophy of the quadriceps and hamstring musculature. Subcutaneous hematoma in the proximal pretibial region measuring 3.1 x 2.6 x 0.8 cm. Impression: Severe bony demineralization limiting the exam. There is a possible nondisplaced buckle fracture of the proximal medial tibial metaphysis seen on one plane only. History of Present Illness HPI: 82 YO w/ multiple medical issues including dementia, HTN, Asthma/COPD, HLD and hypothyroidism is brought to ED via EMS for fall at home in her bathroom. Patient was transferring from wheelchair to toilet when she slid to the floor per who witnessed and helped her to the floor. says patient did not hit her head or have LOC. Patient thought to possibly have hit her right knee and has hematoma on right leg and complaining of right knee pain which is making it difficult for her to ambulate w/ her walker. Patient has skin tears on right forearm but no head/face contusions or lacerations. Patient desires admission and placement in rehab or skilled. Patient denies cp, soa, dyspnea, f/c/s, n/v/d, melena or hematochezia and denies change in bladder function. Patient has chronic headaches per since fall 4 years ago. Patient has cast on left arm d/t fall and wrist fracture w/i past 4-6 weeks. Patient was admitted at that time to be placed in Rehab however she refused to go to Rehab. In ER patient had x-ray right knee showing no acute fracture, did have TKA in that knee years ago. Patient's VSS reported as "normal" by ER provider and so no labs were done or drawn. Patient did receive Fentanyl 50 mcg intranasally and then IV and pain under better control. Patient refuses to bear weight on right knee at this time. Patient to be admitted to the Hospitalist service for further evaluation and management. Patient continues to c/o right knee pain and left wrist pain. For complete details of the H&P refer to that document. Objective Vital signs: Temperature 97.6 F 01/10/18 07:00 Pulse Rate 69 01/10/18 08:00 Respiratory Rate 16 01/10/18 07:00 Blood Pressure 148/81 H 01/10/18 07:00 Pulse Oximetry 94 01/10/18 07:00 Height/Weight/BMI: Height 1.65 m Weight 83.5 kg Body Mass Index 31.1 Hospital Course This is a general summary of the patient's hospital course. For more details refer to the complete medical record. Hospital course: 01/07/18 Admit to Hospitalist for monitoring overnight PT consult SW consult for placement - Rehab vs. SNF continue home medications as indicated Monitor BP/Telemetry Labs in AM including CBC, BMP, Mg level and TSH Prn pain medications UA collected on medical unit - results pending Fall precautions Consider consult to ortho to eval right knee (prior h/o TKA) and left wrist cast - c/o pain. 01/08/18 Acute fall w/ right knee pain w/ hematoma and patient states difficult to ambulate d/t pain in right knee -no obvious fx on xray per report however h/o TKA in 2009 on right knee -patient seen by orthopedic surgery did not find any abnormalities. -Will consult physical therapy, occupational therapy and do an IRU screen Recent h/o falls - had recent fall w/ fracture of left wrist - currently in a long-arm cast Dementia -patient on Aricept and Namenda, Effexor and divalproex sodium -patient did tell me she does not think her and her can continue to live on their own -will get case management to assist in possible placement of both her and her HTN -on Coreg, lisinopril -adjust as needed for good blood pressure control H/o arrhythmia including atrial fibrillation and high-grade heart block -status post permanent pacemaker implantation -on amiodarone and carvedilol -Telemetry Hypothyroidism -on levothyroxine valvular heart disease -aortic stenosis with an aortic valve area of 1.16 cm in 2017 -mitral valve prolapse 01/09/18 Evaluated by ortho who did not find any abnormalities with knee or joint replacement. Recommended ice and weight bearing as tolerated with PT to knee. Continue long arm cast to left with follow up with ortho as scheduled. Continue to encourage participation with therapies. Will have IRU screen for possible admission. Monitor orthostatic hypotension. Midodrine 2.5mg TID started 01/08/18 and home lisinopril held due to low blood pressures. Case management continues to work on discharge planning. Limited due to finances. Continue to monitor closely on telemetry. Monitor blood pressure closely. Lower today (107/60). Continue Aricept and Namenda, Effexor and divalproex sodium for dementia. Persistent anemia (Hgb 10.0). No signs of bleeding. New hyponatremia (Na 133). Encourage oral intake. NS 75cc/hr for gentle hydration. Recheck labs in AM to monitor blood counts, electrolytes and renal function. 01/10/18 Ortho recommends hinged knee brace to right knee to add stability to knee to help decrease risk for fall. Ideally on all the time but could be off at night if brace is a nuisance. May be weight bearing as tolerated with walker. CM has made care arrangement at [facility]. Lab stable. Breathing stable. Will discharge to [facility] for continued care. Continue midodrine 2.5mg TID to help decrease orthostasis. Lisinopril stopped due to low BP and orthostasis. F/U with Dr Hameed in 1 week. F/U with ortho in 2-3 weeks. See orders for details. Time spent with patient: discharge greater than 30 minutes Resuscitation Status: Full Code Discharge Plan - Discharge Disposition Discharge Date: 01/10/18 Disposition: 04 To [facility] Home/Facility *Condition: Stable Reason For Visit (Visit label in EMR): right knee pain, s/p fall - Discharge Medications *Discharge Medications: New Bisacodyl Supp [Dulcolax] 10 mg KS DAILY PRN #10 suppositor PRN Reason: Constipation Hydrocodone/APAP 5/325 [Diamondhead 5/325] 1 tab PO Q6H PRN #30 tab PRN Reason: Moderate Pain Midodrine [Proamatine] 2.5 mg PO 0700,1100,1500 #90 tab Continue Carvedilol [Coreg] 3.125 mg PO BIDWM #0 tab Omeprazole [Prilosec] 20 mg PO DAILY Levothyroxine Tab [Synthroid] 137 mcg PO DAILY Ondansetron HCl [Zofran] 4 mg PO PRN Acetaminophen [Tylenol] 500 mg PO PRN PEG 3350 17gm PACKET [Miralax] 17 gm PO DAILY PRN packet PRN Reason: Constipation Senna + Docusate [Senna Plus Tablet] 1 tab PO BID PRN tab PRN Reason: Constipation Gabapentin [Neurontin] 600 mg PO TID Venlafaxine [Effexor] 75 mg PO DAILY Divalproex Sodium 125 mg PO DAILY Amiodarone [Pacerone] 200 mg PO NOON #0 tab Memantine [Namenda] 10 mg PO BID Donepezil [Aricept 10 mg] 10 mg PO HS tab Cholecalciferol (Vitamin D3) [Vitamin D3] 2,000 unit PO TID Ferrous Sulfate 325 mg PO HS OLANZapine ODT [ZyPREXA Zydis] 10 mg SL HS PRN #30 tab PRN Reason: Agitation/Restlessness Melatonin/Pyridoxine HCl (B6) [Melatonin 10 mg Tablet] 1 each PO HS Discontinued Lisinopril [Prinivil] 5 mg PO DAILY - Discharge Packet/Instructions *Diet: Regular diet *Activity: Hinged knee brace to right knee to add stability to knee to help decrease risk for fall. Ideally on all the time but could be off at night if brace is a nuisance. May be weight bearing as tolerated with walker. *Pain Management/Treatment: Diamondhead or Tylenol as needed. *Wound Care: N/A Additional Instructions: na *Expected Signs/Symptoms: Improvement of functional abilities. *Notify Physician if: Temp > 100.4. Falls. *During Business Hours Contact: Nursing staff at [facility] *After Business Hours Contact: Nursing staff at [facility] *Pending Lab/Results: No Pending Lab - Referrals/Follow Up *Referrals/Follow Up: Romaine Mccracken PA [Physician Clerical Coordinator] - 01/15/18 11:00 am Benjamín Hameed MD [Primary Care Provider] - 1 Week (Hospital follow up - frequent falls. ) - Patient Handouts Patient Handouts: Knee Pain (GEN) - Dismissal Complete Discharge Instructions are:: Complete Physician Narrative - Narrative Physician: Arden Savage MD Attestation Narrative: Date: 01/10/18 Time: 1802 I have independently interviewed and examined patient prior to discharge. See my progress noted for detail. Medically stable for discharge.
== END 2018-01-10 11:12 ==
LOC: MED 17:44 → ED 17:44 → SUATTDRO 21:33 → MED 22:35
PROVIDERS: ADMIT Internal Medicine; ATTEND Hospitalist

== ENCOUNTER 2018-02-20 10:27 | Observation (INO) ==
[2018-02-20] MEDS ORDERED: SALINE FLUSH 10ml SYRINGE IVF PRN (10:33)
[2018-02-20] MEDS ORDERED: NS 1,000 ML IV ONE (10:34)
--- NOTE | 2018-02-20 10:35 | Emergency Department Report ---
General Adult HPI - General Stated complaint: low blood pressure Time Seen by Provider: 02/20/18 10:32 Source: patient, EMS, old records reviewed Mode of arrival: EMS Limitations: no limitations - History of Present Illness HPI narrative: Patient is an 82-year-old female presents emergency primary for evaluation of low blood pressure altered mental status. Patient well-known to the [facility] emergency room department, was recently placed in [facility] for nursing care. Patient today noted to be decreased level of responsiveness, at one time bystander thought patient was not breathing so EMS was called 911 for CODE BLUE. On arrival patient did have a low blood pressure , 85/43 per EMS, however patient was responsive and without complaint. IV fluids were started and patient was brought to the [facility] emergency room for evaluation. On arrival patient's 1st blood pressure here 135 /74. Patient is responsive and without complaint - Related Data Home Medications Medication Instructions Recorded Confirmed Cholecalciferol (Vitamin D3) 4,000 unit PO DAILY 12/20/17 02/20/18 [Vitamin D3] Acetaminophen [Tylenol] 650 mg PO Q5H PRN 02/20/18 02/20/18 Cyanocobalamin (Vitamin B-12) 2,500 mcg PO DAILY 02/20/18 02/20/18 [Vitamin B-12] Gabapentin [Neurontin] 300 mg PO QID 02/20/18 02/20/18 Guaifenesin Oral Liq [Robitussin] 200 mg PO Q4H PRN 02/20/18 02/20/18 Melatonin 10 mg PO HS PRN 02/20/18 02/20/18 Midodrine [Proamatine] 2.5 mg PO TID 02/20/18 02/20/18 Venlafaxine [Effexor] 112.5 mg PO DAILY 02/20/18 02/20/18 guaiFENesin [Mucinex] 600 mg PO BID 02/20/18 02/20/18 Previous Rx's Medication Instructions Recorded Amiodarone [Pacerone] 200 mg PO NOON #30 tab 01/24/18 Benzonatate [Tessalon Perles] 200 mg PO TID PRN #20 cap 01/24/18 Carvedilol [Coreg] 3.125 mg PO BIDWM #60 tab 01/24/18 Divalproex [Depakote] 125 mg PO BID #60 tab 01/24/18 Donepezil [Aricept 10 mg] 10 mg PO HS #30 tab 01/24/18 Ferrous Sulfate [Feosol] 324 mg PO HS #30 tab 01/24/18 Levothyroxine Tab [Synthroid] 137 mcg PO DAILY #30 tab 01/24/18 Lisinopril [Prinivil] 10 mg PO DAILY #30 tab 01/24/18 Memantine [Namenda] 10 mg PO BID #60 tab 01/24/18 Omeprazole [Prilosec] 20 mg PO DAILY #30 cap 01/24/18 Senna + Docusate [Senna Plus 1 tab PO BID PRN tab 01/24/18 Tablet] Allergies Allergy/AdvReac Type Severity Reaction Status Date / Time ciprofloxacin Allergy Severe Anaphylactic Verified 02/20/18 10:40 Shock fluoxetine Allergy Severe Depression Verified 02/20/18 10:40 Iodinated Contrast- Oral and Allergy Severe RASH,SOA Verified 02/20/18 10:40 IV Dye nitrofurantoin Allergy Severe Shortness Verified 02/20/18 10:40 of Breath (Air) olanzapine Allergy Severe Confusion Verified 02/20/18 10:40 Penicillins Allergy Severe ANAPHYLACTIC-ENDED Verified 02/20/18 10:40 IN ICU FOR A DAY morphine Allergy Unknown Verified 02/20/18 10:40 Sulfa (Sulfonamide Allergy Unknown RASH,ITCHY Verified 02/20/18 10:40 Antibiotics) iodine Allergy RASH, SOA Verified 02/20/18 10:40 aspirin AdvReac Intermediate HIGH BP, Verified 02/20/18 10:40 SOA naproxen AdvReac Intermediate Shortness Verified 02/20/18 10:40 of Breath (Air) hydrocodone AdvReac Unknown Verified 02/20/18 10:40 metoclopramide AdvReac Unknown Verified 02/20/18 10:40 Review of Systems Constitutional: Reports: weakness. Denies: fever, chills, weight change Eyes: Denies: eye pain, eye discharge, vision change ENT: Denies: ear pain, throat pain, dental pain Cardiovascular: Denies: chest pain, palpitations, dyspnea on exertion Respiratory: Denies: cough, dyspnea, wheezes Gastrointestinal: Denies: abdominal pain, nausea, vomiting Genitourinary: Denies: dysuria, frequency Musculoskeletal: Denies: back pain Neurological: Reports: headache (this is somewhat chronic for her). Denies: weakness, numbness, paresthesias Endocrine: Denies: fatigue, heat or cold intolerance Hematological/Lymphatic: Denies: easy bleeding, easy bruising PFSH Patient Stated Medical History Alzheimer's Disease Yes Dementia Yes Cataracts Yes Other HEENT Yes: Fractured right side of face Cardiac Arrhythmia Yes Hypertension Yes Valvular Heart Disease Yes Asthma Yes Bronchitis Yes Chronic Obstructive Pulmonary Yes Disease (COPD) Pneumonia Yes Gastroesophageal Reflux Yes Disease Other GI Yes: Chronic Constipation Hx Renal Disease No Hx Urinary Tract Infection Yes Other Yes: Kidney repair Anemia Yes Clotting Problems Yes Other Musculoskeletal Yes: Degenerative Arthritis Cellulitis Yes Shingles Yes Depression Yes Post Menopausal Yes Clinic Medical History (Last Reviewed 02/14/18 @ 15:02 by SARAH Bright) COPD (chronic obstructive pulmonary disease) (Chronic Medical) Tremor (Chronic Medical) Migraine headache (Chronic Medical) Depression (Chronic Medical) Anxiety (Chronic Medical) MRSA (methicillin resistant Staphylococcus aureus) (Inactive Medical) GERD (gastroesophageal reflux disease) (Chronic Medical) Thyroid disease (Chronic Medical) Hyperlipidemia (Chronic Medical) Mitral valve prolapse (Chronic Medical) Osteoporosis (Chronic Medical) Medical History Updates: Left rad/uln distal fx Surgical History: 1. Cholecystectomy - 12/2008. 2. Gastric bypass x 2. 3. Right TKR - 04/2010. 4. Pacemaker - 11/2016. 4. Kidney surgery - 2016 Family History: Family History (Last Reviewed 02/14/18 @ 15:02 by SARAH Bright) Son Bipolar 1 disorder Unknown , Suicide Bipolar 1 disorder Mother Coronary artery disease Osteoporosis Stroke Father Coronary artery disease Glaucoma Brother High blood pressure Hyperlipidemia Sister Cancer of colon - Social History Smoking status: Never smoker Substance use type: does not use Alcohol intake: never Housing: house Household members: spouse Current occupational status: disabled Current residence: Apartment/Private Home Physical Exam - General General appearance: alert, in no apparent distress - Head Head exam: normocephalic, normal inspection - Eye Eye exam: Present: PERRL, EOMI - ENT ENT exam: Present: normal oropharynx, mucous membranes moist, TM's normal bilaterally - Neck Neck exam: Present: full ROM, trachea midline. Absent: tenderness - Chest Chest inspection: Present: symmetric chest wall rise. Absent: tenderness - Respiratory Respiratory exam: Present: normal lung sounds bilaterally. Absent: respiratory distress, wheezes, stridor - Cardiovascular Cardiovascular exam: Present: regular rate, normal rhythm, normal heart sounds - Abdominal Exam Abdominal exam: Present: soft, normal bowel sounds. Absent: distention, tenderness - Extremities Exam Extremities exam: Present: full ROM. Absent: tenderness - Skin Skin exam: Present: warm, dry - Expanded Neurological Exam Cranial nerves: Normal: EOM function (II, III, IV, ), facial sensation (V), facial palsy (VII), gag reflex (IX), spinal accessory function (XI), tongue deviation (XII) Motor strength - LUE: 5/5 Motor strength - RUE: 5/5 Motor strength - LLE: 5/5 Motor strength - RLE: 5/5 Sensory exam upper extremity: Normal: light touch Sensory exam lower extremity: Normal: light touch DTR: 2+: biceps (L), biceps (R), patellar (L), patellar (R) Coma scale eye opening: to voice Coma scale motor response: obeys commands Coma scale verbal response: confused Coma scale total: 13 - Psychiatric Psychiatric exam: Present: normal affect, normal mood Medical Decision Making - Medical Records Medical records reviewed: Yes: I reviewed the patient's medical records. - Lab Data Lab results reviewed: Yes: I reviewed the patient's lab results. Result diagrams: 02/20/18 10:42 02/20/18 10:42 Disposition Clinical Impression: Urinary tract infection Qualifiers: Urinary tract infection type: acute cystitis Hematuria presence: without hematuria Qualified Code(s): N30.00 - Acute cystitis without hematuria Disposition: Discharged Home, Self-Care Condition: Stable - Seen By: physician
--- NOTE | 2018-02-20 11:01 | CT Scan Report ---
Indication: headache acutely altered mental status low blood pressure PROCEDURE: CT head/brain wo con: Encounter: Initial Comparison: December 30, 2017 Technique: Axial CT images through the head were performed without contrast. Iterative Reconstruction dose reducing technique was utilized. FINDINGS: Moderate atrophy. The ventricles are stable. There are extensive confluent areas of low attenuation in the white matter which most likely represent changes from chronic microvascular ischemia. The brainstem, cerebellum, and cerebral hemispheres otherwise have a normal morphology and CT attenuation. There is no evidence of midline displacement. No hemorrhage, signs of acute territorial stroke, mass effect, mass lesions, or edema is evident. The visualized portions of the skull base, midface, and calvarium demonstrate no abnormality. The paranasal sinuses are well aerated and free of significant disease. Large left mastoid effusion again noted. IMPRESSION: No acute intracranial abnormality or hemorrhage. Stable head CT. .
--- NOTE | 2018-02-20 11:23 | XRay Report ---
Indication: altered mental status low blood pressure rule out sepsis PROCEDURE: XR chest 1V: Encounter: Initial Comparison: January 21, 2018 Findings: Increasing opacity along the right minor fissure. No lobar pneumonia or pneumothorax. Heart size and mediastinal contours are stable. Left pacemaker. Overlying monitoring leads. Impression: Increased opacity along the right minor fissure could be due to atelectasis or fluid. .
[2018-02-20] MEDS ORDERED: CEFTRIAXONE 1,000 MG in D5W 25 ML IV SCH (12:30)
[2018-02-20] MEDS ORDERED: CEFTRIAXONE 1 G in NS 100 ML IV ONE (12:38)
[2018-02-20 13:20] VITALS: BMI 31.3
[2018-02-20] MEDS ORDERED: PNEUMOCOCCAL 13 VACCINE 0.5ml INJECTION IM ONE (13:40)
--- NOTE | 2018-02-20 14:31 | History & Physical Report ---
History of Present Illness Date: 02/20/18 Chief complaint: Decreased LOC HPI: Diana Brunson is an 82 year old woman who resides at [facility]. She has a history of dementia and was a poor historian. Her daughter was present but the report she received from [facility] was incomplete. Per [facility] notes, she had a low BP and became lethargic and nonresponsive. The ED records indicate that one bystander thought she was not breathing, and EMS was activated. When EMS checked her BP it was 85/ 43. She was started on IVF. She was reportedly asymptomatic. In the ED she was normotensive. Her WBC was normal at 5.5. Na was low at 129. UA was positive for UTI and she was started on Rocephin. CT head was negative for acute findings. CXR showed possible atelectasis or fluid along the right minor fissure. Given her symptomatic hypotension, Diana was admitted to observation status under the hospitalist service. She was given 1L of NS and 1 gm of Rocephin in the ED. Review of Systems ROS unobtainable: due to mental status (pt reported completely negative ROS except for headache) All systems PM: 10-point ROS was reviewed, no additional remarkable complaints except - Constitutional Constitutional: Present: headache(s) (chronic). Absent: chills, fever(s) - EENMT Eyes: Absent: change in vision Nose: Absent: allergies Mouth/Throat: Absent: sore throat - Cardiovascular Cardiovascular: Absent: chest pain Vascular: Absent: pedal edema - Respiratory Respiratory: Absent: cough - Gastrointestinal Gastrointestinal: Absent: abdominal pain, constipation, diarrhea, nausea, vomiting - Genitourinary Genitourinary: Absent: dysuria, flank pain, urinary frequency - Musculoskeletal Musculoskeletal: Present: other (per daughter - left wrist fracture - velcro splint in place) - Integumentary/Breasts Integumentary: Present: other (per daughter - abrasions/contusions both arms) - Neurological Neurological: Present: as per HPI, frequent falls. Absent: dizziness, focal weakness, weakness - Psychiatric Psychiatric: Present: anxiety - Endocrine Endocrine: Absent: palpitations - Hematologic/Lymphatic Hematologic/Lymphatic: Absent: easy bruising - Allergic/Immunologic Allergic/Immunologic: Absent: seasonal rhinorrhea Past Medical History Medical History: Medical History (Last Reviewed 02/14/18 @ 15:02 by Trisha Gruber Sangeetha) COPD (chronic obstructive pulmonary disease) (Chronic) Tremor (Chronic) Migraine headache (Chronic) Depression (Chronic) Anxiety (Chronic) MRSA (methicillin resistant Staphylococcus aureus) (Inactive) GERD (gastroesophageal reflux disease) (Chronic) Thyroid disease (Chronic) Hyperlipidemia (Chronic) Mitral valve prolapse (Chronic) Osteoporosis (Chronic) Medical History Updates: history of orthostatic hypotension. Recurrent UTI. Dementia. Gait instability, hx of falls with fracture of the left distal radius and ulna on 12/22/17 and possible medial proximal tibia buckle fracture in Jan, 2018. Chronic headache. Aortic stenosis. A-fib. CAD. Hypothyroidism. Depression. Anemia. Insomnia. GERD. Vitamin D deficiency. Constipation Surgical History: 1. Cholecystectomy - 12/2008. 2. Gastric bypass x 2. 3. Right TKR - 04/2010. 4. Pacemaker - 11/2016. 4. Kidney surgery - 2016 Family History: Family History (Last Reviewed 02/14/18 @ 15:02 by SARAH rBight) Son Bipolar 1 disorder Unknown , Suicide Bipolar 1 disorder Mother Coronary artery disease Osteoporosis Stroke Father Coronary artery disease Glaucoma Brother High blood pressure Hyperlipidemia Sister Cancer of colon Family History: As Above - Social History Smoking status: Never smoker Medications Home Medications Medication Instructions Recorded Confirmed Type Cholecalciferol (Vitamin D3) 4,000 unit PO DAILY 12/20/17 02/20/18 History [Vitamin D3] Amiodarone [Pacerone] 200 mg PO NOON #30 tab 01/24/18 02/20/18 Rx Benzonatate [Tessalon Perles] 200 mg PO TID PRN #20 cap 01/24/18 02/20/18 Rx Carvedilol [Coreg] 3.125 mg PO BIDWM #60 tab 01/24/18 02/20/18 Rx Divalproex [Depakote] 125 mg PO BID #60 tab 01/24/18 02/20/18 Rx Donepezil [Aricept 10 mg] 10 mg PO HS #30 tab 01/24/18 02/20/18 Rx Ferrous Sulfate [Feosol] 324 mg PO HS #30 tab 01/24/18 02/20/18 Rx Levothyroxine Tab [Synthroid] 137 mcg PO DAILY #30 tab 01/24/18 02/20/18 Rx Lisinopril [Prinivil] 10 mg PO DAILY #30 tab 01/24/18 02/20/18 Rx Memantine [Namenda] 10 mg PO BID #60 tab 01/24/18 02/20/18 Rx Omeprazole [Prilosec] 20 mg PO DAILY #30 cap 01/24/18 02/20/18 Rx Senna + Docusate [Senna Plus 1 tab PO BID PRN tab 01/24/18 02/20/18 Rx Tablet] Acetaminophen [Tylenol] 650 mg PO Q5H PRN 02/20/18 02/20/18 History Cyanocobalamin (Vitamin B-12) 2,500 mcg PO DAILY 02/20/18 02/20/18 History [Vitamin B-12] Gabapentin [Neurontin] 300 mg PO QID 02/20/18 02/20/18 History Guaifenesin Oral Liq [Robitussin] 200 mg PO Q4H PRN 02/20/18 02/20/18 History Melatonin 10 mg PO HS PRN 02/20/18 02/20/18 History Midodrine [Proamatine] 2.5 mg PO TID 02/20/18 02/20/18 History Venlafaxine [Effexor] 112.5 mg PO DAILY 02/20/18 02/20/18 History guaiFENesin [Mucinex] 600 mg PO BID 02/20/18 02/20/18 History Allergies Allergy/AdvReac Type Severity Reaction Status Date / Time ciprofloxacin Allergy Severe Anaphylactic Verified 02/20/18 10:40 Shock fluoxetine Allergy Severe Depression Verified 02/20/18 10:40 Iodinated Contrast- Oral and Allergy Severe RASH,SOA Verified 02/20/18 10:40 IV Dye nitrofurantoin Allergy Severe Shortness Verified 02/20/18 10:40 of Breath (Air) olanzapine Allergy Severe Confusion Verified 02/20/18 10:40 Penicillins Allergy Severe ANAPHYLACTIC-ENDED Verified 02/20/18 10:40 IN ICU FOR A DAY morphine Allergy Unknown Verified 02/20/18 10:40 Sulfa (Sulfonamide Allergy Unknown RASH,ITCHY Verified 02/20/18 10:40 Antibiotics) iodine Allergy RASH, SOA Verified 02/20/18 10:40 aspirin AdvReac Intermediate HIGH BP, Verified 02/20/18 10:40 SOA naproxen AdvReac Intermediate Shortness Verified 02/20/18 10:40 of Breath (Air) hydrocodone AdvReac Unknown Verified 02/20/18 10:40 metoclopramide AdvReac Unknown Verified 02/20/18 10:40 Exam Vital Signs: Temperature 97.6 F 02/20/18 13:19 Pulse Rate 78 02/20/18 13:19 Respiratory Rate 16 02/20/18 13:19 Blood Pressure 142/82 H 02/20/18 13:19 Pulse Oximetry 99 02/20/18 13:19 Height/Weight/BMI: Height 1.65 m Weight 85.4 kg Body Mass Index 31.3 - Constitutional Present: no acute distress, well nourished, well developed - Routine HEENT Exam Head: Present: normocephalic Eye: Absent: conjunctival icterus, scleral injection ENT: Present: mucous membranes dry. Absent: dentition normal (dentures in place ) - Routine Neck Exam Present: supple. Absent: lymphadenopathy - Routine Respiratory Exam Present: CTA bilaterally - Routine Cardiovascular Exam Present: RRR, S1, S2, murmur (5/6) - Routine Abdominal Exam Present: soft, normoactive bowel sounds, non distended, non tender - Routine Extremities Exam Present: no edema, pulses intact, normal capillary refill. Absent: calf tenderness Comments: velcro splint to left wrist - Routine Skin Exam Present: intact, dry, warm, wounds (abrasions/contusions to Rt forearm) - Routine Neurological Exam Present: alert, moving all extremities, vision grossly intact, hearing grossly intact, normal speech. Absent: oriented X3, motor deficit, facial asymmetry - Routine Psychiatric Exam Present: cooperative Results - Labs CBC & Chem 7: 02/20/18 10:42 02/20/18 10:42 - Imaging and Cardiology Chest x-ray Status: image reviewed by me Additional comments: Increased opacity along the right minor fissure could be due to atelectasis or fluid. Elevated right hemidiaphragm PPM CT scan - head Additional comments: Stable; moderate atrophy. Assessment and Plan (1) UTI (urinary tract infection) Current visit: Yes Status: Acute (2) Hypotension Current visit: Yes Status: Acute Assessment and Plan: Assessment Hypotension, history of orthostatic hypotension UTI with history of recurrent UTI with E. coli and Klebsiella pneumoniae Hyponatremia, POA Dementia Gait instability, hx of falls with fracture of the left distal radius and ulna on 12/22/17 and possible medial proximal tibia buckle fracture in Jan, 2018 Chronic headache Aortic stenosis A-fib CAD Hypothyroidism Depression Anemia Insomnia GERD Vitamin D deficiency Constipation Plan Admit, obs status. Hold off on further IVF as sx improved and she's hemodynamically stable. Recheck BMP in am b/c of hyponatremia. Check orthostatic VS BID. Cont Rocephin for UTI - follow results of culture. Check depakote level. Cont home meds. PT/OT consult. DPOA: Lela, daughter. PCP: Dr. Hameed. D/W Dr. Brito DVT Prophylaxis: SCD's GI Prophylaxis: Protonix Resuscitation Status: Full Code - Physician Narrative Physician: Geneva Brito MD Narrative: Date: 02/20/18 Time: 0 I have independently evaluated and examined this patient. I reviewed the chart, the patient's history, and the FILTER CLEANER/PA's documented findings as above. We discussed and formulated the assessment and plan as above with additions as below: Mrs. Brunson was seen with her daughter at the bedside. Patient reports that she doesn't remember anything happening this morning and then responded in a lukewarm positive manner when asked about dyspnea, nausea, and abdominal pain; she denied difficulty urinating and was unsure when she last had a bowel movement. Blood pressure normalized after 120 mL of fluid given per EMS. Patient was seated in her wheelchair at the time blood pressure initially reported to be low. Patient is drowsy but responds to questions without difficulty Generalized pallor Respirations nonlabored, good airflow, breath sounds clear Regular rhythm with harsh 2/6 systolic murmur along the sternal borders Abdomen obese, soft, mild tenderness without guarding in the left lower quadrant and suprapubically; bowel sounds present Pyuria noted with positive leukocyte esterase and nitrite present on UA. Prior UTIs with Escherichia coli or Klebsiella. Chest x-ray reviewed by myself-linear atelectasis on the right, right hemidiaphragm modestly elevated. Head CT also reviewed by myself demonstrating no acute intracranial disease although there is moderate atrophy and extensive white matter changes consistent with microvascular ischemia. Monitor blood pressure carefully overnight, continue ceftriaxone, monitor random bladder scans to exclude urinary retention. Hospital Course Summary Disclaimer: The visit summary below is not to be considered part of the above Progress Note. Hospital Course: 02/20 Admit, obs status. Hold off on further IVF as sx improved and she's hemodynamically stable. Recheck BMP in am b/c of hyponatremia. Check orthostatic VS BID. Cont Rocephin for UTI - follow results of culture. Check depakote level. PT/OT consult.
[2018-02-20] MEDS ORDERED: SENNA + DOCUSATE TABLET PO PRN ×2 (15:01→15:03)
[2018-02-20] MEDS ORDERED: ONDANSETRON 4 MG/2 ML INJECTION IVP PRN (15:01)
[2018-02-20] MEDS ORDERED: BENZONATATE 200 MG CAPSULE PO PRN (15:03)
[2018-02-20] MEDS ORDERED: GUAIFENESIN 200mg/10ml ORAL LIQUID PO PRN (15:03)
[2018-02-20] MEDS ORDERED: MELATONIN 5 MG TABLET PO PRN (15:03)
[2018-02-20] MEDS: GABAPENTIN 300 MG CAPSULE PO SCH ×2 (17:33→20:43)
[2018-02-20] MEDS: CARVEDILOL 3.125 MG TABLET PO SCH (17:33)
[2018-02-20] MEDS: DIVALPROEX 125 MG TABLET PO SCH (20:39)
[2018-02-20] MEDS: MEMANTINE 10 MG TABLET PO SCH (20:39)
[2018-02-20] MEDS: MIDODRINE 2.5 MG TABLET PO SCH (20:40)
[2018-02-20] MEDS: ACETAMINOPHEN 325 MG TABLET PO PRN (20:43)
[2018-02-20] MEDS: GUAIFENESIN LA 600 MG TABLET PO SCH (20:43)
[2018-02-20] MEDS ORDERED: FERROUS SULFATE 324 MG TABLET PO SCH (21:00)
[2018-02-20] MEDS ORDERED: DONEPEZIL 10 MG TABLET PO SCH (21:00)
[2018-02-21 04:21] VITALS: RESP 18
[2018-02-21] MEDS: ACETAMINOPHEN 325 MG TABLET PO PRN ×2 (05:01→10:06)
[2018-02-21] MEDS ORDERED: LEVOTHYROXINE 137 MCG TABLET PO SCH (06:30)
[2018-02-21] MEDS ORDERED: OMEPRAZOLE 20 MG CAPSULE PO SCH (06:30)
[2018-02-21] MEDS: GABAPENTIN 300 MG CAPSULE PO SCH ×2 (08:52→12:56)
[2018-02-21] MEDS: GUAIFENESIN LA 600 MG TABLET PO SCH (08:53)
[2018-02-21] MEDS: DIVALPROEX 125 MG TABLET PO SCH (08:54)
[2018-02-21] MEDS: CARVEDILOL 3.125 MG TABLET PO SCH (08:54)
[2018-02-21] MEDS: MEMANTINE 10 MG TABLET PO SCH (08:54)
[2018-02-21] MEDS: MIDODRINE 2.5 MG TABLET PO SCH (08:55)
[2018-02-21] MEDS ORDERED: VENLAFAXINE 75 MG TABLET PO SCH (09:00)
[2018-02-21] MEDS ORDERED: CYANOCOBALAMIN (B-12) 500mcg TABLET PO SCH (09:00)
[2018-02-21] MEDS ORDERED: LISINOPRIL 10 MG TABLET PO SCH (09:00)
[2018-02-21] MEDS ORDERED: NS FLUSH BAG 500ml IV PRN (11:18)
[2018-02-21 11:20] VITALS: BP 123/66; PULSE 92; TEMP 98.5; O2SAT 96
[2018-02-21] MEDS ORDERED: CEFTRIAXONE 1 G in NS 100 ML IV SCH (12:00)
[2018-02-21] MEDS ORDERED: AMIODARONE 200 MG TABLET PO SCH (12:00)
--- NOTE | 2018-02-21 13:34 | Discharge Summary ---
Discharge Information Date of admission: 02/20/18 12:31 Attending Physician: Geneva Brito MD Primary care physician: Benjamín Hameed MD - Discharge Diagnosis (1) UTI (urinary tract infection) Status: Acute Hypotension, history of orthostatic hypotension - resolved UTI with history of recurrent UTI with E. coli and Klebsiella pneumoniae, sensitive to cephalexin Hyponatremia, POA - resolved Dementia Gait instability, hx of falls with fracture of the left distal radius and ulna on 12/22/17 and possible medial proximal tibia buckle fracture in Jan, 2018 Chronic headache Aortic stenosis A-fib CAD Hypothyroidism Depression Anemia Insomnia GERD Vitamin D deficiency Constipation - Laboratory Labs: 02/21/18 04:17 02/21/18 04:17 - Radiology Radiology: CXR: Increased opacity along the right minor fissure could be due to atelectasis or fluid. Head CT: Moderate atrophy. The ventricles are stable. There are extensive confluent areas of low attenuation in the white matter which most likely represent changes from chronic microvascular ischemia. The brainstem, cerebellum , and cerebral hemispheres otherwise have a normal morphology and CT attenuation. There is no evidence of midline displacement. No hemorrhage, signs of acute territorial stroke, mass effect, mass lesions, or edema is evident. The visualized portions of the skull base, midface, and calvarium demonstrate no abnormality. The paranasal sinuses are well aerated and free of significant disease. Large left mastoid effusion again noted. History of Present Illness HPI: Diana Brunson is an 82 year old woman who resides at [facility]. She has a history of dementia and was a poor historian. Her daughter was present but the report she received from [facility] was incomplete. Per [facility] notes, she had a low BP and became lethargic and nonresponsive. The ED records indicate that one bystander thought she was not breathing, and EMS was activated. When EMS checked her BP it was 85/ 43. She was started on IVF. She was reportedly asymptomatic. In the ED she was normotensive. Her WBC was normal at 5.5. Na was low at 129. UA was positive for UTI and she was started on Rocephin. CT head was negative for acute findings. CXR showed possible atelectasis or fluid along the right minor fissure. Given her symptomatic hypotension, Diana was admitted to observation status under the hospitalist service. She was given 1L of NS and 1 gm of Rocephin in the ED. Objective Vital signs: Temperature 98.5 F 02/21/18 11:19 Pulse Rate 92 02/21/18 11:19 Respiratory Rate 18 02/21/18 11:19 Blood Pressure 123/66 02/21/18 11:19 Pulse Oximetry 96 02/21/18 11:19 Height/Weight/BMI: Height 1.65 m Weight 83.4 kg Body Mass Index 31.3 - Constitutional Present: no acute distress, well nourished, well developed Comments: c/o headache - Routine HEENT Exam Head: Present: normocephalic Eye: Absent: conjunctival icterus, scleral injection ENT: Present: mucous membranes moist - Routine Respiratory Exam Present: CTA bilaterally - Routine Cardiovascular Exam Present: RRR, S1, S2, murmur - Routine Abdominal Exam Present: soft, normoactive bowel sounds, non distended, non tender - Routine Extremities Exam Present: no edema - Routine Skin Exam Present: intact, dry, warm - Routine Neurological Exam Present: alert, moving all extremities, normal speech. Absent: oriented X3, facial asymmetry - Routine Psychiatric Exam Present: cooperative Hospital Course This is a general summary of the patient's hospital course. For more details refer to the complete medical record. Hospital course: 02/20/18 Admit, obs status. Received 1L of IVF in the ED and BP improved. No further IVF were given on admission. Rocephin started for UTI. Prior UTIs with Escherichia coli or Klebsiella have been sensitive to 1st generation cephalosporins. 02/21/18 Urine culture pending. BP remained stable - no further hypotension. Hyponatremia resolved. Received 2nd dose of Rocephin. Stable for discharge back to [facility]. Rx Cefdinir x5 days at discharge - Dr. Hameed may follow culture results. Time spent with patient: discharge greater than 30 minutes Resuscitation Status: Full Code Discharge Plan - Discharge Disposition Discharge Date: 02/21/18 Disposition: 04 To [facility] Home/Facility *Condition: Stable Reason For Visit (Visit label in EMR): uti,hypotension - Discharge Medications *Discharge Medications: New Cefdinir 300 mg PO BID #10 cap Continue Benzonatate [Tessalon Perles] 200 mg PO TID PRN #20 cap PRN Reason: Cough Divalproex [Depakote] 125 mg PO BID #60 tab Ferrous Sulfate [Feosol] 324 mg PO HS #30 tab Lisinopril [Prinivil] 10 mg PO DAILY #30 tab Senna + Docusate [Senna Plus Tablet] 1 tab PO BID PRN tab PRN Reason: Constipation Amiodarone [Pacerone] 200 mg PO NOON #30 tab Donepezil [Aricept 10 mg] 10 mg PO HS #30 tab Levothyroxine Tab [Synthroid] 137 mcg PO DAILY #30 tab Memantine [Namenda] 10 mg PO BID #60 tab Omeprazole [Prilosec] 20 mg PO DAILY #30 cap guaiFENesin [Mucinex] 600 mg PO BID Midodrine [Proamatine] 2.5 mg PO TID Melatonin 10 mg PO HS PRN PRN Reason: Insomnia Guaifenesin Oral Liq [Robitussin] 200 mg PO Q4H PRN PRN Reason: Cough Cyanocobalamin (Vitamin B-12) [Vitamin B-12] 2,500 mcg PO DAILY Acetaminophen [Tylenol] 650 mg PO Q5H PRN PRN Reason: Discomfort Cholecalciferol (Vitamin D3) [Vitamin D3] 4,000 unit PO DAILY Carvedilol [Coreg] 3.125 mg PO BIDWM #60 tab Venlafaxine [Effexor] 112.5 mg PO DAILY Gabapentin [Neurontin] 300 mg PO QID - Discharge Packet/Instructions *Diet: Regular *Activity: Up with assistance; use walker to ambulate *Pain Management/Treatment: Tylenol if needed. *Wound Care: N/A *Expected Signs/Symptoms: Occasional Dizziness, Fatigue, Headaches (chronic) *Notify Physician if: Difficulty breathing or chest pain, vomiting or diarrhea, abdominal pain, passing out, stroke like symptoms, or any new concerns *During Business Hours Contact: Dr. Hameed' office *After Business Hours Contact: The on-call provider for Dr. Hameed *Pending Lab/Results: Follow up w/Provider (urine culture pending) - Referrals/Follow Up *Referrals/Follow Up: Benjamín Hameed MD [Primary Care Provider] - 1 Week (follow up on urine culture results) - Patient Handouts Patient Handouts: Urinary Tract Infection in Women (GEN) - Dismissal Complete Discharge Instructions are:: Complete Physician Narrative - Narrative Physician: Geneva Brito MD Attestation Narrative: Date: 02/21/18 Time: 6998 I have independently evaluated and examined this patient. I reviewed the chart, the patient's history, and the RHEOSTAT ASSEMBLER/PA's documented findings as above. We discussed and formulated the assessment and plan as above with additions as below: Mrs. Brunson complained of a migraine this morning when seen but reported no dyspnea or abdominal pain. No recurrent hypotension. Respirations were nonlabored, abdomen is soft with minimal tenderness in the right mid abdomen laterally but no suprapubic tenderness is present today. Urine culture positive < 100,000 cfu/ml Escherichia coli, sensitivities pending Stable for discharge following second dose of Rocephin at noon today; I will check culture/sensitivity results tomorrow and notify facility if antibiotic needs to be changed.
--- NOTE | 2018-02-21 13:54 | Extended Care Facility Orders ---
<Mena,Trisha D - Last Filed: 02/21/18 13:53> Admission Orders Admit to:: [facility] Allergies/Adverse Reactions: Allergies ciprofloxacin Allergy (Severe, Verified 02/20/18 10:40) Anaphylactic Shock fluoxetine Allergy (Severe, Verified 02/20/18 10:40) Depression INCREASED DEPRESSION Iodinated Contrast- Oral and IV Dye Allergy (Severe, Verified 02/20/18 10:40) RASH,SOA nitrofurantoin Allergy (Severe, Verified 02/20/18 10:40) Shortness of Breath (Air) olanzapine Allergy (Severe, Verified 02/20/18 10:40) Confusion Penicillins Allergy (Severe, Verified 02/20/18 10:40) ANAPHYLACTIC-ENDED IN ICU FOR A DAY ECZEMA, RASH morphine Allergy (Unknown, Verified 02/20/18 10:40) MORE PAIN Sulfa (Sulfonamide Antibiotics) Allergy (Unknown, Verified 02/20/18 10:40) RASH,ITCHY iodine Allergy (Verified 02/20/18 10:40) RASH, SOA aspirin Adverse Reaction (Intermediate, Verified 02/20/18 10:40) HIGH BP, SOA naproxen Adverse Reaction (Intermediate, Verified 02/20/18 10:40) Shortness of Breath (Air) INCREASE BP hydrocodone Adverse Reaction (Unknown, Verified 02/20/18 10:40) INCREASED BP metoclopramide Adverse Reaction (Unknown, Verified 02/20/18 10:40) "MAKES ME SHOCKY." Admitting Diagnosis: uti,hypotension Admitting Physician: Geneva Brito MD Attending Physician: Geneva Brito MD Code Status: Full Code Anticiapted Length of Stay: 30 days or less Rehab Potential: fair Rehab Prognosis: fair Diet: Regular Diet Wound/Incision Care: N/A May use Facility Protocol or Standing Orders: Yes May have flu vaccine: Yes Evaluations/Treatment: as needed [facility] Certification: I certify that SNF services are required to be given on an Inpatient basis because of the patients need for [facility] care on a continuing basis for the condition(s) for which she received inpatient hospital services prior to her transfer to the SNF. SNF inpatient care is necessary for the following reasons Indication for [facility]: Not Applicable - Additional Information In Event of Arrest: Start CPR,call 911,send patient to the ER Resident is Aware of Diagnosis: No (limited by dementia) Laboratory/Radiology: Please follow up on urine culture results Referrals: Benjamín Hameed MD [Primary Care Provider] - 1 Week (follow up on urine culture results) <Geneva Brito - Last Filed: 02/21/18 13:55> Admission Orders Admitting Diagnosis: uti,hypotension Admitting Physician: Geneva Brito MD Attending Physician: Geneva Brito MD Code Status: Full Code Diet: 02/20/18 Dinner Regular Diet [DIET] Diet Modifications: [facility] Certification: I certify that SNF services are required to be given on an Inpatient basis because of the patients need for [facility] care on a continuing basis for the condition(s) for which he/she received inpatient hospital services prior to his/her transfer to the SNF. SNF inpatient care is necessary for the following reasons
== END 2018-02-21 14:25 ==
LOC: ED 10:27 → EDHOLD 10:27 → MED 13:00
PROVIDERS: ADMIT Internal Medicine; ATTEND Internal Medicine